=== PATIENT | male | born 1990 | race Caucasian/White ===

== ENCOUNTER 2017-07-11 12:38 | Emergency (ER) | payer OTHER, SELFPAY ==
--- NOTE | 2017-07-11 13:10 | ER ---
Nurse's Notes [facility] Name: Angel Best Age: 27 yrs Sex: Male : 1990 Arrival Date: 07/11/2017 Time: 12:42 Bed 12 Private MD: Gilberto Tan M Diagnosis: Cellulitis of left upper limb Presentation: 07/11 12:47 Presenting complaint: Patient states: " I had this bump on my elbow and I thought it ph was a pimple, then it started swelling and getting red and hot." Swelling noted to L elbow, pt denies fever, N/V/D, reports hx of staph infection. Transition of care: patient was not received from another setting of care. Onset of symptoms was July 11, 2017. Risk Assessment: Do you want to hurt yourself or someone else? Patient reports no desire to harm self or others. Initial Sepsis Screen: Does the patient meet any 2 criteria? No. Patient's initial sepsis screen is negative. Does the patient have a suspected source of infection? Yes:. Care prior to arrival: None. 12:47 Method Of Arrival: Ambulatory ph 12:47 Acuity: MIKE 4 ph Historical: - Allergies: 12:50 NKA; ph - Home Meds: 12:50 Prozac Oral [Active]; Trazodone Oral [Active]; ph - PMHx: 12:50 Depression; ph - PSHx: 12:50 None; ph - Immunization history:: Adult Immunizations unknown. - Social history:: Smoking status: Patient/guardian denies using tobacco. - Ebola Screening: : No symptoms or risks identified at this time. Screenin:00 Abuse screen: Denies threats or abuse. Denies injuries from another. Nutritional iw screening: No deficits noted. Tuberculosis screening: No symptoms or risk factors identified. Fall Risk None identified. Assessment: 13:01 General: Appears in no apparent distress. Behavior is calm, cooperative. Pain: iw Complains of pain in left elbow. Neuro: Level of Consciousness is awake, alert, obeys commands, Oriented to person, place, time, situation. Cardiovascular: Patient's skin is warm and dry. Musculoskeletal: Range of motion: intact in all extremities. Vital Signs: 12:49 BP 136 / 107; Pulse 76; Resp 18; Temp 98.4; Pulse Ox 96% on R/A; Weight 113.4 kg; ph Height 6 ft. 0 in. (182.88 cm); Pain 4/10; 12:49 Body Mass Index 33.91 (113.40 kg, 182.88 cm) ph ED Course: 12:42 Patient arrived in ED. mr 12:43 Gilberto Tan MD is Private Physician. mr 12:49 Triage completed. ph 12:50 Arm band placed on. ph 12:51 Jorge Montes PA is PHCP. cp 12:51 Jorge Gonzalez MD is Attending Physician. cp 13:01 Demetria Rose, RN is Primary Nurse. iw 13:05 Patient has correct armband on for positive identification. iw 13:09 Gilberto Tan MD is Referral Physician. cp 13:30 No provider procedures requiring assistance completed. Patient did not have IV access iw during this emergency room visit. Administered Medications: No medications were administered Outcome: 13:10 Discharge ordered by MD. cp 13:32 Discharged to home ambulatory. iw 13:32 Condition: good 13:32 Discharge instructions given to patient, Instructed on discharge instructions, follow up and referral plans. medication usage, Demonstrated understanding of instructions, follow-up care, medications, Prescriptions given X 3. 13:33 Patient left the ED. iw Signatures: Madison Rosa mr Demetria Rose, RN RN Nini Pittman RN RN Jorge Montes PA PA cp
--- NOTE | 2017-07-11 13:11 | EDPHYS ---
Physician Documentation [facility] Name: Angel Osborne Age: 27 yrs Sex: Male : 1990 Arrival Date: 07/11/2017 Time: 12:42 Bed 12 Private MD: Gilberto Tan M ED Physician Jorge Gonzalez HPI: 07/11 13:01 This 27 yrs old Male presents to ER via Ambulatory with complaints of Elbow cp pain. 13:01 Onset: The symptoms/episode began/occurred this morning. Associated signs and symptoms: cp Pertinent positives: swelling, erythema, Pertinent negatives: injury. Modifying factors: the patient symptoms are aggravated by palpation. Historical: - Allergies: 12:50 NKA; ph - Home Meds: 12:50 Prozac Oral [Active]; Trazodone Oral [Active]; ph - PMHx: 12:50 Depression; ph - PSHx: 12:50 None; ph - Immunization history:: Adult Immunizations unknown. - Social history:: Smoking status: Patient/guardian denies using tobacco. - Ebola Screening: : No symptoms or risks identified at this time. ROS: 13:03 Eyes: Negative for injury, pain, redness, and discharge. cp 13:03 Constitutional: Negative for body aches, chills, fever, poor PO intake. 13:03 ENT: Negative for drainage from ear(s), ear pain, sore throat, difficulty swallowing, difficulty handling secretions. 13:03 Cardiovascular: Negative for chest pain, edema, palpitations. 13:03 Respiratory: Negative for cough, shortness of breath, wheezing. 13:03 Abdomen/GI: Negative for abdominal pain, nausea, vomiting, and diarrhea. 13:03 MS/extremity: Negative for injury or acute deformity, decreased range of motion, paresthesias. 13:03 Skin: Positive for cellulitis, erythema, swelling, of the left elbow. 13:03 All other systems are negative. Exam: 13:07 Head/Face: Normocephalic, atraumatic. cp 13:07 Constitutional: The patient appears in no acute distress, alert, awake, non-toxic, well developed, well nourished. 13:07 Eyes: Periorbital structures: appear normal, Conjunctiva: normal, no exudate, no injection, Lids and lashes: appear normal, bilaterally. 13:07 ENT: External ear(s): are unremarkable, Nose: is normal, Mouth: is normal, Posterior pharynx: is normal, airway is patent, no erythema, no exudate. 13:07 Neck: ROM/movement: is normal, is supple, without pain, no range of motions limitations, no nuchal rigidity. 13:07 Chest/axilla: Inspection: normal, Palpation: is normal, no crepitus, no tenderness. 13:07 Cardiovascular: Rate: normal, Rhythm: regular, Pulses: Pulses are 2+ in left radial artery. 13:07 Respiratory: the patient does not display signs of respiratory distress, Respirations: normal, no use of accessory muscles, no retractions, no splinting, no tachypnea. 13:07 Abdomen/GI: Exam negative for discomfort, distension, guarding, Inspection: abdomen appears normal. 13:07 Back: pain, is absent, ROM is normal. 13:07 Skin: abscess, not appreciated, cellulitis, that is mild, patchy, on the posterior aspect left elbow, induration, is not appreciated. Vital Signs: 12:49 BP 136 / 107; Pulse 76; Resp 18; Temp 98.4; Pulse Ox 96% on R/A; Weight 113.4 kg; ph Height 6 ft. 0 in. (182.88 cm); Pain 4/10; 12:49 Body Mass Index 33.91 (113.40 kg, 182.88 cm) ph MDM: 12:51 Patient medically screened. cp 13:00 Differential diagnosis: cellulitis, bursitis, abscess, septic joint. 13:09 Data reviewed: vital signs, nurses notes, and as a result, I will discharge patient. 13:09 Counseling: I had a detailed discussion with the patient and/or guardian regarding: the historical points, exam findings, and any diagnostic results supporting the discharge/admit diagnosis, the need for outpatient follow up, a family practitioner, to return to the emergency department if symptoms worsen or persist or if there are any questions or concerns that arise at home. Administered Medications: No medications were administered Disposition: 07/11/17 13:10 Discharged to Home. Impression: Cellulitis of left upper limb. - Condition is Stable. - Discharge Instructions: Cellulitis. - Prescriptions for Doxycycline Hyclate 100 mg Oral Tablet - take 1 tablet by ORAL route every 12 hours; 20 tablet. Bactrim DS 800- 160 mg Oral Tablet - take 1 tablet by ORAL route every 12 hours for 10 days; 20 tablet. Ibuprofen 800 mg Oral Tablet - take 1 tablet by ORAL route every 8 hours As needed take with food; 30 tablet. - Medication Reconciliation Form, Thank You Letter, Antibiotic Education, Prescription Opioid Use form. - Follow up: Gilberto Tan MD; When: 48 Hours; Reason: Recheck today's complaints. - Problem is new. - Symptoms are unchanged. Addendum: 07/15/2017 08:46 Co-signature as Attending Physician, Jorge Gonzalez MD I agree with the assessment and c bolaños plan of care. Signatures: Jorge Gonzalez MD MD cha Williams, Irene, RN RN iw Nini Pittman RN RN Jorge Montes PA PA cp Corrections: (The following items were deleted from the chart) 07/11 13:33 13:10 07/11/2017 13:10 Discharged to Home. Impression: Cellulitis of left upper limb. iw Condition is Stable. Forms are Medication Reconciliation Form, Thank You Letter, Antibiotic Education, Prescription Opioid Use. Follow up: Gilberto Tna; When: 48 Hours; Reason: Recheck today's complaints. Problem is new. Symptoms are unchanged. cp
[2017-07-11 13:41] VITALS: BP 136/107; TEMP 98.4; O2SAT 96
== END 2017-07-11 13:33 | disposition home or self-care (01) ==
LOC: ER 12:38
DX: L03.114 Cellulitis of left upper limb (principal); F32.9 Major depressive disorder, single episode, unspecified
CPT/HCPCS: 99282

== ENCOUNTER 2017-07-13 01:32 | Emergency (ER) | payer SELFPAY ==
--- NOTE | 2017-07-13 03:08 | ER ---
Nurse's Notes [facility] Name: Angel Best Age: 27 yrs Sex: Male : 1990 Arrival Date: 07/13/2017 Time: 01:33 Bed 16 Private MD: Diagnosis: Cellulitis and acute lymphangitis of other parts of limb Presentation: 07/13 02:17 Presenting complaint: Patient states: swelling, redness, and pain to left elbow began 07/10/17. Came to ER that day and began on 2 unknown antibiotics. Symptoms continue to worsen since then. Transition of care: patient was not received from another setting of care. Onset of symptoms was July 10, 2017. Risk Assessment: Do you want to hurt yourself or someone else? Patient reports no desire to harm self or others. Initial Sepsis Screen: Does the patient meet any 2 criteria? No. Patient's initial sepsis screen is negative. Care prior to arrival: Medication(s) given: 2 unknown antibiotics prescribed. 02:17 Method Of Arrival: Ambulatory 02:17 Acuity: MIKE 3 Triage Assessment: 02:20 General: Appears in no apparent distress. Behavior is calm, cooperative. Pain: Complains of pain in left elbow Pain currently is 5 out of 10 on a pain scale. Historical: - Allergies: 02:20 NKA; fc - Home Meds: 02:20 Prozac Oral [Active]; Trazodone Oral [Active]; fc - PMHx: 02:20 Depression; fc - PSHx: 02:20 None; fc - Immunization history:: Adult Immunizations up to date. - Social history:: Smoking status: Patient/guardian denies using tobacco, never smoked. - Ebola Screening: : Patient negative for fever greater than or equal to 101.5 degrees Fahrenheit, and additional compatible Ebola Virus Disease symptoms. - Family history:: not pertinent. Screenin:35 Fall Risk None identified. ea 02:54 Abuse screen: Denies threats or abuse. Nutritional screening: No deficits noted. ea Tuberculosis screening: No symptoms or risk factors identified. Assessment: 02:53 General: Appears in no apparent distress. Behavior is calm, cooperative, appropriate ea for age. Pain: Complains of pain in left arm. Neuro: Level of Consciousness is awake, alert, obeys commands, Oriented to person, place, time, situation. Cardiovascular: Patient's skin is warm and dry. Respiratory: Airway is patent Respiratory effort is even, unlabored, Respiratory pattern is regular, symmetrical. GI: No signs and/or symptoms were reported involving the gastrointestinal system. : No signs and/or symptoms were reported regarding the genitourinary system. EENT: No signs and/or symptoms were reported regarding the EENT system. Derm: Skin is pink, warm \T\ dry. 03:32 Reassessment: Patient and/or family updated on plan of care and expected duration. Pain ea level reassessed. Patient is alert, oriented x 3, equal unlabored respirations, skin warm/dry/pink. Discharge instructions given to patient, verbalized the understanding of instructions. Patient denies pain at this time. Vital Signs: 02:20 BP 147 / 86; Pulse 89; Resp 16; Temp 98.4; Pulse Ox 96% ; Weight 113.4 kg; Height 6 ft. fc 0 in. (182.88 cm); Pain 5/10; 03:35 BP 138 / 70; Pulse 88; Resp 18; Temp 98(O); Pulse Ox 97% on R/A; Pain 0/10; ea 02:20 Body Mass Index 33.91 (113.40 kg, 182.88 cm) fc ED Course: 01:33 Patient arrived in ED. ds1 02:19 Triage completed. fc 02:20 Arm band placed on right wrist. Patient placed in waiting room. fc 02:53 Suzanne Sterling, RN is Primary Nurse. ea 02:53 Patient has correct armband on for positive identification. Bed in low position. Call ea light in reach. Side rails up X 1. 02:59 Jorge Gonzalez MD is Attending Physician. nicolette 03:07 Cheikh Johnson MD is Referral Physician. nicolette 03:23 No provider procedures requiring assistance completed. Patient did not have IV access ea during this emergency room visit. Administered Medications: 03:15 Drug: Doxycycline 100 mg Route: PO; ea 03:36 Follow up: Response: No adverse reaction ea 03:15 Drug: Bactrim (160 mg-800 mg (DS) 1 tablet Route: PO; ea 03:36 Follow up: Response: No adverse reaction ea Point of Care Testing: Blood Glucose: 03:34 Blood Glucose: 75 mg/dL; ea Ranges: Outcome: 03:07 Discharge ordered by . nicolette 03:33 Discharged to home ambulatory, with significant other. isabel 03:33 Condition: improved 03:33 Discharge instructions given to patient, Instructed on discharge instructions, follow up and referral plans. medication usage, Demonstrated understanding of instructions, follow-up care, medications, Prescriptions given X 3. 03:36 Patient left the ED. ea Signatures: Jorge Gonzalez MD MD cha Chretien, Felicia, RN RN Meeta Quintana [facility] Suzanne Sterling RN RN ea Corrections: (The following items were deleted from the chart) 03:34 03:23 Blood Glucose: Blood Glucose Reading=65 mg/dL. isabel hall
--- NOTE | 2017-07-13 03:08 | EDPHYS ---
Physician Documentation [facility] Name: Angel Best Age: 27 yrs Sex: Male : 1990 Arrival Date: 07/13/2017 Time: 01:33 Bed 16 Private MD: ED Physician Jorge Gonzalez HPI: 07/13 03:04 This 27 yrs old Male presents to ER via Ambulatory with complaints of nicolette Swelling of Arm/Elbow. 03:04 The patient or guardian complains of pain, swelling, tenderness. The complaints affect nicolette the left elbow. Context: The problem was sustained at home, resulted from unknown cause. Onset: The symptoms/episode began/occurred 3 day(s) ago. Treatment prior to arrival includes: bactrim, doxycycline. Modifying factors: The symptoms are alleviated by nothing. the symptoms are aggravated by nothing. Associated signs and symptoms: The patient has no apparent associated signs or symptoms. Historical: - Allergies: 02:20 NKA; fc - Home Meds: 02:20 Prozac Oral [Active]; Trazodone Oral [Active]; fc - PMHx: 02:20 Depression; fc - PSHx: 02:20 None; fc - Immunization history:: Adult Immunizations up to date. - Social history:: Smoking status: Patient/guardian denies using tobacco, never smoked. - Ebola Screening: : Patient negative for fever greater than or equal to 101.5 degrees Fahrenheit, and additional compatible Ebola Virus Disease symptoms. - Family history:: not pertinent. ROS: 03:04 Constitutional: Negative for fever, chills, and weight loss, Eyes: Negative for injury, nicolette pain, redness, and discharge, ENT: Negative for injury, pain, and discharge, Neck: Negative for injury, pain, and swelling, Cardiovascular: Negative for chest pain, palpitations, and edema, Respiratory: Negative for shortness of breath, cough, wheezing, and pleuritic chest pain, Abdomen/GI: Negative for abdominal pain, nausea, vomiting, diarrhea, and constipation, Back: Negative for injury and pain, : Negative for injury, bleeding, discharge, and swelling, Skin: Negative for injury, rash, and discoloration, Neuro: Negative for headache, weakness, numbness, tingling, and seizure, Psych: Negative for depression, anxiety, suicide ideation, homicidal ideation, and hallucinations, Allergy/Immunology: Negative for hives, rash, and allergies, Endocrine: Negative for neck swelling, polydipsia, polyuria, polyphagia, and marked weight changes, Hematologic/Lymphatic: Negative for swollen nodes, abnormal bleeding, and unusual bruising. 03:04 MS/extremity: Positive for decreased range of motion, erythema, pain, swelling, tenderness, of the left elbow. Exam: 03:04 Constitutional: This is a well developed, well nourished patient who is awake, alert, nicolette and in no acute distress. Head/Face: Normocephalic, atraumatic. Eyes: Pupils equal round and reactive to light, extra-ocular motions intact. Lids and lashes normal. Conjunctiva and sclera are non-icteric and not injected. Cornea within normal limits. Periorbital areas with no swelling, redness, or edema. ENT: Nares patent. No nasal discharge, no septal abnormalities noted. Tympanic membranes are normal and external auditory canals are clear. Oropharynx with no redness, swelling, or masses, exudates, or evidence of obstruction, uvula midline. Mucous membranes moist. Neck: Trachea midline, no thyromegaly or masses palpated, and no cervical lymphadenopathy. Supple, full range of motion without nuchal rigidity, or vertebral point tenderness. No Meningismus. Chest/axilla: Normal chest wall appearance and motion. Nontender with no deformity. No lesions are appreciated. Cardiovascular: Regular rate and rhythm with a normal S1 and S2. No gallops, murmurs, or rubs. Normal PMI, no JVD. No pulse deficits. Respiratory: Lungs have equal breath sounds bilaterally, clear to auscultation and percussion. No rales, rhonchi or wheezes noted. No increased work of breathing, no retractions or nasal flaring. Abdomen/GI: Soft, non-tender, with normal bowel sounds. No distension or tympany. No guarding or rebound. No evidence of tenderness throughout. Back: No spinal tenderness. No costovertebral tenderness. Full range of motion. Male : Normal genitalia with no discharge or lesions. MS/ Extremity: Pulses equal, no cyanosis. Neurovascular intact. Full, normal range of motion. Neuro: Awake and alert, GCS 15, oriented to person, place, time, and situation. Cranial nerves II-XII grossly intact. Motor strength 5/5 in all extremities. Sensory grossly intact. Cerebellar exam normal. Normal gait. Psych: Awake, alert, with orientation to person, place and time. Behavior, mood, and affect are within normal limits. 03:04 Skin: cellulitis, that is mild, confluent, well demarcated, on the left elbow. Vital Signs: 02:20 BP 147 / 86; Pulse 89; Resp 16; Temp 98.4; Pulse Ox 96% ; Weight 113.4 kg; Height 6 ft. fc 0 in. (182.88 cm); Pain 5/10; 03:35 BP 138 / 70; Pulse 88; Resp 18; Temp 98(O); Pulse Ox 97% on R/A; Pain 0/10; ea 02:20 Body Mass Index 33.91 (113.40 kg, 182.88 cm) fc MDM: 02:59 Patient medically screened. [facility] 03:08 Data reviewed: vital signs, nurses notes, lab test result(s), EKG, radiologic studies, [facility] plain films. 07/13 03:04 Order name: Blood Glucose Level; Complete Time: 03:26 [facility] Administered Medications: 03:15 Drug: Doxycycline 100 mg Route: PO; ea 03:36 Follow up: Response: No adverse reaction ea 03:15 Drug: Bactrim (160 mg-800 mg (DS) 1 tablet Route: PO; ea 03:36 Follow up: Response: No adverse reaction ea Point of Care Testing: Blood Glucose: 03:34 Blood Glucose: 75 mg/dL; ea Ranges: Critical Glucose Levels:Adult <50 mg/dl or >400 mg/dl <40 mg/dl or >180 mg/dl Disposition: 07/13/17 03:07 Discharged to Home. Impression: Cellulitis and acute lymphangitis of other parts of limb. - Condition is Stable. - Discharge Instructions: Cellulitis, [id number]. - Prescriptions for Doxycycline Hyclate 100 mg Oral Tablet - take 1 tablet by ORAL route every 12 hours; 20 tablet. Motrin IB 200 mg Oral Tablet - take 2 tablet by ORAL route every 6 hours As needed as needed with food; 30 tablet. Bactrim DS 800- 160 mg Oral Tablet - take 1 tablet by ORAL route every 12 hours for 10 days; 20 tablet. - Medication Reconciliation Form, Thank You Letter, Antibiotic Education, Prescription Opioid Use form. - Follow up: Private Physician; When: 2 - 3 days; Reason: Recheck today's complaints, Continuance of care, Re-evaluation by your physician. Follow up: Cheikh Johnson MD; When: 2 - 3 days; Reason: Recheck today's complaints, Re-evaluation by your physician. - Problem is new. - Symptoms have improved. Signatures: Jorge Gonzalez MD MD cha Chretien, Felicia RN Suzanne Connor RN RN ea Corrections: (The following items were deleted from the chart) 03:36 03:07 07/13/2017 03:07 Discharged to Home. Impression: Cellulitis and acute ea lymphangitis of other parts of limb. Condition is Stable. Forms are Medication Reconciliation Form, Thank You Letter, Antibiotic Education, Prescription Opioid Use. Follow up: Private Physician; When: 2 - 3 days; Reason: Recheck today's complaints, Continuance of care, Re-evaluation by your physician. Follow up: Cheikh Johnson; When: 2 - 3 days; Reason: Recheck today's complaints, Re-evaluation by your physician. Problem is new. Symptoms have improved. nicolette
[2017-07-13] MEDS ORDERED: SMZ./TMP. 800/160 MG TABLET ONE (03:10)
[2017-07-13] MEDS ORDERED: DOXYCYCLINE 100 MG CAP PO ONE (03:10)
[2017-07-13 03:53] VITALS: BP 138/70; TEMP 98; O2SAT 97
== END 2017-07-13 03:36 | disposition home or self-care (01) ==
LOC: ER 01:32
DX: L03.114 Cellulitis of left upper limb (principal); I89.1 Lymphangitis; F32.9 Major depressive disorder, single episode, unspecified
CPT/HCPCS: 82962; 99283

== ENCOUNTER 2017-10-27 00:58 | Emergency (ER) | payer SELFPAY ==
--- NOTE | 2017-10-27 01:58 | EDPHYS ---
Physician Documentation [facility] Name: Angel Osborne Age: 27 yrs Sex: Male : 1990 Arrival Date: 10/27/2017 Time: 01:04 Bed 6 Private MD: ED Physician Charlie Montano HPI: 10/27 01:33 This 27 yrs old Male presents to ER via Ambulatory with complaints of Rectal cp Bleeding. 01:33 The patient presents to the emergency department with bleeding from the rectum/anus. cp 01:33 Onset: The symptoms/episode began/occurred 3 week(s) ago, intermittent. cp 01:33 Context: the patient history of hemorrhoids . Associate signs and symptoms: Pertinent cp positives: constipation, lower GI bleeding, bright red, Pertinent negatives: abdominal pain, diarrhea, fever, rectal pain. Historical: - Allergies: 01:21 NKA; fc - Home Meds: 01:21 None [Active]; fc - PMHx: 01:21 Depression; hemorrhoids; fc - PSHx: 01:21 None; fc - Immunization history:: Last tetanus immunization: unknown. - Social history:: Smoking status: Patient uses tobacco products, Vaps, Patient uses alcohol, occasionally. Patient/guardian denies using street drugs. - Ebola Screening: : Patient negative for fever greater than or equal to 101.5 degrees Fahrenheit, and additional compatible Ebola Virus Disease symptoms Patient denies exposure to infectious person Patient denies travel to an Ebola-affected area in the 21 days before illness onset. ROS: 01:34 Eyes: Negative for injury, pain, redness, and discharge. cp 01:34 Constitutional: Negative for body aches, chills, fever, poor PO intake. 01:34 ENT: Negative for drainage from ear(s), ear pain, sore throat, difficulty swallowing, difficulty handling secretions. 01:34 Cardiovascular: Negative for chest pain, palpitations. 01:34 Respiratory: Negative for cough, shortness of breath, wheezing. 01:34 Abdomen/GI: Positive for rectal bleeding, Negative for abdominal pain, vomiting, diarrhea. 01:34 Back: Negative for pain at rest, pain with movement. 01:34 All other systems are negative. Exam: 01:52 Head/Face: Normocephalic, atraumatic. cp 01:52 Constitutional: The patient appears in no acute distress, alert, awake, comfortable, non-toxic, well developed, well nourished. 01:52 Eyes: Periorbital structures: appear normal, Conjunctiva: normal, no exudate, no injection, Sclera: no appreciated abnormality, Lids and lashes: appear normal, bilaterally. 01:52 ENT: External ear(s): are unremarkable, Nose: is normal, Mouth: Lips: moist, Oral mucosa: moist. 01:52 Chest/axilla: Inspection: normal. 01:52 Cardiovascular: Rate: normal. 01:52 Respiratory: the patient does not display signs of respiratory distress, Respirations: normal. 01:52 Abdomen/GI: Inspection: abdomen appears normal, Bowel sounds: active, all quadrants, Palpation: abdomen is soft and non-tender, in all quadrants, Rectal exam: hemorrhoid(s), are not appreciated, fissure noted. 01:52 Back: pain, is absent, ROM is normal. Vital Signs: 01:05 BP 139 / 95; Pulse 95; Resp 20; Temp 98.1(O); Pulse Ox 100% on R/A; Weight 111.13 kg fc (R); Height 6 ft. 0 in. (182.88 cm) (R); Pain 0/10; 01:05 Body Mass Index 33.23 (111.13 kg, 182.88 cm) fc MDM: 01:11 Patient medically screened. cp 01:55 Differential diagnosis: hemorrhoids, fissure, abscess, pilonidal cyst. Data reviewed: vital signs, nurses notes, and as a result, I will discharge patient. Counseling: I had a detailed discussion with the patient and/or guardian regarding: the historical points, exam findings, and any diagnostic results supporting the discharge/admit diagnosis, to return to the emergency department if symptoms worsen or persist or if there are any questions or concerns that arise at home. Administered Medications: No medications were administered Disposition: 02:04 Co-signature as Attending Physician, Charlie Montano MD. pkl Disposition: 10/27/17 01:57 Discharged to Home. Impression: Anal fissure, unspecified. - Condition is Stable. - Discharge Instructions: Anal Fissure, Adult, How to Take a Sitz Bath. - Medication Reconciliation Form, Thank You Letter, Antibiotic Education, Prescription Opioid Use form. - Follow up: Emergency Department; When: As needed; Reason: Worsening of condition. - Problem is new. - Symptoms are unchanged. Signatures: Charlie Montano MD MD pkl Chretien, Felicia, RN RN Jorge Winston PA PA cp Bryson, James, RN RN jb4 Corrections: (The following items were deleted from the chart) 01:58 01:57 10/27/2017 01:57 Discharged to Home. 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 Condition is Stable. Forms are Medication Reconciliation Form, Thank You Letter, Antibiotic Education, Prescription Opioid Use. Follow up: Emergency Department; When: As needed; Reason: Worsening of condition. Problem is new. Symptoms are unchanged. cp 02:03 01:58 10/27/2017 01:57 Discharged to Home. Impression: Anal fissure, unspecified. jb4 Condition is Stable. Discharge Instructions: Anal Fissure, Adult. Forms are Medication Reconciliation Form, Thank You Letter, Antibiotic Education, Prescription Opioid Use. Follow up: Emergency Department; When: As needed; Reason: Worsening of condition. Problem is new. Symptoms are unchanged. cp
--- NOTE | 2017-10-27 01:58 | ER ---
Nurse's Notes [facility] Name: Angel Best Age: 27 yrs Sex: Male : 1990 Arrival Date: 10/27/2017 Time: 01:04 Bed 6 Private MD: Diagnosis: Anal fissure, unspecified Presentation: 10/27 01:05 Presenting complaint: Patient states: that 3 weeks ago he started to have bright red fc blood when he has a bowel movement. Blood is on paper and in toilet. Denies constipation. States that this happened 1 yr ago and it just stopped. Does have hx of hemorrhoids. Transition of care: patient was not received from another setting of care. Onset of symptoms was September 2017. Risk Assessment: Do you want to hurt yourself or someone else? Patient reports no desire to harm self or others. Initial Sepsis Screen: Does the patient meet any 2 criteria? HR > 90 bpm. Yes Does the patient have a suspected source of infection? No. Patient's initial sepsis screen is negative. Care prior to arrival: None. 01:05 Method Of Arrival: Ambulatory 01:05 Acuity: MIKE 4 fc Historical: - Allergies: 01:21 NKA; fc - Home Meds: 01:21 None [Active]; fc - PMHx: 01:21 Depression; hemorrhoids; fc - PSHx: 01:21 None; fc - Immunization history:: Last tetanus immunization: unknown. - Social history:: Smoking status: Patient uses tobacco products, Vaps, Patient uses alcohol, occasionally. Patient/guardian denies using street drugs. - Ebola Screening: : Patient negative for fever greater than or equal to 101.5 degrees Fahrenheit, and additional compatible Ebola Virus Disease symptoms Patient denies exposure to infectious person Patient denies travel to an Ebola-affected area in the 21 days before illness onset. Screenin:05 Abuse screen: Denies threats or abuse. Nutritional screening: No deficits noted. fc Tuberculosis screening: No symptoms or risk factors identified. Fall Risk None identified. Assessment: 01:57 General: Appears in no apparent distress. comfortable, Behavior is calm, cooperative, jb4 appropriate for age. Pain: Denies pain. Neuro: Level of Consciousness is awake, alert, obeys commands, Oriented to person, place, time, situation. Cardiovascular: Patient's skin is warm and dry. Respiratory: Airway is patent Respiratory effort is even, unlabored, Respiratory pattern is regular, symmetrical. GI: Abdomen is obese, Bowel sounds present X 4 quads. Abd is soft and non tender X 4 quads. : No signs and/or symptoms were reported regarding the genitourinary system. EENT: No signs and/or symptoms were reported regarding the EENT system. Derm: Skin is intact, Skin is pink, warm \T\ dry. Musculoskeletal: Circulation, motion, and sensation intact. Vital Signs: 01:05 BP 139 / 95; Pulse 95; Resp 20; Temp 98.1(O); Pulse Ox 100% on R/A; Weight 111.13 kg (R); Height 6 ft. 0 in. (182.88 cm) (R); Pain 0/10; 01:05 Body Mass Index 33.23 (111.13 kg, 182.88 cm) ED Course: 01:04 Patient arrived in ED. al2 01:05 Arm band placed on Patient placed in an exam room, on a stretcher. fc 01:05 Patient has correct armband on for positive identification. Bed in low position. Call fc light in reach. 01:05 No provider procedures requiring assistance completed. fc 01:09 Jorge Montes PA is PHCP. cp 01:09 Charlie Montano MD is Attending Physician. cp 01:19 Triage completed. 01:57 Emerson Resendiz, RN is Primary Nurse. jb4 02:02 Patient did not have IV access during this emergency room visit. jb4 Administered Medications: No medications were administered Outcome: 01:57 Discharge ordered by . cp 02:02 Discharged to home ambulatory. jb4 02:02 Condition: stable 02:02 Discharge instructions given to patient, Instructed on discharge instructions, follow up and referral plans. Demonstrated understanding of instructions, follow-up care. 02:03 Patient left the ED. jb4 Signatures: Karie Hung RN RN Jorge Montes PA PA cp Bryson, James, RN RN Izabel Hatfield al2
[2017-10-27 02:07] VITALS: BP 139/95; TEMP 98.1; O2SAT 100
== END 2017-10-27 02:03 | disposition home or self-care (01) ==
LOC: ER 00:58
DX: K60.2 Anal fissure, unspecified (principal); Z72.0 Tobacco use
CPT/HCPCS: 99281

== ENCOUNTER 2020-06-14 21:52 | Emergency (ER) | payer BC, SELFPAY ==
[2020-06-14] MEDS ORDERED: ONDANSETRON 4 MG/2 ML VIAL ONE (23:17)
[2020-06-14] MEDS ORDERED: NA CHLORIDE 0.9% 1,000 ML ONE (23:17)
[2020-06-14 23:29] LABS: Absolute Lymphocytes (CBC) 2.5 K/uL (0.7-4.9); Basophils % 0.5 % (0-1.3); Lymphocytes % 24.4 % (15.3-44.8); MPV 10.6 fL (7.6-11.3); RBC Red Blood Cell Count 5.07 M/uL (4.33-5.43)
[2020-06-14 23:38] LABS: Albumin 4.1 g/dL (3.4-5.0); Bilirubin Direct 0.1 mg/dL (0-0.2); Bilirubin Total 0.4 mg/dL (0.2-1.0); Potassium 3.5 mmol/L (3.5-5.1); Protein, Total 7.6 g/dL (6.4-8.2)
--- NOTE | 2020-06-15 01:27 | ER ---
Nurse's Notes [facility] Name: Angel Best Age: 30 yrs Sex: Male : 1990 Arrival Date: 06/14/2020 Time: 21:54 Bed 14 Private MD: Diagnosis: Abdominal pain Presentation: 06/14 22:05 Chief complaint: Patient states: he has been vomiting with abdominal pain x 1 month has bb been seeing a physician who told him if he keeps vomiting to go to the ED. Coronavirus screen: At this time, the client does not indicate any symptoms associated with coronavirus-19. Ebola Screen: No symptoms or risks identified at this time. Initial Sepsis Screen: Does the patient meet any 2 criteria? No. Patient's initial sepsis screen is negative. Does the patient have a suspected source of infection? No. Patient's initial sepsis screen is negative. Risk Assessment: Do you want to hurt yourself or someone else? Patient reports no desire to harm self or others. Onset of symptoms was April 2020. 22:05 Method Of Arrival: Ambulatory bb 22:05 Acuity: MIKE 3 Triage Assessment: 22:13 General: Appears in no apparent distress. Behavior is calm, cooperative. Pain: bb Complains of pain in abdomen Pain currently is 5 out of 10 on a pain scale. Neuro: Level of Consciousness is awake, alert, obeys commands, Oriented to person, place, time, situation. Cardiovascular: No deficits noted. Respiratory: Airway is patent Respiratory effort is even, unlabored, Respiratory pattern is regular. GI: Reports lower abdominal pain, upper abdominal pain. Derm: Skin is pink, warm \T\ dry. Musculoskeletal: Circulation, motion, and sensation intact. Historical: - Allergies: 22:07 NKA; bb - Home Meds: 22:07 None [Active]; bb - PMHx: 22:07 Depression; hemorrhoids; bb - PSHx: 22:07 None; bb - Immunization history:: Adult Immunizations up to date. - Social history:: Smoking status: Reported history of juuling and/or vaping. Patient uses alcohol, occasionally. Patient/guardian denies using street drugs. Screenin:34 Abuse screen: Denies threats or abuse. Denies injuries from another. Nutritional jm8 screening: No deficits noted. Tuberculosis screening: No symptoms or risk factors identified. Fall Risk None identified. Assessment: 22:31 General: Appears in no apparent distress. Behavior is calm, cooperative, appropriate jm8 for age. Pain: Complains of pain in abdomen Pain currently is 5 out of 10 on a pain scale. Aggravated by coughing. Neuro: No deficits noted. Level of Consciousness is awake, alert, obeys commands, Oriented to person, place, time. Cardiovascular: No deficits noted. Respiratory: No deficits noted. Airway is patent Trachea midline Respiratory effort is even, unlabored. GI: Abdomen is round Reports lower abdominal pain, upper abdominal pain, nausea, vomiting, since one month ago. : No deficits noted. EENT: No deficits noted. Derm: No deficits noted. Musculoskeletal: No deficits noted. Vital Signs: 22:05 BP 145 / 95; Pulse 103; Resp 16 S; Temp 98(TE); Pulse Ox 99% on R/A; Weight 122.47 kg bb (R); Height 6 ft. 0 in. (182.88 cm) (R); Pain 5/10; 06/15 01:51 BP 133 / 87; Pulse 94; Resp 16; Pulse Ox 99% on R/A; jm8 06/14 22:05 Body Mass Index 36.62 (122.47 kg, 182.88 cm) bb ED Course: 06/14 21:54 Patient arrived in ED. es 22:06 Triage completed. bb 22:07 Arm band placed on Patient placed in waiting room, Patient notified of wait time. bb 22:34 Patient has correct armband on for positive identification. Bed in low position. Call 8 light in reach. Side rails up X 1. 22:34 No provider procedures requiring assistance completed. jm8 22:38 Charlie Montano MD is Attending Physician. pkl 23:03 Basic Metabolic Panel Sent. jm8 23:03 Hepatic Function Sent. jm8 23:03 CBC with Diff Sent. jm8 23:03 Liver (Hepatic) Function Sent. jm8 23:03 Lipase Sent. jm8 23:03 Basic Metabolic Panel Sent. jm8 23:04 Inserted saline lock: 18 gauge in right antecubital area, using aseptic technique. jm8 06/15 00:12 CT Abd/Pelvis - IV Contrast Only In Process Unspecified. EDMS 01:51 IV discontinued, intact, bleeding controlled, No redness/swelling at site. jm8 Administered Medications: Discontinued: NS 0.9% 1000 ml IV at 1000 ml once 06/14 23:00 Drug: NS 0.9% 1000 ml Route: IV; Rate: 1000 ml; Site: right antecubital; jm8 06/15 01:52 Follow up: Response: No adverse reaction jm8 06/14 23:00 Drug: Zofran (Ondansetron) 4 mg Route: IVP; Site: right antecubital; jm8 06/15 01:52 Follow up: Response: No adverse reaction [email or web address] Outcome: 01:27 Discharge ordered by . lyly 01:53 Patient left the ED. [email or web address] 01:53 Discharged to home ambulatory. jm8 01:53 Condition: good 01:53 Discharge instructions given to patient, Instructed on discharge instructions, follow up and referral plans. medication usage, Demonstrated understanding of instructions, follow-up care, medications. Signatures: Dispatcher [employer] Charlie Soares MD MD pkl Salyer, Edna es Ballard, Brenda, RN RN bb Malcaba, Joseph, RN RN jm8 Corrections: (The following items were deleted from the chart) 06/14 22:34 22:31 Pain: Complains of pain in abdomen Pain currently is 6 out of 10 on a pain scale. jm8 Aggravated by coughing jm8
--- NOTE | 2020-06-15 01:28 | EDPHYS ---
Physician Documentation [facility] Name: Angel Osborne Age: 30 yrs Sex: Male : 1990 Arrival Date: 06/14/2020 Time: 21:54 Bed 14 Private MD: ED Physician Charlie Montano HPI: 06/14 22:48 This 30 yrs old Male presents to ER via Ambulatory with complaints of pkl Vomiting, Abdominal Pain. 22:48 The patient presents with abdominal pain in the upper abdomen. Onset: The pkl symptoms/episode began/occurred 1 month(s) ago. The symptoms do not radiate. Associated signs and symptoms: Pertinent positives: nausea and vomiting. Historical: - Allergies: 22:07 NKA; bb - Home Meds: 22:07 None [Active]; bb - PMHx: 22:07 Depression; hemorrhoids; bb - PSHx: 22:07 None; bb - Immunization history:: Adult Immunizations up to date. - Social history:: Smoking status: Reported history of juuling and/or vaping. Patient uses alcohol, occasionally. Patient/guardian denies using street drugs. ROS: 22:48 Eyes: Negative for injury, pain, redness, and discharge, ENT: Negative for injury, pkl pain, and discharge, Neck: Negative for injury, pain, and swelling, Cardiovascular: Negative for chest pain, palpitations, and edema, Respiratory: Negative for shortness of breath, cough, wheezing, and pleuritic chest pain. 22:48 Abdomen/GI: Positive for abdominal pain, nausea and vomiting. 22:48 Back: Negative for acute changes. pkl 22:48 : Negative for urinary symptoms. 22:48 MS/extremity: Negative for acute changes. 22:48 Skin: Negative for rash. 22:48 Neuro: Negative for altered mental status, loss of consciousness. Exam: 22:48 Head/Face: Normocephalic, atraumatic. Eyes: Pupils equal round and reactive to light, pkl extra-ocular motions intact. Lids and lashes normal. Conjunctiva and sclera are non-icteric and not injected. Cornea within normal limits. Periorbital areas with no swelling, redness, or edema. ENT: Nares patent. No nasal discharge, no septal abnormalities noted. Tympanic membranes are normal and external auditory canals are clear. Oropharynx with no redness, swelling, or masses, exudates, or evidence of obstruction, uvula midline. Mucous membranes moist. Neck: Trachea midline, no thyromegaly or masses palpated, and no cervical lymphadenopathy. Supple, full range of motion without nuchal rigidity, or vertebral point tenderness. No Meningismus. Chest/axilla: Normal chest wall appearance and motion. Nontender with no deformity. No lesions are appreciated. Cardiovascular: Regular rate and rhythm with a normal S1 and S2. No gallops, murmurs, or rubs. Normal PMI, no JVD. No pulse deficits. Respiratory: Lungs have equal breath sounds bilaterally, clear to auscultation and percussion. No rales, rhonchi or wheezes noted. No increased work of breathing, no retractions or nasal flaring. 22:48 Abdomen/GI: Bowel sounds: normal, Palpation: soft, mild abdominal tenderness, in the right upper quadrant and left upper quadrant. 22:48 Back: Exam negative for acute changes. 22:48 : Exam negative for acute changes. 22:48 Musculoskeletal/extremity: Exam is negative for acute changes. 22:48 Skin: Exam negative for rash. 22:48 Neuro: Orientation: is normal, Mentation: is normal, Cranial nerves: grossly normal, Motor: is normal. Vital Signs: 22:05 BP 145 / 95; Pulse 103; Resp 16 S; Temp 98(TE); Pulse Ox 99% on R/A; Weight 122.47 kg bb (R); Height 6 ft. 0 in. (182.88 cm) (R); Pain 5/10; 06/15 01:51 BP 133 / 87; Pulse 94; Resp 16; Pulse Ox 99% on R/A; jm8 06/14 22:05 Body Mass Index 36.62 (122.47 kg, 182.88 cm) bb MDM: 06/14 22:39 Patient medically screened. pkl 06/15 01:22 Data reviewed: vital signs, nurses notes, lab test result(s), radiologic studies, CT pkl scan. 06/14 22:46 Order name: Basic Metabolic Panel pkl 06/14 22:46 Order name: CBC with Diff; Complete Time: 23:46 pkl 06/14 22:46 Order name: Hepatic Function pkl 06/14 22:46 Order name: Lipase pkl 06/14 22:47 Order name: Basic Metabolic Panel; Complete Time: 23:46 EDMS 06/14 22:47 Order name: Liver (Hepatic) Function; Complete Time: 23:46 EDMS 06/14 22:46 Order name: IV Saline Lock; Complete Time: 23:03 pkl 06/14 22:46 Order name: Labs collected and sent; Complete Time: 23:03 pkl 06/14 22:47 Order name: Lipase; Complete Time: 23:46 EDMS 06/14 22:47 Order name: CT Abd/Pelvis - IV Contrast Only [facility] Administered Medications: Discontinued: NS 0.9% 1000 ml IV at 1000 ml once 06/14 23:00 Drug: NS 0.9% 1000 ml Route: IV; Rate: 1000 ml; Site: right antecubital; [facility] 06/15 01:52 Follow up: Response: No adverse reaction [facility] 06/14 23:00 Drug: Zofran (Ondansetron) 4 mg Route: IVP; Site: right antecubital; [facility] 06/15 01:52 Follow up: Response: No adverse reaction [facility] Disposition: 06/15/20 01:27 Discharged to Home. Impression: Abdominal pain. - Condition is Stable. - Prescriptions for Protonix 40 mg Oral Tablet - take 1 tablet by ORAL route once daily; 30 tablet. Zofran 4 mg Oral Tablet - take 1 tablet by ORAL route every 12 hours As needed; 20 tablet. - Medication Reconciliation Form, Thank You Letter, Antibiotic Education, Prescription Opioid Use form. - Follow up: Private Physician; When: 1 - 2 days; Reason: Re-evaluation by your physician. - Problem is new. - Symptoms are unchanged. Signatures: Dispatcher [employer] [facility] Charlie Montano MD MD pkl Ballard, Brenda RN RN Derek Hdz RN RN jm8 Corrections: (The following items were deleted from the chart) 01:53 01:27 06/15/2020 01:27 Discharged to Home. Impression: Abdominal pain. Condition is [facility] Stable. Forms are Medication Reconciliation Form, Thank You Letter, Antibiotic Education, Prescription Opioid Use. Follow up: Private Physician; When: 1 - 2 days; Reason: Re-evaluation by your physician. Problem is new. Symptoms are unchanged. pkl
[2020-06-15 02:15] VITALS: BP 133/87; O2SAT 99
[2020-06-15 02:16] VITALS: TEMP 98
--- NOTE | 2020-06-15 12:59 | RAD REPORT ---
EXAM DESCRIPTION: CT Abdomen and Pelvis COMPARISON: None. CLINICAL HISTORY: [facility] MAIN ABD PAIN TECHNIQUE: CT of the abdomen and pelvis was acquired with IV contrast material. Coronal and sagitt al reconstructions were obtained. Automated exposure control was utilized on this examination as a dose lowering technique. FINDINGS: Lung bases: Clear. Liver: Mild hepatic steatosis. Gallbladder and biliary: Contracted gallbladder. Unremarkable biliary tree. Pancreas: Normal. Spleen: Normal. Adrenal glands: Normal adrenal glands. Kidneys: Normal kidneys Stomach and Small Bowel: The stomach and small bowel are normal. Urinary bladder: Normal. Prostate/Male Urogenital: Normal. Colon and Appendix: The colon is unremarkable. No evidence of appendicitis. Retroperitoneum and lymph nodes: Normal. Vascular: Normal. Peritoneal cavity: No ascites or free air. Musculoskeletal and soft tissues: Small fat-containing right inguinal hernia. No aggressive bone lesi ons. No compression fracture. 2 mm anterolisthesis L5 on S1 with chronic appearing bilateral L5 par s defects. IMPRESSION: 1. No acute intra-abdominal abnormality. 2. Mild hepatic steatosis. Electronically signed by: Maurice Regan MD 06/15/2020 12:19 AM CDT Due to temporary technical issues with the PACS/Fluency reporting system, reports are being signed by the in house radiologists without review as a courtesy to insure prompt reporting. The interpreting radiologist is fully responsible for the content of the report.
== END 2020-06-15 01:53 | disposition home or self-care (01) ==
LOC: ER 21:52
DX: R10.10 Upper abdominal pain, unspecified (principal); R11.2 Nausea with vomiting, unspecified
CPT/HCPCS: 36415; 74177; 80048; 80076; 83690; 85025; 96374; 99284; J2405; J7030; Q9967

== ENCOUNTER 2021-02-20 07:19 | Emergency (ER) | payer BC ==
[2021-02-20 07:52] LABS: Absolute Lymphocytes (CBC) 1.6 K/uL (0.7-4.9); Hematocrit 45.7 % (39.6-49.0); Lymphocytes % 21.4 % (15.3-44.8); RBC Red Blood Cell Count 5.31 M/uL (4.33-5.43)
[2021-02-20 08:07] LABS: ALT/SGPT 75 U/L (12-78); AST/SGOT 28 U/L (15-37); Albumin 3.9 g/dL (3.4-5.0); Alkaline Phosphatase 60 U/L (45-117); BUN Blood Urea Nitrogen 11 mg/dL (7-18); Bicarbonate 28 mmol/L (21-32); Bilirubin Direct 0.2 mg/dL (0-0.2); Bilirubin Total 0.8 mg/dL (0.2-1.0); Glucose Level 92 mg/dL (74-106); Potassium 3.5 mmol/L (3.5-5.1); Protein, Total 7.5 g/dL (6.4-8.2); Sodium Level 140 mmol/L (136-145)
[2021-02-20 08:08] LABS: Lipase 68 U/L (73-393)
--- NOTE | 2021-02-20 09:13 | RAD REPORT ---
EXAM DESCRIPTION: US - Abdomen Exam Limited - 02/20/2021 8:25 am CLINICAL HISTORY: Abdominal pain. COMPARISON: None. FINDINGS: The gallbladder wall is not thickened. A gallstone is not seen. The biliary tree is normal caliber. Fatty liver IMPRESSION: Unremarkable gallbladder ultrasound.
--- NOTE | 2021-02-20 09:53 | RAD REPORT ---
EXAM DESCRIPTION: CT - Abdomen Pelvis W Contrast - 02/20/2021 9:35 am CLINICAL HISTORY: Abdominal pain COMPARISON: May 2020 TECHNIQUE: Computed axial tomography of the abdomen pelvis was obtained. 100 cc Isovue-300 was admin istered intravenously. Oral contrast was not requested which limits evaluation of bowel. All CT scans are performed using dose optimization technique as appropriate and may include automated exposure control or mA/KV adjustment according to patient size. FINDINGS: The liver, spleen, pancreas, adrenal and kidneys appear unremarkable. There is no evidence of diverticulitis. Normal appendix Spondylolysis L5. Mild anterior subluxation L5 on S1. Tiny umbilical hernia IMPRESSION: No acute abnormality is displayed.
--- NOTE | 2021-02-20 09:57 | ER ---
Nurse's Notes [facility] [place] Name: Angel Best Age: 30 yrs Sex: Male : 1990 Arrival Date: 02/20/2021 Time: 07:19 Bed Waiting Private MD: Calos Rea Diagnosis: Upper abdominal pain, unspecified;Nausea with vomiting, unspecified Presentation: 02/20 07:25 Chief complaint: Patient states: Epigastric pain for 1 week, worse for 48 hours. Had ll1 some N/V/D. No fever. Coronavirus screen: Vaccine status: Patient reports being unvaccinated. Client denies travel out of the [place] in the last 14 days. At this time, the client does not indicate any symptoms associated with coronavirus-19. Ebola Screen: Patient denies travel to an Ebola-affected area in the 21 days before illness onset. Initial Sepsis Screen: Does the patient meet any 2 criteria? HR > 90 bpm. No. Patient's initial sepsis screen is negative. Does the patient have a suspected source of infection? Yes: Acute abdominal pain. Risk Assessment: Do you want to hurt yourself or someone else? Patient reports no desire to harm self or others. Onset of symptoms was February 09, 2021. 07:25 Method Of Arrival: Ambulatory ll1 07:25 Acuity: MIKE 3 ll1 Triage Assessment: 07:26 General: Appears in no apparent distress. Behavior is calm, cooperative. Pain: Quality ll1 of pain is described as aching. Neuro: No deficits noted. Cardiovascular: No deficits noted. Respiratory: No deficits noted. GI: Abdomen is flat, Bowel sounds present X 4 quads. Reports upper abdominal pain, diarrhea, nausea, vomiting. Historical: - Allergies: 07:25 NKA; ll1 - PMHx: 07:25 Depression; hemorrhoids; ll1 - PSHx: 07:25 None; ll1 - Immunization history:: Client reports having NOT received the Covid vaccine. - Social history:: Smoking status: Reported history of juuling and/or vaping. Screenin:26 Abuse screen: Denies threats or abuse. Nutritional screening: No deficits noted. ll1 Tuberculosis screening: No symptoms or risk factors identified. 09:00 Fall Risk IV access (20 points). Total Arboleda Fall Scale indicates No Risk (0-24 pts). ll1 Assessment: 07:45 Reassessment: No changes from previously documented assessment. Patient and/or family ll1 updated on plan of care and expected duration. Pain level reassessed. Patient is alert, oriented x 3, equal unlabored respirations, skin warm/dry/pink. 08:45 Reassessment: No changes from previously documented assessment. Patient and/or family ll1 updated on plan of care and expected duration. Pain level reassessed. Patient is alert, oriented x 3, equal unlabored respirations, skin warm/dry/pink. Vital Signs: 07:25 BP 135 / 96; Pulse 93; Resp 17; Temp 98.6; Pulse Ox 99% ; Weight 111.13 kg; Height 6 ll1 ft. 0 in. (182.88 cm); 07:25 Body Mass Index 33.23 (111.13 kg, 182.88 cm) ll1 ED Course: 07:19 Patient arrived in ED. as 07:20 Calos Rea is Private Physician. as 07:24 Arm band placed on. ll1 07:26 Triage completed. ll1 07:26 Patient has correct armband on for positive identification. Bed in low position. Call ll1 light in reach. Side rails up X 1. Cardiac monitoring not applicable on this patient. 07:34 Ana Hall [facility]C [facility]. kb 07:34 Shawn Anglin MD is Attending Physician. kb 07:39 Thiago Davila, MAIKOL is Primary Nurse. ll1 07:39 Inserted saline lock: 22 gauge in right antecubital area, using aseptic technique. ll1 Blood collected. 08:25 US Abdomen Limited In Process Unspecified. EDMS 09:33 CT Abd/Pelvis - IV Contrast Only In Process Unspecified. EDMS 10:01 IV discontinued, intact, bleeding controlled, No redness/swelling at site. Pressure ll1 dressing applied. 10:01 No provider procedures requiring assistance completed. ll1 Administered Medications: No medications were administered Outcome: 09:56 Discharge ordered by . kb 10:01 Patient left the ED. ll1 10:01 Discharged to home ambulatory. ll1 10:01 Condition: stable 10:01 Discharge instructions given to patient, Instructed on discharge instructions, follow up and referral plans. medication usage, Demonstrated understanding of instructions, follow-up care, medications, Prescriptions given X 1. Signatures: Dispatcher Metrigo Ana Dillon, LICENSED STAFF MFT-C LICENSED STAFF MFT-Marva Prabhakar Lynsay, RN RN ll1
--- NOTE | 2021-02-20 09:57 | EDPHYS ---
Physician Documentation [facility] Name: Angel Osborne Age: 30 yrs Sex: Male : 1990 Arrival Date: 02/20/2021 Time: :19 Bed Waiting Private MD: Calos Rea ED Physician Shawn Anglin HPI: 02/20 07:36 This 30 yrs old Male presents to ER via Ambulatory with complaints of Epigastric Pain - kb x1 wk. 07:36 The patient presents with abdominal pain in the epigastric area, in the right upper kb quadrant. Onset: The symptoms/episode began/occurred last week. The symptoms do not radiate. Associated signs and symptoms: Pertinent positives: nausea, vomiting, and diarrhea, Pertinent negatives: fever. The symptoms are described as constant. Modifying factors: The symptoms are alleviated by nothing, the symptoms are aggravated by nothing. Severity of pain: At its worst the pain was moderate in the emergency department the pain is unchanged. The patient has not experienced similar symptoms in the past. The patient has not recently seen a physician. 07:37 Pt states he has intermittent short bursts of pain to upper abd all of the time, but it kb has been worse and more frequent over the last few days. States he had nausea and vomiting for a couple of days, then diarrhea today. . Historical: - Allergies: 07:25 NKA; ll1 - PMHx: 07:25 Depression; hemorrhoids; ll1 - PSHx: 07:25 None; ll1 - Immunization history:: Client reports having NOT received the Covid vaccine. - Social history:: Smoking status: Reported history of juuling and/or vaping. ROS: 07:36 Constitutional: Negative for fever, chills, and weight loss. kb 07:36 Abdomen/GI: Positive for abdominal pain, nausea, vomiting, and diarrhea, Negative for constipation. 07:36 All other systems are negative. Exam: 07:36 Constitutional: This is a well developed, well nourished patient who is awake, alert, kb and in no acute distress. Head/Face: Normocephalic, atraumatic. ENT: Moist Mucous membranes Cardiovascular: Regular rate and rhythm with a normal S1 and S2. No gallops, murmurs, or rubs. No pulse deficits. Respiratory: Respirations even and unlabored. No increased work of breathing. Talking in full sentences Skin: Warm, dry with normal turgor. Normal color. MS/ Extremity: Pulses equal, no cyanosis. Neurovascular intact. Full, normal range of motion. Neuro: Awake and alert, GCS 15, oriented to person, place, time, and situation. Moves all extremities. Normal gait. Psych: Awake, alert, with orientation to person, place and time. Behavior, mood, and affect are within normal limits. 07:36 Abdomen/GI: Inspection: abdomen appears normal, Bowel sounds: normal, in all quadrants, Palpation: soft, in all quadrants, mild abdominal tenderness, in the epigastric area and right upper quadrant. Vital Signs: 07:25 BP 135 / 96; Pulse 93; Resp 17; Temp 98.6; Pulse Ox 99% ; Weight 111.13 kg; Height 6 ll1 ft. 0 in. (182.88 cm); 07:25 Body Mass Index 33.23 (111.13 kg, 182.88 cm) ll1 MDM: 07:34 Patient medically screened. kb 07:35 Data reviewed: vital signs, nurses notes. Data interpreted: Pulse oximetry: on room air kb is 99 %. Interpretation: normal. 09:56 Counseling: I had a detailed discussion with the patient and/or guardian regarding: the kb historical points, exam findings, and any diagnostic results supporting the discharge/admit diagnosis, lab results, radiology results, the need for outpatient follow up, a family practitioner, to return to the emergency department if symptoms worsen or persist or if there are any questions or concerns that arise at home. 02/20 07:29 Order name: Basic Metabolic Panel; Complete Time: 08:16 kb 02/20 07:29 Order name: CBC with Diff; Complete Time: 07:55 kb 02/20 07:29 Order name: Hepatic Function; Complete Time: 08:16 kb 02/20 07:29 Order name: Lipase; Complete Time: 08:16 kb 02/20 07:35 Order name: US Abdomen Limited; Complete Time: 09:14 kb 02/20 09:14 Order name: CT Abd/Pelvis - IV Contrast Only; Complete Time: 09:56 kb 02/20 07:29 Order name: IV Saline Lock; Complete Time: 07:33 kb 02/20 07:29 Order name: Labs collected and sent; Complete Time: 07:33 kb Administered Medications: No medications were administered Disposition: 12:07 Co-signature as Attending Physician, Shawn Anglin MD I agree with the assessment and rn plan of care. Attestation: The patient's history, exam findings, diagnostics, and a summary of any interventions or procedures was reviewed in detail with Ana MADRIGAL. Disposition Summary: 02/20/21 09:56 Discharge Ordered Location: Home kb Condition: Stable kb Diagnosis - Upper abdominal pain, unspecified kb - Nausea with vomiting, unspecified kb Followup: kb - With: Emergency Department - When: As needed - Reason: Worsening of condition Followup: kb - With: Private Physician - When: 2 - 3 days - Reason: Recheck today's complaints, Continuance of care, Re-evaluation by your physician Discharge Instructions: - Discharge Summary Sheet kb - Gastritis, Adult, [id number] kb - Nausea and Vomiting, Adult, [id number] kb - Abdominal Pain, Adult, [id number] kb Forms: - Medication Reconciliation Form kb - Thank You Letter kb - Antibiotic Education kb - Prescription Opioid Use kb Prescriptions: - dicyclomine 20 mg Oral Tablet - take 1 tablet by ORAL route 4 times per day As needed; 20 tablet; Refills: 0, kb Product Selection Permitted Signatures: Dispatcher [employer] EDMS Ana Hall FNP-C FNP-Shawn Foy MD MD rn Lewis, Lynsay, RN RN ll1
[2021-02-20 11:00] VITALS: BP 135/96; TEMP 98.6; O2SAT 99
== END 2021-02-20 10:01 | disposition home or self-care (01) ==
LOC: ER 07:19
DX: R10.13 Epigastric pain (principal); R11.2 Nausea with vomiting, unspecified
CPT/HCPCS: 85025; 80048; 36415; 80076; 83690; 74177; 76705; 99284; Q9967

== ENCOUNTER 2023-07-23 06:43 | Emergency (ER) | payer BC ==
--- OUTSIDE RECORDS SUMMARY | 2023-07-23 06:48 | XMS REPORT | Continuity of Care Document ---
Author Name Unknown Address [address] [facility] Jose Carlos. [address] [place] [address] [facility] thconnect Address [address] [facility] [place] [address] Care Team Providers Care Capacitor Repairer Name Role Phone Diogo BENDER, Gisella De Paz Primary Care Physician LEEANN MCCOY Attending Clinician Unavailable Nurse, [facility] Attending Clinician Un available Leeann Gomez Attending Clinician [phone] Unknown, Attending Attending Clinician Unavailab NO Guido Attending Clinician Unavailable No Nur MD Attending Clinician [phone] Kayla LIVINGSTON Attending Clinician Unavailable Darryl Owens MD Attending Clinician [phone] Kayla Scherer Attending Clinician [phone] PIPPA REYNOSO Attending Clinician Unavailable JENY HAIDER Attending Clinician Unavailable INDIA DICKEY Attending Clinician Unavailab India Small DO Attending Clinician +[phone] GISELLA LIND Attending Clinician UnaBANDAR Brooks Attending Clinician Unavailable Bandar Richardson DO Attending Clinician + LINDA SANFORD Attending Clinician Unavailab rica Sanford WALL WORKER, Linda Merritt Attending Clinician + SHAE GILLESPIE Attending Clinician Unavailable Shae Gillespie MD Attending Clinician + IVONNE SHULTZ Attending Clinician Unavailable Ivonne Shultz NP Attending Clinician + KACIE QUIROZ Attending Clinician Unavailable Doctor Unassigned, [place] Attending Clinician U HAYDEN Robertson Attending Clinician Unavailable Jose Guadalupe Meraz MD Attending Clinician [phone] Hayden Braswell MD Attending Clinician [phone] CECIL CHATMAN Attending Clinician Unavailable JOHN YIN Attending Clinician Unavailable LAB90 Attending Clinician Unavailable MARAL GAMBLE Attending Clinician Unavailab Maral Wilson DO Attending Clinician +10 KAIN RAJPUT Attending Clinician Unavailable Regulo WALL WORKERKain Jaramillo Attending Clinician + IGGY WELLER Attending Clinician UnavailIggy Hernández Attending Clinician + [phone] MIHAI HAHN Attending Clinician Unavailable HARDY ZAVALA Attending Clinician UnavailHrady Casillas MD Attending Clinician + 2011 PARVEEN Attending Clinician Unavailable Gisella Lind MD Attending Clinician + [phone] INDIA DICKEY Admitting Clinician Unavailab BANDAR Pace Admitting Clinician Unavailable IVONNE SHULTZ Admitting Clinician Unavailable HAYDEN BRASWELL Admitting Clinician Unavailable Hayden Braswell MD Admitting Clinician [phone] PARVEEN Admitting Clinician Unavailable Kayla LIVINGSTON Admitting Clinician Unavailable Payers Payer Name Policy Type Policy Number Effective Date Expirati on Date Source [facility] [id number] 1 00:00:00 [facility]-[employer] CAPIT[employer]) 9 [id number] 2023 00:00:00 Problems Condition Name Condition Details Condition Category Status Onset Date Resolution Date Last Treatment Date Treating Clinician Comments Source Chest pain Chest pain Disease Active 2022-02 00:00: 00 [facility] Obesity (BMI 30-39.9) Obesity (BMI 30-39.9) Disease Active 2022-02 00:00: 00 [facility] No known active problems No known active problems Disease [facility] Allergies, Adverse Reactions, Alerts Allergy Name Allergy Type Status Severity Reaction(s) Onset Date Inactive Date Treating Clinician Comments Source NO KNOWN ALLERGIE S Drug Class Active [facility] Social History Social Habit Start Date Stop Date Quantity Comments Source Gender identity [facility] of tobacco use Passive smoker [facility] Alcoholic beverage intake 2023-07-12 00:00:00 2023-07-12 00:00:00 Current drinker of alcohol (finding) [facility] Alcohol intake 2023-05-31 00:00:00 2023-05-31 00:00:00 Current drinker of alcohol (finding) [facility] History of Social function 2022-11-20 00:00:00 2022-11-20 00:00:00 [facility] Tobacco use and exposure 2022-11-19 00:00:00 2022-11-19 00:00:00 Smokeless tobacco non-user [facility] Tobacco Comment 2022-11-19 00:00:00 2022-11-19 00:00:00 Patient states that he uses vapes with nicotine in replace of cigarettes [facility] Alcohol Comment 2022-11-19 00:00:00 2022-11-19 00:00:00 socially (once every few months) [facility] Exposure to SARS-CoV-2 (event) 2022-02-18 00:00:00 2022-02-28 15:26:00 Not sure [facility] Sex assigned at 1990 00:00:00 1990 00:00:00 [facility] Smoking Status Start Date Stop Date Source Tobacco smoking consumption unknown [facility] Smokes tobacco daily 2022-11-19 00:00:00 [facility] Medications Ordered Medication Name Filled Medication Name Start Date Stop Date Current Medication? Ordering Clinician Indication Dosage Frequency Signature (SIG) Comments Components Source ibuprofen (IBU) tablet 800 mg 06-28 00:45: 00 06-28 00:34 :00 No 800mg 800 mg, Oral, ONCE, 1 dose, On 06/28/23 at 1945, POLA [facility] rabies immune globulin (PF) (HYPERRAB (PF)) injection 2,481 Units 06-27 23:45: 00 06-27 23:51 :00 No 20U/kg 2,481 Units (rounded from 2,480 Units = 20 Units/kg ?124 kg), Intramuscu lar, ONCE, 1 dose, On 06/28/23 at 1845, Routine [facility] mupirocin 2 % ointment 06-27 00:00: 00 Yes [id number] Apply to area(s) 3 (three) times daily. [facility] HYDROcodone -acetaminop hen (NORCO 5) 5-325 mg tablet 1 tablet 05-30 22:15: 00 05-30 22:36 :00 No 1{tbl} 1 tablet, Oral, ONCE, 1 dose, On 05/31/23 at 1715, [facility] methylPREDN ISolone 4 MG oral Tablet Therapy Pack 05-22 00:00: 00 Yes [id number] 1{lam} Take 1 pa k by mouth See Admin Instructio ns Use as directed. Joseline trejo Celecoxib (CeleBREX) 200 MG oral Capsule 05-22 00:00: 00 Yes [id number] 200mg Take 1 capsule (200 mg total) by mouth 2 times daily. Joseline trejo Trazodone HCl 150 MG oral Tablet 2-03 00:00: 00 Yes [id number] 150mg Take 1 tablet (150 mg total) by mouth nightly. Joseline trejo benzonatate 100 mg capsule 03-18 00:00: 00 Yes [id number] 100mg Take 1 capsule by mouth 3 (three) times daily as needed for Cough. [facility] azithromyci n 250 mg tablet 03-18 00:00: 00 Yes [id number] 250mg Take 1 tablet by mouth in the morning. [facility] methylPREDN ISolone (MEDROL, LAM,) 4 mg tablets 03-18 00:00: 00 Yes [id number] Take by mouth SEE-INSTRU CTIONS. follow package directions [facility] ibuprofen (IBU) tablet 600 mg 03-01 02:00: 00 03-01 01:58 :00 No 600mg 600 mg, Oral, ONCE, 1 dose, On Fri02/28/23 at 2000, POLA [facility] benzonatate 100 mg capsule 02-28 00:00: 00 Yes [id number] 100mg Take 1 capsule by mouth 3 (three) times daily as needed for Cough. [facility] Albuterol HFA 108 (90 Base) MCG/ACT IN AERS 02-28 00:00: 00 05-22 00:00 :00 No 2{puff} Q4H Inhale 2 puffs into the lungs every 4 hours as needed. Joseline trejo Nirmatrelvi r & Ritonavir STANDARD (30) (300/100) Therapy Pack 02-28 00:00: 00 05-22 00:00 :00 No 3{tbl} Take 3 tablets by mouth 2 times daily. Joseline trejo ondansetron 4 mg disintegrat ing tablet 02-28 00:00: 00 03-06 05:59 :00 No [id number] 4mg Take 1 tablet by mouth every 8 (eight) hours as needed for Nausea and Vomiting (N/V) for up to 5 days. [facility] cefTRIAXone (ROCEPHIN) injection 500 mg 2022-02 08:30: 00 Yes 500mg 500 mg, Intramuscu lar, Q24H, First dose on 01/11/23 at 0230, Until Discontinu ed, POLA
Re ason for Anti-Infec tive: Empiric Therapy for Suspected Infection< br>Empiric Therapy Site: Urine
D uration of therapy: Once (ED) [facility] acetaminoph en (TYLENOL) tablet 650 mg 2022-02 07:30: 00 01-11 07:32 :00 No 650mg 650 mg, Oral, ONCE, 1 dose, On 01/11/23 at 0130, POLA [facility] Doxycycline Hyclate 100 MG oral Capsule 2022-02 00:00: 00 05-22 00:00 :00 No 100mg Take 1 capsule (100 mg total) by mouth 2 times daily. Joseline trejo ondansetron 4 mg disintegrat ing tablet 2022-02 00:00: 00 02-28 00:00 :00 No [id number] 4mg Take 1 tablet by mouth every 8 (eight) hours as needed for Nausea and Vomiting (N/V). [facility] Pantoprazol e Sodium 40 MG oral Tablet Delayed Response 2022-02 00:00: 00 Yes [id number] 40mg TAKE 1 TABLET BY MOUTH EVERY DAY Joseline trejo sulfur hexafluorid e microsphr (LUMASON) injection 5 mL 2022-02 16:15: 00 11-20 16:15 :00 No [id number] 5mL 5 mL, Intravenou s, ONCE, 1 dose, On Fri11/20/22 at 1115, Routine
member of technical staff approving Restricted medication : HAYDEN BRASWELL [facility] pantoprazol e (PROTONIX) EC tablet 40 mg 2022-02 14:00: 00 Yes 40mg 40 mg, Oral, DAILY, First dose on Fri11/20/22 at 0900, Until Discontinu ed, Routine [facility] sennosides- docusate sodium (SENOKOT-S) 8.6-50 mg per tablet 1 tablet 2022-02 14:00: 00 Yes 1{tbl} 1 tablet, Oral, DAILY, First dose on Fri11/20/22 at 0900, Until Discontinu ed, Routine [facility] HYDROcodone -acetaminop hen (NORCO 5) 5-325 mg tablet 1 tablet 2022-02 0 03:15: 00 11-20 02:44 :00 No 1{tbl} 1 tablet, Oral, ONCE, 1 dose, On Fri11/19/22 at 2215, Routine [facility] ondansetron (ZOFRAN (PF)) injection 4 mg 2022-02 0 03:09: 48 Yes 4mg 4 mg, Slow IV Push, Q6HPRN, Nausea and Vomiting (N/V), Starting on Fri11/19/22 at 220
Do ses of ondansetro n 16 mg and above need to be administer ed via IV piggyback. For Dose >=24mg ECG monitoring is advisable.
[facility] heparin (porcine) injection 5,000 Units 2022-02 0 03:00: 00 Yes 5000U 5,000 Units, Subcutaneo us, Q8H, First dose on Fri11/19/22 at 2200, Until Discontinu ed, Routine [facility] Lidocaine (LIDOCARE) 4 % patch 1 Patch 2022-02 0 02:30: 00 11-20 14:44 :00 No 1{patch } 1 Patch, Topical, Administer over 12 Hours, ONCE, 1 dose, On Fri11/19/22 at 2130, Routine [facility] sucralfate (CARAFATE) tablet 1 g 2022-02 0 02:00: 00 Yes 1g 1 g, Oral, AC+HS, First dose on Fri11/19/22 at 2100, Until Discontinu ed, Routine [facility] acetaminoph en (TYLENOL) tablet 650 mg 2022-02 0 01:22: 59 Yes 650mg 650 mg, Oral, Q6HPRN, Starting on Fri11/19/22 at 2021, Until Discontinu ed, Routine, Pain (scale 1-3) [facility] sucralfate 1 gram tablet 2022-02 0-04 00:00: 00 12-05 04:59 :00 No [id number] 1g Take 1 tablet by mouth before meals and at bedtime for 14 days. [facility] Ondansetron (ZOFRAN) 4 MG oral TABLET DISPERSIBLE 2022-02 0-03 00:00: 00 Yes [id number] 4mg Q.[id number] 3D Take 1 tablet (4 mg total) by mouth every 8 hours as needed for nausea. Joseline trejo Pantoprazol e Sodium 40 MG oral Tablet Delayed Response 10-16 00:00: 00 Yes [id number] 40mg TAKE 1 TABLET BY MOUTH EVERY DAY Joseline trejo Metronidazo le 500 MG oral Tablet 10-15 00:00: 00 Yes [id number] 500mg Take 1 tablet (500 mg total) by mouth 2 times daily. Joseline trejo Valacyclovi r HCl (Valtrex) 500 MG oral Tablet 10-15 00:00: 00 Yes [id number] 500mg Take 1 tablet (500 mg total) by mouth 2 times daily. Joseline trejo sulfamethox azole-trime thoprim 800-160 mg per tablet 09-28 00:00: 00 10-06 04:59 :00 No [id number] 1{tbl} Take 1 tablet by mouth every 12 (twelve) hours for 7 days. [facility] ketorolac (TORADOL) injection 15 mg 09-25 14:45: 00 09-25 13:56 :00 No 15mg 15 mg, Slow IV Push, ONCE, 1 dose, On Fri09/25/22 at 0945, [facility] ondansetron (ZOFRAN (PF)) injection 4 mg 09-25 12:45: 00 09-25 12:43 :00 No 4mg 4 mg, Slow IV Push, ONCE, 1 dose, On Fri09/25/22 at 0745, [facility] maalox:diph enhydrAMINE :lidocaine 2 % viscous 1:1:1 (FIRST-MOUT HWASH BLM) oral suspension 15 mL 09-25 12:45: 00 09-25 12:42 :00 No 15mL 15 mL, Oral, ONCE, 1 dose, On Fri09/25/22 at 0745, Routine [facility] proMETHazin e 25 mg tablet 09-25 00:00: 00 11-20 00:00 :00 No [id number] 25mg Take 1 tablet by mouth every 6 (six) hours as needed for Nausea and Vomiting (N/V). [facility] pantoprazol e 40 mg EC tablet 09-06 00:00: 00 Yes 40mg Take 1 tablet by mouth. [facility] Hydrocortis one Acetate (Hemmorex-H C) 25 MG rectal Suppository 09-06 00:00: 00 05-21 00:00 :00 No [id number] 25mg Apply 1 suppositor y (25 mg total) rectally 2 times daily Joseline Bean - Externwillow trejo NIFEdipine 0.2 % in Lidocaine 5 % 60 g compounded rectal ointment 09-06 00:00: 00 05-21 00:00 :00 No [id number] Apply 1 applicatio n. rectally 2 times daily (Apply pea-sized amount to fingertip and then apply just inside anus) Joseline Landa Externa l Mupirocin (BACTROBAN) 2 % apply externally Ointment 08-04 00:00: 00 Yes Apply 1 applicatio n. topically 3 times daily Joseline Bean - Externa l mupirocin 2 % ointment 08-03 00:00: 00 Yes [id number] Apply to area(s) 3 (three) times daily. [facility] cephALEXin (KEFLEX) 500 mg capsule 08-03 00:00: 00 08-11 04:59 :00 No [id number] 500mg Take 1 capsule by mouth 4 (four) times daily for 7 days. [facility] doxycycline hyclate 100 mg capsule 6-17 00:00: 00 08-11 04:59 :00 No [id number] 100mg Take 1 capsule by mouth in the morning and 1 capsule in the evening. Do all this for 7 days. [facility] traZODone 150 mg tablet 5-12 00:00: 00 Yes 150mg Take 1 tablet by mouth. [facility] meclizine (TRAVEL-EAS E (MECLIZINE) ) tablet 25 mg - 21:15: 00 02-28 21:26 :00 No 25mg 25 mg, Oral, ONCE, 1 dose, On Fri02/28/22 at 1515, [facility] meclizine 25 mg tablet 02-28 00:00: 00 09-28 00:00 :00 No 25mg Take 1 tablet by mouth. [facility] predniSONE 20 MG oral tablet - 00:00: 00 Yes [id number] 20mg Take 1 tablet (20 mg total) by mouth daily Joseline Bean - Externa l Ondansetron HCl 4 MG oral Tablet 02-22 00:00: 00 11-19 00:00 :00 No [id number] 4mg Q.[id number] 3D Take 1 tablet (4 mg total) by mouth every 8 hours as needed for nausea Joseline Bean - Externa l Amoxicillin 500 MG oral Capsule - 00:00: 00 Yes [id number] TAKE 1 CAPSULE BY MOUTH TWICE A DAY IN THE MORNING AND EVENING FOR 10 DAYS Joseline Bean - Externa l meclizine (TRAVEL-EAS E (MECLIZINE) ) tablet 25 mg 2021-02 18:00: 00 02-13 18:02 :00 No 25mg 25 mg, Oral, ONCE, 1 dose, [facility] Fri02/13/22 at 1200[facility] 2021-02 00:00: 00 02-24 05:59 :00 No [id number] 500mg Take 1 capsule by mouth in the morning and 1 capsule in the evening. Do all this for 10 days. [facility] meclizine 25 mg tablet 2021-02 2-28 00:00: 00 02-19 05:59 :00 No [id number] 25mg Take 1 tablet by mouth 3 (three) times daily as needed for Dizziness for up to 5 days. [facility] Trazodone HCl 150 MG oral Tablet 6-16 00:00: 00 Yes 150mg Take 1 tablet (150 mg total) by mouth nightly Joseline Bean - Externa l magnesium sulfate in water 2 gram/50 mL (4 %) infusion 2 g 04-18 20:15: 00 04-18 20:18 :00 No 2g 2 g, IV Piggyback, ONCE, 1 dose, On Fri04/18/21 at 1415, Routine [facility] iopamidol (ISOVUE 370-500 mL) injection 120 mL 04-18 19:15: 00 04-18 17:55 :00 No [id number] 120mL 120 mL, Intravenou s, ONCE, 1 dose, On Fri04/18/21 at 1315, Routine [facility] Trazodone HCl 150 MG oral Tablet 03-15 14:59: 18 Yes 150mg Take 150 mg by mouth nightly Joseline Bean Immunizations Ordered Immunization Name Filled Immunization Name Date Status Comments Source Human Rabies Vaccine From Chicken Fibroblast Culture (RABAVERT) Unknown Completed [facility] TD Pres-Free Unknown Completed [facility] Human Rabies Vaccine From Chicken Fibroblast Culture (RABAVERT) Unknown Completed [facility] TD Pres-Free Unknown Completed [facility] Human Rabies Vaccine From Chicken Fibroblast Culture (RABAVERT) Unknown Completed [facility] TD Pres-Free Unknown Completed [facility] Human Rabies Vaccine From Chicken Fibroblast Culture (RABAVERT) Unknown Completed [facility] TD Pres-Free Unknown Completed [facility] Human Rabies Vaccine From Chicken Fibroblast Culture (RABAVERT) Unknown Completed [facility] TD Pres-Free Unknown Completed [facility] SARS-COV-2 COVID-19 VACCINE - (MODERNA) Unknown Completed [facility] SARS-COV-2 COVID-19 VACCINE - (MODERNA) Unknown Completed [facility] Human Rabies Vaccine From Chicken Fibroblast Culture (RABAVERT) Unknown Completed [facility] Human Rabies Vaccine From Chicken Fibroblast Culture (RABAVERT) Unknown Completed [facility] TD Pres-Free Unknown Completed [facility] SARS-COV-2 COVID-19 VACCINE - (MODERNA) Unknown Completed [facility] SARS-COV-2 COVID-19 VACCINE - (MODERNA) Unknown Completed [facility] Human Rabies Vaccine From Chicken Fibroblast Culture (RABAVERT) Unknown Completed [facility] Human Rabies Vaccine From Chicken Fibroblast Culture (RABAVERT) Unknown Completed [facility] TD Pres-Free Unknown Completed [facility] SARS-COV-2 COVID-19 VACCINE - (MODERNA) Unknown Completed [facility] SARS-COV-2 COVID-19 VACCINE - (MODERNA) Unknown Completed [facility] Human Rabies Vaccine From Chicken Fibroblast Culture (RABAVERT) Unknown Completed [facility] Human Rabies Vaccine From Chicken Fibroblast Culture (RABAVERT) Unknown Completed [facility] Vital Signs Vital Name Observation Time Observation Value Comments S ource Systolic blood pressure 2023-07-12 16:23:00 109 mm[Hg] [facility] Diastolic blood pressure 2023-07-12 16:23:00 74 mm[Hg] [facility] Heart rate 2023-07-12 16:23:00 61 /min [facility] Body temperature 2023-07-12 16:23:00 36.78 Shivani [facility] Respiratory rate 2023-07-12 16:23:00 12 /min [facility] Body weight 2023-07-12 16:23:[address] [facility] BMI 2023-07-12 16:23:00 36.75 kg/m2 [facility] Oxygen saturation in Arterial blood by Pulse oximetry 2023-07-12 16:23:00 97 /min [facility] Systolic blood pressure 2023-07-05 17:17:00 135 mm[Hg] [facility] Diastolic blood pressure 2023-07-05 17:17:00 82 mm[Hg] [facility] Heart rate 2023-07-05 17:17:00 80 /min [facility] Body temperature 2023-07-05 17:17:00 36.56 Shivani [facility] Respiratory rate 2023-07-05 17:17:00 18 /min [facility] Oxygen saturation in Arterial blood by Pulse oximetry 2023-07-05 17:17:00 100 /min [facility] Systolic blood pressure 2023-07-01 23:15:00 130 mm[Hg] [facility] Diastolic blood pressure 2023-07-01 23:15:00 87 mm[Hg] [facility] Heart rate 2023-07-01 23:15:00 83 /min [facility] Body temperature 2023-07-01 23:15:00 37.33 Shivani [facility] Respiratory rate 2023-07-01 23:15:00 14 /min [facility] Body height 2023-07-01 23:15:[address] [facility] Body weight 2023-07-01 23:15:[address] [facility] BMI 2023-07-01 23:15:00 37.03 kg/m2 [facility] Oxygen saturation in Arterial blood by Pulse oximetry 2023-07-01 23:15:00 97 /min [facility] Systolic blood pressure 2023-06-29 00:34:00 124 mm[Hg] [facility] Diastolic blood pressure 2023-06-29 00:34:00 85 mm[Hg] [facility] Heart rate 2023-06-29 00:34:00 74 /min [facility] Body temperature 2023-06-29 00:34:00 37.06 Shivani [facility] Oxygen saturation in Arterial blood by Pulse oximetry 2023-06-29 00:34:00 96 /min [facility] Respiratory rate 2023-06-28 23:48:00 14 /min [facility] Body weight 2023-06-28 22:32:[address] [facility] BMI 2023-06-28 22:32:00 37.07 kg/m2 [facility] Body height 2023-06-28 21:46:[address] [facility] Systolic blood pressure 2023-05-31 22:04:00 145 mm[Hg] [facility] Diastolic blood pressure 2023-05-31 22:04:00 85 mm[Hg] [facility] Heart rate 2023-05-31 22:04:00 84 /min [facility] Body temperature 2023-05-31 22:04:00 36.61 Shivani [facility] Respiratory rate 2023-05-31 22:04:00 16 /min [facility] Body height 2023-05-31 22:04:[address] [facility] Body weight 2023-05-31 22:04:[address] [facility] BMI 2023-05-31 22:04:00 37.03 kg/m2 [facility] Oxygen saturation in Arterial blood by Pulse oximetry 2023-05-31 22:04:00 99 /min [facility] Systolic blood pressure 2023-05-23 14:15:00 126 mm[Hg] Joseline Seybo ld - External Diastolic blood pressure 2023-05-23 14:15:00 80 mm[Hg] Joseline Seybo ld - External Heart rate 2023-05-23 14:15:00 91 /min Kelse y Seybold - External Body temperature 2023-05-23 14:15:00 36.61 Shivani Joseline Seybold - External Respiratory rate 2023-05-23 14:15:00 16 /min Joseline Seybold - External Body height 2023-05-23 14:15:00 182.9 cm Melly ey Seybold - External Body weight 2023-05-23 14:15:00 123.832 kg Melly ey Seybold - External BMI 2023-05-23 14:15:00 37.03 kg/m2 Melly ey Seybold - External Systolic blood pressure 2023-03-18 18:37:00 116 mm[Hg] [facility] Diastolic blood pressure 2023-03-18 18:37:00 80 mm[Hg] [facility] Heart rate 2023-03-18 18:37:00 87 /min [facility] Body temperature 2023-03-18 18:37:00 36.83 Shivani [facility] Respiratory rate 2023-03-18 18:37:00 18 /min [facility] Body weight 2023-03-18 18:37:00 120.203 kg [facility] BMI 2023-03-18 18:37:00 35.94 kg/m2 [facility] Oxygen saturation in Arterial blood by Pulse oximetry 2023-03-18 18:37:00 99 /min [facility] Systolic blood pressure 2023-03-01 01:45:00 141 mm[Hg] [facility] Diastolic blood pressure 2023-03-01 01:45:00 86 mm[Hg] [facility] Heart rate 2023-03-01 01:45:00 92 /min [facility] Body temperature 2023-03-01 01:45:00 37.28 Shivani [facility] Respiratory rate 2023-03-01 01:45:00 16 /min [facility] Body height 2023-03-01 01:45:[address] [facility] Body weight 2023-03-01 01:45:[address] [facility] BMI 2023-03-01 01:45:00 35.94 kg/m2 [facility] Oxygen saturation in Arterial blood by Pulse oximetry 2023-03-01 01:45:00 100 /min [facility] Systolic blood pressure 2023-01-25 10:30:00 127 mm[Hg] [facility] Diastolic blood pressure 2023-01-25 10:30:00 84 mm[Hg] [facility] Heart rate 2023-01-25 10:30:00 77 /min [facility] Body temperature 2023-01-25 10:30:00 36.67 Shivani [facility] Respiratory rate 2023-01-25 10:30:00 18 /min [facility] Body height 2023-01-25 10:30:[address] [facility] Body weight 2023-01-25 10:30:[address] [facility] BMI 2023-01-25 10:30:00 35.94 kg/m2 [facility] Oxygen saturation in Arterial blood by Pulse oximetry 2023-01-25 10:30:00 99 /min [facility] Systolic blood pressure 2023-01-11 06:54:00 120 mm[Hg] [facility] Diastolic blood pressure 2023-01-11 06:54:00 69 mm[Hg] [facility] Heart rate 2023-01-11 06:54:00 61 /min [facility] Body temperature 2023-01-11 06:54:00 36.33 Shivani [facility] Oxygen saturation in Arterial blood by Pulse oximetry 2023-01-11 06:54:00 98 /min [facility] Respiratory rate 2023-01-11 03:19:00 18 /min [facility] Body height 2023-01-11 03:19:[address] [facility] Body weight 2023-01-11 03:19:[address] [facility] BMI 2023-01-11 03:19:00 36.62 kg/m2 [facility] Systolic blood pressure 2022-12-02 13:34:00 126 mm[Hg] [facility] Diastolic blood pressure 2022-12-02 13:34:00 90 mm[Hg] [facility] [facility] 2022-12-02 13:34:00 77 /min [facility] Body temperature 2022-12-02 13:34:00 37 Shivani [facility] Respiratory rate 2022-12-02 13:34:00 18 /min [facility] Body height 2022-12-02 13:34:00 182.9 cm Univ [facility] Body weight 2022-12-02 13:34:00 120.203 kg [facility] BMI 2022-12-02 13:34:00 35.94 kg/m2 [facility] Oxygen saturation in Arterial blood by Pulse oximetry 2022-12-02 13:34:00 100 /min [facility] Body height 2022-11-20 20:00:00 182.9 cm [facility] Systolic blood pressure 2022-11-20 16:50:00 124 mm[Hg] [facility] Diastolic blood pressure 2022-11-20 16:50:00 83 mm[Hg] [facility] Heart rate 2022-11-20 16:50:00 61 /min [facility] Body temperature 2022-11-20 16:50:00 36.61 Shivani [facility] Respiratory rate 2022-11-20 16:50:00 20 /min [facility] Oxygen saturation in Arterial blood by Pulse oximetry 2022-11-20 16:50:00 98 /min [facility] Body weight 2022-11-20 01:00:[address] [facility] BMI 2022-11-20 01:00:00 36.48 kg/m2 [facility] Systolic blood pressure 2022-09-28 14:31:00 136 mm[Hg] [facility] Diastolic blood pressure 2022-09-28 14:31:00 97 mm[Hg] [facility] Heart rate 2022-09-28 14:31:00 76 [facility] Body temperature 2022-09-28 14:31:00 36.67 Shivani [facility] Respiratory rate 2022-09-28 14:31:00 18 /min [facility] Body height 2022-09-28 14:31:00 182.9 cm [facility] Body weight 2022-09-28 14:31:00 122.018 kg Univ [facility] BMI 2022-09-28 14:31:00 36.48 kg/m2 [facility] Oxygen saturation in Arterial blood by Pulse oximetry 2022-09-28 14:31:00 98 /min [facility] Systolic blood pressure 2022-09-25 14:52:21 125 mm[Hg] [facility] Diastolic blood pressure 2022-09-25 14:52:21 88 mm[Hg] [facility] Heart rate 2022-09-25 14:52:21 72 /[facility] 2022-09-25 14:52:21 36.83 Shivani [facility] Respiratory rate 2022-09-25 14:52:21 16 /min [facility] Oxygen saturation in Arterial blood by Pulse oximetry 2022-09-25 14:52:21 96 /min [facility] Body height 2022-09-25 12:10:[address] [facility] Body weight 2022-09-25 12:10:[address] [facility] BMI 2022-09-25 12:10:00 36.48 kg/m2 [facility] Systolic blood pressure 2022-09-06 18:47:00 124 mm[Hg] Joseline Seybo ld - External Diastolic blood pressure 2022-09-06 18:47:00 64 mm[Hg] Joseline Seybo ld - External Heart rate 2022-09-06 18:47:00 78 /min Kelse y Seybold - External Body temperature 2022-09-06 18:47:00 36.11 Shivani Joseline Seybold - External Respiratory rate 2022-09-06 18:47:00 16 /min Joseline Seybold - External Body height 2022-09-06 18:47:00 182.9 cm Melly ey Seybold - External Body weight 2022-09-06 18:47:00 122.653 kg Melly ey Seybold - External BMI 2022-09-06 18:47:00 36.67 kg/m2 Melly ey Seybold - External Oxygen saturation in Arterial blood by Pulse oximetry 2022-09-06 18:47:00 97 /min Joseline Seybo ld - External Heart rate 2022-08-04 01:30:00 89 /min [facility] Body temperature 2022-08-04 01:30:00 37.11 Shivani [facility] Respiratory rate 2022-08-04 01:30:00 18 /min [facility] Body height 2022-08-04 01:30:[address] [facility] Body weight 2022-08-04 01:30:[address] [facility] BMI 2022-08-04 01:30:00 34.70 kg/m2 [facility] Oxygen saturation in Arterial blood by Pulse oximetry 2022-08-04 01:30:00 100 /min [facility] Systolic blood pressure 2022-08-04 01:30:00 146 mm[Hg] [facility] Diastolic blood pressure 2022-08-04 01:30:00 105 mm[Hg] [facility] Systolic blood pressure 2022-07-12 18:18:00 118 mm[Hg] Joseline Seybo ld - External Diastolic blood pressure 2022-07-12 18:18:00 78 mm[Hg] Joseline Seybo ld - External Heart rate 2022-07-12 18:18:00 76 /min Kelse y Seybold - External Body temperature 2022-07-12 18:18:00 36.17 Shivani Joseline Seybold - External Respiratory rate 2022-07-12 18:18:00 20 /min Joseline Seybold - External Body height 2022-07-12 18:18:00 182.9 cm Melly ey Seybold - External Body weight 2022-07-12 18:18:00 118.389 kg Melly ey Seybold - External BMI 2022-07-12 18:18:00 35.40 kg/m2 Melly ey Seybold - External Oxygen saturation in Arterial blood by Pulse oximetry 2022-07-12 18:18:00 97 /min Joseline Seybo ld - External Systolic blood pressure 2022-03-04 21:25:00 110 mm[Hg] Joseline Seybo ld - External Diastolic blood pressure 2022-03-04 21:25:00 84 mm[Hg] Joseline Seybo ld - External Heart rate 2022-03-04 21:25:00 102 /min Kelse y Seybold - External Body temperature 2022-03-04 21:25:00 36.89 Shivani Joseline Seybold - External Respiratory rate 2022-03-04 21:25:00 16 /min Joseline Bean - External Body height 2022-03-04 21:25:00 182.9 cm Melly Bean - External Body weight 2022-03-04 21:25:00 106.595 kg Melly quinonez Seybold - External BMI 2022-03-04 21:25:00 31.87 kg/m2 Melly cristiano Bean - External Systolic blood pressure 2022-02-28 20:48:00 139 mm[Hg] [facility] Diastolic blood pressure 2022-02-28 20:48:00 92 mm[Hg] [facility] Heart rate 2022-02-28 20:48:00 78 /min [facility] Body temperature 2022-02-28 20:48:00 36.89 Shivani [facility] Respiratory rate 2022-02-28 20:48:00 22 /min [facility] Body height 2022-02-28 20:48:[address] [facility] Body weight 2022-02-28 20:48:[address] [facility] BMI 2022-02-28 20:48:00 31.87 kg/m2 [facility] Oxygen saturation in Arterial blood by Pulse oximetry 2022-02-28 20:48:00 99 /min [facility] Systolic blood pressure 2022-02-13 17:19:00 146 mm[Hg] [facility] Diastolic blood pressure 2022-02-13 17:19:00 85 mm[Hg] [facility] Heart rate 2022-02-13 17:19:00 90 /min [facility] Body temperature 2022-02-13 17:19:00 36.61 Shivani [facility] Respiratory rate 2022-02-13 17:19:00 16 /min [facility] Body height 2022-02-13 17:19:[address] [facility] Body weight 2022-02-13 17:19:[address] [facility] BMI 2022-02-13 17:19:00 31.87 kg/m2 [facility] Oxygen saturation in Arterial blood by Pulse oximetry 2022-02-13 17:19:00 100 /min [facility] Systolic blood pressure 2021-04-18 20:00:00 119 mm[Hg] [facility] Diastolic blood pressure 2021-04-18 20:00:00 72 mm[Hg] [facility] Heart rate 2021-04-18 20:00:00 72 /min [facility] Respiratory rate 2021-04-18 20:00:00 21 /min [facility] Oxygen saturation in Arterial blood by Pulse oximetry 2021-04-18 20:00:00 97 /min [facility] Body temperature 2021-04-18 16:29:00 36.44 Shivani [facility] Body height 2021-04-18 16:29:[address] [facility] Body weight 2021-04-18 16:29:[address] [facility] BMI 2021-04-18 16:29:00 32.28 kg/m2 [facility] Body height 2021-03-15 21:05:00 182.9 cm Melly ey ybcami Body weight 2021-03-15 21:05:00 104.327 kg Melly ey Seybold BMI 2021-03-15 21:05:00 31.19 kg/m2 Melly ey Seybold Systolic blood pressure 2021-03-15 20:55:00 118 mm[Hg] [facility] Diastolic blood pressure 2021-03-15 20:55:00 78 mm[Hg] [facility] Heart rate 2021-03-15 20:55:00 108 /min Kelse y Seybold Body temperature 2021-03-15 20:55:00 36.72 Shivani Joseline Kohlicami Oxygen saturation in Arterial blood by Pulse oximetry 2021-03-15 20:55:00 98 /min Joseline Kohlio mahendra Procedures Procedure Date / Time Performed Performing Clinician Source RABIES VACCINE, IM 2023-07-12 16:29:39 Doctor Un assigned, [place] [facility] RABIES VACCINE, 2023-07-01 23:31:31 No Nur [facility] XR KNEE 3 VW RIGHT 2023-05-31 22:39:24 Aimee Dickey [facility] ASSIGNMENT OF BENEFITS 2023-03-18 19:32:42 Docto r Unassigned, [place] [facility] CONSENT/REFUSAL FOR DIAGNOSIS AND TREATMENT 2023-03-18 18:28:03 Doctor Unassigned, [place] [facility] RAPID STREP SCREEN FOR GROUP A 2023-03-01 01:55:00 Linda Sanford [facility] RAPID INFLUENZA A/B 2023-03-01 01:55:00 Danica Linda Shaina [facility] COVID-19 (ID NOW RAPID TESTING) 2023-03-01 01:55:00 Linda Sanford Shaina [facility] CONSENT/REFUSAL FOR DIAGNOSIS AND TREATMENT 2023-03-01 01:37:40 Doctor Unassigned, [place] [facility] RAPID STREP SCREEN FOR GROUP A 2023-01-25 10:33:00 Shae Gillespie [facility] CONSENT/REFUSAL FOR DIAGNOSIS AND TREATMENT 2023-01-25 10:18:08 Doctor Unassigned, [place] [facility] US TESTICULAR TORSION 2023-01-11 06:06:00 Joey Shultz [facility] URINALYSIS 2023-01-11 04:00:[address] [facility] CONSENT/REFUSAL FOR DIAGNOSIS AND TREATMENT 2023-01-11 03:07:43 Doctor Unassigned, [place] [facility] INSURANCE CORRESPONDENCE 2022-12-10 05:01:00 Doc tor Unassigned, [place] [facility] REFERRAL- REQUEST/RESPONSE 2022-12-09 05:01:00 Doctor Unassigned, [place] [facility] CONSENT/REFUSAL FOR DIAGNOSIS AND TREATMENT 2022-12-02 13:22:20 Doctor Unassigned, [place] [facility] TRANSTHORACIC ECHO (TTE) COMPLETE W/ CONTRAST 2022-11-20 16:09:18 Lea Melendez [facility] TROPONIN I 2022-11-20 13:52:00 Chanel Melendez [facility] C-REACTIVE PROTEIN 2022-11-20 07:13:00 Lea Melendez [facility] TROPONIN I 2022-11-20 07:13:00 Chanel Melendez bondvilleyuval [facility] LIPID PANEL (52251)(TOTAL CHOLESTEROL, TRIGLYCERIDES, HDL) 2022-11-20 07:13:00 Jus Melendezmad [facility] FERRITIN SERUM 2022-11-20 02:14:00 [facility] TROPONIN I 2022-11-20 02:14:00 Chanel Melendez bondvilleyuval [facility] FREE T4 2022-11-20 02:14:00 [facility] THYRO[facility] STIMULATING HORMONE 2022-11-20 02:14:00 Tobias Melendezhammad [facility] HEPATIC FUNCTION PANEL (78026) (ALB,T.PRO,BILI T,BU/BC,ALT,AST,ALK PHOS) 2022-11-20 02:14:00 Al Tate [facility] BASIC METABOLIC PANEL (NA, K, CL, CO2, GLUCOSE, BUN, CREATININE, CA) 2022-11-20 02:14:00 Tobias Melendezhammad [facility] IRON PANEL 2022-11-20 02:14:00 [facility] SEDIMENTATION RATE 2022-11-20 02:14:00 Al Tate [facility] CBC WITH DIFF 2022-11-20 02:14:00 Al [facility] GLYCOSYLATED HEMOGLOBIN (A1C) 2022-11-20 02:14:00 Al [facility] N-TERMINAL PRO-BNP 2022-11-20 02:14:00 Al Tate [facility] XR CHEST 1 VW 2022-11-20 02:08:59 Chanel Mleendez [facility] EXTRA TUBE LT. GREEN 2022-11-20 02:05:00 Wilfredo Braswell [facility] INSURANCE CORRESPONDENCE 2022-11-02 05:01:00 Doc tor Unassigned, [place] [facility] US TESTICULAR TORSION 2022-09-28 15:35:02 Joey Shultz [facility] URINALYSIS 2022-09-28 14:52:[address] [facility] CONSENT/REFUSAL FOR DIAGNOSIS AND TREATMENT 2022-09-28 14:27:23 Doctor Unassigned, [place] [facility] LIPASE 2022-09-25 12:43:00 Maral Gamble [facility] COMP. METABOLIC PANEL (45667) 2022-09-25 12:43:00 Maral Gamble [facility] CBC WITH DIFF 2022-09-25 12:43:00 Maral Gamble [facility] CONSENT/REFUSAL FOR DIAGNOSIS AND TREATMENT 2022-09-25 12:03:13 Doctor Unassigned, [place] [facility] URINALYSIS 2022-08-04 01:52:00 Kain Raj[facility] NOTICE OF PRIVACY PRACTICES 2022-08-04 01:24:37 Doctor Unassigned, [place] [facility] CONSENT/REFUSAL FOR DIAGNOSIS AND TREATMENT 2022-08-04 01:24:12 Doctor Unassigned, [place] [facility] CONSENT/REFUSAL FOR DIAGNOSIS AND TREATMENT 2022-02-28 20:35:39 Doctor Unassigned, [place] [facility] RAPID STREP SCREEN FOR GROUP A 2022-02-13 18:03:00 Hardy Zavala [facility] RAPID INFLUENZA A/B 2022-02-13 18:03:00 Dinesh Zavala [facility] COVID-19 (ID NOW RAPID TESTING) 2022-02-13 18:03:00 Hardy Zavala [facility] CONSENT/REFUSAL FOR DIAGNOSIS AND TREATMENT 2022-02-13 17:16:02 Doctor Unassigned, [place] [facility] CT ABDOMEN PELVIS W CONTRAST 2021-04-18 18:02:33 Kayla Livingston [facility] LIPASE 2021-04-18 17:19:00 Kayla Livingston [facility] MAGNESIUM 2021-04-18 17:19:00 Kayla Livingston [facility] COMP. METABOLIC PANEL ([id number]) 2021-04-18 17:19:00 Kayla Livingston [facility] CBC WITH DIFF 2021-04-18 17:19:00 [facility] 2021-04-18 17:19:00 Kayla Livingston [facility] NOTICE OF PRIVACY PRACTICES 2021-04-18 16:02:42 Doctor Unassigned, [place] [facility] Encounters Start Date/Time End Date/Time Encounter Type Admission Type Attending [facility] Care Facility Care Department Encounter ID Source 2023-07-12 11:15:00 2023-07-12 11:40:51 Outpatient R MICHAELJOSE D [facility] [id number] [facility] 2023-07-12 11:15:00 2023-07-12 11:35:00 [facility] E[facility], [facility] 1.2.840.114 350.1.13.10 4.2.7.2.686 [id number] [facility] 2023-07-05 12:00:00 2023-07-05 12:57:22 Outpatient R NADINE [facility] [id number] [facility] 2023-07-05 12:00:00 2023-07-05 12:20:00 Nurse Visit [facility] Unknown, Attending [facility] 1.2.840.114 350.1.13.10 4.2.7.2.686 [id number] [facility] 2023-07-01 18:00:00 2023-07-01 18:54:27 Outpatient NO [facility] [id number] [facility] 2023-07-01 18:00:00 2023-07-01 18:20:00 Urgent Care No Nur Unknown, [facility] 1.2.840.114 350.1.13.10 4.2.7.2.686 [id number] [facility] 2023-06-28 16:49:00 2023-06-28 20:22:00 Emergency X Kayla LIVINGSTON [facility] ERT [id number] [facility] 2023-06-28 16:49:00 2023-06-28 20:22:00 Emergency Darryl Owens K Paige [facility] 1.2.840.114 350.1.13.10 4.2.7.2.686 [id number] [facility] 2023-06-23 00:00:00 2023-06-23 00:00:00 Outpatient JOSELINE GOLDBERG [id number] [facility] 2023-06-23 00:00:00 2023-06-23 00:00:00 Outpatient JOSELINE GOLDBERG [id number] [facility] 2023-06-16 00:00:00 2023-06-16 00:00:00 Outpatient PIPPA REYNOSO [id number] [facility] 2023-06-15 00:00:00 2023-06-15 00:00:00 Outpatient PIPPA REYNOSO [id number] [facility]eline [facility] 2023-06-13 13:45:00 2023-06-13 13:45:00 Outpatient JENY HAIDER [id number] [facility] 2023-06-05 00:00:00 2023-06-05 00:00:00 Outpatient JENY HAIDER [id number] [facility]eline [facility] 2023-06-02 00:00:00 2023-06-02 00:00:00 Outpatient DENI REYNOSOLucinda GOLDBERG [id number] [facility] Bean 2023-06-02 00:00:00 2023-06-02 00:00:00 Outpatient JOSELINE GOLDBERG [id number] Joseline Bean 2023-06-02 00:00:00 2023-06-02 00:00:00 Outpatient EDGARDO PIPPA GOLDBERG [id number] [facility] 2023-05-31 17:06:00 2023-05-31 18:29:00 Emergency X INDIA DICKEY [facility] ERT [id number] [facility] 2023-05-31 17:06:00 2023-05-31 18:29:00 Emergency Milton India Doss [facility] 1.2.840.114 350.1.13.10 4.2.7.2.686 [id number] [facility] 2023-05-28 00:00:00 2023-05-28 00:00:00 Outpatient DENI REYNOSOLucinda GOLDBERG [id number] [facility] 2023-05-28 00:00:00 2023-05-28 00:00:00 Outpatient DENI REYNOSOLucinda GOLDBERG [id number] [facility] 2023-05-28 00:00:00 2023-05-28 00:00:00 Outpatient EDGARDO PIPPA GOLDBERG [id number] [facility] 2023-05-23 09:30:00 2023-05-23 09:30:00 Outpatient EDGARDO PIPPA GOLDBERG [id number] [facility] 2023-05-23 00:00:00 2023-05-23 00:00:00 Outpatient SAVANAHDarling PIPPA GOLDBERG [id number] [facility] 2023-03-25 00:00:00 2023-03-25 00:00:00 Outpatient GISELLA LIND [id number] [facility] 2023-03-25 00:00:00 2023-03-25 00:00:00 Outpatient GISELLA LIND JOSELINE [id number] [facility] 2023-03-25 00:00:00 2023-03-25 00:00:00 Outpatient JOSELINE JOSELINE [id number] [facility] 2023-03-19 00:00:00 2023-03-19 00:00:00 Outpatient GISELLA LIND JOSELIEN JOSELINE [id number] [facility] 2023-03-18 12:37:00 2023-03-18 13:38:00 Emergency X BANDAR RICHARDSON [facility] ERT [id number] [facility] 2023-03-18 12:37:00 2023-03-18 13:38:00 Emergency Bandar Richardson [facility] 1.2.840.114 350.1.13.10 4.2.7.2.686 [id number] [facility] 2023-02-28 19:47:00 2023-02-28 21:02:00 Emergency X LINDA SANFORD [facility] ERT [id number] [facility] 2023-02-28 19:47:00 2023-02-28 21:02:00 Emergency Linda Sanford [facility] 1.2.840.114 350.1.13.10 4.2.7.2.686 [id number] [facility] 2023-02-13 00:00:00 2023-02-13 00:00:00 Outpatient JOSELINE JOSELINE [id number] [facility] 2023-01-25 04:35:00 2023-01-25 06:05:00 Emergency X SHAE GILLESPIE [facility] ERT [id number] [facility] 2023-01-25 04:35:00 2023-01-25 06:05:00 Emergency Shae Gillespie Ryan [facility] 1.2.840.114 350.1.13.10 4.2.7.2.686 [id number] [facility] 2023-01-10 21:21:00 2023-01-11 01:38:00 Emergency X IVONNE SHULTZ [facility] ERT [id number] [facility] 2023-01-10 21:21:00 2023-01-11 01:38:00 Emergency Ivonne Shultz [facility] 1..840.114 350.1.13.10 4.2.7.2.686 [id number] [facility] 2022-12-25 09:15:00 2022-12-25 09:15:00 Outpatient KACIE QUIROZ [id number] [facility] 2022-12-10 00:00:00 2022-12-10 00:00:00 Orders Only Doctor Unassigned, [place] [facility] 1.840.114 350.1.13.10 4.2.7.2.686 [id number] [facility] 2022-12-09 00:00:00 2022-12-09 00:00:00 Orders Only Doctor Unassigned, [place] [facility] 1.2840.114 350.1.13.10 4.2.7.2.686 [id number] [facility] 2022-12-04 00:00:00 2022-12-04 00:00:00 Outpatient JOSELINE GOLDBERG [id number] [facility] 2022-12-03 00:00:00 2022-12-03 00:00:00 Outpatient GISELLA LIND [id number] [facility] 2022-12-02 08:34:00 2022-12-02 10:08:00 Emergency X Kayla LIV[place]ST[place] [facility] ERT [id number] [facility] 2022-12-02 08:34:00 2022-12-02 10:08:00 Emergency Kayla Livingston [facility] 1.2.840.114 350.1.13.10 4.2.7.2.686 [id number] [facility] 2022-11-23 00:00:00 2022-11-23 00:00:00 Outpatient PIPPA REYNOSO JOSELINE GOLDBERG [id number] Joseline [facility] 2022-11-21 00:00:00 2022-11-21 00:00:00 Outpatient JOSELINE GOLDBERG [id number] [facility] 2022-11-19 19:34:00 2022-11-20 16:45:00 Outpatient HAYDEN [facility]KE [facility] [id number] [facility] 2022-11-19 19:34:00 2022-11-20 16:45:00 Hospital Encounter Jose Guadalupe Meraz [facility] 1.2.840.114 350.1.13.10 4.2.7.2.686 [id number] [facility] 2022-11-20 13:00:00 2022-11-20 13:00:00 Outpatient KACIE QUIROZ JOSELINE GOLDBERG [id number] [facility] 2022-11-19 11:30:00 2022-11-19 11:30:00 Outpatient CECIL CHATMAN JOSELINE GOLDBERG [id number] [facility] 2022-11-19 00:00:00 2022-11-19 00:00:00 Outpatient EDGARDO PIPPA JOSELINE GOLDBERG [id number] [facility] 2022-11-02 00:00:00 2022-11-02 00:00:00 Outpatient JOSELINE GOLDBERG [id number] Joseline [facility] 2022-11-02 00:00:00 2022-11-02 00:00:00 Orders Only Doctor Unassigned, [place] [facility] 1..840.114 350.1.13.10 4.2.7.2.686 [id number] [facility] 2022-11-01 00:00:00 2022-11-01 00:00:00 Outpatient JOSELINE GOLDBERG [id number] Joseline Seybcami 2022-10-22 00:00:00 2022-10-22 00:00:00 Outpatient PIPPA REYNOSO JOSELINE GOLDBERG [id number] Joseline Sey[facility] 2022-10-22 00:00:00 2022-10-22 00:00:00 Outpatient JOSELINE GOLDBERG [id number] Joseline ybcami 2022-10-18 00:00:00 2022-10-18 00:00:00 Outpatient JOSELINE GOLDBERG [id number] Joseline Seybcami 2022-10-16 00:00:00 2022-10-16 00:00:00 Outpatient PIPPA REYNOSO JOSELINE GOLDBERG [id number] Joseline ybcami 2022-10-15 00:00:00 2022-10-15 00:00:00 Outpatient JOHN YIN JOSELINE GOLDBERG [id number] [facility] 2022-10-15 00:00:00 2022-10-15 00:00:00 Outpatient JOHN YIN JOSELINE GOLDBERG [id number] [facility] 2022-10-11 08:00:00 2022-10-11 08:00:00 Outpatient LAB90 JOSELINE GOLDBERG [id number] [facility] 2022-10-11 00:00:00 2022-10-11 00:00:00 Outpatient PIPPA REYNOSO JOSELINE GOLDBERG [id number] [facility] 2022-10-08 00:00:00 2022-10-08 00:00:00 Outpatient PIPPA REYNOSO JOSELINE GOLDBERG [id number] [facility] 2022-10-07 00:00:00 2022-10-07 00:00:00 Outpatient JOSELINE GOLDBERG [id number] Joseline Seybold 2022-10-07 00:00:00 2022-10-07 00:00:00 Outpatient JOSELINE GOLDBERG [id number] [facility] 2022-10-02 00:00:00 2022-10-02 00:00:00 Outpatient EDGARDO PIPPA JOSELINE GOLDBERG [id number] Joseline [facility] 2022-09-28 09:34:00 2022-09-28 11:04:00 Emergency X IVONNE SHULTZ [facility] ERT [id number] [facility] 2022-09-28 09:34:00 2022-09-28 11:04:00 Emergency Ivonne Shultz [facility] [id number] [facility] 2022-09-28 00:00:00 2022-09-28 00:00:00 Outpatient PIPPA REYNOSO [id number] Joseline [facility] 2022-09-25 07:15:00 2022-09-25 09:59:00 Emergency X MARAL GAMBLE [facility] ERT [id number] [facility] 2022-09-25 07:15:00 2022-09-25 09:59:00 Emergency Tye [facility] [id number] [facility] 2022-09-11 00:00:00 2022-09-11 00:00:00 Outpatient PIPPA REYNOSO [id number] Joseline [facility] 2022-09-06 14:45:00 2022-09-06 14:45:00 Outpatient LAB90 JOSELINE GOLDBERG [id number] Joseline [facility] 2022-09-06 14:00:00 2022-09-06 14:00:00 Outpatient PIPPA REYNOSO [id number] Joseline [facility] 2022-09-06 00:00:00 2022-09-06 00:00:00 Outpatient JOSELINE GOLDBERG [id number] Joseline anoop 2022-08-12 00:00:00 2022-08-12 00:00:00 Outpatient JOHN YIN [id number] Joseline [facility] 2022-08-12 00:00:00 2022-08-12 00:00:00 Outpatient JOSELINE GOLDBERG [id number] [facility] 2022-08-03 20:31:00 2022-08-03 21:56:00 Emergency X KAIN RAJPUT [facility] ERT [id number] [facility] 2022-08-03 20:31:00 2022-08-03 21:56:00 Emergency Kain Rajput [facility] 1.2.840.114 350.1.13.10 4.2.7.2.686 [id number] [facility] 2022-07-19 11:30:00 2022-07-19 11:30:00 Outpatient JOHN YIN [id number] [facility] 2022-07-12 14:00:00 2022-07-12 14:00:00 Outpatient GISELLA LIND [id number] [facility] 2022-07-12 14:00:00 2022-07-12 14:00:00 Outpatient GISELLA LIND [id number] [facility] 2022-07-10 00:00:00 2022-07-10 00:00:00 Outpatient JOHN YIN [id number] [facility] 2022-06-28 00:00:00 2022-06-28 00:00:00 Outpatient GISELLA LIND [id number] [facility] 2022-06-28 00:00:00 2022-06-28 00:00:00 Outpatient GISELLA LIND [id number] [facility] 2022-03-04 15:30:00 2022-03-04 15:30:00 Outpatient GISELLA LIND [id number] [facility] 2022-02-28 14:49:00 2022-02-28 15:41:00 Emergency X IGGY WELLER [facility] ERT [id number] [facility] 2022-02-28 14:49:00 2022-02-28 15:41:00 Emergency [place] steward [facility] 1.2.840.114 350.1.13.10 4.2.7.2.686 [id number] [facility] 2022-02-28 00:00:00 2022-02-28 00:00:00 Outpatient JOHN YIN JOSELINE GOLDBERG [id number] [facility] 2022-02-28 00:00:00 2022-02-28 00:00:00 Outpatient JOSELINE GOLDBERG [id number] [facility] 2022-02-22 15:15:00 2022-02-22 15:15:00 Outpatient MIHAI HAHN JOSELINE GOLDBERG [id number] [facility] 2022-02-13 11:20:00 2022-02-13 12:52:00 Emergency X HARDY ZAVALA [facility] ERT [id number] [facility] 2022-02-13 11:20:00 2022-02-13 12:52:00 Emergency Hardy Zavala A [facility] 1.2.840.114 350.1.13.10 4.2.7.2.686 [id number] [facility] 2022-02-13 00:00:00 2022-02-13 00:00:00 Outpatient GISELLA LIND [id number] [facility] 2022-02-13 00:00:00 2022-02-13 00:00:00 Orders Only Doctor Unassigned, [place] [facility] 1.2.840.114 350.1.13.10 4.2.7.2.686 [id number] [facility] 2021-11-05 00:00:00 2021-11-05 00:00:00 Outpatient GISELLA LIND [id number] [facility] 2021-08-31 03:15:00 2021-08-31 03:15:00 Outpatient HANH HUERTAS [facility] [id number] Satish brambila [facility] 2021-06-25 00:00:00 2021-06-25 00:00:00 Outpatient GISELLA LIND JOSELINE GOLDBERG [id number] [facility] 2021-06-15 00:00:00 2021-06-15 00:00:00 Outpatient GISELLA LIND JOSELINE GOLDBERG [id number] [facility] 2021-04-18 10:30:00 2021-04-18 14:28:00 Emergency X YARA Kayla [facility] ERT [id number] [facility] 2021-04-18 10:30:00 2021-04-18 14:28:00 Emergency Yara Kayla Quirosge [facility] 1.2.840.114 350.1.13.10 4.2.7.2.686 [id number] [facility] 2021-04-18 00:00:00 2021-04-18 00:00:00 Outpatient GISELLA LIND JOSELINE GOLDBERG [id number] [facility] 2021-03-28 00:00:00 2021-03-28 00:00:00 Outpatient GISELLA LIND JOSELINE GOLDBERG [id number] [facility] 2021-03-28 00:00:00 2021-03-28 00:00:00 Outpatient JOSELINE GOLDBERG [id number] [facility] 2021-03-28 00:00:00 2021-03-28 00:00:00 Outpatient JOSELINE GOLDBERG [id number] [facility] 2021-03-16 10:20:00 2021-03-16 10:20:00 Outpatient LAB90 JOSELINE GOLDBERG [id number] [facility] 2021-03-16 09:35:00 2021-03-16 09:35:00 Outpatient LAB90 JOSELINE GOLDBERG [id number] [facility] 2021-03-15 15:15:00 2021-03-15 15:45:00 Office Visit AgencyGisella geronimo Zandra Thibodeaux [facility] 1.2.840.114 350.1.13.13 1.2.7.2.686 [id number] Joselinemalissa [facility] 2021-03-15 00:00:00 2021-03-15 00:00:00 Outpatient DIOGOGISELLA GERONIMO JOSELINE GOLDBERG [id number] Joseline anoop 2021-03-15 00:00:00 2021-03-15 00:00:00 Outpatient GISELLA LIND JOSELINE GOLDBERG [id number] [facility] Results Test Description Test Time Test Comments Results Resul t Comments Source XR KNEE 3 VW RIGHT 2023-05-19 3 22:42:42 XR KNEE 3 VW RIGHT HISTORY: ?right knee pain COMPARISON: ?none available. Findings:The osseous structures are intact. Tricompartmental mild osteoarthrosis.Small knee joint effusion.Mild soft tissue edema. ?No abnormal soft tissue calcification. [facility] (A1C)2022-11-20 10:43:53* Test Item Value Reference Range Interpretation Comme nts HGB A1C (test code = 4548-4) 5.7 % 4.0-5.7 JAY (test code = JAY) Reference RangesNormal: <5.7%Prediabetes: 5.7 - 6.4%Diabetes: > 6.5% Lab Interpretation (test code = 51013-2) [facility] [id number] 06:15:25* Test Item Value Reference Range Interpretation Comme nts FERRITIN (test code = 5110373624) 36.6 ng/mL 18.0-464.0 JAY (test code = JAY) Biotin has been reported to cause a negative bias, interpret results relative to patient's use of biotin. Lab Interpretation (test code = 42260-1) Normal [facility] HospitalIR[facility] [id number] 05:48:00* Test Item Value Reference Range Interpretation Comme nts IRON (test code = 9954614124) 109 ug/dL 50-160 TIBC (test code = 3244067165) 387 ug/dL 250-410 % FE SAT (test code = 9704980661) 28 % 20-50 Lab Interpretation (test cod e = 44372-7) [facility]FREE [id number] 05:10:55* Test Item Value Reference Range Interpretation Comme nts FREE T4 (test code = 5337309286) 1.12 See_Comment [Automated [employer]] The system which generated this result transmitted reference range: 0.78 - 2.20 ng/dL:. The reference range was not used to interpret this result as normal/abnormal. Lab Interpretation (test code = 06468-8) Normal [facility] HospitalSED[facility]ENTATION [id number] 04:03:25* Test Item Value Reference Range Interpretation Comme nts ESR (test code = 97887-9) 2 See_Comment [Automated message] The system which generated this result transmitted reference range: 2 - 30 mm/HR. The reference range was not used to interpret this result as normal/abnormal. Lab Interpretation (test code = 10069-9) Normal [facility] HospitalN-[facility]MINAL [id number] 03:50:48* Test Item Value Reference Range Interpretation Comme nts NT-proBNP (test code = 32298-3) <=125 Lab Interpretation (test cod e = 85780-2) Normal [facility] HospitalTHYROID STIMULATING [id number] 03:15:04 * Test Item Value Reference Range Interpretation Comme nts TSH (test code = 1221348409) 8.65 See_Comment H [[employer]] The system which generated this result transmitted reference range: 0.45 - 4.70 mIU/L. The reference range was not used to interpret this result as normal/abnormal. Lab Interpretation (test code = 28034-5) Abnormal [facility] HospitalTROP[facility]IN [id number] 02:56:39* Test Item Value Reference Range Interpretation Comme nts TROPONIN I (test code = 2161077520) 0.002 ng/mL <=0.034 JAY (test code = JAY) Reference (Normal) Range (defined by the 99th percentile reference limit): <= 0.034 ng/mL Note: Cardiac troponin begins to rise 3-4 hours after the onset of ischemia. Repeat in 4-6 hours if the sample was drawn within 3-4 hours of the onset of the symptom and found normal. Diagnosis of myocardial injury is made with acute changes in cTn concentrations with at least one serial sample above the 99th percentile upper reference limit (URL), taken together with the patient's clinical presentation. Biotin has been reported to cause a negative bias, interpret results relative to patient's use of biotin. Lab Interpretation (test code = 87797-0) Normal [facility] METABOLIC PANEL (NA, K, CL, CO2, GLUCOSE, BUN, CREATININE, CA)2022-11-20 02:40:39* Test Item Value Reference Range Interpretation Comme nts NA (test code = 6432383480) 135 mmol/L 135-145 K (test code = 0092387981) 4.1 mmol/L 3.5-5.0 CL (test code = 1785171530) 104 mmol/L 98-108 CO2 TOTAL (test code = 8835343091) 23 mmol/L 23-31 AGAP (test code = 2860253295) 8 2-16 BUN (test code = 5848781793) 14 mg/dL 7-23 GLUCOSE (test code = 7673086586) 100 mg/dL 70-110 CREATININE (test code = 7237952173) 0.67 mg/dL 0.60-1.25 CALCIUM (test code = 0257874952) 9.0 mg/dL 8.6-10.6 eGFR (test code = 6230067665) 139.3 mL/min/1.73m2 JAY (test code = JAY) Association of Glomerular Filtration Rate (GFR) and Staging of Kidney Disease* + + +- +| GFR (mL/min/1.73 m2) ?| With Kidney Damage ?| ?Without Kidney Damage+ ------+ ----+ ------+| ?>90 ?| ?Stage one ?| ? Normal ?+ -+ + -+| ?60-89 ?| ?Stage two ?| ? Decreased GFR ? + + +- +| ?30-59 ?| ?Stage three ?| ? Stage three ? + + +- +| ?15-29 ?| ?Stage four ? | ? Stage four ?+ -+ + -+| ?<15 (or dialysis) ? ?| ?Stage five ? | ? Stage five ?+ -+ + -+ *Each stage assumes the associated GFR level has been in effect for at least three months. ?Stages 1 to 5, with or without kidney disease, indicate chronic kidney disease. Notes: Determination of stages one and two (with eGFR >59mL/min/1.73 m2) requires estimation of kidney damage for at least three months as defined by structural or functional abnormalities of the kidney, manifested by either:Pathological abnormalities or Markers of kidney damage (including abnormalities in the composition of the blood or urine or abnormalities in imaging tests). [facility] HospitalHEPAT[facility]CTION PAN[facility] (67242) (ALB,T.PRO,BILI T,BU/BC,ALT,AST,ALK PHOS)2022-11-20 02:40:39* Test Item Value Reference Range Interpretation Comme nts TOTAL BILI (test code = 1336672111) 0.4 mg/dL 0.1-1.1 BILI UNCON (test code = 7467647774) 0.4 mg/dL 0.1-1.1 BILI CONJ (test code = 0143061793) 0.0 mg/dL 0.0-0.3 T PROTEIN (test code = 4831749350) 7.3 g/dL 6.3-8.2 ALBUMIN (test code = 0105870612) 4.6 g/dL 3.5-5.0 ALK PHOS (test code = 1237661948) 42 U/L 34-122 ALTv (test code = 1742-6) 86 U/L 5-50 H AST(SGOT) (test code = 2659395130) 41 U/L 13-40 H Lab Interpretation (test cod e = 67140-4) Abnormal [facility] WITH [id number] 02:33:58* Test Item Value Reference Range Interpretation Comme nts WBC (test code = 6690-2) 9.15 See_Comment [[employer] [facility]] The system which generated this result transmitted reference range: 4.20 - 10.70 10*3/?L. The reference range was not used to interpret this result as normal/abnormal. RBC (test code = 789-8) 5.12 See_Comment [[employer] [facility]] The system which generated this result transmitted reference range: 4.26 - 5.52 10*6/?L. The reference range was not used to interpret this result as normal/abnormal. HGB (test code = 718-7) 15.5 g/dL 12.2-16.4 HCT (test code = 4544-3) 44.2 % 38.4-49.3 MCV (test code = 787-2) 86.3 fL 81.7-95.6 MCH (test code = 785-6) 30.3 pg 26.1-32.7 MCHC (test code = 786-4) 35.1 g/dL 31.2-35.0 H RDW-SD (test code = 14005-1) 39.2 fL 38.5-51.6 RDW-CV (test code = 788-0) 12.5 % 12.1-15.4 PLT (test code = 777-3) 220 See_Comment [Automated [employer] ge] The system which generated this result transmitted reference range: 150 - 328 10*3/?L. The reference range was not used to interpret this result as normal/abnormal. MPV (test code = 76352-9) 11.8 fL 9.8-13.0 NRBC/100 WBC (test code = 3690297882) 0.0 See_Comment [Automated Chat& ([employer]And) ssage] The system which generated this result transmitted reference range: 0.0 - 10.0 /100 WBCs. The reference range was not used to interpret this result as normal/abnormal. NRBC x10^3 (test code = 0709086310) See_Comment [Automated [employer] ge] The system which generated this result transmitted reference range: 10*3/?L. The reference range was not used to interpret this result as normal/abnormal. GRAN MAT (NEUT) % (test code = 770-8) 68.5 % IMM GRAN % (test code = 8363971762) 0.30 % LYMPH % (test code = 736-9) 20.9 % MONO % (test code = 5905-5) 7.5 % EOS % (test code = 713-8) 2.3 % BASO % (test code = 706-2) 0.5 % GRAN MAT x10^3(ANC) (test code = 6938785115) 6.26 10*3/uL 1.99-6.95 IMM GRAN x10^3 (test code = 9887689957) 0.03 10*3/uL 0.00-0.06 LYMPH x10^3 (test code = 731-0) 1.91 10*3/uL 1.09-3.23 MONO x10^3 (test code = 742-7) 0.69 10*3/uL 0.36-1.02 EOS x10^3 (test code = 711-2) 0.21 10*3/uL 0.06-0.53 BASO x10^3 (test code = 704-7) 0.05 10*3/uL 0.01-0.09 Lab Interpretation (test code = 30614-3) Abnormal [facility]. METABOLIC PANEL (16400)2022-09-25 13:24:42* Test Item Value Reference Range Interpretation Comme nts NA (test code = 5968382546) 138 mmol/L 135-145 K (test code = 5453975499) 3.7 mmol/L 3.5-5.0 CL (test code = 5421578879) 102 mmol/L 98-108 CO2 TOTAL (test code = 3786533946) 25 mmol/L 23-31 AGAP (test code = 6105984532) 11 2-16 BUN (test code = 3032088389) 15 mg/dL 7-23 GLUCOSE (test code = 5512104477) 119 mg/dL 70-110 H CREATININE (test code = 6226663801) 0.80 mg/dL 0.60-1.25 TOTAL BILI (test code = 7024096382) 0.5 mg/dL 0.1-1.1 CALCIUM (test code = 3690729387) 8.7 mg/dL 8.6-10.6 T PROTEIN (test code = 2465095619) 7.8 g/dL 6.3-8.2 ALBUMIN (test code = 8761729366) 4.5 g/dL 3.5-5.0 ALK PHOS (test code = 8786522366) 45 U/L 34-122 ALTv (test code = 1742-6) 82 U/L 5-50 H AST(SGOT) (test code = 6082491289) 44 U/L 13-40 H eGFR (test code = 3047265695) 113.5 mL/min/1.73m2 JAY (test code = JAY) Association of Glomerular Filtration Rate (GFR) and Staging of Kidney Disease* + --+ --+ ------+| GFR (mL/min/1.73 m2) ?| With Kidney Damage ?| ?Without Kidney Damage+ --------+ --------+ +| ?>90 ?| ?Stage one ?| ? Normal ?+ ---+ ---+ -------+| ?60-89 ?| ?Stage two ?| ? Decreased GFR ? + --+ --+ ------+| ?30-59 ?| ?Stage three ?| ? Stage three ? + --+ --+ ------+| ?15-29 ?| ?Stage four ? | ? Stage four ?+ ---+ ---+ -------+| ?<15 (or dialysis) ? ?| ?Stage five ? | ? Stage five ?+ ---+ ---+ -------+ *Each stage assumes the associated GFR level has been in effect for at least three months. ?Stages 1 to 5, with or without kidney disease, indicate chronic kidney disease. Notes: Determination of stages one and two (with eGFR >59mL/min/1.73 m2) requires estimation of kidney damage for at least three months as defined by structural or functional abnormalities of the kidney, manifested by either:Pathological abnormalities or Markers of kidney damage (including abnormalities in the composition of the blood or urine or abnormalities in imaging tests). Lab Interpretation (test code = 58952-8) [facility] 13:24:02* Test Item Value Reference Range Interpretation Comme nts LIPASE (test code = 2229121948) 290 U/L 0-220 H Lab Interpretation (test cod e = 71843-0) [facility] WITH [id number] 13:10:59* Test Item Value Reference Range Interpretation Comme nts WBC (test code = 6690-2) 8.31 See_Comment [[employer]] The system which generated this result transmitted reference range: 4.20 - 10.70 10*3/?L. The reference range was not used to interpret this result as normal/abnormal. RBC (test code = 789-8) 5.34 See_Comment [[employer] [facility]] The system which generated this result transmitted reference range: 4.26 - 5.52 10*6/?L. The reference range was not used to interpret this result as normal/abnormal. HGB (test code = 718-7) 16.1 g/dL 12.2-16.4 HCT (test code = 4544-3) 45.7 % 38.4-49.3 MCV (test code = 787-2) 85.6 fL 81.7-95.6 MCH (test code = 785-6) 30.1 pg 26.1-32.7 MCHC (test code = 786-4) 35.2 g/dL 31.2-35.0 H RDW-SD (test code = 48616-6) 38.1 fL 38.5-51.6 L RDW-CV (test code = 788-0) 12.4 % 12.1-15.4 PLT (test code = 777-3) 202 See_Comment [Automated messa ge] The system which generated this result transmitted reference range: 150 - 328 10*3/?L. The reference range was not used to interpret this result as normal/abnormal. MPV (test code = 79026-2) 11.9 fL 9.8-13.0 NRBC/100 WBC (test code = 6304966058) 0.0 See_Comment [Automated Chat& ([employer]) ssage] The system which generated this result transmitted reference range: 0.0 - 10.0 /100 WBCs. The reference range was not used to interpret this result as normal/abnormal. NRBC x10^3 (test code = 5321179651) See_Comment [Automated [employer]] The system which generated this result transmitted reference range: 10*3/?L. The reference range was not used to interpret this result as normal/abnormal. GRAN MAT (NEUT) % (test code = 770-8) 70.7 % IMM GRAN % (test code = 7173886759) 0.80 % LYMPH % (test code = 736-9) 18.4 % MONO % (test code = 5905-5) 7.0 % EOS % (test code = 713-8) 2.6 % BASO % (test code = 706-2) 0.5 % GRAN MAT x10^3(ANC) (test code = 7753122551) 5.87 10*3/uL 1.99-6.95 IMM GRAN x10^3 (test code = 6268632010) 0.07 10*3/uL 0.00-0.06 H LYMPH x10^3 (test code = 731-0) 1.53 10*3/uL 1.09-3.23 MONO x10^3 (test code = 742-7) 0.58 10*3/uL 0.36-1.02 EOS x10^3 (test code = 711-2) 0.22 10*3/uL 0.06-0.53 BASO x10^3 (test code = 704-7) 0.04 10*3/uL 0.01-0.09 Lab Interpretation (test code = 21424-1) [facility] 18:18:55* Test Item Value Reference Range Interpretation Comme nts MAGNESIUM (test code = 8687172639) 1.6 mg/dL 1.7-2.4 L Lab Interpretation (test cod e = 53595-0) [facility] METABOLIC PANEL (68379)2021-04-18 18:18:35* Test Item Value Reference Range Interpretation Comme nts NA (test code = 8677073746) 136 mmol/L 135-145 K (test code = 4488602123) 4.6 mmol/L 3.5-5.0 CL (test code = 4199705299) 102 mmol/L 98-108 CO2 TOTAL (test code = 3422285055) 24 mmol/L 23-31 AGAP (test code = 9608629053) 2-16 BUN (test code = 9400024344) 12 mg/dL 7-23 GLUCOSE (test code = 6481541870) 95 mg/dL 70-110 CREATININE (test code = 0809268011) 0.78 mg/dL 0.60-1.25 TOTAL BILI (test code = 3254485247) 0.6 mg/dL 0.1-1.1 CALCIUM (test code = 3000595863) 9.3 mg/dL 8.6-10.6 T PROTEIN (test code = 8485189688) 7.1 g/dL 6.3-8.2 ALBUMIN (test code = 0580535879) 4.6 g/dL 3.5-5.0 ALK PHOS (test code = 3647960191) 54 U/L 34-122 ALTv (test code = 1742-6) 53 U/L 5-50 H AST(SGOT) (test code = 4000028034) 37 U/L 13-40 eGFR (test code = 0872402155) mL/min/1.73m2 JAY (test code = JAY) Association of Glomerular Filtration Rate (GFR) and Staging of Kidney Disease* + --+ --+ ------+| GFR (mL/min/1.73 m2) ?| With Kidney Damage ?| ?Without Kidney Damage+ --------+ --------+ +| ?>90 ?| ?Stage one ?| ? Normal ?+ ---+ ---+ -------+| ?60-89 ?| ?Stage two ?| ? Decreased GFR ? + --+ --+ ------+| ?30-59 ?| ?Stage three ?| ? Stage three ? + --+ --+ ------+| ?15-29 ?| ?Stage four ? | ? Stage four ?+ ---+ ---+ -------+| ?<15 (or dialysis) ? ?| ?Stage five ? | ? Stage five ?+ ---+ ---+ -------+ *Each stage assumes the associated GFR level has been in effect for at least three months. ?Stages 1 to 5, with or without kidney disease, indicate chronic kidney disease. Notes: Determination of stages one and two (with eGFR >59mL/min/1.73 m2) requires estimation of kidney damage for at least three months as defined by structural or functional abnormalities of the kidney, manifested by either:Pathological abnormalities or Markers of kidney damage (including abnormalities in the composition of the blood or urine or abnormalities in imaging tests). Lab Interpretation (test code = 03447-5) [facility] 18:18:35* Test Item Value Reference Range Interpretation Comme nts LIPASE (test code = 3280202676) 49 U/L 0-220 Lab Interpretation (test cod e = 98219-4) [facility] WITH [id number] 18:05:30* Test Item Value Reference Range Interpretation Comme nts WBC (test code = 6690-2) See_Comment H [[employer]] The system which generated this result transmitted reference range: 4.20 - 10.70 10*3/?L. The reference range was not used to interpret this result as normal/abnormal. RBC (test code = 789-8) See_Comment [Automated messa ge] The system which generated this result transmitted reference range: 4.26 - 5.52 10*6/?L. The reference range was not used to interpret this result as normal/abnormal. HGB (test code = 718-7) 15.8 g/dL 12.2-16.4 HCT (test code = 4544-3) 45.2 % 38.4-49.3 MCV (test code = 787-2) 84.6 fL 81.7-95.6 MCH (test code = 785-6) 29.6 pg 26.1-32.7 MCHC (test code = 786-4) 35.0 g/dL 31.2-35.0 RDW-SD (test code = 80863-5) 37.9 fL 38.5-51.6 L RDW-CV (test code = 788-0) 12.5 % 12.1-15.4 PLT (test code = 777-3) See_Comment [Automated [employer]] The system which generated this result transmitted reference range: 150 - 328 10*3/?L. The reference range was not used to interpret this result as normal/abnormal. MPV (test code = 47771-2) 12.1 fL 9.8-13.0 NRBC/100 WBC (test code = 8183653599) See_Comment [Automated Chat& ([employer]And) ssage] The system which generated this result transmitted reference range: 0.0 - 10.0 /100 WBCs. The reference range was not used to interpret this result as normal/abnormal. NRBC x10^3 (test code = 6069455754) <0.01 See_Comment [Automated messa ge] The system which generated this result transmitted reference range: 10*3/?L. The reference range was not used to interpret this result as normal/abnormal. GRAN MAT (NEUT) % (test code = 770-8) 72.0 % IMM GRAN % (test code = 6991256803) 0.60 % LYMPH % (test code = 736-9) 19.4 % MONO % (test code = 5905-5) 6.7 % EOS % (test code = 713-8) 1.0 % BASO % (test code = 706-2) 0.3 % GRAN MAT x10^3(ANC) (test code = 4468127206) 8.94 10*3/uL 1.99-6.95 H IMM GRAN x10^3 (test code = 8662972346) 0.08 10*3/uL 0.00-0.06 H LYMPH x10^3 (test code = 731-0) 2.41 10*3/uL 1.09-3.23 MONO x10^3 (test code = 742-7) 0.83 10*3/uL 0.36-1.02 EOS x10^3 (test code = 711-2) 0.13 10*3/uL 0.06-0.53 BASO x10^3 (test code = 704-7) 0.04 10*3/uL 0.01-0.09 Lab Interpretation (test code = 21327-7) Abnormal [facility] Notes Date/Time Note Provider Source 2023-06-28 20:21:17 1446-96-41L54:21:17 Pt discharged with diagnosis of raccoon bite. Printed and verbal instructions reviewed with and given to patient. Prescriptions given x 1. Pt verbalized understanding of teaching, medications, and recommended follow-up. Denies questions or concerns at this time. Pt ambulatory at discharge. Appears in no apparent distress. No ataxia noted. Accompanied by family member. Referral sent to for follow-up rabies vaccinations. 76370-0Qjrqywnww department IkmjTM7724-41-38Z57:22:01Emergen department NoteTXT1.2.840.136108.1.13.104.2.7.2.72 7879|[id number] for patient bvmm43995-2UcvkTDCDBZYPGXURqwomnwmt C-CDA narrative text[address] PuclUiqalrcbyIfsgpheitFESK4688060076KEH SGZZFSONZKQSDQQKUMJ6243-18-11W88:22:011 .2.840.599592.1.72.3.15|1.2.840.522302. 1.13.104.2.7.2.727879_[id number] [facility] 2023-06-28 19:48:06 1687-02-70T89:48:06 Applied nonstick drsg and secured w/ kerlix. Educated on s/sx infection. Patient and able to teach back. Medicated per EMAR. Awaiting DC orders. 13045-8Ywgannawp department QmirOC1407-92-73G14:49:39[facility] NoteTXT1.2.840.851986.1.13.104.2.7.2.72 7879|[id number] for patient bkio25898-2XhyjXRIBKLYZSYWBalrwukgd C-CDA narrative textUT[address] Dyvi[id number] SCWQLQHGQSARKUNCEIO9094-59-10Y46:49:391 .2.840.580088.1.72.3.15|1.2.840.711577. 1.13.104.2.7.2.727879_[id number] [facility] 2023-06-28 19:33:06 5748-69-67N22:33:06 Order rec'd for 800 mg ibuprofen per provider. 81188-1Sswtxpbcp department RutzZN2103-07-20S59:33:28[facility] NoteTXT1.2.840.271805.1.13.104.2.7.2.72 7879|[id number] for patient bgyp25070-2CxksWFYLIKIARRBBhcvkrdnw C-CDA narrative text[address] Smith [id number] AUBETLDEQRHVSIECBNN6239-53-84B61:33:281 .2.840.420726.1.72.3.15|1.2.840.988245. 1.13.104.2.7.2.727879_[id number] [facility] 2023-06-28 18:50:00 5827-59-06H07:50:00 Pt alert, color improved, A&OX4. remains in room. Medicated per EMAR. 08890-8Jctxnfbqt department PncnIB7647-48-93G75:01:15Emergency department NoteTXT1.2.840.793669.1.13.104.2.7.2.72 7879|[id number] for patient ewjj54853-4UalsVGFNBXPZWIIPslgylcra C-CDA narrative [id number] XQEQLZSMRYKHAHFWCRR0689-06-36O31:01:151 .2.840.177247.1.72.3.15|1.2.840.452758. 1.13.104.2.7.2.727879_[id number] [facility] 2023-06-28 18:42:00 3437-61-70Q83:42:00 During infiltration of medication to left thumb by provider pt noted to hyperventilate, vagal down, and syncope. in room. Reclined chair for safety, applied cool compresses to neck and forehead. VSS, HR new but rising. RR even, unlabored. Pallor and diaphoresis noted during episode. 95113-5Yeqbdoajn department MuxeIO8184-09-61L20:00:06[facility] NoteTXT1.2.840.920394.1.13.104.2.7.2.72 7879|[id number] for patient mjsx61941-4ZddwHGHSPUWEPPXUmemmztyp C-CDA narrative text[id number] SXTTKKQNOXEHERRITDE3377-07-47S37:00:061 .2.840.338795.1.72.3.15|1.2.840.806555. 1.13.104.2.7.2.727879_[id number] [facility] 2023-06-28 17:45:00 8288-24-07L53:45:00 Placed pt's left hand in sterile water and hibaclens soak. 65896-0Jjvpukuqp department ZpobHJ2248-20-86M13:20:16[facility] NoteTXT1.2.840.066730.1.13.104.2.7.2.72 7879|[id number] for patient vvzv68012-6SqwjWYZFHRUKXJKDzkkvehhb C-CDA narrative text[id number] DGUVCSXUULCOITLJOYY4161-44-48V64:20:161 .2.840.606259.1.72.3.15|1.2.840.366755. 1.13.104.2.7.2.727879_[id number] [facility] 2023-06-28 16:45:34 2359-24-73R78:45:34 Patient states: "About 4 hours ago I was attacked by a raccoon."Reports bite to left thumb. 36700-8Dpyzvmfuk department Triage dzikEW7195-35-88Q11:45:58[facility] Triage noteTXT1.2.840.480166.1.13.104.2.7.2.72 7879|[id number] for patient gqtg69782-1Ddndrkhrg department NoteLNNARRATIVEFormatted C-CDA narrative [id number] M Cruz RNUT[address] Ty[id number] AVBKXGGKIACRNFCQUIM0924-28-02S76:45:581 .2.840.083696.1.72.3.15|1.2.840.636075. 1.13.104.2.7.2.727879_[id number] Hazel Cote RN [facility] 2023-05-31 18:29:09 1067-37-24K16:29:09 Pt given printed and verbal discharge instructions regarding right knee pain, encouraged hydration,NO Prescriptions providedDiscussed ibuprofen and to take with food to avoid GI distress.Pt verbalized understanding of instructions, pt awake alert oriented, resp reg unlabored, skin w/d, color appropriate for race, moves all ext well,pt encouraged to follow up with pcpAdvised to seek medical attention for new/prolonged/worsening of symptoms,No adverse reaction to meds given in ER noted upon dischargeAwake, alert oriented, resp reg unlabored, skin w/d, pt leaving amb with steady gait, in no apparent distress, 45390-7Mlyxcbrly department HvhsGX3065-48-86S63:29:30[facility] NoteTXT1.2.840.069968.1.13.104.2.7.2.72 7879|[id number] for patient dkzf86032-7LuxpXBBOZATVWEZZpufthmvt C-CDA narrative [id number] M Rodriguez RNUT[id number] HFVQHMFWIZGULSFIFYH2476-59-74Q29:29:301 .2.840.565413.1.72.3.15|1.2.840.529667. 1.13.104.2.7.2.727879_[id number] Viktoriya Chaz Frias RN [facility] 2023-05-31 17:03:57 2930-50-11M12:03:57 Patient states: "About 3 weeks ago I fell on my right knee and it's been killing me ever since" 08875-8Gnyvrmbwp department Triage fllfOU7456-90-63I97:04:24[facility] Triage noteTXT1.2.840.645801.1.13.104.2.7.2.72 7879|[id number] for patient thur63604-8Vxbjvuvkr department NoteLNNARRATIVEFormatted C-CDA narrative [id number] M Cruz RNUT[id number] BZOWMMADVKMGNFWDPEA2140-48-56V88:04:241 .2.840.028149.1.72.3.15|1.2.840.417264. 1.13.104.2.7.2.727879_[id number] Hazel Cote RN [facility] 2023-05-31 17:00:00 1281-59-61W04:00:00 [facility] Emergency Department NotePatient Name: Angel BestDate of : 1990 33 year old maleTreatment Room: [facility]-PLMedical Record Number: [id number] Care Physician: Gisella LindPatient Escorted by: Family [5]Mode of Arrival: Personal means [1]EMS Treatment Prior to ED Arrival:ENROLLMENT REPRESENTATIVE treatment: Medication (comment)ENROLLMENT REPRESENTATIVE treatment comments: rx pain medsTravel and Exposure Screening:SymptomsDoes patient have any of these symptoms?: (not recorded)Exposure ScreeningHas patient had contact with someone with a communicable disease in the last month?: (not recorded)Diseases exposed to:: (not recorded)Is Patient ?: (not recorded)Exposure Date: (not recorded)Chief Complaint:Chief ComplaintPatient presents withKnee PainRightHistory of Present Illness:The patient presents from home for evaluation of right knee pain after a mechanical fall he suffered about 3 weeks ago. He reports he has been having pain ever since. He has been using medications at home which she cannot recall the name of. He did see his PCP for this but has not had any imaging. He reports the pain is worse with bending and movement and is better when he is still.Here for evaluation.Past Medical History/Immunizations:Past Medical History:Diagnosis DateGERD (gastroesophageal reflux disease)PUD (peptic ulcer disease)Tetanus received in last 5 years: UnknownAllergies:No Known AllergiesPast Social History:Tobacco UseEvery Day; Types: CigarettesPassive Exposure: CurrentSmokeless Tobacco: Never used smokeless tobacco.Comments: Patient states that he uses vapes with nicotine in replace of cigarettesVaping UseNever assessedAlcohol UseYes.Comments: socially (once every few months)Drug UseNever.Past Surgical History:Past Surgical History:Procedure Laterality DateESOPHAGOGASTRODUODENOSCOPYHB COLONSCOPY BALLOON DILATIONReview of Systems:Review of SystemsConstitutional: Negative for chills and fever.Respiratory: Negative for cough and shortness of breath.Cardiovascular: Negative for chest pain.Gastrointestinal: Negative for abdominal pain and vomiting.Genitourinary: Negative for dysuria.Musculoskeletal: Positive for arthralgias. Negative for neck pain and neck stiffness.Skin: Negative for wound.Neurological: Negative for dizziness.Psychiatric/Behavioral: Negative for agitation.Physical Exam:ED Triage Vitals [05/31/23 1704]Weight 123.8 kg (273 lb)Actual or estimated Estimated by patient/family reportHeight 1.829 m (6')BP (!) 145/85Pulse 84Resp 16Temp 36.6 ?C (97.9 ?F)Temp source OralSpO2 99 %Measured on Room airPhysical ExamVitals and nursing note reviewed.Constitutional:Appearance: Normal appearance.HENT:Head: Normocephalic and atraumatic.Mouth/Throat:Mouth: Mucous membranes are dry.Cardiovascular:Rate and Rhythm: Normal rate.Pulses: Normal pulses.Pulmonary:Effort: Pulmonary effort is normal. No respiratory distress.Abdominal:General: There is no distension.Musculoskeletal:General: Swelling present.Cervical back: Neck supple.Comments: Decreased range of motion of the right knee due to pain.Mild swelling about the right knee.Negative anterior and posterior drawer test on the right side.Skin:General: Skin is warm.Neurological:Mental Status: He is alert.Radiology:XR KNEE 3 VW RIGHTFinal ResultXR KNEE 3 VW RIGHTHISTORY: right knee painCOMPARISON: none available.Findings:The osseous structures are intact. Tricompartmental mild osteoarthrosis.Small knee joint effusion.Mild soft tissue edema. No abnormal soft tissue calcification.IMPRESSIONNo acute osseous abnormality.Lab Results:Lab Results - No data to displayEKG:If EKG completed, see Procedure Note.Orders and Treatments:Orders Placed This EncounterProceduresXR KNEE 3 VW RIGHTOrders Placed This EncounterMedicationsHYDROcodone-acetami nophen (NORCO 5) 5-325 mg tablet 1 tabletFirst Provider Eval:ED EventsDate/Time Event User Oveseubr42/13/24 1705 Medical Screening Begins INDIA DICKEY DO --05/31/23 170 First Provider Evaluation INDIA DICKEY DO --ED COURSEDiagnosis/Impression as of 05/31/23 1753Acute pain of right kneeProcedures:ProceduresMDM:Medical Decision MakingThe patient presents from home for evaluation for right knee pain that has had for about 3 weeks since a mechanical fall. He has seen his PCP for this but has not had any imaging. He is using pain medications with reports of not helping. He reports the pain is better when he is resting and is worse with bending and movement.Vital signs are stable in the ER.Mild swelling about the right knee with slight decreased range of motion due to pain.He has a negative anterior and posterior drawer test on the right side.Low concern for fracture however will obtain an x-ray.Will also give the patient pain medication here in the ER.Anticipate discharge home later.1751 - the patient is doing well here in the EC.Xray shows no acute osseous injuries.He was given crutches and an marisa wrap.Recommend f/u with pcp for possible outpatient MRI.He remains stable here in the EC and is ok for dc home with pcp f/u.Problems Addressed:Acute pain of right knee: acute illness or injuryAmount and/or Complexity of Data ReviewedRadiology: ordered and independent interpretation performed. Decision-making details documented in ED Course.RiskOTC drugs.Prescription drug management.Flowsheet Documentation:Scoring Tools:No data recordedDisposition/Condition:ED DispositionED DispositionDisch - HomeConditionStableComment--Discharge Medications:Patient's MedicationsSTART taking these medicationsNo medications on fileCONTINUE taking these medications which have NOT CHANGEDALBUTEROL 90 MCG/ACTUATION INHALER Inhale 2 Puffs every 4 (four) hours as needed for Wheezing or Shortness of Breath.AZITHROMYCIN 250 MG TABLET Take 1 tablet by mouth in the morning.BENZONATATE 100 MG CAPSULE Take 1 capsule by mouth 3 (three) times daily as needed for Cough.DOXYCYCLINE HYCLATE 100 MG CAPSULE Take 1 capsule by mouth in the morning and 1 capsule in the evening.METHYLPREDNISOLONE (MEDROL, LAM,) 4 MG TABLETS Take by mouth SEE-INSTRUCTIONS. follow package directionsNIRMATRELVIR-RITONAVIR 300 MG (150 MG X 2)-100 MG TABLET Take 3 tablets by mouth in the morning and 3 tablets in the evening.PANTOPRAZOLE 40 MG EC TABLET Take 1 tablet by mouth.TRAZODONE 150 MG TABLET Take 1 tablet by mouth.START taking Modified Medications as PrescribedNo medications on fileSTOP taking these medicationsNo medications on fileFollow-up:Electronically signed by:India Dickey DO05/31/231752 60005-4Cqyqvqjbh Emergency department NxwqFN5883-62-06P78:53:25Physician Emergency department NoteTXT1.2.840.403259.1.13.104.2.7.2.72 7879|[id number] for patient unla84432-5Ewfywzhyo department NoteLNNARRATIVEFormatted C-CDA narrative textUT[address] Tyler StreetVzv[id number] AHAYKWRZUJXOYFKJJED0976-48-79I23:53:251 .2.840.647824.1.72.3.15|1.2.840.636889. 1.13.104.2.7.2.727879_[id number] [facility] 2023-05-23 09:19:11 0389-74-27H41:19:11 Chief ComplaintPatient presents withKnee PainRIGHT KNEE PAIN FOR 12 YEARS. HE FELL LAST FRIDAY AND THE PAIN HAS FLARED UP. HE HAS NEVER HAD ANY TREATMENT FOR THE PAIN. [place] [address]-1Qvjdm JvquMA5400-20-60R96:19:30Nurse NoteTXT1.2.840.844769.1.13.131.2.7.2.72 7879|[id number] for patient xqel03638-4Hljls NoteLNNARRATIVEFormatted C-CDA narrative [id number] Hurst MA [facility]Os[facility] [place], [place] [id number] 10-06-0409:19:301.2.840.792950.1.72.3. 15|1.2.840.952969.1.13.131.2.7.2.727927 _[id number] Mitzi Paniagua MA, II [facility] 2023-[facility]-18 13:37:42 5205-25-03X65:37:42 Patient discharged with diagnosis of bronchitis. Follow up with pcp. Take rx as prescribed. Verbalized understanding. 17116-2Zhcfvkpsf department YxexVN6983-67-14V88:38:38[facility] department NoteTXT1.2.840.743206.1.13.104.2.7.2.72 7879|[id number] for patient oqrr47952-3QnqwZOSZBCMSKRRVyyyuktfv C-CDA narrative text[id number] ICCDZGAVYFKKZRVPCZK3405-87-39L85:38:381 .2.840.889982.1.72.3.15|1.2.840.048544. 1.13.104.2.7.2.727879_[id number] [facility] 2023-03-18 12:36:21 9349-50-54T75:36:21 Cough and sore throat x 1 week. 2 weeks ago he was diagnosed with covid. Coughing up dark green sputum. 53116-5Tagfcybah department Triage plrsAC3947-12-36J90:37:00[facility] department Triage noteTXT1.2.840.720279.1.13.104.2.7.2.72 7879|[id number] for patient dqsu23223-9Zqkdjsepu department NoteLNNARRATIVEFormatted C-CDA narrative [id number] D Wierzbicki RNUT[address] [id number] BXGWVYGFHVKLFLVJAAA2778-20-24V33:37:001 .2.840.038870.1.72.3.15|1.2.840.002967. 1.13.104.2.7.2.727879_[id number] Malone RN [facility] 2023-02-28 20:53:41 5751-04-48G74:53:41 Pt given printed and verbal discharge instructions regarding COVID-19 and sore throatPrescriptions providedPt verbalized understanding of instructions, pt awake alert oriented, resp reg unlabored, skin w/d, color appropriate for race, moves all ext well,pt encouraged to follow up with pcpAdvised to seek medical attention for new/prolonged/worsening of symptomsNo adverse reaction to meds given in ER noted upon dischargeAwake, alert oriented, resp reg unlabored, skin w/d, pt leaving amb with steady gait, in no apparent distress 16038-4Hotrtjqys department UqifGO0244-35-15R78:55:02[facility] NoteTXT1.2.840.386453.1.13.104.2.7.2.72 7879|[id number] for patient mvwp51647-8FikwJGBPRLPPAMNCmjfapvio C-CDA narrative [id number] A Diaz RN[address] Upm[id number] WWKHUCIGPWSCRHVBTYE8321-74-81O44:55:021 .2.840.270169.1.72.3.15|1.2.840.978195. 1.13.104.2.7.2.727879_[id number] Carmen Peña RN [facility] 2023-02-28 19:44:18 8430-08-01S23:44:18 Pt presents with cold symptoms since last night, bodyaches, cough, sore throat and loss of taste and smell. 29103-7Trqykoyyf department Triage vipxWO9425-77-08S21:46:37[facility] Triage noteTXT1.2.840.865383.1.13.104.2.7.2.72 7879|[id number] for patient ztbn47649-3Spoqfjdsa department NoteLNNARRATIVEFormatted C-CDA narrative [id number] E Linkes RN[address] [id number] GOAOPWHZEUIEFVEKQOL6889-87-31A85:46:371 .2.840.168270.1.72.3.15|1.2.840.449353. 1.13.104.2.7.2.727879_[id number] Bernadine Suazo Mukeshmirina [facility] 2022-09-28 11:03:07 6390-31-56M38:03:07 Pt given printed and verbal discharge instructions regarding UTI, encouraged hydration,Prescriptions providedDiscussed antibiotic therapy and to take until all completed unless adverse reaction occurs - if occurs, discontinue medication and follow up with pcp/seek medical attentionPt verbalized understanding of instructions, pt awake alert oriented, resp reg unlabored, skin w/d, color appropriate for race, moves all ext well,pt encouraged to follow up with pcpAdvised to seek medical attention for new/prolonged/worsening of symptoms,Symptoms improvedAwake, alert oriented, resp reg unlabored, skin w/d, pt leaving amb with steady gait, in no apparent distress, 32876-1Ieoapalya department VxxrQV2528-51-53S69:04:14[facility] NoteTXT1.2.840.513801.1.13.104.2.7.2.72 7879|[id number] for patient ckkv73716-5DbjeUL137866202Vsgcmqt Yuval Malone RN[id number] GDZWFXQNAYXBRFOVZPS8175-19-99A08:04:141 .2.840.795058.1.72.3.15|1.2.840.364490. 1.13.104.2.7.2.727879_[id number] James Malone RN [facility] 2022-09-28 09:29:34 9105-64-03M16:29:34 Patient reports that this morning he was sitting on the floor and suddenly began to have extreme pain in his left testicle. Reports that the pain was excruciating and spouse states that she examined the testicle and found it to be slightly lower than the right and red. Patient reports that the testicle was painful to the touch. Patient reports the pain lasted approx 1 hour and then began to dissipate. At the time of triage patient has no pain. 01755-6Bmiaebdjf department Triage pbfdJW3844-56-82Z47:31:27[facility] department Triage noteTXT1.2.840.940999.1.13.104.2.7.2.72 7879|[id number] for patient zssj08704-8Lfxsesyje department [id number] M Hayes RNUT[address] QwwqHhhnqftrcUqbizxeeeOXBR4794239137NKI HHNTCMQJPHPXBZSXCVD2019-78-18B12:31:271 .2.840.241955.1.72.3.15|1.2.840.914979. 1.13.104.2.7.2.727879_[id number] Viktoriya Frias RN [facility] 2022-09-25 09:52:48 3848-50-54V34:52:48 Patient discharged home with written and verbal instructions. Patient was educated on prescriptions and follow up appointment. Patient verbalized understanding. Patient is alert and oriented to name, time, place, and situation. GCS 15. Respiratory rate even and unlabored, skin warm and dry. Vital sings rechecked and documented. Patient denies pain at the moment. Questions about discharge instructions encouraged. Patient has a steady gait out of the ER.Esc[place] [address]-8Ryazkplij department QvnqFL8957-65-56C71:56:23[facility] department NoteTXT1.2.840.655146.1.13.104.2.7.2.72 7879|[id number] for patient ryal85463-4RznmPWQIEPGUFW[address] AzalMgwrnoynpGogayxvqqJDNF8134279615KTK TKCSXGOIOQKUFEEKVGV5340-50-41G34:56:231 .2.840.691489.1.72.3.15|1.2.840.183390. 1.13.104.2.7.2.727879_[id number] [facility] 2022-09-25 07:38:45 7849-34-55E39:38:45 Patient's name and verified with patient. Chief Complaint Patient presents with Abdominal Pain Nausea Vomiting Patient ambulatory with steady gait with EC arrival. Patient is conscious and alert, with normal/unlabored breathing, and normal color/tone for ethnicity -oriented to name, time, place, and situation. GCS 15.Patient reports he has been experiencing abdominal pain ~1 week (points to r/l lower quadrants when describing pain) - also mentions nausea and vomiting. Patient denies diarrhea, fever, chills, chest pain and shortness of breath. Abdomen soft and non tender with palpation. No past medical history on file. Stomach ulcers, per patient. No known allergies. Vitals obtained. Assessment performed. IV in place and patent.Placed on continuous spo2/cardiac monitoring, HR 87Bed low and locked, secured with two rails, call light within reach.Belongings at bedside. Patient aware [place] [address]-8Ycufmimoh department ZegzTW6871-25-84M22:40:08[facility] department NoteTXT1.2.840.424095.1.13.104.2.7.2.72 7879|[id number] for patient reof31993-0FdghRRTDOGICWY[id number] ODWITFYHBXFVQIUPROO1579-98-59E39:40:081 .2.840.240153.1.72.3.15|1.2.840.441039. 1.13.104.2.7.2.727879_[id number] [facility] 2022-09-25 07:08:48 6135-30-84Q14:08:48 Abd pain ~ 1 week with occasional nausea/vomiting - last emesis episode this morning prior to ER arrival.Points to R/L lower abdominal pain when describing pain. Denies shortness of breath , chest pain, fever, chills, and diarrhea. Hx - Ulcers 93327-3Chmcevqwo department Triage woebEY9495-07-52K90:11:46[facility] department Triage noteTXT1.2.840.702321.1.13.104.2.7.2.72 7879|[id number] for patient lnyv07054-0Ojtbqlvsb department [id number] Oxford RN[id number] GICNUIWWWZXEZQKAIAQ7663-93-47P43:11:461 .2.840.192309.1.72.3.15|1.2.840.067984. 1.13.104.2.7.2.727879_[id number] Dionne Artis RN [facility] 2022-09-06 13:52:37 2411-18-77F13:52:37 Patient is here for intermittent rectal bleeding x years. Has history of rectal bleeding and has seen a GI specialist, upper endoscopy was performed and showed esophageal ulcers. He was also diagnosed with hemorrhoids at the time. States the amount of blood ranges from scant amount to large amount in toilet, also reports occasional clots, states the color is between bright red and dark. Reports heartburn is only upper GI symptom he is having at this time. VSS, medications reconciled. 69945-9Nymbj JlpxTT2989-10-00S53:55:33Nurse NoteTXT1.2.840.280339.1.13.131.2.7.2.72 7879|[id number] for patient [facility] [place], [place] [id number] 08-09-20:55:331.2.840.677782.1.72.3. 15|1.2.840.516942.1.13.131.2.7.2.913633 _[id number] [facility]
[2023-07-23 07:28] LABS: Absolute Eosinophils 0.1 K/uL (0-0.5); Absolute Lymphocytes (CBC) 1.1 K/uL (0.7-4.9); Absolute Monocytes 0.6 K/uL (0.1-1.3); Absolute Neutrophil 5.7 K/uL (1.8-8.0); Basophils % 0.5 % (0-1.3); Eosinophils % 1.3 % (0-4.4); Hematocrit 41.5 % (39.6-49.0); Hemoglobin 13.8 g/dL (13.6-17.9); MCHC 33.3 g/dL (32.0-36.0); MCV 84.1 fL (80-100); MPV 10.1 fL (7.6-11.3); Monocytes % 7.7 % (3.3-12.3); Neutrophils % 75.5 % (41.7-73.7); Platelets 199 thou/uL (152-406); RBC Red Blood Cell Count 4.93 M/uL (4.33-5.43); Red Cell Distribution Width 13.9 % (12.1-15.2)
[2023-07-23] MEDS ORDERED: ASPIRIN 81 MG CHEWABLE TABLET ONE (07:32)
[2023-07-23 07:45] LABS: Anion Gap 8.7 mEq/L (5.0-15.0); BUN Blood Urea Nitrogen 20 mg/dL (7-18); Bicarbonate 24 mEq/L (21-32); Glomerular Filtration Rate 110 ml/min (=/>90); Glucose Level 111 mg/dL (74-106); Magnesium 2.1 mg/dL (1.6-2.4); Potassium 3.7 mEq/L (3.5-5.1); Sodium Level 138 mEq/L (136-145)
[2023-07-23 07:47] LABS: Troponin High Sensitivity < 3.0 pg/mL (<58.9)
--- NOTE | 2023-07-23 08:02 | RAD REPORT ---
EXAM DESCRIPTION: Rosa Single View07/23/2023 7:26 am CLINICAL HISTORY: CHEST PAIN COMPARISON: Chest Pa And Lat (2 Views) dated 06/27/2017 TECHNIQUE: Portable AP view of the chest. FINDINGS: The lungs are clear. No pneumothorax or effusion. The cardiomediastinal contours are unre markable. IMPRESSION: No acute cardiopulmonary process.
--- NOTE | 2023-07-23 08:33 | ER ---
Nurse's Notes [facility] Name: Angel Osborne Age: 33 yrs Sex: Male : 1990 Arrival Date: 07/23/2023 Time: 06:43 Bed 3 Private MD: Diagnosis: Chest pain, unspecified Presentation: 07/22 06:57 Chief complaint: Patient states: I started having chest pain around 9pm last night and jb4 left arm tingling at 0550 this morning. Coronavirus screen: At this time, the client does not indicate any symptoms associated with coronavirus-19. Ebola Screen: No symptoms or risks identified at this time. Initial Sepsis Screen: Does the patient meet any 2 criteria? No. Patient's initial sepsis screen is negative. Does the patient have a suspected source of infection? No. Patient's initial sepsis screen is negative. Risk Assessment: Do you want to hurt yourself or someone else? Patient reports no desire to harm self or others. Onset of symptoms was July 23, 2023. Transition of care: patient was not received from another setting of care. 06:57 Method Of Arrival: Ambulatory jb4 06:57 Acuity: MIKE 2 jb4 Historical: - Allergies: 06:59 NKA; jb4 - PMHx: 06:59 Depression; hemorrhoids; jb4 - Immunization history:: Adult Immunizations up to date. - Infectious Disease History:: Denies. - Social history:: Smoking status: Reported history of juuling and/or vaping. Screenin:27 [facility] ED Fall Risk Assessment (Adult) History of falling in the last 3 months, ap3 including since admission No falls in past 3 months (0 pts) Confusion or Disorientation No (0 pts) Intoxicated or Sedated No (0 pts) Impaired Gait No (0 pts) Mobility Assist Device Used No (0 pt) Altered Elimination No (0 pt) Score/Fall Risk Level 0 - 2 = Low Risk Oriented to surroundings, Maintained a safe environment, Educated pt \T\ family on fall prevention, incl call for assistance when getting out of bed, Assessed \T\ reinforced patient's understanding of fall precautions, Provided non-skid footwear, Hourly rounding (assess needs \T\ fall precautionary measures) done, Used ambulatory aids as needed (educated on \T\ assisted with), Used gait belt as appropriate. Abuse screen: Denies threats or abuse. Nutritional screening: No deficits noted. Tuberculosis screening: No symptoms or risk factors identified. Assessment: 07:27 General: Appears in no apparent distress. Behavior is calm, cooperative, appropriate ap3 for age. Pain: Complains of pain in chest Pain does not radiate. Pain: Pain began 1 day ago. Neuro: Level of Consciousness is awake, alert, obeys commands, Oriented to person, place, time, situation. Cardiovascular: Patient's skin is warm and dry. Respiratory: Airway is patent Respiratory effort is even, unlabored, Respiratory pattern is regular, symmetrical. 08:17 Reassessment: Patient and/or family updated on plan of care and expected duration. Pain ap3 level reassessed. Patient is alert, oriented x 3, equal unlabored respirations, skin warm/dry/pink. 08:52 Reassessment: No changes from previously documented assessment. Patient and/or family ld1 updated on plan of care and expected duration. Pain level reassessed. Patient is alert, oriented x 3, equal unlabored respirations, skin warm/dry/pink. Vital Signs: 06:57 BP 113 / 80; Pulse 93; Resp 16; Pulse Ox 97% on R/A; Weight 122.47 kg; Height 6 ft. 0 jb4 in. ; Pain 8/10; 08:17 BP 112 / 81; Pulse 76; Resp 17; Pulse Ox 98% on R/A; ap3 08:52 BP 113 / 78; Pulse 76; Resp 18; Pulse Ox 100% on R/A; ld1 06:57 Body Mass Index 36.62 (122.47 kg, 182.88 cm) jb4 06:57 Pain Scale: Adult jb4 ED Course: 06:48 Patient arrived in ED. jj6 06:59 Triage completed. jb4 06:59 Arm band placed on right wrist. jb4 07:02 Abhishek Munoz DO is Attending Physician. ms3 07:26 Initial lab(s) drawn, by ok, sent to lab. EKG done, by ED staff, reviewed by Abhishek Munoz DO. Inserted saline lock: 20 gauge in right antecubital area, using aseptic technique. Blood collected. 07:28 XRAY Chest (1 view) In Process Unspecified. EDMS 07:28 No Lynch, RN is Primary Nurse. ap3 07:28 Patient has correct armband on for positive identification. Placed in gown. Bed in low ap3 position. Call light in reach. Side rails up X2. Provided Education on: call light education . Client placed on continuous cardiac and pulse oximetry monitoring. NIBP monitoring applied. cyber systems administrator on. Pulse ox on. NIBP on. 07:28 O2 via room air. ap3 08:33 Oli Rosa MD is Referral Physician. ms3 08:52 No provider procedures requiring assistance completed. IV discontinued, intact, ld1 bleeding controlled, No redness/swelling at site. Administered Medications: 07:35 Drug: Aspirin PO Chewable Tablet 324 mg PO once; 81 mg tablets x 4 Route: PO; ap3 Medication: 07:28 VIS not applicable for this client. ap3 Outcome: 08:33 Discharge ordered by . ms3 08:52 Discharged to home ambulatory, ld1 08:52 Condition: stable 08:52 Discharge instructions given to patient, Instructed on discharge instructions, follow up and referral plans. Demonstrated understanding of instructions, follow-up care, 08:53 Patient left the ED. ld1 Signatures: Dispatcher [employer] EDMS Emerson Resendiz RN RN jb4 No Lynch RN RN ap3 Abhishek Munoz DO DO ms3 Puja Munoz RN RN ld1 Cora Herron jj6
--- NOTE | 2023-07-23 08:33 | EDPHYS ---
Physician Documentation [facility] Name: Angel Osborne Age: 33 yrs Sex: Male : 1990 Arrival Date: 07/23/2023 Time: 06:43 Bed 3 Private MD: ED Physician Abhishek Munoz HPI: 07/22 07:49 This 33 yrs old Male presents to ER via Ambulatory with complaints of Chest Pain. [facility] 07:49 33-year-old male with past medical history of depression, hemorrhoids [place] to the [facility] [place] for chest pain that began last night. Patient states his discomfort is an 8/10. Patient endorses nausea. Patient denies vomiting, shortness of breath. Patient denies any alleviating or inciting factors.. Historical: - Allergies: 06:59 NKA; jb4 - PMHx: 06:59 Depression; hemorrhoids; jb4 - Immunization history:: Adult Immunizations up to date. - Infectious Disease History:: Denies. - Social history:: Smoking status: Reported history of juuling and/or vaping. ROS: 07:49 Constitutional: Negative for fever, and chills. Neck: Negative for injury, pain, and ms3 swelling, 07:49 Respiratory: Negative for shortness of breath, cough, wheezing, and pleuritic chest pain, 07:49 MS/Extremity: Negative for injury and deformity, Skin: Negative for injury, rash, and discoloration, 07:49 Cardiovascular: Positive for chest pain, 07:49 Abdomen/GI: Positive for nausea, Exam: 07:49 Constitutional: This is a well developed, well nourished patient who is awake, alert, ms3 and in no acute distress. Head/Face: Normocephalic, atraumatic. Chest/axilla: Normal chest wall appearance and motion. Nontender with no deformity. Cardiovascular: Regular rate and rhythm with a normal S1 and S2. No gallops, murmurs, or rubs. Normal PMI, no JVD. No pulse deficits. Respiratory: Lungs have equal breath sounds bilaterally, clear to auscultation and percussion. No rales, rhonchi or wheezes noted. No increased work of breathing, no retractions or nasal flaring. Abdomen/GI: Soft, non-tender, with normal bowel sounds. No distension or tympany. No guarding or rebound. No evidence of tenderness throughout. Skin: Warm, dry with normal turgor. Normal color with no rashes, no lesions, and no evidence of cellulitis. MS/ Extremity: Pulses equal, no cyanosis. Neurovascular intact. Full, normal range of motion. 07:51 ECG was reviewed by the Attending Physician. ms3 Vital Signs: 06:57 BP 113 / 80; Pulse 93; Resp 16; Pulse Ox 97% on R/A; Weight 122.47 kg; Height 6 ft. 0 jb4 in. ; Pain 8/10; 08:17 BP 112 / 81; Pulse 76; Resp 17; Pulse Ox 98% on R/A; ap3 08:52 BP 113 / 78; Pulse 76; Resp 18; Pulse Ox 100% on R/A; ld1 06:57 Body Mass Index 36.62 (122.47 kg, 182.88 cm) jb4 06:57 Pain Scale: Adult jb4 MDM: 07:12 Patient medically screened. ms3 07:49 Differential diagnosis: abnormal EKG, acute myocardial infarction, anxiety. ms3 14:55 HEART Score: History: Slightly Suspicious (0), ECG: Normal (0), Age: < or = 45 years ms3 (0), Risk Factors: No Risk Factors Known (0), Troponin: < or = 1 x Normal Limit (0), Total Score = 0. Data reviewed: vital signs, nurses notes, lab test result(s), EKG, radiologic studies, and as a result, I will discharge patient. I considered the following discharge prescriptions or medication management in the emergency department Medications were administered in the Emergency Department. See MAR. Independent interpretation of the following test(s) in the Emergency Department EKG: See my EKG interpretation above. Counseling: I had a detailed discussion with the patient and/or guardian regarding the historical points, exam findings, and any diagnostic results supporting the discharge/admit diagnosis, lab results, radiology results, the need for outpatient follow up, to return to the emergency department if symptoms worsen or persist or if there are any questions or concerns that arise at home. Special discussion: I discussed with the patient/guardian in detail that at this point there is no indication for admission to the hospital. It is understood, however, that if the symptoms persist or worsen the patient needs to return immediately for re-evaluation. ED course: Discussed labs, chest x-ray, EKG with patient. Patient to follow-up with Dr. Rosa as discussed. All questions were answered. Return precautions discussed include worsening symptoms, or any other concerns. On reevaluation patient is alert and oriented x 4, no apparent distress, nontoxic-appearing, speaking full sentences, ambulatory in the emergency department.. 07/22 07:11 Order name: Basic Metabolic Panel; Complete Time: 08:06 ms3 07/22 07:11 Order name: CBC with Diff; Complete Time: 08:06 ms3 07/22 07:11 Order name: Magnesium; Complete Time: 08:06 ms3 07/22 07:11 Order name: Troponin HS; Complete Time: 08:06 ms3 07/22 07:11 Order name: XRAY Chest (1 view); Complete Time: 08:06 ms3 07/22 07:11 Order name: EKG; Complete Time: 07:11 ms3 07/22 07:11 Order name: Cardiac monitoring; Complete Time: 07:26 ms3 07/22 07:11 Order name: EKG - Nurse/Tech; Complete Time: 07:26 ms3 07/22 07:11 Order name: IV Saline Lock; Complete Time: 07:26 ms3 07/22 07:11 Order name: Labs collected and sent; Complete Time: 07:26 ms3 07/22 07:11 Order name: O2 Per Protocol; Complete Time: 07:26 ms3 07/22 07:11 Order name: O2 Sat Monitoring; Complete Time: 07:26 ms3 EC:51 Rate is 73 beats/min. Rhythm is regular. QRS [place] is Normal. LA interval is normal. QRS ms3 interval is normal. Clinical impression: Normal ECG. Interpreted by me. Reviewed by me. Administered Medications: 07:35 Drug: Aspirin PO Chewable Tablet 324 mg PO once; 81 mg tablets x 4 Route: PO; ap3 Disposition Summary: 07/23/23 08:33 Discharge Ordered Notes: Location: Home ms3 Condition: Stable ms3 Diagnosis - Chest pain, unspecified ms3 Followup: ms3 - With: Oli Rosa MD - When: 1 - 2 days - Reason: Recheck today's complaints Discharge Instructions: - Discharge Summary Sheet ms3 - Nonspecific Chest Pain, Adult ms3 Forms: - Work release form iw - Medication Reconciliation Form ms3 - Antibiotic Education ms3 - Prescription Opioid Use ms3 - Patient Portal Instructions ms3 - Leadership Thank You Letter ms3 Signatures: Dispatcher [employer] Emerson Perrin, RN RN jb4 No Lynch RN RN ap3 Abhishek Munoz, DO ms3 Corrections: (The following items were deleted from the chart) 07:11 07:11 BASIC METABOLIC PANEL+C.LAB.BRZ ordered. EDMS EDMS 07:11 07:11 CBC+H.LAB.BRZ ordered. EDMS EDMS 07:11 07:11 MAGNESIUM+C.LAB.BRZ ordered. EDMS EDMS 07:11 07:11 Troponin High Sensitivity+C.LAB.BRZ ordered. EDMS EDMS 14:57 14:55 ED course: Discussed labs, chest x-ray, EKG with patient. Patient to follow-up ms3 with. ms3
[2023-07-23 09:19] VITALS: BP 113/78; O2SAT 100
--- NOTE | 2023-07-23 16:31 | EKG ---
Test Date: 2023-07-23 Test Time: 07:23:35 Tan Room Supervisor: ALP MEASUREMENT RESULTS: Intervals: Rate: 73 MD: 162 QRSD: 102 QT: 396 QTc: 436 Jewell: P: 59 MD: 162 QRS: 43 T: 31 INTERPRETIVE STATEMENTS: Normal sinus rhythm Normal ECG Compared to ECG 06/27/2017 13:02:05 No significant changes Electronically Signed On 07-23-23 16:30:48 CDT by Moises Hand
== END 2023-07-23 08:53 | disposition home or self-care (01) ==
LOC: ER 06:43
DX: R07.9 Chest pain, unspecified (principal)
CPT/HCPCS: 36415; 71045; 80048; 83735; 84484; 85025; 93005; 99285

== ENCOUNTER 2023-10-06 10:16 | Day surgery (SDC) | payer BC ==
[2023-10-06] MEDS: Ringers Lactate 1,000 ML IV ONE (11:20)
[2023-10-06 11:27] LABS: Absolute Eosinophils 0.1 K/uL (0-0.5); Absolute Lymphocytes (CBC) 1.7 K/uL (0.7-4.9); Absolute Monocytes 0.6 K/uL (0.1-1.3); Basophils % 0.4 % (0-1.3); Eosinophils % 1.6 % (0-4.4); Hematocrit 45.4 % (39.6-49.0); Lymphocytes % 20.1 % (15.3-44.8); MCH 28.3 pg (27.0-35.0); MCV 85.6 fL (80-100); MPV 10.9 fL (7.6-11.3); Monocytes % 6.6 % (3.3-12.3); Neutrophils % 71.3 % (41.7-73.7); Platelets 196 thou/uL (152-406); Red Cell Distribution Width 13.5 % (12.1-15.2)
[2023-10-06] MEDS: FAMOTIDINE 20 MG/2 ML VIAL IV ONE (12:47)
[2023-10-06] MEDS ORDERED: LIDOCAINE 1% MPF 5 ML VIAL ONE (13:03)
[2023-10-06] MEDS ORDERED: KETOROLAC 30 MG/ML INJ ONE (13:03)
[2023-10-06] MEDS ORDERED: MIDAZOLAM HCL 2 MG/2 ML INJ ONE (13:04)
[2023-10-06] MEDS ORDERED: propofoL 200 MG/20 ML VIAL IV ONE (13:04)
[2023-10-06] MEDS ORDERED: KETAMINE HCL IN 0.9 % NACL 50 MG/5 ML SYRINGE IV ONE (13:04)
[2023-10-06] MEDS ORDERED: FENTANYL CITR 100 MCG/2 ML ONE (13:04)
[2023-10-06] MEDS: CEFAZOLIN SODIUM 1 GM/VIAL ONE (13:38)
--- NOTE | 2023-10-06 14:00 | P.BOP ---
Preoperative diagnosis: tender prolapsed thrombosed hemorrhoid Postoperative diagnosis: same, internal and external hemorrhoid Primary procedure: EUA, anoscopy, rigid proctoscopy, External left posterolateral hemorrhoid Estimated blood loss: <10cc Specimen: external hemorrhoid Findings: thrombosed external hemorrhoid, multiple int and ext hemorrhoids Anesthesia: General Complications: None Drain(s): Other (surgicell) Transferred to: Recovery Room Condition: Good
[2023-10-06 15:10] VITALS: BP 134/82; TEMP 97.7
[2023-10-06] MEDS: CODEINE 30MG/APAP 300MG TAB ONE (15:21)
[2023-10-06 15:44] VITALS: O2SAT 98
--- NOTE | 2023-10-07 22:57 | DS ---
Date of Discharge: 10/06/2023 Diagnosis: Tender prolapsed thrombosed hemorrhoids, internal and external hemorrhoids. Procedures: Exam under anesthesia, anoscopy, rigid proctoscopy, external left posterolateral hemorrh oidectomy. Disposition: Home. Activity: As tolerated. No heavy lifting. Followup: Follow up in my office in 1 week; call for appointment [phone]. Sitz bath 4 times a day and after every bowel movement. His medications, we will call to the pharmacy. TOOTIE Voice ID: [id number] Report ID: [id number]
--- NOTE | 2023-10-07 23:08 | OP ---
Surgeon: Cody Partida MD Preoperative Diagnosis: Tender prolapsed thrombosed hemorrhoid. Postoperative Diagnoses: Tender prolapsed thrombosed hemorrhoid, internal and external hemorrhoids. Procedures: Exam under anesthesia, anoscopy, rigid proctoscopy, external left posterolateral hemorrh oidectomy. Estimated Blood Loss: Less than 10 cc. Specimen: External hemorrhoids. Findings: The patient has multiple internal and external hemorrhoids. Some of them are medium to la rge in size. The one we removed today was the one causing pain and discomfort, it was a thrombosed h emorrhoid, although he may have to consider in the future once we have better control of his pain and also once his area is wet cleaner machine to just proceed with the other hemorrhoids removal in the future. Anesthesia: General plus local. Complications: None. Indications: This is a case of a 33-year-old patient who comes to us with thrombosed prolapsed hemor rhoid that does not improve. He has been trying creams, sitz baths, multiple modalities, but still n ot getting better, so he was booked for EUA, anoscopy, proctoscopy, possible hemorrhoidectomy with be nefits, alternatives, and risks including, but not limited to, infection, bleeding, damage to adjacen t structures, anesthesia complication, anal stricture, anal incontinence, WI, even . He also un derstands this may not relieve any symptoms. He might need more than one surgical intervention. He understood and signed a consent. He also understands the importance of hemorrhoidal care and how he should be losing some weight, avoiding heavy lifting, avoiding constipation and follow up with his ga stroenterologist. He signed a consent. Procedure In Detail: The patient was brought to the operating room, placed in supine position. Anes thesia was done without complication. The patient was placed in lithotomy position with proper prote ction. Time-out was called. The area was prepped and draped in sterile fashion. We proceeded to do a rectal exam and then rigid proctoscopy, but we can only go about to 5 cm since the rectum was so f ull of stools. At that moment, I removed and then placed the anoscope, and we confirmed m ultiple hemorrhoids, internal and external. We found this thrombosed, hard, not reducible hemorrhoid . This was the one giving him pain and discomfort, so that was the one we were going to b e removing today. The rest of the hemorrhoids may have to be evaluated and treated in the future. A t that moment, I proceeded then to place once again the anoscope with a window on the side that ident ified this infected hemorrhoid, opened the anoderm, the hemorrhoidal plexus from the sphinc ter, transected that hemorrhoidal plexus with Harmonic scalpel. I irrigated subcutaneous tissue and then after that closed the anoderm with a chromic after making sure we have hemostasis. Surgicel was placed over the area. The specimen was sent to the pathologist. We injected some local anesthetic. Once again checked for blood. At this time, there was no bleeding. At that moment, I proceeded th en to sponge count and instrument counts correct and then sent the patient to recovery in stable condition. ROOSEVELT/ABDULKADIR Voice ID: [id number] Report ID: [id number]
== END 2023-10-06 15:37 | disposition home or self-care (01) ==
LOC: OR 10:16
PROVIDERS: ATTEND Surgery
PROC: 0DJD8ZZ Inspection of Lower Intestinal Tract, Via Natural or Artificial Opening Endoscopic (ICD-10-PCS; 2023-10-06)
PROC: 06BY0ZC Excision of Hemorrhoidal Plexus, Open Approach (ICD-10-PCS; principal; 2023-10-06 14:15)
DX: K64.5 Perianal venous thrombosis (principal); K64.8 Other hemorrhoids; K62.89 Other specified diseases of anus and rectum; F90.9 Attention-deficit hyperactivity disorder, unspecified type
CPT/HCPCS: 85025; 80048; 36415; 46999; 45300; J2704; J2001; J2250; J3010; J7120; J0690; 88304

== ENCOUNTER 2023-10-18 04:58 | Emergency (ER) | payer BC ==
--- OUTSIDE RECORDS SUMMARY | 2023-10-18 05:03 | XMS REPORT | Continuity of Care Document ---
Author Name Unknown Address [address] [facility] Jose Carlos. [address] [place] [address] [facility] thconnect Address [address] [facility]. [address] [place] [address] Care Team Providers Care Retinal Surgeon Name Role Phone Diogo BENDER, Gisella De Paz Primary Care Physician MD JESUS Attending Clinician Unavailab JOHN Moser Attending Clinician Unavailable PIPPA REYNOSO Attending Clinician Unavailable JULIANA BAIRD Attending Clinician Unavailable JULIANA BAIRD Attending Clinician Unavailable Juliana Baird DO Attending Clinician [phone] Attending Clinician Unavailable RADHA HERNANDES Attending Clinician Unavailable WILLIAN PEREZ Attending Clinician Unavailable WILLIAN PEREZ Attending Clinician Unavailable LEEANN MCCOY Attending Clinician Unavailable [facility] Attending Clinician Un available EbraLeeann Emmanuel Attending Clinician [phone] Unknown, Attending Attending Clinician Unavailab NO Guido Attending Clinician Unavailable No Nur MD Attending Clinician [phone] Kayla LIVINGSTON Attending Clinician Unavailable Darryl Owens MD Attending Clinician [phone] Kayla Scherer Attending Clinician [phone] JENY HAIDER Attending Clinician Unavailable INDIA DICKEY Attending Clinician Unavailab rica Dickey DOIndia Attending Clinician +[phone] GISELLA LIND Attending Clinician Unava ilBANDAR Wills Attending Clinician Unavailable Bandar Richardson DO Attending Clinician +[phone] LINDA SANFORD Attending Clinician Unavailab rica Chaoman SUPPORT SERVICES TECH, Linda Merritt Attending Clinician +[phone] SHAE GILLESPIE Attending Clinician Unavailable Shae Gillespie MD Attending Clinician +[phone] IVONNE SHULTZ Attending Clinician Unavailable Ivonne Shultz NP Attending Clinician +[phone] KACIE QUIROZ Attending Clinician Unavailable Doctor Unassigned, Baylis Attending Clinician U navailHAYDEN Marshall Attending Clinician Unavailable Jose Guadalupe Meraz MD Attending Clinician [phone] Hayden Braswell MD Attending Clinician [phone] CECIL CHATMAN Attending Clinician Unavailable MARAL GAMBLE Attending Clinician Unavailab Maral Wilson DO Attending Clinician +[phone] KAIN RAJPUT Attending Clinician Unavailable Regulo SUPPORT SERVICES TECHKain Attending Clinician +[phone] IGGY WELLER Attending Clinician Unavaila edelmira Weller ACNIggy Jaramillo Attending Clinician + [phone] MIHAI HAHN Attending Clinician Unavailable HARDY ZAVALA Attending Clinician UnavailHardy Casillas MD Attending Clinician + [phone] PARVEEN Attending Clinician Unavailable Diogo BENDER, Gisella De Paz Attending Clinician [phone] INDIA DICKEY Admitting Clinician Unavailab BANDAR Pace Admitting Clinician Unavailable IVONNE SHULTZ Admitting Clinician Unavailable HAYDEN BRASWELL Admitting Clinician Unavailable Hayden Braswell MD Admitting Clinician PARVEEN Admitting Clinician Unavailable Kayla LIVINGSTON Admitting Clinician Unavailable Payers Payer Name Policy Type Policy Number Effective Date Expirati on Date Source [facility] 9 [id number] 2023 00:00:00 [facility] [id number] 00:00:00 Problems Condition Name Condition Details Condition Category Status Onset Date Resolution Date Last Treatment Date Treating Clinician Comments Source Chest pain Chest pain Disease Active 2022-02 00:00: 00 [facility] Obesity (BMI 30-39.9) Obesity (BMI 30-39.9) Disease Active 2022-02 00:00: 00 [facility] No known active problems No known active problems Disease [facility] Allergies, Adverse Reactions, Alerts Allergy Name Allergy Type Status Severity Reaction(s) Onset Date Inactive Date Treating Clinician Comments Source NO KNOWN ALLERGIE S Drug Class Active [facility] Social History Social Habit Start Date Stop Date Quantity Comments Source Gender identity [facility] Sexual orientation U [facility] History of tobacco use Passive smoker [facility] Alcoholic beverage intake 2023-07-12 00:00:00 2023-07-12 00:00:00 Current drinker of alcohol (finding) [facility] Alcohol intake 2023-05-31 00:00:00 2023-05-31 00:00:00 Current drinker of alcohol (finding) [facility] History of Social function 2022-11-20 00:00:00 2022-11-20 00:00:00 [facility] Tobacco use and exposure 2022-11-19 00:00:00 2022-11-19 00:00:00 Smokeless tobacco non-user [facility] Tobacco Comment 2022-11-19 00:00:00 2022-11-19 00:00:00 Patient states that he uses vapes with nicotine in replace of cigarettes [facility] Alcohol Comment 2022-11-19 00:00:00 2022-11-19 00:00:00 socially (once every few months) [facility] Exposure to SARS-CoV-2 (event) 2022-02-18 00:00:00 2022-02-28 15:26:00 Not sure [facility] Sex assigned at 1990 00:00:00 1990 00:00:00 [facility] Smoking Status Start Date Stop Date Source Tobacco smoking consumption unknown [facility] Smokes tobacco daily 2022-09-06 00:00:00 Joseline Chapman Medications Ordered Medication Name Filled Medication Name Start Date Stop Date Current Medication? Ordering Clinician Indication Dosage Frequency Signature (SIG) Comments Components Source linaCLOtide (Linzess) 145 MCG oral Capsule 09-30 00:00: 00 Yes [id number] 145ug QD Take 1 capsule (145 mcg total) by mouth daily. Joseline trejo hydrocortis one 25 mg suppository 09-30 00:00: 00 Yes [id number] 25mg Insert 1 Suppositor y into rectum in the morning and 1 Suppositor y in the evening. [facility] dibucaine 1 % ointment 09-30 00:00: 00 Yes [id number] Apply to area(s) 3 (three) times daily as needed for Pain (scale 4-6) or Pain (scale 7-10). [facility] Pantoprazol e Sodium 40 MG oral Tablet Delayed Response -16 00:00: 00 Yes [id number] 40mg QD take 1 tablet by mouth every day Joseline trejo dexamethaso ne sod phos PF injection 10 mg 08-11 17:30: 00 08-11 17:20 :00 No 10mg 10 mg, Intramuscu lar, ONCE, 1 dose, On Fri08/12/23 at 1230, 1 mL [facility] ketorolac (TORADOL) injection 30 mg 08-11 17:30: 00 08-11 17:22 :00 No 30mg 30 mg, Intramuscu lar, ONCE, 1 dose, On Fri08/12/23 at 1230, POLA [facility] ibuprofen (IBU) tablet 800 mg 06-28 00:45: 00 06-28 00:34 :00 No 800mg 800 mg, Oral, ONCE, 1 dose, On 06/28/23 at 1945, POLA [facility] rabies immune globulin (PF) (HYPERRAB (PF)) injection 2,481 Units 06-27 23:45: 00 06-27 23:51 :00 No 20U/kg 2,481 Units (rounded from 2,480 Units = 20 Units/kg ?124 kg), Intramuscu lar, ONCE, 1 dose, On 06/28/23 at 1845, Routine [facility] mupirocin 2 % ointment 06-27 00:00: 00 Yes [id number] Apply to area(s) 3 (three) times daily. [facility] HYDROcodone -acetaminop hen (NORCO 5) 5-325 mg tablet 1 tablet 05-30 22:15: 00 05-30 22:36 :00 No 1{tbl} 1 tablet, Oral, ONCE, 1 dose, On 05/31/23 at 1715, [facility] Valacyclovi r HCl (Valtrex) 500 MG oral Tablet 05-23 00:00: 00 09-30 00:00 :00 No [id number] 500mg Q.5D Take 1 tablet (500 mg total) by mouth 2 times daily. Joseline trejo methylPREDN ISolone 4 MG oral Tablet Therapy Pack 05-22 00:00: 00 09-30 00:00 :00 No [id number] 1{lam} Take 1 lam by mouth See Admin Instructio ns Use as directed. Joseline trejo Celecoxib (CeleBREX) 200 MG oral Capsule 05-22 00:00: 00 09-30 00:00 :00 No [id number] 200mg Q.5D Take 1 capsule (200 mg total) by mouth 2 times daily. Joseline trejo Trazodone HCl 150 MG oral Tablet 2024-0 2-03 00:00: 00 Yes [id number] 150mg QD Take 1 tablet (150 mg total) by mouth nightly. Joseline trejo benzonatate 100 mg capsule 03-18 00:00: 00 Yes [id number] 100mg Take 1 capsule by mouth 3 (three) times daily as needed for Cough. [facility] azithromyci n 250 mg tablet 03-18 00:00: 00 Yes [id number] 250mg Take 1 tablet by mouth in the morning. [facility] methylPREDN ISolone (MEDROL, LAM,) 4 mg tablets 03-18 00:00: 00 Yes [id number] Take by mouth SEE-INSTRU CTIONS. follow package directions [facility] ibuprofen (IBU) tablet 600 mg 03-01 02:00: 00 03-01 01:58 :00 No 600mg 600 mg, Oral, ONCE, 1 dose, On Fri02/28/23 at 2000, POLA [facility] benzonatate 100 mg capsule 02-28 00:00: 00 Yes [id number] 100mg Take 1 capsule by mouth 3 (three) times daily as needed for Cough. [facility] Albuterol HFA 108 (90 Base) MCG/ACT IN [...] 02-28 00:00: 00 03-06 05:59 :00 No [id number] 4mg Take 1 tablet by mouth every 8 (eight) hours as needed for Nausea and Vomiting (N/V) for up to 5 days. [facility] cefTRIAXone (ROCEPHIN) injection 500 mg 2022-02 08:30: 00 Yes 500mg 500 mg, Intramuscu lar, Q24H, First dose on 01/11/23 at 0230, Until Discontinu ed, POLA
Re ason for Anti-Infec tive: Empiric Therapy for Suspected Infection< br>Empiric Therapy Site: Urine
D uration of therapy: Once (ED) [facility] acetaminoph en (TYLENOL) tablet 650 mg 2022-02 07:30: 00 01-11 07:32 :00 No 650mg 650 mg, Oral, ONCE, 1 dose, On 01/11/23 at 0130, POLA [facility] Doxycycline Hyclate 100 MG oral Capsule 2022-02 00:00: 00 05-22 00:00 :00 No 100mg Take 1 capsule (100 mg total) by mouth 2 times daily. Joseline trejo ondansetron 4 mg disintegrat ing tablet 2022-02 00:00: 00 02-28 00:00 :00 No [id number] 4mg Take 1 tablet by mouth every 8 (eight) hours as needed for Nausea and Vomiting (N/V). [facility] Pantoprazol e Sodium 40 MG oral Tablet Delayed Response 2022-02 00:00: 00 Yes [id number] 40mg TAKE 1 TABLET BY MOUTH EVERY DAY Joseline trejo sulfur hexafluorid e microsphr (LUMASON) injection 5 mL 2022-02 16:15: 00 11-20 16:15 :00 No [id number] 5mL 5 mL, Intravenou s, ONCE, 1 dose, On Fri11/20/22 at 1115, Routine
managing member approving Restricted medication : HAYDEN BRASWELL [facility] pantoprazol e (PROTONIX) EC tablet 40 mg 2022-02 14:00: 00 Yes 40mg 40 mg, Oral, DAILY, First dose on Fri11/20/22 at 0900, Until Discontinu ed, Routine [facility] sennosides- docusate sodium (SENOKOT-S) 8.6-50 mg per tablet 1 tablet 2022-02 14:00: 00 Yes 1{tbl} 1 tablet, Oral, DAILY, First dose on Fri11/20/22 at 0900, Until Discontinu ed, Routine [facility] HYDROcodone -acetaminop hen (NORCO 5) 5-325 mg tablet 1 tablet 2022-02 03:15: 00 11-20 02:44 :00 No 1{tbl} 1 tablet, Oral, ONCE, 1 dose, On Fri11/19/22 at 2215, Routine [facility] ondansetron (ZOFRAN (PF)) injection 4 mg 2022-02 03:09: 48 Yes 4mg 4 mg, Slow IV Push, Q6HPRN, Nausea and Vomiting (N/V), Starting on Fri11/19/22 at 2209
Do ses of ondansetro n 16 mg and above need to be administer ed via IV piggyback. For Dose >=24mg ECG monitoring is advisable.
[facility] heparin (porcine) injection 5,000 Units 2022-02 03:00: 00 Yes 5000U 5,000 Units, Subcutaneo us, Q8H, First dose on Fri11/19/22 at 2200, Until Discontinu ed, Routine [facility] Lidocaine (LIDOCARE) 4 % patch 1 Patch 2022-02 02:30: 00 11-20 14:44 :00 No 1{patch } 1 Patch, Topical, Administer over 12 Hours, ONCE, 1 dose, On Fri11/19/22 at 2130, Routine [facility] sucralfate (CARAFATE) tablet 1 g 2022-02 02:00: 00 Yes 1g 1 g, Oral, AC+HS, First dose on Fri11/19/22 at 2100, Until Discontinu ed, Routine [facility] acetaminoph en (TYLENOL) tablet 650 mg 2022-02 01:22: 59 Yes 650mg 650 mg, Oral, Q6HPRN, Starting on Fri11/19/22 at 2021, Until Discontinu ed, Routine, Pain (scale 1-3) [facility] sucralfate 1 gram tablet 2022-02 0-04 00:00: 00 12-05 04:59 :00 No [id number] 1g Take 1 tablet by mouth before meals and at bedtime for 14 days. [facility] Ondansetron (ZOFRAN) 4 MG oral TABLET DISPERSIBLE 2022-02 0-03 00:00: 00 09-30 00:00 :00 No [id number] 4mg [id number] 3D Take 1 tablet (4 mg total) by mouth every 8 hours as needed for nausea. Joseline trejo Pantoprazol e Sodium 40 MG oral Tablet Delayed Response 10-16 00:00: 00 Yes [id number] 40mg TAKE 1 TABLET BY MOUTH EVERY DAY Joseline trejo Metronidazo le 500 MG oral Tablet 10-15 00:00: 00 Yes [id number] 500mg Take 1 tablet (500 mg total) by mouth 2 times daily. Joseline trejo Valacyclovi r HCl (Valtrex) 500 MG oral Tablet 10-15 00:00: 00 Yes [id number] 500mg Take 1 tablet (500 mg total) by mouth 2 times daily. Joseline trejo sulfamethox azole-trime thoprim 800-160 mg per tablet 09-28 00:00: 00 10-06 04:59 :00 No [id number] 1{tbl} Take 1 tablet by mouth every 12 (twelve) hours for 7 days. [facility] ketorolac (TORADOL) injection 15 mg 09-25 14:45: 00 09-25 13:56 :00 No 15mg 15 mg, Slow IV Push, ONCE, 1 dose, On Fri09/25/22 at 0945, POLA [facility] ondansetron (ZOFRAN (PF)) injection 4 mg 09-25 12:45: 09-25 12:43 :00 No 4mg 4 mg, Slow IV Push, ONCE, 1 dose, On Fri09/25/22 at 0745, POLA [facility] maalox:diph enhydrAMINE :lidocaine 2 % viscous 1:1:1 (FIRST-MOUT HWASH BLM) oral suspension 15 mL 09-25 12:45: 00 09-25 12:42 :00 No 15mL 15 mL, Oral, ONCE, 1 dose, On Fri09/25/22 at 0745, Routine [facility] proMETHazin e 25 mg tablet 09-25 00:00: 00 11-20 00:00 :00 No [id number] 25mg Take 1 tablet by mouth every 6 (six) hours as needed for Nausea and Vomiting (N/V). [facility] pantoprazol e 40 mg EC tablet 09-06 00:00: 00 Yes 40mg Take 1 tablet by mouth. [facility] Hydrocortis one Acetate (Hemmorex-H C) 25 MG rectal Suppository 09-06 00:00: 00 05-21 00:00 :00 No [id number] 25mg Apply 1 suppositor y (25 mg total) rectally 2 times daily Joseline trejo NIFEdipine 0.2 % in Lidocaine 5 % 60 g compounded rectal ointment 09-06 00:00: 00 05-21 00:00 :00 No [id number] Apply 1 applicatio n. rectally 2 times daily (Apply pea-sized amount to fingertip and then apply just inside anus) Joseline trejo Mupirocin (BACTROBAN) 2 % apply externally Ointment 08-04 00:00: 00 09-30 00:00 :00 No [id number] 3D Apply 1 applicatio n. topically 3 times daily Joseline trejo mupirocin 2 % ointment 08-03 00:00: 00 Yes [id number] Apply to area(s) 3 (three) times daily. [facility] cephALEXin (KEFLEX) 500 mg capsule 08-03 00:00: 00 08-11 04:59 :00 No [id number] 500mg Take 1 capsule by mouth 4 (four) times daily for 7 days. [facility] doxycycline hyclate 100 mg capsule 08-03 00:00: 00 08-11 04:59 :00 No [id number] 100mg Take 1 capsule by mouth in the morning and 1 capsule in the evening. Do all this for 7 days. [facility] traZODone 150 mg tablet 06-28 00:00: 00 Yes 150mg Take 1 tablet by mouth. [facility] meclizine (TRAVEL-EAS E (MECLIZINE) ) tablet 25 mg 02-28 21:15: 00 02-28 21:26 :00 No 25mg 25 mg, Oral, ONCE, 1 dose, On Fri02/28/22 at 1515, POLA [facility] meclizine 25 mg tablet 02-28 00:00: 00 09-28 00:00 :00 No 25mg Take 1 tablet by mouth. [facility] predniSONE 20 MG oral tablet 02-22 00:00: 00 Yes [id number] 20mg Take 1 tablet (20 mg total) by mouth daily Joseline trejo Ondansetron HCl 4 MG oral Tablet 02-22 00:00: 00 11-19 00:00 :00 No [id number] 4mg [id number] 3D Take 1 tablet (4 mg total) by mouth every 8 hours as needed for nausea Joseline trejo Amoxicillin 500 MG oral Capsule 02-19 00:00: 00 Yes [id number] TAKE 1 CAPSULE BY MOUTH TWICE A DAY IN THE MORNING AND EVENING FOR 10 DAYS Joseline trejo meclizine (TRAVEL-EAS E (MECLIZINE) ) tablet 25 mg 2021-02 18:00: 00 02-13 18:02 :00 No 25mg 25 mg, Oral, ONCE, 1 dose, On Fri02/13/22 at 1200, POLA [facility] amoxicillin 500 mg capsule 2021-02 00:00: 00 02-24 05:59 :00 No [id number] 500mg Take 1 capsule by mouth in the morning and 1 capsule in the evening. Do all this for 10 days. [facility] meclizine 25 mg tablet 2021-02 00:00: 00 02-19 05:59 :00 No [id number] 25mg Take 1 tablet by mouth 3 (three) times daily as needed for Dizziness for up to 5 days. [facility] Trazodone HCl 150 MG oral Tablet 08-02 00:00: 00 Yes 150mg Take 1 tablet (150 mg total) by mouth nightly Joseline Levina l magnesium sulfate in water 2 gram/50 mL (4 %) infusion 2 g 04-18 20:15: 00 04-18 20:18 :00 No 2g 2 g, IV Piggyback, ONCE, 1 dose, On Fri04/18/21 at 1415, Routine [facility] iopamidol (ISOVUE 370-500 mL) injection 120 mL 04-18 19:15: 00 04-18 17:55 :00 No [id number] 120mL 120 mL, Intravenou s, ONCE, 1 dose, On Fri04/18/21 at 1315, Routine [facility] Trazodone HCl 150 MG oral Tablet 03-15 14:59: 18 Yes 150mg Take 150 mg by mouth nightly Joseline Bean Immunizations Ordered Immunization Name Filled Immunization Name Date Status Comments Source Human Rabies Vaccine-PCEC Unknown Completed Joseline Bean - External Human Rabies Vaccine-PCEC Unknown Completed Joseline Bean - External Human Rabies Vaccine-PCEC Unknown Completed Joseline Landa External Td- Tetanus & Diphtheria Vaccine (age 7+ years) Unknown Completed Joseline sanches - External Human Rabies Vaccine From Chicken Fibroblast Culture (JOCELYN) Unknown Completed [facility] TD Pres-Free Unknown Completed [facility] Human Rabies Vaccine From Chicken Fibroblast Culture (RABAVERT) Unknown Completed [facility] TD Pres-Free Unknown Completed [facility] Human Rabies Vaccine From Chicken Fibroblast Culture (RABAVERT) Unknown Completed [facility] TD Pres-Free Unknown Completed [facility] Human Rabies Vaccine From Chicken Fibroblast Culture (RABAVERT) Unknown Completed [facility] TD Pres-Free Unknown Completed [facility] Human Rabies Vaccine From Chicken Fibroblast Culture (RABAVERT) Unknown Completed [facility] TD Pres-Free Unknown Completed [facility] SARS-COV-2 COVID-19 VACCINE - (MODERNA) Unknown Completed [facility] SARS-COV-2 COVID-19 VACCINE - (MODERNA) Unknown Completed [facility] Human Rabies Vaccine From Chicken Fibroblast Culture (RABAVERT) Unknown Completed [facility] Human Rabies Vaccine From Chicken Fibroblast Culture (RABAVERT) Unknown Completed [facility] TD Pres-Free Unknown Completed [facility] SARS-COV-2 COVID-19 VACCINE - (MODERNA) Unknown Completed [facility] SARS-COV-2 COVID-19 VACCINE - (MODERNA) Unknown Completed [facility] Human Rabies Vaccine From Chicken Fibroblast Culture (RABAVERT) Unknown Completed [facility] Human Rabies Vaccine From Chicken Fibroblast Culture (RABAVERT) Unknown Completed [facility] TD Pres-Free Unknown Completed [facility] SARS-COV-2 COVID-19 VACCINE - (MODERNA) Unknown Completed [facility] SARS-COV-2 COVID-19 VACCINE - (MODERNA) Unknown Completed [facility] Human Rabies Vaccine From Chicken Fibroblast Culture (RABAVERT) Unknown Completed [facility] Human Rabies Vaccine From Chicken Fibroblast Culture (RABAVERT) Unknown Completed [facility] Human Rabies Vaccine From Chicken Fibroblast Culture (RABAVERT) Unknown Completed [facility] TD Pres-Free Unknown Completed [facility] SARS-COV-2 COVID-19 VACCINE - (MODERNA) Unknown Completed [facility] SARS-COV-2 COVID-19 VACCINE - (MODERNA) Unknown Completed [facility] Human Rabies Vaccine From Chicken Fibroblast Culture (RABAVERT) Unknown Completed [facility] Human Rabies Vaccine From Chicken Fibroblast Culture (RABAVERT) Unknown Completed [facility] Human Rabies Vaccine From Chicken Fibroblast Culture (RABAVERT) Unknown Completed [facility] TD Pres-Free Unknown Completed [facility] SARS-COV-2 COVID-19 VACCINE - (MODERNA) Unknown Completed [facility] SARS-COV-2 COVID-19 VACCINE - (MODERNA) Unknown Completed [facility] Human Rabies Vaccine From Chicken Fibroblast Culture (RABAVERT) Unknown Completed [facility] Human Rabies Vaccine From Chicken Fibroblast Culture (RABAVERT) Unknown Completed [facility] Vital Signs Vital Name Observation Time Observation Value Comments S ource Systolic blood pressure 2023-10-01 20:58:00 144 mm[Hg] [facility] Diastolic blood pressure 2023-10-01 20:58:00 89 mm[Hg] [facility] Heart rate 2023-10-01 20:58:00 84 /min [facility] Body temperature 2023-10-01 20:58:00 36.72 Shivani [facility] Respiratory rate 2023-10-01 20:58:00 14 /min [facility] Body height 2023-10-01 20:58:00 182.9 cm [facility] Body weight 2023-10-01 20:58:00 122.471 kg [facility] BMI 2023-10-01 20:58:00 36.62 kg/m2 [facility] Oxygen saturation in Arterial blood by Pulse oximetry 2023-10-01 20:58:00 99 /min [facility] Systolic blood pressure 2023-10-01 18:36:00 120 mm[Hg] Joseline Knowles ld - External Diastolic blood pressure 2023-10-01 18:36:00 76 mm[Hg] Joseline Knowles ld - External Heart rate 2023-10-01 18:36:00 87 /min Chelsie Bean - External Body temperature 2023-10-01 18:36:00 36.22 Shivani Joseline Bean - External Respiratory rate 2023-10-01 18:36:00 15 /min Joseline Bean - External Body height 2023-10-01 18:36:00 182.9 cm Melly Bean - External Body weight 2023-10-01 18:36:00 123.378 kg Melly ey ybold - External BMI 2023-10-01 18:36:00 36.89 kg/m2 Melly cristiano Millsybold - External Systolic blood pressure 2023-08-12 16:37:00 125 mm[Hg] [facility] Diastolic blood pressure 2023-08-12 16:37:00 92 mm[Hg] [facility] Heart rate 2023-08-12 16:37:00 93 /min [facility] Body temperature 2023-08-12 16:37:00 37 Shivani [facility] Respiratory rate 2023-08-12 16:37:00 18 /min [facility] Body height 2023-08-12 16:37:[address] [facility] Body weight 2023-08-12 16:37:00 122.471 kg [facility] BMI 2023-08-12 16:37:00 36.62 kg/m2 [facility] Oxygen saturation in Arterial blood by Pulse oximetry 2023-08-12 16:37:00 96 /min [facility] Systolic blood pressure 2023-07-12 16:23:00 109 mm[Hg] [facility] Diastolic blood pressure 2023-07-12 16:23:00 74 mm[Hg] [facility] Heart rate 2023-07-12 16:23:00 61 /min [facility] Body temperature 2023-07-12 16:23:00 36.78 Shivani [facility] Respiratory rate 2023-07-12 16:23:00 12 /min [facility] Body weight 2023-07-12 16:23:00 122.925 kg [facility] BMI 2023-07-12 16:23:00 36.75 kg/m2 [facility] Oxygen saturation in Arterial blood by Pulse oximetry 2023-07-12 16:23:00 97 /min [facility] Systolic blood pressure 2023-07-05 17:17:00 135 mm[Hg] [facility] Diastolic blood pressure 2023-07-05 17:17:00 82 mm[Hg] [facility] Heart rate 2023-07-05 17:17:00 80 /min [facility] Body temperature 2023-07-05 17:17:00 36.56 Shivani [facility] Respiratory rate 2023-07-05 17:17:00 18 /min [facility] Oxygen saturation in Arterial blood by Pulse oximetry 2023-07-05 17:17:00 100 /min [facility] Systolic blood pressure 2023-07-01 23:15:00 130 mm[Hg] [facility] Diastolic blood pressure 2023-07-01 23:15:00 87 mm[Hg] [facility] Heart rate 2023-07-01 23:15:00 83 /min Unive [facility] Body temperature 2023-07-01 23:15:00 37.33 Shivani [facility] Respiratory rate 2023-07-01 23:15:00 14 /min [facility] Body height 2023-07-01 23:15:00 182.9 cm [facility] Body weight 2023-07-01 23:15:00 123.832 kg [facility] BMI 2023-07-01 23:15:00 37.03 kg/m2 [facility] Oxygen saturation in Arterial blood by Pulse oximetry 2023-07-01 23:15:00 97 /min [facility] Systolic blood pressure 2023-06-29 00:34:00 124 mm[Hg] [facility] Diastolic blood pressure 2023-06-29 00:34:00 85 mm[Hg] [facility] Heart rate 2023-06-29 00:34:00 74 /min Unive [facility] Body temperature 2023-06-29 00:34:00 37.06 Shivani [facility] Oxygen saturation in Arterial blood by Pulse oximetry 2023-06-29 00:34:00 96 /min [facility] Respiratory rate 2023-06-28 23:48:00 14 /min [facility] Body weight 2023-06-28 22:32:00 123.968 kg [facility] BMI 2023-06-28 22:32:00 37.07 kg/m2 [facility] Body height 2023-06-28 21:46:00 182.9 cm [facility] Systolic blood pressure 2023-05-31 22:04:00 145 mm[Hg] [facility] Diastolic blood pressure 2023-05-31 22:04:00 85 mm[Hg] [facility] Heart rate 2023-05-31 22:04:00 84 /min [facility] Body temperature 2023-05-31 22:04:00 36.61 Shivani [facility] Respiratory rate 2023-05-31 22:04:00 16 /min [facility] Body height 2023-05-31 22:04:00 182.9 cm [facility] Body weight 2023-05-31 22:04:00 123.832 kg [facility] BMI 2023-05-31 22:04:00 37.03 kg/m2 [facility] Oxygen saturation in Arterial blood by Pulse oximetry 2023-05-31 22:04:00 99 /min [facility] Systolic blood pressure 2023-05-23 14:15:00 126 mm[Hg] [...] Systolic blood pressure 2023-03-18 18:37:00 116 mm[Hg] [facility] Diastolic blood pressure 2023-03-18 18:37:00 80 mm[Hg] [facility] Heart rate 2023-03-18 18:37:00 87 /min Unive [facility] Body temperature 2023-03-18 18:37:00 36.83 Shivani [facility] Respiratory rate 2023-03-18 18:37:00 18 /min [facility] Body weight 2023-03-18 18:37:[address] [facility] BMI 2023-03-18 18:37:00 35.94 kg/m2 [facility] Oxygen saturation in Arterial blood by Pulse oximetry 2023-03-18 18:37:00 99 /min [facility] Systolic blood pressure 2023-03-01 01:45:00 141 mm[Hg] [facility] Diastolic blood pressure 2023-03-01 01:45:00 86 mm[Hg] [facility] Heart rate 2023-03-01 01:45:00 92 /min Unive [facility] Body temperature 2023-03-01 01:45:00 37.28 Shivani [facility] Respiratory rate 2023-03-01 01:45:00 16 /min [facility] Body height 2023-03-01 01:45:00 182.9 cm [facility] Body weight 2023-03-01 01:45:00 120.203 kg [facility] BMI 2023-03-01 01:45:00 35.94 kg/m2 [facility] Oxygen saturation in Arterial blood by Pulse oximetry 2023-03-01 01:45:00 100 /min [facility] Systolic blood pressure 2023-01-25 10:30:00 127 mm[Hg] [facility] Diastolic blood pressure 2023-01-25 10:30:00 84 mm[Hg] [facility] Heart rate 2023-01-25 10:30:00 77 /min Unive [facility] Body temperature 2023-01-25 10:30:00 36.67 Shivani [facility] Respiratory rate 2023-01-25 10:30:00 18 /min [facility] Body height 2023-01-25 10:30:00 182.9 cm [facility] Body weight 2023-01-25 10:30:00 120.203 kg [facility] BMI 2023-01-25 10:30:00 35.94 kg/m2 [facility] Oxygen saturation in Arterial blood by Pulse oximetry 2023-01-25 10:30:00 99 /min [facility] Systolic blood pressure 2023-01-11 06:54:00 120 mm[Hg] [facility] Diastolic blood pressure 2023-01-11 06:54:00 69 mm[Hg] [facility] Heart rate 2023-01-11 06:54:00 61 /min Unive [facility] Body temperature 2023-01-11 06:54:00 36.33 Shivani [facility] Oxygen saturation in Arterial blood by Pulse oximetry 2023-01-11 06:54:00 98 /min [facility] Respiratory rate 2023-01-11 03:19:00 18 /min [facility] Body height 2023-01-11 03:19:00 182.9 cm [facility] Body weight 2023-01-11 03:19:00 122.471 kg [facility] BMI 2023-01-11 03:19:00 36.62 kg/m2 [facility] Systolic blood pressure 2022-12-02 13:34:00 126 mm[Hg] [facility] Diastolic blood pressure 2022-12-02 13:34:00 90 mm[Hg] [facility] Heart rate 2022-12-02 13:34:00 77 /min Unive [facility] Body temperature 2022-12-02 13:34:00 37 Shivani [facility] Respiratory rate 2022-12-02 13:34:00 18 /min [facility] Body height 2022-12-02 13:34:00 182.9 cm [facility] Body weight 2022-12-02 13:34:[address] [facility] BMI 2022-12-02 13:34:00 35.94 kg/m2 [facility] Oxygen saturation in Arterial blood by Pulse oximetry 2022-12-02 13:34:00 100 /min [facility] Body height 2022-11-20 20:00:[address] [facility] Systolic blood pressure 2022-11-20 16:50:00 124 mm[Hg] [facility] Diastolic blood pressure 2022-11-20 16:50:00 83 mm[Hg] [facility] Heart rate 2022-11-20 16:50:00 61 /min Unive [facility] Body temperature 2022-11-20 16:50:00 36.61 Shivani [facility] Respiratory rate 2022-11-20 16:50:00 20 /min [facility] Oxygen saturation in Arterial blood by Pulse oximetry 2022-11-20 16:50:00 98 /min [facility] Body weight 2022-11-20 01:00:00 122 kg [facility] BMI 2022-11-20 01:00:00 36.48 kg/m2 [facility] Systolic blood pressure 2022-09-28 14:31:00 136 mm[Hg] [facility] Diastolic blood pressure 2022-09-28 14:31:00 97 mm[Hg] [facility] Heart rate 2022-09-28 14:31:00 76 /min [facility] Body temperature 2022-09-28 14:31:00 36.67 Shivani [facility] Respiratory rate 2022-09-28 14:31:00 18 /min [facility] Body height 2022-09-28 14:31:00 182.9 cm [facility] Body weight 2022-09-28 14:31:[address] [facility] BMI 2022-09-28 14:31:00 36.48 kg/m2 [facility] Oxygen saturation in Arterial blood by Pulse oximetry 2022-09-28 14:31:00 98 /min [facility] Systolic blood pressure 2022-09-25 14:52:21 125 mm[Hg] [facility] Diastolic blood pressure 2022-09-25 14:52:21 88 mm[Hg] [facility] Heart rate 2022-09-25 14:52:21 72 [facility] Body temperature 2022-09-25 14:52:21 36.83 Shivani [facility] Respiratory rate 2022-09-25 14:52:21 16 /min [facility] Oxygen saturation in Arterial blood by Pulse oximetry 2022-09-25 14:52:21 96 /min [facility] Body height 2022-09-25 12:10:00 182.9 cm [facility] Body weight 2022-09-25 12:10:00 122.018 kg [facility] BMI 2022-09-25 12:10:00 36.48 kg/m2 [facility] Systolic blood pressure 2022-09-06 18:47:00 124 [...] External Heart rate 2022-08-04 01:30:00 89 /min [facility] Body temperature 2022-08-04 01:30:00 37.11 Shivani [facility] Respiratory rate 2022-08-04 01:30:00 18 /min [facility] Body height 2022-08-04 01:30:00 175.3 cm [facility] Body weight 2022-08-04 01:30:00 106.595 kg [facility] BMI 2022-08-04 01:30:00 34.70 kg/m2 [facility] Oxygen saturation in Arterial blood by Pulse oximetry 2022-08-04 01:30:00 100 /min [facility] Systolic blood pressure 2022-08-04 01:30:00 146 mm[Hg] [facility] Diastolic blood pressure 2022-08-04 01:30:00 105 mm[Hg] [facility] Systolic blood pressure 2022-07-12 18:18:00 118 mm[Hg] [...] Body temperature 2022-03-04 21:25:00 36.89 Shivani [facility] - External Respiratory rate 2022-03-04 21:25:00 16 /min Joseline Bean - External Body height 2022-03-04 21:25:00 182.9 cm Melly Bean - External Body weight 2022-03-04 21:25:00 106.595 kg Melly Kohliold - External BMI 2022-03-04 21:25:00 31.87 kg/m2 Melly Bean - External Systolic blood pressure 2022-02-28 20:48:00 139 mm[Hg] [facility] Diastolic blood pressure 2022-02-28 20:48:00 92 mm[Hg] [facility] Heart rate 2022-02-28 20:48:00 78 /min Unive [facility] Body temperature 2022-02-28 20:48:00 36.89 Shivani [facility] Respiratory rate 2022-02-28 20:48:00 22 /min [facility] Body height 2022-02-28 20:48:00 182.9 cm [facility] Body weight 2022-02-28 20:48:00 106.595 kg [facility] BMI 2022-02-28 20:48:00 31.87 kg/m2 [facility] Oxygen saturation in Arterial blood by Pulse oximetry 2022-02-28 20:48:00 99 /min [facility] Systolic blood pressure 2022-02-13 17:19:00 146 mm[Hg] [facility] Diastolic blood pressure 2022-02-13 17:19:00 85 mm[Hg] [facility] Heart rate 2022-02-13 17:19:00 90 /min Unive [facility] Body temperature 2022-02-13 17:19:00 36.61 Shivani [facility] Respiratory rate 2022-02-13 17:19:00 16 /min [facility] Body height 2022-02-13 17:19:00 182.9 cm [facility] Body weight 2022-02-13 17:19:00 106.595 kg [facility] BMI 2022-02-13 17:19:00 31.87 kg/m2 [facility] Oxygen saturation in Arterial blood by Pulse oximetry 2022-02-13 17:19:00 100 /min [facility] Systolic blood pressure 2021-04-18 20:00:00 119 mm[Hg] [facility] Diastolic blood pressure 2021-04-18 20:00:00 72 mm[Hg] [facility] Heart rate 2021-04-18 20:00:00 72 /min [facility] Respiratory rate 2021-04-18 20:00:00 21 /min [facility] Oxygen saturation in Arterial blood by Pulse oximetry 2021-04-18 20:00:00 97 /min [facility] Body temperature 2021-04-18 16:29:00 36.44 Shivani [facility] Body height 2021-04-18 16:29:00 182.9 cm [facility] Body weight 2021-04-18 16:29:00 107.956 kg [facility] BMI 2021-04-18 16:29:00 32.28 kg/m2 [facility] Body height 2021-03-15 21:05:00 182.9 cm Melly ey Seybold Body weight 2021-03-15 21:05:00 104.327 kg Melly ey Seybold BMI 2021-03-15 21:05:00 31.19 kg/m2 Melly ey Seybold Systolic blood pressure 2021-03-15 20:55:00 118 mm[Hg] [facility] Diastolic blood pressure 2021-03-15 20:55:00 78 mm[Hg] [facility] Heart rate 2021-03-15 20:55:00 108 /min Kelse y Seybold Body temperature 2021-03-15 20:55:00 36.72 Shivani Joseline Seanoop Oxygen saturation in Arterial blood by Pulse oximetry 2021-03-15 20:55:00 98 /min Joseline Kohlio [facility]hendra Procedures Procedure Date / Time Performed Performing Clinician Source RABIES VACCINE, IM 2023-07-12 16:29:39 Doctor Un assigned, Baylis [facility] RABIES VACCINE, IM 2023-07-01 23:31:[address] [facility] RIGHT 2023-05-31 22:39:24 Aimee Dickey [facility] ASSIGNMENT OF BENEFITS 2023-03-18 19:32:42 Docto r Unassigned, [facility] CONSENT/REFUSAL FOR DIAGNOSIS AND TREATMENT 2023-03-18 18:28:03 Doctor Unassigned, [facility] RAPID STREP SCREEN FOR GROUP A 2023-03-01 01:55:00 Linda Sanford [facility] RAPID INFLUENZA A/B 2023-03-01 01:55:00 Linda Sanford [facility] COVID-19 (ID NOW RAPID TESTING) 2023-03-01 01:55:00 Linda Sanford Shaina [facility] CONSENT/REFUSAL FOR DIAGNOSIS AND TREATMENT 2023-03-01 01:37:40 Doctor Unassigned, [facility] RAPID STREP SCREEN FOR GROUP A 2023-01-25 10:33:00 Shae Gillespie [facility] CONSENT/REFUSAL FOR DIAGNOSIS AND TREATMENT 2023-01-25 10:18:08 Doctor Unassigned, [facility] US TESTICULAR TORSION 2023-01-11 06:06:00 Joey Shultz [facility] URINALYSIS 2023-01-11 04:00:00 Ivonne Shultz [facility] CONSENT/REFUSAL FOR DIAGNOSIS AND TREATMENT 2023-01-11 03:07:43 Doctor Unassigned, [facility] INSURANCE CORRESPONDENCE 2022-12-10 05:01:00 Doc tor Unassigned, [facility]lis [facility] REFERRAL- REQUEST/RESPONSE 2022-12-09 05:01:00 Doctor Unassigned, [facility] CONSENT/REFUSAL FOR DIAGNOSIS AND TREATMENT 2022-12-02 13:22:20 Doctor Unassigned, [facility]lis [facility] TRANSTHORACIC ECHO (TTE) COMPLETE W/ CONTRAST 2022-11-20 16:09:18 Lea Melendez [facility] TROPONIN I 2022-11-20 13:52:00 Chanel Melendez deansboroverónica [facility] C-REACTIVE PROTEIN 2022-11-20 07:13:00 Tobias Melendezhammad [facility] TROPONIN I 2022-11-20 07:13:00 Al [facility] LIPID PANEL (53317)(TOTAL CHOLESTEROL, TRIGLYCERIDES, HDL) 2022-11-20 07:13:00 Tobias Melendezhammad [facility] FERRITIN SERUM 2022-11-20 02:14:00 Al [facility] TROPONIN I 2022-11-20 02:14:00 [facility] FREE T4 2022-11-20 02:14:00 Al [facility] THYROID STIMULATING HORMONE 2022-11-20 02:14:00 Al Tate [facility] HEPATIC FUNCTION PANEL (92165) (ALB,T.PRO,BILI T,BU/BC,ALT,AST,ALK PHOS) 2022-11-20 02:14:00 Al [facility] BASIC METABOLIC PANEL (NA, K, CL, CO2, GLUCOSE, BUN, CREATININE, CA) 2022-11-20 02:14:00 Al Tate [facility] IRON PANEL 2022-11-20 02:14:00 Al [facility] SEDIMENTATION RATE 2022-11-20 02:14:00 Al [facility] CBC WITH DIFF 2022-11-20 02:14:00 Al, [facility] GLYCOSYLATED HEMOGLOBIN (A1C) 2022-11-20 02:14:00 Al [facility] N-TERMINAL PRO-BNP 2022-11-20 02:14:00 Al [facility] XR CHEST 1 VW 2022-11-20 02:08:59 Chanel Melendezsan [facility] EXTRA TUBE LT. GREEN 2022-11-20 02:05:00 Wilfredo Braswell [facility] INSURANCE CORRESPONDENCE 2022-11-02 05:01:00 Doc tor Unassigned, [facility] US TESTICULAR TORSION 2022-09-28 15:35:02 Joey Shultz [facility] URINALYSIS 2022-09-28 14:52:00 Ivonne Shultz [facility] CONSENT/REFUSAL FOR DIAGNOSIS AND TREATMENT 2022-09-28 14:27:23 Doctor Unassigned, [facility] LIPASE 2022-09-25 12:43:00 Maral Gamble [facility] COMP. METABOLIC PANEL (88658) 2022-09-25 12:43:00 Maral Gamble [facility] CBC WITH DIFF 2022-09-25 12:43:00 Maral [facility] CONSENT/REFUSAL FOR DIAGNOSIS AND TREATMENT 2022-09-25 12:03:13 Doctor Unassigned, [facility] URINALYSIS 2022-08-04 01:52:00 Kain Rajput [facility] NOTICE OF PRIVACY PRACTICES 2022-08-04 01:24:37 Doctor Unassigned, [facility] CONSENT/REFUSAL FOR DIAGNOSIS AND TREATMENT 2022-08-04 01:24:12 Doctor Unassigned, [facility]lis [facility] CONSENT/REFUSAL FOR DIAGNOSIS AND TREATMENT 2022-02-28 20:35:39 Doctor Unassigned, [facility]lis [facility] RAPID STREP SCREEN FOR GROUP A 2022-02-13 18:03:00 Hardy Zavala [facility] RAPID INFLUENZA A/B 2022-02-13 18:03:00 Dinesh Zavala [facility] COVID-19 (ID NOW RAPID TESTING) 2022-02-13 18:03:00 Hardy Zavala [facility] CONSENT/REFUSAL FOR DIAGNOSIS AND TREATMENT 2022-02-13 17:16:02 Doctor Unassigned, [facility] CT ABDOMEN PELVIS W CONTRAST 2021-04-18 18:02:33 Kayla Livingston [facility] LIPASE 2021-04-18 17:19:00 Kyala Livingston [facility] MAGNESIUM 2021-04-18 17:19:00 Kayla Livingston [facility] COMP. METABOLIC PANEL (09308) 2021-04-18 17:19:00 Kayla Livingston [facility] CBC WITH DIFF 2021-04-18 17:19:00 [facility] 2021-04-18 17:19:00 Kayla Livingston [facility] NOTICE OF PRIVACY PRACTICES 2021-04-18 16:02:42 Doctor Unassigned, [facility] Encounters Start Date/Time End Date/Time Encounter Type Admission Type Attending [facility] Care Department Encounter ID Source 2023-10-17 00:00:00 2023-10-17 00:00:00 Outpatient MD JOSELINE MATHIAS [id number] [facility] 2023-10-17 00:00:00 2023-10-17 00:00:00 Outpatient MD JOSELINE MATHIAS [id number] [facility] 2023-10-15 00:00:00 2023-10-15 00:00:00 Outpatient JOHN YIN [id number] [facility] 2023-10-06 00:00:00 2023-10-06 00:00:00 Outpatient JOSELINE [facility]OLDBERG [id number] [facility]23-10-03 00:00:00 2023-10-03 00:00:00 Outpatient JOSELINE GOLDBERG [id number] [facility] 2023-10-02 00:00:00 2023-10-02 00:00:00 Outpatient PIPPA REYNOSO [id number] [facility] 2023-10-01 15:59:00 2023-10-01 17:11:00 Emergency JULIANA BARRY TIMOTHY [facility] [id number] [facility] 2023-10-01 15:59:00 2023-10-01 17:11:00 Emergency Juliana Baird [facility] [id number] [id number] [id number] [id number] [facility] 2023-10-01 14:45:00 2023-10-01 14:45:00 Outpatient ESTEFANY JOSELINE GOLDBERG [id number] [facility] 2023-10-01 14:00:00 2023-10-01 14:00:00 Outpatient PIPPA REYNOSO [id number] [facility] 2023-10-01 00:00:00 2023-10-01 00:00:00 Outpatient RADHA HERNANDES [id number] [facility] 2023-10-01 00:00:00 2023-10-01 00:00:00 Outpatient JOSELINE GOLDBERG [id number] [facility] 2023-09-02 00:00:00 2023-09-02 00:00:00 Outpatient SAVANAHDarling PIPPA JOSELINE GOLDBERG [id number] [facility] 2023-08-12 11:39:00 2023-08-12 12:41:00 Emergency X WILLIAN PEREZ JULIO [facility] ERT [id number] [facility] 2023-08-12 11:39:00 2023-08-12 12:41:00 Emergency Willian Perez [facility] [id number] [id number] [id number] [facility] 2023-07-12 11:15:00 2023-07-12 11:40:51 Outpatient LEEANN MCCORMICK [facility] [id number] [facility] 2023-07-12 11:15:2023-07-12 11:35:00 Nurse Visit Nurse, Venkata [facility] Desiree [facility] 1..840.114 350.1.13.10 4.2.7.2.686 [id number] [facility] 2023-07-05 12:00:00 2023-07-05 12:57:22 Outpatient R LEEANN MCCOY [facility] [id number] [facility] 2023-07-05 12:00:00 2023-07-05 12:20:00 Nurse Visit Nurse, Venkata Garcia [facility] Unknown, Attending [facility] 1..840.114 350.1.13.10 4.2.7.2.686 [id number] [facility] 2023-07-01 18:00:00 2023-07-01 18:54:27 Outpatient R NO NUR [facility] [id number] [facility] 2023-07-01 18:00:00 2023-07-01 18:20:00 Urgent Care No Nur Unknown, Attending [facility] 1..840.114 350.1.13.10 [id number] [id number] [facility] 2023-06-28 16:49:00 2023-06-28 20:22:00 Emergency Kayla RAMOS [facility] ERT [id number] [facility] 2023-06-28 16:49:00 2023-06-28 20:22:00 Emergency Darryl Owens K Paige [facility] 1..840.114 350.1.13.10 [id number] [id number] [facility] 2023-06-23 00:00:00 2023-06-23 00:00:00 Outpatient JOSELINE GOLDBERG [id number] [facility] 2023-06-23 00:00:00 2023-06-23 00:00:00 Outpatient JOSELINE GOLDBERG [id number] [facility] 2023-06-16 00:00:00 2023-06-16 00:00:00 Outpatient PIPPA REYNOSO JOSELINE GOLDBERG [id number] [facility] 2023-06-15 00:00:00 2023-06-15 00:00:00 Outpatient PIPPA REYNOSO JOSELINE [id number] [facility] 2023-06-13 13:45:00 2023-06-13 13:45:00 Outpatient JENY HAIDER JOSELINE GOLDBERG [id number] [facility] 2023-06-05 00:00:00 2023-06-05 00:00:00 Outpatient JENY HAIDER JOSELINE GOLDBERG [id number] [facility] 2023-06-02 00:00:00 2023-06-02 00:00:00 Outpatient PIPPA REYNOSO JOSELINE GOLDBERG [id number] [facility] 2023-06-02 00:00:00 2023-06-02 00:00:00 Outpatient JOSELINE GOLDBERG [id number] [facility] 2023-06-02 00:00:00 2023-06-02 00:00:00 Outpatient PIPPA REYNOSO JOSELINE GOLDBERG [id number] [facility] 2023-05-31 17:06:00 2023-05-31 18:29:00 Emergency X INDIA DICKEY [facility] ERT [id number] [facility] 2023-05-31 17:06:00 2023-05-31 18:29:00 Emergency India Dickey [facility] [id number] 350.1.13.10 [id number] [id number] [facility] 2023-05-28 00:00:00 2023-05-28 00:00:00 Outpatient PIPPA REYNOSO JOSELINE [facility]DBERG [id number] [facility]:00:00 2023-05-28 00:00:00 Outpatient PIPPA REYNOSOFRANK GOLDBERG [id number] [facility] 2023-05-28 00:00:00 2023-05-28 00:00:00 Outpatient PIPPA REYNOSO JOSELINE JOSELINE [id number] [facility] 2023-05-23 09:30:00 2023-05-23 09:30:00 Outpatient PIPPA REYNOSO JOSELINE GOLDBERG [id number] [facility] 2023-05-23 00:00:00 2023-05-23 00:00:00 Outpatient PIPPA REYNOSO JOSELINE GOLDBERG [id number] [facility] 2023-03-25 00:00:00 2023-03-25 00:00:00 Outpatient DIOGOGISELLA JOSELINE GOLDBERG [id number] [facility] 2023-03-25 00:00:00 2023-03-25 00:00:00 Outpatient GISELLA LIND [id number] [facility] 2023-03-25 00:00:00 2023-03-25 00:00:00 Outpatient JOSELINE GOLDBERG [id number] [facility] 2023-03-19 00:00:00 2023-03-19 00:00:00 Outpatient DIOGO GISELLA GOLDBERG [id number] [facility] 2023-03-18 12:37:00 2023-03-18 13:38:00 Emergency X BANDAR RICHARDSON [facility] ERT [id number] [facility] 2023-03-18 12:37:00 2023-03-18 13:38:00 Emergency Bandar Richardson [facility] 1.2.840.114 350.1.13.10 4.2.7.2.686 [id number] [facility] 2023-02-28 19:47:00 2023-02-28 21:02:00 Emergency X LINDA SANFORD [facility] ERT [id number] [facility] 2023-02-28 19:47:00 2023-02-28 21:02:00 Emergency Chaoman, Linda Shaina [facility] 1.2.840.114 350.1.13.10 4.2.7.2.686 [id number] [facility] 2023-02-13 00:00:00 2023-02-13 00:00:00 Outpatient JOSELINE GOLDBERG [id number] [facility] 2023-01-25 04:35:00 2023-01-25 06:05:00 Emergency X SHAE GILLESPIE [facility] ERT [id number] [facility] 2023-01-25 04:35:00 2023-01-25 06:05:00 Emergency Shae Gillespie [facility] 1.2.840.114 350.1.13.10 4.2.7.2.686 [id number] [facility] 2023-01-10 21:21:00 2023-01-11 01:38:00 Emergency X IVONNE SHULTZ [facility] ERT [id number] [facility] 2023-01-10 21:21:00 2023-01-11 01:38:00 Emergency Ivonne Shultz [facility] 1.2.840.114 350.1.13.10 4.2.7.2.686 [id number] [facility] 2022-12-25 09:15:00 2022-12-25 09:15:00 Outpatient KACIE QUIROZ [id number] [facility] 2022-12-10 00:00:00 2022-12-10 00:00:00 Orders Only Doctor Unassigned, Baylis [facility] 1.2840.114 350.1.13.10 4.2.7.2.686 [id number] [facility] 2022-12-09 00:00:00 2022-12-09 00:00:00 Orders Only Doctor Unassigned, Baylis [facility] 1.2.840.114 350.1.13.10 4.2.7.2.686 [id number] [facility] 2022-12-04 00:00:00 2022-12-04 00:00:00 Outpatient JOSELINE GOLDBERG [id number] [facility] 2022-12-03 00:00:00 2022-12-03 00:00:00 Outpatient GISELLA LNID JOSELINE GOLDBERG [id number] [facility] 2022-12-02 08:34:00 2022-12-02 10:08:00 Emergency X YARA, Kayla [facility] ERT [id number] [facility] 2022-12-02 08:34:00 2022-12-02 10:08:00 Emergency Yara, Kayla [facility] 1..840.114 350.1.13.10 4.2.7.2.686 [id number] [facility] 2022-11-23 00:00:00 2022-11-23 00:00:00 Outpatient SAVANAHPIPPA Trejo JOSELINE GOLDBERG [id number] [facility] 2022-11-21 00:00:00 2022-11-21 00:00:00 Outpatient JOSELINE GOLDBERG [id number] [facility] 2022-11-19 19:34:00 2022-11-20 16:45:00 Outpatient X HAYDEN BRASWELL [facility] [id number] [facility] 2022-11-19 19:34:00 2022-11-20 16:45:00 Hospital Encounter Jose Guadalupe Meraz [facility] 1..840.114 350.1.13.10 4.2.7.2.686 [id number] [facility] 2022-11-20 13:00:00 2022-11-20 13:00:00 Outpatient GABRIELLA KACIESonia GOLDBERG [id number] [facility] 2022-11-19 11:30:00 2022-11-19 11:30:00 Outpatient CECIL CHATMAN JOSELINE GOLDBERG [id number] [facility] [place] 2022-11-19 00:00:00 2022-11-19 00:00:00 Outpatient PIPPA REYNOSO JOSELINE GOLDBERG [id number] [facility]eline [facility] 2022-11-02 00:00:00 2022-11-02 00:00:00 Outpatient JOSELINE GOLDBERG [id number] [facility] 2022-11-02 00:00:00 2022-11-02 00:00:00 Orders Only Doctor Unassigned, Baylis [facility] 1.2.840.114 350.1.13.10 4.2.7.2.686 [id number] [facility] 2022-11-01 00:00:00 2022-11-01 00:00:00 Outpatient JOSELINE GOLDBERG [id number] [facility] [place] 2022-10-22 00:00:00 2022-10-22 00:00:00 Outpatient PIPPA REYNOSO JOSELINE GOLDBERG [id number] [facility] 2022-10-22 00:00:00 2022-10-22 00:00:00 Outpatient JOSELINE GOLDBERG [id number] [facility] [place] 2022-10-18 00:00:00 2022-10-18 00:00:00 Outpatient JOSELINE GOLDBERG [id number] [facility] 2022-10-16 00:00:00 2022-10-16 00:00:00 Outpatient PIPPA REYNOSO JOSELINE GOLDBERG [id number] [facility] 2022-10-15 00:00:00 2022-10-15 00:00:00 Outpatient JOHN YIN JOSELINE GOLDBERG [id number] [facility]eline [facility] 2022-10-15 00:00:00 2022-10-15 00:00:00 Outpatient ANNAMARIAJOHN JOSELINE GOLDBERG [id number] [facility] 2022-10-11 08:00:00 2022-10-11 08:00:00 Outpatient LAB90 JOSELINE GOLDBERG [id number] [facility] 2022-10-11 00:00:00 2022-10-11 00:00:00 Outpatient PIPPA REYNOSO JOSELINE [id number] [facility] 2022-10-08 00:00:00 2022-10-08 00:00:00 Outpatient PIPPA REYNOSO JOSELINE [id number] [facility] 2022-10-07 00:00:00 2022-10-07 00:00:00 Outpatient JOSELINE JOSELINE [id number] [facility] 2022-10-07 00:00:00 2022-10-07 00:00:00 Outpatient JOSELINE JOSELINE [id number] [facility] 2022-10-02 00:00:00 2022-10-02 00:00:00 Outpatient PIPPA REYNOSO JOSELINE GOLDBERG [id number] [facility] 2022-09-28 09:34:00 2022-09-28 11:04:00 Emergency X IVONNE SHULTZ [facility] ERT [id number] [facility] 2022-09-28 09:34:00 2022-09-28 11:04:00 Emergency SukhdevIvonne gomez Magaly [facility] 1.2.840.114 350.1.13.10 4.2.7.2.686 [id number] [facility] 2022-09-28 00:00:00 2022-09-28 00:00:00 Outpatient PIPPA REYNOSO JOSELINE GOLDBERG [id number] [facility] 2022-09-25 07:15:00 2022-09-25 09:59:00 Emergency X VERITOALEMCARLTONMARAL [facility] ERT [id number] [facility] 2022-09-25 07:15:00 2022-09-25 09:59:00 Emergency Maral Gamble [facility] 1.2.840.114 350.1.13.10 4.2.7.2.686 [id number] [facility] 2022-09-11 00:00:00 2022-09-11 00:00:00 Outpatient PIPPA REYNOSO JOSELINE GOLDBERG [id number] [facility] 2022-09-06 14:45:00 2022-09-06 14:45:00 Outpatient LAB90 JOSELINE JOSELINE [id number] [facility] 2022-09-06 14:00:00 2022-09-06 14:00:00 Outpatient PIPPA REYNOSO JOSELINE GOLDBERG [id number] [facility] 2022-09-06 00:00:00 2022-09-06 00:00:00 Outpatient JOSELINE GOLDBERG [id number] [facility] 2022-08-12 00:00:00 2022-08-12 00:00:00 Outpatient ANNAMARIAJOHN JOSELINE GOLDBERG [id number] [facility] 2022-08-12 00:00:00 2022-08-12 00:00:00 Outpatient JOSELINE GOLDBERG [id number] [facility] 2022-08-03 20:31:00 2022-08-03 21:56:00 Emergency X KAIN RAJPUT [facility] ERT [id number] [facility] 2022-08-03 20:31:00 2022-08-03 21:56:00 Emergency Kain Rajput [facility] 1.2.840.114 350.1.13.10 4.2.7.2.686 [id number] [facility] 2022-07-19 11:30:00 2022-07-19 11:30:00 Outpatient JOHN YIN [id number] [facility] 2022-07-12 14:00:00 2022-07-12 14:00:00 Outpatient GISELLA LIND [id number] [facility] 2022-07-12 14:00:00 2022-07-12 14:00:00 Outpatient GISELLA LIND [id number] [facility] 2022-07-10 00:00:00 2022-07-10 00:00:00 [id number] [facility] 00:00:00 2022-06-28 00:00:00 Outpatient GISELLA LIND JOSELINE [id number] [facility] 2022-06-28 00:00:00 2022-06-28 00:00:00 Outpatient GISELLA LIND JOSELINE [id number] [facility] 2022-03-04 15:30:00 2022-03-04 15:30:00 Outpatient GISELLA LIND JOSELINE [id number] [facility] 2022-02-28 14:49:00 2022-02-28 15:41:00 Emergency X RIDÁLVARO [facility] ERT [id number] [facility] 2022-02-28 14:49:00 2022-02-28 15:41:00 Emergency Iggy Weller [facility] 1.2.840.114 350.1.13.10 4.2.7.2.686 [id number] [facility] 2022-02-28 00:00:00 2022-02-28 00:00:00 Outpatient JOHN YIN JOSELINE JOSELINE [id number] [facility] 2022-02-28 00:00:00 2022-02-28 00:00:00 Outpatient JOSELINE GOLDBERG [id number] [facility] 2022-02-22 15:15:00 2022-02-22 15:15:00 Outpatient MIHAI HAHN JOSELINE GOLDBERG [id number] [facility] 2022-02-13 11:20:00 2022-02-13 12:52:00 Emergency X BEHZADI, HARDY [facility] ERT [id number] [facility] 2022-02-13 11:20:00 2022-02-13 12:52:00 Emergency Behzadi, Hardy A [facility] 1.2.840.114 350.1.13.10 4.2.7.2.686 [id number] [facility] 2022-02-13 00:00:00 2022-02-13 00:00:00 Outpatient GISELLA LIND [id number] [facility] 2022-02-13 00:00:00 2022-02-13 00:00:00 Orders Only Doctor Unassigned, Baylis [facility] 1.2.840.114 350.1.13.10 4.2.7.2.686 [id number] [facility] 2021-11-05 00:00:00 2021-11-05 00:00:00 Outpatient GISELLA LIND [id number] [facility] 2021-08-31 03:15:00 2021-08-31 03:15:00 Outpatient HANH HUERTAS [facility] [id number] 2021-06-25 00:00:00 2021-06-25 00:00:00 Outpatient GISELLA LIND [id number] [facility] 2021-06-15 00:00:00 2021-06-15 00:00:00 Outpatient GISELLA LIND [id number] [facility] 2021-04-18 10:30:00 2021-04-18 14:28:00 Emergency X Kayla LIVINGSTON [facility] ERT [id number] [facility] 2021-04-18 10:30:00 2021-04-18 14:28:00 Emergency Kayla Livingston [facility] 1.2.840.114 350.1.13.10 4.2.7.2.686 [id number] [facility] 2021-04-18 00:00:00 2021-04-18 00:00:00 Outpatient GISELLA LIND [id number] [facility] 2021-03-28 00:00:00 2021-03-28 00:00:00 Outpatient GISELLA LIND [id number] [facility] 2021-03-28 00:00:00 2021-03-28 00:00:00 Outpatient JOSELINE GOLDBERG [id number] [facility] 2021-03-28 00:00:00 2021-03-28 00:00:00 Outpatient JOSELINE GOLDBERG [id number] [facility] 2021-03-16 10:20:00 2021-03-16 10:20:00 Outpatient LAB90 JOSELINE GOLDBERG [id number] [facility] 2021-03-16 09:35:00 2021-03-16 09:35:00 Outpatient LAB90 JOSELINE GOLDBERG [id number] [facility] 2021-03-15 15:15:00 2021-03-15 15:45:00 Office Visit Gisella Lind [place] 1.2.840.114 350.1.13.13 1.2.7.2.686 [id number] [facility] 2021-03-15 00:00:00 2021-03-15 00:00:00 Outpatient GISELLA LIND [id number] [facility] 2021-03-15 00:00:00 2021-03-15 00:00:00 Outpatient GISELLA LIND [id number] [facility] Results Test Description Test Time Test Comments Results Resul t Comments Source XR KNEE 3 VW RIGHT 2023-05-19 3 22:42:42 XR KNEE 3 VW RIGHT HISTORY: ?right knee pain COMPARISON: ?none available. Findings:The osseous structures are intact. Tricompartmental mild osteoarthrosis.Small knee joint effusion.Mild soft tissue edema. ?No abnormal soft tissue calcification. [facility]-20 10:43:53* Test Item Value Reference Range Interpretation Comme nts HGB A1C (test code = 4548-4) 5.7 % 4.0-5.7 JAY (test code = JAY) Reference RangesNormal: <5.7%Prediabetes: 5.7 - 6.4%Diabetes: > 6.5% Lab Interpretation (test code = 64447-5) [facility] [id number] 06:15:25* Test Item Value Reference Range Interpretation Comme nts FERRITIN (test code = 9326994555) 36.6 ng/mL 18.0-464.0 JAY (test code = JAY) Biotin has been reported to cause a negative bias, interpret results relative to patient's use of biotin. Lab Interpretation (test code = 58418-0) Normal [facility] [id number] 05:48:00* Test Item Value Reference Range Interpretation Comme nts IRON (test code = 8602189254) 109 ug/dL 50-160 TIBC (test code = 9740355801) 387 ug/dL 250-410 % FE SAT (test code = 0416602265) 28 % 20-50 Lab Interpretation (test cod e = 02325-3) Normal [facility] [id number] 05:10:55* Test Item Value Reference Range Interpretation Comme nts FREE T4 (test code = 1645062978) 1.12 See_Comment [Automated Truevision[employer] ge] The system which generated this result transmitted reference range: 0.78 - 2.20 ng/dL:. The reference range was not used to interpret this result as normal/abnormal. Lab Interpretation (test code = 20835-0) Normal [facility]ED[facility]ATION [id number] 04:03:25* Test Item Value Reference Range Interpretation Comme nts ESR (test code = 21164-2) 2 See_Comment [Automated message] The system which generated this result transmitted reference range: 2 - 30 mm/HR. The reference range was not used to interpret this result as normal/abnormal. Lab Interpretation (test code = 29290-6) Normal [facility]AL [id number] 03:50:48* Test Item Value Reference Range Interpretation Comme nts NT-proBNP (test code = 13810-6) <=125 Lab Interpretation (test cod e = 09870-9) Normal [facility] SystemTHYROID STIMULATING [id number] 03:15:04 * Test Item Value Reference Range Interpretation Comme nts TSH (test code = 6650334444) 8.65 See_Comment H [Automated [employer]vision[employer] ge] The system which generated this result transmitted reference range: 0.45 - 4.70 mIU/L. The reference range was not used to interpret this result as normal/abnormal. Lab Interpretation (test code = 90106-1) Abnormal [facility] SystemTR[facility] [id number] 02:56:39* Test Item Value Reference Range Interpretation Comme nts TROPONIN I (test code = 5932291754) 0.002 ng/mL <=0.034 JAY (test code = JYA) Reference (Normal) Range (defined by the 99th [...] of biotin. Lab Interpretation (test code = 88702-8) Normal [facility] METABOLIC PANEL (NA, K, CL, CO2, GLUCOSE, BUN, CREATININE, CA)2022-11-20 02:40:39* Test Item Value Reference Range Interpretation Comme nts NA (test code = 7957262012) 135 mmol/L 135-145 K (test code = 7917416260) 4.1 mmol/L 3.5-5.0 CL (test code = 6074094002) 104 mmol/L 98-108 CO2 TOTAL (test code = 1640644702) 23 mmol/L 23-31 AGAP (test code = 1912669855) 8 2-16 BUN (test code = 0697994430) 14 mg/dL 7-23 GLUCOSE (test code = 2716782141) 100 mg/dL 70-110 CREATININE (test code = 3669794724) 0.67 mg/dL 0.60-1.25 CALCIUM (test code = 9835987179) 9.0 mg/dL 8.6-10.6 eGFR (test code = 4827269483) 139.3 mL/min/1.73m2 JAY (test code = JAY) [...] or urine or abnormalities in imaging tests). [facility]CTION PAN[facility] (46230) (ALB,T.PRO,BILI T,BU/BC,ALT,AST,ALK PHOS)2022-11-20 02:40:39* Test Item Value Reference Range Interpretation Comme nts TOTAL BILI (test code = 3128614219) 0.4 mg/dL 0.1-1.1 BILI UNCON (test code = 8259638196) 0.4 mg/dL 0.1-1.1 BILI CONJ (test code = 3027358006) 0.0 mg/dL 0.0-0.3 T PROTEIN (test code = 7461452838) 7.3 g/dL 6.3-8.2 ALBUMIN (test code = 6287247197) 4.6 g/dL 3.5-5.0 ALK PHOS (test code = 6551376613) 42 U/L 34-122 ALTv (test code = 1742-6) 86 U/L 5-50 H AST(SGOT) (test code = 9183538583) 41 U/L 13-40 H Lab Interpretation (test cod e = 94053-5) Abnormal [facility] WITH [id number] 02:33:58* Test Item Value Reference Range Interpretation Comme nts WBC (test code = 6690-2) 9.15 See_Comment [Automated messa ge] The system which generated this result transmitted reference range: 4.20 - 10.70 10*3/?L. The reference range was not used to interpret this result as normal/abnormal. RBC (test code = 789-8) 5.12 See_Comment [Automated messa ge] The system which [...] g/dL 31.2-35.0 H RDW-SD (test code = 57065-3) 39.2 fL 38.5-51.6 RDW-CV (test code = 788-0) 12.5 % 12.1-15.4 PLT (test code = 777-3) 220 See_Comment [Automated messa ge] The system which generated this result transmitted reference range: 150 - 328 10*3/?L. The reference range was not used to interpret this result as normal/abnormal. MPV (test code = 01889-0) 11.8 fL 9.8-13.0 NRBC/100 WBC (test code = 4262119088) 0.0 See_Comment [Automated DiBcom ssage] The system which generated this result transmitted reference range: 0.0 - 10.0 /100 WBCs. The reference range was not used to interpret this result as normal/abnormal. NRBC x10^3 (test code = 8245230147) See_Comment [Automated messa ge] The system which generated this result transmitted reference range: 10*3/?L. The reference range was not used to interpret this result as normal/abnormal. GRAN MAT (NEUT) % (test code = 770-8) 68.5 % IMM GRAN % (test code = 3444100508) 0.30 % LYMPH % (test code = 736-9) 20.9 % MONO % (test code = 5905-5) 7.5 % EOS % (test code = 713-8) 2.3 % BASO % (test code = 706-2) 0.5 % GRAN MAT x10^3(ANC) (test code = 0280378048) 6.26 10*3/uL 1.99-6.95 IMM GRAN x10^3 (test code = 0609385966) 0.03 10*3/uL 0.00-0.06 LYMPH x10^3 (test code = 731-0) 1.91 10*3/uL 1.09-3.23 MONO x10^3 (test code = 742-7) 0.69 10*3/uL 0.36-1.02 EOS x10^3 (test code = 711-2) 0.21 10*3/uL 0.06-0.53 BASO x10^3 (test code = 704-7) 0.05 10*3/uL 0.01-0.09 Lab Interpretation (test code = 85031-8) Abnormal [facility]. METABOLIC PANEL (46021)2022-09-25 13:24:42* Test Item Value Reference Range Interpretation Comme nts NA (test code = 3645508534) 138 mmol/L 135-145 K (test code = 5057938494) 3.7 mmol/L 3.5-5.0 CL (test code = 7037745070) 102 mmol/L 98-108 CO2 TOTAL (test code = 3077405752) 25 mmol/L 23-31 AGAP (test code = 3755722072) 11 2-16 BUN (test code = 0416031168) 15 mg/dL 7-23 GLUCOSE (test code = 2899515633) 119 mg/dL 70-110 H CREATININE (test code = 5742959041) 0.80 mg/dL 0.60-1.25 TOTAL BILI (test code = 8585423391) 0.5 mg/dL 0.1-1.1 CALCIUM (test code = 5617973490) 8.7 mg/dL 8.6-10.6 T PROTEIN (test code = 1753548207) 7.8 g/dL 6.3-8.2 ALBUMIN (test code = 0692777629) 4.5 g/dL 3.5-5.0 ALK PHOS (test code = 9922968995) 45 U/L 34-122 ALTv (test code = 1742-6) 82 U/L 5-50 H AST(SGOT) (test code = 8380570267) 44 U/L 13-40 H eGFR (test code = 9296526859) 113.5 mL/min/1.73m2 JAY (test code = JAY) [...] imaging tests). Lab Interpretation (test code = 29613-1) Abnormal [facility] 13:24:02* Test Item Value Reference Range Interpretation Comme nts LIPASE (test code = 2261113858) 290 U/L 0-220 H Lab Interpretation (test cod e = 48347-8) Abnormal [facility] WITH [id number] 13:10:59* Test Item Value Reference Range Interpretation Comme nts WBC (test code = 6690-2) 8.31 See_Comment [Automated [employer] ge] The system which generated this result transmitted reference range: 4.20 - 10.70 10*3/?L. The reference range was not used to interpret this result as normal/abnormal. RBC (test code = 789-8) 5.34 See_Comment [Automated [employer]vision[employer] ge] The system which generated this result [...] g/dL 31.2-35.0 H RDW-SD (test code = 06094-3) 38.1 fL 38.5-51.6 L RDW-CV (test code = 788-0) 12.4 % 12.1-15.4 PLT (test code = 777-3) 202 See_Comment [Automated messa ge] The system which generated this result transmitted reference range: 150 - 328 10*3/?L. The reference range was not used to interpret this result as normal/abnormal. MPV (test code = 30148-9) 11.9 fL 9.8-13.0 NRBC/100 WBC (test code = 8942120047) 0.0 See_Comment [Automated DiBcom ssage] The system which generated this result transmitted reference range: 0.0 - 10.0 /100 WBCs. The reference range was not used to interpret this result as normal/abnormal. NRBC x10^3 (test code = 2003199206) See_Comment [Automated messa ge] The system which generated this result transmitted reference range: 10*3/?L. The reference range was not used to interpret this result as normal/abnormal. GRAN MAT (NEUT) % (test code = 770-8) 70.7 % IMM GRAN % (test code = 1989560974) 0.80 % LYMPH % (test code = 736-9) 18.4 % MONO % (test code = 5905-5) 7.0 % EOS % (test code = 713-8) 2.6 % BASO % (test code = 706-2) 0.5 % GRAN MAT x10^3(ANC) (test code = 9024021452) 5.87 10*3/uL 1.99-6.95 IMM GRAN x10^3 (test code = 2915668414) 0.07 10*3/uL 0.00-0.06 H LYMPH x10^3 (test code = 731-0) 1.53 10*3/uL 1.09-3.23 MONO x10^3 (test code = 742-7) 0.58 10*3/uL 0.36-1.02 EOS x10^3 (test code = 711-2) 0.22 10*3/uL 0.06-0.53 BASO x10^3 (test code = 704-7) 0.04 10*3/uL 0.01-0.09 Lab Interpretation (test code = 59691-4) [facility]normal [facility] 18:18:55* Test Item Value Reference Range Interpretation Comme nts MAGNESIUM (test code = 9023900137) 1.6 mg/dL 1.7-2.4 L Lab Interpretation (test cod e = 00728-5) Abnormal [facility] METABOLIC PANEL (01859)2021-04-18 18:18:35* Test Item Value Reference Range Interpretation Comme nts NA (test code = 3906791332) 136 mmol/L 135-145 K (test code = 3289734392) 4.6 mmol/L 3.5-5.0 CL (test code = 8861035552) 102 mmol/L 98-108 CO2 TOTAL (test code = 3812348709) 24 mmol/L 23-31 AGAP (test code = 6497880451) 2-16 BUN (test code = 5846870294) 12 mg/dL 7-23 GLUCOSE (test code = 4777493578) 95 mg/dL 70-110 CREATININE (test code = 1948112214) 0.78 mg/dL 0.60-1.25 TOTAL BILI (test code = 6733017669) 0.6 mg/dL 0.1-1.1 CALCIUM (test code = 9673980353) 9.3 mg/dL 8.6-10.6 T PROTEIN (test code = 5174272644) 7.1 g/dL 6.3-8.2 ALBUMIN (test code = 0010998487) 4.6 g/dL 3.5-5.0 ALK PHOS (test code = 4662672645) 54 U/L 34-122 ALTv (test code = 1742-6) 53 U/L 5-50 H AST(SGOT) (test code = 9876279286) 37 U/L 13-40 eGFR (test code = 9254262485) mL/min/1.73m2 JAY (test code = JAY) Association [...] imaging tests). Lab Interpretation (test code = 11236-4) [facility]normal [facility] 18:18:35* Test Item Value Reference Range Interpretation Comme nts LIPASE (test code = 4713550714) 49 U/L 0-220 Lab Interpretation (test cod e = 58578-6) Normal [facility] WITH [id number] 18:05:30* Test Item Value Reference Range Interpretation Comme nts WBC (test code = 6690-2) See_Comment H [Automated [employer]] The system which generated this result [...] 35.0 g/dL 31.2-35.0 RDW-SD (test code = 06536-0) 37.9 fL 38.5-51.6 L RDW-CV (test code = 788-0) 12.5 % 12.1-15.4 PLT (test code = 777-3) See_Comment [Automated [employer]] The system which generated this result transmitted reference range: 150 - 328 10*3/?L. The reference range was not used to interpret this result as normal/abnormal. MPV (test code = 41136-0) 12.1 fL 9.8-13.0 NRBC/100 WBC (test code = 9168692746) See_Comment [Automated me ssage] The system which generated this result transmitted reference range: 0.0 - 10.0 /100 WBCs. The reference range was not used to interpret this result as normal/abnormal. NRBC x10^3 (test code = 6244618105) <0.01 See_Comment [Automated messa ge] The system which generated this result transmitted reference range: 10*3/?L. The reference range was not used to interpret this result as normal/abnormal. GRAN MAT (NEUT) % (test code = 770-8) 72.0 % IMM GRAN % (test code = 5860943543) 0.60 % LYMPH % (test code = 736-9) 19.4 % MONO % (test code = 5905-5) 6.7 % EOS % (test code = 713-8) 1.0 % BASO % (test code = 706-2) 0.3 % GRAN MAT x10^3(ANC) (test code = 5356558020) 8.94 10*3/uL 1.99-6.95 H IMM GRAN x10^3 (test code = 3825608384) 0.08 10*3/uL 0.00-0.06 H LYMPH x10^3 (test code = 731-0) 2.41 10*3/uL 1.09-3.23 MONO x10^3 (test code = 742-7) 0.83 10*3/uL 0.36-1.02 EOS x10^3 (test code = 711-2) 0.13 10*3/uL 0.06-0.53 BASO x10^3 (test code = 704-7) 0.04 10*3/uL 0.01-0.09 Lab Interpretation (test code = 07849-1) Abnormal [facility] Notes Date/Time Note Provider Source 2023-10-01 16:55:00 Pt given printed and verbal discharge instructions regarding rectal pain, encouraged hydration. Prescriptions provided. Pt verbalized understanding of instructions, pt awake alert oriented, resp reg unlabored, skin w/d, color appropriate for race, moves all ext well,pt encouraged to follow up with pcp. Advised to seek medical attention for new/prolonged/worsening of symptoms. Awake, alert oriented, resp reg unlabored, skin w/d, pt leaving amb with steady gait, in no apparent distress, accompanied by significant other. Nicolette Olvera RN [facility] 2023-10-01 15:56:56 Pt states, "I just came from my PCP. They wanted me to come here to get more evaluated for my hemmorids. I spoke to a maintenance representative on the phone who said I could come here to go to the ER and have them possibly surgically removed. The pain is a 15 on the 10 scale." Pt appears in no acute distress and appears to be sitting comfortably. Domi Cazares RN [facility] 2023-10-01 15:51:00 [facility] Emergency Department Note Patient Name: Angel Chaney Date of : 1990 33 year old male Treatment Room: [facility] ED [facility] Primary Care Physician: Gisella Lind Patient Escorted by: Family [5] Mode of Arrival: Personal means [1] EMS Treatment Prior to ED Arrival: Travel and Exposure Screening: Symptoms Does patient have any of these symptoms?: (not recorded) Exposure Screening Has patient had contact with someone with a communicable disease in the last month?: (not recorded) Diseases exposed to:: (not recorded) Is Patient ?: (not recorded) Exposure Date: (not recorded) Chief Complaint: Chief Complaint Patient presents with Other "Further hemorrhoid evaluation" History of Present Illness: This patient has a complaint of nausea and rectal pain. The patient further relates that he has had hemorrhoids for over 6 years and has intermittent flares. A visit to the primary care doctor was done today and a diagnosis of hemorrhoids was given. The patient is concerned because he is having persistent pain to his rectum especially with bowel movements. There has been no related fever though there has been some rectal bleeding. Patient does not relate lightheadedness, dizziness or near syncope.. History provided by: Patient Past Medical History/Immunizations: Past Medical History: Diagnosis Date GERD (gastroesophageal reflux disease) PUD (peptic ulcer disease) Allergies: No Known Allergies Past Social History: Tobacco Use Every Day; Types: Cigarettes Passive Exposure: Current Smokeless Tobacco: Never used smokeless tobacco. Comments: Patient states that he uses vapes with nicotine in replace of cigarettes Vaping Use Never assessed Alcohol Use Yes. Comments: socially (once every few months) Drug Use Never. Past Surgical History: Past Surgical History: Procedure Laterality Date ESOPHAGOGASTRODUODENOSCOPY HB COLONSCOPY BALLOON DILATION Review of Systems: Review of Systems Respiratory: Negative for chest tightness. Cardiovascular: Negative for chest pain. Gastrointestinal: Positive for anal bleeding and rectal pain. Negative for abdominal pain, nausea and vomiting. Physical Exam: ED Triage Vitals [10/01/23 1558] Weight 122.5 kg (270 lb) Actual or estimated Estimated by patient/family report Height 1.829 m (6') BP (!) 144/89 Pulse 84 Resp 14 Temp 36.7 ?C (98.1 ?F) Temp source Oral SpO2 99 % Measured on Room air Physical Exam Cardiovascular: Rate and Rhythm: Normal rate and regular rhythm. Pulses: Normal pulses. Heart sounds: Normal heart sounds. Pulmonary: Effort: Pulmonary effort is normal. Breath sounds: Normal breath sounds. Abdominal: General: There is no distension. Palpations: Abdomen is soft. Tenderness: There is no abdominal tenderness. Genitourinary: Comments: Rectal semination reveals rectal pain or tenderness without external visible hemorrhoids. There are internal hemorrhoids present though. No current active rectal bleeding. Neurological: Mental Status: He is alert. Radiology: No orders to display Lab Results: Lab Results - No data to display EKG: If EKG completed, see Procedure Note. Orders and Treatments: Orders Placed This Encounter Procedures Consult/Referral Colorectal Surgery Orders Placed This Encounter Medications hydrocortisone 25 mg suppository dibucaine 1 % ointment First Provider Eval: ED Events Date/Time Event User Comments 10/01/23 1621 Medical Screening Begins JULIANA BAIRD DO -- 10/01/23 1621 First Provider Evaluation JULIANA BAIRD DO -- ED COURSE Diagnosis/Impression as of 10/01/23 1636 Rectal pain Procedures: Procedures MDM: Medical Decision Making Patient was evaluated for the complaint of Other ("Further hemorrhoid evaluation") Diagnoses considered but not limited to: GI Bleeding Hemorrhoids anal fissure. Colitis proctitis Labs:were not ordered. Imaging:Was not ordered Procedures:were not performed. History, physical exam findings, results of visit, diagnosis, medication regimens and plan of future care have been considered. Additional MDM may be found in the ED course. Vital signs were rechecked before final disposition and determined to be stable. Flowsheet Documentation: Scoring Tools: No data recorded Disposition/Condition: ED Disposition ED Disposition Disch - Home Condition Stable Comment -- Discharge Medications: Patient's Medications START taking these medications DIBUCAINE 1 % OINTMENT Apply to area(s) 3 (three) times daily as needed for Pain (scale 4-6) or Pain (scale 7-10). HYDROCORTISONE 25 MG SUPPOSITORY Insert 1 Suppository into rectum in the morning and 1 Suppository in the evening. CONTINUE taking these medications which have NOT CHANGED ALBUTEROL 90 MCG/ACTUATION INHALER Inhale 2 Puffs every 4 (four) hours as needed for Wheezing or Shortness of Breath. AZITHROMYCIN 250 MG TABLET Take 1 tablet by mouth in the morning. BENZONATATE 100 MG CAPSULE Take 1 capsule by mouth 3 (three) times daily as needed for Cough. DOXYCYCLINE HYCLATE 100 MG CAPSULE Take 1 capsule by mouth in the morning and 1 capsule in the evening. METHYLPREDNISOLONE (MEDROL, LAM,) 4 MG TABLETS Take by mouth SEE-INSTRUCTIONS. follow package directions MUPIROCIN 2 % OINTMENT Apply to area(s) 3 (three) times daily. NIRMATRELVIR-RITONAVIR 300 MG (150 MG X 2)-100 MG TABLET Take 3 tablets by mouth in the morning and 3 tablets in the evening. PANTOPRAZOLE 40 MG EC TABLET Take 1 tablet by mouth. TRAZODONE 150 MG TABLET Take 1 tablet by mouth. START taking Modified Medications as Prescribed No medications on file STOP taking these medications No medications on file Follow-up: Contact information for follow-up Gisella Lind MD Specialty: -FAMILY MEDICINE [place] [address] [facility] [id number] Instructions: As needed Electronically signed by: Juliana Baird DO 10/01/23 1636 T [facility] 2023-10-01 13:39:27 Chief Complaint Patient presents with Hemorrhoids Hemorrhoid issues. Bright red and dark blood in stool. Increased pain. Mitzi Paniagua MA II [facility] 2023-08-12 12:41:08 Pt given printed and verbal discharge instructions regarding acute right-sided low back pain without sciatica, encouraged hydration, 0 Prescriptions provided Pt verbalized understanding of instructions, pt awake alert oriented, resp reg unlabored, skin w/d, color appropriate for race, moves all ext well,pt encouraged to follow up with pcp. Advised to seek medical attention for new/prolonged/worsening of symptoms, Symptoms improved. No adverse reaction to meds given in ER noted upon discharge Awake, alert oriented, resp reg unlabored, skin w/d, pt leaving amb with steady gait, in no apparent distress, T [facility] 2023-08-12 11:36:45 Patient arrived ambulatory c/o of lower back pain that started Friday. Denies any injury. States pain is shooting down his right leg. Attempted heating pad and ibuprofen at home with no relief. 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 Denies any injury. States pain is shooting down his right leg. Attempted heating pad and ibuprofen at home with no relief. Chief Complaint Patient presents with LOW BACK PAIN History of present illness HPI 33-year-old man comes to the emergency department for evaluation of right lower back pain radiating down to his leg. Symptoms started on Friday of last week denies bladder or bowel problems, no sensory changes. Pain is exacerbated with lower back movements. H/o GERD. BP (!) 125/92 | Pulse 93 | Temp 37 ?C (98.6 ?F) (Oral) | Resp 18 | Ht 1.829 m (6') | Wt 122.5 kg (270 lb) | SpO2 96% | BMI 36.62 kg/m? Past Medical and Social History Past Medical History: Diagnosis Date GERD (gastroesophageal reflux disease) PUD (peptic ulcer disease) Tetanus received in last 5 years: Yes Childhood immunizations: Up-to-date Social History Tobacco Use Smoking status: Every Day Types: Cigarettes Passive exposure: Current Smokeless tobacco: Never Tobacco comments: Patient states that he uses vapes with nicotine in replace of cigarettes Substance Use Topics Alcohol use: Yes Comment: socially (once every few months) Drug use: Never Past Surgical History Past Surgical History: Procedure Laterality Date ESOPHAGOGASTRODUODENOSCOPY HB COLONSCOPY BALLOON DILATION Medications Medications ketorolac (TORADOL) injection 30 mg (30 mg Intramuscular Given 08/12/23 1222) dexamethasone sod phos PF injection 10 mg (10 mg Intramuscular Given 08/12/23 1220) Allergies No Known Allergies Review of Systems Review of Systems Constitutional: Negative. HENT: Negative. Eyes: Negative. Respiratory: Negative. Breasts: Negative. Cardiovascular: Negative. Gastrointestinal: Negative. Genitourinary: Negative. Musculoskeletal: Positive for back pain. Skin: Negative. Neurological: Negative. Psychiatric/Behavioral: Negative. Endocrine: Endocrine negative Physical Exam BP (!) 125/92 | Pulse 93 | Temp 37 ?C (98.6 ?F) (Oral) | Resp 18 | Ht 1.829 m (6') | Wt 122.5 kg (270 lb) | SpO2 96% | BMI 36.62 kg/m? Physical Exam Vitals and nursing note reviewed. Constitutional: General: He is not in acute distress. Appearance: He is well-developed. He is not ill-appearing. HENT: Head: Normocephalic and atraumatic. Right Ear: Ear canal and external ear normal. Left Ear: Ear canal and external ear normal. Nose: Nose normal. No congestion or rhinorrhea. Mouth/Throat: Mouth: Mucous membranes are moist. Pharynx: Oropharynx is clear. No oropharyngeal exudate or posterior oropharyngeal erythema. Eyes: General: Right eye: No discharge. Left eye: No discharge. Conjunctiva/sclera: Conjunctivae normal. Pupils: Pupils are equal, round, and reactive to light. Cardiovascular: Rate and Rhythm: Normal rate and regular rhythm. Pulses: Normal pulses. Heart sounds: Normal heart sounds. No murmur heard. No friction rub. Pulmonary: Effort: Pulmonary effort is normal. No respiratory distress. Breath sounds: Normal breath sounds. No stridor. No wheezing or rhonchi. Abdominal: General: Bowel sounds are normal. There is no distension. Palpations: Abdomen is soft. There is no mass. Tenderness: There is no abdominal tenderness. Hernia: No hernia is present. Musculoskeletal: General: No swelling, tenderness, deformity or signs of injury. Normal range of motion. Cervical back: Normal range of motion and neck supple. No rigidity or tenderness. Comments: Right lower paraspinal pain Skin: General: Skin is warm and dry. Capillary Refill: Capillary refill takes less than 2 seconds. Coloration: Skin is not jaundiced or pale. Findings: No bruising or erythema. Neurological: General: No focal deficit present. Mental Status: He is alert and oriented to person, place, and time. Cranial Nerves: No cranial nerve deficit. Sensory: No sensory deficit. Motor: No weakness. Coordination: Coordination normal. Psychiatric: Mood and Affect: Mood normal. Behavior: Behavior normal. Thought Content: Thought content normal. Judgment: Judgment normal. Labs and Studies Lab Results - No data to display No orders to display Orders and Treatments No orders of the defined types were placed in this encounter. Orders Placed This Encounter Medications ketorolac (TORADOL) injection 30 mg dexamethasone sod phos PF injection 10 mg Patient's Medications START taking these medications No medications on file CONTINUE taking these medications which have NOT CHANGED ALBUTEROL 90 MCG/ACTUATION INHALER Inhale 2 Puffs every 4 (four) hours as needed for Wheezing or Shortness of Breath. AZITHROMYCIN 250 MG TABLET Take 1 tablet by mouth in the morning. BENZONATATE 100 MG CAPSULE Take 1 capsule by mouth 3 (three) times daily as needed for Cough. DOXYCYCLINE HYCLATE 100 MG CAPSULE Take 1 capsule by mouth in the morning and 1 capsule in the evening. METHYLPREDNISOLONE (MEDROL, LAM,) 4 MG TABLETS Take by mouth SEE-INSTRUCTIONS. follow package directions MUPIROCIN 2 % OINTMENT Apply to area(s) 3 (three) times daily. NIRMATRELVIR-RITONAVIR 300 MG (150 MG X 2)-100 MG TABLET Take 3 tablets by mouth in the morning and 3 tablets in the evening. PANTOPRAZOLE 40 MG EC TABLET Take 1 tablet by mouth. TRAZODONE 150 MG TABLET Take 1 tablet by mouth. START taking Modified Medications as Prescribed No medications on file STOP taking these medications No medications on file Procedures Procedures Evidence Care MDM & Notes Patient was evaluated for an emergency medical condition related to LOW BACK PAIN Labs:were not ordered. Abnormal Labs Reviewed - No data to display Imaging:Was not ordered Diagnosis/Impression as of 08/12/23 1238 Acute right-sided low back pain without sciatica Medical Decision Making 33-year-old man comes to the emergency department for evaluation of right lower back pain radiating down to his leg. Symptoms started on Friday of last week denies bladder or bowel problems, no sensory changes. Pain is exacerbated with lower back movements. H/o GERD. BP (!) 125/92 | Pulse 93 | Temp 37 ?C (98.6 ?F) (Oral) | Resp 18 | Ht 1.829 m (6') | Wt 122.5 kg (270 lb) | SpO2 96% | BMI 36.62 kg/m? Differential diagnosis: Back pain, back strain, radiculopathy. Plan: Toradol IM, Decadron IM, Flexeril prescription. Problems Addressed: Acute right-sided low back pain without sciatica: complicated acute illness or injury Amount and/or Complexity of Data Reviewed Discussion of management or test interpretation with external provider(s): Course: 33-year-old male comes to the emergency department complaining of right lower paraspinal back pain of several days duration with pain radiating down the leg without bladder or bowel problems. Physical exam is positive for pain with leg elevation and palpation of the right lower paraspinal area. This is compatible with back strain/radiculopathy of the right lower back. Will start the patient on Flexeril orally advised to continue Tylenol and Motrin at home. In the emergency department a dose of Decadron and Toradol IM were given. Patient advised to follow with PCP and return to the emergency department if worsening of symptoms or if any other problems. Patient understands and agrees with the plan. Risk Prescription drug management. Pulse Oximetry: is not hypoxic. Interpreted. Reassessment:stable Limitations to patient care and compliance: none. Plan & Summary: Angel Chaney is a 33 year old male presenting for complaint(s) listed within the note. Patient has been deemed stable for discharge. Follow up with providers listed below for further evaluation and management. Return precautions given if symptoms worsen as documented in the discharge instructions. History, physical exam findings, results of visit, diagnosis, medication regimens and plan of future care have been considered. Additional MDM may be found in the ED course. Vital signs were rechecked before final disposition and determined to be stable. Disposition & Follow Up ED Disposition ED Disposition Disch - Home Condition Stable Comment -- Patient's Medications START taking these medications No medications on file CONTINUE taking these medications which have NOT CHANGED ALBUTEROL 90 MCG/ACTUATION INHALER Inhale 2 Puffs every 4 (four) hours as needed for Wheezing or Shortness of Breath. AZITHROMYCIN 250 MG TABLET Take 1 tablet by mouth in the morning. BENZONATATE 100 MG CAPSULE Take 1 capsule by mouth 3 (three) times daily as needed for Cough. DOXYCYCLINE HYCLATE 100 MG CAPSULE Take 1 capsule by mouth in the morning and 1 capsule in the evening. METHYLPREDNISOLONE (MEDROL, LAM,) 4 MG TABLETS Take by mouth SEE-INSTRUCTIONS. follow package directions MUPIROCIN 2 % OINTMENT Apply to area(s) 3 (three) times daily. NIRMATRELVIR-RITONAVIR 300 MG (150 MG X 2)-100 MG TABLET Take 3 tablets by mouth in the morning and 3 tablets in the evening. PANTOPRAZOLE 40 MG EC TABLET Take 1 tablet by mouth. TRAZODONE 150 MG TABLET Take 1 tablet by mouth. START taking Modified Medications as Prescribed No medications on file STOP taking these medications No medications on file Diagnoses ICD-10-CM 1. Acute right-sided low back pain without sciatica M54.50 Disposition and Condition ED Disposition ED Disposition Disch - Home Condition Stable Comment -- Patient's Medications START taking these medications No medications on file CONTINUE taking these medications which have NOT CHANGED ALBUTEROL 90 MCG/ACTUATION INHALER Inhale 2 Puffs every 4 (four) hours as needed for Wheezing or Shortness of Breath. AZITHROMYCIN 250 MG TABLET Take 1 tablet by mouth in the morning. BENZONATATE 100 MG CAPSULE Take 1 capsule by mouth 3 (three) times daily as needed for Cough. DOXYCYCLINE HYCLATE 100 MG CAPSULE Take 1 capsule by mouth in the morning and 1 capsule in the evening. METHYLPREDNISOLONE (MEDROL, LAM,) 4 MG TABLETS Take by mouth SEE-INSTRUCTIONS. follow package directions MUPIROCIN 2 % OINTMENT Apply to area(s) 3 (three) times daily. NIRMATRELVIR-RITONAVIR 300 MG (150 MG X 2)-100 MG TABLET Take 3 tablets by mouth in the morning and 3 tablets in the evening. PANTOPRAZOLE 40 MG EC TABLET Take 1 tablet by mouth. TRAZODONE 150 MG TABLET Take 1 tablet by mouth. START taking Modified Medications as Prescribed No medications on file STOP taking these medications No medications on file [employer] is used frequently and may produce errors. Promptly contact for obvious discrepancies. Willian Perez MD, FACEP, FAAEM Performance Test Architect of Emergency [facility] #[id number] Willian Perez MD 08/12/23 2055 T [facility] 2023-06-28 20:21:17 Pt discharged with diagnosis of raccoon bite. Printed and verbal instructions reviewed with and given to patient. Prescriptions given x 1. Pt verbalized understanding of teaching, medications, and recommended follow-up. Denies questions or concerns at this time. Pt ambulatory at discharge. Appears in no apparent distress. No ataxia noted. Accompanied by family member. Referral sent to for follow-up rabies vaccinations. [facility] 2023-06-28 19:48:06 Applied nonstick drsg and secured w/ kerlix. Educated on s/sx infection. Patient and able to teach back. Medicated per EMAR. Awaiting DC orders. T [facility] 2023-06-28 19:33:06 Order rec'd for 800 mg ibuprofen per provider. T [facility] 2023-06-28 18:50:00 Pt alert, color improved, A&OX4. remains in room. Medicated per EMAR. [facility] 2023-06-28 18:42:00 During infiltration of medication to left thumb by provider pt noted to hyperventilate, vagal down, and syncope. in room. Reclined chair for safety, applied cool compresses to neck and forehead. VSS, HR new but rising. RR even, unlabored. Pallor and diaphoresis noted during episode. [facility] 2023-06-28 17:45:00 Placed pt's left hand in sterile water and hibaclens soak. [facility] 2023-06-28 16:45:34 Patient states: "About 4 hours ago I was attacked by a raccoon." Reports bite to left thumb. Hazel Cote RN [facility] 2023-05-31 18:29:09 Pt given printed and verbal discharge instructions regarding right knee pain, encouraged hydration, NO Prescriptions provided Discussed ibuprofen and to take with food to avoid GI distress. Pt verbalized understanding of instructions, pt awake alert oriented, resp reg unlabored, skin w/d, color appropriate for race, moves all ext well,pt encouraged to follow up with pcp Advised to seek medical attention for new/prolonged/worsening of symptoms, No adverse reaction to meds given in ER noted upon discharge Awake, alert oriented, resp reg unlabored, skin w/d, pt leaving amb with steady gait, in no apparent distress, Viktoriya Frias RN [facility] 2023-05-31 17:03:57 Patient states: "About 3 weeks ago I fell on my right knee and it's been killing me ever since" Hazel Cote RN [facility] 2023-05-31 17:00:00 [facility] Emergency Department Note Patient Name: Angel Chaney Date of : 1990 33 year old male Treatment Room: [facility] ED [facility] Primary Care Physician: Gisella Lind Patient Escorted by: Family [5] Mode of Arrival: Personal means [1] EMS Treatment Prior to ED 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 Here for evaluation. Past Medical History/Immunizations: Past Medical History: Diagnosis Date GERD (gastroesophageal reflux disease) PUD (peptic ulcer disease) Tetanus received in last 5 years: Unknown Allergies: No Known Allergies Past Social History: Tobacco Use Every Day; Types: Cigarettes Passive Exposure: Current Smokeless Tobacco: Never used smokeless tobacco. Comments: Patient states that he uses vapes with nicotine in replace of cigarettes Vaping Use Never assessed Alcohol Use Yes. Comments: socially (once every few months) Drug Use Never. Past Surgical History: Past Surgical History: Procedure Laterality Date ESOPHAGOGASTRODUODENOSCOPY HB COLONSCOPY BALLOON DILATION Review of Systems: Review of Systems Constitutional: Negative for chills and fever. Respiratory: Negative for cough and shortness of breath. Cardiovascular: Negative for chest pain. Gastrointestinal: Negative for abdominal pain and vomiting. Genitourinary: Negative for dysuria. Musculoskeletal: Positive for arthralgias. Negative for neck pain and neck stiffness. Skin: Negative for wound. Neurological: Negative for dizziness. Psychiatric/Behavioral: Negative for agitation. Physical Exam: ED Triage Vitals [05/31/23 1704] Weight 123.8 kg (273 lb) Actual or estimated Estimated by patient/family report Height 1.829 m (6') BP (!) 145/85 Pulse 84 Resp 16 Temp 36.6 ?C (97.9 ?F) Temp source Oral SpO2 99 % Measured on Room air Physical Exam Vitals and nursing note reviewed. Constitutional: Appearance: Normal appearance. HENT: Head: Normocephalic and atraumatic. Mouth/Throat: Mouth: Mucous membranes are dry. Cardiovascular: Rate and Rhythm: Normal rate. Pulses: Normal pulses. Pulmonary: Effort: Pulmonary effort is normal. No respiratory distress. Abdominal: General: There is no distension. Musculoskeletal: General: Swelling present. Cervical back: Neck supple. Comments: Decreased range of motion of the right knee due to pain. Mild swelling about the right knee. Negative anterior and posterior drawer test on the right side. Skin: General: Skin is warm. Neurological: Mental Status: He is alert. Radiology: XR KNEE 3 VW RIGHT Final Result XR KNEE 3 VW RIGHT HISTORY: right knee pain COMPARISON: none available. Findings: The osseous structures are intact. Tricompartmental mild osteoarthrosis. Small knee joint effusion. Mild soft tissue edema. No abnormal soft tissue calcification. IMPRESSION No acute osseous abnormality. Lab Results: Lab Results - No data to display EKG: If EKG completed, see Procedure Note. Orders and Treatments: Orders Placed This Encounter Procedures XR KNEE 3 VW RIGHT Orders Placed This Encounter Medications HYDROcodone-acetaminophen (NORCO 5) 5-325 mg tablet 1 tablet First Provider Eval: ED Events Date/Time Event User Comments 05/31/231704 Medical Screening Begins INDIA DICKEY DO -- 05/31/231704 First Provider Evaluation INDIA DICKEY DO -- ED COURSE Diagnosis/Impression as of 05/31/231752 Acute pain of right knee Procedures: Procedures MDM: Medical Decision Making The patient presents from home for evaluation for right knee pain that has had for about 3 weeks since a mechanical fall. He has seen his PCP for this but has not had any imaging. He is using pain medications with reports of not helping. He reports the pain is better when he is resting and is worse with bending and movement. Vital signs are stable in the ER. Mild swelling about the right knee with slight decreased range of motion due to pain. He has a negative anterior and posterior drawer test on the right side. Low concern for fracture however will obtain an x-ray. Will also give the patient pain medication here in the ER. Anticipate discharge home later. 1751 - the patient is doing well here in the EC. Xray shows no acute osseous injuries. He was given crutches and an marisa wrap. Recommend f/u with pcp for possible outpatient MRI. He remains stable here in the EC and is ok for dc home with pcp f/u. Problems Addressed: Acute pain of right knee: acute illness or injury Amount and/or Complexity of Data Reviewed Radiology: ordered and independent interpretation performed. Decision-making details documented in ED Course. Risk OTC drugs. Prescription drug management. Flowsheet Documentation: Scoring Tools: No data recorded Disposition/Condition: ED Disposition ED Disposition Disch - Home Condition Stable Comment -- Discharge Medications: Patient's Medications START taking these medications No medications on file CONTINUE taking these medications which have NOT CHANGED ALBUTEROL 90 MCG/ACTUATION INHALER Inhale 2 Puffs every 4 (four) hours as needed for Wheezing or Shortness of Breath. AZITHROMYCIN 250 MG TABLET Take 1 tablet by mouth in the morning. BENZONATATE 100 MG CAPSULE Take 1 capsule by mouth 3 (three) times daily as needed for Cough. DOXYCYCLINE HYCLATE 100 MG CAPSULE Take 1 capsule by mouth in the morning and 1 capsule in the evening. METHYLPREDNISOLONE (MEDROL, LAM,) 4 MG TABLETS Take by mouth SEE-INSTRUCTIONS. follow package directions NIRMATRELVIR-RITONAVIR 300 MG (150 MG X 2)-100 MG TABLET Take 3 tablets by mouth in the morning and 3 tablets in the evening. PANTOPRAZOLE 40 MG EC TABLET Take 1 tablet by mouth. TRAZODONE 150 MG TABLET Take 1 tablet by mouth. START taking Modified Medications as Prescribed No medications on file STOP taking these medications No medications on file Follow-up: Electronically signed by: India Dickey DO 05/31/23 1753 [facility] 2023-05-23 09:19:11 Chief Complaint Patient presents with Knee Pain RIGHT KNEE PAIN FOR 12 YEARS. HE FELL LAST FRIDAY AND THE PAIN HAS FLARED UP. HE HAS NEVER HAD ANY TREATMENT FOR THE PAIN. NO XRAYS. Mitzi Paniagua MA II [facility] Mitzi Paniagua MA, II [facility] 2023-03-18 13:37:42 Patient discharged with diagnosis of bronchitis. Follow up with pcp. Take rx as prescribed. Verbalized understanding. [facility] 2023-03-18 12:36:21 Cough and sore throat x 1 week. 2 weeks ago he was diagnosed with covid. Coughing up dark green sputum. 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 James Malone RN [facility] 2023-02-28 20:53:41 Pt given printed and verbal discharge instructions regarding COVID-19 and sore throat Prescriptions provided Pt verbalized understanding of instructions, pt awake alert oriented, resp reg unlabored, skin w/d, color appropriate for race, moves all ext well,pt encouraged to follow up with pcp Advised to seek medical attention for new/prolonged/worsening of symptoms No adverse reaction to meds given in ER noted upon discharge Awake, alert oriented, resp reg unlabored, skin w/d, pt leaving amb with steady gait, in no apparent distress 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 Carmen Peña RN [facility] 2023-02-28 19:44:18 Pt presents with cold symptoms since last night, bodyaches, cough, sore throat and loss of taste and smell. E Ji RN [facility] 2022-09-28 11:03:07 Formatting of this n ote might be different from the original. Pt given printed and verbal discharge instructions regarding UTI, encouraged hydration, Prescriptions provided Discussed antibiotic therapy and to take until all completed unless adverse reaction occurs - if occurs, discontinue medication and follow up with pcp/seek medical attention Pt verbalized understanding of instructions, pt awake alert oriented, resp reg unlabored, skin w/d, color appropriate for race, moves all ext well,pt encouraged to follow up with pcp Advised to seek medical attention for new/prolonged/worsening of symptoms, Symptoms improved Awake, alert oriented, resp reg unlabored, skin w/d, pt leaving amb with steady gait, in no apparent distress, James Malone RN [facility] 2022-09-28 09:29:34 Formatting of this n ote might be different from the original. Patient reports that this morning he was [...] time of triage patient has no pain. T Viktoriya Frias RN [facility] 2022-09-25 09:52:48 Formatting of this n ote might be different from the original. Patient discharged home with written and verbal [...] steady gait out of the ER.Escorted by RN. Dionne Artis RN T [facility] 2022-09-25 07:38:45 Formatting of this n ote is different from the original. Patient's name and verified with patient. Chief Complaint Patient presents with Abdominal Pain Nausea Vomiting Patient ambulatory with steady gait with EC arrival. Patient is conscious and alert, with normal/unlabored breathing, and normal color/tone for ethnicity -oriented to name, time, place, and situation. GCS 15. Patient reports he has been experiencing abdominal pain ~1 week (points to r/l lower quadrants when describing pain) - also mentions nausea and vomiting. Patient denies diarrhea, fever, chills, chest pain and shortness of breath. Abdomen soft and non tender with palpation. No past medical history on file. Stomach ulcers, per patient. No known allergies. Vitals obtained. Assessment performed. IV in place and patent. Placed on continuous spo2/cardiac monitoring, HR 87 Bed low and locked, secured with two rails, call light within reach. Belongings at bedside. Patient aware of plan of care. Dionne Preble, RN [facility] 2022-09-25 07:08:48 Formatting of this n ote might be different from the original. Abd pain ~ 1 week with occasional nausea/vomiting - last emesis episode this morning prior to ER arrival. Points to R/L lower abdominal pain when describing pain. Denies shortness of breath , chest pain, fever, chills, and diarrhea. Hx - Ulcers Dionne Artis RN [facility] 2022-09-06 13:52:37 Formatting of this n ote might be different from the original. Patient is here for intermittent rectal bleeding [...] having at this time. VSS, medications reconciled. T [facility]
[2023-10-18] MEDS ORDERED: ONDANSETRON 4 MG/2 ML VIAL ONE (06:10)
[2023-10-18] MEDS ORDERED: MORPHINE 2 MG/ML SYR ONE (06:10)
[2023-10-18] MEDS ORDERED: MORPHINE 4 MG/ML SYR ONE (06:10)
[2023-10-18] MEDS ORDERED: KETOROLAC 30 MG/ML INJ ONE (06:10)
[2023-10-18] MEDS ORDERED: CEFTRIAXONE 1000 MG/VIAL ONE (06:10)
[2023-10-18] MEDS ORDERED: NA CHLORIDE 0.9% 2,000 ML ONE (06:11)
[2023-10-18 06:33] LABS: Absolute Eosinophils 0.1 K/uL (0-0.5); Absolute Lymphocytes (CBC) 1.6 K/uL (0.7-4.9); Absolute Monocytes 0.6 K/uL (0.1-1.3); Absolute Neutrophil 6.4 K/uL (1.8-8.0); Basophils % 0.2 % (0-1.3); Eosinophils % 1.6 % (0-4.4); Hemoglobin 13.5 g/dL (13.6-17.9); Lymphocytes % 18.4 % (15.3-44.8); MCV 84.7 fL (80-100); MPV 10.1 fL (7.6-11.3); Monocytes % 7.2 % (3.3-12.3); Neutrophils % 72.6 % (41.7-73.7); Platelets 197 thou/uL (152-406); RBC Red Blood Cell Count 4.84 M/uL (4.33-5.43); Red Cell Distribution Width 13.9 % (12.1-15.2)
[2023-10-18 06:35] LABS: Calcium Oxalate Crystals- Ur Few /HPF (None Seen); Specific Gravity > 1.030 (1.005-1.030); Sqamous Epithelial <5 /HPF (None Seen); Urine Bacteria None Seen /HPF (<20); Urine Bilirubin NEGATIVE (Negative); Urine Blood Negative (Negative); Urine Clarity Clear (Clear); Urine Color Yellow (Yellow); Urine Culture Reflex Order NOT NEEDED; Urine Glucose NEGATIVE (Negative); Urine Ketones NEGATIVE (Negative); Urine Microscopic Reflex YN ORDER UMIC; Urine Mucus 2+ /HPF (None Seen); Urine Nitrite NEGATIVE (Negative); Urine Protein TRACE (Negative); Urine RBC None Seen /HPF (None Seen); Urine Urobilinogen Normal (Normal); Urine WBC <5 /HPF (<5)
[2023-10-18 06:48] LABS: Albumin 3.7 g/dL (3.4-5.0); Albumin/Globulin Ratio 1.2 (1.1-1.8); Anion Gap 7.8 mEq/L (5.0-15.0); Bilirubin Total 0.3 mg/dL (0.2-1.0); Globulin 3.1 g/dL (2.3-3.5); Potassium 3.8 mEq/L (3.5-5.1); Protein, Total 6.8 g/dL (6.4-8.2)
--- NOTE | 2023-10-18 07:40 | RAD REPORT ---
EXAM DESCRIPTION: CT - Abdomen Pelvis W Contrast - 10/18/2023 7:29 am CLINICAL HISTORY: Abdominal pain/rectal pain COMPARISON: 2021 TECHNIQUE: Computed axial tomography of the abdomen pelvis was obtained. 100 cc Isovue-300 was admin istered intravenously. Oral contrast was not requested which limits evaluation of bowel and appendix All CT scans are performed using dose optimization technique as appropriate and may include automated exposure control or mA/KV adjustment according to patient size. FINDINGS: Fatty liver Spleen, pancreas, adrenal and kidneys appear unremarkable. There is no evidence of diverticulitis. Normal appendix Spondylolysis L5. Mild anterior subluxation L5 on S1. Tiny umbilical hernia Small right inguinal hernia contains fat Mild rectal wall thickening IMPRESSION: Mild rectal wall thickening could be secondary to incomplete distention or mild inflamma tion
--- NOTE | 2023-10-18 08:26 | ER ---
Nurse's Notes [facility] Name: Angel Osborne Age: 33 yrs Sex: Male : 1990 Arrival Date: 10/18/2023 Time: 04:58 Bed 6 Private MD: Inocencio Spencer Diagnosis: Rectal pain Presentation: 10/17 05:17 Chief complaint: Patient states: hemorrhoidectomy by Dr. Partida about 2 weeks ago, vc1 The pain is really bad and the incision is open. 05:17 Coronavirus screen: Client denies travel out of the [place] in the last 14 days. At this vc1 time, the client does not indicate any symptoms associated with coronavirus-19. Ebola Screen: Patient negative for fever greater than or equal to 101.5 degrees Fahrenheit, and additional compatible Ebola Virus Disease symptoms Patient denies exposure to infectious person. Patient denies travel to an Ebola-affected area in the 21 days before illness onset. No symptoms or risks identified at this time. Initial Sepsis Screen: Does the patient meet any 2 criteria? No. Patient's initial sepsis screen is negative. Does the patient have a suspected source of infection? No. Patient's initial sepsis screen is negative. Risk Assessment: Do you want to hurt yourself or someone else? Patient reports no desire to harm self or others. Onset of symptoms is unknown. 05:17 Method Of Arrival: Ambulatory vc1 05:17 Acuity: MIKE 3 vc1 Triage Assessment: 05:44 General: Appears in no apparent distress. uncomfortable, Behavior is calm, cooperative, vc1 appropriate for age. Pain: Complains of pain in anus Pain currently is 10 out of 10 on a pain scale. GI: Reports pain from hemorrhoidectomy. Derm: Skin is intact, is healthy with good turgor, Skin is dry, Skin is normal, Skin temperature is warm Wound noted. Historical: - Allergies: 05:42 NKA; vc1 - Home Meds: 05:42 None [Active]; vc1 - PMHx: 05:42 Depression; hemorrhoids; vc1 - PSHx: 05:42 Hemorrhoidectomy; vc1 - Immunization history:: Client reports receiving the 2nd dose of the Covid vaccine. - Infectious Disease History:: Denies. - Social history:: Smoking status: Reported history of juuling and/or vaping. - Family history:: not pertinent. Screenin:42 [facility] ED Fall Risk Assessment (Adult) History of falling in the last 3 months, vc1 including since admission No falls in past 3 months (0 pts) Confusion or Disorientation No (0 pts) Intoxicated or Sedated No (0 pts) Impaired Gait No (0 pts) Mobility Assist Device Used No (0 pt) Altered Elimination No (0 pt) Score/Fall Risk Level 0 - 2 = Low Risk Oriented to surroundings, Maintained a safe environment, Educated pt \T\ family on fall prevention, incl call for assistance when getting out of bed. Abuse screen: Denies threats or abuse. Nutritional screening: No deficits noted. Tuberculosis screening: No symptoms or risk factors identified. Assessment: 05:55 General: Provider at the bedside. Pt reports using one perineal pad per day and is not kd3 saturating the pad. Yellow discharge is noted at the surgical site. Pt report extreme pain in the cary anal area. . Neuro: Level of Consciousness is awake, alert, obeys commands, Oriented to person, place, time, situation. Cardiovascular: Patient's skin is warm and dry. Respiratory: Airway is patent Trachea midline Respiratory effort is even, unlabored, Respiratory pattern is regular, symmetrical. GI: No deficits noted. : No deficits noted. Vital Signs: 05:17 BP 123 / 91; Pulse 85; Resp 18; Temp 97; Pulse Ox 97% ; Weight 122.47 kg; Height 6 ft. vc1 0 in. ; Pain 10/10; 05:56 BP 129 / 79; Pulse 88; Resp 16; Pulse Ox 98% on R/A; kd3 06:30 BP 123 / 95; Pulse 67; Resp 18; Pulse Ox 96% on R/A; kd3 07:13 BP 119 / 76; Pulse 52; Resp 16; Pulse Ox 95% ; ko1 08:35 BP 121 / 74; Pulse 61; Resp 16; Pulse Ox 94% ; ko1 05:17 Body Mass Index 36.62 (122.47 kg, 182.88 cm) vc1 05:17 Pain Scale: Adult vc1 [place] Coma Score: 06:14 Eye Response: spontaneous(4). Motor Response: obeys commands(6). Verbal Response: sp4 oriented(5). Total: 15. ED Course: 05:07 Patient arrived in ED. gm2 05:08 Inocencio Spencer DO is Private Physician. gm2 05:12 Nimesh Gavin MD is Attending Physician. sp4 05:42 Triage completed. vc1 05:42 Arm band placed on right wrist. vc1 05:43 Patient has correct armband on for positive identification. Bed in low position. Call vc1 light in reach. 05:54 Mary Ellen Hernandez, RN is Primary Nurse. kd3 06:06 No provider procedures requiring assistance completed. Inserted saline lock: 20 gauge kd3 in right antecubital area, using aseptic technique. Blood collected. Flushed with 10 mL NS. 06:06 CBC with Diff Sent. kd3 06:06 CMP Sent. kd3 06:06 Lipase Sent. kd3 06:29 Urinalysis w/ reflexes Sent. kd3 06:30 Initial lab(s) drawn, by me, sent to lab. Urine collected: clean catch specimen, clear. kd3 06:59 Attending Physician role handed off by Nimesh Gavin MD rt 06:59 Matteo Brown MD is Attending Physician. rt 07:13 Provided Education on: call light. ko1 07:30 CT Abd/Pelvis - IV Contrast Only In Process Unspecified. EDMS 08:26 Cody Partida MD is Referral Physician. rt 08:35 IV discontinued, intact, bleeding controlled, No redness/swelling at site. Pressure ko1 dressing applied. Administered Medications: 06:29 Drug: Rocephin - Rocephin (cefTRIAXone) IVPB 1 grams IVPB once over 30 mins; (mix in 50 kd3 mL NS) Route: IVPB; Infused Over: 30 mins; Site: right antecubital; 07:00 Follow up: Response: No adverse reaction; IV Status: Completed infusion; IV Intake: [id number] 06:29 Drug: morphine IVP or IV 6 mg IVP once over 4 mins Route: IVP; Infused Over: 4 mins; kd3 Site: right antecubital; 07:00 Follow up: Response: No adverse reaction ko1 06:29 Drug: Ondansetron IVP 4 mg IVP once; over 2 minutes Route: IVP; Site: right antecubital;kd3 07:00 Follow up: Response: No adverse reaction ko1 06:29 Drug: Ketorolac IVP 30 mg IVP once Route: IVP; Site: right antecubital; kd3 07:00 Follow up: Response: No adverse reaction ko1 06:30 Drug: NS 0.9% IV 1000 ml IV at 1 bolus Per protocol; 1000 mL bolus Route: IV; Rate: 1 kd3 bolus; Site: right antecubital; 08:37 Follow up: Response: No adverse reaction; IV Status: Completed infusion; IV Intake: ko1 1000ml 06:30 Drug: NS 0.9% IV 1000 ml IV at 125 ml/hr continuous Route: IV; Rate: 125 ml/hr; Site: kd3 right antecubital; 08:36 Follow up: Response: No adverse reaction; IV Status: Order to discontinue infusion; IV ko1 Intake: 250ml Medication: 05:56 VIS not applicable for this client. kd3 Intake: 07:00 IV: 50ml; Total: 50ml. ko1 08:36 IV: 250ml; Total: 300ml. ko1 08:37 IV: 1000ml; Total: 1300ml. ko1 Outcome: 08:26 Discharge ordered by . rt 08:47 Discharged to home ambulatory, ko1 08:47 Condition: stable 08:47 Discharge instructions given to patient, Instructed on discharge instructions, follow up and referral plans. Demonstrated understanding of instructions, follow-up care, medications, Prescriptions given X 1, 08:47 Patient left the ED. ko1 Signatures: Dispatcher [employer] EDMS Mary Ellen Hernandez RN RN kd3 Chio Lopez RN RN vc1 Alexandrea Alaniz RN RN ko1 Matteo Brown MD MD rt Nimesh Gavin MD MD sp4 Jennifer Thompson 2
--- NOTE | 2023-10-18 08:27 | EDPHYS ---
Physician Documentation [facility] Name: Angel Osborne Age: 33 yrs Sex: Male : 1990 Arrival Date: 10/18/2023 Time: 04:58 Bed 6 Private MD: Inocencio Spencer ED Physician Matteo Brown HPI: 10/17 05:12 This 33 yrs old Male presents to ER via Unassigned with complaints of Rectal sp4 Pain. 06:14 Patient presents with worsening anal pain associated with yellowish discharge starting sp4 yesterday.. Patient reports hemorrhoidectomy on 10/06/[address] Cody Partida. Old record reveals - 10/06/2023 Surgeon: Cody Partida MD Preoperative Diagnosis: Tender prolapsed thrombosed hemorrhoid. Postoperative Diagnoses: Tender prolapsed thrombosed hemorrhoid, internal and external hemorrhoids. Procedures: Exam under anesthesia, anoscopy, rigid proctoscopy, external left posterolateral hemorrhoidectomy.. Historical: - Allergies: 05:42 NKA; vc1 - Home Meds: 05:42 None [Active]; vc1 - PMHx: 05:42 Depression; hemorrhoids; vc1 - PSHx: 05:42 Hemorrhoidectomy; vc1 - Immunization history:: Client reports receiving the 2nd dose of the Covid vaccine. - Infectious Disease History:: Denies. - Social history:: Smoking status: Reported history of juuling and/or vaping. - Family history:: not pertinent. ROS: 06:14 Constitutional: Negative for fever, chills, and weight loss, positive for rectal and sp4 anal pain, positive discharge from anus 06:14 All other systems are negative, Exam: 06:14 Constitutional: This is a well developed, well nourished patient who is awake, alert, sp4 and in no acute distress. Head/Face: Normocephalic, atraumatic. Eyes: Pupils equal round and reactive to light, extra-ocular motions intact. Lids and lashes normal. Conjunctiva and sclera are not injected. Cornea within normal limits. Periorbital areas with no swelling, redness, or edema. ENT: Nares patent. No nasal discharge, no septal abnormalities noted. Tympanic membranes are normal and external auditory canals are clear. Oropharynx with no redness, swelling, or masses, exudates, or evidence of obstruction, uvula midline. Mucous membranes moist. Neck: Trachea midline, no thyromegaly or masses palpated, and no cervical lymphadenopathy. Supple, full range of motion without nuchal rigidity, or vertebral point tenderness. Chest/axilla: Normal chest wall appearance and motion. Nontender with no deformity. No lesions are appreciated. Cardiovascular: Regular rate and rhythm with a normal S1 and S2. No gallops, murmurs, or rubs. Normal PMI, no JVD. No pulse deficits. Respiratory: Lungs have equal breath sounds bilaterally, clear to auscultation and percussion. No rales, rhonchi or wheezes noted. No increased work of breathing, no retractions or nasal flaring. Abdomen/GI: Soft, with normal bowel sounds. No distension or tympany. No guarding or rebound. No evidence of tenderness throughout. Rectal exam reveals site of hemorrhoidectomy that appears to be developing anal fissure associated with yellowish discharge. No obvious abscess however significant amount of purulent discharge present. No sign of a mass no sign of additional prolapsed hemorrhoid. Back: No spinal tenderness. No costovertebral tenderness. Skin: Warm, dry with normal turgor. Normal color with no rashes, no lesions, and no evidence of cellulitis. MS/ Extremity: Pulses equal, no cyanosis. Neurovascular intact. Full, normal range of motion. Neuro: Awake and alert, GCS 15, oriented to person, place, time, and situation. Cranial nerves II-XII grossly intact. Motor strength 5/5 in all extremities. Sensory grossly intact. Psych: Awake, alert, with orientation to person, place and time. Behavior, mood, and affect are within normal limits Vital Signs: 05:17 BP 123 / 91; Pulse 85; Resp 18; Temp 97; Pulse Ox 97% ; Weight 122.47 kg; Height 6 ft. vc1 0 in. ; Pain 10/10; 05:56 BP 129 / 79; Pulse 88; Resp 16; Pulse Ox 98% on R/A; kd3 06:30 BP 123 / 95; Pulse 67; Resp 18; Pulse Ox 96% on R/A; kd3 07:13 BP 119 / 76; Pulse 52; Resp 16; Pulse Ox 95% ; ko1 08:35 BP 121 / 74; Pulse 61; Resp 16; Pulse Ox 94% ; ko1 05:17 Body Mass Index 36.62 (122.47 kg, 182.88 cm) vc1 05:17 Pain Scale: Adult vc1 [place] Coma Score: 06:14 Eye Response: spontaneous(4). Motor Response: obeys commands(6). Verbal Response: sp4 oriented(5). Total: 15. MDM: 06:09 Patient medically screened. sp4 06:14 Differential diagnosis: hemorrhoids, fissure, abscess, pilonidal cyst, condyloma. Data sp4 reviewed: vital signs, nurses notes, old medical records, lab test result(s), radiologic studies, CT scan. Transition of care: After a detail discussion of the patient's case, care is transferred to Matteo Brown MD. 10:12 ED course: Assumed care at shift change. Only mild inflammation, no abscess on CT scan, rt labs are benign. I reevaluated the wound. There is an apparent anal fissure, small mount of whitish discharge, no clear purulence on my examination. I discussed the case with Dr. Partida, states no further interventions are indicated this time, will follow patient next week in the office.. 10/17 06:00 Order name: CBC with Diff; Complete Time: 06:59 sp4 10/17 06:00 Order name: CMP; Complete Time: 06:59 sp4 10/17 06:00 Order name: Lipase; Complete Time: 06:59 sp4 10/17 06:00 Order name: Urinalysis w/ reflexes; Complete Time: 06:59 sp4 10/17 06:00 Order name: CT Abd/Pelvis - IV Contrast Only; Complete Time: 07:41 sp4 10/17 06:00 Order name: IV Saline Lock; Complete Time: 06:06 sp4 10/17 06:00 Order name: Labs collected and sent; Complete Time: 06:06 sp4 Administered Medications: 06:29 Drug: Rocephin - Rocephin (cefTRIAXone) IVPB 1 grams IVPB once over 30 mins; (mix in 50 kd3 mL NS) Route: IVPB; Infused Over: 30 mins; Site: right antecubital; 07:00 Follow up: Response: No adverse reaction; IV Status: Completed infusion; IV Intake: [id number] 06:29 Drug: morphine IVP or IV 6 mg IVP once over 4 mins Route: IVP; Infused Over: 4 mins; kd3 Site: right antecubital; 07:00 Follow up: Response: No adverse reaction ko1 06:29 Drug: Ondansetron IVP 4 mg IVP once; over 2 minutes Route: IVP; Site: right antecubital;kd3 07:00 Follow up: Response: No adverse reaction ko1 06:29 Drug: Ketorolac IVP 30 mg IVP once Route: IVP; Site: right antecubital; kd3 07:00 Follow up: Response: No adverse reaction ko1 06:30 Drug: NS 0.9% IV 1000 ml IV at 1 bolus Per protocol; 1000 mL bolus Route: IV; Rate: 1 kd3 bolus; Site: right antecubital; 08:37 Follow up: Response: No adverse reaction; IV Status: Completed infusion; IV Intake: ko1 1000ml 06:30 Drug: NS 0.9% IV 1000 ml IV at 125 ml/hr continuous Route: IV; Rate: 125 ml/hr; Site: kd3 right antecubital; 08:36 Follow up: Response: No adverse reaction; IV Status: Order to discontinue infusion; IV ko1 Intake: 250ml Disposition Summary: 10/18/23 08:26 Discharge Ordered Notes: Location: Home rt Problem: an ongoing problem rt Symptoms: have improved rt Condition: Stable rt Diagnosis - Rectal pain rt Followup: rt - With: Cody Partida MD - When: 2 - 3 days - Reason: Discharge Instructions: - Discharge Summary Sheet rt - Hemorrhoids rt Forms: - Medication Reconciliation Form rt - Antibiotic Education rt - Prescription Opioid Use rt - Patient Portal Instructions rt - Leadership Thank You Letter rt Prescriptions: - Tramadol 50 mg Oral Tablet - take 1 tablet ORAL route every 8 hours as needed; 12 tablet; Refills: 0, rt Product Selection Permitted Signatures: Dispatcher [facility] Mary Ellen Cisneros RN RN kd3 Chio Lopez RN RN vc1 Matteo Brown MD MD rt Nimesh Gavin MD MD sp4 Alexandrea Alaniz RN ko1 Corrections: (The following items were deleted from the chart) 06:00 06:00 CBC+H.LAB.BRZ ordered. EDMS EDMS 06:00 06:00 COMPREHENSIVE METABOLIC PANEL+C.LAB.BRZ ordered. EDMS EDMS 06:00 06:00 LIPASE+C.LAB.BRZ ordered. EDMS EDMS 06:00 06:00 Urinalysis+U.LAB.BRZ ordered. EDMS EDMS 06:00 06:00 Abdomen Pelvis W Con+CT.RAD.BRZ ordered. EDMS EDMS
[2023-10-18 08:52] VITALS: TEMP 97
[2023-10-18 08:58] VITALS: BP 121/74; O2SAT 94
== END 2023-10-18 08:47 | disposition home or self-care (01) ==
LOC: ER 04:58
DX: K62.89 Other specified diseases of anus and rectum (principal); Z98.890 Other specified postprocedural states
CPT/HCPCS: 96365; 96361; 85025; 81001; 36415; 83690; 80053; 74177; 96375; 99284; Q9967; J2270; J2405; J7030; J0696

== ENCOUNTER 2024-01-19 13:01 | Emergency (ER) | payer BC ==
--- OUTSIDE RECORDS SUMMARY | 2024-01-19 13:06 | XMS REPORT | Continuity of Care Document ---
Author Name Unknown Address [address] [facility] Jose Carlos. [address] [place] [address] [facility] thconnect Address [address] [facility]. [address] [place] [address] Care Team Providers Care Architect In Training Name Role Phone Diogo BENDER, Gisella De Paz Primary Care Physician PIPPA REYNOSO Attending Clinician Unavailable MELIZA BENNETT Attending Clinician Unavailabl e LAB90 Attending Clinician Unavailable MD JESUS Attending Clinician Unavailab JOHN Moser Attending Clinician Unavailable JULIANA BAIRD Attending Clinician Unavailable JULIANA BAIRD Attending Clinician Unavailable Juliana Baird DO Attending Clinician [phone] RADHA HERNANDES Attending Clinician Unavailable WILLIAN PEREZ Attending Clinician Unavailable WILLIAN PEREZ Attending Clinician Unavailable LEEANN MCCOY Attending Clinician Unavailable [facility] Attending Clinician Un available EbLeeann Ruth Attending Clinician [phone] Unknown, Attending Attending Clinician Unavailab NO Guido Attending Clinician Unavailable No Nur MD Attending Clinician [phone] Kayla LIVINGSTON Attending Clinician Unavailable Darryl Owens MD Attending Clinician [phone] Kayla Scherer Attending Clinician [phone] JENY HAIDER Attending Clinician Unavailable INDIA DICKEY Attending Clinician Unavailab India Small DO Attending Clinician +[phone] GISELLA LIND Attending Clinician Unava ilBANDAR Wills Attending Clinician Unavailable Bandar Richardson DO Attending Clinician + LINDA SANFORD Attending Clinician Unavailab rica Sanford SCIENTIFIC ARTIST, Linda Merritt Attending Clinician +[phone] SHAE GILLESPIE Attending Clinician Unavailable Shae Gillespie MD Attending Clinician + IVONNE SHULTZ Attending Clinician Unavailable Ivonne Shultz NP Attending Clinician + KACIE QUIROZ Attending Clinician Unavailable Doctor Unassigned, [place] Attending Clinician U navailHAYDEN Marshall Attending Clinician Unavailable Jose Guadalupe Meraz MD Attending Clinician [phone] Hayden Braswell MD Attending Clinician [phone] CECIL CHATMAN Attending Clinician Unavailable MARAL GAMBLE Attending Clinician Unavailab Maral Wilson DO Attending Clinician +[phone] KAIN RAJPUT Attending Clinician Unavailable Regulo SCIENTIFIC ARTISTKain Jaramillo Attending Clinician +[phone] IGGY WELLER Attending Clinician Unavaila edelmira Weller ACNIggy Jaramillo Attending Clinician + [phone] MIHAI HAHN Attending Clinician Unavailable HARDY ZAVALA Attending Clinician UnavailHardy Casillas MD Attending Clinician + [phone] PARVEEN Attending Clinician Unavailable Gisella Lind MD Attending Clinician [phone] INDIA DICKEY Admitting Clinician Unavailab BANDAR Pace Admitting Clinician Unavailable IVONNE SHULTZ Admitting Clinician Unavailable HAYDEN BRASWELL Admitting Clinician Unavailable Hayden Braswell MD Admitting Clinician PARVEEN Admitting Clinician Unavailable Kayla LIVINGSTON Admitting Clinician Unavailable Payers Payer Name Policy Type Policy Number Effective Date Expirati on Date Source [facility] 9 [id number] 2023 00:00:00 [facility] [id number] 00:00:00 Problems Condition Name Condition Details Condition Category Status Onset Date Resolution Date Last Treatment Date Treating Clinician Comments Source Chest pain Chest pain Disease Active 2022-02 00:00: 00 [facility] Obesity (BMI 30-39.9) Obesity (BMI 30-39.9) Disease Active 2022-02 00:00: 00 [facility] No known active problems No known active problems Disease Univers [facility] Allergies, Adverse Reactions, Alerts Allergy Name Allergy Type Status Severity Reaction(s) Onset Date Inactive Date Treating Clinician Comments Source NO KNOWN ALLERGIE S Drug Class Active [facility] Social History Social Habit Start Date Stop Date Quantity Comments Source Gender identity [facility] Sexual orientation U [facility] History of tobacco use Passive smoker [facility] Alcoholic beverage intake 2023-07-12 00:00:00 2023-07-12 00:00:00 Current drinker of alcohol (finding) [facility] Alcohol intake 2023-05-31 00:00:00 2023-05-31 00:00:00 Current drinker of alcohol (finding) [facility] History of Social function 2022-11-20 00:00:00 2022-11-20 00:00:00 [facility] Tobacco use and exposure 2022-11-19 00:00:00 2022-11-19 00:00:00 Smokeless tobacco non-user [facility] Tobacco Comment 2022-11-19 00:00:00 2022-11-19 00:00:00 Patient states that he uses vapes with nicotine in replace of cigarettes [facility] Alcohol Comment 2022-11-19 00:00:00 2022-11-19 00:00:00 socially (once every few months) [facility] Exposure to SARS-CoV-2 (event) 2022-02-18 00:00:00 2022-02-28 15:26:00 Not sure [facility] Sex assigned at 1990 00:00:00 1990 00:00:00 [facility] Smoking Status Start Date Stop Date Source Tobacco smoking consumption unknown [facility] Smokes tobacco daily 2022-09-06 00:00:00 Joseline Bean - External Medications Ordered Medication Name Filled Medication Name Start Date Stop Date Current Medication? Ordering Clinician Indication Dosage Frequency Signature (SIG) Comments Components Source linaCLOtide (Linzess) 145 MCG oral Capsule 09-30 00:00: 00 Yes [id number] 145ug QD Take 1 capsule (145 mcg total) by mouth daily. Joseline trejo hydrocortis one 25 mg suppository 09-30 00:00: 00 Yes [id number] 25mg Insert 1 Suppositor y into rectum in the morning and 1 Suppositor y in the evening. [facility] dibucaine 1 % ointment 09-30 00:00: 00 Yes [id number] Apply to area(s) 3 (three) times daily as needed for Pain (scale 4-6) or Pain (scale 7-10). [facility] Pantoprazol e Sodium 40 MG oral Tablet Delayed Response 09-01 00:00: 00 Yes [id number] 40mg QD take 1 tablet by mouth every day Joseline trejo dexamethaso ne sod phos PF injection 10 mg 08-11 17:30: 00 08-11 17:20 :00 No 10mg 10 mg, Intramuscu lar, ONCE, 1 dose, On Fri08/12/23 at 1230, 1 mL [facility] ketorolac (TORADOL) injection 30 mg 08-11 17:30: 00 08-11 17:22 :00 No 30mg 30 mg, Intramuscu lar, ONCE, 1 dose, On Fri08/12/23 at 1230, POLA [facility] ibuprofen (IBU) tablet 800 mg 06-28 00:45: 00 06-28 00:34 :00 No 800mg 800 mg, Oral, ONCE, 1 dose, On 06/28/23 at 1945, POLA [facility] rabies immune globulin (PF) (HYPERRAB (PF)) injection 2,481 Units 06-27 23:45: 00 06-27 23:51 :00 No 20U/kg 2,481 Units (rounded from 2,480 Units = 20 Units/kg ?124 kg), Intramuscu lar, ONCE, 1 dose, On 06/28/23 at 1845, Routine [facility] mupirocin 2 % ointment 06-27 00:00: 00 Yes [id number] Apply to area(s) 3 (three) times daily. [facility] HYDROcodone -acetaminop hen (NORCO 5) 5-325 mg tablet 1 tablet 05-30 22:15: 00 05-30 22:36 :00 No 1{tbl} 1 tablet, Oral, ONCE, 1 dose, On 05/31/23 at 1715, [facility] Valacyclovi r HCl (Valtrex) 500 MG oral Tablet 05-23 00:00: 00 09-30 00:00 :00 No [id number] 500mg Q.5D Take 1 tablet (500 mg total) by mouth 2 times daily. Joseline trejo methylPREDN ISolone 4 MG oral Tablet Therapy Pack 05-22 00:00: 00 09-30 00:00 :00 No [id number] 1{lam} Take 1 lam by mouth See Admin Instructio ns Use as directed. Joseline trejo Celecoxib (CeleBREX) 200 MG oral Capsule 05-22 00:00: 00 09-30 00:00 :00 No [id number] 200mg Q.5D Take 1 capsule (200 mg total) by mouth 2 times daily. Joseline trejo Trazodone HCl 150 MG oral Tablet 03-22 00:00: 00 Yes [id number] 150mg QD Take 1 tablet (150 mg total) by mouth nightly. Joseline trejo benzonatate 100 mg capsule 03-18 00:00: 00 Yes [id number] 100mg Take 1 capsule by mouth 3 (three) times daily as needed for Cough. [facility] azithromyci n 250 mg tablet 03-18 00:00: 00 Yes [id number] 250mg Take 1 tablet by mouth in the morning. [facility] methylPREDN ISolone (MEDROL, LAM,) 4 mg tablets 03-18 00:00: 00 Yes [id number] Take by mouth SEE-INSTRU CTIONS. follow package directions [facility] ibuprofen (IBU) tablet 600 mg 03-01 02:00: 00 03-01 01:58 :00 No 600mg 600 mg, Oral, ONCE, 1 dose, On Fri02/28/23 at 2000, POLA [facility] benzonatate 100 mg capsule 02-28 00:00: 00 Yes [id number] 100mg Take 1 capsule by mouth 3 (three) times daily as needed for Cough. [facility] Albuterol HFA 108 (90 Base) MCG/ACT [...] 02-28 00:00: 00 03-06 05:59 :00 No [id number] 4mg Take 1 tablet by mouth every 8 (eight) hours as needed for Nausea and Vomiting (N/V) for up to 5 days. [facility] cefTRIAXone (ROCEPHIN) injection 500 mg 2022-02 08:30: 00 Yes 500mg 500 mg, Intramuscu lar, Q24H, First dose on 01/11/23 at 0230, Until Discontinu ed, POLA
Re ason for Anti-Infec tive: Empiric Therapy for Suspected Infection< br>Empiric Therapy Site: Urine
D uration of therapy: Once (ED) [facility] acetaminoph en (TYLENOL) tablet 650 mg 2022-02 07:30: 00 01-11 07:32 :00 No 650mg 650 mg, Oral, ONCE, 1 dose, On 01/11/23 at 0130, POLA [facility] Doxycycline Hyclate 100 MG oral Capsule 2022-02 00:00: 00 05-22 00:00 :00 No 100mg Take 1 capsule (100 mg total) by mouth 2 times daily. Joseline trejo ondansetron 4 mg disintegrat ing tablet 2022-02 00:00: 00 02-28 00:00 :00 No [id number] 4mg Take 1 tablet by mouth every 8 (eight) hours as needed for Nausea and Vomiting (N/V). [facility] Pantoprazol e Sodium 40 MG oral Tablet Delayed Response 2022-02 00:00: 00 Yes [id number] 40mg TAKE 1 TABLET BY MOUTH EVERY DAY Joseline trejo sulfur hexafluorid e microsphr (LUMASON) injection 5 mL 2022-02 16:15: 00 11-20 16:15 :00 No [id number] 5mL 5 mL, Intravenou s, ONCE, 1 dose, On Fri11/20/22 at 1115, Routine
construction crew member approving Restricted medication : HAYDEN BRASWELL [facility] pantoprazol e (PROTONIX) EC tablet 40 mg 2022-02 14:00: 00 Yes 40mg 40 mg, Oral, DAILY, First dose on Fri11/20/22 at 0900, Until Discontinu ed, Routine [facility] sennosides- docusate sodium (SENOKOT-S) 8.6-50 mg per tablet 1 tablet 2022-02 14:00: 00 Yes 1{tbl} 1 tablet, Oral, DAILY, First dose on Fri11/20/22 at 0900, Until Discontinu ed, Routine [facility] HYDROcodone -acetaminop hen (NORCO 5) 5-325 mg tablet 1 tablet 2022-02 03:15: 00 11-20 02:44 :00 No 1{tbl} 1 tablet, Oral, ONCE, 1 dose, On Fri11/19/22 at 2215, Routine [facility] ondansetron (ZOFRAN (PF)) injection 4 mg 2022-02 03:09: 48 Yes 4mg 4 mg, Slow IV Push, Q6HPRN, Nausea and Vomiting (N/V), Starting on Fri11/19/22 at 2209
Do ses of ondansetro n 16 mg and above need to be administer ed via IV piggyback. For Dose >=24mg ECG monitoring is advisable.
[facility] heparin (porcine) injection 5,000 Units 2022-02 03:00: 00 Yes 5000U 5,000 Units, Subcutaneo us, Q8H, First dose on Fri11/19/22 at 2200, Until Discontinu ed, Routine [facility] Lidocaine (LIDOCARE) 4 % patch 1 Patch 2022-02 02:30: 00 11-20 14:44 :00 No 1{patch } 1 Patch, Topical, Administer over 12 Hours, ONCE, 1 dose, On Fri11/19/22 at 2130, Routine [facility] sucralfate (CARAFATE) tablet 1 g 2022-02 02:00: 00 Yes 1g 1 g, Oral, AC+HS, First dose on Fri11/19/22 at 2100, Until Discontinu ed, Routine [facility] acetaminoph en (TYLENOL) tablet 650 mg 2022-02 01:22: 59 Yes 650mg 650 mg, Oral, Q6HPRN, Starting on Fri11/19/22 at 2021, Until Discontinu ed, Routine, Pain (scale 1-3) [facility] sucralfate 1 gram tablet 2022-02 0- 00:00: 00 12-05 04:59 :00 No [id number] 1g Take 1 tablet by mouth before meals and at bedtime for 14 days. [facility] Ondansetron (ZOFRAN) 4 MG oral TABLET DISPERSIBLE 2022-02 0-03 00:00: 00 09-30 00:00 :00 No [id number] 4mg [id number] 3D Take 1 tablet (4 mg total) by mouth every 8 hours as needed for nausea. Joseline trejo Pantoprazol e Sodium 40 MG oral Tablet Delayed Response 10-16 00:00: 00 Yes [id number] 40mg TAKE 1 TABLET BY MOUTH EVERY DAY Joseline trejo Metronidazo le 500 MG oral Tablet 10-15 00:00: 00 Yes [id number] 500mg Take 1 tablet (500 mg total) by mouth 2 times daily. Joseline trejo Valacyclovi r HCl (Valtrex) 500 MG oral Tablet 10-15 00:00: 00 Yes [id number] 500mg Take 1 tablet (500 mg total) by mouth 2 times daily. Joseline trejo sulfamethox azole-trime thoprim 800-160 mg per tablet 09-28 00:00: 00 10-06 04:59 :00 No [id number] 1{tbl} Take 1 tablet by mouth every 12 (twelve) hours for 7 days. [facility] ketorolac (TORADOL) injection 15 mg 09-25 14:45: 00 09-25 13:56 :00 No 15mg 15 mg, Slow IV Push, ONCE, 1 dose, On Fri09/25/22 at 0945, POLA [facility] ondansetron (ZOFRAN (PF)) injection 4 mg 09-25 12:45: 00 09-25 12:43 :00 No 4mg 4 mg, Slow IV Push, ONCE, 1 dose, On Fri09/25/22 at 0745, POLA [facility] maalox:diph enhydrAMINE :lidocaine 2 % viscous 1:1:1 (FIRST-MOUT HWASH BLM) oral suspension 15 mL 09-25 12:45: 00 09-25 12:42 :00 No 15mL 15 mL, Oral, ONCE, 1 dose, On Fri09/25/22 at 0745, Routine [facility] proMETHazin e 25 mg tablet 09-25 00:00: 00 11-20 00:00 :00 No [id number] 25mg Take 1 tablet by mouth every 6 (six) hours as needed for Nausea and Vomiting (N/V). [facility] pantoprazol e 40 mg EC tablet 09-06 00:00: 00 Yes 40mg Take 1 tablet by mouth. [facility] Hydrocortis one Acetate (Hemmorex-H C) 25 MG rectal Suppository 09-06 00:00: 00 05-21 00:00 :00 No [id number] 25mg Apply 1 suppositor y (25 mg total) rectally 2 times daily Joseline trejo NIFEdipine 0.2 % in Lidocaine 5 % 60 g compounded rectal ointment 09-06 00:00: 00 05-21 00:00 :00 No [id number] Apply 1 applicatio n. rectally 2 times daily (Apply pea-sized amount to fingertip and then apply just inside anus) Joseline trejo Mupirocin (BACTROBAN) 2 % apply externally Ointment 08-04 00:00: 00 09-30 00:00 :00 No [id number] 3D Apply 1 applicatio n. topically 3 times daily Joseline trejo mupirocin 2 % ointment 08-03 00:00: 00 Yes [id number] Apply to area(s) 3 (three) times daily. [facility] cephALEXin (KEFLEX) 500 mg capsule 08-03 00:00: 00 08-11 04:59 :00 No [id number] 500mg Take 1 capsule by mouth 4 (four) times daily for 7 days. [facility] doxycycline hyclate 100 mg capsule 08-03 00:00: 00 08-11 04:59 :00 No [id number] 100mg Take 1 capsule by mouth in the morning and 1 capsule in the evening. Do all this for 7 days. [facility] traZODone 150 mg tablet 06-28 00:00: 00 Yes 150mg Take 1 tablet by mouth. [facility] meclizine (TRAVEL-EAS E (MECLIZINE) ) tablet 25 mg 02-28 21:15: 00 02-28 21:26 :00 No 25mg 25 mg, Oral, ONCE, 1 dose, On Fri02/28/22 at 1515, POLA [facility] meclizine 25 mg tablet 02-28 00:00: 00 09-28 00:00 :00 No 25mg Take 1 tablet by mouth. [facility] predniSONE 20 MG oral tablet 02-22 00:00: 00 Yes [id number] 20mg Take 1 tablet (20 mg total) by mouth daily Joseline trejo Ondansetron HCl 4 MG oral Tablet 02-22 00:00: 00 11-19 00:00 :00 No [id number] 4mg [id number] 3D Take 1 tablet (4 mg total) by mouth every 8 hours as needed for nausea Joseline trejo Amoxicillin 500 MG oral Capsule 02-19 00:00: 00 Yes [id number] TAKE 1 CAPSULE BY MOUTH TWICE A DAY IN THE MORNING AND EVENING FOR 10 DAYS Joseline trejo meclizine (TRAVEL-EAS E (MECLIZINE) ) tablet 25 mg 2021-02 18:00: 00 02-13 18:02 :00 No 25mg 25 mg, Oral, ONCE, 1 dose, On Fri02/13/22 at 1200, POLA [facility] amoxicillin 500 mg capsule 2021-02 00:00: 00 02-24 05:59 :00 No [id number] 500mg Take 1 capsule by mouth in the morning and 1 capsule in the evening. Do all this for 10 days. [facility] meclizine 25 mg tablet 2021-02 00:00: 00 02-19 05:59 :00 No [id number] 25mg Take 1 tablet by mouth 3 (three) times daily as needed for Dizziness for up to 5 days. [facility] Trazodone HCl 150 MG oral Tablet 08-02 00:00: 00 Yes 150mg Take 1 tablet (150 mg total) by mouth nightly Joseline Bean - Externa l magnesium sulfate in water 2 gram/50 mL (4 %) infusion 2 g 04-18 20:15: 00 04-18 20:18 :00 No 2g 2 g, IV Piggyback, ONCE, 1 dose, On Fri04/18/21 at 1415, Routine [facility] iopamidol (ISOVUE 370-500 mL) injection 120 mL 04-18 19:15: 00 04-18 17:55 :00 No [id number] 120mL 120 mL, Intravenou s, ONCE, 1 dose, On Fri04/18/21 at 1315, Routine [facility] Trazodone HCl 150 MG oral Tablet 03-15 14:59: 18 Yes 150mg Take 150 mg by mouth nightly Joseline Bean Immunizations Ordered Immunization Name Filled Immunization Name Date Status Comments Source Human Rabies Vaccine-PCEC Unknown Completed Joseline Bean - External Human Rabies Vaccine-PCEC Unknown Completed Joseline Chapman Td- Tetanus & Diphtheria Vaccine (age 7+ years) Unknown Completed Joseline sanches - External Human Rabies Vaccine From Chicken Fibroblast Culture (RABAVERT) Unknown Completed [facility] TD Pres-Free Unknown Completed [facility] Human Rabies Vaccine From Chicken Fibroblast Culture (RABAVERT) Unknown Completed [facility] TD Pres-Free Unknown Completed [facility] SARS-COV-2 COVID-19 VACCINE - (MODERNA) Unknown Completed [facility] Human Rabies Vaccine From Chicken Fibroblast Culture (RABAVERT) Unknown Completed [facility] Human Rabies Vaccine From Chicken Fibroblast Culture (RABAVERT) Unknown Completed [facility] TD Pres-Free Unknown Completed [facility] SARS-COV-2 COVID-19 VACCINE - (MODERNA) Unknown Completed [facility] Human Rabies Vaccine From Chicken Fibroblast Culture (RABAVERT) Unknown Completed [facility] Human Rabies Vaccine From Chicken Fibroblast Culture (RABAVERT) Unknown Completed [facility] TD Pres-Free Unknown Completed [facility] SARS-COV-2 COVID-19 VACCINE - (MODERNA) Unknown Completed [facility] Human Rabies Vaccine From Chicken Fibroblast Culture (RABAVERT) Unknown Completed [facility] Human Rabies Vaccine From Chicken Fibroblast Culture (RABAVERT) Unknown Completed [facility] TD Pres-Free Unknown Completed [facility] SARS-COV-2 COVID-19 VACCINE - (MODERNA) Unknown Completed [facility] Human Rabies Vaccine From Chicken Fibroblast Culture (RABAVERT) Unknown Completed [facility] Human Rabies Vaccine From Chicken Fibroblast Culture (RABAVERT) Unknown Completed [facility] TD Pres-Free Unknown Completed [facility] SARS-COV-2 COVID-19 VACCINE - (MODERNA) Unknown Completed [facility] Human Rabies Vaccine From Chicken Fibroblast Culture (RABAVERT) Unknown Completed [facility] Vital Signs Vital Name Observation Time Observation Value Comments S ource Systolic blood pressure 2023-10-01 20:58:00 144 mm[Hg] [facility] Diastolic blood pressure 2023-10-01 20:58:00 89 mm[Hg] [facility] Heart rate 2023-10-01 20:58:00 84 /min [facility] Body temperature 2023-10-01 20:58:00 36.72 Shivani [facility] Respiratory rate 2023-10-01 20:58:00 14 /min [facility] Body height 2023-10-01 20:58:00 182.9 cm [facility] Body weight 2023-10-01 20:58:00 122.471 kg [facility] BMI 2023-10-01 20:58:00 36.62 kg/m2 [facility] Oxygen saturation in Arterial blood by Pulse oximetry 2023-10-01 20:58:00 99 /min [facility] Systolic blood pressure 2023-10-01 18:36:00 120 mm[Hg] Joseline Seybo ld - External Diastolic blood pressure 2023-10-01 18:36:00 76 mm[Hg] Joseline Seybo ld - External Heart rate 2023-10-01 18:36:00 87 /min Kelse y Seybold - External Body temperature 2023-10-01 18:36:00 36.22 Shivani Joseline Seybold - External Respiratory rate 2023-10-01 18:36:00 15 /min Joseline Seybold - External Body height 2023-10-01 18:36:00 182.9 cm Melly ey Seybold - External Body weight 2023-10-01 18:36:00 123.378 kg Melly ey Seybold - External BMI 2023-10-01 18:36:00 36.89 kg/m2 Melly ey Seybold - External Systolic blood pressure 2023-08-12 16:37:00 125 mm[Hg] [facility] Diastolic blood pressure 2023-08-12 16:37:00 92 mm[Hg] [facility] Heart rate 2023-08-12 16:37:00 93 /min [facility] Body temperature 2023-08-12 16:37:00 37 Shivani [facility] Respiratory rate 2023-08-12 16:37:00 18 /min [facility] Body height 2023-08-12 16:37:00 182.9 cm [facility] Body weight 2023-08-12 16:37:00 122.471 kg [facility] BMI 2023-08-12 16:37:00 36.62 kg/m2 [facility] Oxygen saturation in Arterial blood by Pulse oximetry 2023-08-12 16:37:00 96 /min [facility] Systolic blood pressure 2023-07-12 16:23:00 109 mm[Hg] [facility] Diastolic blood pressure 2023-07-12 16:23:00 74 mm[Hg] [facility] Heart rate 2023-07-12 16:23:00 61 /min [facility] Body temperature 2023-07-12 16:23:00 36.78 Shivani [facility] Respiratory rate 2023-07-12 16:23:00 12 /min [facility] Body weight 2023-07-12 16:23:00 122.925 kg [facility] BMI 2023-07-12 16:23:00 36.75 kg/m2 [facility] Oxygen saturation in Arterial blood by Pulse oximetry 2023-07-12 16:23:00 97 /min [facility] Systolic blood pressure 2023-07-05 17:17:00 135 mm[Hg] [facility] Diastolic blood pressure 2023-07-05 17:17:00 82 mm[Hg] [facility] Heart rate 2023-07-05 17:17:00 80 /min Unive [facility] Body temperature 2023-07-05 17:17:00 36.56 Shivani [facility] Respiratory rate 2023-07-05 17:17:00 18 /min [facility] Oxygen saturation in Arterial blood by Pulse oximetry 2023-07-05 17:17:00 100 /min [facility] Systolic blood pressure 2023-07-01 23:15:00 130 mm[Hg] [facility] Diastolic blood pressure 2023-07-01 23:15:00 87 mm[Hg] [facility] Heart rate 2023-07-01 23:15:00 83 /min Unive [facility] Body temperature 2023-07-01 23:15:00 37.33 Shivani [facility] Respiratory rate 2023-07-01 23:15:00 14 /min [facility] Body height 2023-07-01 23:15:00 182.9 cm [facility] Body weight 2023-07-01 23:15:00 123.832 kg [facility] BMI 2023-07-01 23:15:00 37.03 kg/m2 [facility] Oxygen saturation in Arterial blood by Pulse oximetry 2023-07-01 23:15:00 97 /min [facility] Systolic blood pressure 2023-06-29 00:34:00 124 mm[Hg] [facility] Diastolic blood pressure 2023-06-29 00:34:00 85 mm[Hg] [facility] Heart rate 2023-06-29 00:34:00 74 /min [facility] Body temperature 2023-06-29 00:34:00 37.06 Shivani [facility] Oxygen saturation in Arterial blood by Pulse oximetry 2023-06-29 00:34:00 96 /min [facility] Respiratory rate 2023-06-28 23:48:00 14 /min [facility] Body weight 2023-06-28 22:32:00 123.968 kg [facility] BMI 2023-06-28 22:32:00 37.07 kg/m2 [facility] Body height 2023-06-28 21:46:00 182.9 cm [facility] Systolic blood pressure 2023-05-31 22:04:00 145 mm[Hg] [facility] Diastolic blood pressure 2023-05-31 22:04:00 85 mm[Hg] [facility] Heart rate 2023-05-31 22:04:00 84 /min [facility] Body temperature 2023-05-31 22:04:00 36.61 Shivani [facility] Respiratory rate 2023-05-31 22:04:00 16 /min [facility] Body height 2023-05-31 22:04:00 182.9 cm [facility] Body weight 2023-05-31 22:04:00 123.832 kg [facility] BMI 2023-05-31 22:04:00 37.03 kg/m2 [facility] Oxygen saturation in Arterial blood by Pulse oximetry 2023-05-31 22:04:00 99 /min [facility] Systolic blood pressure 2023-05-23 14:15:00 126 mm[Hg] Joseline Kohlio ld - External Diastolic blood pressure 2023-05-23 14:15:00 80 mm[Hg] Joseline Kohlio ld - External Heart rate 2023-05-23 14:15:00 91 /min Chelsie y Seybold - External Body temperature 2023-05-23 14:15:00 36.61 Shivani Joseline Millsybold - External Respiratory rate 2023-05-23 14:15:00 16 /min Joseline Kohliold - External Body height 2023-05-23 14:15:00 182.9 cm Melly quinonez Seybold - External Body weight 2023-05-23 14:15:00 123.832 kg Melly quinonez Seybold - External BMI 2023-05-23 14:15:00 37.03 kg/m2 Melly quinonez Seybold - External Systolic blood pressure 2023-03-18 18:37:00 116 mm[Hg] [facility] Diastolic blood pressure 2023-03-18 18:37:00 80 mm[Hg] [facility] Heart rate 2023-03-18 18:37:00 87 /min [facility] Body temperature 2023-03-18 18:37:00 36.83 Shivani [facility] Respiratory rate 2023-03-18 18:37:00 18 /min [facility] Body weight 2023-03-18 18:37:00 120.203 kg [facility] BMI 2023-03-18 18:37:00 35.94 kg/m2 [facility] Oxygen saturation in Arterial blood by Pulse oximetry 2023-03-18 18:37:00 99 /min [facility] Systolic blood pressure 2023-03-01 01:45:00 141 mm[Hg] [facility] Diastolic blood pressure 2023-03-01 01:45:00 86 mm[Hg] [facility] Heart rate 2023-03-01 01:45:00 92 /min [facility] Body temperature 2023-03-01 01:45:00 37.28 Shivani [facility] Respiratory rate 2023-03-01 01:45:00 16 /min [facility] Body height 2023-03-01 01:45:00 182.9 cm [facility] Body weight 2023-03-01 01:45:00 120.203 kg [facility] BMI 2023-03-01 01:45:00 35.94 kg/m2 [facility] Oxygen saturation in Arterial blood by Pulse oximetry 2023-03-01 01:45:00 100 /min [facility] Systolic blood pressure 2023-01-25 10:30:00 127 mm[Hg] [facility] Diastolic blood pressure 2023-01-25 10:30:00 84 mm[Hg] [facility] Heart rate 2023-01-25 10:30:00 77 /min [facility] Body temperature 2023-01-25 10:30:00 36.67 Shivani [facility] Respiratory rate 2023-01-25 10:30:00 18 /min [facility] Body height 2023-01-25 10:30:00 182.9 cm [facility] Body weight 2023-01-25 10:30:00 120.203 kg [facility] BMI 2023-01-25 10:30:00 35.94 kg/m2 [facility] Oxygen saturation in Arterial blood by Pulse oximetry 2023-01-25 10:30:00 99 /min [facility] Systolic blood pressure 2023-01-11 06:54:00 120 mm[Hg] [facility] Diastolic blood pressure 2023-01-11 06:54:00 69 mm[Hg] [facility] Heart rate 2023-01-11 06:54:00 61 /min [facility] Body temperature 2023-01-11 06:54:00 36.33 Shivani [facility] Oxygen saturation in Arterial blood by Pulse oximetry 2023-01-11 06:54:00 98 /min [facility] Respiratory rate 2023-01-11 03:19:00 18 /min [facility] Body height 2023-01-11 03:19:00 182.9 cm [facility] Body weight 2023-01-11 03:19:00 122.471 kg [facility] BMI 2023-01-11 03:19:00 36.62 kg/m2 [facility] Systolic blood pressure 2022-12-02 13:34:00 126 mm[Hg] [facility] Diastolic blood pressure 2022-12-02 13:34:00 90 mm[Hg] [facility] Heart rate 2022-12-02 13:34:00 77 /min [facility] Body temperature 2022-12-02 13:34:00 37 Shivani [facility] Respiratory rate 2022-12-02 13:34:00 18 /min [facility] Body height 2022-12-02 13:34:00 182.9 cm [facility] Body weight 2022-12-02 13:34:00 120.203 kg [facility] BMI 2022-12-02 13:34:00 35.94 kg/m2 [facility] Oxygen saturation in Arterial blood by Pulse oximetry 2022-12-02 13:34:00 100 /min [facility] Body height 2022-11-20 20:00:00 182.9 cm [facility] Systolic blood pressure 2022-11-20 16:50:00 124 mm[Hg] [facility] Diastolic blood pressure 2022-11-20 16:50:00 83 mm[Hg] [facility] Heart rate 2022-11-20 16:50:00 61 /min [facility] Body temperature 2022-11-20 16:50:00 36.61 Shivani [facility] Respiratory rate 2022-11-20 16:50:00 20 /min [facility] Oxygen saturation in Arterial blood by Pulse oximetry 2022-11-20 16:50:00 98 /min [facility] Body weight 2022-11-20 01:00:00 122 kg [facility] BMI 2022-11-20 01:00:00 36.48 kg/m2 [facility] Systolic blood pressure 2022-09-28 14:31:00 136 mm[Hg] [facility] Diastolic blood pressure 2022-09-28 14:31:00 97 mm[Hg] [facility] Heart rate 2022-09-28 14:31:00 76 /min [facility] Body temperature 2022-09-28 14:31:00 36.67 Shivani [facility] Respiratory rate 2022-09-28 14:31:00 18 /min [facility] Body height 2022-09-28 14:31:00 182.9 cm [facility] Body weight 2022-09-28 14:31:00 122.018 kg [facility] BMI 2022-09-28 14:31:00 36.48 kg/m2 [facility] Oxygen saturation in Arterial blood by Pulse oximetry 2022-09-28 14:31:00 98 /min [facility] Systolic blood pressure 2022-09-25 14:52:21 125 mm[Hg] [facility] Diastolic blood pressure 2022-09-25 14:52:21 88 mm[Hg] [facility] Heart rate 2022-09-25 14:52:21 72 /min [facility] Body temperature 2022-09-25 14:52:21 36.83 Shivani [facility] Respiratory rate 2022-09-25 14:52:21 16 /min [facility] Oxygen saturation in Arterial blood by Pulse oximetry 2022-09-25 14:52:21 96 /min [facility] Body height 2022-09-25 12:10:00 182.9 cm [facility] Body weight 2022-09-25 12:10:00 122.018 kg [facility] BMI 2022-09-25 12:10:00 36.48 kg/m2 [facility] Systolic blood pressure 2022-09-06 18:47:00 124 mm[Hg] Joseline Knowles ld - External Diastolic blood pressure 2022-09-06 18:47:00 64 mm[Hg] Joseline Seybo ld - External Heart rate 2022-09-06 18:47:00 78 /min Sbse y Seybold - External Body temperature 2022-09-06 18:47:00 36.11 Shivani Joseline Seybold - External Respiratory rate 2022-09-06 18:47:00 16 /min Joseline Millsybold - External Body height 2022-09-06 18:47:00 182.9 cm Melly ey Seybold - External Body weight 2022-09-06 18:47:00 122.653 kg Melly ey Seybold - External BMI 2022-09-06 18:47:00 36.67 kg/m2 Melly ey Seybold - External Oxygen saturation in Arterial blood by Pulse oximetry 2022-09-06 18:47:00 97 /min Joseline Millsybo ld - External Heart rate 2022-08-04 01:30:00 89 /min [facility] Body temperature 2022-08-04 01:30:00 37.11 Shivani [facility] Respiratory rate 2022-08-04 01:30:00 18 /min [facility] Body height 2022-08-04 01:30:00 175.3 cm [facility] Body weight 2022-08-04 01:30:00 106.595 kg [facility] BMI 2022-08-04 01:30:00 34.70 kg/m2 [facility] Oxygen saturation in Arterial blood by Pulse oximetry 2022-08-04 01:30:00 100 /min [facility] Systolic blood pressure 2022-08-04 01:30:00 146 mm[Hg] [facility] Diastolic blood pressure 2022-08-04 01:30:00 105 mm[Hg] [facility] Systolic blood pressure 2022-07-12 18:18:00 118 mm[Hg] Joseline ybo ld - External Diastolic blood pressure 2022-07-12 18:18:00 78 mm[Hg] Joseline Millsybo ld - External Heart rate 2022-07-12 18:18:00 76 /min Sbse y Seybold - External Body temperature 2022-07-12 [...] Pulse oximetry 2022-07-12 18:18:00 97 /min Joseline Millsybo ld - External Systolic blood pressure 2022-03-04 21:25:00 110 mm[Hg] Joseline Seybo ld - External Diastolic blood pressure 2022-03-04 21:25:00 84 mm[Hg] Joseline Seybo ld - External Heart rate 2022-03-04 21:25:00 102 /min Kel y Seybold - External Body temperature 2022-03-04 21:25:00 36.89 Shivani Joseline Seybold - External Respiratory rate 2022-03-04 21:25:00 16 /min Joseline Seybold - External Body height 2022-03-04 21:25:00 182.9 cm Melly ey Seybold - External Body weight 2022-03-04 21:25:00 106.595 kg Melly ey Seybold - External BMI 2022-03-04 21:25:00 31.87 kg/m2 Melly ey Seybold - External Systolic blood pressure 2022-02-28 20:48:00 139 mm[Hg] [facility] Diastolic blood pressure 2022-02-28 20:48:00 92 mm[Hg] [facility] Heart rate 2022-02-28 20:48:00 78 /min [facility] Body temperature 2022-02-28 20:48:00 36.89 Shivani [facility] Respiratory rate 2022-02-28 20:48:00 22 /min [facility] Body height 2022-02-28 20:48:00 182.9 cm [facility] Body weight 2022-02-28 20:48:00 106.595 kg [facility] BMI 2022-02-28 20:48:00 31.87 kg/m2 [facility] Oxygen saturation in Arterial blood by Pulse oximetry 2022-02-28 20:48:00 99 /min [facility] Systolic blood pressure 2022-02-13 17:19:00 146 mm[Hg] [facility] Diastolic blood pressure 2022-02-13 17:19:00 85 mm[Hg] [facility] Heart rate 2022-02-13 17:19:00 90 /min [facility] Body temperature 2022-02-13 17:19:00 36.61 Shivani [facility] Respiratory rate 2022-02-13 17:19:00 16 /min [facility] Body height 2022-02-13 17:19:00 182.9 cm [facility] Body weight 2022-02-13 17:19:00 106.595 kg [facility] BMI 2022-02-13 17:19:00 31.87 kg/m2 [facility] Oxygen saturation in Arterial blood by Pulse oximetry 2022-02-13 17:19:00 100 /min [facility] Systolic blood pressure 2021-04-18 20:00:00 119 mm[Hg] [facility] Diastolic blood pressure 2021-04-18 20:00:00 72 mm[Hg] [facility] Heart rate 2021-04-18 20:00:00 72 /min [facility] Respiratory rate 2021-04-18 20:00:00 21 /min [facility] Oxygen saturation in Arterial blood by Pulse oximetry 2021-04-18 20:00:00 97 /min [facility] Body temperature 2021-04-18 16:29:00 36.44 Shivani [facility] Body height 2021-04-18 16:29:00 182.9 cm [facility] Body weight 2021-04-18 16:29:00 107.956 kg [facility] BMI 2021-04-18 16:29:00 32.28 kg/m2 [facility] Body height 2021-03-15 21:05:00 182.9 cm Melly Bean Body weight 2021-03-15 21:05:00 104.327 kg Melly cristiano Bean BMI 2021-03-15 21:05:00 31.19 kg/m2 Melly ey ybcami Systolic blood pressure 2021-03-15 20:55:00 118 mm[Hg] Joseline Seybo ld Diastolic blood pressure 2021-03-15 20:55:00 78 mm[Hg] Joseline Millsybo ld Heart rate 2021-03-15 20:55:00 108 /min Chelsie y [place] Body temperature 2021-03-15 20:55:00 36.72 Shivani Joseline Bean Oxygen saturation in Arterial blood by Pulse oximetry 2021-03-15 20:55:00 98 /min Joseline Kohlio mahendra Procedures Procedure Date / Time Performed Performing Clinician Source RABIES VACCINE, IM 2023-07-12 16:29:39 Doctor Un assigned, [place] [facility] RABIES VACCINE, IM 2023-07-01 23:31:31 [facility] KNEE 3 VW RIGHT 2023-05-31 22:39:24 Aimee Dickey [facility] ASSIGNMENT OF BENEFITS 2023-03-18 19:32:42 Docto r Unassigned, [place] [facility] CONSENT/REFUSAL FOR DIAGNOSIS AND TREATMENT 2023-03-18 18:28:03 Doctor Unassigned, [place] [facility] RAPID STREP SCREEN FOR GROUP A 2023-03-01 01:55:00 Linda Sanford [facility] RAPID INFLUENZA A/B 2023-03-01 01:55:00 Linda Sanford [facility] COVID-19 (ID NOW RAPID TESTING) 2023-03-01 01:55:00 Linda Sanford [facility] CONSENT/REFUSAL FOR DIAGNOSIS AND TREATMENT 2023-03-01 01:37:40 Doctor Unassigned, [place] [facility] RAPID STREP SCREEN FOR GROUP A 2023-01-25 10:33:00 Shae Gillespie [facility] CONSENT/REFUSAL FOR DIAGNOSIS AND TREATMENT 2023-01-25 10:18:08 Doctor Unassigned, [place] [facility] US TESTICULAR TORSION 2023-01-11 06:06:00 Joey Shultz [facility] URINALYSIS 2023-01-11 04:00:00 Ivonne Shultz [facility] CONSENT/REFUSAL FOR DIAGNOSIS AND TREATMENT 2023-01-11 03:07:43 Doctor Unassigned, [place] [facility] INSURANCE CORRESPONDENCE 2022-12-10 05:01:00 Doc tor Unassigned, [place] [facility] REFERRAL- REQUEST/RESPONSE 2022-12-09 05:01:00 Doctor Unassigned, [place] [facility] CONSENT/REFUSAL FOR DIAGNOSIS AND TREATMENT 2022-12-02 13:22:20 Doctor Unassigned, [place] [facility] TRANSTHORACIC ECHO (TTE) COMPLETE W/ CONTRAST 2022-11-20 16:09:18 Tobias Melendezhammad [facility] TROPONIN I 2022-11-20 13:52:00 Al [facility] C-REACTIVE PROTEIN 2022-11-20 07:13:00 Al [facility] TROPONIN I 2022-11-20 07:13:00 Al [facility] LIPID PANEL (83756)(TOTAL CHOLESTEROL, TRIGLYCERIDES, HDL) 2022-11-20 07:13:00 Al Tate [facility] FERRITIN SERUM 2022-11-20 02:14:00 [facility] TROPONIN I 2022-11-20 02:14:00 Al [facility] FREE T4 2022-11-20 02:14:00 Al [facility] THYROID STIMULATING HORMONE 2022-11-20 02:14:00 Al [facility] HEPATIC FUNCTION PANEL (06977) (ALB,T.PRO,BILI T,BU/BC,ALT,AST,ALK PHOS) 2022-11-20 02:14:00 Tobias Melendezhammad [facility] BASIC METABOLIC PANEL (NA, K, CL, CO2, GLUCOSE, BUN, CREATININE, CA) 2022-11-20 02:14:00 Tobias Melendezhammad Joseph [facility] IRON PANEL 2022-11-20 02:14:00 [facility] 2022-11-20 02:14:00 Al Tate [facility] CBC WITH DIFF 2022-11-20 02:14:00 Al [facility] GLYCOSYLATED HEMOGLOBIN (A1C) 2022-11-20 02:14:00 Al Tate [facility] N-TERMINAL PRO-BNP 2022-11-20 02:14:00 Al Tate [facility] XR CHEST 1 VW 2022-11-20 02:08:59 Al [facility] EXTRA TUBE LT. GREEN 2022-11-20 02:05:00 Wilfredo Braswell [facility] INSURANCE CORRESPONDENCE 2022-11-02 05:01:00 Doc tor Unassigned, [place] [facility] US TESTICULAR TORSION 2022-09-28 15:35:02 Joey Shultz [facility] URINALYSIS 2022-09-28 14:52:00 Ivonne Shultz [facility] CONSENT/REFUSAL FOR DIAGNOSIS AND TREATMENT 2022-09-28 14:27:23 Doctor Unassigned, [place] [facility] LIPASE 2022-09-25 12:43:00 Maral Gamble [facility] COMP. METABOLIC PANEL (68479) 2022-09-25 12:43:00 Maral Gamble [facility] CBC WITH DIFF 2022-09-25 12:43:00 Mar[facility] Gamble [facility] CONSENT/REFUSAL FOR DIAGNOSIS AND TREATMENT 2022-09-25 12:03:13 Doctor Unassigned, [place] [facility] URINALYSIS 2022-08-04 01:52:00 Kain Rajput [facility] NOTICE OF PRIVACY PRACTICES 2022-08-04 01:24:37 Doctor Unassigned, [place] [facility] CONSENT/REFUSAL FOR DIAGNOSIS AND TREATMENT 2022-08-04 01:24:12 Doctor Unassigned, [place] [facility] CONSENT/REFUSAL FOR DIAGNOSIS AND TREATMENT 2022-02-28 20:35:39 Doctor Unassigned, [place] [facility] RAPID STREP SCREEN FOR GROUP A 2022-02-13 18:03:00 Hardy Zavala [facility] RAPID INFLUENZA A/B 2022-02-13 18:03:00 Dinesh Zavala [facility] COVID-19 (ID NOW RAPID TESTING) 2022-02-13 18:03:00 Hardy Zavala [facility] CONSENT/REFUSAL FOR DIAGNOSIS AND TREATMENT 2022-02-13 17:16:02 Doctor Unassigned, [place] [facility] CT ABDOMEN PELVIS W CONTRAST 2021-04-18 18:02:33 Kayla Livingston [facility] LIPASE 2021-04-18 17:19:00 Kayla Livingston [facility] MAGNESIUM 2021-04-18 17:19:00 Kayla Livingston [facility] COMP. METABOLIC PANEL (50933) 2021-04-18 17:19:00 Kayla Livingston [facility] CBC WITH DIFF 2021-04-18 17:19:00 Kayla Livingston [facility] URINALYSIS 2021-04-18 17:19:00 Kayla Livingston [facility] NOTICE OF PRIVACY PRACTICES 2021-04-18 16:02:42 Doctor Unassigned, [place] [facility] Encounters Start Date/Time End Date/Time Encounter Type Admission Type Attending [facility] Care Facility Care Department Encounter ID Source 2024-01-19 00:00:00 2024-01-19 00:00:00 Outpatient PIPPA REYNOSO [id number] [facility] 00:00:00 2023-12-19 00:00:00 Outpatient OJSELINE GOLDBERG [id number] Joseline cami 2023-12-10 09:00:00 2023-12-10 09:00:00 Outpatient MELIZA BENNETT JOSELINE GOLDBERG [id number] Joseline [facility] 2023-11-30 00:00:00 2023-11-30 00:00:00 Outpatient PIPPA REYNOSO [id number] Joseline [facility] 2023-10-24 00:00:00 2023-10-24 00:00:00 Outpatient JOSELINE GOLDBERG [id number] Joseline [facility] 2023-10-23 13:50:00 2023-10-23 13:50:00 Outpatient ESTEFANY JOSELINE GOLDBERG [id number] Joseline [facility] 2023-10-23 00:00:00 2023-10-23 00:00:00 Outpatient PIPPA REYNOSO [id number] Joseline [facility] 2023-10-17 00:00:00 2023-10-17 00:00:00 Outpatient MD JOSELINE MATHIAS [id number] [facility] 2023-10-17 00:00:00 2023-10-17 00:00:00 Outpatient MD JOSELINE MATHIAS [id number] [facility] 2023-10-15 00:00:00 2023-10-15 00:00:00 Outpatient JOHN YIN [id number] [facility] 2023-10-06 00:00:00 2023-10-06 00:00:00 Outpatient JOSELINE GOLDBERG [id number] Joseline [facility] 2023-10-03 00:00:00 2023-10-03 00:00:00 Outpatient JOSELINE GOLDBERG [id number] [facility] 2023-10-02 00:00:00 2023-10-02 00:00:00 Outpatient PIPPA REYNOSO [id number] [facility] 2023-10-01 15:59:00 2023-10-01 17:11:00 Emergency JULIANA BARRY TIMOTHY [facility] E[facility] [id number] [facility] 2023-10-01 15:59:00 2023-10-01 17:11:00 Emergency Juliana Baird [facility] [id number] [id number] [id number] [facility] 2023-10-01 14:45:00 2023-10-01 14:45:00 Outpatient CLIFFChris JOSELINE GOLDBERG [id number] Joseline [facility] 2023-10-01 14:00:00 2023-10-01 14:00:00 Outpatient PIPPA REYNOSO [id number] [facility] 2023-10-01 00:00:00 2023-10-01 00:00:00 Outpatient RADHA HERNANDES [id number] [facility] 2023-10-01 00:00:00 2023-10-01 00:00:00 Outpatient JOSELINE GOLDBERG [id number] [facility] 2023-09-02 00:00:00 2023-09-02 00:00:00 Outpatient SAVANAHDarling PIPPA JOSELINE GOLDBERG [id number] [facility] 2023-08-12 11:39:00 2023-08-12 12:41:00 Emergency X WILLIAN PEREZ JULIO [facility] ERT [id number] [facility] 2023-08-12 11:39:00 2023-08-12 12:41:00 Emergency Willian Perez [facility] [id number] 350.1.13.10 [id number] [id number] [facility] 2023-07-12 11:15:00 2023-07-12 11:40:51 Outpatient LEEANN MCCORMICK [facility] [id number] [facility] 2023-07-12 11:15:00 2023-07-12 11:35:00 Nurse Visit Nurse, Venkata [facility] 1..840.114 350.1.13.10 4.2.7.2.686 [id number] [facility] 2023-07-05 12:00:00 2023-07-05 12:57:22 Outpatient R LEEANN MCCOY [facility] [id number] [facility] 2023-07-05 12:00:00 2023-07-05 12:20:00 Nurse Visit Nurse, Venkata [facility] Unknown, Attending [facility] 1..840.114 350.1.13.10 4.2.7.2.686 [id number] [facility] 2023-07-01 18:00:00 2023-07-01 18:54:27 Outpatient R NO NUR [facility] [id number] [facility] 2023-07-01 18:00:00 2023-07-01 18:20:00 Urgent Care No Nur Unknown, Attending [facility] 1..840.114 350.1.13.10 4.2.7.2.686 [id number] [facility] 2023-06-28 16:49:00 2023-06-28 20:22:00 Emergency Kayla RAMOS [facility] ERT [id number] [facility] 2023-06-28 16:49:00 2023-06-28 20:22:00 Emergency Darryl Owens K Paige [facility] 1..840.114 350.1.13.10 [id number] [id number] [facility] 2023-06-23 00:00:00 2023-06-23 00:00:00 Outpatient JOSELINE GOLDBERG [id number] [facility] 2023-06-23 00:00:00 2023-06-23 00:00:00 Outpatient JOSELINE GOLDBERG [id number] [facility]eline [facility] 2023-06-16 00:00:00 2023-06-16 00:00:00 Outpatient PIPPA REYNOSO JOSELINE GOLDBERG [id number] [facility] 2023-06-15 00:00:00 2023-06-15 00:00:00 Outpatient PIPPA REYNOSO JOSELINE GOLDBERG [id number] [facility]eline [facility] 2023-06-13 13:45:00 2023-06-13 13:45:00 Outpatient JENY HAIDER JOSELINE GOLDBERG [id number] [facility] 2023-06-05 00:00:00 2023-06-05 00:00:00 Outpatient JENY HAIDER JOSELINE GOLDBERG [id number] [facility]eline [facility] 2023-06-02 00:00:00 2023-06-02 00:00:00 Outpatient PIPPA REYNOSO JOSELINE GOLDBERG [id number] [facility] 2023-06-02 00:00:00 2023-06-02 00:00:00 Outpatient JOSELINE GOLDBERG [id number] [facility] 2023-06-02 00:00:00 2023-06-02 00:00:00 Outpatient PIPPA REYNOSO JOSELINE GOLDBERG [id number] [facility] 2023-05-31 17:06:00 2023-05-31 18:29:00 Emergency X INDIA DICKEY [facility] ERT [id number] [facility] 2023-05-31 17:06:00 2023-05-31 18:29:00 Emergency India Dickey [facility] [id number] 350.1.13.10 4.2.7.2.686 [id number] [facility] 2023-05-28 00:00:00 2023-05-28 00:00:00 Outpatient EDGARDO PIPPA JOSELINE GOLDBERG [id number] [facility] 2023-05-28 00:00:2023-05-28 00:00:00 Outpatient PIPPA REYNOSO JOSELINE GOLDBERG [id number] [facility] 2023-05-28 00:00:00 2023-05-28 00:00:00 Outpatient PIPPA REYNOSO JOSELINE GOLDBERG [id number] [facility] 2023-05-23 09:30:00 2023-05-23 09:30:00 Outpatient PIPPA REYNOSO JOSELINE GOLDBERG [id number] [facility] 2023-05-23 00:00:00 2023-05-23 00:00:00 Outpatient PIPPA REYNOSO JOSELINE GOLDBERG [id number] [facility] 2023-03-25 00:00:00 2023-03-25 00:00:00 Outpatient DIOGO GISELLA JOSELINE GOLDBERG [id number] [facility] 2023-03-25 00:00:00 2023-03-25 00:00:00 Outpatient GISELLA LIND [id number] [facility] 2023-03-25 00:00:00 2023-03-25 00:00:00 Outpatient JOSELINE GOLDBERG [id number] [facility] 2023-03-19 00:00:00 2023-03-19 00:00:00 Outpatient DIOGO GISELLA GOLDBERG [id number] [facility] 2023-03-18 12:37:00 2023-03-18 13:38:00 Emergency X RICHARDSONBANDAR [facility] ERT [id number] [facility] 2023-03-18 12:37:00 2023-03-18 13:38:00 Emergency Richardson Bandar [facility] [id number] 350.1.13.10 [id number] [id number] [facility] 2023-02-28 19:47:00 2023-02-28 21:02:00 Emergency X LINDA SANFORD [facility] ERT [id number] [facility] 2023-02-28 19:47:00 2023-02-28 21:02:00 Emergency Linda Sanford [facility] 1.2.840.114 350.1.13.10 4.2.7.2.686 [id number] [facility] 2023-02-13 00:00:00 2023-02-13 00:00:00 Outpatient [facility]SELINE [facility]DBER[facility] [id number] [facility]23-01-25 04:35:00 2023-01-25 06:05:00 Emergency X SHAE GILLESPIE [facility] ERT [id number] [facility] 2023-01-25 04:35:00 2023-01-25 06:05:00 Emergency Shae Gillespie [facility] 1.2.840.114 350.1.13.10 4.2.7.2.686 [id number] [facility] 2023-01-10 21:21:00 2023-01-11 01:38:00 Emergency X IVONNE SHULTZ [facility] ERT [id number] [facility] 2023-01-10 21:21:00 2023-01-11 01:38:00 Emergency Ivonne Shultz [facility] 1.2.840.114 350.1.13.10 4.2.7.2.686 [id number] [facility] 2022-12-25 09:15:00 2022-12-25 09:15:00 Outpatient KACIE QUIROZ [id number] [facility] 2022-12-10 00:00:00 2022-12-10 00:00:00 Orders Only Doctor Unassigned, [place] [facility] 1.2840.114 350.1.13.10 4.2.7.2.686 [id number] [id number] [facility] 2022-12-09 00:00:00 2022-12-09 00:00:00 Orders Only Doctor Unassigned, [place] [facility] 1.2.840.114 350.1.13.10 4.2.7.2.686 [id number] [facility] 2022-12-04 00:00:00 2022-12-04 00:00:00 Outpatient JOSELINE GOLDBERG [id number] [facility] 2022-12-03 00:00:00 2022-12-03 00:00:00 Outpatient GISELLA LIND JOSELINE GOLDBERG [id number] [facility] 2022-12-02 08:34:00 2022-12-02 10:08:00 Emergency X YARA Kayla [facility] ERT [id number] [facility] 2022-12-02 08:34:00 2022-12-02 10:08:00 Emergency Yara, K [facility] 1..840.114 350.1.13.10 4.2.7.2.686 [id number] [facility] 2022-11-23 00:00:00 2022-11-23 00:00:00 Outpatient PIPPA REYNOSO JOSELINE GOLDBERG [id number] [facility] 2022-11-21 00:00:00 2022-11-21 00:00:00 Outpatient JOSELINE GOLDBERG [id number] [facility] 2022-11-19 19:34:00 2022-11-20 16:45:00 Outpatient X HAYDEN BRASWELL [facility] [id number] [facility] 2022-11-19 19:34:00 2022-11-20 16:45:00 Hospital Encounter Jose Guadalupe [facility]az [facility] ..840.114 350.1.13.10 4.2.7.2.686 [id number] [facility] 2022-11-20 13:00:00 2022-11-20 13:00:00 Outpatient KACIE QUIROZ [id number] [facility] 2022-11-19 11:30:00 2022-11-19 11:30:00 Outpatient CECIL CHATMAN JOSELINE GOLDBERG [id number] [facility] [place] 2022-11-19 00:00:00 2022-11-19 00:00:00 Outpatient PIPPA REYNOSO JOSELINE GOLDBERG [id number] [facility] 2022-11-02 00:00:00 2022-11-02 00:00:00 Outpatient JOSELINE GOLDBERG [id number] [facility] 2022-11-02 00:00:00 2022-11-02 00:00:00 Orders Only Doctor Unassigned, [place] [facility] 1.2.840.114 350.1.13.10 4.2.7.2.686 [id number] [facility] 2022-11-01 00:00:00 2022-11-01 00:00:00 Outpatient JOSELINE GOLDBERG [id number] [facility] [place] 2022-10-22 00:00:00 2022-10-22 00:00:00 Outpatient PIPPA REYNOSO JOSELINE GOLDBERG [id number] [facility] 2022-10-22 00:00:00 2022-10-22 00:00:00 Outpatient JOSELINE GOLDBERG [id number] [facility] [place] 2022-10-18 00:00:00 2022-10-18 00:00:00 Outpatient JOSELINE GOLDBERG [id number] [facility] 2022-10-16 00:00:00 2022-10-16 00:00:00 Outpatient PIPPA REYNOSO JOSELINE OGLDBERG [id number] [facility] 2022-10-15 00:00:00 2022-10-15 00:00:00 Outpatient JOHN YIN JOSELINE GOLDBERG [id number] [facility] 2022-10-15 00:00:00 2022-10-15 00:00:00 Outpatient ANNAMARIAJOHN JOSELINE GOLDBERG [id number] [facility] 2022-10-11 08:00:00 2022-10-11 08:00:00 Outpatient LAB90 JOSELINE GOLDBERG [id number] [facility] 2022-10-11 00:00:00 2022-10-11 00:00:00 Outpatient PIPPA REYNOSO JOSELINE [id number] [facility] 2022-10-08 00:00:00 2022-10-08 00:00:00 Outpatient PIPPA REYNOSO JOSELINE [id number] [facility] 2022-10-07 00:00:00 2022-10-07 00:00:00 Outpatient JOSELINE JOSELINE [id number] [facility] 2022-10-07 00:00:00 2022-10-07 00:00:00 Outpatient JOSELINE JOSELINE [id number] [facility] 2022-10-02 00:00:00 2022-10-02 00:00:00 Outpatient PIPPA REYNOSO JOSELINE GOLDBERG [id number] [facility] 2022-09-28 09:34:00 2022-09-28 11:04:00 Emergency X IVONNE SHULTZ [facility] ERT [id number] [facility] 2022-09-28 09:34:00 2022-09-28 11:04:00 Emergency SukhdevIvonne gomez Magaly [facility] 1.2.840.114 350.1.13.10 4.2.7.2.686 [id number] [facility] 2022-09-28 00:00:00 2022-09-28 00:00:00 Outpatient PIPPA REYNOSO JOSELINE GOLDBERG [id number] [facility] 2022-09-25 07:15:00 2022-09-25 09:59:00 Emergency X VERITOALEMCARLTONMARAL [facility] ERT [id number] [facility] 2022-09-25 07:15:00 2022-09-25 09:59:00 Emergency Maral Gamble [facility] 1.2.840.114 350.1.13.10 4.2.7.2.686 [id number] [facility] 2022-09-11 00:00:00 2022-09-11 00:00:00 Outpatient PIPPA REYNOSO JOSELINE GOLDBERG [id number] [facility] 2022-09-06 14:45:00 2022-09-06 14:45:00 Outpatient LAB90 JOSELINE JOSELINE [id number] [facility] 2022-09-06 14:00:00 2022-09-06 14:00:00 Outpatient PIPPA REYNOSO JOSELINE JOSELINE [id number] [facility] 2022-09-06 00:00:00 2022-09-06 00:00:00 Outpatient JOSELINE JOSELINE [id number] [facility] 2022-08-12 00:00:00 2022-08-12 00:00:00 Outpatient ANNAMARIAJOHN JOSELINE GOLDBERG [id number] [facility] 2022-08-12 00:00:00 2022-08-12 00:00:00 Outpatient JOSELINE GOLDBERG [id number] [facility] 2022-08-03 20:31:00 2022-08-03 21:56:00 Emergency X KAIN RAJPUT [facility] ERT [id number] [facility] 2022-08-03 20:31:00 2022-08-03 21:56:00 Emergency Kain Rajput [facility] 1.2.840.114 350.1.13.10 4.2.7.2.686 [id number] [facility] 2022-07-19 11:30:00 2022-07-19 11:30:00 Outpatient PAYAM YINAND JOSELINE GOLDBERG [id number] [facility] 2022-07-12 14:00:00 2022-07-12 14:00:00 Outpatient GISELLA LIND [id number] [facility] 2022-07-12 14:00:00 2022-07-12 14:00:00 Outpatient GISELLA LIND [id number] [facility] 2022-07-10 00:00:00 2022-07-10 00:00:00 Outpatient [facility]IN [id number] [facility] 2022-06-28 00:00:00 2022-06-28 00:00:00 Outpatient GISELLA LIND JOSELINE [id number] [facility] 2022-06-28 00:00:00 2022-06-28 00:00:00 Outpatient GISELLA LIND JOSELINE [id number] [facility] 2022-03-04 15:30:00 2022-03-04 15:30:00 Outpatient GISELLA LIND JOSELINE [id number] [facility] 2022-02-28 14:49:00 2022-02-28 15:41:00 Emergency X NITHIN [facility] ERT [id number] [facility] 2022-02-28 14:49:00 2022-02-28 15:41:00 Emergency Iggy Weller [facility] 1.2.840.114 350.1.13.10 4.2.7.2.686 [id number] [facility] 2022-02-28 00:00:00 2022-02-28 00:00:00 Outpatient JOHN YIN JOSELINE GOLDBERG [id number] [facility] 2022-02-28 00:00:00 2022-02-28 00:00:00 Outpatient JOSELINE GOLDBERG [id number] [facility] 2022-02-22 15:15:00 2022-02-22 15:15:00 Outpatient JOVANIMIHAI ROTHMAN JOSELINE GOLDBERG [id number] [facility] 2022-02-13 11:20:00 2022-02-13 12:52:00 Emergency X BEHZADI, HARDY [facility] ERT [id number] [facility] 2022-02-13 11:20:00 2022-02-13 12:52:00 Emergency Behzadi, Hardy A [facility] 1.2.840.114 350.1.13.10 4.2.7.2.686 [id number] [facility] 2022-02-13 00:00:00 2022-02-13 00:00:00 Outpatient GISELLA LIND [id number] [facility] 2022-02-13 00:00:00 2022-02-13 00:00:00 Orders Only Doctor Unassigned, [place] [facility] 1.2.840.114 350.1.13.10 4.2.7.2.686 [id number] [facility] 2021-11-05 00:00:00 2021-11-05 00:00:00 Outpatient GISELLA LIND [id number] [facility] 2021-08-31 03:15:00 2021-08-31 03:15:00 Outpatient HANH HUERTAS UTPRASAD [id number] [facility] 2021-06-25 00:00:00 2021-06-25 00:00:00 Outpatient GISELLA LIND [id number] [facility] 2021-06-15 00:00:00 2021-06-15 00:00:00 Outpatient GISELLA LIND [id number] [facility] 2021-04-18 10:30:00 2021-04-18 14:28:00 Emergency X Kayla LIVINGSTON [facility] ERT [id number] [facility] 2021-04-18 10:30:00 2021-04-18 14:28:00 Emergency Kayla Livingston [facility] 1.2.840.114 350.1.13.10 4.2.7.2.686 [id number] [facility] 2021-04-18 00:00:00 2021-04-18 00:00:00 Outpatient GISELLA LIND [id number] [facility] 2021-03-28 00:00:00 2021-03-28 00:00:00 Outpatient GISELLA LIND [id number] [facility] 2021-03-28 00:00:00 2021-03-28 00:00:00 Outpatient JOSELINE GOLDBERG [id number] [facility] 2021-03-28 00:00:00 2021-03-28 00:00:00 Outpatient JOSELINE GOLDBERG [id number] [facility] 2021-03-16 10:20:00 2021-03-16 10:20:00 Outpatient LAB90 JOSELINE GOLDBERG [id number] [facility] 2021-03-16 09:35:00 2021-03-16 09:35:00 Outpatient LAB90 JOSELINE GOLDBERG [id number] [facility] 2021-03-15 15:15:00 2021-03-15 15:45:00 Office Visit Gisella Lind [place] 1.2.840.114 350.1.13.13 1.2.7.2.686 [id number] [facility] 2021-03-15 00:00:00 2021-03-15 00:00:00 Outpatient GISELLA LIND [id number] [facility] 2021-03-15 00:00:00 2021-03-15 00:00:00 Outpatient GISELLA LIND [id number] [facility] Results Test Description Test Time Test Comments Results Resul t Comments Source XR KNEE 3 VW RIGHT 2023-05-19 3 22:42:42 XR KNEE 3 VW RIGHT HISTORY: ?right knee pain COMPARISON: ?none available. Findings:The osseous structures are intact. Tricompartmental mild osteoarthrosis.Small knee joint effusion.Mild soft tissue edema. ?No abnormal soft tissue calcification. [facility]2022-11-20 10:43:53* Test Item Value Reference Range Interpretation Comme nts HGB A1C (test code = 4548-4) 5.7 % 4.0-5.7 JAY (test code = JAY) Reference RangesNormal: <5.7%Prediabetes: 5.7 - 6.4%Diabetes: > 6.5% Lab Interpretation (test code = 02463-8) [facility] [id number] 06:15:25* Test Item Value Reference Range Interpretation Comme nts FERRITIN (test code = 2167426742) 36.6 ng/mL 18.0-464.0 JAY (test code = JAY) Biotin has been reported to cause a negative bias, interpret results relative to patient's use of biotin. Lab Interpretation (test code = 29776-1) Normal [facility] [id number] 05:48:00* Test Item Value Reference Range Interpretation Comme nts IRON (test code = 7260556754) 109 ug/dL 50-160 TIBC (test code = 9480812820) 387 ug/dL 250-410 % FE SAT (test code = 0376098560) 28 % 20-50 Lab Interpretation (test cod e = 38493-6) Normal [facility] [id number] 05:10:55* Test Item Value Reference Range Interpretation Comme nts FREE T4 (test code = 8160823208) 1.12 See_Comment [Automated [employer]] The system which generated this result transmitted reference range: 0.78 - 2.20 ng/dL:. The reference range was not used to interpret this result as normal/abnormal. Lab Interpretation (test code = 09343-3) Normal [facility] CenterSEDIMENTATION [id number] 04:03:25* Test Item Value Reference Range Interpretation Comme nts ESR (test code = 74074-6) 2 See_Comment [Automated message] The system which generated this result transmitted reference range: 2 - 30 mm/HR. The reference range was not used to interpret this result as normal/abnormal. Lab Interpretation (test code = 45059-9) Normal [facility] CenterN-TERMINAL [id number] 03:50:48* Test Item Value Reference Range Interpretation Comme nts NT-proBNP (test code = 58483-1) <=125 Lab Interpretation (test cod e = 99573-2) Normal [facility] CenterTHYROID STIMULATING [id number] 03:15:04 * Test Item Value Reference Range Interpretation Comme nts TSH (test code = 3695103353) 8.65 See_Comment H [Automated [employer] ge] The system which generated this result transmitted reference range: 0.45 - 4.70 mIU/L. The reference range was not used to interpret this result as normal/abnormal. Lab Interpretation (test code = 96186-9) Abnormal [facility] CenterTROP[facility]IN [id number] 02:56:39* Test Item Value Reference Range Interpretation Comme nts TROPONIN I (test code = 5185764929) 0.002 ng/mL <=0.034 JAY (test code = [...] of biotin. Lab Interpretation (test code = 08961-7) Normal [facility] METABOLIC PANEL (NA, K, CL, CO2, GLUCOSE, BUN, CREATININE, CA)2022-11-20 02:40:39* Test Item Value Reference Range Interpretation Comme nts NA (test code = 2068365422) 135 mmol/L 135-145 K (test code = 8702333089) 4.1 mmol/L 3.5-5.0 CL (test code = 1929003767) 104 mmol/L 98-108 CO2 TOTAL (test code = 0571986596) 23 mmol/L 23-31 AGAP (test code = 5312624839) 8 2-16 BUN (test code = 7884858583) 14 mg/dL 7-23 GLUCOSE (test code = 4642934507) 100 mg/dL 70-110 CREATININE (test code = 3355141984) 0.67 mg/dL 0.60-1.25 CALCIUM (test code = 9982944044) 9.0 mg/dL 8.6-10.6 eGFR (test code = 2572093276) 139.3 mL/min/1.73m2 JAY (test code = JAY) [...] or urine or abnormalities in imaging tests). [facility] CenterHEP[facility] FUNCTION PANEL (45407) (ALB,T.PRO,BILI T,BU/BC,ALT,AST,ALK PHOS)2022-11-20 02:40:39* Test Item Value Reference Range Interpretation Comme nts TOTAL BILI (test code = 0261843516) 0.4 mg/dL 0.1-1.1 BILI UNCON (test code = 6677835467) 0.4 mg/dL 0.1-1.1 BILI CONJ (test code = 2332009303) 0.0 mg/dL 0.0-0.3 T PROTEIN (test code = 2879212316) 7.3 g/dL 6.3-8.2 ALBUMIN (test code = 1467861451) 4.6 g/dL 3.5-5.0 ALK PHOS (test code = 6162499779) 42 U/L 34-122 ALTv (test code = 1742-6) 86 U/L 5-50 H AST(SGOT) (test code = 7705055351) 41 U/L 13-40 H Lab Interpretation (test cod e = 32713-5) Abnormal [facility] WITH [id number] 02:33:58* Test Item Value Reference Range Interpretation [...] g/dL 31.2-35.0 H RDW-SD (test code = 01484-5) 39.2 fL 38.5-51.6 RDW-CV (test code = 788-0) 12.5 % 12.1-15.4 PLT (test code = 777-3) 220 See_Comment [Automated messa ge] The system which generated this result transmitted reference range: 150 - 328 10*3/?L. The reference range was not used to interpret this result as normal/abnormal. MPV (test code = 86496-3) 11.8 fL 9.8-13.0 NRBC/100 WBC (test code = 3355747433) 0.0 See_Comment [Automated [employer] ssage] The system which generated this result transmitted reference range: 0.0 - 10.0 /100 WBCs. The reference range was not used to interpret this result as normal/abnormal. NRBC x10^3 (test code = 8178277291) See_Comment [Automated messa ge] The system which generated this result transmitted reference range: 10*3/?L. The reference range was not used to interpret this result as normal/abnormal. GRAN MAT (NEUT) % (test code = 770-8) 68.5 % IMM GRAN % (test code = 2181255042) 0.30 % LYMPH % (test code = 736-9) 20.9 % MONO % (test code = 5905-5) 7.5 % EOS % (test code = 713-8) 2.3 % BASO % (test code = 706-2) 0.5 % GRAN MAT x10^3(ANC) (test code = 1516303988) 6.26 10*3/uL 1.99-6.95 IMM GRAN x10^3 (test code = 2384110111) 0.03 10*3/uL 0.00-0.06 LYMPH x10^3 (test code = 731-0) 1.91 10*3/uL 1.09-3.23 MONO x10^3 (test code = 742-7) 0.69 10*3/uL 0.36-1.02 EOS x10^3 (test code = 711-2) 0.21 10*3/uL 0.06-0.53 BASO x10^3 (test code = 704-7) 0.05 10*3/uL 0.01-0.09 Lab Interpretation (test code = 48503-4) Abnormal [facility] CenterCOMP. METABOLIC PANEL (47138)2022-09-25 13:24:42* Test Item Value Reference Range Interpretation Comme nts NA (test code = 3622939307) 138 mmol/L 135-145 K (test code = 6997016036) 3.7 mmol/L 3.5-5.0 CL (test code = 9412998078) 102 mmol/L 98-108 CO2 TOTAL (test code = 9056861089) 25 mmol/L 23-31 AGAP (test code = 1281954535) 11 2-16 BUN (test code = 3939333692) 15 mg/dL 7-23 GLUCOSE (test code = 8195101988) 119 mg/dL 70-110 H CREATININE (test code = 4040170049) 0.80 mg/dL 0.60-1.25 TOTAL BILI (test code = 4003070312) 0.5 mg/dL 0.1-1.1 CALCIUM (test code = 6035267342) 8.7 mg/dL 8.6-10.6 T PROTEIN (test code = 8880307433) 7.8 g/dL 6.3-8.2 ALBUMIN (test code = 8304393091) 4.5 g/dL 3.5-5.0 ALK PHOS (test code = 2536022627) 45 U/L 34-122 ALTv (test code = 1742-6) 82 U/L 5-50 H AST(SGOT) (test code = 4900845814) 44 U/L 13-40 H eGFR (test code = 4518103642) 113.5 mL/min/1.73m2 JAY (test code = JAY) [...] imaging tests). Lab Interpretation (test code = 84517-7) Abnormal [facility] CenterLIPASE2023-[facility]-09 13:24:02* Test Item Value Reference Range Interpretation Comme nts LIPASE (test code = 3391908018) 290 U/L 0-220 H Lab Interpretation (test cod e = 03951-4) Abnormal [facility] WITH [id number] 13:10:59* Test Item Value Reference Range Interpretation Comme nts WBC (test code = 6690-2) 8.31 See_Comment [Automated [employer] ge] The system which generated this result transmitted reference range: 4.20 - 10.70 10*3/?L. The reference range was not used to interpret this result as normal/abnormal. RBC (test code = 789-8) 5.34 See_Comment [Automated [employer] ge] The system which generated this result [...] g/dL 31.2-35.0 H RDW-SD (test code = 84018-8) 38.1 fL 38.5-51.6 L RDW-CV (test code = 788-0) 12.4 % 12.1-15.4 PLT (test code = 777-3) 202 See_Comment [Automated messa ge] The system which generated this result transmitted reference range: 150 - 328 10*3/?L. The reference range was not used to interpret this result as normal/abnormal. MPV (test code = 06637-1) 11.9 fL 9.8-13.0 NRBC/100 WBC (test code = 8473805850) 0.0 See_Comment [Automated [employer] ssage] The system which generated this result transmitted reference range: 0.0 - 10.0 /100 WBCs. The reference range was not used to interpret this result as normal/abnormal. NRBC x10^3 (test code = 5324716965) See_Comment [Automated messa ge] The system which generated this result transmitted reference range: 10*3/?L. The reference range was not used to interpret this result as normal/abnormal. GRAN MAT (NEUT) % (test code = 770-8) 70.7 % IMM GRAN % (test code = 4526400004) 0.80 % LYMPH % (test code = 736-9) 18.4 % MONO % (test code = 5905-5) 7.0 % EOS % (test code = 713-8) 2.6 % BASO % (test code = 706-2) 0.5 % GRAN MAT x10^3(ANC) (test code = 1342076963) 5.87 10*3/uL 1.99-6.95 IMM GRAN x10^3 (test code = 2615182565) 0.07 10*3/uL 0.00-0.06 H LYMPH x10^3 (test code = 731-0) 1.53 10*3/uL 1.09-3.23 MONO x10^3 (test code = 742-7) 0.58 10*3/uL 0.36-1.02 EOS x10^3 (test code = 711-2) 0.22 10*3/uL 0.06-0.53 BASO x10^3 (test code = 704-7) 0.04 10*3/uL 0.01-0.09 Lab Interpretation (test code = 83920-7) Abnormal [facility]2022-[facility]-02 18:18:55* Test Item Value Reference Range Interpretation Comme nts MAGNESIUM (test code = 5827711429) 1.6 mg/dL 1.7-2.4 L Lab Interpretation (test cod e = 15828-3) Abnormal [facility] Center[facility]OLIC PANEL (28990)2021-04-18 18:18:35* Test Item Value Reference Range Interpretation Comme nts NA (test code = 7610831821) 136 mmol/L 135-145 K (test code = 8864246670) 4.6 mmol/L 3.5-5.0 CL (test code = 5782364279) 102 mmol/L 98-108 CO2 TOTAL (test code = 9027154954) 24 mmol/L 23-31 AGAP (test code = 5442147146) 2-16 BUN (test code = 0670931798) 12 mg/dL 7-23 GLUCOSE (test code = 9213279714) 95 mg/dL 70-110 CREATININE (test code = 0039292882) 0.78 mg/dL 0.60-1.25 TOTAL BILI (test code = 4130973616) 0.6 mg/dL 0.1-1.1 CALCIUM (test code = 2627988434) 9.3 mg/dL 8.6-10.6 T PROTEIN (test code = 8636719825) 7.1 g/dL 6.3-8.2 ALBUMIN (test code = 3643499386) 4.6 g/dL 3.5-5.0 ALK PHOS (test code = 0192679326) 54 U/L 34-122 ALTv (test code = 1742-6) 53 U/L 5-50 H AST(SGOT) (test code = 0333751968) 37 U/L 13-40 eGFR (test code = 2895954044) mL/min/1.73m2 JAY (test code = JAY) Association [...] imaging tests). Lab Interpretation (test code = 44574-2) [facility]normal [facility] 18:18:35* Test Item Value Reference Range Interpretation Comme nts LIPASE (test code = 6595539156) 49 U/L 0-220 Lab Interpretation (test cod e = 38085-5) Normal [facility] CenterCBC WITH [id number] 18:05:30* Test Item Value Reference Range Interpretation Comme nts WBC (test code = 6690-2) See_Comment H [Automated [employer]] The system which generated this result transmitted reference range: 4.20 - 10.70 10*3/?L. The reference range was not used to interpret this result as normal/abnormal. RBC (test code = 789-8) See_Comment [Automated [employer] ge] The system which generated this result [...] 35.0 g/dL 31.2-35.0 RDW-SD (test code = 98038-3) 37.9 fL 38.5-51.6 L RDW-CV (test code = 788-0) 12.5 % 12.1-15.4 PLT (test code = 777-3) See_Comment [Automated [employer]] The system which generated this result transmitted reference range: 150 - 328 10*3/?L. The reference range was not used to interpret this result as normal/abnormal. MPV (test code = 69813-8) 12.1 fL 9.8-13.0 NRBC/100 WBC (test code = 3710020194) See_Comment [Automated me ssage] The system which generated this result transmitted reference range: 0.0 - 10.0 /100 WBCs. The reference range was not used to interpret this result as normal/abnormal. NRBC x10^3 (test code = 3916234796) <0.01 See_Comment [Automated messa ge] The system which generated this result transmitted reference range: 10*3/?L. The reference range was not used to interpret this result as normal/abnormal. GRAN MAT (NEUT) % (test code = 770-8) 72.0 % IMM GRAN % (test code = 0224907375) 0.60 % LYMPH % (test code = 736-9) 19.4 % MONO % (test code = 5905-5) 6.7 % EOS % (test code = 713-8) 1.0 % BASO % (test code = 706-2) 0.3 % GRAN MAT x10^3(ANC) (test code = 8895712469) 8.94 10*3/uL 1.99-6.95 H IMM GRAN x10^3 (test code = 9308414857) 0.08 10*3/uL 0.00-0.06 H LYMPH x10^3 (test code = 731-0) 2.41 10*3/uL 1.09-3.23 MONO x10^3 (test code = 742-7) 0.83 10*3/uL 0.36-1.02 EOS x10^3 (test code = 711-2) 0.13 10*3/uL 0.06-0.53 BASO x10^3 (test code = 704-7) 0.04 10*3/uL 0.01-0.09 Lab Interpretation (test code = 91462-3) Abnormal [facility] Notes Date/Time Note Provider Source 2023-10-01 16:55:00 [...] accompanied by significant other. Nicolette Olvera RN [facility] 2023-10-01 15:56:56 Pt states, "I just came from my PCP. They wanted me to come here to get more evaluated for my hemmorids. I spoke to a access representative on the phone who said I could come here to go to the ER and have them possibly surgically removed. The pain is a 15 on the 10 scale." Pt appears in no acute distress and appears to be sitting comfortably. Domi Cazares RN [facility] 2023-10-01 15:51:00 [facility] Emergency Department Note Patient Name: Angel Chaney Date of : 1990 33 year old male Treatment Room: [facility] [facility] TEZ/LIBIA Primary Care Physician: Gisella Lind Patient Escorted [...] for follow-up Gisella Lind MD Specialty: -FAMILY [facility] [place] [address] [facility] [id number] Instructions: As needed Electronically signed by: Juliana Baird DO 10/01/23 1636 T [facility] 2023-10-01 13:39:27 Chief Complaint Patient presents with Hemorrhoids Hemorrhoid issues. Bright red and dark blood in stool. Increased pain. Mitzi Paniagua MA II [facility] 2023-08-12 12:41:08 Pt given printed and [...] steady gait, in no apparent distress, T [facility] 2023-08-12 11:36:45 Patient arrived ambulatory c/o of lower back pain that started Friday. Denies any injury. States pain is shooting down his right leg. Attempted heating pad and ibuprofen at home with no relief. T Genoveva Stapleton RN [facility] 2023-08-12 11:30:00 [facility] Emergency Department Note Demographics Patient Name: Angel Chaney Date of : 1990 33 year old Treatment Room: [facility] TEZ/LIBIA Primary Care Physician: Gisella Lind Pre [facility] Care Patient Escorted by: Family [5] Mode of Arrival: Personal means [1] EMS Treatment Prior to ED Arrival: [employer] treatment: Analgesic [employer] treatment comments: ibuprofen around 7 am ED [...] taking these medications No medications on file [employer] is used frequently and may produce errors. Promptly contact for obvious discrepancies. Willian Perez MD, FACEP, FAAEM Market Analyst of Emergency and Internal Medicine [facility] #[id number] Willian Perez MD 08/12/23 8534 [facility] 2023-06-28 20:21:17 Pt discharged with diagnosis of raccoon bite. Printed and verbal instructions reviewed with and given to patient. Prescriptions given x 1. Pt verbalized understanding of teaching, medications, and recommended follow-up. Denies questions or concerns at this time. Pt ambulatory at discharge. Appears in no apparent distress. No ataxia noted. Accompanied by family member. Referral sent to for follow-up rabies vaccinations. [facility] 2023-06-28 19:48:06 Applied nonstick drsg and secured w/ kerlix. Educated on s/sx infection. Patient and able to teach back. Medicated per EMAR. Awaiting DC orders. T [facility] 2023-06-28 19:33:06 Order rec'd for 800 mg ibuprofen per provider. T [facility] 2023-06-28 18:50:00 Pt alert, color improved, A&OX4. remains in room. Medicated per EMAR. [facility] 2023-06-28 18:42:00 During infiltration of medication to left thumb by provider pt noted to hyperventilate, vagal down, and syncope. in room. Reclined chair for safety, applied cool compresses to neck and forehead. VSS, HR new but rising. RR even, unlabored. Pallor and diaphoresis noted during episode. [facility] 2023-06-28 17:45:00 Placed pt's left hand in sterile water and hibaclens soak. [facility] 2023-06-28 16:45:34 Patient states: "About 4 hours ago I was attacked by a raccoon." Reports bite to left thumb. Hazel Cote RN [facility] 2023-05-31 18:29:09 Pt given printed and [...] in no apparent distress, Viktoriya Frias RN [facility] 2023-05-31 17:03:57 Patient states: "About 3 weeks ago I fell on my right knee and it's been killing me ever since" Hazel Cote RN [facility] 2023-05-31 17:00:00 [facility] Emergency Department Note Patient Name: Angel Chaney Date of : 1990 33 year old male Treatment [facility] [place] Primary Care Physician: Gisella Lind Patient Escorted by: Family [5] Mode of Arrival: Personal means [1] EMS Treatment Prior to ED Arrival: [employer] treatment: Medication (comment) [employer] treatment comments: rx pain meds Travel and [...] signed by: India Dickey DO 05/31/23 1753 [facility] 2023-05-23 09:19:11 Chief Complaint Patient presents with Knee Pain RIGHT KNEE PAIN FOR 12 YEARS. HE FELL LAST FRIDAY AND THE PAIN HAS FLARED UP. HE HAS NEVER HAD ANY TREATMENT FOR THE PAIN. NO XRAYS. Mitzi Paniagua MA II [facility] Mitzi Paniagua MA, II [facility] 2023-03-18 13:37:42 Patient discharged with diagnosis of bronchitis. Follow up with pcp. Take rx as prescribed. Verbalized understanding. [facility] 2023-03-18 12:36:21 Cough and sore throat x 1 week. 2 weeks ago he was diagnosed with covid. Coughing up dark green sputum. IERIER James Malone RN [facility] 2023-02-28 20:53:41 Pt given printed and [...] with steady gait, in no apparent distress IERIER Carmen Peña RN [facility] 2023-02-28 19:44:18 Pt presents with cold symptoms since last night, bodyaches, cough, sore throat and loss of taste and smell. IERIER Bernadine Ji RN [facility] 2022-09-28 11:03:07 Formatting of this n [...] in no apparent distress, James Malone RN [facility] 2022-09-28 09:29:34 Formatting of this n [...] has no pain. T Viktoriya Frias RN [facility] 2022-09-25 09:52:48 Formatting of this n [...] ER.Escorted by RN. Dionne Artis RN T [facility] 2022-09-25 07:38:45 Formatting of this n [...] Patient aware of plan of care. Dionne Iron, RN [facility] 2022-09-25 07:08:48 Formatting of this n ote might be different from the original. Abd pain ~ 1 week with occasional nausea/vomiting - last emesis episode this morning prior to ER arrival. Points to R/L lower abdominal pain when describing pain. Denies shortness of breath , chest pain, fever, chills, and diarrhea. Hx - Ulcers Dionne Artis RN [facility] 2022-09-06 13:52:37 Formatting of this n [...] time. VSS, medications reconciled. T [facility]
[2024-01-19 14:30] LABS: Absolute Eosinophils 0.1 K/uL (0-0.5); Absolute Lymphocytes (CBC) 1.8 K/uL (0.7-4.9); Absolute Monocytes 0.7 K/uL (0.1-1.3); Absolute Neutrophil 8.8 K/uL (1.8-8.0); Basophils % 0.2 % (0-1.3); Hematocrit 48.2 % (39.6-49.0); Hemoglobin 15.9 g/dL (13.6-17.9); Lymphocytes % 16.1 % (15.3-44.8); MCH 28.4 pg (27.0-35.0); MPV 10.1 fL (7.6-11.3); Monocytes % 6.3 % (3.3-12.3); Neutrophils % 76.4 % (41.7-73.7); Nucleated Red Blood Cells % 0.2 % (0-0); Platelets 212 thou/uL (152-406); RBC Red Blood Cell Count 5.61 M/uL (4.33-5.43)
[2024-01-19 14:48] LABS: Anion Gap 6.8 mEq/L (5.0-15.0); BUN Blood Urea Nitrogen 14 mg/dL (7-18); Bicarbonate 27 mEq/L (21-32); Glomerular Filtration Rate 106 ml/min (=/>90); Glucose Level 96 mg/dL (74-106); Potassium 3.8 mEq/L (3.5-5.1); Sodium Level 136 mEq/L (136-145)
[2024-01-19 14:49] LABS: Troponin High Sensitivity < 3.0 pg/mL (<58.9)
--- NOTE | 2024-01-19 14:54 | RAD REPORT ---
EXAM: CT Head Brain Wo Cont HISTORY: DIZZINESS COMPARISON: None TECHNIQUE: Multiple contiguous axial images were obtained for a CT of the brain without contrast. Sag ittal and coronal reformats were performed. One or more of the following dose reduction techniques were used: Automated exposure control, adjus tment of the mA and kV according to patient size, and iterative reconstruction. Unless otherwise specified, incidental findings do not require dedicated imaging follow-up. FINDINGS: No evidence of hydrocephalus, intracranial hemorrhage, or extra-axial fluid collection. The brain is normal in morphology. The calvarium is intact. The visualized paranasal sinuses and mastoid air cells are essentially clear . IMPRESSION: No evidence of acute intracranial abnormality.
--- NOTE | 2024-01-19 15:35 | RAD REPORT ---
EXAM: C Spine Wo Con HISTORY: PAIN, FALL COMPARISON: None TECHNIQUE: Multiple contiguous axial images were obtained in a CT of the cervical spine without IV co ntrast. Sagittal and coronal reformats were performed. One or more of the following dose reduction techniques were used: Automated exposure control, adjustment of the mA and kV according to patient si ze, and iterative reconstruction. Unless otherwise specified, incidental findings do not require dedicated imaging follow-up. FINDINGS: The vertebral bodies and intervertebral discs demonstrate normal height and alignment without fractur e or subluxation. No degenerative changes are present. No prevertebral soft tissue swelling is seen. The posterior facets are well aligned. Normal alignment of the skull base with the cervical spine is seen. The lung apices are unremarkable. The cervical soft tissues are unremarkable. IMPRESSION: No evidence of acute osseous abnormality of the cervical spine.
--- NOTE | 2024-01-19 15:55 | EDPHYS ---
Physician Documentation [facility] Name: Angel Osborne Age: 33 yrs Sex: Male : 1990 Arrival Date: 01/19/2024 Time: 13:01 Bed 12 Private MD: ED Physician Sher Gee HPI: 01/18 13:52 This 33 yrs old Male presents to ER via Ambulatory with complaints of ec2 Dizziness. 13:52 Patient arrives today for evaluation of dizziness. Patient reports that he has been ec2 experiencing bouts of what he describes as dizziness and lightheadedness ongoing for several months with intermittent infrequent bouts. Reports that he feels like he is get a pass out as well as some bouts of vertigo with the room spinning sensation. Reports that he had a fall earlier today. No chest pain or difficulty breathing, no significant medical problems, no daily medications aside from pantoprazole. Historical: - Allergies: 13:42 NKA; aa5 - Home Meds: 13:42 trazodone Oral [Active]; pantoprazole oral [Active]; aa5 - PMHx: 13:42 Depression; hemorrhoids; Acid Reflux; aa5 - PSHx: 13:42 Hemorrhoidectomy; aa5 - Immunization history:: Adult Immunizations. - Infectious Disease History:: Denies. - Social history:: Smoking status: Reported history of juuling and/or vaping. ROS: 13:52 Constitutional: as per hpi ec2 Exam: 13:52 Constitutional: GEN: NAD Head: atraumatic Eyes: EOMI Ears: External ears are ec2 normal. CV: regular rate LUNGS: no respiratory distress ABD: non-distended SKIN: no evidence of rashes MSK: no evidence of trauma. Neuro: Cranial nerves II through XII intact, strength intact, sensation intact, normal [id number], no pronator drift appreciated. Vital Signs: 13:40 BP 128 / 96; Pulse 98; Resp 18 S; Temp 98.6(O); Pulse Ox 97% on R/A; Weight 122.47 kg aa5 (R); Height 6 ft. 0 in. (R); 13:40 Body Mass Index 36.62 (122.47 kg, 182.88 cm) aa5 MDM: 13:17 Medical Screening Exam initiated ec2 13:52 Data reviewed: vital signs, nurses notes. ED course: Patient arrives today for ec2 evaluation of dizziness and lightheadedness. Examination shows neuro intact individuals otherwise in no acute distress with a reassuring examination. Will obtain lab work, EKG, CT scan of the head. Differential diagnose include process such as intracranial mass, electrolyte disturbances, arrhythmia, anemia.. 14:34 ED course: EKG independently reviewed and interpreted by me, shows normal sinus rhythm, ec2 rate of 75, no acute ST segment elevations, intervals are nonactionable.. 15:54 ED course: CBC is unrevealing, metabolic profile reassuring, troponin within normal ec2 ranges, CT scan of the head shows no acute screening process, C-spine without fracture. Will discharge home. Return precautions given. Suspect possible vertigo. Doubt stroke given lack of focal neurologic symptoms. Return precautions given.. 01/18 13:52 Order name: Basic Metabolic Panel; Complete Time: 15:54 ec2 01/18 13:52 Order name: CBC with Diff; Complete Time: 15:54 ec2 01/18 13:52 Order name: Troponin HS; Complete Time: 15:54 ec2 01/18 13:52 Order name: CT Head Brain wo Cont; Complete Time: 15:54 ec2 01/18 14:07 Order name: C Spine Wo Con; Complete Time: 15:54 EDMS 01/18 13:52 Order name: Cardiac monitoring; Complete Time: 19:24 ec2 01/18 13:52 Order name: EKG - Nurse/Tech; Complete Time: 19:24 ec2 01/18 13:52 Order name: IV Saline Lock; Complete Time: 14:26 ec2 01/18 13:52 Order name: Labs collected and sent; Complete Time: 14:26 ec2 01/18 13:52 Order name: O2 Per Protocol; Complete Time: 19:24 ec2 01/18 13:52 Order name: O2 Sat Monitoring; Complete Time: 19:24 ec2 Administered Medications: No medications were administered Disposition Summary: 01/19/24 15:54 Discharge Ordered Notes: Location: Home ec2 Condition: Stable ec2 Diagnosis - Dizziness ec2 - Other peripheral vertigo ec2 Followup: ec2 - With: Private Physician - When: - Reason: Recheck today's complaints, Re-evaluation by your physician Discharge Instructions: - Discharge Summary Sheet ec2 - Dizziness, [id number] ec2 Forms: - Medication Reconciliation Form ec2 - Antibiotic Education ec2 - Prescription Opioid Use ec2 - Patient Portal Instructions ec2 - Leadership Thank You Letter ec2 Prescriptions: - Meclizine 25 mg Oral Tablet - take 1 tablet ORAL route every 8 hours As needed; 30 tablet; Refills: 0, ec2 Product Selection Permitted Signatures: Dispatcher [employer] Chio Ordonez RN RN aa5 Sher Gee MD MD ec2 Corrections: (The following items were deleted from the chart) 13:52 13:52 Head Brain Wo Cont+CT.RAD.BRZ ordered. EDMS EDMS
--- NOTE | 2024-01-19 15:55 | ER ---
Nurse's Notes [facility] Name: Angel Osborne Age: 33 yrs Sex: Male : 1990 Arrival Date: 01/19/2024 Time: 13:01 Bed 12 Private MD: Diagnosis: Dizziness;Other peripheral vertigo Presentation: 01/18 13:40 Chief complaint: Patient states: "I've been having dizzy spells and today I went to aa5 work and I don't remember getting dressed and driving to work". Pt reports similar episodes "months ago". Pt also reports fall this morning at work and hitting head on wall. Denies LOC. Coronavirus screen: At this time, the client does not indicate any symptoms associated with coronavirus-19. Ebola Screen: Patient denies travel to an Ebola-affected area in the 21 days before illness onset. Initial Sepsis Screen: Does the patient meet any 2 criteria? HR > 90 bpm. Does the patient have a suspected source of infection? No. Patient's initial sepsis screen is negative. Risk Assessment: Do you want to hurt yourself or someone else? Patient reports no desire to harm self or others. Onset of symptoms was January 19, 2024. 13:40 Acuity: MIKE 3 aa5 13:40 Method Of Arrival: Ambulatory aa5 Triage Assessment: 16:22 General: Appears in no apparent distress. Behavior is calm. iw Historical: - Allergies: 13:42 NKA; aa5 - Home Meds: 13:42 trazodone Oral [Active]; pantoprazole oral [Active]; aa5 - PMHx: 13:42 Depression; hemorrhoids; Acid Reflux; aa5 - PSHx: 13:42 Hemorrhoidectomy; aa5 - Immunization history:: Adult Immunizations. - Infectious Disease History:: Denies. - Social history:: Smoking status: Reported history of juuling and/or vaping. Screenin:23 [facility] ED Fall Risk Assessment (Adult) History of falling in the last 3 months, iw including since admission No falls in past 3 months (0 pts) Confusion or Disorientation No (0 pts) Intoxicated or Sedated No (0 pts) Impaired Gait No (0 pts) Mobility Assist Device Used No (0 pt) Altered Elimination No (0 pt) Score/Fall Risk Level 0 - 2 = Low Risk Oriented to surroundings. Abuse screen: Denies threats or abuse. Denies injuries from another. Nutritional screening: No deficits noted. Nutritional screening: No deficits noted. On. Assessment: 15:00 General: Appears in no apparent distress. Behavior is calm, cooperative. Pain: iw Complains of pain in head. Neuro: Level of Consciousness is awake, alert, obeys commands, Oriented to person, time, situation, Moves all extremities. Full function. Cardiovascular: Patient's skin is warm and dry. Respiratory: Respiratory effort is even, unlabored, Respiratory pattern is regular, symmetrical. Derm: Skin is intact, is healthy with good turgor. Vital Signs: 13:40 BP 128 / 96; Pulse 98; Resp 18 S; Temp 98.6(O); Pulse Ox 97% on R/A; Weight 122.47 kg aa5 (R); Height 6 ft. 0 in. (R); 13:40 Body Mass Index 36.62 (122.47 kg, 182.88 cm) aa5 ED Course: 13:05 Patient arrived in ED. mg5 13:06 Sher Gee MD is Attending Physician. ec2 13:40 Arm band placed on. aa5 13:42 Triage completed. aa5 14:05 CT Head Brain wo Cont In Process Unspecified. EDMS 14:22 C Spine Wo Con In Process Unspecified. EDMS 14:26 Basic Metabolic Panel Sent. bc6 14:26 CBC with Diff Sent. bc6 14:26 Troponin HS Sent. bc6 14:27 Initial lab(s) drawn, by me, sent to lab. EKG done, by ED staff, reviewed by Sher Gee MD. Inserted saline lock: 20 gauge in left antecubital area, using aseptic technique. Blood collected. Flushed with 10 mL NS. 15:58 Demetria Rose, RN is Primary Nurse. iw 16:22 No provider procedures requiring assistance completed. IV discontinued, intact, iw bleeding controlled, No redness/swelling at site. Pressure dressing applied. Administered Medications: No medications were administered Medication: 15:00 VIS not applicable for this client. iw Outcome: 15:54 Discharge ordered by MD. ec2 16:23 Discharged to home ambulatory, iw 16:23 Condition: good 16:23 Discharge instructions given to patient, Instructed on discharge instructions, follow up and referral plans. medication usage, Demonstrated understanding of instructions, follow-up care, medications, Prescriptions given X 1, 16:24 Patient left the ED. iw Signatures: Dispatcher [employer] Demetria Rodriguez RN RN iw Calderon, Audri, RN RN aa5 Alanna Eric 6 Virgie Knox mg5 Sher eGe MD MD ec2
[2024-01-19 17:12] VITALS: BP 128/96; TEMP 98.6; O2SAT 97
== END 2024-01-19 16:24 | disposition home or self-care (01) ==
LOC: ER 13:01
DX: H81.399 Other peripheral vertigo, unspecified ear (principal)
CPT/HCPCS: 36415; 70450; 72125; 80048; 84484; 85025; 99284

== ENCOUNTER 2024-03-06 18:56 | Emergency (ER) | payer BC ==
--- OUTSIDE RECORDS SUMMARY | 2024-03-06 19:00 | XMS REPORT | Continuity of Care Document ---
Author Name Unknown Address [address] [facility] Jose Carlos. [address] [place] [address] [facility] thconnect Address [address] [facility]. [address] [place] [address] Care Team Providers Care Crew Director Name Role Phone Diogo BENDER, Gisella De Paz Primary Care Physician PIPPA REYNOSO Attending Clinician Unavailable ROSY Attending Clinician Unavailable MELIZA BENNETT Attending Clinician Unavailabl e LAB90 Attending Clinician Unavailable MD JESUS Attending Clinician Unavailab JOHN Moser Attending Clinician Unavailable JULIANA BAIRD Attending Clinician Unavailable JULIANA BAIRD Attending Clinician Unavailable Juliana Baird DO Attending Clinician RADHA HERNANDES Attending Clinician Unavailable WILLIAN PEREZ Attending Clinician Unavailable WILLIAN PEREZ Attending Clinician Unavailable LEEANN MCCOY Attending Clinician Unavailable [facility] Attending Clinician Un available Leeann Gomez Attending Clinician [phone] Unknown, Attending Attending Clinician Unavailab NO Guido Attending Clinician Unavailable No Nur MD Attending Clinician [phone] Kayla LIVINGSTON Attending Clinician Unavailable Darryl Owens MD Attending Clinician [phone] Kayla Scherer Attending Clinician +[phone] JENY HAIDER Attending Clinician Unavailable INDIA DICKEY Attending Clinician Unavailab India Small DO Attending Clinician +[phone] GISELLA LIND Attending Clinician Unava ilBANDAR Wills Attending Clinician Unavailable Bandar Richardson DO Attending Clinician + LINDA SANFORD Attending Clinician Unavailab Linda Howard Attending Clinician +[phone] SHAE GILLESPIE Attending Clinician Unavailable Shae Gillespie MD Attending Clinician + IVONNE SHULTZ Attending Clinician Unavailable Ivonne Shultz NP Attending Clinician + KACIE QUIROZ Attending Clinician Unavailable Doctor Unassigned, [place] Attending Clinician U justaailHAYDEN Marshall Attending Clinician Unavailable Jose Guadalupe Meraz MD Attending Clinician [phone] Hayden Braswell MD Attending Clinician [phone] CECIL CHATMAN Attending Clinician Unavailable MARAL GAMBLE Attending Clinician Unavailab Maral Wilson DO Attending Clinician +[phone] KAIN RAJPUT Attending Clinician Unavailable Kain Acosta Attending Clinician + IGGY WELLER Attending Clinician UnavailIggy Hernández Attending Clinician + [phone] MIHAI HAHN Attending Clinician Unavailable HARDY ZAVALA Attending Clinician UnavailHardy Casillas MD Attending Clinician + [phone] PARVEEN Attending Clinician Unavailable Gisella Lind MD Attending Clinician +[phone] INDIA DICKEY Admitting Clinician Unavailab BANDAR Pace Admitting Clinician Unavailable IVONNE SHULTZ Admitting Clinician Unavailable HAYDEN BRASWELL Admitting Clinician Unavailable Hayden Braswell MD Admitting Clinician [phone] PARVEEN Admitting Clinician Unavailable Kayla LIVINGSTON Admitting Clinician Unavailable Payers Payer Name Policy Type Policy Number Effective Date Expirati on Date Source [facility] 9 [id number] 2023 00:00:00 [facility] [id number] 00:00:00 Problems Condition Name Condition Details Condition Category Status Onset Date Resolution Date Last Treatment Date Treating Clinician Comments Source Chest pain Chest pain Disease Active 2022-02 00:00: 00 [facility] Obesity (BMI 30-39.9) Obesity (BMI 30-39.9) Disease Active 2022-02 00:00: 00 [facility] No known active problems No known active problems Disease [facility] Allergies, Adverse Reactions, Alerts Allergy Name Allergy Type Status Severity Reaction(s) Onset Date Inactive Date Treating Clinician Comments Source NO KNOWN ALLERGIE S Drug Class Active [facility] Social History Social Habit Start Date Stop Date Quantity Comments Source Gender identity [facility] Sexual orientation U [facility] History of tobacco use Passive smoker [facility] Alcoholic beverage intake 2023-07-12 00:00:00 2023-07-12 00:00:00 Current drinker of alcohol (finding) [facility] Alcohol intake 2023-05-31 00:00:00 2023-05-31 00:00:00 Current drinker of alcohol (finding) [facility] History of Social function 2022-11-20 00:00:00 2022-11-20 00:00:00 [facility] Tobacco use and exposure 2022-11-19 00:00:00 2022-11-19 00:00:00 Smokeless tobacco non-user [facility] Tobacco Comment 2022-11-19 00:00:00 2022-11-19 00:00:00 Patient states that he uses vapes with nicotine in replace of cigarettes [facility] Alcohol Comment 2022-11-19 00:00:00 2022-11-19 00:00:00 socially (once every few months) [facility] Exposure to SARS-CoV-2 (event) 2022-02-18 00:00:00 2022-02-28 15:26:00 Not sure [facility] Sex assigned at 1990 00:00:00 1990 00:00:00 [facility] Smoking Status Start Date Stop Date Source Tobacco smoking consumption unknown [facility] Smokes tobacco daily 2022-09-06 00:00:00 Joseline Bean - External Medications Ordered Medication Name Filled Medication Name Start Date Stop Date Current Medication? Ordering Clinician Indication Dosage Frequency Signature (SIG) Comments Components Source linaCLOtide (Linzess) 145 MCG oral Capsule 09-30 00:00: 00 Yes [id number] 145ug QD Take 1 capsule (145 mcg total) by mouth daily. Joseline trejo hydrocortis one 25 mg suppository 09-30 00:00: 00 Yes [id number] 25mg Insert 1 Suppositor y into rectum in the morning and 1 Suppositor y in the evening. [facility] dibucaine 1 % ointment 09-30 00:00: 00 Yes [id number] Apply to area(s) 3 (three) times daily as needed for Pain (scale 4-6) or Pain (scale 7-10). [facility] Pantoprazol e Sodium 40 MG oral Tablet Delayed Response 09-01 00:00: 00 Yes [id number] 40mg QD take 1 tablet by mouth every day Joseline trejo dexamethaso ne sod phos PF injection 10 mg 08-11 17:30: 00 08-11 17:20 :00 No 10mg 10 mg, Intramuscu lar, ONCE, 1 dose, On Fri08/12/23 at 1230, 1 mL [facility] ketorolac (TORADOL) injection 30 mg 08-11 17:30: 00 08-11 17:22 :00 No 30mg 30 mg, Intramuscu lar, ONCE, 1 dose, On Fri08/12/23 at 1230, POLA [facility] ibuprofen (IBU) tablet 800 mg 06-28 00:45: 00 06-28 00:34 :00 No 800mg 800 mg, Oral, ONCE, 1 dose, On 06/28/23 at 1945, [facility] rabies immune globulin (PF) (HYPERRAB (PF)) injection 2,481 Units 06-27 23:45: 00 06-27 23:51 :00 No 20U/kg 2,481 Units (rounded from 2,480 Units = 20 Units/kg ?124 kg), Intramuscu lar, ONCE, 1 dose, On 06/28/23 at 1845, Routine [facility] mupirocin 2 % ointment 06-27 00:00: 00 Yes [id number] Apply to area(s) 3 (three) times daily. [facility] HYDROcodone -acetaminop hen (NORCO 5) 5-325 mg tablet 1 tablet 05-30 22:15: 00 05-30 22:36 :00 No 1{tbl} 1 tablet, Oral, ONCE, 1 dose, On 05/31/23 at 1715, [facility] Valacyclovi r HCl (Valtrex) 500 MG oral Tablet 05-23 00:00: 00 09-30 00:00 :00 No [id number] 500mg Q.5D Take 1 tablet (500 mg total) by mouth 2 times daily. Joseline trejo methylPREDN ISolone 4 MG oral Tablet Therapy Pack 05-22 00:00: 00 09-30 00:00 :00 No [id number] 1{lam} Take 1 lam by mouth See Admin Instructio ns Use as directed. Joseline trejo Celecoxib (CeleBREX) 200 MG oral Capsule 05-22 00:00: 00 09-30 00:00 :00 No [id number] 200mg Q.5D Take 1 capsule (200 mg total) by mouth 2 times daily. Joseline trejo Trazodone HCl 150 MG oral Tablet 03-22 00:00: 00 Yes [id number] 150mg QD Take 1 tablet (150 mg total) by mouth nightly. Joseline trejo benzonatate 100 mg capsule 03-18 00:00: 00 Yes [id number] 100mg Take 1 capsule by mouth 3 (three) times daily as needed for Cough. [facility] azithromyci n 250 mg tablet 03-18 00:00: 00 Yes [id number] 250mg Take 1 tablet by mouth in the morning. [facility] methylPREDN ISolone (MEDROL, LAM,) 4 mg tablets 03-18 00:00: 00 Yes [id number] Take by mouth SEE-INSTRU CTIONS. follow package directions [facility] ibuprofen (IBU) tablet 600 mg 03-01 02:00: 00 03-01 01:58 :00 No 600mg 600 mg, Oral, ONCE, 1 dose, On Fri02/28/23 at 2000, POLA [facility] benzonatate 100 mg capsule 02-28 00:00: 00 Yes [id number] 100mg Take 1 capsule by mouth 3 (three) times daily as needed for Cough. [facility] Albuterol HFA 108 (90 Base) MCG/ACT [...] 02-28 00:00: 00 03-06 05:59 :00 No [id number] 4mg Take 1 tablet by mouth every 8 (eight) hours as needed for Nausea and Vomiting (N/V) for up to 5 days. [facility] cefTRIAXone (ROCEPHIN) injection 500 mg 2022-02 08:30: 00 Yes 500mg 500 mg, Intramuscu lar, Q24H, First dose on 01/11/23 at 0230, Until Discontinu ed, POLA
Re ason for Anti-Infec tive: Empiric Therapy for Suspected Infection< br>Empiric Therapy Site: Urine
D uration of therapy: Once (ED) [facility] acetaminoph en (TYLENOL) tablet 650 mg 2022-02 07:30: 00 01-11 07:32 :00 No 650mg 650 mg, Oral, ONCE, 1 dose, On 01/11/23 at 0130, POLA [facility] Doxycycline Hyclate 100 MG oral Capsule 2022-02 00:00: 00 05-22 00:00 :00 No 100mg Take 1 capsule (100 mg total) by mouth 2 times daily. Joseline trejo ondansetron 4 mg disintegrat ing tablet 2022-02 00:00: 00 02-28 00:00 :00 No [id number] 4mg Take 1 tablet by mouth every 8 (eight) hours as needed for Nausea and Vomiting (N/V). [facility] Pantoprazol e Sodium 40 MG oral Tablet Delayed Response 2022-02 00:00: 00 Yes [id number] 40mg TAKE 1 TABLET BY MOUTH EVERY DAY Joseline trejo sulfur hexafluorid e microsphr (LUMASON) injection 5 mL 2022-02 16:15: 00 11-20 16:15 :00 No [id number] 5mL 5 mL, Intravenou s, ONCE, 1 dose, On Fri11/20/22 at 1115, Routine
environmental field team member approving Restricted medication : HAYDEN BRASWELL [facility] pantoprazol e (PROTONIX) EC tablet 40 mg 2022-02 0 14:00: 00 Yes 40mg 40 mg, Oral, DAILY, First dose on Fri11/20/22 at 0900, Until Discontinu ed, Routine [facility] sennosides- docusate sodium (SENOKOT-S) 8.6-50 mg per tablet 1 tablet 2022-02 14:00: 00 Yes 1{tbl} 1 tablet, Oral, DAILY, First dose on Fri11/20/22 at 0900, Until Discontinu ed, Routine [facility] HYDROcodone -acetaminop hen (NORCO 5) 5-325 mg tablet 1 tablet 2022-02 03:15: 00 11-20 02:44 :00 No 1{tbl} 1 tablet, Oral, ONCE, 1 dose, On Fri11/19/22 at 2215, Routine [facility] ondansetron (ZOFRAN (PF)) injection 4 mg 2022-02 03:09: 48 Yes 4mg 4 mg, Slow IV Push, Q6HPRN, Nausea and Vomiting (N/V), Starting on Fri11/19/22 at 2209
Do ses of ondansetro n 16 mg and above need to be administer ed via IV piggyback. For Dose >=24mg ECG monitoring is advisable.
[facility] heparin (porcine) injection 5,000 Units 2022-02 03:00: 00 Yes 5000U 5,000 Units, Subcutaneo us, Q8H, First dose on Fri11/19/22 at 2200, Until Discontinu ed, Routine [facility] Lidocaine (LIDOCARE) 4 % patch 1 Patch 2022-02 02:30: 00 11-20 14:44 :00 No 1{patch } 1 Patch, Topical, Administer over 12 Hours, ONCE, 1 dose, On Fri11/19/22 at 2130, Routine [facility] sucralfate (CARAFATE) tablet 1 g 2022-02 0 02:00: 00 Yes 1g 1 g, Oral, AC+HS, First dose on Fri11/19/22 at 2100, Until Discontinu ed, Routine [facility] acetaminoph en (TYLENOL) tablet 650 mg 2022-02 0-04 01:22: 59 Yes 650mg 650 mg, Oral, Q6HPRN, Starting on Fri11/19/22 at 2021, Until Discontinu ed, Routine, Pain (scale 1-3) [facility] sucralfate 1 gram tablet 2022-02 0-04 00:00: 00 12-05 04:59 :00 No [id number] 1g Take 1 tablet by mouth before meals and at bedtime for 14 days. [facility] Ondansetron (ZOFRAN) 4 MG oral TABLET DISPERSIBLE 2022-02 0-03 00:00: 00 09-30 00:00 :00 No [id number] 4mg [id number] 3D Take 1 tablet (4 mg total) by mouth every 8 hours as needed for nausea. Joseline trejo Pantoprazol e Sodium 40 MG oral Tablet Delayed Response 10-16 00:00: 00 Yes [id number] 40mg TAKE 1 TABLET BY MOUTH EVERY DAY Joseline trejo Metronidazo le 500 MG oral Tablet 10-15 00:00: 00 Yes [id number] 500mg Take 1 tablet (500 mg total) by mouth 2 times daily. Joseline trejo Valacyclovi r HCl (Valtrex) 500 MG oral Tablet 10-15 00:00: 00 Yes [id number] 500mg Take 1 tablet (500 mg total) by mouth 2 times daily. Joseline trejo sulfamethox azole-trime thoprim 800-160 mg per tablet 09-28 00:00: 00 10-06 04:59 :00 No [id number] 1{tbl} Take 1 tablet by mouth every 12 (twelve) hours for 7 days. [facility] ketorolac (TORADOL) injection 15 mg 09-25 14:45: 00 09-25 13:56 :00 No 15mg 15 mg, Slow IV Push, ONCE, 1 dose, On Fri09/25/22 at 0945, POLA [facility] ondansetron (ZOFRAN (PF)) injection 4 mg 09-25 12:45: 00 09-25 12:43 :00 No 4mg 4 mg, Slow IV Push, ONCE, 1 dose, On Fri09/25/22 at 0745, POLA [facility] maalox:diph enhydrAMINE :lidocaine 2 % viscous 1:1:1 (FIRST-MOUT HWASH BLM) oral suspension 15 mL 09-25 12:45: 00 09-25 12:42 :00 No 15mL 15 mL, Oral, ONCE, 1 dose, On Fri09/25/22 at 0745, Routine [facility] proMETHazin e 25 mg tablet 09-25 00:00: 00 11-20 00:00 :00 No [id number] 25mg Take 1 tablet by mouth every 6 (six) hours as needed for Nausea and Vomiting (N/V). [facility] pantoprazol e 40 mg EC tablet 09-06 00:00: 00 Yes 40mg Take 1 tablet by mouth. [facility] Hydrocortis one Acetate (Hemmorex-H C) 25 MG rectal Suppository 09-06 00:00: 00 05-21 00:00 :00 No [id number] 25mg Apply 1 suppositor y (25 mg total) rectally 2 times daily Joseline trejo NIFEdipine 0.2 % in Lidocaine 5 % 60 g compounded rectal ointment 09-06 00:00: 00 05-21 00:00 :00 No [id number] Apply 1 applicatio n. rectally 2 times daily (Apply pea-sized amount to fingertip and then apply just inside anus) Joseline trejo Mupirocin (BACTROBAN) 2 % apply externally Ointment 08-04 00:00: 00 09-30 00:00 :00 No [id number] 3D Apply 1 applicatio n. topically 3 times daily Joseline trejo mupirocin 2 % ointment 08-03 00:00: 00 Yes [id number] Apply to area(s) 3 (three) times daily. [facility] cephALEXin (KEFLEX) 500 mg capsule 08-03 00:00: 00 08-11 04:59 :00 No [id number] 500mg Take 1 capsule by mouth 4 (four) times daily for 7 days. [facility] doxycycline hyclate 100 mg capsule 08-03 00:00: 08-11 04:59 :00 No [id number] 100mg Take 1 capsule by mouth in the morning and 1 capsule in the evening. Do all this for 7 days. [facility] traZODone 150 mg tablet 06-28 00:00: 00 Yes 150mg Take 1 tablet by mouth. [facility] meclizine (TRAVEL-EAS E (MECLIZINE) ) tablet 25 mg 02-28 21:15: 00 02-28 21:26 :00 No 25mg 25 mg, Oral, ONCE, 1 dose, On Kimmy 02/28/22 at 1515, POLA [facility] meclizine 25 mg tablet 02-28 00:00: 00 09-28 00:00 :00 No 25mg Take 1 tablet by mouth. [facility] predniSONE 20 MG oral tablet 02-22 00:00: 00 Yes [id number] 20mg Take 1 tablet (20 mg total) by mouth daily Joseline trejo Ondansetron HCl 4 MG oral Tablet 02-22 00:00: 00 11-19 00:00 :00 No [id number] 4mg [id number] 3D Take 1 tablet (4 mg total) by mouth every 8 hours as needed for nausea Joseline trejo Amoxicillin 500 MG oral Capsule 02-19 00:00: 00 Yes [id number] TAKE 1 CAPSULE BY MOUTH TWICE A DAY IN THE MORNING AND EVENING FOR 10 DAYS Joseline trejo meclizine (TRAVEL-EAS E (MECLIZINE) ) tablet 25 mg 2021-02- 18:00: 00 02-13 18:02 :00 No 25mg 25 mg, Oral, ONCE, 1 dose, On Fri02/13/22 at 1200, POLA [facility] amoxicillin 500 mg capsule 2021-02 00:00: 00 02-24 05:59 :00 No [id number] 500mg Take 1 capsule by mouth in the morning and 1 capsule in the evening. Do all this for 10 days. [facility] meclizine 25 mg tablet 2021-02 00:00: 00 02-19 05:59 :00 No [id number] 25mg Take 1 tablet by mouth 3 (three) times daily as needed for Dizziness for up to 5 days. [facility] Trazodone HCl 150 MG oral Tablet 08-02 00:00: 00 Yes 150mg Take 1 tablet (150 mg total) by mouth nightly Joseline Bean - Externa l magnesium sulfate in water 2 gram/50 mL (4 %) infusion 2 g 04-18 20:15: 00 04-18 20:18 :00 No 2g 2 g, IV Piggyback, ONCE, 1 dose, On Fri04/18/21 at 1415, Routine [facility] iopamidol (ISOVUE 370-500 mL) injection 120 mL 04-18 19:15: 00 04-18 17:55 :00 No [id number] 120mL 120 mL, Intravenou s, ONCE, 1 dose, On Fri04/18/21 at 1315, Routine [facility] Trazodone HCl 150 MG oral Tablet [...] Human Rabies Vaccine From Chicken Fibroblast Culture (JACINDAT) Unknown Completed [facility] TD Pres-Free Unknown Completed [facility] Human Rabies Vaccine From Chicken Fibroblast Culture (RABAVERT) Unknown Completed [facility] TD Pres-Free Unknown Completed [facility] SARS-COV-2 COVID-19 VACCINE - (MODERNA) Unknown Completed [facility] Human Rabies Vaccine From Chicken Fibroblast Culture (RABAVERT) Unknown Completed [facility] Human Rabies Vaccine From Chicken Fibroblast Culture (RABAVERT) Unknown Completed [facility] TD Pres-Free Unknown Completed [facility] SARS-COV-2 COVID-19 VACCINE - (MODERNA) Unknown Completed [facility] Human Rabies Vaccine From Chicken Fibroblast Culture (RABAVERT) Unknown Completed [facility] Human Rabies Vaccine From Chicken Fibroblast Culture (RABAVERT) Unknown Completed [facility] TD Pres-Free Unknown Completed [facility] SARS-COV-2 COVID-19 VACCINE - (MODERNA) Unknown Completed [facility] Human Rabies Vaccine From Chicken Fibroblast Culture (RABAVERT) Unknown Completed [facility] Human Rabies Vaccine From Chicken Fibroblast Culture (RABAVERT) Unknown Completed [facility] TD Pres-Free Unknown Completed [facility] SARS-COV-2 COVID-19 VACCINE - (MODERNA) Unknown Completed [facility] Human Rabies Vaccine From Chicken Fibroblast Culture (RABAVERT) Unknown Completed [facility] Human Rabies Vaccine From Chicken Fibroblast Culture (RABAVERT) Unknown Completed [facility] TD Pres-Free Unknown Completed [facility] SARS-COV-2 COVID-19 VACCINE - (MODERNA) Unknown Completed [facility] Human Rabies Vaccine From Chicken Fibroblast Culture (RABAVERT) Unknown Completed [facility] Vital Signs Vital Name Observation Time Observation Value Comments S ource Systolic blood pressure 2023-10-01 20:58:00 144 mm[Hg] [facility] Diastolic blood pressure 2023-10-01 20:58:00 89 mm[Hg] [facility] Heart rate 2023-10-01 20:58:00 84 /min Shahzade [facility] Body temperature 2023-10-01 20:58:00 36.72 Shivani [facility] Respiratory rate 2023-10-01 20:58:00 14 /min [facility] Body height 2023-10-01 20:58:00 182.9 cm [facility] 2023-10-01 20:58:[address] [facility] BMI 2023-10-01 20:58:00 36.62 kg/m2 [facility] Oxygen saturation in Arterial blood by Pulse oximetry 2023-10-01 20:58:00 99 /min [facility] Systolic blood pressure 2023-10-01 18:36:00 120 mm[Hg] Joseline Seybo ld - External Diastolic blood pressure 2023-10-01 18:36:00 76 mm[Hg] Joseline Seybo ld - External Heart rate 2023-10-01 18:36:00 87 /min Kel y Seybold - External Body temperature 2023-10-01 18:36:00 36.22 Shivani Joseline Seybold - External Respiratory rate 2023-10-01 18:36:00 15 /min Joseline Seybold - External Body height 2023-10-01 18:36:00 182.9 cm Melly ey Seybold - External Body weight 2023-10-01 18:36:00 123.378 kg Melly ey Seybold - External BMI 2023-10-01 18:36:00 36.89 kg/m2 Melly ey Seybold - External Systolic blood pressure 2023-08-12 16:37:00 125 mm[Hg] [facility] Diastolic blood pressure 2023-08-12 16:37:00 92 mm[Hg] [facility] Heart rate 2023-08-12 16:37:00 93 /min [facility] 2023-08-12 16:37:00 37 Shivani [facility] Respiratory rate 2023-08-12 16:37:00 18 /min [facility] Body height 2023-08-12 16:37:[address] [facility] Body weight 2023-08-12 16:37:[address] [facility] BMI 2023-08-12 16:37:00 36.62 kg/m2 [facility] Oxygen saturation in Arterial blood by Pulse oximetry 2023-08-12 16:37:00 96 /min [facility] Systolic blood pressure 2023-07-12 16:23:00 109 mm[Hg] [facility] Diastolic blood pressure 2023-07-12 16:23:00 74 mm[Hg] [facility] Heart rate 2023-07-12 16:23:00 61 /min Unive [facility] Body temperature 2023-07-12 16:23:00 36.78 Shivani [facility] Respiratory rate 2023-07-12 16:23:00 12 /min [facility] Body weight 2023-07-12 16:23:[address] [facility] BMI 2023-07-12 16:23:00 36.75 kg/m2 [facility] Oxygen saturation in Arterial blood by Pulse oximetry 2023-07-12 16:23:00 97 /min [facility] Systolic blood pressure 2023-07-05 17:17:00 135 mm[Hg] [facility] Diastolic blood pressure 2023-07-05 17:17:00 82 mm[Hg] [facility] Heart rate 2023-07-05 17:17:00 80 /min [facility] Body temperature 2023-07-05 17:17:00 36.56 Shivani [facility] Respiratory rate 2023-07-05 17:17:00 18 /min [facility] Oxygen saturation in Arterial blood by Pulse oximetry 2023-07-05 17:17:00 100 /min [facility] Systolic blood pressure 2023-07-01 23:15:00 130 mm[Hg] [facility] Diastolic blood pressure 2023-07-01 23:15:00 87 mm[Hg] [facility] Heart rate 2023-07-01 23:15:00 83 /min [facility] Body temperature 2023-07-01 23:15:00 37.33 Shivani [facility] Respiratory rate 2023-07-01 23:15:00 14 /min [facility] Body height 2023-07-01 23:15:00 182.9 cm [facility] Body weight 2023-07-01 23:15:00 123.832 kg [facility] BMI 2023-07-01 23:15:00 37.03 kg/m2 [facility] Oxygen saturation in Arterial blood by Pulse oximetry 2023-07-01 23:15:00 97 /min [facility] Systolic blood pressure 2023-06-29 00:34:00 124 mm[Hg] [facility] Diastolic blood pressure 2023-06-29 00:34:00 85 mm[Hg] [facility] Heart rate 2023-06-29 00:34:00 74 /min [facility] Body temperature 2023-06-29 00:34:00 37.06 Shivani [facility] Oxygen saturation in Arterial blood by Pulse oximetry 2023-06-29 00:34:00 96 /min [facility] Respiratory rate 2023-06-28 23:48:00 14 /min [facility] Body weight 2023-06-28 22:32:[address] [facility] BMI 2023-06-28 22:32:00 37.07 kg/m2 [facility] Body height 2023-06-28 21:46:[address] [facility] Systolic blood pressure 2023-05-31 22:04:00 145 mm[Hg] [facility] Diastolic blood pressure 2023-05-31 22:04:00 85 mm[Hg] [facility] Heart rate 2023-05-31 22:04:00 84 /min [facility] 2023-05-31 22:04:00 36.61 Shivani [facility] Respiratory rate 2023-05-31 22:04:00 16 /min [facility] Body height 2023-05-31 22:04:00 182.9 cm [facility] Body weight 2023-05-31 22:04:00 123.832 kg [facility] BMI 2023-05-31 22:04:00 37.03 kg/m2 [facility] Oxygen saturation in Arterial blood by Pulse oximetry 2023-05-31 22:04:00 99 /min [facility] Systolic blood pressure 2023-05-23 14:15:00 126 mm[Hg] Joseline Kohlio ld - External Diastolic blood pressure 2023-05-23 14:15:00 80 mm[Hg] Joseline Kohlio ld - External Heart rate 2023-05-23 14:15:00 91 /min Chelsie y ybold - External Body temperature 2023-05-23 14:15:00 36.61 Shivani Joseline Millsybold - External Respiratory rate 2023-05-23 14:15:00 16 /min Joseline Kohliold - External Body height 2023-05-23 14:15:00 182.9 cm Melly quinonez Seybold - External Body weight 2023-05-23 14:15:00 123.832 kg Melly quinonez Seybold - External BMI 2023-05-23 14:15:00 37.03 kg/m2 Melly quinonez Seybold - External Systolic blood pressure 2023-03-18 18:37:00 116 mm[Hg] [facility] Diastolic blood pressure 2023-03-18 18:37:00 80 mm[Hg] [facility] Heart rate 2023-03-18 18:37:00 87 /min [facility] Body temperature 2023-03-18 18:37:00 36.83 Shivani [facility] Respiratory rate 2023-03-18 18:37:00 18 /min [facility] Body weight 2023-03-18 18:37:[address] [facility] BMI 2023-03-18 18:37:00 35.94 kg/m2 [facility] Oxygen saturation in Arterial blood by Pulse oximetry 2023-03-18 18:37:00 99 /min [facility] Systolic blood pressure 2023-03-01 01:45:00 141 mm[Hg] [facility] Diastolic blood pressure 2023-03-01 01:45:00 86 mm[Hg] [facility] Heart rate 2023-03-01 01:45:00 92 /min [facility] Body temperature 2023-03-01 01:45:00 37.28 Shivani [facility] Respiratory rate 2023-03-01 01:45:00 16 /min [facility] Body height 2023-03-01 01:45:[address] [facility] Body weight 2023-03-01 01:45:[address] [facility] BMI 2023-03-01 01:45:00 35.94 kg/m2 [facility] Oxygen saturation in Arterial blood by Pulse oximetry 2023-03-01 01:45:00 100 /min [facility] Systolic blood pressure 2023-01-25 10:30:00 127 mm[Hg] [facility] Diastolic blood pressure 2023-01-25 10:30:00 84 mm[Hg] [facility] Heart rate 2023-01-25 10:30:00 77 /min Unive [facility] Body temperature 2023-01-25 10:30:00 36.67 Shivani [facility] Respiratory rate 2023-01-25 10:30:00 18 /min [facility] Body height 2023-01-25 10:30:[address] [facility] Body weight 2023-01-25 10:30:[address] [facility] BMI 2023-01-25 10:30:00 35.94 kg/m2 [facility] Oxygen saturation in Arterial blood by Pulse oximetry 2023-01-25 10:30:00 99 /min [facility] Systolic blood pressure 2023-01-11 06:54:00 120 mm[Hg] [facility] Diastolic blood pressure 2023-01-11 06:54:00 69 mm[Hg] [facility] Heart rate 2023-01-11 06:54:00 61 /min Unive [facility] Body temperature 2023-01-11 06:54:00 36.33 Shivani [facility] Oxygen saturation in Arterial blood by Pulse oximetry 2023-01-11 06:54:00 98 /min [facility] Respiratory rate 2023-01-11 03:19:00 18 /min [facility] Body height 2023-01-11 03:19:00 182.9 cm [facility] Body weight 2023-01-11 03:19:[address] [facility] BMI 2023-01-11 03:19:00 36.62 kg/m2 [facility] Systolic blood pressure 2022-12-02 13:34:00 126 mm[Hg] [facility] Diastolic blood pressure 2022-12-02 13:34:00 90 mm[Hg] [facility] Heart rate 2022-12-02 13:34:00 77 /min [facility] temperature 2022-12-02 13:34:00 37 Shivani [facility] Respiratory rate 2022-12-02 13:34:00 18 /min [facility] Body height 2022-12-02 13:34:00 182.9 cm [facility] Body weight 2022-12-02 13:34:[address] [facility] BMI 2022-12-02 13:34:00 35.94 kg/m2 [facility] Oxygen saturation in Arterial blood by Pulse oximetry 2022-12-02 13:34:00 100 /min [facility] Body height 2022-11-20 20:00:[address] [facility] Systolic blood pressure 2022-11-20 16:50:00 124 mm[Hg] [facility] Diastolic blood pressure 2022-11-20 16:50:00 83 mm[Hg] [facility] Heart rate 2022-11-20 16:50:00 61 /min Unive [facility] Body temperature 2022-11-20 16:50:00 36.61 Shivani [facility] Respiratory rate 2022-11-20 16:50:00 20 /min [facility] Oxygen saturation in Arterial blood by Pulse oximetry 2022-11-20 16:50:00 98 /min [facility] Body weight 2022-11-20 01:00:[address] [facility] BMI 2022-11-20 01:00:00 36.48 kg/m2 [facility] Systolic blood pressure 2022-09-28 14:31:00 136 mm[Hg] [facility] Diastolic blood pressure 2022-09-28 14:31:00 97 mm[Hg] [facility] Heart rate 2022-09-28 14:31:00 76 /min Unive [facility] Body temperature 2022-09-28 14:31:00 36.67 Shivani [facility] Respiratory rate 2022-09-28 14:31:00 18 /min [facility] Body height 2022-09-28 14:31:[address] [facility] Body weight 2022-09-28 14:31:[address] [facility] BMI 2022-09-28 14:31:00 36.48 kg/m2 [facility] Oxygen saturation in Arterial blood by Pulse oximetry 2022-09-28 14:31:00 98 /min [facility] Systolic blood pressure 2022-09-25 14:52:21 125 mm[Hg] [facility] Diastolic blood pressure 2022-09-25 14:52:21 88 mm[Hg] [facility] Heart rate 2022-09-25 14:52:21 72 /min [facility] Body temperature 2022-09-25 14:52:21 36.83 Shivani [facility] Respiratory rate 2022-09-25 14:52:21 16 /min [facility] Oxygen saturation in Arterial blood by Pulse oximetry 2022-09-25 14:52:21 96 /min [facility] Body height 2022-09-25 12:10:[address] [facility] Body weight 2022-09-25 12:10:[address] [facility] BMI 2022-09-25 12:10:00 36.48 kg/m2 [facility] Systolic blood pressure 2022-09-06 18:47:00 124 mm[Hg] Joseline Knowles ld - External Diastolic blood pressure 2022-09-06 18:47:00 64 mm[Hg] Joseline Millsybo ld - External Heart rate 2022-09-06 18:47:00 78 /min Sbse y Seybold - External Body temperature 2022-09-06 18:47:00 36.11 Shivani Joseline Millsybold - External Respiratory rate 2022-09-06 18:47:00 16 /min Joseline Millsybold - External Body height 2022-09-06 18:47:00 182.9 cm Melly ey Seybold - External Body weight 2022-09-06 18:47:00 122.653 kg Melly ey Seybold - External BMI 2022-09-06 18:47:00 36.67 kg/m2 Melly quinonez Seybold - External Oxygen saturation in Arterial blood by Pulse oximetry 2022-09-06 18:47:00 97 /min Joseline Millsybo ld - External Heart rate 2022-08-04 01:30:00 89 /min [facility] Body temperature 2022-08-04 01:30:00 37.11 Shivani [facility] Respiratory rate 2022-08-04 01:30:00 18 /min [facility] Body height 2022-08-04 01:30:[address] [facility] Body weight 2022-08-04 01:30:[address] [facility] BMI 2022-08-04 01:30:00 34.70 kg/m2 [facility] Oxygen saturation in Arterial blood by Pulse oximetry 2022-08-04 01:30:00 100 /min [facility] Systolic blood pressure 2022-08-04 01:30:00 146 mm[Hg] [facility] Diastolic blood pressure 2022-08-04 01:30:00 105 mm[Hg] [facility] Systolic blood pressure 2022-07-12 18:18:00 118 mm[Hg] Joseline Millsybo ld - External Diastolic blood pressure 2022-07-12 [...] blood pressure 2022-03-04 21:25:00 84 mm[Hg] Joseline Millsybo ld - External Heart rate 2022-03-04 21:25:00 102 /min Kel y Seybold - External Body temperature 2022-03-04 21:25:00 36.89 Shivani Joseline Seybold - External Respiratory rate 2022-03-04 21:25:00 16 /min Joseline Millsybold - External Body height 2022-03-04 21:25:00 182.9 cm Melly ey Seybold - External Body weight 2022-03-04 21:25:00 106.595 kg Melly ey Seybold - External BMI 2022-03-04 21:25:00 31.87 kg/m2 Melly ey Seybold - External Systolic blood pressure 2022-02-28 20:48:00 139 mm[Hg] [facility] Diastolic blood pressure 2022-02-28 20:48:00 92 mm[Hg] [facility] Heart rate 2022-02-28 20:48:00 78 /min [facility] Body temperature 2022-02-28 20:48:00 36.89 Shivani [facility] Respiratory rate 2022-02-28 20:48:00 22 /min [facility] Body height 2022-02-28 20:48:[address] [facility] Body weight 2022-02-28 20:48:[address] [facility] BMI 2022-02-28 20:48:00 31.87 kg/m2 [facility] Oxygen saturation in Arterial blood by Pulse oximetry 2022-02-28 20:48:00 99 /min [facility] Systolic blood pressure 2022-02-13 17:19:00 146 mm[Hg] [facility] Diastolic blood pressure 2022-02-13 17:19:00 85 mm[Hg] [facility] Heart rate 2022-02-13 17:19:00 90 /min Unive [facility] Body temperature 2022-02-13 17:19:00 36.61 Shivani [facility] Respiratory rate 2022-02-13 17:19:00 16 /min [facility] Body height 2022-02-13 17:19:[address] [facility] Body weight 2022-02-13 17:19:[address] [facility] BMI 2022-02-13 17:19:00 31.87 kg/m2 [facility] Oxygen saturation in Arterial blood by Pulse oximetry 2022-02-13 17:19:00 100 /min [facility] Systolic blood pressure 2021-04-18 20:00:00 119 mm[Hg] [facility] Diastolic blood pressure 2021-04-18 20:00:00 72 mm[Hg] [facility] Heart rate 2021-04-18 20:00:00 72 /min [facility] Respiratory rate 2021-04-18 20:00:00 21 /min [facility] Oxygen saturation in Arterial blood by Pulse oximetry 2021-04-18 20:00:00 97 /min [facility] Body temperature 2021-04-18 16:29:00 36.44 Shivani [facility] Body height 2021-04-18 16:29:[address] [facility] Body weight 2021-04-18 16:29:[address] [facility] BMI 2021-04-18 16:29:00 32.28 kg/m2 [facility] Body height 2021-03-15 21:05:00 182.9 cm Melly Bean Body weight 2021-03-15 21:05:00 104.327 kg Melly Bean BMI 2021-03-15 21:05:00 31.19 kg/m2 Melly Bean Systolic blood pressure 2021-03-15 20:55:00 118 mm[Hg] Joseline Seybo ld Diastolic blood pressure 2021-03-15 20:55:00 78 mm[Hg] Joseline ybo ld Heart rate 2021-03-15 20:55:00 108 /min Kelse y [place] Body temperature 2021-03-15 20:55:00 36.72 Shivani Joseline Bean Oxygen saturation in Arterial blood by Pulse oximetry 2021-03-15 20:55:00 98 /min Joseline Kohlio mahendra Procedures Procedure Date / Time Performed Performing Clinician Source RABIES VACCINE, IM 2023-07-12 16:29:39 Doctor Un assigned, [place] [facility] RABIES VACCINE, IM 2023-07-01 23:31:31 [facility] RIGHT 2023-05-31 22:39:24 Aimee Dickey [facility] ASSIGNMENT OF BENEFITS 2023-03-18 19:32:42 Docto r Unassigned, [place] [facility] CONSENT/REFUSAL FOR DIAGNOSIS AND TREATMENT 2023-03-18 18:28:03 Doctor Unassigned, [place] [facility] RAPID STREP SCREEN FOR GROUP A 2023-03-01 01:55:00 Linda Sanford [facility] RAPID INFLUENZA A/B 2023-03-01 01:55:00 Linda Sanford [facility] COVID-19 (ID NOW RAPID TESTING) 2023-03-01 01:55:00 Linda Sanford [facility] CONSENT/REFUSAL FOR DIAGNOSIS AND TREATMENT 2023-03-01 01:37:40 Doctor Unassigned, [place] [facility] RAPID STREP SCREEN FOR GROUP A 2023-01-25 10:33:00 Shae Gillespie [facility] CONSENT/REFUSAL FOR DIAGNOSIS AND TREATMENT 2023-01-25 10:18:08 Doctor Unassigned, [place] [facility] US TESTICULAR TORSION 2023-01-11 06:06:00 Joey Shultz [facility] URINALYSIS 2023-01-11 04:00:[address] [facility] CONSENT/REFUSAL FOR DIAGNOSIS AND TREATMENT 2023-01-11 03:07:43 Doctor Unassigned, [place] [facility] INSURANCE CORRESPONDENCE 2022-12-10 05:01:00 Doc tor Unassigned, [place] [facility] REFERRAL- REQUEST/RESPONSE 2022-12-09 05:01:00 Doctor Unassigned, [place] [facility] CONSENT/REFUSAL FOR DIAGNOSIS AND TREATMENT 2022-12-02 13:22:20 Doctor Unassigned, [place] [facility] TRANSTHORACIC ECHO (TTE) COMPLETE W/ CONTRAST 2022-11-20 16:09:18 Jus Melendezmad [facility] TROPONIN I 2022-11-20 13:52:00 Chanel Melendez brutusverónica [facility] C-REACTIVE PROTEIN 2022-11-20 07:13:00 Al Tate [facility] TROPONIN I 2022-11-20 07:13:00 Al [facility] LIPID PANEL (75779)(TOTAL CHOLESTEROL, TRIGLYCERIDES, HDL) 2022-11-20 07:13:00 Lea Melendez [facility] FERRITIN SERUM 2022-11-20 02:14:00 [facility] TROPONIN I 2022-11-20 02:14:00 Al [facility] keyasd[facility] FREE T4 2022-11-20 02:14:00 [facility] THYROID STIMULATING HORMONE 2022-11-20 02:14:00 Al Tate [facility] HEPATIC FUNCTION PANEL ([id number]) (ALB,T.PRO,BILI T,BU/BC,ALT,AST,ALK PHOS) 2022-11-20 02:14:00 Lea Melendez [facility] BASIC METABOLIC PANEL (NA, K, CL, CO2, GLUCOSE, BUN, CREATININE, CA) 2022-11-20 02:14:00 Lea Melendez Joseph [facility] IRON PANEL 2022-11-20 02:14:00 Chanel Melendez brutusverónica [facility] SEDIMENTATION RATE 2022-11-20 02:14:00 Tobias Melendezhammad [facility] CBC WITH DIFF 2022-11-20 02:14:00 Chanel Melendez brutusverónica [facility] GLYCOSYLATED HEMOGLOBIN (A1C) 2022-11-20 02:14:00 Al [facility] N-TERMINAL PRO-BNP 2022-11-20 02:14:00 Al Tate [facility] XR CHEST 1 VW 2022-11-20 02:08:59 Al [facility] EXTRA TUBE LT. GREEN 2022-11-20 02:05:00 Wilfredo Braswell [facility] INSURANCE CORRESPONDENCE 2022-11-02 05:01:00 Doc tor Unassigned, [place] [facility] US TESTICULAR TORSION 2022-09-28 15:35:02 Joey Shultz [facility] URINALYSIS 2022-09-28 14:52:[address] [facility] CONSENT/REFUSAL FOR DIAGNOSIS AND TREATMENT 2022-09-28 14:27:23 Doctor Unassigned, [place] [facility] LIPASE 2022-09-25 12:43:00 Maral Gamble [facility] COMP. METABOLIC PANEL (01116) 2022-09-25 12:43:00 Maral Gamble [facility] CBC WITH DIFF 2022-09-25 12:43:[address] [facility] CONSENT/REFUSAL FOR DIAGNOSIS AND TREATMENT 2022-09-25 12:03:13 Doctor Unassigned, [place] [facility] URINALYSIS 2022-08-04 01:52:00 Kain Rajput [facility] NOTICE OF PRIVACY PRACTICES 2022-08-04 01:24:37 Doctor Unassigned, [place] [facility] CONSENT/REFUSAL FOR DIAGNOSIS AND TREATMENT 2022-08-04 01:24:12 Doctor Unassigned, [place] [facility] CONSENT/REFUSAL FOR DIAGNOSIS AND TREATMENT 2022-02-28 20:35:39 Doctor Unassigned, [place] [facility] RAPID STREP SCREEN FOR GROUP A 2022-02-13 18:03:00 Hardy Zavala [facility] RAPID INFLUENZA A/B 2022-02-13 18:03:00 Dinesh Zavala [facility] COVID-19 (ID NOW RAPID TESTING) 2022-02-13 18:03:00 Hardy Zavala [facility] CONSENT/REFUSAL FOR DIAGNOSIS AND TREATMENT 2022-02-13 17:16:02 Doctor Unassigned, [place] [facility] CT ABDOMEN PELVIS W CONTRAST 2021-04-18 18:02:33 Kayla Livingston [facility] LIPASE 2021-04-18 17:19:00 Kayla Livingston [facility] MAGNESIUM 2021-04-18 17:19:00 Kayla Livingston [facility] COMP. METABOLIC PANEL ([id number]) 2021-04-18 17:19:00 Kayla Livingston [facility] CBC WITH DIFF 2021-04-18 17:19:00 [facility] 2021-04-18 17:19:00 Kayla Livingston [facility] NOTICE OF PRIVACY PRACTICES 2021-04-18 16:02:42 Doctor Unassigned, [place] [facility] Encounters Start Date/Time End Date/Time Encounter Type Admission Type Attending [facility] Care Facility Care Department Encounter ID Source 2024-02-29 00:00:00 2024-02-29 00:00:00 Outpatient PIPPA REYNOSO [id number] Joseline Seybcami 2024-02-20 00:00:00 2024-02-20 00:00:00 Outpatient ROSY JOSELINE GOLDBERG [id number] Joseline Seybcami 2024-02-19 00:00:00 2024-02-19 00:00:00 Outpatient ROSY JOSELINE GOLDBERG [id number] [facility] 2024-01-28 00:00:00 2024-01-28 00:00:00 Outpatient SAVANAHDarling PIPPA JOSELINE GOLDBERG [id number] [facility] 2024-01-19 00:00:00 2024-01-19 00:00:00 Outpatient EDGARDO PIPPA GOLDBERG [id number] [facility] 2023-12-19 00:00:00 2023-12-19 00:00:00 Outpatient JOSELINE GOLDBERG [id number] [facility] 2023-12-10 09:00:00 2023-12-10 09:00:00 Outpatient MELIZA BENNETT [id number] [facility] 2023-11-30 00:00:00 2023-11-30 00:00:00 Outpatient EDGARDO PIPPA JOSELINE GOLDBERG [id number] [facility] 2023-10-24 00:00:00 2023-10-24 00:00:00 Outpatient JOSELINE GOLDBERG [id number] [facility] 2023-10-23 13:50:00 2023-10-23 13:50:00 Outpatient LAB90 JOSELINE GOLDBERG [id number] [facility] 2023-10-23 00:00:00 2023-10-23 00:00:00 Outpatient PIPPA REYNOSO [id number] Joseline Seybold 2023-10-17 00:00:00 2023-10-17 00:00:00 Outpatient MD JOSELINE MATHIAS [id number] Joseline Seybcami 2023-10-17 00:00:00 2023-10-17 00:00:00 Outpatient MD JOSELINE MATHIAS [id number] Joseline Seybcami 2023-10-15 00:00:00 2023-10-15 00:00:00 Outpatient JOHN YIN JOSELINE GOLDBERG [id number] Joseline [facility] 2023-10-06 00:00:00 2023-10-06 00:00:00 Outpatient JOSELINE GOLDBERG [id number] Joseline [facility] 2023-10-03 00:00:00 2023-10-03 00:00:00 Outpatient JOSELINE GOLDBERG [id number] Joseline [facility] 2023-10-02 00:00:00 2023-10-02 00:00:00 Outpatient EDGARDO PIPPA GOLDBERG [id number] [facility] 2023-10-01 15:59:00 2023-10-01 17:11:00 Emergency JULIANA BARRY TIMOTHY [facility] [id number] [facility] 2023-10-01 15:59:00 2023-10-01 17:11:00 Emergency Juliana Baird AT [facility] [id number] [facility] 2023-10-01 14:45:00 2023-10-01 14:45:00 Outpatient LAB90 JOSELINE GOLDBERG [id number] Joseline [facility] 2023-10-01 14:00:00 2023-10-01 14:00:00 Outpatient EDGARDO PIPPA GOLDBERG [id number] Joseline [facility] 2023-10-01 00:00:00 2023-10-01 00:00:00 Outpatient CECILIORADHA SALVADOR JOSELINE GOLDBERG [id number] [facility] 2023-10-01 00:00:00 2023-10-01 00:00:00 Outpatient JOSELINE GOLDBERG [id number] [facility] 2023-09-02 00:00:00 2023-09-02 00:00:00 Outpatient EDGARDO PIPPA GOLDBERG [id number] Joseline [facility] 2023-08-12 11:39:00 2023-08-12 12:41:00 Emergency X JAYESWILLIAN JULIO [facility] ERT [id number] [facility] 2023-08-12 11:39:00 2023-08-12 12:41:00 Emergency Magdaleno Perezio C [facility] [id number] [facility] 2023-07-12 11:15:00 2023-07-12 11:40:51 Outpatient R LEEANN MCCOY [facility] [id number] [facility] 2023-07-12 11:15:00 2023-07-12 11:35:00 [facility] Michaelvin [facility] [id number] [facility] 2023-07-05 12:00:00 2023-07-05 12:57:22 Outpatient R MICHAELLEEANN JEFFERY [facility] [id number] [facility] 2023-07-05 12:00:00 2023-07-05 12:20:00 Nurse Visit [facility] Unknown, Attending [facility] [id number] [facility] 2023-07-01 18:00:00 2023-07-01 18:54:27 Outpatient R NO NUR [facility] [id number] [facility] 2023-07-01 18:00:00 2023-07-01 18:20:00 Urgent Care No Nur Unknown, Attending [facility] [id number] [facility] 2023-06-28 16:49:00 2023-06-28 20:22:00 Emergency X YARA Kayla [facility] ERT [id number] [facility] 2023-06-28 16:49:00 2023-06-28 20:22:00 Emergency Darryl Owens YaraKayla Asiya [facility] 1.2.840.114 350.1.13.10 4.2.7.2.686 [id number] [facility] 2023-06-23 00:00:00 2023-06-23 00:00:00 Outpatient JOSELINE GOLDBERG [id number] [facility] 2023-06-23 00:00:00 2023-06-23 00:00:00 Outpatient JOSELINE GOLDBERG [id number] [facility] 2023-06-16 00:00:00 2023-06-16 00:00:00 Outpatient PIPPA REYNOSO [id number] [facility] 2023-06-15 00:00:00 2023-06-15 00:00:00 Outpatient PIPPA REYNOSO [id number] [facility] 2023-06-13 13:45:00 2023-06-13 13:45:00 Outpatient JENY HAIDER [id number] [facility] 2023-06-05 00:00:00 2023-06-05 00:00:00 Outpatient JENY HAIDER [id number] [facility] 2023-06-02 00:00:00 2023-06-02 00:00:00 Outpatient PIPPA REYNOSO [id number] [facility] 2023-06-02 00:00:00 2023-06-02 00:00:00 Outpatient JOSELINE GOLDBERG [id number] [facility] 2023-06-02 00:00:00 2023-06-02 00:00:00 Outpatient PIPPA REYNOSO [id number] [facility] 2023-05-31 17:06:00 2023-05-31 18:29:00 Emergency X INDIA DICKEY [facility] ERT [id number] [facility] 2023-05-31 17:06:00 2023-05-31 18:29:00 Emergency India Dickey [facility] 1.2.840.114 350.1.13.10 4.2.7.2.686 [id number] [facility] 2023-05-28 00:00:00 2023-05-28 00:00:00 Outpatient EDGARDO PIPPA GOLDBERG [id number] [facility] 2023-05-28 00:00:00 2023-05-28 00:00:00 Outpatient EDGARDO PIPPA GOLDBERG [id number] [facility] 2023-05-28 00:00:00 2023-05-28 00:00:00 Outpatient PIPPA REYNOSO [id number] [facility] 2023-05-23 09:30:00 2023-05-23 09:30:00 Outpatient EDGARDO PIPPA GOLDBERG [id number] [facility] 2023-05-23 00:00:00 2023-05-23 00:00:00 Outpatient EDGARDO PIPPA GOLDBERG [id number] [facility] 2023-03-25 00:00:00 2023-03-25 00:00:00 Outpatient GISELLA LIND [id number] [facility] 2023-03-25 00:00:00 2023-03-25 00:00:00 Outpatient GISELLA LIND [id number] [facility] 2023-03-25 00:00:00 2023-03-25 00:00:00 Outpatient JOSELINE GOLDBERG [id number] [facility] 2023-03-19 00:00:00 2023-03-19 00:00:00 Outpatient GISELLA LIND [id number] [facility] 2023-03-18 12:37:00 2023-03-18 13:38:00 Emergency X BANDAR RICHARDSON [facility] ERT [id number] [facility] 2023-03-18 12:37:00 2023-03-18 13:38:00 Emergency Bandar Richardson [facility] 1.2.840.114 350.1.13.10 4.2.7.2.686 [id number] [facility] 2023-02-28 19:47:00 2023-02-28 21:02:00 Emergency X LINDA SANFORD [facility] ERT [id number] [facility] 2023-02-28 19:47:00 2023-02-28 21:02:00 Emergency Linda Sanford [facility] 1.2.840.114 350.1.13.10 4.2.7.2.686 [id number] [facility] 2023-02-13 00:00:00 2023-02-13 00:00:00 Outpatient JOSELINE GOLDBERG [id number] [facility]eline Bean 2023-01-25 04:35:00 2023-01-25 06:05:00 Emergency X SHAE GILLESPIE [facility] ERT [id number] [facility] 2023-01-25 04:35:00 2023-01-25 06:05:00 Emergency Shae Gillespie [facility] 1.2.840.114 350.1.13.10 4.2.7.2.686 [id number] [id number] [facility] 2023-01-10 21:21:00 2023-01-11 01:38:00 Emergency X IVONNE SHULTZ [facility] ERT [id number] [facility] 2023-01-10 21:21:00 2023-01-11 01:38:00 Emergency Ivonne Shultz [facility] 1.2.840.114 350.1.13.10 4.2.7.2.686 [id number] [facility] 2022-12-25 09:15:00 2022-12-25 09:15:00 Outpatient KACIE QUIROZ JOSELINE GOLDBERG [id number] [facility] 2022-12-10 00:00:00 2022-12-10 00:00:00 Orders Only Doctor Unassigned, [place] [facility] 1.2.840.114 350.1.13.10 4.2.7.2.686 [id number] [facility] 2022-12-09 00:00:00 2022-12-09 00:00:00 Orders Only Doctor Unassigned, [place] [facility] 1.2.840.114 350.1.13.10 4.2.7.2.686 [id number] [facility] 2022-12-04 00:00:00 2022-12-04 00:00:00 Outpatient JOSELINE GOLDBERG [id number] [facility] 2022-12-03 00:00:00 2022-12-03 00:00:00 Outpatient GISELLA LIND [id number] [facility] 2022-12-02 08:34:00 2022-12-02 10:08:00 Emergency X Kayla LIVINGSTON [facility] ERT [id number] [facility] 2022-12-02 08:34:00 2022-12-02 10:08:00 Emergency Kayla Livingston [facility] 1.2.840.114 350.1.13.10 4.2.7.2.686 [id number] [facility] 2022-11-23 00:00:00 2022-11-23 00:00:00 Outpatient PIPPA REYNOSO [id number] [facility] 2022-11-21 00:00:00 2022-11-21 00:00:00 Outpatient JOSELINE GOLDBERG [id number] [facility]eline Bean 2022-11-19 19:34:00 2022-11-20 16:45:00 Outpatient X H[facility]DEN [facility] [id number] [facility] 2022-11-19 19:34:00 2022-11-20 16:45:00 Hospital Encounter Jose Guadalupe Meraz [facility] 1.2.840.114 350.1.13.10 4.2.7.2.686 [id number] [facility] 2022-11-20 13:00:00 2022-11-20 13:00:00 Outpatient GABRIELLA, KACIESonia GOLDBERG [id number] [facility] 2022-11-19 11:30:00 2022-11-19 11:30:00 Outpatient CECIL CHATMAN [id number] [facility] 2022-11-19 00:00:00 2022-11-19 00:00:00 Outpatient PIPPA REYNOSO [id number] [facility] 2022-11-02 00:00:00 2022-11-02 00:00:00 Outpatient JOSELINE GOLDBERG [id number] [facility] 2022-11-02 00:00:00 2022-11-02 00:00:00 Orders Only Doctor Unassigned, [place] [facility] 1.2.840.114 350.1.13.10 4.2.7.2.686 [id number] [facility] 2022-11-01 00:00:00 2022-11-01 00:00:00 Outpatient JOSELINE GOLDBERG [id number] [facility] 2022-10-22 00:00:00 2022-10-22 00:00:00 Outpatient PIPPA REYNOSO [id number] [facility]22-10-[facility] 00:00:00 2022-10-22 00:00:00 Outpatient JOSELINE GOLDBERG [id number] [facility] 2022-10-18 00:00:00 2022-10-18 00:00:00 Outpatient JOSELINE GOLDBERG [id number] [facility] 2022-10-16 00:00:00 2022-10-16 00:00:00 Outpatient PIPPA REYNOSO JOSELINE [id number] [facility]eline [facility] 2022-10-15 00:00:00 2022-10-15 00:00:00 Outpatient JOHN YIN JOSELINE [id number] [facility] 2022-10-15 00:00:00 2022-10-15 00:00:00 Outpatient JOHN YIN JOSELINE [id number] [facility] 2022-10-11 08:00:00 2022-10-11 08:00:00 Outpatient LAB90 JOSELINE JOSELINE [id number] Joseline Bean 2022-10-11 00:00:00 2022-10-11 00:00:00 Outpatient PIPPA REYNOSO JOSELINE GOLDBERG [id number] [facility]eline Bean 2022-10-08 00:00:00 2022-10-08 00:00:00 Outpatient PIPPA REYNOSO JOSELINE GOLDBERG [id number] [facility] 2022-10-07 00:00:00 2022-10-07 00:00:00 Outpatient JOSELINE JOSELINE [id number] Joseline [facility] 2022-10-07 00:00:00 2022-10-07 00:00:00 Outpatient JOSELINE JOSELINE [id number] [facility] 2022-10-02 00:00:00 2022-10-02 00:00:00 Outpatient PIPPA REYNOSO JOSELINE GOLDBERG [id number] [facility]eline [facility] 2022-09-28 09:34:00 2022-09-28 11:04:00 Emergency X IVONNE SHULTZ [facility] ERT [id number] [facility] 2022-09-28 09:34:00 2022-09-28 11:04:00 Emergency Ivonne Shultz G [facility] 1.2.840.114 350.1.13.10 4.2.7.2.686 [id number] [facility] 2022-09-28 00:00:00 2022-09-28 00:00:00 Outpatient HUNDPIPPA Trejo JOSELINE GOLDBERG [id number] [facility] 2022-09-25 07:15:00 2022-09-25 09:59:00 Emergency X MARAL GAMBLE [facility] ERT [id number] [facility] 2022-09-25 07:15:00 2022-09-25 09:59:00 Emergency Maral Gamble [facility] 1.2.840.114 350.1.13.10 4.2.7.2.686 [id number] [facility] 2022-09-11 00:00:00 2022-09-11 00:00:00 Outpatient SAVANAHDarling PIPPA GOLDBERG [id number] [facility] 2022-09-06 14:45:00 2022-09-06 14:45:00 Outpatient LAB90 JOSELINE GOLDBERG [id number] [facility] 2022-09-06 14:00:00 2022-09-06 14:00:00 Outpatient EDGARDO PIPPA JOSELINE GOLDBERG [id number] [facility] 2022-09-06 00:00:00 2022-09-06 00:00:00 Outpatient JOSELINE GOLDBERG [id number] [facility] 2022-08-12 00:00:00 2022-08-12 00:00:00 Outpatient JOSHUAJOHN Davis JOSELINE GOLDBERG [id number] [facility] 2022-08-12 00:00:00 2022-08-12 00:00:00 Outpatient JOSELINE GOLDBERG [id number] [facility] 2022-08-03 20:31:00 2022-08-03 21:56:00 Emergency X KAIN RAJPUT [facility] ERT [id number] [facility] 2022-08-03 20:31:00 2022-08-03 21:56:00 Emergency Kain Rajput [facility] 1.2.840.114 350.1.13.10 4.2.7.2.686 [id number] [facility] 2022-07-19 11:30:00 2022-07-19 11:30:00 Outpatient JOHN YIN JOSELINE GOLDBERG [id number] [facility] 2022-07-12 14:00:00 2022-07-12 14:00:00 Outpatient GISELLA LIND JOSELINE GOLDBERG [id number] [facility] 2022-07-12 14:00:00 2022-07-12 14:00:00 Outpatient DIOGOGISELLA JOSELINE GOLDBERG [id number] [facility] 2022-07-10 00:00:00 2022-07-10 00:00:00 Outpatient JOHN YIN JOSELINE GOLDBERG [id number] [facility] 2022-06-28 00:00:00 2022-06-28 00:00:00 Outpatient DIOGO GISELLA [facility]DBERG [id number] [facility] 2022-06-28 00:00:00 2022-06-28 00:00:00 Outpatient DIOGOHARDEEPGERRY GOLDBERG [id number] [facility] 2022-03-04 15:30:00 2022-03-04 15:30:00 Outpatient DIOGOGISELLA JOSELINE GOLDBERG [id number] [facility] 2022-02-28 14:49:00 2022-02-28 15:41:00 Emergency X IGGY WELLER [facility] ERT [id number] [facility] 2022-02-28 14:49:00 2022-02-28 15:41:00 Emergency Iggy Weller [facility] 1.2.840.114 350.1.13.10 4.2.7.2.686 [id number] [facility] 2022-02-28 00:00:00 2022-02-28 00:00:00 Outpatient JOHN YIN JOSELINE GOLDBERG [id number] [facility] 2022-02-28 00:00:00 2022-02-28 00:00:00 Outpatient JOSELINE GOLDBERG [id number] [facility] 2022-02-22 15:15:00 2022-02-22 15:15:00 Outpatient MIHAI HAHN JOSELINE GOLDBERG [id number] [facility] 2022-02-13 11:20:00 2022-02-13 12:52:00 Emergency X SOTEROCASTROHARDY [facility] ERT [id number] [facility] 2022-02-13 11:20:00 2022-02-13 12:52:00 Emergency LynnTimurHardy A [facility] 1.2.840.114 350.1.13.10 4.2.7.2.686 [id number] [facility] 2022-02-13 00:00:00 2022-02-13 00:00:00 Outpatient GISELLA LIND [id number] [facility] 2022-02-13 00:00:00 2022-02-13 00:00:00 Orders Only Doctor Unassigned, [place] [facility] 1.2.840.114 350.1.13.10 4.2.7.2.686 [id number] [facility] 2021-11-05 00:00:00 2021-11-05 00:00:00 Outpatient GISELLA LIND [id number] [facility] 2021-08-31 03:15:00 2021-08-31 03:15:00 [facility] [id number] [facility] 2021-06-25 00:00:00 2021-06-25 00:00:00 Outpatient GISELLA LIND [id number] [facility] 2021-06-15 00:00:00 2021-06-15 00:00:00 Outpatient GISELLA LIND [id number] [facility] 2021-04-18 10:30:00 2021-04-18 14:28:00 Emergency X Kayla LIVINGSTON [facility] ERT [id number] [facility] 2021-04-18 10:30:00 2021-04-18 14:28:00 Emergency Kayla Livingston [facility] 1.2.840.114 350.1.13.10 4.2.7.2.686 [id number] [facility] 2021-04-18 00:00:00 2021-04-18 00:00:00 Outpatient GISELLA LIND [id number] [facility] 2021-03-28 00:00:00 2021-03-28 00:00:00 Outpatient GISELLA LIND [id number] [facility] 2021-03-28 00:00:00 2021-03-28 00:00:00 Outpatient JOSELINE GOLDBERG [id number] [facility] 2021-03-28 00:00:00 2021-03-28 00:00:00 Outpatient JOSELINE GOLDBERG [id number] [facility] 2021-03-16 10:20:00 2021-03-16 10:20:00 Outpatient LAB90 JOSELINE GOLDBERG [id number] [facility] 2021-03-16 09:35:00 2021-03-16 09:35:00 Outpatient LAB90 JOSELINE GOLDBERG [id number] [facility] 2021-03-15 15:15:00 2021-03-15 15:45:00 [facility] [place] 1.2.840.114 350.1.13.13 1.2.7.2.686 [id number] [facility] 2021-03-15 00:00:00 2021-03-15 00:00:00 Outpatient GISELLA LIND [id number] [facility] 2021-03-15 00:00:00 2021-03-15 00:00:00 Outpatient GISELLA LIND [id number] [facility] Results Test Description Test Time Test Comments Results Resul t Comments Source XR KNEE 3 VW RIGHT 2023-05-19 3 22:42:42 XR KNEE 3 VW RIGHT HISTORY: ?right knee pain COMPARISON: ?none available. Findings:The osseous structures are intact. Tricompartmental mild osteoarthrosis.Small knee joint effusion.Mild soft tissue edema. ?No abnormal soft tissue calcification. [facility], TXGLYCOSYLATED HEMOGLOBIN (A1C)2022-11-20 10:43:53* Test Item Value Reference Range Interpretation Comme nts HGB A1C (test code = 4548-4) 5.7 % 4.0-5.7 JAY (test code = JAY) Reference RangesNormal: <5.7%Prediabetes: 5.7 - 6.4%Diabetes: > 6.5% Lab Interpretation (test code = 25218-2) [facility] [id number] 06:15:25* Test Item Value Reference Range Interpretation Comme nts FERRITIN (test code = 5036100025) 36.6 ng/mL 18.0-464.0 JAY (test code = JAY) Biotin has been reported to cause a negative bias, interpret results relative to patient's use of biotin. Lab Interpretation (test code = 75736-2) Normal [facility]wood[facility] [id number] 05:48:00* Test Item Value Reference Range Interpretation Comme nts IRON (test code = 4428039703) 109 ug/dL 50-160 TIBC (test code = 4061791965) 387 ug/dL 250-410 % FE SAT (test code = 6526000890) 28 % 20-50 Lab Interpretation (test cod e = 30540-4) Normal [facility]woodFREE [id number] 05:10:55* Test Item Value Reference Range Interpretation Comme nts FREE T4 (test code = 6114379782) 1.12 See_Comment [Automated messa ge] The system which generated this result transmitted reference range: 0.78 - 2.20 ng/dL:. The reference range was not used to interpret this result as normal/abnormal. Lab Interpretation (test code = 49816-7) Normal [facility]woodSEDIMENTATION [id number] 04:03:25* Test Item Value Reference Range Interpretation Comme nts ESR (test code = 94920-4) 2 See_Comment [Automated message] The system which generated this result transmitted reference range: 2 - 30 mm/HR. The reference range was not used to interpret this result as normal/abnormal. Lab Interpretation (test code = 95467-3) Normal [facility]wood[facility]-TERMINAL [id number] 03:50:48* Test Item Value Reference Range Interpretation Comme nts NT-proBNP (test code = 69926-3) <=125 Lab Interpretation (test cod e = 69522-4) Normal [facility]woodTHYROID STIMULATING [id number] 03:15:04 * Test Item Value Reference Range Interpretation Comme nts TSH (test code = 7827532445) 8.65 See_Comment H [Automated messa ge] The system which generated this result transmitted reference range: 0.45 - 4.70 mIU/L. The reference range was not used to interpret this result as normal/abnormal. Lab Interpretation (test code = 47184-0) Abnormal [facility]woodTROPONIN [id number] 02:56:39* Test Item Value Reference Range Interpretation Comme nts TROPONIN I (test code = 3350940264) 0.002 ng/mL <=0.034 JAY (test code = [...] of biotin. Lab Interpretation (test code = 17030-8) Normal [facility]wood[facility] METABOLIC PANEL (NA, K, CL, CO2, GLUCOSE, BUN, CREATININE, CA)2022-11-20 02:40:39* Test Item Value Reference Range Interpretation Comme nts NA (test code = 7070203977) 135 mmol/L 135-145 K (test code = 3262600133) 4.1 mmol/L 3.5-5.0 CL (test code = 5042357789) 104 mmol/L 98-108 CO2 TOTAL (test code = 3015754644) 23 mmol/L 23-31 AGAP (test code = 3890753033) 8 2-16 BUN (test code = 2109879673) 14 mg/dL 7-23 GLUCOSE (test code = 6491481791) 100 mg/dL 70-110 CREATININE (test code = 7978795988) 0.67 mg/dL 0.60-1.25 CALCIUM (test code = 3246916428) 9.0 mg/dL 8.6-10.6 eGFR (test code = 3491676961) 139.3 mL/min/1.73m2 JAY (test code = JAY) [...] or urine or abnormalities in imaging tests). [facility]woodHEPATIC FUNCTION PANEL (03702) (ALB,T.PRO,BILI T,BU/BC,ALT,AST,ALK PHOS)2022-11-20 02:40:39* Test Item Value Reference Range Interpretation Comme nts TOTAL BILI (test code = 0890995565) 0.4 mg/dL 0.1-1.1 BILI UNCON (test code = 4265350072) 0.4 mg/dL 0.1-1.1 BILI CONJ (test code = 3996025044) 0.0 mg/dL 0.0-0.3 T PROTEIN (test code = 6461637797) 7.3 g/dL 6.3-8.2 ALBUMIN (test code = 7933055926) 4.6 g/dL 3.5-5.0 ALK PHOS (test code = 0829120902) 42 U/L 34-122 ALTv (test code = 1742-6) 86 U/L 5-50 H AST(SGOT) (test code = 3763698764) 41 U/L 13-40 H Lab Interpretation (test cod e = 40907-0) Abnormal [facility] WITH [id number] 02:33:58* Test Item Value Reference Range Interpretation Comme nts WBC (test code = 6690-2) 9.15 See_Comment [Automated [employer]] The system which generated this result transmitted reference range: 4.20 - 10.70 10*3/?L. The reference range was not used to interpret this result as normal/abnormal. RBC (test code = 789-8) 5.12 See_Comment [Automated [employer]] The system which generated this result transmitted [...] g/dL 31.2-35.0 H RDW-SD (test code = 36562-9) 39.2 fL 38.5-51.6 RDW-CV (test code = 788-0) 12.5 % 12.1-15.4 PLT (test code = 777-3) 220 See_Comment [Automated messa ge] The system which generated this result transmitted reference range: 150 - 328 10*3/?L. The reference range was not used to interpret this result as normal/abnormal. MPV (test code = 99136-9) 11.8 fL 9.8-13.0 NRBC/100 WBC (test code = 3918246809) 0.0 See_Comment [Automated me ssage] The system which generated this result transmitted reference range: 0.0 - 10.0 /100 WBCs. The reference range was not used to interpret this result as normal/abnormal. NRBC x10^3 (test code = 4799086871) See_Comment [Automated messa ge] The system which generated this result transmitted reference range: 10*3/?L. The reference range was not used to interpret this result as normal/abnormal. GRAN MAT (NEUT) % (test code = 770-8) 68.5 % IMM GRAN % (test code = 8530475449) 0.30 % LYMPH % (test code = 736-9) 20.9 % MONO % (test code = 5905-5) 7.5 % EOS % (test code = 713-8) 2.3 % BASO % (test code = 706-2) 0.5 % GRAN MAT x10^3(ANC) (test code = 4338697534) 6.26 10*3/uL 1.99-6.95 IMM GRAN x10^3 (test code = 2539599213) 0.03 10*3/uL 0.00-0.06 LYMPH x10^3 (test code = 731-0) 1.91 10*3/uL 1.09-3.23 MONO x10^3 (test code = 742-7) 0.69 10*3/uL 0.36-1.02 EOS x10^3 (test code = 711-2) 0.21 10*3/uL 0.06-0.53 BASO x10^3 (test code = 704-7) 0.05 10*3/uL 0.01-0.09 Lab Interpretation (test code = 35578-9) [facility] 13:24:42* Test Item Value Reference Range Interpretation Comme nts NA (test code = 3257698225) 138 mmol/L 135-145 K (test code = 2395587846) 3.7 mmol/L 3.5-5.0 CL (test code = 8990715761) 102 mmol/L 98-108 CO2 TOTAL (test code = 5162846298) 25 mmol/L 23-31 AGAP (test code = 4430756856) 11 2-16 BUN (test code = 1560446941) 15 mg/dL 7-23 GLUCOSE (test code = 1888445683) 119 mg/dL 70-110 H CREATININE (test code = 0672420181) 0.80 mg/dL 0.60-1.25 TOTAL BILI (test code = 7191764654) 0.5 mg/dL 0.1-1.1 CALCIUM (test code = 8846411049) 8.7 mg/dL 8.6-10.6 T PROTEIN (test code = 0000167393) 7.8 g/dL 6.3-8.2 ALBUMIN (test code = 1438569134) 4.5 g/dL 3.5-5.0 ALK PHOS (test code = 0843838940) 45 U/L 34-122 ALTv (test code = 1742-6) 82 U/L 5-50 H AST(SGOT) (test code = 8811201669) 44 U/L 13-40 H eGFR (test code = 1440530149) 113.5 mL/min/1.73m2 JAY (test code = JAY) [...] imaging tests). Lab Interpretation (test code = 79603-6) Abnormal [facility] 13:24:02* Test Item Value Reference Range Interpretation Comme nts LIPASE (test code = 3363360184) 290 U/L 0-220 H Lab Interpretation (test cod e = 46156-0) Abnormal [facility] WITH [id number] 13:10:59* Test Item Value Reference Range Interpretation Comme nts WBC (test code = 6690-2) 8.31 See_Comment [Automated [employer]] The system which generated this result transmitted reference range: 4.20 - 10.70 10*3/?L. The reference range was not used to interpret this result as normal/abnormal. RBC (test code = 789-8) 5.34 See_Comment [Automated [employer]] The system which generated this result transmitted [...] g/dL 31.2-35.0 H RDW-SD (test code = 06073-6) 38.1 fL 38.5-51.6 L RDW-CV (test code = 788-0) 12.4 % 12.1-15.4 PLT (test code = 777-3) 202 See_Comment [Automated [employer]] The system which generated this result transmitted reference range: 150 - 328 10*3/?L. The reference range was not used to interpret this result as normal/abnormal. MPV (test code = 99434-4) 11.9 fL 9.8-13.0 NRBC/100 WBC (test code = 9378251995) 0.0 See_Comment [[employer]] The system which generated this result transmitted reference range: 0.0 - 10.0 /100 WBCs. The reference range was not used to interpret this result as normal/abnormal. NRBC x10^3 (test code = 5144897038) See_Comment [[employer]] The system which generated this result transmitted reference range: 10*3/?L. The reference range was not used to interpret this result as normal/abnormal. GRAN MAT (NEUT) % (test code = 770-8) 70.7 % IMM GRAN % (test code = 0409306712) 0.80 % LYMPH % (test code = 736-9) 18.4 % MONO % (test code = 5905-5) 7.0 % EOS % (test code = 713-8) 2.6 % BASO % (test code = 706-2) 0.5 % GRAN MAT x10^3(ANC) (test code = 1584251374) 5.87 10*3/uL 1.99-6.95 IMM GRAN x10^3 (test code = 5979058486) 0.07 10*3/uL 0.00-0.06 H LYMPH x10^3 (test code = 731-0) 1.53 10*3/uL 1.09-3.23 MONO x10^3 (test code = 742-7) 0.58 10*3/uL 0.36-1.02 EOS x10^3 (test code = 711-2) 0.22 10*3/uL 0.06-0.53 BASO x10^3 (test code = 704-7) 0.04 10*3/uL 0.01-0.09 Lab Interpretation (test code = 21900-6) [facility] Test Item Value Reference Range Interpretation Comme nts MAGNESIUM (test code = 8388021855) 1.6 mg/dL 1.7-2.4 L Lab Interpretation (test cod e = 79058-1) [facility] (77346)2021-04-18 18:18:35* Test Item Value Reference Range Interpretation Comme nts NA (test code = 4521462972) 136 mmol/L 135-145 K (test code = 9323821114) 4.6 mmol/L 3.5-5.0 CL (test code = 5326647978) 102 mmol/L 98-108 CO2 TOTAL (test code = 9433113585) 24 mmol/L 23-31 AGAP (test code = 4366326901) 2-16 BUN (test code = 7614850664) 12 mg/dL 7-23 GLUCOSE (test code = 5089460135) 95 mg/dL 70-110 CREATININE (test code = 0447470560) 0.78 mg/dL 0.60-1.25 TOTAL BILI (test code = 1737797007) 0.6 mg/dL 0.1-1.1 CALCIUM (test code = 8480316172) 9.3 mg/dL 8.6-10.6 T PROTEIN (test code = 1548114022) 7.1 g/dL 6.3-8.2 ALBUMIN (test code = 4497437940) 4.6 g/dL 3.5-5.0 ALK PHOS (test code = 6107345774) 54 U/L 34-122 ALTv (test code = 1742-6) 53 U/L 5-50 H AST(SGOT) (test code = 8318740345) 37 U/L 13-40 eGFR (test code = 2950767333) mL/min/1.73m2 JAY (test code = JAY) Association [...] imaging tests). Lab Interpretation (test code = 22805-6) [facility]* Test Item Value Reference Range Interpretation Comme nts LIPASE (test code = 5271101835) 49 U/L 0-220 Lab Interpretation (test cod e = 18259-1) Normal [facility] WITH [id number] 18:05:30* Test Item Value Reference Range Interpretation Comme nts WBC (test code = 6690-2) See_Comment H [Automated [employer]] The system which generated this result transmitted reference range: 4.20 - 10.70 10*3/?L. The reference range was not used to interpret this result as normal/abnormal. RBC (test code = 789-8) See_Comment [Automated [employer]] The system which generated this result transmitted [...] 35.0 g/dL 31.2-35.0 RDW-SD (test code = 07450-2) 37.9 fL 38.5-51.6 L RDW-CV (test code = 788-0) 12.5 % 12.1-15.4 PLT (test code = 777-3) See_Comment [Automated messa ge] The system which generated this result transmitted reference range: 150 - 328 10*3/?L. The reference range was not used to interpret this result as normal/abnormal. MPV (test code = 01363-1) 12.1 fL 9.8-13.0 NRBC/100 WBC (test code = 7111853312) See_Comment [Automated [employer] ssage] The system which generated this result transmitted reference range: 0.0 - 10.0 /100 WBCs. The reference range was not used to interpret this result as normal/abnormal. NRBC x10^3 (test code = 6254762574) <0.01 See_Comment [Automated Logentriesa ge] The system which generated this result transmitted reference range: 10*3/?L. The reference range was not used to interpret this result as normal/abnormal. GRAN MAT (NEUT) % (test code = 770-8) 72.0 % IMM GRAN % (test code = 8537165476) 0.60 % LYMPH % (test code = 736-9) 19.4 % MONO % (test code = 5905-5) 6.7 % EOS % (test code = 713-8) 1.0 % BASO % (test code = 706-2) 0.3 % GRAN MAT x10^3(ANC) (test code = 1490921753) 8.94 10*3/uL 1.99-6.95 H IMM GRAN x10^3 (test code = 9934778564) 0.08 10*3/uL 0.00-0.06 H LYMPH x10^3 (test code = 731-0) 2.41 10*3/uL 1.09-3.23 MONO x10^3 (test code = 742-7) 0.83 10*3/uL 0.36-1.02 EOS x10^3 (test code = 711-2) 0.13 10*3/uL 0.06-0.53 BASO x10^3 (test code = 704-7) 0.04 10*3/uL 0.01-0.09 Lab Interpretation (test code = 44564-6) Abnormal [facility]"
[2024-03-06] MEDS ORDERED: ACETAMINOPHEN 500 MG TAB ONE (19:26)
--- NOTE | 2024-03-06 20:49 | RAD REPORT ---
EXAM: Foot Right 3 View HISTORY: PAIN COMPARISON: None FINDINGS: Bones: No acute fracture identified. Alignment:No significant malalignment. Degenerative changes:Dorsal aspect calcaneal spur. Other: n/a IMPRESSION: No evidence of acute osseous abnormality involving the imaged foot.
--- NOTE | 2024-03-06 21:37 | ER ---
Nurse's Notes [facility] Name: Angel Osborne Age: 33 yrs Sex: Male : 1990 Arrival Date: 03/06/2024 Time: 18:56 Bed DX3 Private MD: Diagnosis: Contusion of right foot Presentation: 03/06 19:12 Chief complaint: Patient states: right foot pain after dropping some pipe on his foot. cp4 Also dropped a cologne bottle on it tonight. Coronavirus screen: Client denies travel out of the [place] in the last 14 days. At this time, the client does not indicate any symptoms associated with coronavirus-19. Ebola Screen: Patient negative for fever greater than or equal to 101.5 degrees Fahrenheit, and additional compatible Ebola Virus Disease symptoms Patient denies exposure to infectious person. Patient denies travel to an Ebola-affected area in the 21 days before illness onset. No symptoms or risks identified at this time. Initial Sepsis Screen: Does the patient meet any 2 criteria? HR > 90 bpm. No. Patient's initial sepsis screen is negative. Does the patient have a suspected source of infection? No. Patient's initial sepsis screen is negative. Risk Assessment: Do you want to hurt yourself or someone else? Patient reports no desire to harm self or others. Onset of symptoms was March 06, 2024. 19:12 Method Of Arrival: Ambulatory cp4 19:12 Acuity: MIKE 4 cp4 Triage Assessment: 19:14 General: Appears in no apparent distress. uncomfortable, Behavior is calm, cooperative, cp4 appropriate for age. Pain: Complains of pain in right foot. Historical: - Allergies: 19:14 NKA; cp4 - Home Meds: 19:14 pantoprazole oral [Active]; Trazodone Oral [Active]; cp4 - PMHx: 19:14 acid reflux; Depression; hemorrhoids; cp4 - PSHx: 19:14 Hemorrhoidectomy; cp4 - Immunization history:: Adult Immunizations up to date. - Infectious Disease History:: Denies. - Social history:: Smoking status: Reported history of juuling and/or vaping. - Family history:: not pertinent. Screenin:49 [facility] ED Fall Risk Assessment (Adult) History of falling in the last 3 months, vc1 including since admission No falls in past 3 months (0 pts) Confusion or Disorientation No (0 pts) Intoxicated or Sedated No (0 pts) Impaired Gait No (0 pts) Mobility Assist Device Used No (0 pt) Altered Elimination No (0 pt) Score/Fall Risk Level 0 - 2 = Low Risk Oriented to surroundings, Maintained a safe environment, Educated pt \T\ family on fall prevention, incl call for assistance when getting out of bed. Abuse screen: Denies threats or abuse. Nutritional screening: No deficits noted. Tuberculosis screening: No symptoms or risk factors identified. Vital Signs: 19:12 BP 137 / 92; Pulse 92; Resp 18; Temp 99.5; Pulse Ox 99% ; Weight 127.01 kg; Height 6 cp4 ft. 0 in. ; Pain 8/10; 19:12 Body Mass Index 37.97 (127.01 kg, 182.88 cm) cp4 19:12 Pain Scale: Adult cp4 ED Course: 18:58 Patient arrived in ED. ra3 18:58 Matteo Brown MD is Attending Physician. rt 19:14 Triage completed. cp4 20:29 Foot Right 3 View XRAY In Process Unspecified. EDMS 21:50 Arm band placed on right wrist. vc1 21:50 No provider procedures requiring assistance completed. Patient did not have IV access vc1 during this emergency room visit. Administered Medications: 19:28 Drug: Acetaminophen PO 1000 mg PO once Route: PO; cp4 Medication: 21:51 VIS not applicable for this client. vc1 Outcome: 21:37 Discharge ordered by . rt 21:51 Discharged to home ambulatory, vc1 21:51 Condition: good 21:51 Discharge instructions given to patient, Instructed on discharge instructions, follow up and referral plans. Demonstrated understanding of instructions, follow-up care, 21:51 Patient left the ED. vc1 Signatures: Dispatcher [employer] EDMS Chio Lopez RN RN vc1 Matteo Brown MD MD rt Lia Mancia cp4 Grace Ochoa ra3
--- NOTE | 2024-03-06 21:37 | EDPHYS ---
Physician Documentation [facility] Name: Angel Osborne Age: 33 yrs Sex: Male : 1990 Arrival Date: 03/06/2024 Time: 18:56 Bed DX3 Private MD: ED Physician Matteo Brown HPI: 03/06 23:41 This 33 yrs old Male presents to ER via Ambulatory with complaints of Right foot rt re-injury. 23:41 Over the past week, the patient has had 2 episodes of where he dropped half-inch PVC rt pipe onto his foot causing an injury. Today, the patient dropped a colon bottle onto the foot causing worsening of the pain. Reports contusion, pain with walking. States that ibuprofen and Tylenol are not improving the symptoms. Denies other acute complaints, symptoms are mild in severity, no other aggravating or alleviating factors.. Historical: - Allergies: 19:14 NKA; cp4 - Home Meds: 19:14 pantoprazole oral [Active]; Trazodone Oral [Active]; cp4 - PMHx: 19:14 acid reflux; Depression; hemorrhoids; cp4 - PSHx: 19:14 Hemorrhoidectomy; cp4 - Immunization history:: Adult Immunizations up to date. - Infectious Disease History:: Denies. - Social history:: Smoking status: Reported history of juuling and/or vaping. - Family history:: not pertinent. ROS: 23:41 Constitutional: Negative for fever, chills, and weight loss, Cardiovascular: Negative rt for chest pain, palpitations, and edema, Respiratory: Negative for shortness of breath, cough, wheezing, and pleuritic chest pain, Abdomen/GI: Negative for abdominal pain, nausea, vomiting, diarrhea, and constipation, Neuro: Negative for headache, weakness, numbness, tingling, and seizure, 23:41 MS/extremity: Positive for pain, Negative for deformity, Exam: 23:41 Constitutional: This is a well developed, well nourished patient who is awake, alert, rt and in no acute distress. Head/Face: Normocephalic, atraumatic. Skin: Warm, dry with normal turgor. Normal color with no rashes, no lesions, and no evidence of cellulitis. Neuro: Awake and alert, GCS 15, oriented to person, place, time, and situation. Cranial nerves II-XII grossly intact. Motor strength 5/5 in all extremities. Sensory grossly intact. Cerebellar exam normal. Normal gait. 23:41 Musculoskeletal/extremity: Contusion without laceration noted to the right foot, pulses, motor, sensation are intact, no deformities noted. Vital Signs: 19:12 BP 137 / 92; Pulse 92; Resp 18; Temp 99.5; Pulse Ox 99% ; Weight 127.01 kg; Height 6 cp4 ft. 0 in. ; Pain 8/10; 19:12 Body Mass Index 37.97 (127.01 kg, 182.88 cm) cp4 19:12 Pain Scale: Adult cp4 MDM: 19:10 Medical Screening Exam initiated rt 23:41 Differential Diagnosis Fracture, contusion. Data reviewed: vital signs, nurses notes, rt radiologic studies. Independent interpretation of the following test(s) in the Emergency Department X-Ray: My interpretation is No fracture seen on interpretation of x-ray images. Counseling: I had a detailed discussion with the patient and/or guardian regarding the historical points, exam findings, and any diagnostic results supporting the discharge/admit diagnosis, radiology results, the need for outpatient follow up. 03/06 19:16 Order name: Foot Right 3 View XRAY; Complete Time: 20:54 rt Administered Medications: 19:28 Drug: Acetaminophen PO 1000 mg PO once Route: PO; cp4 Disposition Summary: 03/06/24 21:37 Discharge Ordered Notes: Location: Home rt Problem: new rt Symptoms: have improved rt Condition: Stable rt Diagnosis - Contusion of right foot rt Followup: rt - With: Private Physician - When: 2 - 3 days - Reason: Discharge Instructions: - Discharge Summary Sheet rt - Foot Contusion rt Forms: - Medication Reconciliation Form rt - Antibiotic Education rt - Prescription Opioid Use rt - Patient Portal Instructions rt - Leadership Thank You Letter rt Signatures: Dispatcher [employer] Matteo Bond MD MD rt Lia Mancia cp4
[2024-03-06 21:58] VITALS: BP 137/92; TEMP 99.5; O2SAT 99
== END 2024-03-06 21:51 | disposition home or self-care (01) ==
LOC: ER 18:56
DX: S90.31XA Contusion of right foot, initial encounter (principal); F17.290 Nicotine dependence, other tobacco product, uncomplicated
CPT/HCPCS: 99283

== ENCOUNTER 2024-03-14 23:22 | Emergency (ER) | payer BC ==
--- OUTSIDE RECORDS SUMMARY | 2024-03-14 23:27 | XMS REPORT | Continuity of Care Document ---
Author Name Unknown Address [address] [facility] [address] [place] [address] [facility] thconnect Address [address] [facility] [place] [address] Care Team Providers Care Herbarium Worker Name Role Phone Diogo BENDER, Gisella De Paz Primary Care Physician PIPPA REYNOSO Attending Clinician Unavailable ROSY Attending Clinician Unavailable MELIZA BENNETT Attending Clinician Unavailabl e LAB90 Attending Clinician Unavailable MD JESUS Attending Clinician Unavailab JOHN Moser Attending Clinician Unavailable UJLIANA BAIRD Attending Clinician Unavailable JULIANA BAIRD Attending Clinician Unavailable Juliana Baird DO Attending Clinician [phone] RADHA HERNANDES Attending Clinician Unavailable WILLIAN PEREZ Attending Clinician Unavailable WILLIAN PEREZ Attending Clinician Unavailable LEEANN MCCOY Attending Clinician Unavailable [facility] Attending Clinician Un available Leeann Gomez Attending Clinician [phone] Unknown, Attending Attending Clinician Unavailab NO Guido Attending Clinician Unavailable No Nur MD Attending Clinician [phone] Kayla LIVINGSTON Attending Clinician Unavailable Darryl Owens MD Attending Clinician [phone] Kayla Scherer Attending Clinician [phone] JENY HAIDER Attending Clinician Unavailable INDIA DICKEY Attending Clinician Unavailab India Small DO Attending Clinician +[phone] GISELLA LIND Attending Clinician Unava ilBANDAR Wills Attending Clinician Unavailable Bandar Richardson DO Attending Clinician + LINDA SANFORD Attending Clinician Unavailab Linda Howard Attending Clinician +[phone] SHAE GILLESPIE Attending Clinician Unavailable Shae Gillespie MD Attending Clinician + IVONNE SHULTZ Attending Clinician Unavailable Ivonne Shultz NP Attending Clinician + KACIE QUIROZ Attending Clinician Unavailable Doctor Unassigned, [place] Attending Clinician U justaailHAYDEN Marshall Attending Clinician Unavailable Jose Guadalupe Meraz MD Attending Clinician [phone] Hayden Braswell MD Attending Clinician [phone] CECIL CHATMAN Attending Clinician Unavailable MARAL GAMBLE Attending Clinician Unavailab Maral Wilson DO Attending Clinician +[phone] KAIN RAJPUT Attending Clinician Unavailable Kain Acosta Attending Clinician + IGGY WELLER Attending Clinician UnavailIggy Hernández Attending Clinician + [phone] MIHAI HAHN Attending Clinician Unavailable HARDY ZAVALA Attending Clinician UnavailHardy Casillas MD Attending Clinician + [phone] PARVEEN Attending Clinician Unavailable Gisella Lind MD Attending Clinician +[phone] INDIA DICKEY Admitting Clinician Unavailab BANDAR Pace Admitting Clinician Unavailable IVONNE SHULTZ Admitting Clinician Unavailable HAYDEN BRASWELL Admitting Clinician Unavailable Hayden Braswell MD Admitting Clinician PARVEEN Admitting Clinician Unavailable Kayla LIVINGSTON Admitting Clinician Unavailable Payers Payer Name Policy Type Policy Number Effective Date Expirati on Date Source [facility]IT[facility]) 9 [id number] 2023 00:00:00 [facility] [id number] 00:00:00 Problems Condition Name Condition Details Condition Category Status Onset Date Resolution Date Last Treatment Date Treating Clinician Comments Source Chest pain Chest pain Disease Active 2022-02 00:00: [address] [facility] Obesity (BMI 30-39.9) Obesity (BMI 30-39.9) Disease Active 2022-02 00:00: [address] [facility] No known active problems No known active problems Disease [facility] Allergies, Adverse Reactions, Alerts Allergy Name Allergy Type Status Severity Reaction(s) Onset Date Inactive Date Treating Clinician Comments Source NO KNOWN ALLERGIE S Drug Class Active [facility] Social History Social Habit Start Date Stop Date Quantity Comments Source Gender identity [facility] Sexual orientation [facility] History of tobacco use Passive smoker [facility] Alcoholic beverage intake 2023-07-12 00:00:00 2023-07-12 00:00:00 Current drinker of alcohol (finding) [facility] Alcohol intake 2023-05-31 00:00:00 2023-05-31 00:00:00 Current drinker of alcohol (finding) [facility] History of Social function 2022-11-20 00:00:00 2022-11-20 00:00:00 [facility] Tobacco use and exposure 2022-11-19 00:00:00 2022-11-19 00:00:00 Smokeless tobacco non-user [facility] Tobacco Comment 2022-11-19 00:00:00 2022-11-19 00:00:00 Patient states that he uses vapes with nicotine in replace of cigarettes [facility] Alcohol Comment 2022-11-19 00:00:00 2022-11-19 00:00:00 socially (once every few months) [facility] Exposure to SARS-CoV-2 (event) 2022-02-18 00:00:00 2022-02-28 15:26:00 Not sure [facility] Sex assigned at 1990 00:00:00 1990 00:00:00 [facility] Smoking Status Start Date Stop Date Source Tobacco smoking consumption unknown [facility] Smokes tobacco daily 2022-09-06 00:00:00 Joseline Bean - External Medications Ordered Medication Name Filled Medication Name Start Date Stop Date Current Medication? Ordering Clinician Indication Dosage Frequency Signature (SIG) Comments Components Source linaCLOtide (Linzess) 145 MCG oral Capsule 09-30 00:00: 00 Yes [id number] 145ug QD Take 1 capsule (145 mcg total) by mouth daily. Joseline trejo hydrocortis one 25 mg suppository 09-30 00:00: 00 Yes [id number] 25mg Insert 1 Suppositor y into rectum in the morning and 1 Suppositor y in the evening. [facility] dibucaine 1 % ointment 09-30 00:00: 00 Yes [id number] Apply to area(s) 3 (three) times daily as needed for Pain (scale 4-6) or Pain (scale 7-10). [facility] Pantoprazol e Sodium 40 MG oral Tablet Delayed Response 09-01 00:00: 00 Yes [id number] 40mg QD take 1 tablet by mouth every day Joseline trejo dexamethaso ne sod phos PF injection 10 mg 08-11 17:30: 00 08-11 17:20 :00 No 10mg 10 mg, Intramuscu lar, ONCE, 1 dose, On Fri08/12/23 at 1230, [address] [facility] ketorolac (TORADOL) injection 30 mg 08-11 17:30: 00 08-11 17:22 :00 No 30mg 30 mg, Intramuscu lar, ONCE, 1 dose, On Fri08/12/23 at 1230, POLA [facility] ibuprofen (IBU) tablet 800 mg 06-28 00:45: 00 06-28 00:34 :00 No 800mg 800 mg, Oral, ONCE, 1 dose, On 06/28/23 at 1945, [facility] rabies immune globulin (PF) (HYPERRAB (PF)) injection 2,481 Units 06-27 23:45: 00 06-27 23:51 :00 No 20U/kg 2,481 Units (rounded from 2,480 Units = 20 Units/kg ?124 kg), Intramuscu lar, ONCE, 1 dose, On 06/28/23 at 1845, Routine [facility] mupirocin 2 % ointment 06-27 00:00: 00 Yes [id number] Apply to area(s) 3 (three) times daily. [facility] HYDROcodone -acetaminop hen (NORCO 5) 5-325 mg tablet 1 tablet 05-30 22:15: 00 05-30 22:36 :00 No 1{tbl} 1 tablet, Oral, ONCE, 1 dose, On 05/31/23 at 1715, [facility] Valacyclovi r HCl (Valtrex) 500 MG oral Tablet 05-23 00:00: 00 09-30 00:00 :00 No [id number] 500mg Q.5D Take 1 tablet (500 mg total) by mouth 2 times daily. Joseline trejo methylPREDN ISolone 4 MG oral Tablet Therapy Pack 05-22 00:00: 00 09-30 00:00 :00 No [id number] 1{lam} Take 1 lam by mouth See Admin Instructio ns Use as directed. Joseline trejo Celecoxib (CeleBREX) 200 MG oral Capsule 05-22 00:00: 00 09-30 00:00 :00 No [id number] 200mg Q.5D Take 1 capsule (200 mg total) by mouth 2 times daily. Joseline trejo Trazodone HCl 150 MG oral Tablet 03-22 00:00: 00 Yes [id number] 150mg QD Take 1 tablet (150 mg total) by mouth nightly. Joseline trejo benzonatate 100 mg capsule 03-18 00:00: 00 Yes [id number] 100mg Take 1 capsule by mouth 3 (three) times daily as needed for Cough. [facility] azithromyci n 250 mg tablet 03-18 00:00: 00 Yes [id number] 250mg Take 1 tablet by mouth in the morning. [facility] methylPREDN ISolone (MEDROL, LAM,) 4 mg tablets 03-18 00:00: 00 Yes [id number] Take by mouth SEE-INSTRU CTIONS. follow package directions [facility] ibuprofen (IBU) tablet 600 mg 03-01 02:00: 00 03-01 01:58 :00 No 600mg 600 mg, Oral, ONCE, 1 dose, On Fri02/28/23 at 2000, POLA [facility] benzonatate 100 mg capsule 02-28 00:00: 00 Yes [id number] 100mg Take 1 capsule by mouth 3 (three) times daily as needed for Cough. [facility] Albuterol HFA 108 (90 [...] 02-28 00:00: 00 03-06 05:59 :00 No [id number] 4mg Take 1 tablet by mouth every 8 (eight) hours as needed for Nausea and Vomiting (N/V) for up to [address] [facility] cefTRIAXone (ROCEPHIN) injection 500 mg 2022-02 08:30: 00 Yes 500mg 500 mg, Intramuscu lar, Q24H, First dose on 01/11/23 at 0230, Until Discontinu ed, POLA
Re ason for Anti-Infec tive: Empiric Therapy for Suspected Infection< br>Empiric Therapy Site: Urine
D uration of therapy: Once (ED) [facility] acetaminoph en (TYLENOL) tablet 650 mg 2022-02 07:30: 00 01-11 07:32 :00 No 650mg 650 mg, Oral, ONCE, 1 dose, On 01/11/23 at 0130, POLA [facility] Doxycycline Hyclate 100 MG oral Capsule 2022-02 00:00: 00 05-22 00:00 :00 No 100mg Take 1 capsule (100 mg total) by mouth 2 times daily. Joseline trejo ondansetron 4 mg disintegrat ing tablet 2022-02 00:00: 00 02-28 00:00 :00 No [id number] 4mg Take 1 tablet by mouth every 8 (eight) hours as needed for Nausea and Vomiting (N/V). [facility] Pantoprazol e Sodium 40 MG oral Tablet Delayed Response 2022-02 00:00: 00 Yes [id number] 40mg TAKE 1 TABLET BY MOUTH EVERY DAY Joseline trejo sulfur hexafluorid e microsphr (LUMASON) injection 5 mL 2022-02 16:15: 00 11-20 16:15 :00 No [id number] 5mL 5 mL, Intravenou s, ONCE, 1 dose, On Fri11/20/22 at 1115, Routine
punch out crew member approving Restricted medication : HAYDEN BRASWELL [facility] pantoprazol e (PROTONIX) EC tablet 40 mg 2022-02 0 14:00: 00 Yes 40mg 40 mg, Oral, DAILY, First dose on Fri11/20/22 at 0900, Until Discontinu ed, Routine [facility] sennosides- docusate sodium (SENOKOT-S) 8.6-50 mg per tablet 1 tablet 2022-02 14:00: 00 Yes 1{tbl} 1 tablet, Oral, DAILY, First dose on Fri11/20/22 at 0900, Until Discontinu ed, Routine [facility] HYDROcodone -acetaminop hen (NORCO 5) 5-325 mg tablet 1 tablet 2022-02 03:15: 00 11-20 02:44 :00 No 1{tbl} 1 tablet, Oral, ONCE, 1 dose, On Fri11/19/22 at 2215, Routine [facility] ondansetron (ZOFRAN (PF)) injection 4 mg 2022-02 03:09: 48 Yes 4mg 4 mg, Slow IV Push, Q6HPRN, Nausea and Vomiting (N/V), Starting on Fri11/19/22 at 2209
Do ses of ondansetro n 16 mg and above need to be administer ed via IV piggyback. For Dose >=24mg ECG monitoring is advisable.
[facility] heparin (porcine) injection 5,000 Units 2022-02 03:00: 00 Yes 5000U 5,000 Units, Subcutaneo us, Q8H, First dose on Fri11/19/22 at 2200, Until Discontinu ed, Routine [facility] Lidocaine (LIDOCARE) 4 % patch 1 Patch 2022-02 02:30: 00 11-20 14:44 :00 No 1{patch } 1 Patch, Topical, Administer over 12 Hours, ONCE, 1 dose, On Fri11/19/22 at 2130, Routine [facility] sucralfate (CARAFATE) tablet 1 g 2022-02 0 02:00: 00 Yes 1g 1 g, Oral, AC+HS, First dose on Fri11/19/22 at 2100, Until Discontinu ed, Routine [facility] acetaminoph en (TYLENOL) tablet 650 mg 2022-02 0-04 01:22: 59 Yes 650mg 650 mg, Oral, Q6HPRN, Starting on Fri11/19/22 at 2021, Until Discontinu ed, Routine, Pain (scale 1-3) [facility] sucralfate 1 gram tablet 2022-02 0-04 00:00: 00 12-05 04:59 :00 No [id number] 1g Take 1 tablet by mouth before meals and at bedtime for [address] [facility] Ondansetron (ZOFRAN) 4 MG oral TABLET DISPERSIBLE 2022-02 0-03 00:00: 00 09-30 00:00 :00 No [id number] 4mg [id number] 3D Take 1 tablet (4 mg total) by mouth every 8 hours as needed for nausea. Joseline trejo Pantoprazol e Sodium 40 MG oral Tablet Delayed Response 10-16 00:00: 00 Yes [id number] 40mg TAKE 1 TABLET BY MOUTH EVERY DAY Joseline trejo Metronidazo le 500 MG oral Tablet 10-15 00:00: 00 Yes [id number] 500mg Take 1 tablet (500 mg total) by mouth 2 times daily. Joseline trejo Valacyclovi r HCl (Valtrex) 500 MG oral Tablet 10-15 00:00: 00 Yes [id number] 500mg Take 1 tablet (500 mg total) by mouth 2 times daily. Joseline trejo sulfamethox azole-trime thoprim 800-160 mg per tablet 09-28 00:00: 00 10-06 04:59 :00 No [id number] 1{tbl} Take 1 tablet by mouth every 12 (twelve) hours for [address] [facility] ketorolac (TORADOL) injection 15 mg 09-25 14:45: 00 09-25 13:56 :00 No 15mg 15 mg, Slow IV Push, ONCE, 1 dose, On Fri09/25/22 at 0945, POLA [facility] ondansetron (ZOFRAN (PF)) injection 4 mg 09-25 12:45: 00 09-25 12:43 :00 No 4mg 4 mg, Slow IV Push, ONCE, 1 dose, On Fri09/25/22 at 0745, POLA [facility] maalox:diph enhydrAMINE :lidocaine 2 % viscous 1:1:1 (FIRST-MOUT HWASH BLM) oral suspension 15 mL 09-25 12:45: 00 09-25 12:42 :00 No 15mL 15 mL, Oral, ONCE, 1 dose, On Fri09/25/22 at 0745, Routine [facility] proMETHazin e 25 mg tablet 09-25 00:00: 00 11-20 00:00 :00 No [id number] 25mg Take 1 tablet by mouth every 6 (six) hours as needed for Nausea and Vomiting (N/V). [facility] pantoprazol e 40 mg EC tablet 09-06 00:00: 00 Yes 40mg Take [address] [facility] Hydrocortis one Acetate (Hemmorex-H C) 25 MG rectal Suppository 09-06 00:00: 00 05-21 00:00 :00 No [id number] 25mg Apply 1 suppositor y (25 mg total) rectally 2 times daily Joseline trejo NIFEdipine 0.2 % in Lidocaine 5 % 60 g compounded rectal ointment 09-06 00:00: 00 05-21 00:00 :00 No [id number] Apply 1 applicatio n. rectally 2 times daily (Apply pea-sized amount to fingertip and then apply just inside anus) Joseline trejo Mupirocin (BACTROBAN) 2 % apply externally Ointment 08-04 00:00: 00 09-30 00:00 :00 No [id number] 3D Apply 1 applicatio n. topically 3 times daily Joseline trejo mupirocin 2 % ointment 08-03 00:00: 00 Yes [id number] Apply to area(s) 3 (three) times daily. [facility] cephALEXin (KEFLEX) 500 mg capsule 08-03 00:00: 00 08-11 04:59 :00 No [id number] 500mg Take 1 capsule by mouth 4 (four) times daily for [address] [facility] doxycycline hyclate 100 mg capsule 08-03 00:00: 08-11 04:59 :00 No [id number] 100mg Take 1 capsule by mouth in the morning and 1 capsule in the evening. Do all this for [address] [facility] traZODone 150 mg tablet 06-28 00:00: 00 Yes 150mg Take [address] [facility] meclizine (TRAVEL-EAS E (MECLIZINE) ) tablet 25 mg 02-28 21:15: 00 02-28 21:26 :00 No 25mg 25 mg, Oral, ONCE, 1 dose, On Kimmy 02/28/22 at 1515, POLA [facility] meclizine 25 mg tablet 02-28 00:00: 00 09-28 00:00 :00 No 25mg Take [address] [facility] predniSONE 20 MG oral tablet 02-22 00:00: 00 Yes [id number] 20mg Take 1 tablet (20 mg total) by mouth daily Joseline trejo Ondansetron HCl 4 MG oral Tablet 02-22 00:00: 00 11-19 00:00 :00 No [id number] 4mg [id number] 3D Take 1 tablet (4 mg total) by mouth every 8 hours as needed for nausea Joseline trejo Amoxicillin 500 MG oral Capsule 02-19 00:00: 00 Yes [id number] TAKE 1 CAPSULE BY MOUTH TWICE A DAY IN THE MORNING AND EVENING FOR 10 DAYS Joseline trejo meclizine (TRAVEL-EAS E (MECLIZINE) ) tablet 25 mg 2021-02- 18:00: 00 02-13 18:02 :00 No 25mg 25 mg, Oral, ONCE, 1 dose, On Fri02/13/22 at 1200, POLA [facility] amoxicillin 500 mg capsule 2021-02 00:00: 00 02-24 05:59 :00 No [id number] 500mg Take 1 capsule by mouth in the morning and 1 capsule in the evening. Do all this for [address] [facility] meclizine 25 mg tablet 2021-02 00:00: 00 02-19 05:59 :00 No [id number] 25mg Take 1 tablet by mouth 3 (three) times daily as needed for Dizziness for up to [address] [facility] Trazodone HCl 150 MG oral Tablet 08-02 00:00: 00 Yes 150mg Take 1 tablet (150 mg total) by mouth nightly Joseline Bean - Externa l magnesium sulfate in water 2 gram/50 mL (4 %) infusion 2 g 04-18 20:15: 00 04-18 20:18 :00 No 2g 2 g, IV Piggyback, ONCE, 1 dose, On Fri04/18/21 at 1415, Routine [facility] iopamidol (ISOVUE 370-500 mL) injection 120 mL 04-18 19:15: 00 04-18 17:55 :00 No [id number] 120mL 120 mL, Intravenou s, ONCE, 1 dose, On Fri04/18/21 at 1315, Routine [facility] Trazodone HCl 150 MG oral Tablet 03-15 14:59: 18 Yes 150mg Take 150 mg by mouth nightly Joseline eBan Immunizations Ordered Immunization Name Filled Immunization Name Date Status Comments Source Human Rabies Vaccine-PCEC Unknown Completed Joseline Bean - External Human Rabies Vaccine-PCEC Unknown Completed Joseline Chapman Td- Tetanus & Diphtheria Vaccine (age 7+ years) Unknown Completed Joseline sanches - External Human Rabies Vaccine From Chicken Fibroblast Culture (JACINDAT) Unknown Completed [facility] TD Pres-Free Unknown Completed [facility] Human Rabies Vaccine From Chicken Fibroblast Culture (RABAVERT) Unknown Completed [facility] TD Pres-Free Unknown Completed [facility] SARS-COV-2 COVID-19 VACCINE - (MODERNA) Unknown Completed [facility] Human Rabies Vaccine From Chicken Fibroblast Culture (RABAVERT) Unknown Completed [facility] Human Rabies Vaccine From Chicken Fibroblast Culture (RABAVERT) Unknown Completed [facility] TD Pres-Free Unknown Completed [facility] SARS-COV-2 COVID-19 VACCINE - (MODERNA) Unknown Completed [facility] Human Rabies Vaccine From Chicken Fibroblast Culture (RABAVERT) Unknown Completed [facility] Human Rabies Vaccine From Chicken Fibroblast Culture (RABAVERT) Unknown Completed [facility] TD Pres-Free Unknown Completed [facility] SARS-COV-2 COVID-19 VACCINE - (MODERNA) Unknown Completed [facility] Human Rabies Vaccine From Chicken Fibroblast Culture (RABAVERT) Unknown Completed [facility] Human Rabies Vaccine From Chicken Fibroblast Culture (RABAVERT) Unknown Completed [facility] TD Pres-Free Unknown Completed [facility] SARS-COV-2 COVID-19 VACCINE - (MODERNA) Unknown Completed [facility] Human Rabies Vaccine From Chicken Fibroblast Culture (RABAVERT) Unknown Completed [facility] Human Rabies Vaccine From Chicken Fibroblast Culture (RABAVERT) Unknown Completed [facility] TD Pres-Free Unknown Completed [facility] SARS-COV-2 COVID-19 VACCINE - (MODERNA) Unknown Completed [facility] Human Rabies Vaccine From Chicken Fibroblast Culture (RABAVERT) Unknown Completed [facility] Vital Signs Vital Name Observation Time Observation Value Comments S ource Systolic blood pressure 2023-10-01 20:58:00 144 mm[Hg] [facility] Diastolic blood pressure 2023-10-01 20:58:00 89 mm[Hg] [facility] Heart rate 2023-10-01 20:58:00 84 /min Shahzade [facility] Body temperature 2023-10-01 20:58:00 36.72 Shivani [facility] Respiratory rate 2023-10-01 20:58:00 14 /min [facility] Body height 2023-10-01 20:58:00 182.9 cm [facility] Body weight 2023-10-01 20:58:[address] [facility] BMI 2023-10-01 20:58:00 36.62 kg/m2 [facility] Oxygen saturation in Arterial blood by Pulse oximetry 2023-10-01 20:58:00 99 /min [facility] Systolic blood pressure 2023-10-01 18:36:00 120 [...] Systolic blood pressure 2023-08-12 16:37:00 125 mm[Hg] [facility] Diastolic blood pressure 2023-08-12 16:37:00 92 mm[Hg] [facility] Heart rate 2023-08-12 16:37:00 93 /min [facility] Body temperature 2023-08-12 16:37:00 37 Shivani [facility] Respiratory rate 2023-08-12 16:37:00 18 /min [facility] Body height 2023-08-12 16:37:[address] [facility] Body weight 2023-08-12 16:37:[address] [facility] BMI 2023-08-12 16:37:00 36.62 kg/m2 [facility] Oxygen saturation in Arterial blood by Pulse oximetry 2023-08-12 16:37:00 96 /min [facility] Systolic blood pressure 2023-07-12 16:23:00 109 mm[Hg] [facility] Diastolic blood pressure 2023-07-12 16:23:00 74 mm[Hg] [facility] Heart rate 2023-07-12 16:23:00 61 /min [facility] Body temperature 2023-07-12 16:23:00 36.78 Shivani [facility] Respiratory rate 2023-07-12 16:23:00 12 /min [facility] Body weight 2023-07-12 16:23:[address] [facility] BMI 2023-07-12 16:23:00 36.75 kg/m2 [facility] Oxygen saturation in Arterial blood by Pulse oximetry 2023-07-12 16:23:00 97 /min [facility] Systolic blood pressure 2023-07-05 17:17:00 135 mm[Hg] [facility] Diastolic blood pressure 2023-07-05 17:17:00 82 mm[Hg] [facility] Heart rate 2023-07-05 17:17:00 80 /min [facility] Body temperature 2023-07-05 17:17:00 36.56 Shivani [facility] Respiratory rate 2023-07-05 17:17:00 18 /min [facility] Oxygen saturation in Arterial blood by Pulse oximetry 2023-07-05 17:17:00 100 /min [facility] Systolic blood pressure 2023-07-01 23:15:00 130 mm[Hg] [facility] Diastolic blood pressure 2023-07-01 23:15:00 87 mm[Hg] [facility] Heart rate 2023-07-01 23:15:00 83 /min [facility] Body temperature 2023-07-01 23:15:00 37.33 Shivani [facility] Respiratory rate 2023-07-01 23:15:00 14 /min [facility] Body height 2023-07-01 23:15:00 182.9 cm [facility] Body weight 2023-07-01 23:15:00 123.832 kg [facility] BMI 2023-07-01 23:15:00 37.03 kg/m2 [facility] Oxygen saturation in Arterial blood by Pulse oximetry 2023-07-01 23:15:00 97 /min [facility] Systolic blood pressure 2023-06-29 00:34:00 124 mm[Hg] [facility] Diastolic blood pressure 2023-06-29 00:34:00 85 mm[Hg] [facility] Heart rate 2023-06-29 00:34:00 74 /min [facility] Body temperature 2023-06-29 00:34:00 37.06 Shivani [facility] Oxygen saturation in Arterial blood by Pulse oximetry 2023-06-29 00:34:00 96 /min [facility] Respiratory rate 2023-06-28 23:48:00 14 /min [facility] Body weight 2023-06-28 22:32:[address] [facility] BMI 2023-06-28 22:32:00 37.07 kg/m2 [facility] Body height 2023-06-28 21:46:[address] [facility] Systolic blood pressure 2023-05-31 22:04:00 145 mm[Hg] [facility] Diastolic blood pressure 2023-05-31 22:04:00 85 mm[Hg] [facility] Heart rate 2023-05-31 22:04:00 84 /[facility] 2023-05-31 22:04:00 36.61 Shivani [facility] Respiratory rate 2023-05-31 22:04:00 16 /min [facility] Body height 2023-05-31 22:04:00 182.9 cm [facility] Body weight 2023-05-31 22:04:00 123.832 kg [facility] BMI 2023-05-31 22:04:00 37.03 kg/m2 [facility] Oxygen saturation in Arterial blood by Pulse oximetry 2023-05-31 22:04:00 99 /min [facility] Systolic blood pressure 2023-05-23 14:15:00 126 [...] Systolic blood pressure 2023-03-18 18:37:00 116 mm[Hg] [facility] Diastolic blood pressure 2023-03-18 18:37:00 80 mm[Hg] [facility] Heart rate 2023-03-18 18:37:00 87 /min [facility] Body temperature 2023-03-18 18:37:00 36.83 Shivani [facility] Respiratory rate 2023-03-18 18:37:00 18 /min [facility] Body weight 2023-03-18 18:37:[address] [facility] BMI 2023-03-18 18:37:00 35.94 kg/m2 [facility] Oxygen saturation in Arterial blood by Pulse oximetry 2023-03-18 18:37:00 99 /min [facility] Systolic blood pressure 2023-03-01 01:45:00 141 mm[Hg] [facility] Diastolic blood pressure 2023-03-01 01:45:00 86 mm[Hg] [facility] Heart rate 2023-03-01 01:45:00 92 /min [facility] Body temperature 2023-03-01 01:45:00 37.28 Shivani [facility] Respiratory rate 2023-03-01 01:45:00 16 /min [facility] Body height 2023-03-01 01:45:[address] [facility] Body weight 2023-03-01 01:45:[address] [facility] BMI 2023-03-01 01:45:00 35.94 kg/m2 [facility] Oxygen saturation in Arterial blood by Pulse oximetry 2023-03-01 01:45:00 100 /min [facility] Systolic blood pressure 2023-01-25 10:30:00 127 mm[Hg] [facility] Diastolic blood pressure 2023-01-25 10:30:00 84 mm[Hg] [facility] Heart rate 2023-01-25 10:30:00 77 /min Un[facility] Body temperature 2023-01-25 10:30:00 36.67 Shivani [facility] Respiratory rate 2023-01-25 10:30:00 18 /min [facility] Body height 2023-01-25 10:30:[address] [facility] Body weight 2023-01-25 10:30:[address] [facility] BMI 2023-01-25 10:30:00 35.94 kg/m2 [facility] Oxygen saturation in Arterial blood by Pulse oximetry 2023-01-25 10:30:00 99 /min [facility] Systolic blood pressure 2023-01-11 06:54:00 120 mm[Hg] [facility] Diastolic blood pressure 2023-01-11 06:54:00 69 mm[Hg] [facility] Heart rate 2023-01-11 06:54:00 61 /min Un[facility] Body temperature 2023-01-11 06:54:00 36.33 Shivani [facility] Oxygen saturation in Arterial blood by Pulse oximetry 2023-01-11 06:54:00 98 /min [facility] Respiratory rate 2023-01-11 03:19:00 18 /min [facility] Body height 2023-01-11 03:19:00 182.9 cm [facility] Body weight 2023-01-11 03:19:[address] [facility] BMI 2023-01-11 03:19:00 36.62 kg/m2 [facility] Systolic blood pressure 2022-12-02 13:34:00 126 mm[Hg] [facility] Diastolic blood pressure 2022-12-02 13:34:00 90 mm[Hg] [facility] Heart rate 2022-12-02 13:34:00 77 /min [facility] Body temperature 2022-12-02 13:34:00 37 Shivani [facility] Respiratory rate 2022-12-02 13:34:00 18 /min [facility] Body height 2022-12-02 13:34:00 182.9 cm [facility] Body weight 2022-12-02 13:34:[address] [facility] BMI 2022-12-02 13:34:00 35.94 kg/m2 [facility] Oxygen saturation in Arterial blood by Pulse oximetry 2022-12-02 13:34:00 100 /min [facility] Body height 2022-11-20 20:00:[address] [facility] Systolic blood pressure 2022-11-20 16:50:00 124 mm[Hg] [facility] Diastolic blood pressure 2022-11-20 16:50:00 83 mm[Hg] [facility] Heart rate 2022-11-20 16:50:00 61 /min Un[facility] Body temperature 2022-11-20 16:50:00 36.61 Shivani [facility] Respiratory rate 2022-11-20 16:50:00 20 /min [facility] Oxygen saturation in Arterial blood by Pulse oximetry 2022-11-20 16:50:00 98 /min [facility] Body weight 2022-11-20 01:00:[address] [facility] BMI 2022-11-20 01:00:00 36.48 kg/m2 [facility] Systolic blood pressure 2022-09-28 14:31:00 136 mm[Hg] [facility] Diastolic blood pressure 2022-09-28 14:31:00 97 mm[Hg] [facility] Heart rate 2022-09-28 14:31:00 76 /min [facility] Body temperature 2022-09-28 14:31:00 36.67 Shivani [facility] Respiratory rate 2022-09-28 14:31:00 18 /min [facility] Body height 2022-09-28 14:31:[address] [facility] Body weight 2022-09-28 14:31:[address] [facility] BMI 2022-09-28 14:31:00 36.48 kg/m2 [facility] Oxygen saturation in Arterial blood by Pulse oximetry 2022-09-28 14:31:00 98 /min [facility] Systolic blood pressure 2022-09-25 14:52:21 125 mm[Hg] [facility] Diastolic blood pressure 2022-09-25 14:52:21 88 mm[Hg] [facility] Heart rate 2022-09-25 14:52:21 72 /min [facility] Body temperature 2022-09-25 14:52:21 36.83 Shivani [facility] Respiratory rate 2022-09-25 14:52:21 16 /min [facility] Oxygen saturation in Arterial blood by Pulse oximetry 2022-09-25 14:52:21 96 /min [facility] Body height 2022-09-25 12:10:[address] [facility] Body weight 2022-09-25 12:10:[address] [facility] BMI 2022-09-25 12:10:00 36.48 kg/m2 [facility] Systolic blood pressure 2022-09-06 18:47:00 124 [...] External Heart rate 2022-08-04 01:30:00 89 /min [facility] Body temperature 2022-08-04 01:30:00 37.11 Shivani [facility] Respiratory rate 2022-08-04 01:30:00 18 /min [facility] Body height 2022-08-04 01:30:[address] [facility] Body weight 2022-08-04 01:30:[address] [facility] BMI 2022-08-04 01:30:00 34.70 kg/m2 [facility] Oxygen saturation in Arterial blood by Pulse oximetry 2022-08-04 01:30:00 100 /min [facility] Systolic blood pressure 2022-08-04 01:30:00 146 mm[Hg] [facility] Diastolic blood pressure 2022-08-04 01:30:00 105 mm[Hg] [facility] Systolic blood pressure 2022-07-12 18:18:00 118 [...] Systolic blood pressure 2022-02-28 20:48:00 139 mm[Hg] [facility] Diastolic blood pressure 2022-02-28 20:48:00 92 mm[Hg] [facility] Heart rate 2022-02-28 20:48:00 78 /min [facility] Body temperature 2022-02-28 20:48:00 36.89 Shivani [facility] Respiratory rate 2022-02-28 20:48:00 22 /min [facility] Body height 2022-02-28 20:48:[address] [facility] Body weight 2022-02-28 20:48:[address] [facility] BMI 2022-02-28 20:48:00 31.87 kg/m2 [facility] Oxygen saturation in Arterial blood by Pulse oximetry 2022-02-28 20:48:00 99 /min [facility] Systolic blood pressure 2022-02-13 17:19:00 146 mm[Hg] [facility] Diastolic blood pressure 2022-02-13 17:19:00 85 mm[Hg] [facility] Heart rate 2022-02-13 17:19:00 90 /min [facility] Body temperature 2022-02-13 17:19:00 36.61 Shivani [facility] Respiratory rate 2022-02-13 17:19:00 16 /min [facility] Body height 2022-02-13 17:19:[address] [facility] Body weight 2022-02-13 17:19:[address] [facility] BMI 2022-02-13 17:19:00 31.87 kg/m2 [facility] Oxygen saturation in Arterial blood by Pulse oximetry 2022-02-13 17:19:00 100 /min [facility] Systolic blood pressure 2021-04-18 20:00:00 119 mm[Hg] [facility] Diastolic blood pressure 2021-04-18 20:00:00 72 mm[Hg] [facility] Heart rate 2021-04-18 20:00:00 72 /min [facility] Respiratory rate 2021-04-18 20:00:00 21 /min [facility] Oxygen saturation in Arterial blood by Pulse oximetry 2021-04-18 20:00:00 97 /min [facility] Body temperature 2021-04-18 16:29:00 36.44 Shivani [facility] Body height 2021-04-18 16:29:[address] [facility] Body weight 2021-04-18 16:29:[address] [facility] BMI 2021-04-18 16:29:00 32.28 kg/m2 [facility] Body height 2021-03-15 21:05:00 182.9 cm [...] VACCINE, IM 2023-07-12 16:29:39 Doctor Un assigned, [place] [facility] RABIES VACCINE, IM 2023-07-01 23:31:31 [facility] 3 VW RIGHT 2023-05-31 22:39:24 Aimee Dickey [facility] ASSIGNMENT OF BENEFITS 2023-03-18 19:32:42 Docto r Unassigned, [place] [facility] CONSENT/REFUSAL FOR DIAGNOSIS AND TREATMENT 2023-03-18 18:28:03 Doctor Unassigned, [place] [facility] RAPID STREP SCREEN FOR GROUP A 2023-03-01 01:55:00 Linda Sanford [facility] RAPID INFLUENZA A/B 2023-03-01 01:55:00 Linda Sanford [facility] COVID-19 (ID NOW RAPID TESTING) 2023-03-01 01:55:00 Linda Sanford [facility] CONSENT/REFUSAL FOR DIAGNOSIS AND TREATMENT 2023-03-01 01:37:40 Doctor Unassigned, [place] [facility] RAPID STREP SCREEN FOR GROUP A 2023-01-25 10:33:00 Shae Gillespie [facility] CONSENT/REFUSAL FOR DIAGNOSIS AND TREATMENT 2023-01-25 10:18:08 Doctor Unassigned, [place] [facility] US TESTICULAR TORSION 2023-01-11 06:06:00 Joey Shultz [facility] URINALYSIS 2023-01-11 04:00:[address] [facility] CONSENT/REFUSAL FOR DIAGNOSIS AND TREATMENT 2023-01-11 03:07:43 Doctor Unassigned, [place] [facility] INSURANCE CORRESPONDENCE 2022-12-10 05:01:00 Doc tor Unassigned, [place] [facility] REFERRAL- REQUEST/RESPONSE 2022-12-09 05:01:00 Doctor Unassigned, [place] [facility] CONSENT/REFUSAL FOR DIAGNOSIS AND TREATMENT 2022-12-02 13:22:20 Doctor Unassigned, [place] [facility] TRANSTHORACIC ECHO (TTE) COMPLETE W/ CONTRAST 2022-11-20 16:09:18 [facility] TROPONIN I 2022-11-20 13:52:00 Chanel [facility] C-REACTIVE PROTEIN 2022-11-20 07:13:00 Al Tate [facility] TROPONIN I 2022-11-20 07:13:00 Al [facility] LIPID PANEL (50933)(TOTAL CHOLESTEROL, TRIGLYCERIDES, HDL) 2022-11-20 07:13:00 Lea Melendez [facility] FERRITIN SERUM 2022-11-20 02:14:00 [facility] TROPONIN I 2022-11-20 02:14:00 Al [facility] FREE T4 2022-11-20 02:14:00 [facility] THYROID STIMULATING HORMONE 2022-11-20 02:14:00 Al [facility] HEPATIC FUNCTION PANEL (71984) (ALB,T.PRO,BILI T,BU/BC,ALT,AST,ALK PHOS) 2022-11-20 02:14:00 Lea Melendez [facility] BASIC METABOLIC PANEL (NA, K, CL, CO2, GLUCOSE, BUN, CREATININE, CA) 2022-11-20 02:14:00 Lea Melendez Joseph [facility] IRON PANEL 2022-11-20 02:14:00 Chanel [facility] SEDIMENTATION RATE 2022-11-20 02:14:00 Tobias [facility]endezhammad [facility] CBC WITH DIFF 2022-11-20 02:14:00 Chanel Melendez [facility] GLYCOSYLATED HEMOGLOBIN (A1C) 2022-11-20 02:14:00 Al [facility] N-TERMINAL PRO-BNP 2022-11-20 02:14:00 Al [facility] XR CHEST 1 VW 2022-11-20 02:08:59 Al [facility] EXTRA TUBE LT. GREEN 2022-11-20 02:05:00 Wilfredo Braswell [facility] INSURANCE CORRESPONDENCE 2022-11-02 05:01:00 Doc tor Unassigned, [place] [facility] US TESTICULAR TORSION 2022-09-28 15:35:02 Joey Shultz [facility] URINALYSIS 2022-09-28 14:52:[address] [facility] CONSENT/REFUSAL FOR DIAGNOSIS AND TREATMENT 2022-09-28 14:27:23 Doctor Unassigned, [place] [facility] LIPASE 2022-09-25 12:43:00 Maral Gamble [facility] COMP. METABOLIC PANEL ([id number]) 2022-09-25 12:43:00 Maral Gamble [facility] CBC WITH DIFF 2022-09-25 12:43:00 Maral Gamble [facility] CONSENT/REFUSAL FOR DIAGNOSIS AND TREATMENT 2022-09-25 12:03:13 Doctor Unassigned, [place] [facility] URINALYSIS 2022-08-04 01:52:00 Kain Rajput [facility] NOTICE OF PRIVACY PRACTICES 2022-08-04 01:24:37 Doctor Unassigned, [place] [facility] CONSENT/REFUSAL FOR DIAGNOSIS AND TREATMENT 2022-08-04 01:24:12 Doctor Unassigned, [place] [facility] CONSENT/REFUSAL FOR DIAGNOSIS AND TREATMENT 2022-02-28 20:35:39 Doctor Unassigned, [place] [facility] RAPID STREP SCREEN FOR GROUP A 2022-02-13 18:03:00 Hardy Zavala [facility] RAPID INFLUENZA A/B 2022-02-13 18:03:00 Dinesh Zavala [facility] COVID-19 (ID NOW RAPID TESTING) 2022-02-13 18:03:00 Hardy Zavala [facility] CONSENT/REFUSAL FOR DIAGNOSIS AND TREATMENT 2022-02-13 17:16:02 Doctor Unassigned, [place] [facility] CT ABDOMEN PELVIS W CONTRAST 2021-04-18 18:02:33 Kayla Livingston [facility] LIPASE 2021-04-18 17:19:00 Kayla Livingston [facility] MAGNESIUM 2021-04-18 17:19:00 Kayla Livingston [facility] COMP. METABOLIC PANEL ([id number]) 2021-04-18 17:19:00 Kayla Livingston [facility] CBC WITH DIFF 2021-04-18 17:19:00 [facility] 2021-04-18 17:19:00 Kayla Livingston [facility] NOTICE OF PRIVACY PRACTICES 2021-04-18 16:02:42 Doctor Unassigned, [place] [facility] Encounters Start Date/Time End Date/Time Encounter Type Admission Type Attending [facility] Care Facility Care Department Encounter ID Source 2024-02-29 00:00:00 2024-02-29 00:00:00 Outpatient PIPPA REYNOSO [id number] Joseline Seybcami 2024-02-20 00:00:00 2024-02-20 00:00:00 Outpatient ROSY JOSELINE GOLDBERG [id number] [facility] Sey[facility] 2024-02-19 00:00:00 2024-02-19 00:00:00 Outpatient ROSY JOSELINE GOLDBERG [id number] [facility] 2024-01-28 00:00:00 2024-01-28 00:00:00 Outpatient SAVANAHDarling PIPPA JOSELINE GOLDBERG [id number] [facility] 2024-01-19 00:00:00 2024-01-19 00:00:00 Outpatient EDGARDO PIPPA GOLDBERG [id number] [facility] 2023-12-19 00:00:00 2023-12-19 00:00:00 Outpatient JOSELINE GOLDBERG [id number] [facility] 2023-12-10 09:00:00 2023-12-10 09:00:00 Outpatient MELIZA BENNETT [id number] [facility] 2023-11-30 00:00:00 2023-11-30 00:00:00 Outpatient EDGARDO PIPPA JOSELINE GOLDBERG [id number] [facility] 2023-10-24 00:00:00 2023-10-24 00:00:00 Outpatient JOSELINE GOLDBERG [id number] [facility] 2023-10-23 13:50:00 2023-10-23 13:50:00 Outpatient LAB90 JOSELINE GOLDBERG [id number] [facility] 2023-10-23 00:00:00 2023-10-23 00:00:00 Outpatient PIPPA REYNOSO [id number] Joseline Seybold 2023-10-17 00:00:00 2023-10-17 00:00:00 Outpatient MD JOSELINE MATHIAS [id number] [facility]eline [facility] 2023-10-17 00:00:00 2023-10-17 00:00:00 Outpatient MD JOSELINE MATHIAS [id number] [facility]eline Sey[facility] 2023-10-15 00:00:00 2023-10-15 00:00:00 Outpatient JOHN YIN JOSELINE GOLDBERG [id number] [facility] 2023-10-06 00:00:00 2023-10-06 00:00:00 Outpatient JOSELINE GOLDBERG [id number] [facility] 2023-10-03 00:00:00 2023-10-03 00:00:00 Outpatient JOSELINE GOLDBERG [id number] [facility] 2023-10-02 00:00:00 2023-10-02 00:00:00 Outpatient EDGARDO PIPPA GOLDBERG [id number] [facility] 2023-10-01 15:59:00 2023-10-01 17:11:00 Emergency JULIANA BARRY TIMOTHY [facility] [id number] [facility] 2023-10-01 15:59:00 2023-10-01 17:11:00 Emergency Juliana Baird AT [facility] [id number] [facility] 2023-10-01 14:45:00 2023-10-01 14:45:00 Outpatient LAB90 JOSELINE GOLDBERG [id number] [facility] 2023-10-01 14:00:00 2023-10-01 14:00:00 Outpatient EDGARDO PIPPA GOLDBERG [id number] [facility] 2023-10-01 00:00:00 2023-10-01 00:00:00 Outpatient CECILIORADHA SALVADOR JOSELINE GOLDBERG [id number] [facility] 2023-10-01 00:00:00 2023-10-01 00:00:00 Outpatient JOSELINE GOLDBERG [id number] [facility] 2023-09-02 00:00:00 2023-09-02 00:00:00 Outpatient EDGARDO PIPPA GOLDBERG [id number] [facility] 2023-08-12 11:39:00 2023-08-12 12:41:00 Emergency X JAYESWLILIAN JULIO [facility] ERT [id number] [facility] 2023-08-12 11:39:00 2023-08-12 12:41:00 Emergency Magdaleno Perezio C [facility] [id number] [id number] [facility] 2023-07-12 11:15:00 2023-07-12 11:40:51 Outpatient R LEEANN MCCOY [facility] [id number] [facility] 2023-07-12 11:15:00 2023-07-12 11:35:00 [facility] [id number] [id number] [id number] [facility] 2023-07-05 12:00:00 2023-07-05 12:57:22 Outpatient R MICHAELLEEANN JEFFERY [facility] [id number] [facility] 2023-07-05 12:00:00 2023-07-05 12:20:00 Nurse [facility] Unknown, [facility]ending [facility] [id number] 350.1.13.10 [id number] [facility] 2023-07-01 18:00:00 2023-07-01 18:54:27 Outpatient R NO NUR [facility] [id number] [facility] 2023-07-01 18:00:00 2023-07-01 18:20:00 Urgent Care No Nur Unknown, Attending [facility] [id number] 350.1.13.10 [id number] [facility] 2023-06-28 16:49:00 2023-06-28 20:22:00 Emergency X YARA Kayla [facility] ERT [id number] [facility] 2023-06-28 16:49:00 2023-06-28 20:22:00 Emergency Darryl Owens YaraKayla Asiya [facility] [id number] 350.1.13.10 [id number] [facility] 2023-06-23 00:00:00 2023-06-23 00:00:00 Outpatient JOSELINE GOLDBERG [id number] [facility] 2023-06-23 00:00:00 2023-06-23 00:00:00 Outpatient JOSELINE GOLDBERG [id number] [facility] 2023-06-16 00:00:00 2023-06-16 00:00:00 Outpatient PIPPA REYNOSO [id number] [facility] 2023-06-15 00:00:00 2023-06-15 00:00:00 Outpatient PIPPA REYNOSO [id number] [facility] 2023-06-13 13:45:00 2023-06-13 13:45:00 Outpatient JENY HAIDER [id number] [facility] 2023-06-05 00:00:00 2023-06-05 00:00:00 Outpatient JENY HAIDER [id number] [facility] 2023-06-02 00:00:00 2023-06-02 00:00:00 Outpatient PIPPA REYNOSO [id number] [facility] 2023-06-02 00:00:00 2023-06-02 00:00:00 Outpatient JOSELINE GOLDBERG [id number] [facility] 2023-06-02 00:00:00 2023-06-02 00:00:00 Outpatient PIPPA REYNOSO [id number] [facility] 2023-05-31 17:06:00 2023-05-31 18:29:00 Emergency X INDIA DICKEY [facility] ERT [id number] [facility] 2023-05-31 17:06:00 2023-05-31 18:29:00 Emergency India Dickey [facility] 1.2.840.114 350.1.13.10 4.2.7.2.[id number] [facility] 2023-05-28 00:00:00 2023-05-28 00:00:00 Outpatient EDGARDO PIPPA GOLDBERG [id number] Joseline [facility] 2023-05-28 00:00:00 2023-05-28 00:00:00 Outpatient EDGARDO PIPPA GOLDBERG [id number] Joseline [facility] 2023-05-28 00:00:00 2023-05-28 00:00:00 Outpatient PIPPA REYNOSO [id number] [facility]eline [facility] 2023-05-23 09:30:00 2023-05-23 09:30:00 Outpatient EDGARDO PIPPA GOLDBERG [id number] [facility] 2023-05-23 00:00:00 2023-05-23 00:00:00 Outpatient EDGARDO PIPPA GOLDBERG [id number] [facility] 2023-03-25 00:00:00 2023-03-25 00:00:00 Outpatient GISELLA LIND [id number] [facility] 2023-03-25 00:00:00 2023-03-25 00:00:00 Outpatient GISELLA LIND [id number] [facility] 2023-03-25 00:00:00 2023-03-25 00:00:00 Outpatient JOSELINE GOLDBERG [id number] [facility] 2023-03-19 00:00:00 2023-03-19 00:00:00 Outpatient GISELLA LIND [id number] [facility] 2023-03-18 12:37:00 2023-03-18 13:38:00 Emergency X BANDAR RICHARDSON [facility] ERT [id number] [facility] 2023-03-18 12:37:00 2023-03-18 13:38:00 Emergency Bandar Richardson [facility] 1.2.840.114 350.1.13.10 4.2.7.2.[id number] [facility] 2023-02-28 19:47:00 2023-02-28 21:02:00 Emergency X LINDA SANFORD [facility] ERT [id number] [facility] 2023-02-28 19:47:00 2023-02-28 21:02:00 Emergency Linda Sanford [facility] 1.2.840.114 350.1.13.10 4.2.7.2.[id number] [facility] 2023-02-13 00:00:00 2023-02-13 00:00:00 Outpatient JOSELINE GOLDBERG [id number] Joseline Bean 2023-01-25 04:35:00 2023-01-25 06:05:00 Emergency X SHAE GILLESPIE [facility] ERT [id number] [facility] 2023-01-25 04:35:00 2023-01-25 06:05:00 Emergency Shae Gillespie [facility] 1.2.840.114 350.1.13.10 4.2.7.2.[id number] [facility] 2023-01-10 21:21:00 2023-01-11 01:38:00 Emergency X IVONNE SHULTZ [facility] ERT [id number] [facility] 2023-01-10 21:21:00 2023-01-11 01:38:00 Emergency Ivonne Shultz [facility] 1.2.840.114 350.1.13.10 4.2.7.2.[id number] [facility] 2022-12-25 09:15:00 2022-12-25 09:15:00 Outpatient KACIE QUIROZ JOSELINE GOLDBERG [id number] [facility] 2022-12-10 00:00:00 2022-12-10 00:00:00 Orders Only Doctor Unassigned, [place] [facility] 1.2.840.114 350.1.13.10 4.2.7.2.[id number] [facility] 2022-12-09 00:00:00 2022-12-09 00:00:00 Orders Only Doctor Unassigned, [place] [facility] 1.2.840.114 350.1.13.10 4.2.7.2.[id number] [facility] 2022-12-04 00:00:00 2022-12-04 00:00:00 Outpatient JOSELINE GOLDBERG [id number] [facility] 2022-12-03 00:00:00 2022-12-03 00:00:00 Outpatient GISELLA LIND [id number] [facility] 2022-12-02 08:34:00 2022-12-02 10:08:00 Emergency X Kayla LIVINGSTON [facility] ERT [id number] [facility] 2022-12-02 08:34:00 2022-12-02 10:08:00 Emergency Kayla Livingston [facility] 1.2.840.114 350.1.13.10 4.2.7.2.[id number] [facility] 2022-11-23 00:00:00 2022-11-23 00:00:00 Outpatient PIPPA REYNOSO [id number] [facility] 2022-11-21 00:00:00 2022-11-21 00:00:00 Outpatient JOSELINE GOLDBERG [id number] Joseline Bean 2022-11-19 19:34:00 2022-11-20 16:45:00 Outpatient X HAYDEN BRASWELL [facility] [id number] [facility] 2022-11-19 19:34:00 2022-11-20 16:45:00 Hospital Encounter Jose Guadalupe Meraz Benjigiovanna mikey [facility] 1.2.840.114 350.1.13.10 4.2.7.2.[id number] [facility] 2022-11-20 13:00:00 2022-11-20 13:00:00 Outpatient GABRIELLA, KACIESonia GOLDBERG [id number] [facility] 2022-11-19 11:30:00 2022-11-19 11:30:00 Outpatient CECIL CHATMAN [id number] [facility] 2022-11-19 00:00:00 2022-11-19 00:00:00 Outpatient PIPPA REYNOSO [id number] [facility] 2022-11-02 00:00:00 2022-11-02 00:00:00 Outpatient JOSELINE GOLDBERG [id number] [facility] 2022-11-02 00:00:00 2022-11-02 00:00:00 Orders Only Doctor Unassigned, [place] [facility] 1.2.840.114 350.1.13.10 4.2.7.2.[id number] [facility] 2022-11-01 00:00:00 2022-11-01 00:00:00 Outpatient JOSELINE GOLDBERG [id number] [facility] 2022-10-22 00:00:00 2022-10-22 00:00:00 Outpatient [facility]NOS[facility] [id number] [facility]22-10-[facility] 00:00:00 2022-10-22 00:00:00 Outpatient JOSELINE GOLDBERG [id number] [facility] 2022-10-18 00:00:00 2022-10-18 00:00:00 Outpatient JOSELINE GOLDBERG [id number] [facility] 2022-10-16 00:00:00 2022-10-16 00:00:00 Outpatient PIPPA REYNOSO JOSELINE [id number] Joseline Bean 2022-10-15 00:00:00 2022-10-15 00:00:00 Outpatient JOHN YIN JOSELINE [id number] Joseline Bean 2022-10-15 00:00:00 2022-10-15 00:00:00 Outpatient JOHN YIN JOSELINE [id number] Joseline Bean 2022-10-11 08:00:00 2022-10-11 08:00:00 Outpatient LAB90 JOSELINE JOSELINE [id number] Joseline Bean 2022-10-11 00:00:00 2022-10-11 00:00:00 Outpatient PIPPA REYNOSO JOSELINE GOLDBERG [id number] Joseline Bean 2022-10-08 00:00:00 2022-10-08 00:00:00 Outpatient PIPPA REYNOSO JOSELINE GOLDBERG [id number] [facility] 2022-10-07 00:00:00 2022-10-07 00:00:00 Outpatient JOSELINE JOSELINE [id number] [facility] 2022-10-07 00:00:00 2022-10-07 00:00:00 Outpatient JOSELINE JOSELINE [id number] [facility] 2022-10-02 00:00:00 2022-10-02 00:00:00 Outpatient PIPPA REYNOSO JOSELINE GOLDBERG [id number] [facility] 2022-09-28 09:34:00 2022-09-28 11:04:00 Emergency X IVONNE SHULTZ [facility] ERT [id number] [facility] 2022-09-28 09:34:00 2022-09-28 11:04:00 Emergency Ivonne Shultz G [facility] 1.2.840.114 350.1.13.10 4.2.7.2.[id number] [facility] 2022-09-28 00:00:00 2022-09-28 00:00:00 Outpatient HUNDPIPPA Trejo JOSELINE GOLDBERG [id number] [facility] 2022-09-25 07:15:00 2022-09-25 09:59:00 Emergency X MARAL GAMBLE [facility] ERT [id number] [facility] 2022-09-25 07:15:00 2022-09-25 09:59:00 Emergency Maral Gamble [facility] 1.2.840.114 350.1.13.10 4.2.7.2.[id number] [facility] 2022-09-11 00:00:00 2022-09-11 00:00:00 Outpatient SAVANAHDarling PIPPA GOLDBERG [id number] [facility] 2022-09-06 14:45:00 2022-09-06 14:45:00 Outpatient LAB90 JOSELINE GOLDBERG [id number] [facility] 2022-09-06 14:00:00 2022-09-06 14:00:00 Outpatient EDGARDO PIPPA JOSELINE GOLDBERG [id number] [facility] 2022-09-06 00:00:00 2022-09-06 00:00:00 Outpatient JOSELINE GOLDBERG [id number] [facility] 2022-08-12 00:00:00 2022-08-12 00:00:00 Outpatient JOSHUAJOHN Davis JOSELINE GOLDBERG [id number] [facility] 2022-08-12 00:00:00 2022-08-12 00:00:00 Outpatient JOSELINE GOLDBERG [id number] [facility] 2022-08-03 20:31:00 2022-08-03 21:56:00 Emergency X KAIN RAJPUT [facility] ERT [id number] [facility] 2022-08-03 20:31:00 2022-08-03 21:56:00 Emergency Kain Rajput [facility] 1.2.840.114 350.1.13.10 4.2.7.2.[id number] [facility] 2022-07-19 11:30:00 2022-07-19 11:30:00 Outpatient JOHN YIN JOSELINE GOLDBERG [id number] [facility] 2022-07-12 14:00:00 2022-07-12 14:00:00 Outpatient GISELLA LIND JOSELINE GOLDBERG [id number] [facility] 2022-07-12 14:00:00 2022-07-12 14:00:00 Outpatient DIOGOGISELLA JOSELINE GOLDBERG [id number] [facility] 2022-07-10 00:00:00 2022-07-10 00:00:00 Outpatient JOHN YIN JOSELINE GOLDBERG [id number] [facility] 2022-06-28 00:00:00 2022-06-28 00:00:00 Outpatient DIOGO GISELLA [facility] [id number] [facility] 2022-06-28 00:00:00 2022-06-28 00:00:00 Outpatient DIOGOHARDEEPGERRY GOLDBERG [id number] [facility] 2022-03-04 15:30:00 2022-03-04 15:30:00 Outpatient DIOGOGISELLA JOSELINE GOLDBERG [id number] [facility] 2022-02-28 14:49:00 2022-02-28 15:41:00 Emergency X IGGY WELLER [facility] ERT [id number] [facility] 2022-02-28 14:49:00 2022-02-28 15:41:00 Emergency Iggy Weller [facility] 1.2.840.114 350.1.13.10 4.2.7.2.[id number] [facility] 2022-02-28 00:00:00 2022-02-28 00:00:00 Outpatient JOHN YIN JOSELINE GOLDBERG [id number] [facility] 2022-02-28 00:00:00 2022-02-28 00:00:00 Outpatient JOSELINE GOLDBERG [id number] [facility] 2022-02-22 15:15:00 2022-02-22 15:15:00 Outpatient MIHAI HAHN JOSELINE GOLDBERG [id number] [facility] 2022-02-13 11:20:00 2022-02-13 12:52:00 Emergency X SOTEROCASTROHARDY [facility] ERT [id number] [facility] 2022-02-13 11:20:00 2022-02-13 12:52:00 Emergency LynnTimurHardy A [facility] 1.2.840.114 350.1.13.10 4.2.7.2.[id number] [facility] 2022-02-13 00:00:00 2022-02-13 00:00:00 Outpatient GISELLA LIND [id number] [facility] 2022-02-13 00:00:00 2022-02-13 00:00:00 Orders Only Doctor Unassigned, [place] [facility] 1.2.840.114 350.1.13.10 4.2.7.2.[id number] [facility] 2021-11-05 00:00:00 2021-11-05 00:00:00 Outpatient GISELLA LIND [id number] [facility] 2021-08-31 03:15:00 2021-08-31 03:15:00 Outpatient HANH GAMA SCPRASAD [facility] [id number] [id number] 2021-06-25 00:00:00 2021-06-25 00:00:00 Outpatient GISELLA LIND [id number] [facility] 2021-06-15 00:00:00 2021-06-15 00:00:00 Outpatient GISELLA LIND [id number] [facility] 2021-04-18 10:30:00 2021-04-18 14:28:00 Emergency X Kayla LIVINGSTON [facility] ERT [id number] [facility] 2021-04-18 10:30:00 2021-04-18 14:28:00 Emergency Kayla Livingston [facility] 1.2.840.114 350.1.13.10 4.2.7.2.[id number] [facility] 2021-04-18 00:00:00 2021-04-18 00:00:00 Outpatient GISELLA LIND [id number] [facility] 2021-03-28 00:00:00 2021-03-28 00:00:00 Outpatient GISELLA LIND [id number] [facility] 2021-03-28 00:00:00 2021-03-28 00:00:00 Outpatient JOSELINE GOLDBERG [id number] [facility] 2021-03-28 00:00:00 2021-03-28 00:00:00 Outpatient JOSELINE GOLDBERG [id number] [facility] 2021-03-16 10:20:00 2021-03-16 10:20:00 Outpatient LAB90 JOSELINE GOLDBERG [id number] [facility] 2021-03-16 09:35:00 2021-03-16 09:35:00 Outpatient LAB90 JOSELINE GOLDBERG [id number] [facility] 2021-03-15 15:15:00 2021-03-15 15:45:00 [facility] [place] 1.2.840.114 350.1.13.13 1.2.7.2.686 [id number] [facility] 2021-03-15 00:00:00 2021-03-15 00:00:00 Outpatient GISELLA LIND [id number] [facility] 2021-03-15 00:00:00 2021-03-15 00:00:00 Outpatient GISELLA LIND [id number] [facility] Results Test Description Test Time Test Comments Results Resul t Comments Source XR KNEE 3 VW RIGHT 2023-05-19 3 22:42:42 XR KNEE 3 VW RIGHT HISTORY: ?right knee pain COMPARISON: ?none available. Findings:The osseous structures are intact. Tricompartmental mild osteoarthrosis.Small knee joint effusion.Mild soft tissue edema. ?No abnormal soft tissue calcification. [facility] (A1C)2022-11-20 10:43:53* Test Item Value Reference Range Interpretation Comme nts HGB A1C (test code = 4548-4) 5.7 % 4.0-5.7 JAY (test code = JAY) Reference RangesNormal: <5.7%Prediabetes: 5.7 - 6.4%Diabetes: > 6.5% Lab Interpretation (test code = 48478-9) Normal [facility] [id number] 06:15:25* Test Item Value Reference Range Interpretation Comme nts FERRITIN (test code = 7054356353) 36.6 ng/mL 18.0-464.0 JAY (test code = JAY) Biotin has been reported to cause a negative bias, interpret results relative to patient's use of biotin. Lab Interpretation (test code = 55469-0) Normal [facility] ResourcesIRON [id number] 05:48:00* Test Item Value Reference Range Interpretation Comme nts IRON (test code = 9600317009) 109 ug/dL 50-160 TIBC (test code = 8974694480) 387 ug/dL 250-410 % FE SAT (test code = 8583856295) 28 % 20-50 Lab Interpretation (test cod e = 13424-1) Normal [facility] ResourcesFREE [id number] 05:10:55* Test Item Value Reference Range Interpretation Comme nts FREE T4 (test code = 6600434817) 1.12 See_Comment [Automated messa ge] The system which generated this result transmitted reference range: 0.78 - 2.20 ng/dL:. The reference range was not used to interpret this result as normal/abnormal. Lab Interpretation (test code = 74049-9) Normal [facility] [place] [facility] ResourcesSEDIMENTATION [id number] 04:03:25* Test Item Value Reference Range Interpretation Comme nts ESR (test code = 01014-8) 2 See_Comment [Automated message] The system which generated this result transmitted reference range: 2 - 30 mm/HR. The reference range was not used to interpret this result as normal/abnormal. Lab Interpretation (test code = 35346-8) Normal [facility] ResourcesN-TERMINAL [id number] 03:50:48* Test Item Value Reference Range Interpretation Comme nts NT-proBNP (test code = 63883-8) <=125 Lab Interpretation (test cod e = 22012-1) Normal [facility] ResourcesTHYROID STIMULATING [id number] 03:15:04 * Test Item Value Reference Range Interpretation Comme nts TSH (test code = 9603585285) 8.65 See_Comment H [Automated messa ge] The system which generated this result transmitted reference range: 0.45 - 4.70 mIU/L. The reference range was not used to interpret this result as normal/abnormal. Lab Interpretation (test code = 09484-5) Abnormal [facility] ResourcesTROPONIN [id number] 02:56:39* Test Item Value Reference Range Interpretation Comme nts TROPONIN I (test code = 3207421595) 0.002 ng/mL <=0.034 JAY (test code = [...] of biotin. Lab Interpretation (test code = 83191-6) Normal [facility] ResourcesBASI METABOLIC PANEL (NA, K, CL, CO2, GLUCOSE, BUN, CREATININE, CA)2022-11-20 02:40:39* Test Item Value Reference Range Interpretation Comme nts NA (test code = 6422675400) 135 mmol/L 135-145 K (test code = 7608498740) 4.1 mmol/L 3.5-5.0 CL (test code = 9066132858) 104 mmol/L 98-108 CO2 TOTAL (test code = 8399620625) 23 mmol/L 23-31 AGAP (test code = 0371557577) 8 2-16 BUN (test code = 6407366351) 14 mg/dL 7-23 GLUCOSE (test code = 8593504046) 100 mg/dL 70-110 CREATININE (test code = 4737262509) 0.67 mg/dL 0.60-1.25 CALCIUM (test code = 3436176701) 9.0 mg/dL 8.6-10.6 eGFR (test code = 9606795523) 139.3 mL/min/1.73m2 JAY (test code = JAY) [...] or urine or abnormalities in imaging tests). [facility] ResourcesHEPATIC FUNCTION PANEL (99951) (ALB,T.PRO,BILI T,BU/BC,ALT,AST,ALK PHOS)2022-11-20 02:40:39* Test Item Value Reference Range Interpretation Comme nts TOTAL BILI (test code = 3609937379) 0.4 mg/dL 0.1-1.1 BILI UNCON (test code = 0367768831) 0.4 mg/dL 0.1-1.1 BILI CONJ (test code = 9440052771) 0.0 mg/dL 0.0-0.3 T PROTEIN (test code = 2043434013) 7.3 g/dL 6.3-8.2 ALBUMIN (test code = 0182090589) 4.6 g/dL 3.5-5.0 ALK PHOS (test code = 0936428011) 42 U/L 34-122 ALTv (test code = 1742-6) 86 U/L 5-50 H AST(SGOT) (test code = 8626185161) 41 U/L 13-40 H Lab Interpretation (test cod e = 64833-2) Abnormal [facility] WITH [id number] 02:33:58* Test Item Value Reference Range Interpretation Comme nts WBC (test code = 6690-2) 9.15 See_Comment [Automated [employer]] The system which generated this result transmitted reference range: 4.20 - 10.70 10*3/?L. The reference range was not used to interpret this result as normal/abnormal. RBC (test code = 789-8) 5.12 See_Comment [Automated [employer]] The system which generated this result transmitted [...] g/dL 31.2-35.0 H RDW-SD (test code = 42526-4) 39.2 fL 38.5-51.6 RDW-CV (test code = 788-0) 12.5 % 12.1-15.4 PLT (test code = 777-3) 220 See_Comment [Automated messa ge] The system which generated this result transmitted reference range: 150 - 328 10*3/?L. The reference range was not used to interpret this result as normal/abnormal. MPV (test code = 21958-7) 11.8 fL 9.8-13.0 NRBC/100 WBC (test code = 6024651400) 0.0 See_Comment [Automated me ssage] The system which generated this result transmitted reference range: 0.0 - 10.0 /100 WBCs. The reference range was not used to interpret this result as normal/abnormal. NRBC x10^3 (test code = 6118939082) See_Comment [Automated messa ge] The system which generated this result transmitted reference range: 10*3/?L. The reference range was not used to interpret this result as normal/abnormal. GRAN MAT (NEUT) % (test code = 770-8) 68.5 % IMM GRAN % (test code = 5200711756) 0.30 % LYMPH % (test code = 736-9) 20.9 % MONO % (test code = 5905-5) 7.5 % EOS % (test code = 713-8) 2.3 % BASO % (test code = 706-2) 0.5 % GRAN MAT x10^3(ANC) (test code = 4247981000) 6.26 10*3/uL 1.99-6.95 IMM GRAN x10^3 (test code = 8128111998) 0.03 10*3/uL 0.00-0.06 LYMPH x10^3 (test code = 731-0) 1.91 10*3/uL 1.09-3.23 MONO x10^3 (test code = 742-7) 0.69 10*3/uL 0.36-1.02 EOS x10^3 (test code = 711-2) 0.21 10*3/uL 0.06-0.53 BASO x10^3 (test code = 704-7) 0.05 10*3/uL 0.01-0.09 Lab Interpretation (test code = 77085-3) [facility]14[facility]2022-[facility]-25 13:24:42* Test Item Value Reference Range Interpretation Comme nts NA (test code = 2642045464) 138 mmol/L 135-145 K (test code = 4515603178) 3.7 mmol/L 3.5-5.0 CL (test code = 8477686610) 102 mmol/L 98-108 CO2 TOTAL (test code = 8632006788) 25 mmol/L 23-31 AGAP (test code = 7987975265) 11 2-16 BUN (test code = 7046491105) 15 mg/dL 7-23 GLUCOSE (test code = 0130883403) 119 mg/dL 70-110 H CREATININE (test code = 2541186739) 0.80 mg/dL 0.60-1.25 TOTAL BILI (test code = 2798749570) 0.5 mg/dL 0.1-1.1 CALCIUM (test code = 5433933725) 8.7 mg/dL 8.6-10.6 T PROTEIN (test code = 2679100768) 7.8 g/dL 6.3-8.2 ALBUMIN (test code = 2317186338) 4.5 g/dL 3.5-5.0 ALK PHOS (test code = 5943826175) 45 U/L 34-122 ALTv (test code = 1742-6) 82 U/L 5-50 H AST(SGOT) (test code = 8847530793) 44 U/L 13-40 H eGFR (test code = 6123594174) 113.5 mL/min/1.73m2 JAY (test code = JAY) [...] imaging tests). Lab Interpretation (test code = 95186-9) Abnormal [facility]2023-[facility]-09 13:24:02* Test Item Value Reference Range Interpretation Comme nts LIPASE (test code = 0092905903) 290 U/L 0-220 H Lab Interpretation (test cod e = 13751-2) Abnormal [facility] WITH [id number] 13:10:59* Test Item Value Reference Range Interpretation Comme nts WBC (test code = 6690-2) 8.31 See_Comment [Automated [employer]] The system which generated this result transmitted reference range: 4.20 - 10.70 10*3/?L. The reference range was not used to interpret this result as normal/abnormal. RBC (test code = 789-8) 5.34 See_Comment [Automated [employer]] The system which generated this result transmitted [...] g/dL 31.2-35.0 H RDW-SD (test code = 17747-2) 38.1 fL 38.5-51.6 L RDW-CV (test code = 788-0) 12.4 % 12.1-15.4 PLT (test code = 777-3) 202 See_Comment [Automated messa ge] The system which generated this result transmitted reference range: 150 - 328 10*3/?L. The reference range was not used to interpret this result as normal/abnormal. MPV (test code = 01701-3) 11.9 fL 9.8-13.0 NRBC/100 WBC (test code = 1838878451) 0.0 See_Comment [Automated [employer] ssage] The system which generated this result transmitted reference range: 0.0 - 10.0 /100 WBCs. The reference range was not used to interpret this result as normal/abnormal. NRBC x10^3 (test code = 9155894564) See_Comment [Automated ICU [employer] ge] The system which generated this result transmitted reference range: 10*3/?L. The reference range was not used to interpret this result as normal/abnormal. GRAN MAT (NEUT) % (test code = 770-8) 70.7 % IMM GRAN % (test code = 8970582299) 0.80 % LYMPH % (test code = 736-9) 18.4 % MONO % (test code = 5905-5) 7.0 % EOS % (test code = 713-8) 2.6 % BASO % (test code = 706-2) 0.5 % GRAN MAT x10^3(ANC) (test code = 1702672122) 5.87 10*3/uL 1.99-6.95 IMM GRAN x10^3 (test code = 3646410856) 0.07 10*3/uL 0.00-0.06 H LYMPH x10^3 (test code = 731-0) 1.53 10*3/uL 1.09-3.23 MONO x10^3 (test code = 742-7) 0.58 10*3/uL 0.36-1.02 EOS x10^3 (test code = 711-2) 0.22 10*3/uL 0.06-0.53 BASO x10^3 (test code = 704-7) 0.04 10*3/uL 0.01-0.09 Lab Interpretation (test code = 77054-0) [facility]normal [facility]:18:55* Test Item Value Reference Range Interpretation Comme nts MAGNESIUM (test code = 8146692291) 1.6 mg/dL 1.7-2.4 L Lab Interpretation (test cod e = 53227-7) Abnormal [facility]OL[facility] PAN[facility] (91617)2021-04-18 18:18:35* Test Item Value Reference Range Interpretation Comme nts NA (test code = 6600617533) 136 mmol/L 135-145 K (test code = 0642607955) 4.6 mmol/L 3.5-5.0 CL (test code = 3176083210) 102 mmol/L 98-108 CO2 TOTAL (test code = 5931222931) 24 mmol/L 23-31 AGAP (test code = 7016844776) 2-16 BUN (test code = 1734915011) 12 mg/dL 7-23 GLUCOSE (test code = 4073458825) 95 mg/dL 70-110 CREATININE (test code = 8542840405) 0.78 mg/dL 0.60-1.25 TOTAL BILI (test code = 9897931836) 0.6 mg/dL 0.1-1.1 CALCIUM (test code = 9274315228) 9.3 mg/dL 8.6-10.6 T PROTEIN (test code = 1934625313) 7.1 g/dL 6.3-8.2 ALBUMIN (test code = 0347766560) 4.6 g/dL 3.5-5.0 ALK PHOS (test code = 8760335643) 54 U/L 34-122 ALTv (test code = 1742-6) 53 U/L 5-50 H AST(SGOT) (test code = 6195764622) 37 U/L 13-40 eGFR (test code = 0378891606) mL/min/1.73m2 JAY (test code = JAY) Association [...] imaging tests). Lab Interpretation (test code = 22752-8) Abnormal [facility] 18:18:35* Test Item Value Reference Range Interpretation Comme nts LIPASE (test code = 8162214366) 49 U/L 0-220 Lab Interpretation (test cod e = 98766-8) Normal [facility] WITH [id number] 18:05:30* Test Item Value Reference Range Interpretation Comme nts WBC (test code = 6690-2) See_Comment H [Automated [employer]] The system which generated this result transmitted reference range: 4.20 - 10.70 10*3/?L. The reference range was not used to interpret this result as normal/abnormal. RBC (test code = 789-8) See_Comment [Automated ICU [employer] Roller] The system which generated this result transmitted [...] 35.0 g/dL 31.2-35.0 RDW-SD (test code = 26745-4) 37.9 fL 38.5-51.6 L RDW-CV (test code = 788-0) 12.5 % 12.1-15.4 PLT (test code = 777-3) See_Comment [Automated messa ge] The system which generated this result transmitted reference range: 150 - 328 10*3/?L. The reference range was not used to interpret this result as normal/abnormal. MPV (test code = 18949-0) 12.1 fL 9.8-13.0 NRBC/100 WBC (test code = 7749740996) See_Comment [Automated [employer] ssage] The system which generated this result transmitted reference range: 0.0 - 10.0 /100 WBCs. The reference range was not used to interpret this result as normal/abnormal. NRBC x10^3 (test code = 7359293118) <0.01 See_Comment [Automated ICU Metrixa ge] The system which generated this result transmitted reference range: 10*3/?L. The reference range was not used to interpret this result as normal/abnormal. GRAN MAT (NEUT) % (test code = 770-8) 72.0 % IMM GRAN % (test code = 9111833866) 0.60 % LYMPH % (test code = 736-9) 19.4 % MONO % (test code = 5905-5) 6.7 % EOS % (test code = 713-8) 1.0 % BASO % (test code = 706-2) 0.3 % GRAN MAT x10^3(ANC) (test code = 1028950850) 8.94 10*3/uL 1.99-6.95 H IMM GRAN x10^3 (test code = 3934157706) 0.08 10*3/uL 0.00-0.06 H LYMPH x10^3 (test code = 731-0) 2.41 10*3/uL 1.09-3.23 MONO x10^3 (test code = 742-7) 0.83 10*3/uL 0.36-1.02 EOS x10^3 (test code = 711-2) 0.13 10*3/uL 0.06-0.53 BASO x10^3 (test code = 704-7) 0.04 10*3/uL 0.01-0.09 Lab Interpretation (test code = 39486-0) Abnormal [facility]"
[2024-03-14] MEDS ORDERED: IBUPROFEN 200 MG TAB PO ONE (23:29)
[2024-03-15 00:48] LABS: SARS-CoV-2 Antigen CONTROL BLUE LINE VIS/BG OK; SARS-CoV-2 Antigen Rapid Res Negative (Negative)
--- NOTE | 2024-03-15 01:05 | EDPHYS ---
Physician Documentation [facility] Name: Angel Osborne Age: 34 yrs Sex: Male : 1990 Arrival Date: 03/14/2024 Time: 23:22 Bed 17 Private MD: ED Physician Abhishek Munoz HPI: 03/14 23:46 This 34 yrs old Male presents to ER via Ambulatory with complaints of Flu Symptoms. ms3 23:46 Angel Osborne is a 34-year-old male presenting to the Emergency Department with flu-like ms3 symptoms that began approximately five days ago, on Friday night. He reports experiencing body aches, chills, fever, headache, sore throat, sneezing, and coughing. He has been feeling miserable and has not been able to work due to these symptoms. There is a mention of being exposed to cold temperatures last week. . Historical: - Allergies: 23:30 No Known Allergies; me1 - PMHx: 23:30 acid reflux; Depression; hemorrhoids; me1 - PSHx: 23:30 Hemorrhoidectomy; me1 - Immunization history:: Adult Immunizations up to date. - Infectious Disease History:: Denies. - Social history:: Smoking status: Reported history of juuling and/or vaping. ROS: 23:46 Neck: Negative for injury, pain, and swelling, Cardiovascular: Negative for chest pain, ms3 and palpitations. 23:46 Abdomen/GI: Negative for abdominal pain, nausea, vomiting, diarrhea, and constipation, MS/Extremity: Negative for injury and deformity, Skin: Negative for injury, rash, and discoloration, 23:46 Constitutional: Positive for body aches, chills, fever, 23:46 Respiratory: Positive for cough, Exam: 23:46 Constitutional: This is a well developed, well nourished patient who is awake, alert, ms3 and in no acute distress. Chest/axilla: Normal chest wall appearance and motion. Nontender with no deformity. 23:46 Abdomen/GI: Soft, non-tender, with normal bowel sounds. No distension or tympany. No guarding or rebound. No evidence of tenderness throughout. Skin: Warm, dry with normal turgor. Normal color with no rashes, no lesions, and no evidence of cellulitis. 23:46 Cardiovascular: Rate: tachycardic, Rhythm: regular, Pulses: no pulse deficits are appreciated, Heart sounds: normal, normal S1and S2, Vital Signs: 00:46 BP 115 / 82; Pulse 81; Resp 19; Pulse Ox 98% ; ay 23:29 BP 133 / 95; Pulse 100; Resp 17; Temp 99.1; Pulse Ox 98% ; Weight 127.01 kg; Height 6 me1 ft. 0 in. ; Pain 8/10; 23:45 BP 131 / 83; Pulse 95; Resp 20; Pulse Ox 98% on R/A; ay 23:29 Body Mass Index 37.97 (127.01 kg, 182.88 cm) me1 23:29 Pain Scale: Adult me1 [place] Coma Score: 23:40 Eye Response: spontaneous(4). Motor Response: obeys commands(6). Verbal Response: ay oriented(5). Total: 15. MDM: 23:35 Medical Screening Exam initiated ms3 23:46 Differential Diagnosis: Influenza Upper Respiratory Infection Viral Syndrome Other ms3 COVID. 03/15 01:06 Data reviewed: vital signs, nurses notes, lab test result(s), and as a result, I will ms3 discharge patient. I considered the following discharge prescriptions or medication management in the emergency department Medications were administered in the Emergency Department. See MAR. Counseling: I had a detailed discussion with the patient and/or guardian regarding the historical points, exam findings, and any diagnostic results supporting the discharge/admit diagnosis, lab results, the need for outpatient follow up, to return to the emergency department if symptoms worsen or persist or if there are any questions or concerns that arise at home. Special discussion: I discussed with the patient/guardian in detail that at this point there is no indication for admission to the hospital. It is understood, however, that if the symptoms persist or worsen the patient needs to return immediately for re-evaluation. ED course: Discussed negative flu and COVID results with patient. Patient states symptoms improved since arrival to the emergency department. Patient is alert and orient x 4, no apparent distress, nontoxic-appearing, ambulatory in emergency department. Patient to follow-up with Dr. Jamil in 2 to 3 days. All questions were answered. Return precautions discussed include worsening symptoms, or any other concerns.. 03/14 23:32 Order name: Flu; Complete Time: 01:00 ms3 03/14 23:32 Order name: LIU RAPID; Complete Time: 01:00 ms3 Administered Medications: 03/14 23:37 Drug: Ibuprofen PO 600 mg PO once Route: PO; me1 03/15 02:10 Follow up: Response: No adverse reaction ay Disposition Summary: 03/15/24 01:05 Discharge Ordered Notes: Location: Home ms3 Condition: Stable ms3 Diagnosis - Acute upper respiratory infection, unspecified ms3 - Elevated blood-pressure reading, without diagnosis of hypertension ms3 Followup: ms3 - With: Rogerio Jamil DO - When: 2 - 3 days - Reason: Recheck today's complaints Discharge Instructions: - Discharge Summary Sheet ms3 - Upper Respiratory Infection, Adult ms3 Forms: - Medication Reconciliation Form ms3 - Antibiotic Education ms3 - Prescription Opioid Use ms3 - Patient Portal Instructions ms3 - Leadership Thank You Letter ms3 Prescriptions: - Tessalon Perles 100 mg Oral Capsule - take 1 capsule ORAL route every 8 hours As needed; 15 capsule; Refills: 0, ms3 Product Selection Permitted Signatures: Dispatcher [employer] Abhishek Manning DO DO ms3 Vanesa Ivy, MAIKOL RN me1 Anatoly Multani RN
--- NOTE | 2024-03-15 01:05 | ER ---
Nurse's Notes [facility] Name: Angel Osborne Age: 34 yrs Sex: Male : 1990 Arrival Date: 03/14/2024 Time: 23:22 Bed 17 Private MD: Diagnosis: Acute upper respiratory infection, unspecified;Elevated blood-pressure reading, without diagnosis of hypertension Presentation: 03/14 23:29 Chief complaint: Patient states: c/o fever, body aches, cough, congestion, ARCOS, sore me1 throat, nausea. Coronavirus screen: Vaccine status: Patient reports receiving the 2nd dose of the covid vaccine. Ebola Screen: No symptoms or risks identified at this time. Initial Sepsis Screen: Does the patient meet any 2 criteria? HR > 90 bpm. Risk Assessment: Do you want to hurt yourself or someone else? Patient reports no desire to harm self or others. Onset of symptoms was March 09, 2024. 23:29 Method Of Arrival: [facility] 23:29 Acuity: MIKE 4 mi1 03/15 02:09 Initial Sepsis Screen: Does the patient have a suspected source of infection? No. ay Patient's initial sepsis screen is negative. Historical: - Allergies: 03/14 23:30 No Known Allergies; me1 - PMHx: 23:30 acid reflux; Depression; hemorrhoids; me1 - PSHx: 23:30 Hemorrhoidectomy; me1 - Immunization history:: Adult Immunizations up to date. - Infectious Disease History:: Denies. - Social history:: Smoking status: Reported history of juuling and/or vaping. Screenin:40 [facility] ED Fall Risk Assessment (Adult) History of falling in the last 3 months, ay including since admission No falls in past 3 months (0 pts) Confusion or Disorientation No (0 pts) Intoxicated or Sedated No (0 pts) Impaired Gait No (0 pts) Mobility Assist Device Used No (0 pt) Altered Elimination No (0 pt) Score/Fall Risk Level 0 - 2 = Low Risk Oriented to surroundings, Maintained a safe environment, Educated pt \T\ family on fall prevention, incl call for assistance when getting out of bed. Abuse screen: Denies threats or abuse. Nutritional screening: No deficits noted. Tuberculosis screening: No symptoms or risk factors identified. Assessment: 23:45 General: Appears in no apparent distress. comfortable, Behavior is calm, cooperative. ay Pain: Denies pain. Neuro: Level of Consciousness is awake, alert, obeys commands, Oriented to person, place, time, situation, Speech is normal. Cardiovascular: Capillary refill < 3 seconds. Respiratory: Airway is patent Respiratory effort is even, unlabored. GI: No signs and/or symptoms were reported involving the gastrointestinal system. : No signs and/or symptoms were reported regarding the genitourinary system. EENT: Reports cough. Derm: No signs and/or symptoms reported regarding the dermatologic system. Vital Signs: 00:46 BP 115 / 82; Pulse 81; Resp 19; Pulse Ox 98% ; ay 23:29 BP 133 / 95; Pulse 100; Resp 17; Temp 99.1; Pulse Ox 98% ; Weight 127.01 kg; Height 6 me1 ft. 0 in. ; Pain 8/10; 23:45 BP 131 / 83; Pulse 95; Resp 20; Pulse Ox 98% on R/A; ay 23:29 Body Mass Index 37.97 (127.01 kg, 182.88 cm) me1 23:29 Pain Scale: Adult me1 [place] Coma Score: 23:40 Eye Response: spontaneous(4). Motor Response: obeys commands(6). Verbal Response: ay oriented(5). Total: 15. ED Course: 23:24 Patient arrived in ED. jj6 23:27 Abhishek Munoz DO is Attending Physician. ms3 23:30 Triage completed. me1 23:30 Arm band placed on Patient placed in waiting room. me1 23:37 COVID swab sent to lab. Flu and/or RSV swab sent to lab. me1 23:40 Allergy band placed. Bed in low position. Call light in reach. Side rails up X2. ay 23:40 No provider procedures requiring assistance completed. Patient did not have IV access ay during this emergency room visit. 03/15 00:28 Anatoly Multani, MAIKOL is Primary Nurse. ay 01:04 Rogerio Jamil DO is Referral Physician. ms3 Administered Medications: 03/14 23:37 Drug: Ibuprofen PO 600 mg PO once Route: PO; me1 03/15 02:10 Follow up: Response: No adverse reaction ay Medication: 03/14 23:40 VIS not applicable for this client. ay Outcome: 03/15 01:05 Discharge ordered by ms3 02:06 Discharged to home ambulatory, ay 02:06 Condition: stable 02:06 Discharge instructions given to Pt left before D/C documents were ready to be signed. 02:09 Patient left the ED. ay Signatures: Abhishek Munoz DO DO ms3 Cora Herron jj6 Vanesa Ivy RN RN mi1 Anatoly Multani RN RN ay
[2024-03-15 07:32] VITALS: TEMP 99.1; O2SAT 98
[2024-03-15 07:34] VITALS: BP 131/83
== END 2024-03-15 02:09 | disposition home or self-care (01) ==
LOC: ER 23:22
DX: J06.9 Acute upper respiratory infection, unspecified (principal); R03.0 Elevated blood-pressure reading, without diagnosis of hypertension; Z11.52 Encounter for screening for COVID-19
CPT/HCPCS: 36415; 87804; 87811; 99283

== ENCOUNTER 2024-03-16 17:40 | Emergency (ER) | payer BC ==
[2024-03-16] MEDS ORDERED: KETOROLAC 30 MG/ML INJ ONE (18:12)
--- NOTE | 2024-03-16 18:23 | RAD REPORT ---
EXAM: Testicular/scrotal ultrasound HISTORY: testicular pain COMPARISON: None TECHNIQUE: Multiplanar grayscale and color Doppler images were obtained in a testicular/scrotal ultra sound. Spectral analysis of the Doppler waveforms of the testicles were performed. FINDINGS: Right testicle: Normal in echogenicity. No focal mass. Normal internal flow. Left testicle: Normal in echogenicity. No focal mass. Normal internal flow. Right epididymis. No epididymal cyst. Normal internal flow. Left epididymis. No epididymal cyst. Normal internal flow. No hydrocele is present. Left varicocele is present. IMPRESSION: 1. Left-sided varicocele. 2. Bilateral testicular blood flow.
[2024-03-16 19:28] LABS: Specific Gravity > 1.030 (1.005-1.030); Sqamous Epithelial <5 /HPF (None Seen); Urine Bacteria None Seen /HPF (<20); Urine Bilirubin NEGATIVE (Negative); Urine Blood Negative (Negative); Urine Clarity Clear (Clear); Urine Color Yellow (Yellow); Urine Crystals Unidentified Few /HPF (None Seen); Urine Culture Reflex Order NOT NEEDED; Urine Glucose NEGATIVE (Negative); Urine Ketones NEGATIVE (Negative); Urine Micro Reflex YN NO BILL MICROSCOPIC; Urine Mucus 3+ /HPF (None Seen); Urine Nitrite NEGATIVE (Negative); Urine Protein 1+ (Negative); Urine RBC <5 /HPF (None Seen); Urine Urobilinogen Normal (Normal); Urine WBC <5 /HPF (<5); Urine pH 5.5 (5.0-7.0)
--- NOTE | 2024-03-16 19:38 | EDPHYS ---
Physician Documentation [facility] Name: Angel Os[facility] Age: 34 yrs Sex: Male : 1990 Arrival Date: 03/16/2024 Time: 17:40 Bed 17 Private MD: ED Physician Matteo Brown HPI: 03/16 18:08 This 34 yrs old Male presents to ER via Ambulatory with complaints of Testicular Pain. rt 18:08 Patient presents to the ED with an acute onset of left-sided testicular pain starting rt about 4 hours prior to arrival. Pain is severe in severity, radiates upwards, denies other acute complaints, no other aggravating or elevating factors.. Historical: - Allergies: 17:51 NKA; ap3 - PMHx: 17:51 acid reflux; Depression; hemorrhoids; ap3 - PSHx: 17:51 Hemorrhoidectomy; ap3 - Immunization history:: Adult Immunizations unknown. - Infectious Disease History:: Denies. - Social history:: Smoking status: Reported history of juuling and/or vaping. - Family history:: not pertinent. ROS: 18:08 Constitutional: Negative for fever, chills, and weight loss, Cardiovascular: Negative rt for chest pain, palpitations, and edema, Respiratory: Negative for shortness of breath, cough, wheezing, and pleuritic chest pain, Abdomen/GI: Negative for abdominal pain, nausea, vomiting, diarrhea, and constipation, Skin: Negative for injury, rash, and discoloration, Neuro: Negative for headache, weakness, numbness, tingling, and seizure, 18:08 : Positive for testicular pain Negative for urinary symptoms, Exam: 18:08 Constitutional: This is a well developed, well nourished patient who is awake, alert, rt and in no acute distress. Head/Face: Normocephalic, atraumatic. Chest/axilla: Normal chest wall appearance and motion. Nontender with no deformity. No lesions are appreciated. Cardiovascular: Regular rate and rhythm with a normal S1 and S2. No gallops, murmurs, or rubs. Normal PMI, no JVD. No pulse deficits. Respiratory: Lungs have equal breath sounds bilaterally, clear to auscultation and percussion. No rales, rhonchi or wheezes noted. No increased work of breathing, no retractions or nasal flaring. Abdomen/GI: Soft, non-tender, with normal bowel sounds. No distension or tympany. No guarding or rebound. No evidence of tenderness throughout. MS/ Extremity: Pulses equal, no cyanosis. Neurovascular intact. Full, normal range of motion. Neuro: Awake and alert, GCS 15, oriented to person, place, time, and situation. Cranial nerves II-XII grossly intact. Motor strength 5/5 in all extremities. Sensory grossly intact. Cerebellar exam normal. Normal gait. 18:08 : Tenderness to the left testicle, right testicle within normal limits, no appreciable scrotal swelling, Vital Signs: 17:49 BP 136 / 102; Pulse 94; Resp 17; Temp 98.2; Pulse Ox 100% ; Weight 127.01 kg; Height 6 ap3 ft. 0 in. ; Pain 10/10; 18:35 BP 139 / 86; Pulse 87; Resp 17 S; Pulse Ox 100% on R/A; ha1 17:49 Body Mass Index 37.97 (127.01 kg, 182.88 cm) ap3 17:49 Pain Scale: Adult ap3 MDM: 17:54 Medical Screening Exam initiated rt 19:52 Differential diagnosis: Torsion, intermittent torsion, epididymitis, UTI. Data rt reviewed: vital signs, nurses notes, lab test result(s), radiologic studies. I considered the following discharge prescriptions or medication management in the emergency department Medications were administered in the Emergency Department. See MAR. Counseling: I had a detailed discussion with the patient and/or guardian regarding the historical points, exam findings, and any diagnostic results supporting the discharge/admit diagnosis, lab results, radiology results, the need for outpatient follow up, Inform patient that he may still have intermittent torsion, instructed to follow-up with urologist as an outpatient he is to return for any worsening symptoms. Patient states that his symptoms have resolved in the emergency department.. Response to treatment: the patient's symptoms have resolved after treatment, the patient's pain is gone. 03/16 17:58 Order name: FIFI; Complete Time: 19:29 rt 03/16 17:58 Order name: Scrotum Testicles; Complete Time: 18:25 rt Administered Medications: 18:25 Drug: Ketorolac IM 30 mg IM once Route: IM; Site: right deltoid; ha1 19:51 Follow up: Response: No adverse reaction; Marked relief of symptoms; Pain is decreased jb4 Disposition Summary: 03/16/24 19:38 Discharge Ordered Notes: Location: Home rt Problem: new rt Symptoms: are resolved rt Condition: Stable rt Diagnosis - Left testicular pain rt Followup: rt - With: Hilario Rowe MD - When: 2 - 3 days - Reason: Discharge Instructions: - Discharge Summary Sheet rt - Testicular Torsion, Adult rt Forms: - Medication Reconciliation Form rt - Antibiotic Education rt - Prescription Opioid Use rt - Patient Portal Instructions rt - Leadership Thank You Letter rt Signatures: Dispatcher [employer] No Pack RN RN ap3 Capri Koehler RN RN ha1 Matteo Brwon MD MD rt Emerson Resendiz RN jb4
--- NOTE | 2024-03-16 19:38 | ER ---
Nurse's Notes [facility] Name: Angel Osborne Age: 34 yrs Sex: Male : 1990 Arrival Date: 03/16/2024 Time: 17:40 Bed 17 Private MD: Diagnosis: Left testicular pain Presentation: 03/16 17:49 Chief complaint: Patient states: he is having left testicular pain that started approx ap3 4 hours ago. it is unkown if it is swollen, but writing tutor reports it is more firm. patient currently reports that his pain is a 10/10 on the pain scale. Coronavirus screen: At this time, the client does not indicate any symptoms associated with coronavirus-19. Ebola Screen: No symptoms or risks identified at this time. Initial Sepsis Screen: Does the patient meet any 2 criteria? HR > 90 bpm. Does the patient have a suspected source of infection? No. Patient's initial sepsis screen is negative. Risk Assessment: Do you want to hurt yourself or someone else? Patient reports no desire to harm self or others. Onset of symptoms was March 16, 2024 at 13:00. 17:49 Method Of Arrival: Ambulatory ap3 17:49 Acuity: MIKE 2 ap3 Triage Assessment: 17:51 General: Appears uncomfortable, Behavior is calm, cooperative, appropriate for age. ap3 Pain: Complains of pain in left testicle Pain radiates to left lower quadrant Pain currently is 10 out of 10 on a pain scale. Neuro: Level of Consciousness is awake, alert, obeys commands, Oriented to person, place, time, situation, Appropriate for age. Cardiovascular: Patient's skin is warm and dry. Respiratory: Reports cough that is Airway is patent Respiratory effort is even, unlabored, Respiratory pattern is regular, symmetrical. Historical: - Allergies: 17:51 NKA; ap3 - PMHx: 17:51 acid reflux; Depression; hemorrhoids; ap3 - PSHx: 17:51 Hemorrhoidectomy; ap3 - Immunization history:: Adult Immunizations unknown. - Infectious Disease History:: Denies. - Social history:: Smoking status: Reported history of juuling and/or vaping. - Family history:: not pertinent. Screenin:52 [facility] ED Fall Risk Assessment (Adult) History of falling in the last 3 months, ap3 including since admission No falls in past 3 months (0 pts) Confusion or Disorientation No (0 pts) Intoxicated or Sedated No (0 pts) Impaired Gait No (0 pts) Mobility Assist Device Used No (0 pt) Altered Elimination No (0 pt) Score/Fall Risk Level 0 - 2 = Low Risk Oriented to surroundings, Maintained a safe environment, Educated pt \T\ family on fall prevention, incl call for assistance when getting out of bed, Assessed \T\ reinforced patient's understanding of fall precautions, Hourly rounding (assess needs \T\ fall precautionary measures) done, Used ambulatory aids as needed (educated on \T\ assisted with), Used gait belt as appropriate. Abuse screen: Denies threats or abuse. Nutritional screening: No deficits noted. Tuberculosis screening: No symptoms or risk factors identified. Assessment: 18:00 General: Appears uncomfortable, Behavior is calm, cooperative. Pain: Complains of pain ha1 in left testicle Pain does not radiate. Pain currently is 5 out of 10 on a pain scale. Quality of pain is described as aching, Pain began suddenly. Neuro: Level of Consciousness is awake, alert, obeys commands, Oriented to person, place, time, situation. Cardiovascular: Capillary refill < 3 seconds Patient's skin is warm and dry. Respiratory: Airway is patent Respiratory effort is even, unlabored, Respiratory pattern is regular, symmetrical. GI: Abdomen is round non-distended, obese. : Reports pain in left testicle, since four hours ago. 18:52 Reassessment: Patient and/or family updated on plan of care and expected duration. Pain ha1 level reassessed. Patient is alert, oriented x 3, equal unlabored respirations, skin warm/dry/pink. 19:49 Reassessment: Patient appears in no apparent distress at this time. Patient and/or jb4 family updated on plan of care and expected duration. Pain level reassessed. Patient is alert, oriented x 3, equal unlabored respirations, skin warm/dry/pink. Vital Signs: 17:49 BP 136 / 102; Pulse 94; Resp 17; Temp 98.2; Pulse Ox 100% ; Weight 127.01 kg; Height 6 ap3 ft. 0 in. ; Pain 10/10; 18:35 BP 139 / 86; Pulse 87; Resp 17 S; Pulse Ox 100% on R/A; ha1 17:49 Body Mass Index 37.97 (127.01 kg, 182.88 cm) ap3 17:49 Pain Scale: Adult ap3 ED Course: 17:42 Patient arrived in ED. mr 17:42 Matteo Brown MD is Attending Physician. rt 17:51 Triage completed. ap3 17:52 Arm band placed on right wrist. ap3 17:52 Patient has correct armband on for positive identification. Bed in low position. Call ha1 light in reach. Side rails up X 1. Adult w/ patient. 17:52 Provided Education on: plan of care . Client placed on continuous cardiac and pulse ha1 oximetry monitoring. NIBP monitoring applied. 18:15 Capri Koehler, RN is Primary Nurse. ha1 18:18 US Scrotum Testicles In Process Unspecified. EDMS 19:38 Hilario Rowe MD is Referral Physician. rt 19:49 No provider procedures requiring assistance completed. Patient did not have IV access jb4 during this emergency room visit. Administered Medications: 18:25 Drug: Ketorolac IM 30 mg IM once Route: IM; Site: right deltoid; ha1 19:51 Follow up: Response: No adverse reaction; Marked relief of symptoms; Pain is decreased jb4 Medication: 18:29 VIS not applicable for this client. ha1 Outcome: 19:38 Discharge ordered by . rt 19:49 Discharged to home ambulatory, jb4 19:49 Condition: stable 19:49 Discharge instructions given to patient, Instructed on discharge instructions, follow up and referral plans. Demonstrated understanding of instructions, follow-up care, 19:52 Patient left the ED. jb4 Signatures: Dispatcher [employer] EDWI [place] Ann Rosa, Reg Reg Emerson Resendiz, RN RN jb4 No Lynch RN RN ap3 Capri Koehler, MAIKOL RN ha1 Matteo Brown MD MD rt
--- OUTSIDE RECORDS SUMMARY | 2024-03-17 02:35 | XMS REPORT | Continuity of Care Document ---
Author Name Unknown Address [address] [facility] Jose Carlos. [address] [place] [address] [facility] thconnect Address [address] [facility]. [address] [place] [address] Care Team Providers Care Area Secretary Name Role Phone Diogo BENDER, Gisella De Paz Primary Care Physician PIPPA REYNOSO Attending Clinician Unavailable ROSY Attending Clinician Unavailable MELIZA BENNETT Attending Clinician Unavailabl e LAB90 Attending Clinician Unavailable MD JESUS Attending Clinician Unavailab JOHN Moser Attending Clinician Unavailable JULIANA BAIRD Attending Clinician Unavailable JULIANA BAIRD Attending Clinician Unavailable Juliana Baird DO Attending Clinician [phone] RADHA HERNANDES Attending Clinician Unavailable WILLIAN PEREZ Attending Clinician Unavailable WILLIAN PEREZ Attending Clinician Unavailable LEEANN MCCOY Attending Clinician Unavailable [facility] Attending Clinician Un available Leeann Gomez Attending Clinician [phone] Unknown, Attending Attending Clinician Unavailab NO Guido Attending Clinician Unavailable No Nur MD Attending Clinician [phone] Kayla LIVINGSTON Attending Clinician Unavailable Darryl Owens MD Attending Clinician [phone] Kayla Scherer Attending Clinician [phone] JENY HAIDER Attending Clinician Unavailable INDIA DICKEY Attending Clinician Unavailab India Small DO Attending Clinician +[phone] GISELLA LIND Attending Clinician Unava ilBANDAR Wills Attending Clinician Unavailable Bandar Richardson DO Attending Clinician + LINDA SANFORD Attending Clinician Unavailab Linda Howard Attending Clinician +[phone] SHAE GILLESPIE Attending Clinician Unavailable Shae Gillespie MD Attending Clinician + IVONNE SHULTZ Attending Clinician Unavailable Ivonne Shultz NP Attending Clinician + KACIE QUIROZ Attending Clinician Unavailable Doctor Unassigned, [place] Attending Clinician U justaailHAYDEN Marshall Attending Clinician Unavailable Jose Guadalupe Meraz MD Attending Clinician [phone] Hayden Braswell MD Attending Clinician [phone] CECIL CHATMAN Attending Clinician Unavailable MARAL GAMLBE Attending Clinician Unavailab Maral Wilson DO Attending Clinician +[phone] KAIN RAJPUT Attending Clinician Unavailable Kain Acosta Attending Clinician + IGGY WELLER Attending Clinician UnavailIggy Hernández Attending Clinician + [phone] MIHAI HAHN Attending Clinician Unavailable HARDY ZAVALA Attending Clinician UnavailHardy Casillas MD Attending Clinician + [phone] PARVEEN Attending Clinician Unavailable Gisella Lind MD Attending Clinician +[phone] INDIA DICKEY Admitting Clinician Unavailab BANDAR Pace Admitting Clinician Unavailable IVONNE SHULTZ Admitting Clinician Unavailable HAYDEN BRASWELL Admitting Clinician Unavailable Hayden Braswell MD Admitting Clinician [phone] PARVEEN Admitting Clinician Unavailable Kayla LIVINGSTON Admitting Clinician Unavailable Payers Payer Name Policy Type Policy Number Effective Date Expirati on Date Source [facility] 9 [id number] 2023 00:00:00 [facility] [id number] 00:00:00 Problems Condition Name Condition Details Condition Category Status Onset Date Resolution Date Last Treatment Date Treating Clinician Comments Source Chest pain Chest pain Disease Active 2022-02 00:00: 00 [facility] Obesity (BMI 30-39.9) Obesity (BMI 30-39.9) Disease Active 2022-02 00:00: 00 [facility] No known active problems No known active problems Disease [facility] Allergies, Adverse Reactions, Alerts Allergy Name Allergy Type Status Severity Reaction(s) Onset Date Inactive Date Treating Clinician Comments Source NO KNOWN ALLERGIE S Drug Class Active [facility] Social History Social Habit Start Date Stop Date Quantity Comments Source Gender identity [facility] Sexual orientation [facility] History of tobacco use Passive smoker [facility] Alcoholic beverage intake 2023-07-12 00:00:00 2023-07-12 00:00:00 Current drinker of alcohol (finding) [facility] Alcohol intake 2023-05-31 00:00:00 2023-05-31 00:00:00 Current drinker of alcohol (finding) [facility] History of Social function 2022-11-20 00:00:00 2022-11-20 00:00:00 [facility] Tobacco use and exposure 2022-11-19 00:00:00 2022-11-19 00:00:00 Smokeless tobacco non-user [facility] Tobacco Comment 2022-11-19 00:00:00 2022-11-19 00:00:00 Patient states that he uses vapes with nicotine in replace of cigarettes [facility] Alcohol Comment 2022-11-19 00:00:00 2022-11-19 00:00:00 socially (once every few months) [facility] Exposure to SARS-CoV-2 (event) 2022-02-18 00:00:00 2022-02-28 15:26:00 Not sure [facility] Sex assigned at 1990 00:00:00 1990 00:00:00 [facility] Smoking Status Start Date Stop Date Source Tobacco smoking consumption unknown [facility] Smokes tobacco daily 2022-09-06 00:00:00 Joseline Bean - External Medications Ordered Medication Name Filled Medication Name Start Date Stop Date Current Medication? Ordering Clinician Indication Dosage Frequency Signature (SIG) Comments Components Source linaCLOtide (Linzess) 145 MCG oral Capsule 09-30 00:00: 00 Yes [id number] 145ug QD Take 1 capsule (145 mcg total) by mouth daily. Joseline trejo hydrocortis one 25 mg suppository 09-30 00:00: 00 Yes [id number] 25mg Insert 1 Suppositor y into rectum in the morning and 1 Suppositor y in the evening. [facility] dibucaine 1 % ointment 09-30 00:00: 00 Yes [id number] Apply to area(s) 3 (three) times daily as needed for Pain (scale 4-6) or Pain (scale 7-10). [facility] Pantoprazol e Sodium 40 MG oral Tablet Delayed Response 09-01 00:00: 00 Yes [id number] 40mg QD take 1 tablet by mouth every day Joseline trejo dexamethaso ne sod phos PF injection 10 mg 08-11 17:30: 00 08-11 17:20 :00 No 10mg 10 mg, Intramuscu lar, ONCE, 1 dose, On Fri08/12/23 at 1230, [address] [facility] ketorolac (TORADOL) injection 30 mg 08-11 17:30: 00 08-11 17:22 :00 No 30mg 30 mg, Intramuscu lar, ONCE, 1 dose, On Fri08/12/23 at 1230, POLA [facility] ibuprofen (IBU) tablet 800 mg 06-28 00:45: 00 06-28 00:34 :00 No 800mg 800 mg, Oral, ONCE, 1 dose, On 06/28/23 at 1945, [facility] rabies immune globulin (PF) (HYPERRAB (PF)) injection 2,481 Units 06-27 23:45: 00 06-27 23:51 :00 No 20U/kg 2,481 Units (rounded from 2,480 Units = 20 Units/kg ?124 kg), Intramuscu lar, ONCE, 1 dose, On 06/28/23 at 1845, Routine [facility] mupirocin 2 % ointment 06-27 00:00: 00 Yes [id number] Apply to area(s) 3 (three) times daily. [facility] HYDROcodone -acetaminop hen (NORCO 5) 5-325 mg tablet 1 tablet 05-30 22:15: 00 05-30 22:36 :00 No 1{tbl} 1 tablet, Oral, ONCE, 1 dose, On 05/31/23 at 1715, [facility] Valacyclovi r HCl (Valtrex) 500 MG oral Tablet 05-23 00:00: 00 09-30 00:00 :00 No [id number] 500mg Q.5D Take 1 tablet (500 mg total) by mouth 2 times daily. Joseline trejo methylPREDN ISolone 4 MG oral Tablet Therapy Pack 05-22 00:00: 00 09-30 00:00 :00 No [id number] 1{lam} Take 1 lam by mouth See Admin Instructio ns Use as directed. Joseline trejo Celecoxib (CeleBREX) 200 MG oral Capsule 05-22 00:00: 00 09-30 00:00 :00 No [id number] 200mg Q.5D Take 1 capsule (200 mg total) by mouth 2 times daily. Joseline trejo Trazodone HCl 150 MG oral Tablet 03-22 00:00: 00 Yes [id number] 150mg QD Take 1 tablet (150 mg total) by mouth nightly. Joseline trejo benzonatate 100 mg capsule 03-18 00:00: 00 Yes [id number] 100mg Take 1 capsule by mouth 3 (three) times daily as needed for Cough. [facility] azithromyci n 250 mg tablet 03-18 00:00: 00 Yes [id number] 250mg Take 1 tablet by mouth in the morning. [facility] methylPREDN ISolone (MEDROL, LAM,) 4 mg tablets 03-18 00:00: 00 Yes [id number] Take by mouth SEE-INSTRU CTIONS. follow package directions [facility] ibuprofen (IBU) tablet 600 mg 03-01 02:00: 00 03-01 01:58 :00 No 600mg 600 mg, Oral, ONCE, 1 dose, On Fri02/28/23 at 2000, POLA [facility] benzonatate 100 mg capsule 02-28 00:00: 00 Yes [id number] 100mg Take 1 capsule by mouth 3 (three) times daily as needed for Cough. [facility] Albuterol HFA 108 (90 Base) MCG/ACT [...] 02-28 00:00: 00 03-06 05:59 :00 No [id number] 4mg Take 1 tablet by mouth every 8 (eight) hours as needed for Nausea and Vomiting (N/V) for up to [address] [facility] cefTRIAXone (ROCEPHIN) injection 500 mg 2022-02 08:30: 00 Yes 500mg 500 mg, Intramuscu lar, Q24H, First dose on 01/11/23 at 0230, Until Discontinu ed, POLA
Re ason for Anti-Infec tive: Empiric Therapy for Suspected Infection< br>Empiric Therapy Site: Urine
D uration of therapy: Once (ED) [facility] acetaminoph en (TYLENOL) tablet 650 mg 2022-02 07:30: 00 01-11 07:32 :00 No 650mg 650 mg, Oral, ONCE, 1 dose, On 01/11/23 at 0130, POLA [facility] Doxycycline Hyclate 100 MG oral Capsule 2022-02 00:00: 00 05-22 00:00 :00 No 100mg Take 1 capsule (100 mg total) by mouth 2 times daily. Joseline trejo ondansetron 4 mg disintegrat ing tablet 2022-02 00:00: 00 02-28 00:00 :00 No [id number] 4mg Take 1 tablet by mouth every 8 (eight) hours as needed for Nausea and Vomiting (N/V). [facility] Pantoprazol e Sodium 40 MG oral Tablet Delayed Response 2022-02 00:00: 00 Yes [id number] 40mg TAKE 1 TABLET BY MOUTH EVERY DAY Joseline trejo sulfur hexafluorid e microsphr (LUMASON) injection 5 mL 2022-02 16:15: 00 11-20 16:15 :00 No [id number] 5mL 5 mL, Intravenou s, ONCE, 1 dose, On Fri11/20/22 at 1115, Routine
parole board member approving Restricted medication : HAYDEN BRASWELL [facility] pantoprazol e (PROTONIX) EC tablet 40 mg 2022-02 0 14:00: 00 Yes 40mg 40 mg, Oral, DAILY, First dose on Fri11/20/22 at 0900, Until Discontinu ed, Routine [facility] sennosides- docusate sodium (SENOKOT-S) 8.6-50 mg per tablet 1 tablet 2022-02 14:00: 00 Yes 1{tbl} 1 tablet, Oral, DAILY, First dose on Fri11/20/22 at 0900, Until Discontinu ed, Routine [facility] HYDROcodone -acetaminop hen (NORCO 5) 5-325 mg tablet 1 tablet 2022-02 03:15: 00 11-20 02:44 :00 No 1{tbl} 1 tablet, Oral, ONCE, 1 dose, On Fri11/19/22 at 2215, Routine [facility] ondansetron (ZOFRAN (PF)) injection 4 mg 2022-02 03:09: 48 Yes 4mg 4 mg, Slow IV Push, Q6HPRN, Nausea and Vomiting (N/V), Starting on Fri11/19/22 at 2209
Do ses of ondansetro n 16 mg and above need to be administer ed via IV piggyback. For Dose >=24mg ECG monitoring is advisable.
[facility] heparin (porcine) injection 5,000 Units 2022-02 03:00: 00 Yes 5000U 5,000 Units, Subcutaneo us, Q8H, First dose on Fri11/19/22 at 2200, Until Discontinu ed, Routine [facility] Lidocaine (LIDOCARE) 4 % patch 1 Patch 2022-02 02:30: 00 11-20 14:44 :00 No 1{patch } 1 Patch, Topical, Administer over 12 Hours, ONCE, 1 dose, On Fri11/19/22 at 2130, Routine [facility] sucralfate (CARAFATE) tablet 1 g 2022-02 0 02:00: 00 Yes 1g 1 g, Oral, AC+HS, First dose on Fri11/19/22 at 2100, Until Discontinu ed, Routine [facility] acetaminoph en (TYLENOL) tablet 650 mg 2022-02 0-04 01:22: 59 Yes 650mg 650 mg, Oral, Q6HPRN, Starting on Fri11/19/22 at 2021, Until Discontinu ed, Routine, Pain (scale 1-3) [facility] sucralfate 1 gram tablet 2022-02 0-04 00:00: 00 12-05 04:59 :00 No [id number] 1g Take 1 tablet by mouth before meals and at bedtime for [address] [facility] Ondansetron (ZOFRAN) 4 MG oral TABLET DISPERSIBLE 2022-02 0-03 00:00: 00 09-30 00:00 :00 No [id number] 4mg [id number] 3D Take 1 tablet (4 mg total) by mouth every 8 hours as needed for nausea. Joseline trejo Pantoprazol e Sodium 40 MG oral Tablet Delayed Response 10-16 00:00: 00 Yes [id number] 40mg TAKE 1 TABLET BY MOUTH EVERY DAY Joseline trejo Metronidazo le 500 MG oral Tablet 10-15 00:00: 00 Yes [id number] 500mg Take 1 tablet (500 mg total) by mouth 2 times daily. Joseline trejo Valacyclovi r HCl (Valtrex) 500 MG oral Tablet 10-15 00:00: 00 Yes [id number] 500mg Take 1 tablet (500 mg total) by mouth 2 times daily. Joseline trejo sulfamethox azole-trime thoprim 800-160 mg per tablet 09-28 00:00: 00 10-06 04:59 :00 No [id number] 1{tbl} Take 1 tablet by mouth every 12 (twelve) hours for [address] [facility] ketorolac (TORADOL) injection 15 mg 09-25 14:45: 00 09-25 13:56 :00 No 15mg 15 mg, Slow IV Push, ONCE, 1 dose, On Fri09/25/22 at 0945, POLA [facility] ondansetron (ZOFRAN (PF)) injection 4 mg 09-25 12:45: 00 09-25 12:43 :00 No 4mg 4 mg, Slow IV Push, ONCE, 1 dose, On Fri09/25/22 at 0745, POLA [facility] maalox:diph enhydrAMINE :lidocaine 2 % viscous 1:1:1 (FIRST-MOUT HWASH BLM) oral suspension 15 mL 09-25 12:45: 00 09-25 12:42 :00 No 15mL 15 mL, Oral, ONCE, 1 dose, On Fri09/25/22 at 0745, Routine [facility] proMETHazin e 25 mg tablet 09-25 00:00: 00 11-20 00:00 :00 No [id number] 25mg Take 1 tablet by mouth every 6 (six) hours as needed for Nausea and Vomiting (N/V). [facility] pantoprazol e 40 mg EC tablet 09-06 00:00: 00 Yes 40mg Take [address] [facility] Hydrocortis one Acetate (Hemmorex-H C) 25 MG rectal Suppository 09-06 00:00: 00 05-21 00:00 :00 No [id number] 25mg Apply 1 suppositor y (25 mg total) rectally 2 times daily Joseline trejo NIFEdipine 0.2 % in Lidocaine 5 % 60 g compounded rectal ointment 09-06 00:00: 00 05-21 00:00 :00 No [id number] Apply 1 applicatio n. rectally 2 times daily (Apply pea-sized amount to fingertip and then apply just inside anus) Joseline trejo Mupirocin (BACTROBAN) 2 % apply externally Ointment 08-04 00:00: 00 09-30 00:00 :00 No [id number] 3D Apply 1 applicatio n. topically 3 times daily Joseline trejo mupirocin 2 % ointment 08-03 00:00: 00 Yes [id number] Apply to area(s) 3 (three) times daily. [facility] cephALEXin (KEFLEX) 500 mg capsule 08-03 00:00: 00 08-11 04:59 :00 No [id number] 500mg Take 1 capsule by mouth 4 (four) times daily for [address] [facility] doxycycline hyclate 100 mg capsule 08-03 00:00: 08-11 04:59 :00 No [id number] 100mg Take 1 capsule by mouth in the morning and 1 capsule in the evening. Do all this for [address] [facility] traZODone 150 mg tablet 06-28 00:00: 00 Yes 150mg Take [address] [facility] meclizine (TRAVEL-EAS E (MECLIZINE) ) tablet 25 mg 02-28 21:15: 00 02-28 21:26 :00 No 25mg 25 mg, Oral, ONCE, 1 dose, On Kimmy 02/28/22 at 1515, POLA [facility] meclizine 25 mg tablet 02-28 00:00: 00 09-28 00:00 :00 No 25mg Take [address] [facility] predniSONE 20 MG oral tablet 02-22 00:00: 00 Yes [id number] 20mg Take 1 tablet (20 mg total) by mouth daily Joseline trejo Ondansetron HCl 4 MG oral Tablet 02-22 00:00: 00 11-19 00:00 :00 No [id number] 4mg [id number] 3D Take 1 tablet (4 mg total) by mouth every 8 hours as needed for nausea Joseline trejo Amoxicillin 500 MG oral Capsule 02-19 00:00: 00 Yes [id number] TAKE 1 CAPSULE BY MOUTH TWICE A DAY IN THE MORNING AND EVENING FOR 10 DAYS Joseline trejo meclizine (TRAVEL-EAS E (MECLIZINE) ) tablet 25 mg 2021-02- 18:00: 00 02-13 18:02 :00 No 25mg 25 mg, Oral, ONCE, 1 dose, On Fri02/13/22 at 1200, POLA [facility] amoxicillin 500 mg capsule 2021-02 00:00: 00 02-24 05:59 :00 No [id number] 500mg Take 1 capsule by mouth in the morning and 1 capsule in the evening. Do all this for [address] [facility] meclizine 25 mg tablet 2021-02 00:00: 00 02-19 05:59 :00 No [id number] 25mg Take 1 tablet by mouth 3 (three) times daily as needed for Dizziness for up to [address] [facility] Trazodone HCl 150 MG oral Tablet 08-02 00:00: 00 Yes 150mg Take 1 tablet (150 mg total) by mouth nightly Joseline Bean - Externa l magnesium sulfate in water 2 gram/50 mL (4 %) infusion 2 g 04-18 20:15: 00 04-18 20:18 :00 No 2g 2 g, IV Piggyback, ONCE, 1 dose, On Fri04/18/21 at 1415, Routine [facility] iopamidol (ISOVUE 370-500 mL) injection 120 mL 04-18 19:15: 00 04-18 17:55 :00 No [id number] 120mL 120 mL, Intravenou s, ONCE, 1 dose, On Fri04/18/21 at 1315, Routine [facility] Trazodone HCl 150 MG oral Tablet [...] Fibroblast Culture (JACINDAT) Unknown Completed [facility] TD Pres-Free Unknown Completed [facility] Human Rabies Vaccine From Chicken Fibroblast Culture (RABAVERT) Unknown Completed [facility] TD Pres-Free Unknown Completed [facility] SARS-COV-2 COVID-19 VACCINE - (MODERNA) Unknown Completed [facility] Human Rabies Vaccine From Chicken Fibroblast Culture (RABAVERT) Unknown Completed [facility] Human Rabies Vaccine From Chicken Fibroblast Culture (RABAVERT) Unknown Completed [facility] TD Pres-Free Unknown Completed [facility] SARS-COV-2 COVID-19 VACCINE - (MODERNA) Unknown Completed [facility] Human Rabies Vaccine From Chicken Fibroblast Culture (RABAVERT) Unknown Completed [facility] Human Rabies Vaccine From Chicken Fibroblast Culture (RABAVERT) Unknown Completed [facility] TD Pres-Free Unknown Completed [facility] SARS-COV-2 COVID-19 VACCINE - (MODERNA) Unknown Completed [facility] Human Rabies Vaccine From Chicken Fibroblast Culture (RABAVERT) Unknown Completed [facility] Human Rabies Vaccine From Chicken Fibroblast Culture (RABAVERT) Unknown Completed [facility] TD Pres-Free Unknown Completed [facility] SARS-COV-2 COVID-19 VACCINE - (MODERNA) Unknown Completed [facility] Human Rabies Vaccine From Chicken Fibroblast Culture (RABAVERT) Unknown Completed [facility] Human Rabies Vaccine From Chicken Fibroblast Culture (RABAVERT) Unknown Completed [facility] TD Pres-Free Unknown Completed [facility] SARS-COV-2 COVID-19 VACCINE - (MODERNA) Unknown Completed [facility] Human Rabies Vaccine From Chicken Fibroblast Culture (RABAVERT) Unknown Completed [facility] Vital Signs Vital Name Observation Time Observation Value Comments S ource Systolic blood pressure 2023-10-01 20:58:00 144 mm[Hg] [facility] Diastolic blood pressure 2023-10-01 20:58:00 89 mm[Hg] [facility] Heart rate 2023-10-01 20:58:00 84 /min [facility] Body temperature 2023-10-01 20:58:00 36.72 Shivani [facility] Respiratory rate 2023-10-01 20:58:00 14 /min [facility] Body height 2023-10-01 20:58:00 182.9 cm [facility] weight 2023-10-01 20:58:00 122.471 kg [facility] BMI 2023-10-01 20:58:00 36.62 kg/m2 [facility] Oxygen saturation in Arterial blood by Pulse oximetry 2023-10-01 20:58:00 99 /min [facility] Systolic blood pressure 2023-10-01 18:36:00 120 [...] Systolic blood pressure 2023-08-12 16:37:00 125 mm[Hg] [facility] Diastolic blood pressure 2023-08-12 16:37:00 92 mm[Hg] [facility] Heart rate 2023-08-12 16:37:00 93 /min [facility] Body temperature 2023-08-12 16:37:00 37 Shivani [facility] Respiratory rate 2023-08-12 16:37:00 18 /min [facility] Body height 2023-08-12 16:37:00 182.9 cm [facility] Body weight 2023-08-12 16:37:00 122.471 kg [facility] BMI 2023-08-12 16:37:00 36.62 kg/m2 [facility] Oxygen saturation in Arterial blood by Pulse oximetry 2023-08-12 16:37:00 96 /min [facility] Systolic blood pressure 2023-07-12 16:23:00 109 mm[Hg] [facility] Diastolic blood pressure 2023-07-12 16:23:00 74 mm[Hg] [facility] Heart rate 2023-07-12 16:23:00 61 /min [facility] Body temperature 2023-07-12 16:23:00 36.78 Shivani [facility] Respiratory rate 2023-07-12 16:23:00 12 /min [facility] Body weight 2023-07-12 16:23:00 122.925 kg [facility] BMI 2023-07-12 16:23:00 36.75 kg/m2 [facility] Oxygen saturation in Arterial blood by Pulse oximetry 2023-07-12 16:23:00 97 /min [facility] Systolic blood pressure 2023-07-05 17:17:00 135 mm[Hg] [facility] Diastolic blood pressure 2023-07-05 17:17:00 82 mm[Hg] [facility] Heart rate 2023-07-05 17:17:00 80 /min [facility] Body temperature 2023-07-05 17:17:00 36.56 Shivani [facility] Respiratory rate 2023-07-05 17:17:00 18 /min [facility] Oxygen saturation in Arterial blood by Pulse oximetry 2023-07-05 17:17:00 100 /min [facility] Systolic blood pressure 2023-07-01 23:15:00 130 mm[Hg] [facility] Diastolic blood pressure 2023-07-01 23:15:00 87 mm[Hg] [facility] Heart rate 2023-07-01 23:15:00 83 /min [facility] Body temperature 2023-07-01 23:15:00 37.33 Shivani [facility] Respiratory rate 2023-07-01 23:15:00 14 /min [facility] Body height 2023-07-01 23:15:00 182.9 cm [facility] Body weight 2023-07-01 23:15:00 123.832 kg [facility] BMI 2023-07-01 23:15:00 37.03 kg/m2 [facility] Oxygen saturation in Arterial blood by Pulse oximetry 2023-07-01 23:15:00 97 /min [facility] Systolic blood pressure 2023-06-29 00:34:00 124 mm[Hg] [facility] Diastolic blood pressure 2023-06-29 00:34:00 85 mm[Hg] [facility] Heart rate 2023-06-29 00:34:00 74 /min [facility] Body temperature 2023-06-29 00:34:00 37.06 Shivani [facility] Oxygen saturation in Arterial blood by Pulse oximetry 2023-06-29 00:34:00 96 /min [facility] Respiratory rate 2023-06-28 23:48:00 14 /min [facility] Body weight 2023-06-28 22:32:00 123.968 kg [facility] BMI 2023-06-28 22:32:00 37.07 kg/m2 [facility] Body height 2023-06-28 21:46:00 182.9 cm [facility] Systolic blood pressure 2023-05-31 22:04:00 145 mm[Hg] [facility] Diastolic blood pressure 2023-05-31 22:04:00 85 mm[Hg] [facility] Heart rate 2023-05-31 22:04:00 84 /min [facility] Body temperature 2023-05-31 22:04:00 36.61 Shivani [facility] Respiratory rate 2023-05-31 22:04:00 16 /min [facility] Body height 2023-05-31 22:04:00 182.9 cm [facility] Body weight 2023-05-31 22:04:00 123.832 kg [facility] BMI 2023-05-31 22:04:00 37.03 kg/m2 [facility] Oxygen saturation in Arterial blood by Pulse oximetry 2023-05-31 22:04:00 99 /min [facility] Systolic blood pressure 2023-05-23 14:15:00 126 [...] Systolic blood pressure 2023-03-18 18:37:00 116 mm[Hg] [facility] Diastolic blood pressure 2023-03-18 18:37:00 80 mm[Hg] [facility] Heart rate 2023-03-18 18:37:00 87 /min [facility] Body temperature 2023-03-18 18:37:00 36.83 Shivani [facility] Respiratory rate 2023-03-18 18:37:00 18 /min [facility] Body weight 2023-03-18 18:37:00 120.203 kg [facility] BMI 2023-03-18 18:37:00 35.94 kg/m2 [facility] Oxygen saturation in Arterial blood by Pulse oximetry 2023-03-18 18:37:00 99 /min [facility] Systolic blood pressure 2023-03-01 01:45:00 141 mm[Hg] [facility] Diastolic blood pressure 2023-03-01 01:45:00 86 mm[Hg] [facility] Heart rate 2023-03-01 01:45:00 92 /min [facility] Body temperature 2023-03-01 01:45:00 37.28 Shivani [facility] Respiratory rate 2023-03-01 01:45:00 16 /min [facility] Body height 2023-03-01 01:45:00 182.9 cm [facility] Body weight 2023-03-01 01:45:00 120.203 kg [facility] BMI 2023-03-01 01:45:00 35.94 kg/m2 [facility] Oxygen saturation in Arterial blood by Pulse oximetry 2023-03-01 01:45:00 100 /min [facility] Systolic blood pressure 2023-01-25 10:30:00 127 mm[Hg] [facility] Diastolic blood pressure 2023-01-25 10:30:00 84 mm[Hg] [facility] Heart rate 2023-01-25 10:30:00 77 /min [facility] Body temperature 2023-01-25 10:30:00 36.67 Shivani [facility] Respiratory rate 2023-01-25 10:30:00 18 /min [facility] Body height 2023-01-25 10:30:00 182.9 cm [facility] Body weight 2023-01-25 10:30:00 120.203 kg [facility] BMI 2023-01-25 10:30:00 35.94 kg/m2 [facility] Oxygen saturation in Arterial blood by Pulse oximetry 2023-01-25 10:30:00 99 /min [facility] Systolic blood pressure 2023-01-11 06:54:00 120 mm[Hg] [facility] Diastolic blood pressure 2023-01-11 06:54:00 69 mm[Hg] [facility] Heart rate 2023-01-11 06:54:00 61 /min [facility] Body temperature 2023-01-11 06:54:00 36.33 Shivani [facility] Oxygen saturation in Arterial blood by Pulse oximetry 2023-01-11 06:54:00 98 /min [facility] Respiratory rate 2023-01-11 03:19:00 18 /min [facility] Body height 2023-01-11 03:19:00 182.9 cm [facility] Body weight 2023-01-11 03:19:00 122.471 kg [facility] BMI 2023-01-11 03:19:00 36.62 kg/m2 [facility] Systolic blood pressure 2022-12-02 13:34:00 126 mm[Hg] [facility] Diastolic blood pressure 2022-12-02 13:34:00 90 mm[Hg] [facility] Heart rate 2022-12-02 13:34:00 77 /min [facility] 2022-12-02 13:34:00 37 Shivani [facility] Respiratory rate 2022-12-02 13:34:00 18 /min [facility] Body height 2022-12-02 13:34:00 182.9 cm [facility] Body weight 2022-12-02 13:34:00 120.203 kg [facility] BMI 2022-12-02 13:34:00 35.94 kg/m2 [facility] Oxygen saturation in Arterial blood by Pulse oximetry 2022-12-02 13:34:00 100 /min [facility] Body height 2022-11-20 20:00:00 182.9 cm [facility] Systolic blood pressure 2022-11-20 16:50:00 124 mm[Hg] [facility] Diastolic blood pressure 2022-11-20 16:50:00 83 mm[Hg] [facility] Heart rate 2022-11-20 16:50:00 61 /min [facility] Body temperature 2022-11-20 16:50:00 36.61 Shivani [facility] Respiratory rate 2022-11-20 16:50:00 20 /min [facility] Oxygen saturation in Arterial blood by Pulse oximetry 2022-11-20 16:50:00 98 /min [facility] Body weight 2022-11-20 01:00:00 122 kg [facility] BMI 2022-11-20 01:00:00 36.48 kg/m2 [facility] Systolic blood pressure 2022-09-28 14:31:00 136 mm[Hg] [facility] Diastolic blood pressure 2022-09-28 14:31:00 97 mm[Hg] [facility] Heart rate 2022-09-28 14:31:00 76 /min [facility] Body temperature 2022-09-28 14:31:00 36.67 Shivani [facility] Respiratory rate 2022-09-28 14:31:00 18 /min [facility] Body height 2022-09-28 14:31:00 182.9 cm [facility] Body weight 2022-09-28 14:31:00 122.018 kg [facility] BMI 2022-09-28 14:31:00 36.48 kg/m2 [facility] Oxygen saturation in Arterial blood by Pulse oximetry 2022-09-28 14:31:00 98 /min [facility] Systolic blood pressure 2022-09-25 14:52:21 125 mm[Hg] [facility] Diastolic blood pressure 2022-09-25 14:52:21 88 mm[Hg] [facility] Heart rate 2022-09-25 14:52:21 72 /min [facility] Body temperature 2022-09-25 14:52:21 36.83 Shivani [facility] Respiratory rate 2022-09-25 14:52:21 16 /min [facility] Oxygen saturation in Arterial blood by Pulse oximetry 2022-09-25 14:52:21 96 /min [facility] Body height 2022-09-25 12:10:00 182.9 cm [facility] [...] External Heart rate 2022-08-04 01:30:00 89 /min [facility] Body temperature 2022-08-04 01:30:00 37.11 Shivani [facility] Respiratory rate 2022-08-04 01:30:00 18 /min [facility] Body height 2022-08-04 01:30:00 175.3 cm [facility] Body weight 2022-08-04 01:30:00 106.595 kg [facility] BMI 2022-08-04 01:30:00 34.70 kg/m2 [facility] Oxygen saturation in Arterial blood by Pulse oximetry 2022-08-04 01:30:00 100 /min [facility] Systolic blood pressure 2022-08-04 01:30:00 146 mm[Hg] [facility] Diastolic blood pressure 2022-08-04 01:30:00 105 mm[Hg] [facility] Systolic blood pressure 2022-07-12 18:18:00 118 [...] - External BMI 2022-03-04 21:25:00 31.87 kg/m2 eMlly ey Seybold - External Systolic blood pressure 2022-02-28 20:48:00 139 mm[Hg] [facility] Diastolic blood pressure 2022-02-28 20:48:00 92 mm[Hg] [facility] Heart rate 2022-02-28 20:48:00 78 /min [facility] Body temperature 2022-02-28 20:48:00 36.89 Shivani [facility] Respiratory rate 2022-02-28 20:48:00 22 /min [facility] Body height 2022-02-28 20:48:00 182.9 cm [facility] Body weight 2022-02-28 20:48:00 106.595 kg [facility] BMI 2022-02-28 20:48:00 31.87 kg/m2 [facility] Oxygen saturation in Arterial blood by Pulse oximetry 2022-02-28 20:48:00 99 /min [facility] Systolic blood pressure 2022-02-13 17:19:00 146 mm[Hg] [facility] Diastolic blood pressure 2022-02-13 17:19:00 85 mm[Hg] [facility] Heart rate 2022-02-13 17:19:00 90 /min [facility] Body temperature 2022-02-13 17:19:00 36.61 Shivani [facility] Respiratory rate 2022-02-13 17:19:00 16 /min [facility] Body height 2022-02-13 17:19:00 182.9 cm [facility] Body weight 2022-02-13 17:19:00 106.595 kg [facility] BMI 2022-02-13 17:19:00 31.87 kg/m2 [facility] Oxygen saturation in Arterial blood by Pulse oximetry 2022-02-13 17:19:00 100 /min [facility] Systolic blood pressure 2021-04-18 20:00:00 119 mm[Hg] [facility] Diastolic blood pressure 2021-04-18 20:00:00 72 mm[Hg] [facility] Heart rate 2021-04-18 20:00:00 72 /min [facility] Respiratory rate 2021-04-18 20:00:00 21 /min [facility] Oxygen saturation in Arterial blood by Pulse oximetry 2021-04-18 20:00:00 97 /min [facility] Body temperature 2021-04-18 16:29:00 36.44 Shivani [facility] Body height 2021-04-18 16:29:00 182.9 cm [facility] Body weight 2021-04-18 16:29:00 107.956 kg [facility] BMI 2021-04-18 16:29:00 32.28 kg/m2 [facility] [...] [place] Body temperature 2021-03-15 20:55:00 36.72 Shivani oJseline Bean Oxygen saturation in Arterial blood by Pulse oximetry 2021-03-15 20:55:00 98 /min Joseline Kohlio mahendra Procedures Procedure Date / Time Performed Performing Clinician Source RABIES VACCINE, IM 2023-07-12 16:29:39 Doctor Un assigned, [place] [facility] RABIES VACCINE, IM 2023-07-01 23:31:31 [facility] RIGHT 2023-05-31 22:39:24 Aimee Dickey [facility] ASSIGNMENT OF BENEFITS 2023-03-18 19:32:42 Docto r Unassigned, [place] [facility] CONSENT/REFUSAL FOR DIAGNOSIS AND TREATMENT 2023-03-18 18:28:03 Doctor Unassigned, [place] [facility] RAPID STREP SCREEN FOR GROUP A 2023-03-01 01:55:00 Linda Sanford [facility] RAPID INFLUENZA A/B 2023-03-01 01:55:00 Linda Sanford [facility] COVID-19 (ID NOW RAPID TESTING) 2023-03-01 01:55:00 Linda Sanford [facility] CONSENT/REFUSAL FOR DIAGNOSIS AND TREATMENT 2023-03-01 01:37:40 Doctor Unassigned, [place] [facility] RAPID STREP SCREEN FOR GROUP A 2023-01-25 10:33:00 Shae Gillespie [facility] CONSENT/REFUSAL FOR DIAGNOSIS AND TREATMENT 2023-01-25 10:18:08 Doctor Unassigned, [place] [facility] US TESTICULAR TORSION 2023-01-11 06:06:00 Joey Shultz [facility] URINALYSIS 2023-01-11 04:00:00 Ivonne Shultz [facility] CONSENT/REFUSAL FOR DIAGNOSIS AND TREATMENT 2023-01-11 03:07:43 Doctor Unassigned, [place] [facility] INSURANCE CORRESPONDENCE 2022-12-10 05:01:00 Doc tor Unassigned, [place] [facility] REFERRAL- REQUEST/RESPONSE 2022-12-09 05:01:00 Doctor Unassigned, [place] [facility] CONSENT/REFUSAL FOR DIAGNOSIS AND TREATMENT 2022-12-02 13:22:20 Doctor Unassigned, [place] [facility] TRANSTHORACIC ECHO (TTE) COMPLETE W/ CONTRAST 2022-11-20 16:09:18 Jus [facility] TROPONIN I 2022-11-20 13:52:00 Chanel Melendez petacaverónica [facility] C-REACTIVE PROTEIN 2022-11-20 07:13:00 Al Tate [facility] TROPONIN I 2022-11-20 07:13:[address] [facility] LIPID PANEL (40250)(TOTAL CHOLESTEROL, TRIGLYCERIDES, HDL) 2022-11-20 07:13:00 Lea Melendez [facility] FERRITIN SERUM 2022-11-20 02:14:00 [facility] TROPONIN I 2022-11-20 02:14:00 Al [facility] keyawiverónica [facility] FREE T4 2022-11-20 02:14:00 [facility] THYROID STIMULATING HORMONE 2022-11-20 02:14:00 Al Tate [facility] HEPATIC FUNCTION PANEL (76434) (ALB,T.PRO,BILI T,BU/BC,ALT,AST,ALK PHOS) 2022-11-20 02:14:00 Lea Melendez [facility] BASIC METABOLIC PANEL (NA, K, CL, CO2, GLUCOSE, BUN, CREATININE, CA) 2022-11-20 02:14:00 Lea Melendez Joseph [facility] IRON PANEL 2022-11-20 02:14:00 Chanel Melendez petacaverónica [facility] SEDIMENTATION RATE 2022-11-20 02:14:00 Tobias Melendezhammad [facility] CBC WITH DIFF 2022-11-20 02:14:00 Chanel Melendez petacaverónica [facility] GLYCOSYLATED HEMOGLOBIN (A1C) 2022-11-20 02:14:00 Al [facility] N-TERMINAL PRO-BNP 2022-11-20 02:14:00 Al Tate [facility] XR CHEST 1 VW 2022-11-20 02:08:[address] [facility] EXTRA TUBE LT. GREEN 2022-11-20 02:05:00 Wilfredo Braswell [facility] INSURANCE CORRESPONDENCE 2022-11-02 05:01:00 Doc tor Unassigned, [place] [facility] US TESTICULAR TORSION 2022-09-28 15:35:02 Joey Shultz [facility] URINALYSIS 2022-09-28 14:52:00 Ivonne Shultz [facility] CONSENT/REFUSAL FOR DIAGNOSIS AND TREATMENT 2022-09-28 14:27:23 Doctor Unassigned, [place] [facility] LIPASE 2022-09-25 12:43:00 Maral Gamble [facility] COMP. METABOLIC PANEL (40631) 2022-09-25 12:43:00 Maral Gamble [facility] CBC WITH DIFF 2022-09-25 12:43:00 Maral Gamble [facility] CONSENT/REFUSAL FOR DIAGNOSIS AND TREATMENT 2022-09-25 12:03:13 Doctor Unassigned, [place] [facility] URINALYSIS 2022-08-04 01:52:00 Kain Rajput [facility] NOTICE OF PRIVACY PRACTICES 2022-08-04 01:24:37 Doctor Unassigned, [place] [facility] CONSENT/REFUSAL FOR DIAGNOSIS AND TREATMENT 2022-08-04 01:24:12 Doctor Unassigned, [place] [facility] CONSENT/REFUSAL FOR DIAGNOSIS AND TREATMENT 2022-02-28 20:35:39 Doctor Unassigned, [place] [facility] RAPID STREP SCREEN FOR GROUP A 2022-02-13 18:03:00 Hardy Zavala [facility] RAPID INFLUENZA A/B 2022-02-13 18:03:00 Dinesh Zavala [facility] COVID-19 (ID NOW RAPID TESTING) 2022-02-13 18:03:00 Hardy Zavala [facility] CONSENT/REFUSAL FOR DIAGNOSIS AND TREATMENT 2022-02-13 17:16:02 Doctor Unassigned, [place] [facility] CT ABDOMEN PELVIS W CONTRAST 2021-04-18 18:02:33 Kayla Livingston [facility] LIPASE 2021-04-18 17:19:00 Kayla Livingston [facility] MAGNESIUM 2021-04-18 17:19:00 Kayla Livingston [facility] COMP. METABOLIC PANEL (20771) 2021-04-18 17:19:00 Kayla Livingston [facility] CBC WITH DIFF 2021-04-18 17:19:00 [facility] 2021-04-18 17:19:00 Kayla Livingston [facility] NOTICE OF PRIVACY PRACTICES 2021-04-18 16:02:42 Doctor Unassigned, [place] [facility] Encounters Start Date/Time End Date/Time Encounter Type Admission Type Attending [facility] Care Facility Care Department Encounter ID Source 2024-02-29 00:00:00 2024-02-29 00:00:00 Outpatient PIPPA REYNOSO [id number] Joseline Seybcami 2024-02-20 00:00:00 2024-02-20 00:00:00 Outpatient ROSY JOSELINE GOLDBERG [id number] Joseline Seybcami 2024-02-19 00:00:00 2024-02-19 00:00:00 Outpatient ROSY JOSELINE [facility]DBER[facility] [id number] [facility] 2024-01-28 00:00:00 2024-01-28 00:00:00 Outpatient SAVANAHDarling PIPPA JOSELINE GOLDBERG [id number] [facility] 2024-01-19 00:00:00 2024-01-19 00:00:00 Outpatient EDGARDO PIPPA GOLDBERG [id number] [facility] 2023-12-19 00:00:00 2023-12-19 00:00:00 Outpatient JOSELINE GOLDBERG [id number] [facility] 2023-12-10 09:00:00 2023-12-10 09:00:00 Outpatient MELIZA BENNETT [id number] [facility] 2023-11-30 00:00:00 2023-11-30 00:00:00 Outpatient EDGARDO PIPPA JOSELINE GOLDBERG [id number] [facility] 2023-10-24 00:00:00 2023-10-24 00:00:00 Outpatient JOSELINE GOLDBERG [id number] [facility] 2023-10-23 13:50:00 2023-10-23 13:50:00 Outpatient LAB90 JOSELINE GOLDBERG [id number] [facility] 2023-10-23 00:00:00 2023-10-23 00:00:00 Outpatient PIPPA REYNOSO [id number] Joseline Seybold 2023-10-17 00:00:00 2023-10-17 00:00:00 Outpatient MD JOSELINE MATHIAS [id number] Joseline Seybcami 2023-10-17 00:00:00 2023-10-17 00:00:00 Outpatient MD JOSELINE MATHIAS [id number] Joseline Seybcami 2023-10-15 00:00:00 2023-10-15 00:00:00 Outpatient JOHN YIN JOSELINE GOLDBERG [id number] Joseline [facility] 2023-10-06 00:00:00 2023-10-06 00:00:00 Outpatient JOSELINE GOLDBERG [id number] Joseline [facility] 2023-10-03 00:00:00 2023-10-03 00:00:00 Outpatient JOSELINE GOLDBERG [id number] Joseline [facility] 2023-10-02 00:00:00 2023-10-02 00:00:00 Outpatient EDGARDO PIPPA GOLDBERG [id number] Joseline [facility] 2023-10-01 15:59:00 2023-10-01 17:11:00 Emergency JULIANA BARRY TIMOTHY [facility] [id number] [facility] 2023-10-01 15:59:00 2023-10-01 17:11:00 Emergency Juliana Baird AT [facility] 1.2.840.114 350.1.13.10 4.2.7.2.[id number] [facility] 2023-10-01 14:45:00 2023-10-01 14:45:00 Outpatient LAB90 JOSELINE GOLDBERG [id number] Joseline [facility] 2023-10-01 14:00:00 2023-10-01 14:00:00 Outpatient EDGARDO PIPPA GOLDBERG [id number] Joseline [facility] 2023-10-01 00:00:00 2023-10-01 00:00:00 Outpatient CECILIORADHA SALVADOR JOSELINE GOLDBERG [id number] Joseline [facility] 2023-10-01 00:00:00 2023-10-01 00:00:00 Outpatient JOSELINE GOLDBERG [id number] Joseline [facility] 2023-09-02 00:00:00 2023-09-02 00:00:00 Outpatient EDGARDO PIPPA GOLDBERG [id number] Joseline [facility] 2023-08-12 11:39:00 2023-08-12 12:41:00 Emergency X JAYESWILLIAN JULIO [facility] [id number] [facility] 2023-08-12 11:39:00 2023-08-12 12:41:00 Emergency Magdaleno Perezio C [facility] 1.84.114 350.1.13.10 4.2.7.2.[id number] [facility] 2023-07-12 11:15:00 2023-07-12 11:40:51 Outpatient R LEEANN MCCOY [facility] [id number] [facility] 2023-07-12 11:15:00 2023-07-12 11:35:00 Nurse [facility] Michaelvin [facility] 1.840.114 350.1.13.10 4.2.7.2.[id number] [facility] 2023-07-05 12:00:00 2023-07-05 12:57:22 Outpatient R MICHAELLEEANN JEFFERY [facility] [id number] [facility] 2023-07-05 12:00:00 2023-07-05 12:20:00 Nurse Visit [facility] Unknown, Attending [facility] 1.840.114 350.1.13.10 4.2.7.2.[id number] [facility] 2023-07-01 18:00:00 2023-07-01 18:54:27 Outpatient R NO NUR [facility] [id number] [facility] 2023-07-01 18:00:00 2023-07-01 18:20:00 Urgent Care No Nur Unknown, Attending [facility] 1.840.114 350.1.13.10 4.2.7.2.[id number] [facility] 2023-06-28 16:49:00 2023-06-28 20:22:00 Emergency X YARA Kayla [facility] [id number] [facility] 2023-06-28 16:49:00 2023-06-28 20:22:00 Emergency Darryl Owens YaraKayla Asiya [facility] 1.2.840.114 350.1.13.10 4.2.7.2.[id number] [facility] 2023-06-23 00:00:00 2023-06-23 00:00:00 Outpatient JOSELINE GOLDBERG [id number] Jos[facility] 2023-06-23 00:00:00 2023-06-23 00:00:00 Outpatient JOSELINE GOLDBERG [id number] [facility] 2023-06-16 00:00:00 2023-06-16 00:00:00 Outpatient PIPPA REYNOSO [id number] [facility] 2023-06-15 00:00:00 2023-06-15 00:00:00 Outpatient PIPPA REYNOSO [id number] Joseline [facility] 2023-06-13 13:45:00 2023-06-13 13:45:00 Outpatient JENY HAIDER [id number] [facility] 2023-06-05 00:00:00 2023-06-05 00:00:00 Outpatient JENY HAIDER [id number] [facility] 2023-06-02 00:00:00 2023-06-02 00:00:00 Outpatient PIPPA REYNOSO [id number] [facility] 2023-06-02 00:00:00 2023-06-02 00:00:00 Outpatient JOSELINE GOLDBERG [id number] [facility] 2023-06-02 00:00:00 2023-06-02 00:00:00 Outpatient PIPPA REYNOSO [id number] [facility] 2023-05-31 17:06:00 2023-05-31 18:29:00 Emergency X INDIA DICKEY [facility] [id number] [facility] 2023-05-31 17:06:00 2023-05-31 18:29:00 Emergency India Dickey [facility] 1.2.840.114 350.1.13.10 4.2.7.2.[id number] [facility] 2023-05-28 00:00:00 2023-05-28 00:00:00 Outpatient EDGARDO PIPPA GOLDBERG [id number] Joseline [facility] 2023-05-28 00:00:00 2023-05-28 00:00:00 Outpatient EDGARDO PIPPA GOLDBERG [id number] [facility] 2023-05-28 00:00:00 2023-05-28 00:00:00 Outpatient PIPPA REYNOSO [id number] [facility] 2023-05-23 09:30:00 2023-05-23 09:30:00 Outpatient EDGARDO PIPPA GOLDBERG [id number] [facility] 2023-05-23 00:00:00 2023-05-23 00:00:00 Outpatient EDGARDO PIPPA GOLDBERG [id number] [facility] 2023-03-25 00:00:00 2023-03-25 00:00:00 Outpatient GISELLA LIND [id number] [facility] 2023-03-25 00:00:00 2023-03-25 00:00:00 Outpatient GISELLA LIND [id number] [facility] 2023-03-25 00:00:00 2023-03-25 00:00:00 Outpatient JOSELINE GOLDBERG [id number] [facility] 2023-03-19 00:00:00 2023-03-19 00:00:00 Outpatient GISELLA LIND [id number] [facility] 2023-03-18 12:37:00 2023-03-18 13:38:00 Emergency X BANDAR RICHARDSON [facility] [id number] [facility] 2023-03-18 12:37:00 2023-03-18 13:38:00 Emergency Bandar Richardson [facility] 1.2.840.114 350.1.13.10 4.2.7.2.[id number] [facility] 2023-02-28 19:47:00 2023-02-28 21:02:00 Emergency X LINDA SANFORD [facility] [id number] [facility] 2023-02-28 19:47:00 2023-02-28 21:02:00 Emergency Linda Sanford [facility] 1.2.840.114 350.1.13.10 4.2.7.2.[id number] [facility] 2023-02-13 00:00:00 2023-02-13 00:00:00 Outpatient JOSELINE GOLDBERG [id number] Joseline Bean 2023-01-25 04:35:00 2023-01-25 06:05:00 Emergency X SHAE GILLESPIE [facility]RT [id number] [facility] 2023-01-25 04:35:00 2023-01-25 06:05:00 Emergency Shae Gillespie [facility] 1.2.840.114 350.1.13.10 4.2.7.2.[id number] [facility] 2023-01-10 21:21:00 2023-01-11 01:38:00 Emergency X IVONNE SHULTZ [facility] [id number] [facility] 2023-01-10 21:21:00 2023-01-11 01:38:00 Emergency Ivonne Shultz [facility] 1.2.840.114 350.1.13.10 4.2.7.2.[id number] [facility] 2022-12-25 09:15:00 2022-12-25 09:15:00 Outpatient KACIE QUIROZ JOSELINE GOLDBERG [id number] [facility] 2022-12-10 00:00:00 2022-12-10 00:00:00 Orders Only Doctor Unassigned, [place] [facility] 1.2.840.114 350.1.13.10 4.2.7.2.[id number] [facility] 2022-12-09 00:00:00 2022-12-09 00:00:00 Orders Only Doctor Unassigned, [place] [facility] 1.2.840.114 350.1.13.10 4.2.7.2.[id number] [facility] 2022-12-04 00:00:00 2022-12-04 00:00:00 Outpatient JOSELINE GOLDBERG [id number] [facility] 2022-12-03 00:00:00 2022-12-03 00:00:00 Outpatient GISELLA LIND [id number] [facility] 2022-12-02 08:34:00 2022-12-02 10:08:00 Emergency X Kayla LIVINGSTON [facility]RT [id number] [facility] 2022-12-02 08:34:00 2022-12-02 10:08:00 Emergency Kayla Livingston [facility] 1.2.840.114 350.1.13.10 4.2.7.2.[id number] [facility] 2022-11-23 00:00:00 2022-11-23 00:00:00 Outpatient PIPPA REYNOSO [id number] [facility] 2022-11-21 00:00:00 2022-11-21 00:00:00 Outpatient JOSELINE GOLDBERG [id number] Joseline Bean 2022-11-19 19:34:00 2022-11-20 16:45:00 Outpatient X [facility] [id number] [facility] 2022-11-19 19:34:00 2022-11-20 16:45:00 Hospital Encounter Jose Guadalupe Meraz Benjigiovanna mikey [facility] 1.2.840.114 350.1.13.10 4.2.7.2.[id number] [facility] 2022-11-20 13:00:00 2022-11-20 13:00:00 Outpatient GABRIELLA, KACIESonia GOLDBERG [id number] Joseline [facility] 2022-11-19 11:30:00 2022-11-19 11:30:00 Outpatient CECIL CHATMAN [id number] [facility] 2022-11-19 00:00:00 2022-11-19 00:00:00 Outpatient PIPPA REYNOSO [id number] [facility] 2022-11-02 00:00:00 2022-11-02 00:00:00 Outpatient JOSELINE GOLDBERG [id number] [facility] 2022-11-02 00:00:00 2022-11-02 00:00:00 Orders Only Doctor Unassigned, [place] [facility] 1.2.840.114 350.1.13.10 4.2.7.2.[id number] [facility] 2022-11-01 00:00:00 2022-11-01 00:00:00 Outpatient JOSELINE GOLDBERG [id number] Joseline [facility] 2022-10-22 00:00:00 2022-10-22 00:00:00 Outpatient PIPPA [facility]YNOSO [id number] [facility]22-10-22 00:00:00 2022-10-22 00:00:00 Outpatient JOSELINE GOLDBERG [id number] Joseline [facility] 2022-10-18 00:00:00 2022-10-18 00:00:00 Outpatient JOSELINE GOLDBERG [id number] [facility] 2022-10-16 00:00:00 2022-10-16 00:00:00 Outpatient PIPPA REYNOSO JOSELINE [id number] Joseline Bean 2022-10-15 00:00:00 2022-10-15 00:00:00 Outpatient JOHN YIN JOSELINE [id number] Joseline Bean 2022-10-15 00:00:00 2022-10-15 00:00:00 Outpatient JOHN YIN JOSELINE [id number] Joseline Bean 2022-10-11 08:00:00 2022-10-11 08:00:00 Outpatient LAB90 JOSELINE JOSELINE [id number] Joseline Bean 2022-10-11 00:00:00 2022-10-11 00:00:00 Outpatient PIPPA REYNOSO JOSELINE GOLDBERG [id number] Joseline Bean 2022-10-08 00:00:00 2022-10-08 00:00:00 Outpatient PIPPA REYNOSO JOSELINE GOLDBERG [id number] Joseline [facility] 2022-10-07 00:00:00 2022-10-07 00:00:00 Outpatient JOSELINE JOSELINE [id number] Joseline [facility] 2022-10-07 00:00:00 2022-10-07 00:00:00 Outpatient JOSELINE JOSELINE [id number] [facility] 2022-10-02 00:00:00 2022-10-02 00:00:00 Outpatient PIPPA REYNOSO JOSELINE GOLDBERG [id number] Joseline [facility] 2022-09-28 09:34:00 2022-09-28 11:04:00 Emergency X IVONNE SHULTZ [facility] [id number] [facility] 2022-09-28 09:34:00 2022-09-28 11:04:00 Emergency Ivonne Shultz G [facility] 1.2.840.114 350.1.13.10 4.2.7.2.[id number] [facility] 2022-09-28 00:00:00 2022-09-28 00:00:00 Outpatient HUNDPIPPA Trejo JOSELINE GOLDBERG [id number] Joseline [facility] 2022-09-25 07:15:00 2022-09-25 09:59:00 Emergency X MARAL GAMBLE [facility] [id number] [facility] 2022-09-25 07:15:00 2022-09-25 09:59:00 Emergency Maarl Gamble [facility] 1.2.840.114 350.1.13.10 4.2.7.2.[id number] [facility] 2022-09-11 00:00:00 2022-09-11 00:00:00 Outpatient SAVANAHDarling PIPPA GOLDBERG [id number] Joseline [facility] 2022-09-06 14:45:00 2022-09-06 14:45:00 Outpatient LAB90 JOSELINE GOLDBERG [id number] [facility] 2022-09-06 14:00:00 2022-09-06 14:00:00 Outpatient EDGARDO PIPPA JOSELINE GOLDBERG [id number] [facility] 2022-09-06 00:00:00 2022-09-06 00:00:00 Outpatient JOSELINE GOLDBERG [id number] [facility] 2022-08-12 00:00:00 2022-08-12 00:00:00 Outpatient JOSHUAJOHN Davis JOSELINE GOLDBERG [id number] [facility] 2022-08-12 00:00:00 2022-08-12 00:00:00 Outpatient JOSELINE GOLDBERG [id number] [facility] 2022-08-03 20:31:00 2022-08-03 21:56:00 Emergency X KAIN RAJPUT [facility] [id number] [facility] 2022-08-03 20:31:00 2022-08-03 21:56:00 Emergency Kain Rajput [facility] 1.2.840.114 350.1.13.10 4.2.7.2.[id number] [facility] 2022-07-19 11:30:00 2022-07-19 11:30:00 Outpatient JOHN YIN JOSELINE GOLDBERG [id number] Joseline [facility] 2022-07-12 14:00:00 2022-07-12 14:00:00 Outpatient GISELLA LIND JOSELINE GOLDBERG [id number] [facility] 2022-07-12 14:00:00 2022-07-12 14:00:00 Outpatient DIOGOGISELLA JOSELINE GOLDBERG [id number] [facility] 2022-07-10 00:00:00 2022-07-10 00:00:00 Outpatient JOHN YIN JOSELINE GOLDBERG [id number] [facility] 2022-06-28 00:00:00 2022-06-28 00:00:00 Outpatient DIOGO GISELLA [facility]DBERG [id number] [facility] 2022-06-28 00:00:00 2022-06-28 00:00:00 Outpatient DIOGOHARDEEPGERRY GOLDBERG [id number] [facility] 2022-03-04 15:30:00 2022-03-04 15:30:00 Outpatient DIOGOGISELLA JOSELINE GOLDBERG [id number] [facility] 2022-02-28 14:49:00 2022-02-28 15:41:00 Emergency X IGGY WELLER [facility] [id number] [facility] 2022-02-28 14:49:00 2022-02-28 15:41:00 Emergency Iggy Weller [facility] 1.2.840.114 350.1.13.10 4.2.7.2.[id number] [facility] 2022-02-28 00:00:00 2022-02-28 00:00:00 Outpatient JOHN YIN JOSELINE GOLDBERG [id number] [facility] 2022-02-28 00:00:00 2022-02-28 00:00:00 Outpatient JOSELINE GOLDBERG [id number] [facility] 2022-02-22 15:15:00 2022-02-22 15:15:00 Outpatient MIHAI HAHN JOSELINE GOLDBERG [id number] [facility] 2022-02-13 11:20:00 2022-02-13 12:52:00 Emergency X SOTEROCASTROHARDY [facility] [id number] [facility] 2022-02-13 11:20:00 2022-02-13 12:52:00 Emergency LynnTimurHardy A [facility] 1.2.840.114 350.1.13.10 4.2.7.2.[id number] [facility] 2022-02-13 00:00:00 2022-02-13 00:00:00 Outpatient GISELLA LIND [id number] [facility] 2022-02-13 00:00:00 2022-02-13 00:00:00 Orders Only Doctor Unassigned, [place] [facility] 1.2.840.114 350.1.13.10 4.2.7.2.[id number] [facility] 2021-11-05 00:00:00 2021-11-05 00:00:00 Outpatient GISELLA LIND [id number] [facility] 2021-08-31 03:15:00 2021-08-31 03:15:00 Outpatient HANH GAMA MAPRASAD [facility] [id number] [facility] 2021-06-25 00:00:00 2021-06-25 00:00:00 Outpatient GISELLA LIND [id number] [facility] 2021-06-15 00:00:00 2021-06-15 00:00:00 Outpatient GISELLA LIND [id number] [facility] 2021-04-18 10:30:00 2021-04-18 14:28:00 Emergency X Kayla LIVINGSTON [facility] [id number] [facility] 2021-04-18 10:30:00 2021-04-18 14:28:00 Emergency Kayla Livingston [facility] 1.2.840.114 350.1.13.10 4.2.7.2.[id number] [facility] 2021-04-18 00:00:00 2021-04-18 00:00:00 Outpatient GISELLA LIND [id number] [facility] 2021-03-28 00:00:00 2021-03-28 00:00:00 Outpatient GISELLA LIND [id number] [facility] 2021-03-28 00:00:00 2021-03-28 00:00:00 Outpatient JOSELINE GOLDBERG [id number] [facility] 2021-03-28 00:00:00 2021-03-28 00:00:00 Outpatient JOSELINE GOLDBERG [id number] [facility] 2021-03-16 10:20:00 2021-03-16 10:20:00 Outpatient LAB90 JOSELINE GOLDBERG [id number] [facility] 2021-03-16 09:35:00 2021-03-16 09:35:00 Outpatient LAB90 JOSELINE GOLDBERG [id number] [facility] 2021-03-15 15:15:00 2021-03-15 15:45:00 Office Visit [place]ella [facility] [place] 1.2.840.114 350.1.13.13 1.2.7.2.686 [id number] [facility] 2021-03-15 00:00:00 2021-03-15 00:00:00 Outpatient GISELLA LIND [id number] [facility] 2021-03-15 00:00:00 2021-03-15 00:00:00 Outpatient GISELLA LIND [id number] [facility] Results Test Description Test Time Test Comments Results Resul t Comments Source XR KNEE 3 VW RIGHT 2023-05-19 3 22:42:42 XR KNEE 3 VW RIGHT HISTORY: ?right knee pain COMPARISON: ?none available. Findings:The osseous structures are intact. Tricompartmental mild osteoarthrosis.Small knee joint effusion.Mild soft tissue edema. ?No abnormal soft tissue calcification. [facility] 10:43:53* Test Item Value Reference Range Interpretation Comme nts HGB A1C (test code = 4548-4) 5.7 % 4.0-5.7 JAY (test code = JAY) Reference RangesNormal: <5.7%Prediabetes: 5.7 - 6.4%Diabetes: > 6.5% Lab Interpretation (test code = 00417-2) [facility] [id number] 06:15:25* Test Item Value Reference Range Interpretation Comme nts FERRITIN (test code = 9862708422) 36.6 ng/mL 18.0-464.0 JAY (test code = JAY) Biotin has been reported to cause a negative bias, interpret results relative to patient's use of biotin. Lab Interpretation (test code = 13458-8) Normal [facility] [id number] 05:48:00* Test Item Value Reference Range Interpretation Comme nts IRON (test code = 6376850872) 109 ug/dL 50-160 TIBC (test code = 3044433104) 387 ug/dL 250-410 % FE SAT (test code = 9878182959) 28 % 20-50 Lab Interpretation (test cod e = 76971-1) Normal [facility] [id number] 05:10:55* Test Item Value Reference Range Interpretation Comme nts FREE T4 (test code = 3307540929) 1.12 See_Comment [Automated messa ge] The system which generated this result transmitted reference range: 0.78 - 2.20 ng/dL:. The reference range was not used to interpret this result as normal/abnormal. Lab Interpretation (test code = 72727-0) Normal [facility] HospitalSEDIMENTATION [id number] 04:03:25* Test Item Value Reference Range Interpretation Comme nts ESR (test code = 34406-5) 2 See_Comment [Automated message] The system which generated this result transmitted reference range: 2 - 30 mm/HR. The reference range was not used to interpret this result as normal/abnormal. Lab Interpretation (test code = 06574-5) Normal [facility]MINAL [id number] 03:50:48* Test Item Value Reference Range Interpretation Comme nts NT-proBNP (test code = 07065-8) <=125 Lab Interpretation (test cod e = 54871-3) Normal [facility] HospitalTHYROID STIMULATING [id number] 03:15:04 * Test Item Value Reference Range Interpretation Comme nts TSH (test code = 9205796662) 8.65 See_Comment H [Automated messa ge] The system which generated this result transmitted reference range: 0.45 - 4.70 mIU/L. The reference range was not used to interpret this result as normal/abnormal. Lab Interpretation (test code = 21163-1) Abnormal [facility] HospitalTROPONIN [id number] 02:56:39* Test Item Value Reference Range Interpretation Comme nts TROPONIN I (test code = 1647536015) 0.002 ng/mL <=0.034 JAY (test code = [...] of biotin. Lab Interpretation (test code = 28090-1) Normal [facility]OLIC PANEL (NA, K, CL, CO2, GLUCOSE, BUN, CREATININE, CA)2022-11-20 02:40:39* Test Item Value Reference Range Interpretation Comme nts NA (test code = 6166724122) 135 mmol/L 135-145 K (test code = 4700413914) 4.1 mmol/L 3.5-5.0 CL (test code = 7758462652) 104 mmol/L 98-108 CO2 TOTAL (test code = 9743659161) 23 mmol/L 23-31 AGAP (test code = 1135288055) 8 2-16 BUN (test code = 7888572572) 14 mg/dL 7-23 GLUCOSE (test code = 6698907901) 100 mg/dL 70-110 CREATININE (test code = 2821519955) 0.67 mg/dL 0.60-1.25 CALCIUM (test code = 8924343121) 9.0 mg/dL 8.6-10.6 eGFR (test code = 0256901651) 139.3 mL/min/1.73m2 JAY (test code = JAY) [...] or abnormalities in imaging tests). [facility]CTION PAN[facility] (98639) (ALB,T.PRO,BILI T,BU/BC,ALT,AST,ALK PHOS)2022-11-20 02:40:39* Test Item Value Reference Range Interpretation Comme nts TOTAL BILI (test code = 8306980925) 0.4 mg/dL 0.1-1.1 BILI UNCON (test code = 4153096370) 0.4 mg/dL 0.1-1.1 BILI CONJ (test code = 3295119892) 0.0 mg/dL 0.0-0.3 T PROTEIN (test code = 0893157940) 7.3 g/dL 6.3-8.2 ALBUMIN (test code = 9359786413) 4.6 g/dL 3.5-5.0 ALK PHOS (test code = 1202405683) 42 U/L 34-122 ALTv (test code = 1742-6) 86 U/L 5-50 H AST(SGOT) (test code = 0617788721) 41 U/L 13-40 H Lab Interpretation (test cod e = 31997-9) Abnormal [facility] WITH [id number] 02:33:58* Test Item Value Reference Range Interpretation Comme nts WBC (test code = 6690-2) 9.15 See_Comment [Automated [employer]] The system which generated this result transmitted reference range: 4.20 - 10.70 10*3/?L. The reference range was not used to interpret this result as normal/abnormal. RBC (test code = 789-8) 5.12 See_Comment [Automated [employer]] The system which generated this result transmitted [...] g/dL 31.2-35.0 H RDW-SD (test code = 95366-9) 39.2 fL 38.5-51.6 RDW-CV (test code = 788-0) 12.5 % 12.1-15.4 PLT (test code = 777-3) 220 See_Comment [Automated messa ge] The system which generated this result transmitted reference range: 150 - 328 10*3/?L. The reference range was not used to interpret this result as normal/abnormal. MPV (test code = 96525-5) 11.8 fL 9.8-13.0 NRBC/100 WBC (test code = 4399986378) 0.0 See_Comment [Automated me ssage] The system which generated this result transmitted reference range: 0.0 - 10.0 /100 WBCs. The reference range was not used to interpret this result as normal/abnormal. NRBC x10^3 (test code = 8867419458) See_Comment [Automated messa ge] The system which generated this result transmitted reference range: 10*3/?L. The reference range was not used to interpret this result as normal/abnormal. GRAN MAT (NEUT) % (test code = 770-8) 68.5 % IMM GRAN % (test code = 0902763835) 0.30 % LYMPH % (test code = 736-9) 20.9 % MONO % (test code = 5905-5) 7.5 % EOS % (test code = 713-8) 2.3 % BASO % (test code = 706-2) 0.5 % GRAN MAT x10^3(ANC) (test code = 1824453531) 6.26 10*3/uL 1.99-6.95 IMM GRAN x10^3 (test code = 9268494870) 0.03 10*3/uL 0.00-0.06 LYMPH x10^3 (test code = 731-0) 1.91 10*3/uL 1.09-3.23 MONO x10^3 (test code = 742-7) 0.69 10*3/uL 0.36-1.02 EOS x10^3 (test code = 711-2) 0.21 10*3/uL 0.06-0.53 BASO x10^3 (test code = 704-7) 0.05 10*3/uL 0.01-0.09 Lab Interpretation (test code = 10050-3) [facility] (30522)2022-09-25 13:24:42* Test Item Value Reference Range Interpretation Comme nts NA (test code = 9683873487) 138 mmol/L 135-145 K (test code = 6783164140) 3.7 mmol/L 3.5-5.0 CL (test code = 6385432714) 102 mmol/L 98-108 CO2 TOTAL (test code = 4983572430) 25 mmol/L 23-31 AGAP (test code = 3540038102) 11 2-16 BUN (test code = 5932235021) 15 mg/dL 7-23 GLUCOSE (test code = 7461945915) 119 mg/dL 70-110 H CREATININE (test code = 7263649273) 0.80 mg/dL 0.60-1.25 TOTAL BILI (test code = 4645526408) 0.5 mg/dL 0.1-1.1 CALCIUM (test code = 1567526439) 8.7 mg/dL 8.6-10.6 T PROTEIN (test code = 6772201573) 7.8 g/dL 6.3-8.2 ALBUMIN (test code = 2926115172) 4.5 g/dL 3.5-5.0 ALK PHOS (test code = 2823345933) 45 U/L 34-122 ALTv (test code = 1742-6) 82 U/L 5-50 H AST(SGOT) (test code = 1213463810) 44 U/L 13-40 H eGFR (test code = 1365967436) 113.5 mL/min/1.73m2 JAY (test code = JAY) [...] imaging tests). Lab Interpretation (test code = 69349-8) [facility]normal [facility] 13:24:02* Test Item Value Reference Range Interpretation Comme nts LIPASE (test code = 3142268165) 290 U/L 0-220 H Lab Interpretation (test cod e = 24822-2) Abnormal [facility] WITH [id number] 13:10:59* Test Item Value Reference Range Interpretation Comme nts WBC (test code = 6690-2) 8.31 See_Comment [Automated [employer]] The system which generated this result transmitted reference range: 4.20 - 10.70 10*3/?L. The reference range was not used to interpret this result as normal/abnormal. RBC (test code = 789-8) 5.34 See_Comment [Automated [employer]] The system which generated this result transmitted [...] g/dL 31.2-35.0 H RDW-SD (test code = 54267-7) 38.1 fL 38.5-51.6 L RDW-CV (test code = 788-0) 12.4 % 12.1-15.4 PLT (test code = 777-3) 202 See_Comment [Automated messa ge] The system which generated this result transmitted reference range: 150 - 328 10*3/?L. The reference range was not used to interpret this result as normal/abnormal. MPV (test code = 74971-3) 11.9 fL 9.8-13.0 NRBC/100 WBC (test code = 5703605804) 0.0 See_Comment [Automated [employer] ssage] The system which generated this result transmitted reference range: 0.0 - 10.0 /100 WBCs. The reference range was not used to interpret this result as normal/abnormal. NRBC x10^3 (test code = 4364856909) See_Comment [Automated [employer] ge] The system which generated this result transmitted reference range: 10*3/?L. The reference range was not used to interpret this result as normal/abnormal. GRAN MAT (NEUT) % (test code = 770-8) 70.7 % IMM GRAN % (test code = 5462400921) 0.80 % LYMPH % (test code = 736-9) 18.4 % MONO % (test code = 5905-5) 7.0 % EOS % (test code = 713-8) 2.6 % BASO % (test code = 706-2) 0.5 % GRAN MAT x10^3(ANC) (test code = 8980340380) 5.87 10*3/uL 1.99-6.95 IMM GRAN x10^3 (test code = 7691999128) 0.07 10*3/uL 0.00-0.06 H LYMPH x10^3 (test code = 731-0) 1.53 10*3/uL 1.09-3.23 MONO x10^3 (test code = 742-7) 0.58 10*3/uL 0.36-1.02 EOS x10^3 (test code = 711-2) 0.22 10*3/uL 0.06-0.53 BASO x10^3 (test code = 704-7) 0.04 10*3/uL 0.01-0.09 Lab Interpretation (test code = 00734-7) [facility]normal [facility] 18:18:55* Test Item Value Reference Range Interpretation Comme nts MAGNESIUM (test code = 6114026584) 1.6 mg/dL 1.7-2.4 L Lab Interpretation (test cod e = 08899-2) Abnormal [facility] (99032)2021-04-18 18:18:35* Test Item Value Reference Range Interpretation Comme nts NA (test code = 5884027250) 136 mmol/L 135-145 K (test code = 6242076979) 4.6 mmol/L 3.5-5.0 CL (test code = 5515615302) 102 mmol/L 98-108 CO2 TOTAL (test code = 8815459482) 24 mmol/L 23-31 AGAP (test code = 1817896762) 2-16 BUN (test code = 4685263586) 12 mg/dL 7-23 GLUCOSE (test code = 1408403874) 95 mg/dL 70-110 CREATININE (test code = 5365110037) 0.78 mg/dL 0.60-1.25 TOTAL BILI (test code = 7141874970) 0.6 mg/dL 0.1-1.1 CALCIUM (test code = 3633723631) 9.3 mg/dL 8.6-10.6 T PROTEIN (test code = 7345792662) 7.1 g/dL 6.3-8.2 ALBUMIN (test code = 7075364060) 4.6 g/dL 3.5-5.0 ALK PHOS (test code = 8611078799) 54 U/L 34-122 ALTv (test code = 1742-6) 53 U/L 5-50 H AST(SGOT) (test code = 1908443296) 37 U/L 13-40 eGFR (test code = 5323190313) mL/min/1.73m2 JAY (test code = JAY) Association [...] imaging tests). Lab Interpretation (test code = 33745-5) [facility]normal [facility] 18:18:35* Test Item Value Reference Range Interpretation Comme nts LIPASE (test code = 4271376984) 49 U/L 0-220 Lab Interpretation (test cod e = 77561-9) Normal [facility] WITH [id number] 18:05:30* Test Item Value Reference Range Interpretation Comme nts WBC (test code = 6690-2) See_Comment H [Automated [employer]] The system which generated this result transmitted reference range: 4.20 - 10.70 10*3/?L. The reference range was not used to interpret this result as normal/abnormal. RBC (test code = 789-8) See_Comment [Automated [employer]] The system which generated this result transmitted [...] 35.0 g/dL 31.2-35.0 RDW-SD (test code = 67140-8) 37.9 fL 38.5-51.6 L RDW-CV (test code = 788-0) 12.5 % 12.1-15.4 PLT (test code = 777-3) See_Comment [Automated messa ge] The system which generated this result transmitted reference range: 150 - 328 10*3/?L. The reference range was not used to interpret this result as normal/abnormal. MPV (test code = 88496-3) 12.1 fL 9.8-13.0 NRBC/100 WBC (test code = 0209253275) See_Comment [Automated [employer] ssage] The system which generated this result transmitted reference range: 0.0 - 10.0 /100 WBCs. The reference range was not used to interpret this result as normal/abnormal. NRBC x10^3 (test code = 5694340156) <0.01 See_Comment [Automated [employer] ge] The system which generated this result transmitted reference range: 10*3/?L. The reference range was not used to interpret this result as normal/abnormal. GRAN MAT (NEUT) % (test code = 770-8) 72.0 % IMM GRAN % (test code = 5908071233) 0.60 % LYMPH % (test code = 736-9) 19.4 % MONO % (test code = 5905-5) 6.7 % EOS % (test code = 713-8) 1.0 % BASO % (test code = 706-2) 0.3 % GRAN MAT x10^3(ANC) (test code = 4510504790) 8.94 10*3/uL 1.99-6.95 H IMM GRAN x10^3 (test code = 3554976227) 0.08 10*3/uL 0.00-0.06 H LYMPH x10^3 (test code = 731-0) 2.41 10*3/uL 1.09-3.23 MONO x10^3 (test code = 742-7) 0.83 10*3/uL 0.36-1.02 EOS x10^3 (test code = 711-2) 0.13 10*3/uL 0.06-0.53 BASO x10^3 (test code = 704-7) 0.04 10*3/uL 0.01-0.09 Lab Interpretation (test code = 69882-6) Abnormal [facility]"
[2024-03-17 05:29] VITALS: TEMP 98.2; O2SAT 100
[2024-03-17 05:31] VITALS: BP 139/86
== END 2024-03-16 19:52 | disposition home or self-care (01) ==
LOC: ER 17:40
DX: N50.812 Left testicular pain (principal)
CPT/HCPCS: 76870; 81001; 96372; 99284

== ENCOUNTER 2024-04-18 21:07 | Emergency (ER) | payer BC ==
--- OUTSIDE RECORDS SUMMARY | 2024-04-18 21:13 | XMS REPORT | Continuity of Care Document ---
Author Name Unknown Address [address] [facility] [address] Carlos. [address] [place] [address] [facility] thconnect Address [address] [facility]. [address] [place] [address] Care Team Providers Care Tool Planner Name Role Phone Diogo BENDER, Gisella De Paz Primary Care Physician PIPPA REYNOSO Attending Clinician Unavailable ROSY Attending Clinician Unavailable MELIZA BENNETT Attending Clinician Unavailabl e LAB90 Attending Clinician Unavailable MD JESUS Attending Clinician Unavailab JOHN Moser Attending Clinician Unavailable JULIANA BAIRD Attending Clinician Unavailable JULIANA BAIRD Attending Clinician Unavailable Juliana Baird DO Attending Clinician [phone] RADHA HERNANDES Attending Clinician Unavailable WILLIAN PEREZ Attending Clinician Unavailable WILLIAN PEREZ Attending Clinician Unavailable LEEANN MCCOY Attending Clinician Unavailable [facility] Attending Clinician Un available Leeann Gomez Attending Clinician [phone] Unknown, Attending Attending Clinician Unavailab NO Guido Attending Clinician Unavailable No Nru MD Attending Clinician [phone] Kayla LIVINGSTON Attending Clinician Unavailable Darryl Owens MD Attending Clinician [phone] Kayla Scherer Attending Clinician [phone] JENY HAIDER Attending Clinician Unavailable INDIA DICKEY Attending Clinician Unavailab India Small DO Attending Clinician +[phone] GISELLA LIND Attending Clinician Unava ilBANDAR Wills Attending Clinician Unavailable Bandar Richardson DO Attending Clinician + LINDA SANFORD Attending Clinician Unavailab Linda Howard Attending Clinician +[phone] SHAE GILLESPIE Attending Clinician Unavailable Shae Gillespie MD Attending Clinician + IVONNE SHULTZ Attending Clinician Unavailable Ivonne Shultz NP Attending Clinician + KACIE QUIROZ Attending Clinician Unavailable Doctor Unassigned, Gasquet Attending Clinician U justaailHAYDEN Marshall Attending Clinician Unavailable Jose Guadalupe Meraz MD Attending Clinician [phone] Hayden Braswell MD Attending Clinician [phone] CECIL CHATMAN Attending Clinician Unavailable MARAL GAMBLE Attending Clinician Unavailab Maral Wilson DO Attending Clinician +[phone] KAIN RAJPUT Attending Clinician Unavailable Kain Acosta Attending Clinician + IGGY WELLER Attending Clinician UnavailIggy Hernández Attending Clinician + [phone] MIHAI HAHN Attending Clinician Unavailable HARDY ZAVALA Attending Clinician UnavailHardy Casillas MD Attending Clinician + [phone] PARVEEN Attending Clinician Unavailable Gisella Lind MD Attending Clinician +[phone] INDIA DICKEY Admitting Clinician Unavailab BANDAR Pace Admitting Clinician Unavailable IVONNE SHULTZ Admitting Clinician Unavailable HAYDEN BRASWELL Admitting Clinician Unavailable Hayden Braswell MD Admitting Clinician PARVEEN Admitting Clinician Unavailable Kayla LIVINGSTON Admitting Clinician Unavailable Payers Payer Name Policy Type Policy Number Effective Date Expirati on Date Source [facility] 9 [id number] 2023 00:00:00 [facility] [id number] 00:00:00 Problems Condition Name Condition Details Condition Category Status Onset Date Resolution Date Last Treatment Date Treating Clinician Comments Source Chest pain Chest pain Disease Active 2022-02 00:00: 00 [facility] Obesity (BMI 30-39.9) Obesity (BMI 30-39.9) Disease Active 2022-02 00:00: 00 [facility] No known active problems No known active problems Disease [facility] Allergies, Adverse Reactions, Alerts Allergy Name Allergy Type Status Severity Reaction(s) Onset Date Inactive Date Treating Clinician Comments Source NO KNOWN ALLERGIE S Drug Class Active [facility] Social History Social Habit Start Date Stop Date Quantity Comments Source Gender identity [facility] Sexual orientation [facility] History of tobacco use Passive smoker [facility] Alcoholic beverage intake 2023-07-12 00:00:00 2023-07-12 00:00:00 Current drinker of alcohol (finding) [facility] Alcohol intake 2023-05-31 00:00:00 2023-05-31 00:00:00 Current drinker of alcohol (finding) [facility] History of Social function 2022-11-20 00:00:00 2022-11-20 00:00:00 [facility] Tobacco use and exposure 2022-11-19 00:00:00 2022-11-19 00:00:00 Smokeless tobacco non-user [facility] Tobacco Comment 2022-11-19 00:00:00 2022-11-19 00:00:00 Patient states that he uses vapes with nicotine in replace of cigarettes [facility] Alcohol Comment 2022-11-19 00:00:00 2022-11-19 00:00:00 socially (once every few months) [facility] Exposure to SARS-CoV-2 (event) 2022-02-18 00:00:00 2022-02-28 15:26:00 Not sure [facility] Sex assigned at 1990 00:00:00 1990 00:00:00 [facility] Smoking Status Start Date Stop Date Source Tobacco smoking consumption unknown [facility] Smokes tobacco daily 2022-09-06 00:00:00 Joseline Bean - External Medications Ordered Medication Name Filled Medication Name Start Date Stop Date Current Medication? Ordering Clinician Indication Dosage Frequency Signature (SIG) Comments Components Source linaCLOtide (Linzess) 145 MCG oral Capsule 09-30 00:00: 00 Yes [id number] 145ug QD Take 1 capsule (145 mcg total) by mouth daily. Joseline trejo hydrocortis one 25 mg suppository 09-30 00:00: 00 Yes [id number] 25mg Insert 1 Suppositor y into rectum in the morning and 1 Suppositor y in the evening. [facility] dibucaine 1 % ointment 09-30 00:00: 00 Yes [id number] Apply to area(s) 3 (three) times daily as needed for Pain (scale 4-6) or Pain (scale 7-10). [facility] Pantoprazol e Sodium 40 MG oral Tablet Delayed Response 09-01 00:00: 00 Yes [id number] 40mg QD take 1 tablet by mouth every day Joseline trejo dexamethaso ne sod phos PF injection 10 mg 08-11 17:30: 00 08-11 17:20 :00 No 10mg 10 mg, Intramuscu lar, ONCE, 1 dose, On Fri08/12/23 at 1230, 1 mL [facility] ketorolac (TORADOL) injection 30 mg 08-11 17:30: 00 08-11 17:22 :00 No 30mg 30 mg, Intramuscu lar, ONCE, 1 dose, On Fri08/12/23 at 1230, POLA [facility] ibuprofen (IBU) tablet 800 mg 06-28 00:45: 00 06-28 00:34 :00 No 800mg 800 mg, Oral, ONCE, 1 dose, On 06/28/23 at 1945, [facility] rabies immune globulin (PF) (HYPERRAB (PF)) injection 2,481 Units 06-27 23:45: 00 06-27 23:51 :00 No 20U/kg 2,481 Units (rounded from 2,480 Units = 20 Units/kg ?124 kg), Intramuscu lar, ONCE, 1 dose, On 06/28/23 at 1845, Routine [facility] mupirocin 2 % ointment 06-27 00:00: 00 Yes [id number] Apply to area(s) 3 (three) times daily. [facility] HYDROcodone -acetaminop hen (NORCO 5) 5-325 mg tablet 1 tablet 05-30 22:15: 00 05-30 22:36 :00 No 1{tbl} 1 tablet, Oral, ONCE, 1 dose, On 05/31/23 at 1715, [facility] Valacyclovi r HCl (Valtrex) 500 MG oral Tablet 05-23 00:00: 00 09-30 00:00 :00 No [id number] 500mg Q.5D Take 1 tablet (500 mg total) by mouth 2 times daily. Joseline trejo methylPREDN ISolone 4 MG oral Tablet Therapy Pack 05-22 00:00: 00 09-30 00:00 :00 No [id number] 1{lam} Take 1 lam by mouth See Admin Instructio ns Use as directed. Joseline trejo Celecoxib (CeleBREX) 200 MG oral Capsule 05-22 00:00: 00 09-30 00:00 :00 No [id number] 200mg Q.5D Take 1 capsule (200 mg total) by mouth 2 times daily. Joseline trejo Trazodone HCl 150 MG oral Tablet 03-22 00:00: 00 Yes [id number] 150mg QD Take 1 tablet (150 mg total) by mouth nightly. Joseline trejo benzonatate 100 mg capsule 03-18 00:00: 00 Yes [id number] 100mg Take 1 capsule by mouth 3 (three) times daily as needed for Cough. [facility] azithromyci n 250 mg tablet 03-18 00:00: 00 Yes [id number] 250mg Take 1 tablet by mouth in the morning. [facility] methylPREDN ISolone (MEDROL, LAM,) 4 mg tablets 03-18 00:00: 00 Yes [id number] Take by mouth SEE-INSTRU CTIONS. follow package directions [facility] ibuprofen (IBU) tablet 600 mg 03-01 02:00: 00 03-01 01:58 :00 No 600mg 600 mg, Oral, ONCE, 1 dose, On Fri02/28/23 at 2000, POLA [facility] benzonatate 100 mg capsule 02-28 00:00: 00 Yes [id number] 100mg Take 1 capsule by mouth 3 (three) times daily as needed for Cough. [facility] Albuterol HFA 108 (90 Base) MCG/ACT IN [...] 02-28 00:00: 00 03-06 05:59 :00 No [id number] 4mg Take 1 tablet by mouth every 8 (eight) hours as needed for Nausea and Vomiting (N/V) for up to 5 days. [facility] cefTRIAXone (ROCEPHIN) injection 500 mg 2022-02 08:30: 00 Yes 500mg 500 mg, Intramuscu lar, Q24H, First dose on 01/11/23 at 0230, Until Discontinu ed, POLA
Re ason for Anti-Infec tive: Empiric Therapy for Suspected Infection< br>Empiric Therapy Site: Urine
D uration of therapy: Once (ED) [facility] acetaminoph en (TYLENOL) tablet 650 mg 2022-02 07:30: 00 01-11 07:32 :00 No 650mg 650 mg, Oral, ONCE, 1 dose, On 01/11/23 at 0130, POLA [facility] Doxycycline Hyclate 100 MG oral Capsule 2022-02 00:00: 00 05-22 00:00 :00 No 100mg Take 1 capsule (100 mg total) by mouth 2 times daily. Joseline trejo ondansetron 4 mg disintegrat ing tablet 2022-02 00:00: 00 02-28 00:00 :00 No [id number] 4mg Take 1 tablet by mouth every 8 (eight) hours as needed for Nausea and Vomiting (N/V). [facility] Pantoprazol e Sodium 40 MG oral Tablet Delayed Response 2022-02 00:00: 00 Yes [id number] 40mg TAKE 1 TABLET BY MOUTH EVERY DAY Joseline trejo sulfur hexafluorid e microsphr (LUMASON) injection 5 mL 2022-02 16:15: 00 11-20 16:15 :00 No [id number] 5mL 5 mL, Intravenou s, ONCE, 1 dose, On Fri11/20/22 at 1115, Routine
membership sales representative approving Restricted medication : HAYDEN BRASWELL [facility] pantoprazol e (PROTONIX) EC tablet 40 mg 2022-02 0 14:00: 00 Yes 40mg 40 mg, Oral, DAILY, First dose on Fri11/20/22 at 0900, Until Discontinu ed, Routine [facility] sennosides- docusate sodium (SENOKOT-S) 8.6-50 mg per tablet 1 tablet 2022-02 14:00: 00 Yes 1{tbl} 1 tablet, Oral, DAILY, First dose on Fri11/20/22 at 0900, Until Discontinu ed, Routine [facility] HYDROcodone -acetaminop hen (NORCO 5) 5-325 mg tablet 1 tablet 2022-02 03:15: 00 11-20 02:44 :00 No 1{tbl} 1 tablet, Oral, ONCE, 1 dose, On Fri11/19/22 at 2215, Routine [facility] ondansetron (ZOFRAN (PF)) injection 4 mg 2022-02 03:09: 48 Yes 4mg 4 mg, Slow IV Push, Q6HPRN, Nausea and Vomiting (N/V), Starting on Fri11/19/22 at 2209
Do ses of ondansetro n 16 mg and above need to be administer ed via IV piggyback. For Dose >=24mg ECG monitoring is advisable.
[facility] heparin (porcine) injection 5,000 Units 2022-02 03:00: 00 Yes 5000U 5,000 Units, Subcutaneo us, Q8H, First dose on Fri11/19/22 at 2200, Until Discontinu ed, Routine [facility] Lidocaine (LIDOCARE) 4 % patch 1 Patch 2022-02 02:30: 00 11-20 14:44 :00 No 1{patch } 1 Patch, Topical, Administer over 12 Hours, ONCE, 1 dose, On Fri11/19/22 at 2130, Routine [facility] sucralfate (CARAFATE) tablet 1 g 2022-02 0 02:00: 00 Yes 1g 1 g, Oral, AC+HS, First dose on Fri11/19/22 at 2100, Until Discontinu ed, Routine [facility] acetaminoph en (TYLENOL) tablet 650 mg 2022-02 0-04 01:22: 59 Yes 650mg 650 mg, Oral, Q6HPRN, Starting on Fri11/19/22 at 2021, Until Discontinu ed, Routine, Pain (scale 1-3) [facility] sucralfate 1 gram tablet 2022-02 0-04 00:00: 00 12-05 04:59 :00 No [id number] 1g Take 1 tablet by mouth before meals and at bedtime for 14 days. [facility] Ondansetron (ZOFRAN) 4 MG oral TABLET DISPERSIBLE 2022-02 0-03 00:00: 00 09-30 00:00 :00 No [id number] 4mg [id number] 3D Take 1 tablet (4 mg total) by mouth every 8 hours as needed for nausea. Joseline trejo Pantoprazol e Sodium 40 MG oral Tablet Delayed Response 10-16 00:00: 00 Yes [id number] 40mg TAKE 1 TABLET BY MOUTH EVERY DAY Joseline trejo Metronidazo le 500 MG oral Tablet 10-15 00:00: 00 Yes [id number] 500mg Take 1 tablet (500 mg total) by mouth 2 times daily. Joseline trejo Valacyclovi r HCl (Valtrex) 500 MG oral Tablet 10-15 00:00: 00 Yes [id number] 500mg Take 1 tablet (500 mg total) by mouth 2 times daily. Joseline trejo sulfamethox azole-trime thoprim 800-160 mg per tablet 09-28 00:00: 00 10-06 04:59 :00 No [id number] 1{tbl} Take 1 tablet by mouth every 12 (twelve) hours for 7 days. [facility] ketorolac (TORADOL) injection 15 mg 09-25 14:45: 00 09-25 13:56 :00 No 15mg 15 mg, Slow IV Push, ONCE, 1 dose, On Fri09/25/22 at 0945, POLA [facility] ondansetron (ZOFRAN (PF)) injection 4 mg 09-25 12:45: 00 09-25 12:43 :00 No 4mg 4 mg, Slow IV Push, ONCE, 1 dose, On Fri09/25/22 at 0745, POLA [facility] maalox:diph enhydrAMINE :lidocaine 2 % viscous 1:1:1 (FIRST-MOUT HWASH BLM) oral suspension 15 mL 09-25 12:45: 00 09-25 12:42 :00 No 15mL 15 mL, Oral, ONCE, 1 dose, On Fri09/25/22 at 0745, Routine [facility] proMETHazin e 25 mg tablet 09-25 00:00: 00 11-20 00:00 :00 No [id number] 25mg Take 1 tablet by mouth every 6 (six) hours as needed for Nausea and Vomiting (N/V). [facility] pantoprazol e 40 mg EC tablet 09-06 00:00: 00 Yes 40mg Take 1 tablet by mouth. [facility] Hydrocortis one Acetate (Hemmorex-H C) 25 MG rectal Suppository 09-06 00:00: 00 05-21 00:00 :00 No [id number] 25mg Apply 1 suppositor y (25 mg total) rectally 2 times daily Joseline trejo NIFEdipine 0.2 % in Lidocaine 5 % 60 g compounded rectal ointment 09-06 00:00: 00 05-21 00:00 :00 No [id number] Apply 1 applicatio n. rectally 2 times daily (Apply pea-sized amount to fingertip and then apply just inside anus) Joseline trejo Mupirocin (BACTROBAN) 2 % apply externally Ointment 08-04 00:00: 00 09-30 00:00 :00 No [id number] 3D Apply 1 applicatio n. topically 3 times daily Joseline trejo mupirocin 2 % ointment 08-03 00:00: 00 Yes [id number] Apply to area(s) 3 (three) times daily. [facility] cephALEXin (KEFLEX) 500 mg capsule 08-03 00:00: 00 08-11 04:59 :00 No [id number] 500mg Take 1 capsule by mouth 4 (four) times daily for 7 days. [facility] doxycycline hyclate 100 mg capsule 08-03 00:00: 08-11 04:59 :00 No [id number] 100mg Take 1 capsule by mouth in the morning and 1 capsule in the evening. Do all this for 7 days. [facility] traZODone 150 mg tablet 06-28 00:00: 00 Yes 150mg Take 1 tablet by mouth. [facility] meclizine (TRAVEL-EAS E (MECLIZINE) ) tablet 25 mg 02-28 21:15: 00 02-28 21:26 :00 No 25mg 25 mg, Oral, ONCE, 1 dose, On Kimmy 02/28/22 at 1515, POLA [facility] meclizine 25 mg tablet 02-28 00:00: 00 09-28 00:00 :00 No 25mg Take 1 tablet by mouth. [facility] predniSONE 20 MG oral tablet 02-22 00:00: 00 Yes [id number] 20mg Take 1 tablet (20 mg total) by mouth daily Joseline trejo Ondansetron HCl 4 MG oral Tablet 02-22 00:00: 00 11-19 00:00 :00 No [id number] 4mg Q.[id number] 3D Take 1 tablet (4 mg total) by mouth every 8 hours as needed for nausea Joseline trejo Amoxicillin 500 MG oral Capsule 02-19 00:00: 00 Yes [id number] TAKE 1 CAPSULE BY MOUTH TWICE A DAY IN THE MORNING AND EVENING FOR 10 DAYS Joseline trejo meclizine (TRAVEL-EAS E (MECLIZINE) ) tablet 25 mg 2021-02- 18:00: 00 02-13 18:02 :00 No 25mg 25 mg, Oral, ONCE, 1 dose, On Fri02/13/22 at 1200, POLA [facility] amoxicillin 500 mg capsule 2021-02 00:00: 00 02-24 05:59 :00 No [id number] 500mg Take 1 capsule by mouth in the morning and 1 capsule in the evening. Do all this for 10 days. [facility] meclizine 25 mg tablet 2021-02 00:00: 00 02-19 05:59 :00 No [id number] 25mg Take 1 tablet by mouth 3 (three) times daily as needed for Dizziness for up to 5 days. [facility] Trazodone HCl 150 MG oral Tablet 08-02 00:00: 00 Yes 150mg Take 1 tablet (150 mg total) by mouth nightly Joseline Bean - Externa l magnesium sulfate in water 2 gram/50 mL (4 %) infusion 2 g 04-18 20:15: 00 04-18 20:18 :00 No 2g 2 g, IV Piggyback, ONCE, 1 dose, On Fri04/18/21 at 1415, Routine [facility] iopamidol (ISOVUE 370-500 mL) injection 120 mL 04-18 19:15: 00 04-18 17:55 :00 No [id number] 120mL 120 mL, Intravenou s, ONCE, 1 dose, On Fri04/18/21 at 1315, Routine [facility] Trazodone HCl 150 MG oral Tablet 03-15 [...] From Chicken Fibroblast Culture (JACINDAT) Unknown Completed [facility] TD Pres-Free Unknown Completed [facility] Human Rabies Vaccine From Chicken Fibroblast Culture (RABAVERT) Unknown Completed [facility] TD Pres-Free Unknown Completed [facility] SARS-COV-2 COVID-19 VACCINE - (MODERNA) Unknown Completed [facility] Human Rabies Vaccine From Chicken Fibroblast Culture (RABAVERT) Unknown Completed [facility] Human Rabies Vaccine From Chicken Fibroblast Culture (RABAVERT) Unknown Completed [facility] TD Pres-Free Unknown Completed [facility] SARS-COV-2 COVID-19 VACCINE - (MODERNA) Unknown Completed [facility] Human Rabies Vaccine From Chicken Fibroblast Culture (RABAVERT) Unknown Completed [facility] Human Rabies Vaccine From Chicken Fibroblast Culture (RABAVERT) Unknown Completed [facility] TD Pres-Free Unknown Completed [facility] SARS-COV-2 COVID-19 VACCINE - (MODERNA) Unknown Completed [facility] Human Rabies Vaccine From Chicken Fibroblast Culture (RABAVERT) Unknown Completed [facility] Human Rabies Vaccine From Chicken Fibroblast Culture (RABAVERT) Unknown Completed [facility] TD Pres-Free Unknown Completed [facility] SARS-COV-2 COVID-19 VACCINE - (MODERNA) Unknown Completed [facility] Human Rabies Vaccine From Chicken Fibroblast Culture (RABAVERT) Unknown Completed [facility] Human Rabies Vaccine From Chicken Fibroblast Culture (RABAVERT) Unknown Completed [facility] TD Pres-Free Unknown Completed [facility] SARS-COV-2 COVID-19 VACCINE - (MODERNA) Unknown Completed [facility] Human Rabies Vaccine From Chicken Fibroblast Culture (RABAVERT) Unknown Completed [facility] Vital Signs Vital Name Observation Time Observation Value Comments S ource Systolic blood pressure 2023-10-01 20:58:00 144 mm[Hg] [facility] Diastolic blood pressure 2023-10-01 20:58:00 89 mm[Hg] [facility] Heart rate 2023-10-01 20:58:00 84 /min [facility] Body temperature 2023-10-01 20:58:00 36.72 Shivani [facility] Respiratory rate 2023-10-01 20:58:00 14 /min [facility] Body height 2023-10-01 20:58:00 182.9 cm [facility] weight 2023-10-01 20:58:00 122.471 kg [facility] BMI 2023-10-01 20:58:00 36.62 kg/m2 [facility] Oxygen saturation in Arterial blood by Pulse oximetry 2023-10-01 20:58:00 99 /min [facility] Systolic blood pressure 2023-10-01 18:36:00 120 mm[Hg] [...] Systolic blood pressure 2023-08-12 16:37:00 125 mm[Hg] [facility] Diastolic blood pressure 2023-08-12 16:37:00 92 mm[Hg] [facility] Heart rate 2023-08-12 16:37:00 93 /min [facility] temperature 2023-08-12 16:37:00 37 Shivani [facility] Respiratory rate 2023-08-12 16:37:00 18 /min [facility] Body height 2023-08-12 16:37:00 182.9 cm [facility] Body weight 2023-08-12 16:37:00 122.471 kg [facility] BMI 2023-08-12 16:37:00 36.62 kg/m2 [facility] Oxygen saturation in Arterial blood by Pulse oximetry 2023-08-12 16:37:00 96 /min [facility] Systolic blood pressure 2023-07-12 16:23:00 109 mm[Hg] [facility] Diastolic blood pressure 2023-07-12 16:23:00 74 mm[Hg] [facility] Heart rate 2023-07-12 16:23:00 61 /min [facility] Body temperature 2023-07-12 16:23:00 36.78 Shivani [facility] Respiratory rate 2023-07-12 16:23:00 12 /min [facility] Body weight 2023-07-12 16:23:00 122.925 kg [facility] BMI 2023-07-12 16:23:00 36.75 kg/m2 [facility] Oxygen saturation in Arterial blood by Pulse oximetry 2023-07-12 16:23:00 97 /min [facility] Systolic blood pressure 2023-07-05 17:17:00 135 mm[Hg] [facility] Diastolic blood pressure 2023-07-05 17:17:00 82 mm[Hg] [facility] Heart rate 2023-07-05 17:17:00 80 /min [facility] Body temperature 2023-07-05 17:17:00 36.56 Shivani [facility] Respiratory rate 2023-07-05 17:17:00 18 /min [facility] Oxygen saturation in Arterial blood by Pulse oximetry 2023-07-05 17:17:00 100 /min [facility] Systolic blood pressure 2023-07-01 23:15:00 130 mm[Hg] [facility] Diastolic blood pressure 2023-07-01 23:15:00 87 mm[Hg] [facility] Heart rate 2023-07-01 23:15:00 83 /min [facility] Body temperature 2023-07-01 23:15:00 37.33 Shivani [facility] Respiratory rate 2023-07-01 23:15:00 14 /min [facility] Body height 2023-07-01 23:15:00 182.9 cm [facility] Body weight 2023-07-01 23:15:00 123.832 kg [facility] BMI 2023-07-01 23:15:00 37.03 kg/m2 [facility] Oxygen saturation in Arterial blood by Pulse oximetry 2023-07-01 23:15:00 97 /min [facility] Systolic blood pressure 2023-06-29 00:34:00 124 mm[Hg] [facility] Diastolic blood pressure 2023-06-29 00:34:00 85 mm[Hg] [facility] Heart rate 2023-06-29 00:34:00 74 /min [facility] Body temperature 2023-06-29 00:34:00 37.06 Shivani [facility] Oxygen saturation in Arterial blood by Pulse oximetry 2023-06-29 00:34:00 96 /min [facility] Respiratory rate 2023-06-28 23:48:00 14 /min [facility] Body weight 2023-06-28 22:32:00 123.968 kg [facility] BMI 2023-06-28 22:32:00 37.07 kg/m2 [facility] Body height 2023-06-28 21:46:00 182.9 cm [facility] Systolic blood pressure 2023-05-31 22:04:00 145 mm[Hg] [facility] Diastolic blood pressure 2023-05-31 22:04:00 85 mm[Hg] [facility] Heart rate 2023-05-31 22:04:00 84 /min [facility] temperature 2023-05-31 22:04:00 36.61 Shivani [facility] Respiratory rate 2023-05-31 22:04:00 16 /min [facility] Body height 2023-05-31 22:04:00 182.9 cm [facility] [place] Body weight 2023-05-31 22:04:00 123.832 kg [facility] [place] BMI 2023-05-31 22:04:00 37.03 kg/m2 [facility] [place] Oxygen saturation in Arterial blood by Pulse oximetry 2023-05-31 22:04:00 99 /min [facility] Systolic blood pressure 2023-05-23 14:15:00 126 mm[Hg] [...] Systolic blood pressure 2023-03-18 18:37:00 116 mm[Hg] [facility] Diastolic blood pressure 2023-03-18 18:37:00 80 mm[Hg] [facility] Heart rate 2023-03-18 18:37:00 87 /min [facility] Body temperature 2023-03-18 18:37:00 36.83 [facility] Respiratory rate 2023-03-18 18:37:00 18 /min [facility] Body weight 2023-03-18 18:37:00 120.203 kg [facility] BMI 2023-03-18 18:37:00 35.94 kg/m2 [facility] Oxygen saturation in Arterial blood by Pulse oximetry 2023-03-18 18:37:00 99 /min [facility] Systolic blood pressure 2023-03-01 01:45:00 141 mm[Hg] [facility] Diastolic blood pressure 2023-03-01 01:45:00 86 mm[Hg] [facility] Heart rate 2023-03-01 01:45:00 92 /min [facility] Body temperature 2023-03-01 01:45:00 37.28 [facility] Respiratory rate 2023-03-01 01:45:00 16 /min [facility] Body height 2023-03-01 01:45:00 182.9 cm [facility] Body weight 2023-03-01 01:45:00 120.203 kg [facility] BMI 2023-03-01 01:45:00 35.94 kg/m2 [facility] Oxygen saturation in Arterial blood by Pulse oximetry 2023-03-01 01:45:00 100 /min [facility] Systolic blood pressure 2023-01-25 10:30:00 127 mm[Hg] [facility] Diastolic blood pressure 2023-01-25 10:30:00 84 mm[Hg] [facility] Heart rate 2023-01-25 10:30:00 77 /min [facility] Body temperature 2023-01-25 10:30:00 36.67 [facility]iv[facility] Respiratory rate 2023-01-25 10:30:00 18 /min [facility] Body height 2023-01-25 10:30:00 182.9 cm [facility] Body weight 2023-01-25 10:30:00 120.203 kg [facility] BMI 2023-01-25 10:30:00 35.94 kg/m2 [facility] Oxygen saturation in Arterial blood by Pulse oximetry 2023-01-25 10:30:00 99 /min [facility] Systolic blood pressure 2023-01-11 06:54:00 120 mm[Hg] [facility] Diastolic blood pressure 2023-01-11 06:54:00 69 mm[Hg] [facility] Heart rate 2023-01-11 06:54:00 61 /min [facility] Body temperature 2023-01-11 06:54:00 36.33 [facility]ivani [facility] Oxygen saturation in Arterial blood by Pulse oximetry 2023-01-11 06:54:00 98 /min [facility] Respiratory rate 2023-01-11 03:19:00 18 /min [facility] Body height 2023-01-11 03:19:00 182.9 cm [facility] [place] Body weight 2023-01-11 03:19:00 122.471 kg [facility] BMI 2023-01-11 03:19:00 36.62 kg/m2 [facility] [place] Systolic blood pressure 2022-12-02 13:34:00 126 mm[Hg] [facility] Diastolic blood pressure 2022-12-02 13:34:00 90 mm[Hg] [facility] Heart rate 2022-12-02 13:34:00 77 /[facility] 2022-12-02 13:34:00 37 [facility] Respiratory rate 2022-12-02 13:34:00 18 /min [facility] Body height 2022-12-02 13:34:00 182.9 cm [facility] [place] Body weight 2022-12-02 13:34:00 120.203 kg [facility] BMI 2022-12-02 13:34:00 35.94 kg/m2 [facility] Oxygen saturation in Arterial blood by Pulse oximetry 2022-12-02 13:34:00 100 /min [facility] Body height 2022-11-20 20:00:00 182.9 cm [facility] Systolic blood pressure 2022-11-20 16:50:00 124 mm[Hg] [facility] Diastolic blood pressure 2022-11-20 16:50:00 83 mm[Hg] [facility] Heart rate 2022-11-20 16:50:00 61 /min [facility] Body temperature 2022-11-20 16:50:00 36.61 [facility] Respiratory rate 2022-11-20 16:50:00 20 /min [facility] Oxygen saturation in Arterial blood by Pulse oximetry 2022-11-20 16:50:00 98 /min [facility] Body weight 2022-11-20 01:00:00 122 kg [facility] BMI 2022-11-20 01:00:00 36.48 kg/m2 [facility] Systolic blood pressure 2022-09-28 14:31:00 136 mm[Hg] [facility] Diastolic blood pressure 2022-09-28 14:31:00 97 mm[Hg] [facility] Heart rate 2022-09-28 14:31:00 76 /min [facility] Body temperature 2022-09-28 14:31:00 36.67 Shivani [facility] Respiratory rate 2022-09-28 14:31:00 18 /min [facility] Body height 2022-09-28 14:31:00 182.9 cm [facility] Body weight 2022-09-28 14:31:00 122.018 kg [facility] BMI 2022-09-28 14:31:00 36.48 kg/m2 [facility] Oxygen saturation in Arterial blood by Pulse oximetry 2022-09-28 14:31:00 98 /min [facility] Systolic blood pressure 2022-09-25 14:52:21 125 mm[Hg] [facility] Diastolic blood pressure 2022-09-25 14:52:21 88 mm[Hg] [facility] Heart rate 2022-09-25 14:52:21 72 /min [facility] Body temperature 2022-09-25 14:52:21 36.83 Shivani [facility] Respiratory rate 2022-09-25 14:52:21 16 /min [facility] Oxygen saturation in Arterial blood by Pulse oximetry 2022-09-25 14:52:21 96 /min [facility] Body height 2022-09-25 12:10:00 182.9 cm [facility] Body temperature 2022-08-04 01:30:00 37.11 Shivani [facility] Respiratory rate 2022-08-04 01:30:00 18 /min [facility] Body height 2022-08-04 01:30:00 175.3 cm [facility] Body weight 2022-08-04 01:30:00 106.595 kg [facility] BMI 2022-08-04 01:30:00 34.70 kg/m2 [facility] Oxygen saturation in Arterial blood by Pulse oximetry 2022-08-04 01:30:00 100 /min [facility] Systolic blood pressure 2022-08-04 01:30:00 146 mm[Hg] [facility] Diastolic blood pressure 2022-08-04 01:30:00 105 mm[Hg] [facility] Systolic blood pressure 2022-07-12 18:18:00 118 mm[Hg] [...] Systolic blood pressure 2022-02-28 20:48:00 139 mm[Hg] [facility] Diastolic blood pressure 2022-02-28 20:48:00 92 mm[Hg] [facility] Heart rate 2022-02-28 20:48:00 78 /min [facility] Body temperature 2022-02-28 20:48:00 36.89 Shivani [facility] Respiratory rate 2022-02-28 20:48:00 22 /min [facility] Body height 2022-02-28 20:48:00 182.9 cm [facility] Body weight 2022-02-28 20:48:00 106.595 kg [facility] BMI 2022-02-28 20:48:00 31.87 kg/m2 [facility] Oxygen saturation in Arterial blood by Pulse oximetry 2022-02-28 20:48:00 99 /min [facility] Systolic blood pressure 2022-02-13 17:19:00 146 mm[Hg] [facility] Diastolic blood pressure 2022-02-13 17:19:00 85 mm[Hg] [facility] Heart rate 2022-02-13 17:19:00 90 /min [facility] Body temperature 2022-02-13 17:19:00 36.61 Shivani [facility] Respiratory rate 2022-02-13 17:19:00 16 /min [facility] Body height 2022-02-13 17:19:00 182.9 cm [facility] Body weight 2022-02-13 17:19:00 106.595 kg [facility] BMI 2022-02-13 17:19:00 31.87 kg/m2 [facility] Oxygen saturation in Arterial blood by Pulse oximetry 2022-02-13 17:19:00 100 /min [facility] Systolic blood pressure 2021-04-18 20:00:00 119 mm[Hg] [facility] Diastolic blood pressure 2021-04-18 20:00:00 72 mm[Hg] [facility] Heart rate 2021-04-18 20:00:00 72 /min [facility] Respiratory rate 2021-04-18 20:00:00 21 /min [facility] Oxygen saturation in Arterial blood by Pulse oximetry 2021-04-18 20:00:00 97 /min [facility] Body temperature 2021-04-18 16:29:00 36.44 Shivani [facility] Body height 2021-04-18 16:29:00 182.9 cm Gordon [...] VACCINE, IM 2023-07-12 16:29:39 Doctor Un assigned, [place] [facility] RABIES VACCINE, IM 2023-07-01 23:31:31 [facility] [place] [facility] VW RIGHT 2023-05-31 22:39:24 Aimee Dickey [facility] ASSIGNMENT OF BENEFITS 2023-03-18 19:32:42 Docto r Unassigned, [place] [facility] CONSENT/REFUSAL FOR DIAGNOSIS AND TREATMENT 2023-03-18 18:28:03 Doctor Unassigned, [place] [facility] RAPID STREP SCREEN FOR GROUP A 2023-03-01 01:55:00 Linda Sanford [facility] RAPID INFLUENZA A/B 2023-03-01 01:55:00 Linda Sanford [facility] COVID-19 (ID NOW RAPID TESTING) 2023-03-01 01:55:00 Linda Sanford [facility] CONSENT/REFUSAL FOR DIAGNOSIS AND TREATMENT 2023-03-01 01:37:40 Doctor Unassigned, [place] [facility] RAPID STREP SCREEN FOR GROUP A 2023-01-25 10:33:00 Shae Gillespie [facility] CONSENT/REFUSAL FOR DIAGNOSIS AND TREATMENT 2023-01-25 10:18:08 Doctor Unassigned, [place] [facility] US TESTICULAR TORSION 2023-01-11 06:06:00 Joey Shultz [facility] URINALYSIS 2023-01-11 04:00:00 Ivonne Shultz [facility] CONSENT/REFUSAL FOR DIAGNOSIS AND TREATMENT 2023-01-11 03:07:43 Doctor Unassigned, [place] [facility] INSURANCE CORRESPONDENCE 2022-12-10 05:01:00 Doc tor Unassigned, [place] [facility] REFERRAL- REQUEST/RESPONSE 2022-12-09 05:01:00 Doctor Unassigned, [place] [facility] CONSENT/REFUSAL FOR DIAGNOSIS AND TREATMENT 2022-12-02 13:22:20 Doctor Unassigned, [place] [facility] TRANSTHORACIC ECHO (TTE) COMPLETE W/ CONTRAST 2022-11-20 16:09:18 Jus Melendezmad [facility] TROPONIN I 2022-11-20 13:52:00 Chanel Melendez greeleyverónica [facility] C-REACTIVE PROTEIN 2022-11-20 07:13:00 Al Tate [facility] TROPONIN I 2022-11-20 07:13:00 Al [facility] LIPID PANEL (62435)(TOTAL CHOLESTEROL, TRIGLYCERIDES, HDL) 2022-11-20 07:13:00 Lea Melendez [facility] FERRITIN SERUM 2022-11-20 02:14:00 [facility] TROPONIN I 2022-11-20 02:14:00 Al [facility] keyautverónica [facility] FREE T4 2022-11-20 02:14:00 [facility] THYROID STIMULATING HORMONE 2022-11-20 02:14:00 Al Tate [facility] HEPATIC FUNCTION PANEL (14034) (ALB,T.PRO,BILI T,BU/BC,ALT,AST,ALK PHOS) 2022-11-20 02:14:00 Lea Melendez [facility] BASIC METABOLIC PANEL (NA, K, CL, CO2, GLUCOSE, BUN, CREATININE, CA) 2022-11-20 02:14:00 Lea Melendez Joseph [facility] IRON PANEL 2022-11-20 02:14:00 Chanel Melendez greeleyverónica [facility] SEDIMENTATION RATE 2022-11-20 02:14:00 Tobias Melendezhammad [facility] CBC WITH DIFF 2022-11-20 02:14:00 Chanel Melendez greeleyverónica [facility] GLYCOSYLATED HEMOGLOBIN (A1C) 2022-11-20 02:14:[address] [facility] N-TERMINAL PRO-BNP 2022-11-20 02:14:00 Al Tate [facility] XR CHEST 1 VW 2022-11-20 02:08:59 Al [facility] EXTRA TUBE LT. GREEN 2022-11-20 02:05:00 Wilfredo Braswell [facility] INSURANCE CORRESPONDENCE 2022-11-02 05:01:00 Doc tor Unassigned, [place] [facility] US TESTICULAR TORSION 2022-09-28 15:35:02 Joey Shultz [facility] URINALYSIS 2022-09-28 14:52:00 Ivonne Shultz [facility] CONSENT/REFUSAL FOR DIAGNOSIS AND TREATMENT 2022-09-28 14:27:23 Doctor Unassigned, [place] [facility] LIPASE 2022-09-25 12:43:00 Maral Gamble [facility] COMP. METABOLIC PANEL (72886) 2022-09-25 12:43:00 Maral Gamble [facility] CBC WITH DIFF 2022-09-25 12:43:00 Maral Gamble [facility] CONSENT/REFUSAL FOR DIAGNOSIS AND TREATMENT 2022-09-25 12:03:13 Doctor Unassigned, [place] [facility] URINALYSIS 2022-08-04 01:52:00 Kain [facility] NOTICE OF PRIVACY PRACTICES 2022-08-04 01:24:37 Doctor Unassigned, [place] [facility] CONSENT/REFUSAL FOR DIAGNOSIS AND TREATMENT 2022-08-04 01:24:12 Doctor Unassigned, [place] [facility] CONSENT/REFUSAL FOR DIAGNOSIS AND TREATMENT 2022-02-28 20:35:39 Doctor Unassigned, [place] [facility] RAPID STREP SCREEN FOR GROUP A 2022-02-13 18:03:00 Hardy Zavala [facility] RAPID INFLUENZA A/B 2022-02-13 18:03:00 Dinesh Zavala [facility] COVID-19 (ID NOW RAPID TESTING) 2022-02-13 18:03:00 Hardy Zavala [facility] CONSENT/REFUSAL FOR DIAGNOSIS AND TREATMENT 2022-02-13 17:16:02 Doctor Unassigned, [place] [facility] CT ABDOMEN PELVIS W CONTRAST 2021-04-18 18:02:33 Kayla Livingston [facility] LIPASE 2021-04-18 17:19:00 Kayla [facility] MAGNESIUM 2021-04-18 17:19:00 Kayla [facility] COMP. METABOLIC PANEL (57878) 2021-04-18 17:19:00 Kayla Livingston [facility] CBC WITH DIFF 2021-04-18 17:19:00 [facility] 2021-04-18 17:19:00 Kayla [facility] NOTICE OF PRIVACY PRACTICES 2021-04-18 16:02:42 Doctor Unassigned, [place] [facility] Encounters Start Date/Time End Date/Time Encounter Type Admission Type Attending [facility] Care Facility Care Department Encounter ID Source 2024-02-29 00:00:00 2024-02-29 00:00:00 Outpatient PIPPA REYNOSO [id number] Joseline Seybc[facility] 2024-02-20 00:00:00 2024-02-20 00:00:00 Outpatient ROSY JOSELINE GOLDBERG [id number] [facility] 2024-02-19 00:00:00 2024-02-19 00:00:00 Outpatient ROSY JOSELINE GOLDBERG [id number] [facility] 2024-01-28 00:00:00 2024-01-28 00:00:00 Outpatient SAVANAHDarling PIPPA JOSELINE GOLDBERG [id number] [facility] 2024-01-19 00:00:00 2024-01-19 00:00:00 Outpatient EDGARDO PIPPA GOLDBERG [id number] [facility] 2023-12-19 00:00:00 2023-12-19 00:00:00 Outpatient JOSELINE GOLDBERG [id number] [facility] 2023-12-10 09:00:00 2023-12-10 09:00:00 Outpatient MELIZA BENNETT [id number] [facility] 2023-11-30 00:00:00 2023-11-30 00:00:00 Outpatient EDGARDO PIPPA JOSELINE GOLDBERG [id number] [facility] 2023-10-24 00:00:00 2023-10-24 00:00:00 Outpatient JOSELINE GOLDBERG [id number] [facility] 2023-10-23 13:50:00 2023-10-23 13:50:00 Outpatient LAB90 JOSELINE GOLDBERG [id number] [facility] 2023-10-23 00:00:00 2023-10-23 00:00:00 Outpatient PIPPA REYNOSO [id number] Joseline Seybold 2023-10-17 00:00:00 2023-10-17 00:00:00 Outpatient MD JOSELINE MATHIAS [id number] [facility] 2023-10-17 00:00:00 2023-10-17 00:00:00 Outpatient MD JOSELINE MATHIAS [id number] [facility] 2023-10-15 00:00:00 2023-10-15 00:00:00 Outpatient JOHN YIN JOSELINE GOLDBERG [id number] [facility] 2023-10-06 00:00:00 2023-10-06 00:00:00 Outpatient JOSELINE GOLDBERG [id number] [facility] 2023-10-03 00:00:00 2023-10-03 00:00:00 Outpatient JOSELINE GOLDBERG [id number] [facility] 2023-10-02 00:00:00 2023-10-02 00:00:00 Outpatient EDGARDO PIPPA GOLDBERG [id number] [facility] 2023-10-01 15:59:00 2023-10-01 17:11:00 Emergency JULIANA BARRY TIMOTHY [facility] [id number] [facility] 2023-10-01 15:59:00 2023-10-01 17:11:00 Emergency Juliana Baird [facility] 1.2.840.114 350.1.13.10 4.2.7.2.686 [id number] [facility] 2023-10-01 14:45:00 2023-10-01 14:45:00 Outpatient LAB90 JOSELINE GOLDBERG [id number] [facility] 2023-10-01 14:00:00 2023-10-01 14:00:00 Outpatient EDGARDO PIPPA GOLDBERG [id number] [facility] 2023-10-01 00:00:00 2023-10-01 00:00:00 Outpatient CECILIORADHA SALVADOR JOSELINE GOLDBERG [id number] [facility] 2023-10-01 00:00:00 2023-10-01 00:00:00 Outpatient JOSELINE GOLDBERG [id number] [facility] 2023-09-02 00:00:00 2023-09-02 00:00:00 Outpatient EDGARDO PIPPA GOLDBERG [id number] [facility] 2023-08-12 11:39:00 2023-08-12 12:41:00 Emergency X JAYESWILLIAN JULIO [facility] E[facility] [id number] [facility] 2023-08-12 11:39:00 2023-08-12 12:41:00 Emergency Magdaleno Perezio C [facility] 1.84.114 350.1.13.10 4.2.7.2.686 [id number] [facility] 2023-07-12 11:15:00 2023-07-12 11:40:51 Outpatient R LEEANN MCCOY [facility] [id number] [facility] 2023-07-12 11:15:00 2023-07-12 11:35:00 [facility] 1.840.114 350.1.13.10 4.2.7.2.686 [id number] [facility] 2023-07-05 12:00:00 2023-07-05 12:57:22 Outpatient R MICHAELLEEANN JEFFERY [facility] [id number] [facility] 2023-07-05 12:00:00 2023-07-05 12:20:00 Nurse [facility] Unknown, Attending [facility] 1.840.114 350.1.13.10 4.2.7.2.686 [id number] [facility] 2023-07-01 18:00:00 2023-07-01 18:54:27 Outpatient R NO NUR [facility] [id number] [facility] 2023-07-01 18:00:00 2023-07-01 18:20:00 Urgent Care No Nur Unknown, Attending [facility] 1.840.114 350.1.13.10 4.2.7.2.686 [id number] [facility] 2023-06-28 16:49:00 2023-06-28 20:22:00 Emergency X YARA Kayla [facility] E[facility] [id number] [facility] 2023-06-28 16:49:00 2023-06-28 20:22:00 Emergency Darryl Owens YaraKayla Asiya [facility] 1.2.840.114 350.1.13.10 4.2.7.2.686 [id number] [facility] 2023-06-23 00:00:00 2023-06-23 00:00:00 Outpatient JOSELINE GOLDBERG [id number] [facility] 2023-06-23 00:00:00 2023-06-23 00:00:00 Outpatient JOSELINE GOLDBERG [id number] [facility] 2023-06-16 00:00:00 2023-06-16 00:00:00 Outpatient PIPPA REYNOSO [id number] [facility] 2023-06-15 00:00:00 2023-06-15 00:00:00 Outpatient PIPPA REYNSOO [id number] [facility] 2023-06-13 13:45:00 2023-06-13 13:45:00 Outpatient JENY HAIDER [id number] [facility] 2023-06-05 00:00:00 2023-06-05 00:00:00 Outpatient JENY HAIDER [id number] [facility] 2023-06-02 00:00:00 2023-06-02 00:00:00 Outpatient PIPPA REYNOSO [id number] [facility] 2023-06-02 00:00:00 2023-06-02 00:00:00 Outpatient JOSELINE GOLDBERG [id number] [facility] 2023-06-02 00:00:00 2023-06-02 00:00:00 Outpatient PIPPA REYNOSO [id number] [facility] 2023-05-31 17:06:00 2023-05-31 18:29:00 Emergency X [facility] E[facility] [id number] [facility] 2023-05-31 17:06:00 2023-05-31 18:29:00 Emergency India Dickey [facility] 1.2.840.114 350.1.13.10 4.2.7.2.686 [id number] [facility] 2023-05-28 00:00:00 2023-05-28 00:00:00 Outpatient EDGARDO PIPPA GOLDBERG [id number] [facility] 2023-05-28 00:00:00 2023-05-28 00:00:00 Outpatient EDGARDO PIPPA GOLDBERG [id number] [facility] 2023-05-28 00:00:00 2023-05-28 00:00:00 Outpatient PIPPA REYNOSO [id number] [facility] 2023-05-23 09:30:00 2023-05-23 09:30:00 Outpatient EDGARDO PIPPA GOLDBERG [id number] [facility] 2023-05-23 00:00:00 2023-05-23 00:00:00 Outpatient EDGARDO PIPPA GOLDBERG [id number] [facility] 2023-03-25 00:00:00 2023-03-25 00:00:00 Outpatient GISELLA LIND [id number] [facility] 2023-03-25 00:00:00 2023-03-25 00:00:00 Outpatient GISELLA LIND [id number] [facility] 2023-03-25 00:00:00 2023-03-25 00:00:00 Outpatient JOSELINE GOLDBERG [id number] [facility] 2023-03-19 00:00:00 2023-03-19 00:00:00 Outpatient GISELLA LIND [id number] [facility] 2023-03-18 12:37:00 2023-03-18 13:38:00 Emergency X [facility] ERT [id number] [facility] 2023-03-18 12:37:00 2023-03-18 13:38:00 Emergency Bandar Richardson [facility] 1.2.840.114 350.1.13.10 4.2.7.2.686 [id number] [facility] 2023-02-28 19:47:00 2023-02-28 21:02:00 Emergency X [facility] ERT [id number] [facility] 2023-02-28 19:47:00 2023-02-28 21:02:00 Emergency Linda Sanford [facility] 1.2.840.114 350.1.13.10 4.2.7.2.686 [id number] [facility] 2023-02-13 00:00:00 2023-02-13 00:00:00 Outpatient JOSELINE GOLDBERG [id number] Joseline Bean 2023-01-25 04:35:00 2023-01-25 06:05:00 Emergency [facility] [id number] [facility] 2023-01-25 04:35:00 2023-01-25 06:05:00 Emergency Shae Gillespie [facility] 1.2.840.114 350.1.13.10 4.2.7.2.686 [id number] [facility] 2023-01-10 21:21:00 2023-01-11 01:38:00 Emergency X [facility]NE [facility] ERT [id number] [facility] 2023-01-10 21:21:00 2023-01-11 01:38:00 Emergency Ivonne Shultz [facility] 1.2.840.114 350.1.13.10 4.2.7.2.686 [id number] [facility] 2022-12-25 09:15:00 2022-12-25 09:15:00 Outpatient KACIE QUIROZ JOSELINE GOLDBERG [id number] [facility] 2022-12-10 00:00:00 2022-12-10 00:00:00 Orders Only Doctor Unassigned, [place] [facility] 1.2.840.114 350.1.13.10 4.2.7.2.686 [id number] [facility] [facility] 2022-12-09 00:00:00 2022-12-09 00:00:00 Orders Only Doctor Unassigned, [place] [facility] 1.2.840.114 350.1.13.10 4.2.7.2.686 [id number] [facility] 2022-12-04 00:00:00 2022-12-04 00:00:00 Outpatient JOSELINE GOLDBERG [id number] [facility] 2022-12-03 00:00:00 2022-12-03 00:00:00 Outpatient GISELLA LIND [id number] [facility] 2022-12-02 08:34:00 2022-12-02 10:08:00 Emergency X Kayla [facility] ERT [id number] [facility] 2022-12-02 08:34:00 2022-12-02 10:08:00 Emergency Kayla Livingston [facility] 1.2.840.114 350.1.13.10 4.2.7.2.686 [id number] [facility] 2022-11-23 00:00:00 2022-11-23 00:00:00 Outpatient PIPPA REYNOSO [id number] [facility] 2022-11-21 00:00:00 2022-11-21 00:00:00 Outpatient JOSELINE GOLDBERG [id number] [facility] 2022-11-19 19:34:00 2022-11-20 16:45:00 Outpatient X HAYDEN BRASWELL [facility] [id number] [facility] 2022-11-19 19:34:00 2022-11-20 16:45:00 Hospital Encounter Jose Guadalupe Meraz Benjigiovanna mikey [facility] 1.2.840.114 350.1.13.10 4.2.7.2.686 [id number] [facility] 2022-11-20 13:00:00 2022-11-20 13:00:00 Outpatient GABRIELLA, KACIESonia GOLDBERG [id number] [facility] 2022-11-19 11:30:00 2022-11-19 11:30:00 Outpatient CECIL CHATMAN [id number] [facility] 2022-11-19 00:00:00 2022-11-19 00:00:00 Outpatient PIPPA REYNOSO [id number] [facility] 2022-11-02 00:00:00 2022-11-02 00:00:00 Outpatient JOSELINE GOLDBERG [id number] [facility] 2022-11-02 00:00:00 2022-11-02 00:00:00 Orders Only Doctor Unassigned, [place] [facility] 1.2.840.114 350.1.13.10 4.2.7.2.686 [id number] [facility] 2022-11-01 00:00:00 2022-11-01 00:00:00 Outpatient JOSELINE GOLDBERG [id number] [facility] 2022-10-22 00:00:00 2022-10-22 00:00:00 Outpatient PIPPA REYNOSO [id number] [facility]-22 00:00:00 2022-10-22 00:00:00 Outpatient JOSELINE GOLDBERG [id number] [facility] 2022-10-18 00:00:00 2022-10-18 00:00:00 Outpatient JOSELINE GOLDBERG [id number] [facility] 2022-10-16 00:00:00 2022-10-16 00:00:00 Outpatient PIPPA REYNOOS JOSELINE [id number] [facility] 2022-10-15 00:00:00 2022-10-15 00:00:00 Outpatient JOHN YIN JOSELINE [id number] [facility] 2022-10-15 00:00:00 2022-10-15 00:00:00 Outpatient JOHN YIN JOSELINE [id number] [facility] 2022-10-11 08:00:00 2022-10-11 08:00:00 Outpatient LAB90 JOSELINE JOSELINE [id number] [facility] 2022-10-11 00:00:00 2022-10-11 00:00:00 Outpatient PIPPA REYNOSO JOSELINE GOLDBERG [id number] [facility] 2022-10-08 00:00:00 2022-10-08 00:00:00 Outpatient PIPPA REYNOSO JOSELINE GOLDBERG [id number] [facility] 2022-10-07 00:00:00 2022-10-07 00:00:00 Outpatient JOSELINE JOSELINE [id number] [facility] 2022-10-07 00:00:00 2022-10-07 00:00:00 Outpatient JOSELINE JOSELINE [id number] [facility] 2022-10-02 00:00:00 2022-10-02 00:00:00 Outpatient PIPPA REYNOSO JOSELINE GOLDBERG [id number] [facility] 2022-09-28 09:34:00 2022-09-28 11:04:00 Emergency X [facility] ERT [id number] [facility] 2022-09-28 09:34:00 2022-09-28 11:04:00 Emergency Ivonne Shultz G [facility] 1.2.840.114 350.1.13.10 4.2.7.2.686 [id number] [facility] 2022-09-28 00:00:00 2022-09-28 00:00:00 Outpatient HUNDPIPPA Trejo JOSELINE GOLDBERG [id number] [facility] 2022-09-25 07:15:00 2022-09-25 09:59:00 Emergency X [facility] ERT [id number] [facility] 2022-09-25 07:15:00 2022-09-25 09:59:00 Emergency Maral Gamble [facility] 1.2.840.114 350.1.13.10 4.2.7.2.686 [id number] [facility] 2022-09-11 00:00:00 2022-09-11 00:00:00 Outpatient SAVANAHDarling PIPPA GOLDBERG [id number] [facility] 2022-09-06 14:45:00 2022-09-06 14:45:00 Outpatient LAB90 JOSELINE GOLDBERG [id number] [facility] 2022-09-06 14:00:00 2022-09-06 14:00:00 Outpatient EDGARDO PIPPA JOSELINE GOLDBERG [id number] [facility] 2022-09-06 00:00:00 2022-09-06 00:00:00 Outpatient JOSELINE GOLDBERG [id number] [facility] 2022-08-12 00:00:00 2022-08-12 00:00:00 Outpatient JOSHUAJOHN Davis JOSELINE GOLDBERG [id number] [facility] 2022-08-12 00:00:00 2022-08-12 00:00:00 Outpatient JOSELINE GOLDBERG [id number] [facility] 2022-08-03 20:31:00 2022-08-03 21:56:00 Emergency [facility] [id number] [facility] 2022-08-03 20:31:00 2022-08-03 21:56:00 Emergency Kain Rajput [facility] 1.2.840.114 350.1.13.10 4.2.7.2.686 [id number] [facility] 2022-07-19 11:30:00 2022-07-19 11:30:00 Outpatient JOHN YIN JOSELINE GOLDBERG [id number] [facility] 2022-07-12 14:00:00 2022-07-12 14:00:00 Outpatient GISELLA LIND JOSELINE GOLDBERG [id number] [facility] 2022-07-12 14:00:00 2022-07-12 14:00:00 Outpatient DIOGOGISELLA JOSELINE GOLDBERG [id number] [facility] 2022-07-10 00:00:00 2022-07-10 00:00:00 Outpatient JOHN YIN JOSELINE GOLDBERG [id number] [facility] 2022-06-28 00:00:00 2022-06-28 00:00:00 Outpatient DIOGO GISELLA GOLDBERG [id number] [facility] 2022-06-28 00:00:00 2022-06-28 00:00:00 Outpatient DIOGOHARDEEPGERRY GOLDBERG [id number] [facility] 2022-03-04 15:30:00 2022-03-04 15:30:00 Outpatient DIOGOGISELLA JOSELINE GOLDBERG [id number] [facility] 2022-02-28 14:49:00 2022-02-28 15:41:00 Emergency X [facility]GGY [facility] ERT [id number] [facility] 2022-02-28 14:49:00 2022-02-28 15:41:00 Emergency Iggy Weller [facility] 1.2.840.114 350.1.13.10 4.2.7.2.686 [id number] [facility] 2022-02-28 00:00:00 2022-02-28 00:00:00 Outpatient JOHN YIN JOSELINE GOLDBERG [id number] [facility] 2022-02-28 00:00:00 2022-02-28 00:00:00 Outpatient JOSELINE GOLDBERG [id number] [facility] 2022-02-22 15:15:00 2022-02-22 15:15:00 Outpatient MIHAI HAHN JOSELINE GOLDBERG [id number] [facility] 2022-02-13 11:20:00 2022-02-13 12:52:00 [facility] [id number] [facility] 2022-02-13 11:20:00 2022-02-13 12:52:00 Emergency LynnTimurHardy A [facility] 1.2.840.114 350.1.13.10 4.2.7.2.686 [id number] [facility] 2022-02-13 00:00:00 2022-02-13 00:00:00 Outpatient GISELLA LIND [id number] [facility] 2022-02-13 00:00:00 2022-02-13 00:00:00 Orders Only Doctor Unassigned, [place] [facility] 1.2.840.114 350.1.13.10 4.2.7.2.686 [id number] [facility] 2021-11-05 00:00:00 2021-11-05 00:00:00 Outpatient GISELLA LIND [id number] [facility] 2021-08-31 03:15:00 2021-08-31 03:15:00 Outpatient [facility]H [facility] [id number] [facility] 2021-06-25 00:00:00 2021-06-25 00:00:00 Outpatient GISELLA LIND [id number] [facility] 2021-06-15 00:00:00 2021-06-15 00:00:00 Outpatient GISELLA LIND [id number] [facility] 2021-04-18 10:30:00 2021-04-18 14:28:00 Emergency X Kayla [facility] ERT [id number] [facility] 2021-04-18 10:30:00 2021-04-18 14:28:00 Emergency Kayla Livingston [facility] 1.2.840.114 350.1.13.10 4.2.7.2.686 [id number] [facility] 2021-04-18 00:00:00 2021-04-18 00:00:00 Outpatient GISELLA LIND [id number] [facility] 2021-03-28 00:00:00 2021-03-28 00:00:00 Outpatient GISELLA LIND [id number] [facility] 2021-03-28 00:00:00 2021-03-28 00:00:00 Outpatient JOSELINE GOLDBERG [id number] [facility] 2021-03-28 00:00:00 2021-03-28 00:00:00 Outpatient JOSELINE GOLDBERG [id number] [facility] 2021-03-16 10:20:00 2021-03-16 10:20:00 Outpatient LAB90 JOSELINE GOLDBERG [id number] [facility] 2021-03-16 09:35:00 2021-03-16 09:35:00 Outpatient LAB90 JOSELINE GOLDBERG [id number] [facility] 2021-03-15 15:15:00 2021-03-15 15:45:00 [facility] 1.2.840.114 350.1.13.13 1.2.7.2.686 [id number] [facility] 2021-03-15 00:00:00 2021-03-15 00:00:00 Outpatient GISELLA LIND [id number] [facility] 2021-03-15 00:00:00 2021-03-15 00:00:00 Outpatient GISELLA LIND [id number] [facility] Results Test Description Test Time Test Comments Results Resul t Comments Source XR KNEE 3 VW RIGHT 2023-05-19 3 22:42:42 XR KNEE 3 VW RIGHT HISTORY: ?right knee pain COMPARISON: ?none available. Findings:The osseous structures are intact. Tricompartmental mild osteoarthrosis.Small knee joint effusion.Mild soft tissue edema. ?No abnormal soft tissue calcification. [facility]2022-11-20 10:43:53* Test Item Value Reference Range Interpretation Comme nts HGB A1C (test code = 4548-4) 5.7 % 4.0-5.7 JAY (test code = JAY) Reference RangesNormal: <5.7%Prediabetes: 5.7 - 6.4%Diabetes: > 6.5% Lab Interpretation (test code = 21229-4) [facility] [id number] 06:15:25* Test Item Value Reference Range Interpretation Comme nts FERRITIN (test code = 3686225331) 36.6 ng/mL 18.0-464.0 JAY (test code = JAY) Biotin has been reported to cause a negative bias, interpret results relative to patient's use of biotin. Lab Interpretation (test code = 85559-3) Normal [facility] HospitalIRON [id number] 05:48:00* Test Item Value Reference Range Interpretation Comme nts IRON (test code = 8998722183) 109 ug/dL 50-160 TIBC (test code = 1612976955) 387 ug/dL 250-410 % FE SAT (test code = 3139121000) 28 % 20-50 Lab Interpretation (test cod e = 99220-2) Normal [facility] [id number] 05:10:55* Test Item Value Reference Range Interpretation Comme nts FREE T4 (test code = 5598938759) 1.12 See_Comment [Automated messa ge] The system which generated this result transmitted reference range: 0.78 - 2.20 ng/dL:. The reference range was not used to interpret this result as normal/abnormal. Lab Interpretation (test code = 07606-2) Normal [facility] HospitalSEDIMENTATION [id number] 04:03:25* Test Item Value Reference Range Interpretation Comme nts ESR (test code = 62792-5) 2 See_Comment [Automated message] The system which generated this result transmitted reference range: 2 - 30 mm/HR. The reference range was not used to interpret this result as normal/abnormal. Lab Interpretation (test code = 09287-8) Normal [facility] HospitalN-TERMINAL [id number] 03:50:48* Test Item Value Reference Range Interpretation Comme nts NT-proBNP (test code = 35222-4) <=125 Lab Interpretation (test cod e = 54701-0) Normal [facility] HospitalTHYROID STIMULATING [id number] 03:15:04 * Test Item Value Reference Range Interpretation Comme nts TSH (test code = 4332681982) 8.65 See_Comment H [Automated messa ge] The system which generated this result transmitted reference range: 0.45 - 4.70 mIU/L. The reference range was not used to interpret this result as normal/abnormal. Lab Interpretation (test code = 99340-3) Abnormal [facility] HospitalTROPONIN [id number] 02:56:39* Test Item Value Reference Range Interpretation Comme nts TROPONIN I (test code = 5965409841) 0.002 ng/mL <=0.034 JAY (test code = [...] of biotin. Lab Interpretation (test code = 92103-6) Normal [facility] Hospital[facility]I METABOLIC PANEL (NA, K, CL, CO2, GLUCOSE, BUN, CREATININE, CA)2022-11-20 02:40:39* Test Item Value Reference Range Interpretation Comme nts NA (test code = 4021345885) 135 mmol/L 135-145 K (test code = 5571294446) 4.1 mmol/L 3.5-5.0 CL (test code = 7688506556) 104 mmol/L 98-108 CO2 TOTAL (test code = 1034440514) 23 mmol/L 23-31 AGAP (test code = 7547150076) 8 2-16 BUN (test code = 5287342228) 14 mg/dL 7-23 GLUCOSE (test code = 0865146136) 100 mg/dL 70-110 CREATININE (test code = 9027425700) 0.67 mg/dL 0.60-1.25 CALCIUM (test code = 2009370167) 9.0 mg/dL 8.6-10.6 eGFR (test code = 9535541099) 139.3 mL/min/1.73m2 JAY (test code = JAY) [...] or urine or abnormalities in imaging tests). [facility] Hospital[facility] FUNCTION PANEL (92901) (ALB,T.PRO,BILI T,BU/BC,ALT,AST,ALK PHOS)2022-11-20 02:40:39* Test Item Value Reference Range Interpretation Comme nts TOTAL BILI (test code = 1528230208) 0.4 mg/dL 0.1-1.1 BILI UNCON (test code = 0869566347) 0.4 mg/dL 0.1-1.1 BILI CONJ (test code = 3297186546) 0.0 mg/dL 0.0-0.3 T PROTEIN (test code = 1148947713) 7.3 g/dL 6.3-8.2 ALBUMIN (test code = 8692424714) 4.6 g/dL 3.5-5.0 ALK PHOS (test code = 5871268438) 42 U/L 34-122 ALTv (test code = 1742-6) 86 U/L 5-50 H AST(SGOT) (test code = 1520779189) 41 U/L 13-40 H Lab Interpretation (test cod e = 34627-4) Abnormal [facility] WITH [id number] 02:33:58* Test Item Value Reference Range Interpretation Comme nts WBC (test code = 6690-2) 9.15 See_Comment [Automated [employer]] The system which generated this result transmitted reference range: 4.20 - 10.70 10*3/?L. The reference range was not used to interpret this result as normal/abnormal. RBC (test code = 789-8) 5.12 See_Comment [Automated [employer]] The system which generated this result transmitted [...] g/dL 31.2-35.0 H RDW-SD (test code = 83436-9) 39.2 fL 38.5-51.6 RDW-CV (test code = 788-0) 12.5 % 12.1-15.4 PLT (test code = 777-3) 220 See_Comment [Automated messa ge] The system which generated this result transmitted reference range: 150 - 328 10*3/?L. The reference range was not used to interpret this result as normal/abnormal. MPV (test code = 33736-5) 11.8 fL 9.8-13.0 NRBC/100 WBC (test code = 0235506776) 0.0 See_Comment [Automated me ssage] The system which generated this result transmitted reference range: 0.0 - 10.0 /100 WBCs. The reference range was not used to interpret this result as normal/abnormal. NRBC x10^3 (test code = 2539535247) See_Comment [Automated messa ge] The system which generated this result transmitted reference range: 10*3/?L. The reference range was not used to interpret this result as normal/abnormal. GRAN MAT (NEUT) % (test code = 770-8) 68.5 % IMM GRAN % (test code = 9942773702) 0.30 % LYMPH % (test code = 736-9) 20.9 % MONO % (test code = 5905-5) 7.5 % EOS % (test code = 713-8) 2.3 % BASO % (test code = 706-2) 0.5 % GRAN MAT x10^3(ANC) (test code = 5738349491) 6.26 10*3/uL 1.99-6.95 IMM GRAN x10^3 (test code = 9398021176) 0.03 10*3/uL 0.00-0.06 LYMPH x10^3 (test code = 731-0) 1.91 10*3/uL 1.09-3.23 MONO x10^3 (test code = 742-7) 0.69 10*3/uL 0.36-1.02 EOS x10^3 (test code = 711-2) 0.21 10*3/uL 0.06-0.53 BASO x10^3 (test code = 704-7) 0.05 10*3/uL 0.01-0.09 Lab Interpretation (test code = 82720-3) [facility] (59692)2022-09-25 13:24:42* Test Item Value Reference Range Interpretation Comme nts NA (test code = 5378693509) 138 mmol/L 135-145 K (test code = 0500499945) 3.7 mmol/L 3.5-5.0 CL (test code = 4550866101) 102 mmol/L 98-108 CO2 TOTAL (test code = 1382981862) 25 mmol/L 23-31 AGAP (test code = 0812204900) 11 2-16 BUN (test code = 7634052609) 15 mg/dL 7-23 GLUCOSE (test code = 6276114047) 119 mg/dL 70-110 H CREATININE (test code = 6775573749) 0.80 mg/dL 0.60-1.25 TOTAL BILI (test code = 7744011155) 0.5 mg/dL 0.1-1.1 CALCIUM (test code = 6526680247) 8.7 mg/dL 8.6-10.6 T PROTEIN (test code = 9466181576) 7.8 g/dL 6.3-8.2 ALBUMIN (test code = 7279978610) 4.5 g/dL 3.5-5.0 ALK PHOS (test code = 3487091480) 45 U/L 34-122 ALTv (test code = 1742-6) 82 U/L 5-50 H AST(SGOT) (test code = 7807790145) 44 U/L 13-40 H eGFR (test code = 6877795413) 113.5 mL/min/1.73m2 JAY (test code = JAY) [...] imaging tests). Lab Interpretation (test code = 24788-7) Abnormal [facility] 13:24:02* Test Item Value Reference Range Interpretation Comme nts LIPASE (test code = 0259918102) 290 U/L 0-220 H Lab Interpretation (test cod e = 33555-2) Abnormal [facility] WITH [id number] 13:10:59* Test Item Value Reference Range Interpretation Comme nts WBC (test code = 6690-2) 8.31 See_Comment [Automated [employer]] The system which generated this result transmitted reference range: 4.20 - 10.70 10*3/?L. The reference range was not used to interpret this result as normal/abnormal. RBC (test code = 789-8) 5.34 See_Comment [Automated [employer]] The system which generated this result transmitted [...] g/dL 31.2-35.0 H RDW-SD (test code = 39619-2) 38.1 fL 38.5-51.6 L RDW-CV (test code = 788-0) 12.4 % 12.1-15.4 PLT (test code = 777-3) 202 See_Comment [Automated messa ge] The system which generated this result transmitted reference range: 150 - 328 10*3/?L. The reference range was not used to interpret this result as normal/abnormal. MPV (test code = 26659-5) 11.9 fL 9.8-13.0 NRBC/100 WBC (test code = 1427009238) 0.0 See_Comment [Automated [employer] ssage] The system which generated this result transmitted reference range: 0.0 - 10.0 /100 WBCs. The reference range was not used to interpret this result as normal/abnormal. NRBC x10^3 (test code = 6592993610) See_Comment [Automated [employer]] The system which generated this result transmitted reference range: 10*3/?L. The reference range was not used to interpret this result as normal/abnormal. GRAN MAT (NEUT) % (test code = 770-8) 70.7 % IMM GRAN % (test code = 6008219823) 0.80 % LYMPH % (test code = 736-9) 18.4 % MONO % (test code = 5905-5) 7.0 % EOS % (test code = 713-8) 2.6 % BASO % (test code = 706-2) 0.5 % GRAN MAT x10^3(ANC) (test code = 9255336826) 5.87 10*3/uL 1.99-6.95 IMM GRAN x10^3 (test code = 4935560154) 0.07 10*3/uL 0.00-0.06 H LYMPH x10^3 (test code = 731-0) 1.53 10*3/uL 1.09-3.23 MONO x10^3 (test code = 742-7) 0.58 10*3/uL 0.36-1.02 EOS x10^3 (test code = 711-2) 0.22 10*3/uL 0.06-0.53 BASO x10^3 (test code = 704-7) 0.04 10*3/uL 0.01-0.09 Lab Interpretation (test code = 79618-8) Abnormal [facility]2022-[facility]-02 18:18:55* Test Item Value Reference Range Interpretation Comme nts MAGNESIUM (test code = 1689376995) 1.6 mg/dL 1.7-2.4 L Lab Interpretation (test cod e = 46152-4) Abnormal [facility]OLIC PAN[facility] (69949)2021-04-18 18:18:35* Test Item Value Reference Range Interpretation Comme nts NA (test code = 1560551790) 136 mmol/L 135-145 K (test code = 4878993214) 4.6 mmol/L 3.5-5.0 CL (test code = 1090764644) 102 mmol/L 98-108 CO2 TOTAL (test code = 0809552262) 24 mmol/L 23-31 AGAP (test code = 9789013148) 2-16 BUN (test code = 4004622585) 12 mg/dL 7-23 GLUCOSE (test code = 5988450650) 95 mg/dL 70-110 CREATININE (test code = 2065757936) 0.78 mg/dL 0.60-1.25 TOTAL BILI (test code = 4001744051) 0.6 mg/dL 0.1-1.1 CALCIUM (test code = 4632708027) 9.3 mg/dL 8.6-10.6 T PROTEIN (test code = 3072972987) 7.1 g/dL 6.3-8.2 ALBUMIN (test code = 8419223030) 4.6 g/dL 3.5-5.0 ALK PHOS (test code = 1542174455) 54 U/L 34-122 ALTv (test code = 1742-6) 53 U/L 5-50 H AST(SGOT) (test code = 4195105208) 37 U/L 13-40 eGFR (test code = 6229274368) mL/min/1.73m2 JAY (test code = JAY) Association [...] imaging tests). Lab Interpretation (test code = 00269-1) [facility]normal [facility] 18:18:35* Test Item Value Reference Range Interpretation Comme nts LIPASE (test code = 4590765820) 49 U/L 0-220 Lab Interpretation (test cod e = 06446-3) Normal [facility] WITH [id number] 18:05:30* Test Item Value Reference Range Interpretation Comme nts WBC (test code = 6690-2) See_Comment H [Automated [employer]] The system which generated this result transmitted reference range: 4.20 - 10.70 10*3/?L. The reference range was not used to interpret this result as normal/abnormal. RBC (test code = 789-8) See_Comment [Automated [employer]] The system which generated this result transmitted [...] 35.0 g/dL 31.2-35.0 RDW-SD (test code = 76847-4) 37.9 fL 38.5-51.6 L RDW-CV (test code = 788-0) 12.5 % 12.1-15.4 PLT (test code = 777-3) See_Comment [Automated messa ge] The system which generated this result transmitted reference range: 150 - 328 10*3/?L. The reference range was not used to interpret this result as normal/abnormal. MPV (test code = 32603-1) 12.1 fL 9.8-13.0 NRBC/100 WBC (test code = 3990435844) See_Comment [Automated [employer] ssage] The system which generated this result transmitted reference range: 0.0 - 10.0 /100 WBCs. The reference range was not used to interpret this result as normal/abnormal. NRBC x10^3 (test code = 1350897072) <0.01 See_Comment [Automated [employer]] The system which generated this result transmitted reference range: 10*3/?L. The reference range was not used to interpret this result as normal/abnormal. GRAN MAT (NEUT) % (test code = 770-8) 72.0 % IMM GRAN % (test code = 3339155715) 0.60 % LYMPH % (test code = 736-9) 19.4 % MONO % (test code = 5905-5) 6.7 % EOS % (test code = 713-8) 1.0 % BASO % (test code = 706-2) 0.3 % GRAN MAT x10^3(ANC) (test code = 5581354392) 8.94 10*3/uL 1.99-6.95 H IMM GRAN x10^3 (test code = 9769423800) 0.08 10*3/uL 0.00-0.06 H LYMPH x10^3 (test code = 731-0) 2.41 10*3/uL 1.09-3.23 MONO x10^3 (test code = 742-7) 0.83 10*3/uL 0.36-1.02 EOS x10^3 (test code = 711-2) 0.13 10*3/uL 0.06-0.53 BASO x10^3 (test code = 704-7) 0.04 10*3/uL 0.01-0.09 Lab Interpretation (test code = 31419-7) Abnormal [facility] Notes Date/Time Note Provider Source 2023-10-01 16:55:00 [...] accompanied by significant other. Nicolette Olvera RN [facility] 2023-10-01 15:56:56 Pt states, "I just came from my PCP. They wanted me to come here to get more evaluated for my hemmorids. I spoke to a entry level marketing representative on the phone who said I could come here to go to the ER and have them possibly surgically removed. The pain is a 15 on the 10 scale." Pt appears in no acute distress and appears to be sitting comfortably. Domi Cazares RN [facility] 2023-10-01 15:51:00 [facility] Emergency Department Note Patient Name: Angel Chaney Date of : 1990 33 year old male Treatment Room: [facility] ED [facility] TEZ/KIZZY Primary Care Physician: Gisella Lind Patient Escorted [...] ED Events Date/Time Event User Comments 10/01/23 162 Medical Screening Begins JULIANA BAIRD DO -- 10/01/23 162 First Provider Evaluation JULIANA BAIRD DO -- [...] follow-up Gisella Lind MD Specialty: -FAMILY MEDICINE [place] [address] [facility] [place] [id number] Instructions: As needed Electronically signed by: Juliana Baird DO 10/01/23 1636 T [facility] 2023-10-01 13:39:27 Chief Complaint Patient presents with Hemorrhoids Hemorrhoid issues. Bright red and dark blood in stool. Increased pain. Mitzi Paniagua MA II T [facility] 2023-08-12 12:41:08 Pt given printed and [...] with steady gait, in no apparent distress, [facility] 2023-08-12 11:36:45 Patient arrived ambulatory c/o of lower back pain that started Friday. Denies any injury. States pain is shooting down his right leg. Attempted heating pad and ibuprofen at home with no relief. Genoveva Stapleton RN [facility] - Health 2023-08-12 11:30:00 [facility] Emergency Department Note Demographics Patient Name: Angel Chaney Date of : 1990 33 year old Treatment Room: [facility] ED RTA POOL/ADERTA-PL Primary Care Physician: Gisella Lind Pre Hospital Care Patient Escorted by: Family [5] Mode of Arrival: Personal means [1] EMS Treatment Prior to ED Arrival: [employer] [facility] treatment: Analgesic [employer] treatment comments: ibuprofen around 7 am ED [...] taking these medications No medications on file [employer] is used frequently and may produce errors. Promptly contact for obvious discrepancies. Willian Perez MD, FACEP, FAAEM Ms Access Database Developer of Emergency and Internal Medicine [facility], [facility] #[id number] Willian Perez MD 08/12/23 [id number] T [facility] 2023-06-28 20:21:17 Pt discharged with diagnosis of raccoon bite. Printed and verbal instructions reviewed with and given to patient. Prescriptions given x 1. Pt verbalized understanding of teaching, medications, and recommended follow-up. Denies questions or concerns at this time. Pt ambulatory at discharge. Appears in no apparent distress. No ataxia noted. Accompanied by family member. Referral sent to for follow-up rabies vaccinations. T [facility] 2023-06-28 19:48:06 Applied nonstick drsg and secured w/ kerlix. Educated on s/sx infection. Patient and able to teach back. Medicated per EMAR. Awaiting DC orders. T [facility] 2023-06-28 19:33:06 Order rec'd for 800 mg ibuprofen per provider. T [facility] 2023-06-28 18:50:00 Pt alert, color improved, A&OX4. remains in room. Medicated per EMAR. T [facility] 2023-06-28 18:42:00 During infiltration of medication to left thumb by provider pt noted to hyperventilate, vagal down, and syncope. in room. Reclined chair for safety, applied cool compresses to neck and forehead. VSS, HR new but rising. RR even, unlabored. Pallor and diaphoresis noted during episode. [facility] 2023-06-28 17:45:00 Placed pt's left hand in sterile water and hibaclens soak. T [facility] 2023-06-28 16:45:34 Patient states: "About 4 hours ago I was attacked by a raccoon." Reports bite to left thumb. Hazel Cote RN [facility] 2023-05-31 18:29:09 Pt given printed and verbal [...] in no apparent distress, Viktoriya Frias RN [facility] 2023-05-31 17:03:57 Patient states: "About 3 weeks ago I fell on my right knee and it's been killing me ever since" Hazel Cote RN [facility] 2023-05-31 17:00:00 [facility] Emergency Department Note Patient Name: Angel Chaney Date of : 1990 33 year old male Treatment Room: [facility] ED [facility] Primary Care Physician: Gisella Lind Patient Escorted by: Family [5] Mode of Arrival: Personal means [1] EMS Treatment Prior to ED Arrival: [employer] treatment: Medication (comment) [employer] treatment comments: rx pain meds Travel and [...] DO -- ED COURSE Diagnosis/Impression as of 05/31/23 1753 Acute pain of right knee Procedures: Procedures [...] Follow-up: Electronically signed by: India Dickey DO 05/31/231752 [facility] 2023-05-23 09:19:11 Chief Complaint Patient presents with Knee Pain RIGHT KNEE PAIN FOR 12 YEARS. HE FELL LAST FRIDAY AND THE PAIN HAS FLARED UP. HE HAS NEVER HAD ANY TREATMENT FOR THE PAIN. NO XRAYS. Mitzi Paniagua MA II Mitzi Paniagua MA, II [facility] 2023-03-18 13:37:42 Patient discharged with diagnosis of bronchitis. Follow up with pcp. Take rx as prescribed. Verbalized understanding. [facility] 2023-03-18 12:36:21 Cough and sore throat x 1 week. 2 weeks ago he was diagnosed with covid. Coughing up dark green sputum. E Malone RN [facility] 2023-02-28 20:53:41 Pt given printed and verbal [...] with steady gait, in no apparent distress E Peña RN [facility] 2023-02-28 19:44:18 Pt presents with cold symptoms since last night, bodyaches, cough, sore throat and loss of taste and smell. E Ji RN [facility] 2022-09-28 11:03:07 Formatting of this n ote [...] in no apparent distress, James Malone RN [facility] 2022-09-28 09:29:34 Formatting of this n ote [...] time of triage patient has no pain. Viktoriya Frias RN [facility] 2022-09-25 09:52:48 Formatting of this n ote [...] steady gait out of the ER.Escorted by MAIKOL. Dionne Artis RN T [facility] 2022-09-25 07:38:45 Formatting of this n ote [...] of plan of care. Dionne Artis RN [facility] 2022-09-25 07:08:48 Formatting of this n ote might be different from the original. Abd pain ~ 1 week with occasional nausea/vomiting - last emesis episode this morning prior to ER arrival. Points to R/L lower abdominal pain when describing pain. Denies shortness of breath , chest pain, fever, chills, and diarrhea. Hx - Ulcers Dionne Artis RN [facility] 2022-09-06 13:52:37 Formatting of this n ote [...] having at this time. VSS, medications reconciled. [facility]
--- NOTE | 2024-04-18 21:44 | ER ---
Nurse's Notes [facility] Name: Angel Osborne Age: 34 yrs Sex: Male : 1990 Arrival Date: 04/18/2024 Time: 21:07 Bed IW1 Private MD: Diagnosis: Influenza due to identified novel influenza A virus Presentation: 04/18 21:37 Chief complaint: Patient states: feeling bad and running fever for three days. bm8 Coronavirus screen: At this time, the client does not indicate any symptoms associated with coronavirus-19. Ebola Screen: Patient negative for fever greater than or equal to 101.5 degrees Fahrenheit, and additional compatible Ebola Virus Disease symptoms Patient denies exposure to infectious person. Patient denies travel to an Ebola-affected area in the 21 days before illness onset. No symptoms or risks identified at this time. Initial Sepsis Screen: Does the patient meet any 2 criteria? No. Patient's initial sepsis screen is negative. Does the patient have a suspected source of infection? No. Patient's initial sepsis screen is negative. Risk Assessment: Do you want to hurt yourself or someone else? Patient reports no desire to harm self or others. Onset of symptoms was April 16, 2024. 21:37 Method Of Arrival: Ambulatory bm8 21:37 Acuity: MIKE 3 bm8 Triage Assessment: 21:39 General: Appears in no apparent distress. comfortable, Behavior is calm, cooperative, bm8 appropriate for age. Pain: Complains of pain in generalized body Pain currently is 5 out of 10 on a pain scale. Quality of pain is described as aching. EENT: Nares with drainage noted bilaterally Reports nasal congestion nasal discharge. Neuro: No deficits noted. Level of Consciousness is awake, alert, obeys commands, Oriented to person, place, time, situation, Appropriate for age. Cardiovascular: Denies chest pain, Heart tones S1 S2 present Capillary refill < 3 seconds in bilateral fingers Patient's skin is warm and dry. Respiratory: Airway is patent Respiratory effort is even, unlabored, Respiratory pattern is regular, symmetrical, Breath sounds are clear bilaterally. GI: No signs and/or symptoms were reported involving the gastrointestinal system. : No signs and/or symptoms were reported regarding the genitourinary system. Derm: No signs and/or symptoms reported regarding the dermatologic system. Musculoskeletal: No signs and/or symptoms reported regarding the musculoskeletal system. Historical: - Allergies: 21:39 NKA; bm8 - Home Meds: 21:39 pantoprazole oral [Active]; Trazodone Oral [Active]; bm8 - PMHx: 21:39 acid reflux; Depression; hemorrhoids; bm8 - PSHx: 21:39 Hemorrhoidectomy; bm8 - Immunization history:: Adult Immunizations up to date. - Infectious Disease History:: Denies. - Social history:: Smoking status: Patient denies any tobacco usage or history of. Screenin:41 [facility] ED Fall Risk Assessment (Adult) History of falling in the last 3 months, bm8 including since admission No falls in past 3 months (0 pts) Confusion or Disorientation No (0 pts) Intoxicated or Sedated No (0 pts) Impaired Gait No (0 pts) Mobility Assist Device Used No (0 pt) Altered Elimination No (0 pt) Score/Fall Risk Level 0 - 2 = Low Risk Oriented to surroundings, Maintained a safe environment, Educated pt \T\ family on fall prevention, incl call for assistance when getting out of bed, Assessed \T\ reinforced patient's understanding of fall precautions, Hourly rounding (assess needs \T\ fall precautionary measures) done, Used ambulatory aids as needed (educated on \T\ assisted with), Used gait belt as appropriate. Abuse screen: Denies threats or abuse. Nutritional screening: No deficits noted. Tuberculosis screening: No symptoms or risk factors identified. Assessment: 21:41 Reassessment: seee triage assessment. bm8 Vital Signs: 21:37 BP 126 / 79; Pulse 96; Resp 18; Temp 99.7; Pulse Ox 95% ; Weight 127.01 kg; Height 6 bm8 ft. 0 in. ; Pain 8/10; 21:37 Body Mass Index 37.97 (127.01 kg, 182.88 cm) bm8 21:37 Pain Scale: Adult bm8 Gabriel Coma Score: 21:41 Eye Response: spontaneous(4). Motor Response: obeys commands(6). Verbal Response: bm8 oriented(5). Total: 15. ED Course: 21:09 Patient arrived in ED. [email or web address] 21:35 Ana Hall FNP-C is [facility]. kb 21:35 Carlos Jamil MD is Attending Physician. kb 21:39 Triage completed. bm8 21:39 Arm band placed on right wrist. bm8 21:41 Patient has correct armband on for positive identification. Provided Education on: post bm8 er care. Client placed on continuous cardiac and pulse oximetry monitoring. NIBP monitoring applied. Pulse ox on. NIBP on. Warm blanket given. Verbal reassurance given. 21:41 No provider procedures requiring assistance completed. Patient did not have IV access bm8 during this emergency room visit. Administered Medications: No medications were administered Medication: 21:41 VIS not applicable for this client. bm8 Outcome: 21:41 Discharged to home ambulatory, bm8 21:41 Condition: stable 21:41 Discharge instructions given to patient, family, Instructed on discharge instructions, follow up and referral plans. no drinking with medication, no driving heavy equipment, medication usage, safety practices, Demonstrated understanding of instructions, follow-up care, medications, 21:43 Discharge ordered by . kb 21:52 Patient left the ED. [email or web address] Signatures: Ana Hall, JASMYNE-C JASMYNE-Cora Randlej6 Chio Lopez, RN RN vc1 Bj Valente, RN RN bm8
--- NOTE | 2024-04-18 21:44 | EDPHYS ---
Physician Documentation [facility] Name: Angel Osborne Age: 34 yrs Sex: Male : 1990 Arrival Date: 04/18/2024 Time: 21:07 Bed IW1 Private MD: ED Physician Carlos Jamil HPI: 04/18 21:51 This 34 yrs old Male presents to ER via Ambulatory with complaints of Flu Symptoms. kb 21:51 Pt is a 34 year old male who presents for cough, congestion, bodyaches, fever and kb chills that started 3 days ago. tested positive for flu. Denies shortness of breath. Historical: - Allergies: 21:39 NKA; bm8 - Home Meds: 21:39 pantoprazole oral [Active]; Trazodone Oral [Active]; bm8 - PMHx: 21:39 acid reflux; Depression; hemorrhoids; bm8 - PSHx: 21:39 Hemorrhoidectomy; bm8 - Immunization history:: Adult Immunizations up to date. - Infectious Disease History:: Denies. - Social history:: Smoking status: Patient denies any tobacco usage or history of. ROS: 21:51 Constitutional: As per HPI kb Exam: 21:51 Constitutional: This is a well developed, well nourished patient who is awake, alert, kb and in no acute distress. Head/Face: Normocephalic, atraumatic. ENT: Moist Mucous membranes Cardiovascular: Regular rate Respiratory: Respirations even and unlabored. No increased work of breathing. Talking in full sentences Abdomen/GI: Soft, non-tender. No distention Skin: Warm, dry with normal turgor. Normal color. MS/ Extremity: Pulses equal, no cyanosis. Neurovascular intact. Full, normal range of motion. Neuro: Awake and alert, GCS 15, oriented to person, place, time, and situation. Vital Signs: 21:37 BP 126 / 79; Pulse 96; Resp 18; Temp 99.7; Pulse Ox 95% ; Weight 127.01 kg; Height 6 bm8 ft. 0 in. ; Pain 8/10; 21:37 Body Mass Index 37.97 (127.01 kg, 182.88 cm) bm8 21:37 Pain Scale: Adult bm8 Mansfield Coma Score: 21:41 Eye Response: spontaneous(4). Motor Response: obeys commands(6). Verbal Response: bm8 oriented(5). Total: 15. MDM: 21:35 Medical Screening Exam initiated kb 21:52 Differential diagnosis: flu, covid, uri. Data reviewed: vital signs, nurses notes. Test kb considered but Not performed: Labs: flu test considered but result would not change plan of care. Counseling: I had a detailed discussion with the patient and/or guardian regarding the historical points, exam findings, and any diagnostic results supporting the discharge/admit diagnosis, the need for outpatient follow up, a family practitioner, to return to the emergency department if symptoms worsen or persist or if there are any questions or concerns that arise at home. Administered Medications: No medications were administered Disposition Summary: 04/18/24 21:43 Discharge Ordered Notes: Location: Home kb Condition: Stable kb Diagnosis - Influenza due to identified novel influenza A virus kb Followup: kb - With: Emergency Department - When: As needed - Reason: Worsening of condition Followup: kb - With: Private Physician - When: 2 - 3 days - Reason: Recheck today's complaints, Continuance of care, Re-evaluation by your physician Discharge Instructions: - Influenza, Adult, [id number] kb - Discharge Summary Sheet bm8 Forms: - Medication Reconciliation Form kb - Antibiotic Education kb - Prescription Opioid Use kb - Patient Portal Instructions kb - Leadership Thank You Letter kb - Work release form bm8 Signatures: Ana Hall FNP-C FNP-Bj Paul, RN RN bm8
[2024-04-18 22:31] VITALS: BP 126/79; TEMP 99.7; O2SAT 95
== END 2024-04-18 21:52 | disposition home or self-care (01) ==
LOC: ER 21:07
DX: J10.1 Influenza due to other identified influenza virus with other respiratory manifestations (principal)
CPT/HCPCS: 99283

== ENCOUNTER 2024-09-22 09:44 | Emergency (ER) | payer BC ==
--- OUTSIDE RECORDS SUMMARY | 2024-09-22 09:52 | XMS REPORT | Continuity of Care Document ---
Author Name Unknown Address [address] [facility] [place] [address] [facility] [place] Address [address] [facility] [place] [address] Care Team Providers Care Cable Way Operator Name Role Phone Marvin BENDER, Gisella De Paz Primary Care Physician THU DOBBS Attending Clinician Unavailable GISELLA LIND Attending Clinician Unava ilable MD JESUS Attending Clinician Unavailab le [id number] Attending Clinician Unavailable CORBY KAHN Attending Clinician Unavailab Corby Castillo NP Attending Clinician PIPPA REYNOSO Attending Clinician Unavailable ROSY Attending Clinician Unavailable MELIZA BENNETT Attending Clinician Unavailabl e LAB90 Attending Clinician Unavailable JOHN YIN Attending Clinician Unavailable JULIANA BAIRD Attending Clinician Unavailable JULIANA BAIRD Attending Clinician Unavailable Juliana Baird DO Attending Clinician RADHA HERNANDES Attending Clinician Unavailable WILLIAN PEREZ Attending Clinician Unavailable JAYES, TYE Attending Clinician Unavailable LEEANN RAMÍREZ Attending Clinician Unavailable Nurse, [facility] Attending Clinician Un available Ebrahim PUBLIC HE[facility] MICROBIOLOGISTLeeann Attending Clinician [phone] Unknown, Attending Attending Clinician Unavailab NO Guido Attending Clinician Unavailable No Nur MD Attending Clinician [phone] Kayla LIVINGSTON Attending Clinician Unavailable Darryl Owens MD Attending Clinician [phone] Kayla Scherer Attending Clinician [phone] JENY HAIDER Attending Clinician Unavailable INDIA DICKEY Attending Clinician Unavailab India Zamora DO Attending Clinician [phone] BANDAR RICHARDSON Attending Clinician Unavailable Bandar Richardson DO Attending Clinician [phone] LINDA SANFORD Attending Clinician Unavailab rica [facility] HE[facility] MICROBIOLOGISTLinda Attending Clinician +[phone] SHAE IGLLESPIE Attending Clinician Unavailable Shae Gillespie MD Attending Clinician +[phone] IVONNE SHULTZ Attending Clinician Unavailable Ivonne Shultz NP Attending Clinician + [phone] KACIE QUIROZ Attending Clinician Unavailable Doctor Unassigned, [place] Attending Clinician U navailable HAYDEN BRASWELL Attending Clinician Unavailable Jose Guadalupe Meraz MD Attending Clinician [phone] Hayden Braswell MD Attending Clinician [phone] CECIL CHATMAN Attending Clinician Unavailable MARAL GAMBLE Attending Clinician Unavailab Maral Wilson DO Attending Clinician [phone] KAIN RAJPUT Attending Clinician Unavailable Regulo PUBLIC HEALTH MICROBIOLOGISTKain Jaramillo Attending Clinician + [phone] IGGY WELLER Attending Clinician Unavaila Iggy Nichols Attending Clinician + [phone] MIHAI HAHN Attending Clinician Unavailable HARDY ZAVALA Attending Clinician UnavailHardy Casillas MD Attending Clinician + [phone] PARVEEN Attending Clinician Unavailable Gisella Lind MD Attending Clinician [phone] CORBY KAHN Admitting Clinician Unavailab [place] Zamora Admitting Clinician Unavailab BANDAR Pace Admitting Clinician Unavailable IVONNE SHULTZ Admitting Clinician Unavailable HAYDEN BRASWELL Admitting Clinician Unavailable Hayden Braswell MD Admitting Clinician [phone] DELLRICO Admitting Clinician Unavailable Kayla LIVINGSTON Admitting Clinician Unavailable Payers Payer Name Policy Type Policy Number Effective Date Expirati on Date Source [facility] 9 [id number] 2023 00:00:00 [facility] [id number] 2023 00:00:00 Problems Condition Name Condition Details Condition Category Status Onset Date Resolution Date Last Treatment Date Treating Clinician Comments Source Acute bronchitis due to other specified organisms Acute bronchitis due to other specified organisms Disease Active 4- 00:00: 00 [facility] Cough headache Cough headache Disease Active 4- 00:00: 00 [facility] Viral syndrome Viral syndrome Disease Active 4- 00:00: 00 [facility] Second degree hemorrhoid s Second degree hemorrhoid s Disease Active 10-22 00:00: 00 Joseline Seybold - Externa l Thrombosed hemorrhoid s Thrombosed hemorrhoid s Disease Active - 00:00: 00 Joseline Seybold - Externa l Post-op pain Post-op pain Disease Active - 00:00: 00 Joseline Seybold - Externa l Chest pain Chest pain Disease Active 2022-02 0- 00:00: 00 [facility] Obesity (BMI 30-39.9) Obesity (BMI 30-39.9) Disease Active 2022-02 0-03 00:00: 00 [facility] No known active problems No known active problems Disease [facility] Allergies, Adverse Reactions, Alerts Allergy Name Allergy Type Status Severity Reaction(s) Onset Date Inactive Date Treating Clinician Comments Source NO KNOWN ALLERGIE S Drug Class Active [facility] Social History Social Habit Start Date Stop Date Quantity Comments Source Gender identity [facility] History of tobacco use Passive smoker [facility] Alcoholic beverage intake 2024-05-19 00:00:00 2024-05-19 00:00:00 Current drinker of alcohol (finding) [facility] Alcohol intake 2023-05-31 00:00:00 2023-05-31 00:00:00 Current drinker of alcohol (finding) [facility] History of Social function 2022-11-20 00:00:00 2022-11-20 00:00:00 [facility] Tobacco use and exposure 2022-11-19 00:00:00 2022-11-19 00:00:00 Smokeless tobacco non-user [facility] Tobacco Comment 2022-11-19 00:00:00 2022-11-19 00:00:00 Patient states that he uses vapes with nicotine in replace of cigarettes [facility] Alcohol Comment 2022-11-19 00:00:00 2022-11-19 00:00:00 socially (once every few months) [facility] Exposure to SARS-CoV-2 (event) 2022-02-18 00:00:00 2022-02-28 15:26:[address] [facility] Sex 2021-03-15 13:13:16 2021-03-15 13:13:16 Male (finding) Joseline Bean - External Sex assigned at 1990 00:00:00 1990 00:00:00 [facility] Smoking Status Start Date Stop Date Source Tobacco smoking consumption unknown [facility] Smokes tobacco daily 2022-09-06 00:00:00 Joseline Bean - External Medications Ordered Medication Name Filled Medication Name Start Date Stop Date Current Medication? Ordering Clinician Indication Dosage Frequency Signature (SIG) Comments Components Source Mupirocin (BACTROBAN) 2 % apply externally Ointment 7-16 15:10: 29 09-01 00:00 :00 No 1{appli cation} Q.5D Apply 1 Applicatio n topically 2 times daily. Joseline trejo Valacyclovi r HCl (Valtrex) 500 MG oral Tablet 09-01 00:00: 00 Yes [id number] 500mg QD Take 1 tablet (500 mg total) by mouth daily. Joseline trejo Mupirocin (BACTROBAN) 2 % apply externally Ointment 09-01 00:00: 00 Yes [id number] 1{appli cation} Q.5D Apply 1 Applicatio n topically 2 times daily. Joseline trejo Tramadol HCl (ULTRAM) 50 MG oral Tablet 08-15 00:00: 00 Yes 50mg [id number] 3D Take 1 tablet (50 mg total) by mouth every 8 hours as needed. Joseline trejo Pantoprazol e Sodium 40 MG oral Tablet Delayed Response 07-19 00:00: 00 Yes [id number] 40mg QD Take 1 tablet (40 mg total) by mouth daily. Joseline trejo Trazodone HCl 150 MG oral Tablet 07-19 00:00: 00 Yes [id number] 150mg QD Take 1 tablet (150 mg total) by mouth nightly. Joseline trejo ibuprofen (IBU) tablet 600 mg 05-19 15:30: 00 05-19 16:01 :00 No 600mg 600 mg, Oral, ONCE, 1 dose, On Fri05/19/24 at 1030, POLA [facility] bromphenira mine-pseudo ephedrine-D M (BROMFED DM) 2-30-10 mg/5 mL syrup 05-19 00:00: 00 Yes [id number] 10mL Take 10 mL by mouth 4 (four) times daily as needed for Cough. [facility] methylPREDN ISolone (MEDROL, LAM,) 4 mg tablets 05-19 00:00: 00 Yes [id number] Take by mouth SEE-INSTRU CTIONS. follow package directions [facility] Pantoprazol e Sodium 40 MG oral Tablet Delayed Response 1-13 00:00: 07-19 00:00 :00 No [id number] 40mg QD TAKE 1 TABLET BY MOUTH EVERY DAY Joseline trejo Trazodone HCl 150 MG oral Tablet 2023-02 2-12 00:00: 00 07-19 00:00 :00 No [id number] 150mg QD Take 1 tablet (150 mg total) by mouth nightly. Joseline trejo Lidocaine HCl (Lidocaine Viscous HCl) 2 % mouth/throa t Solution - 00:00: 00 07-19 00:00 :00 No Joseline trejo HYDROcodone -Acetaminop hen (NORCO) 5-325 MG oral Tablet - 00:00: 00 07-19 00:00 :00 No 1{tbl} Q4H Take 1 tablet by mouth every 4 to 6 hours as needed. Joseline trejo linaCLOtide (Linzess) 145 MCG oral Capsule 09-30 00:00: 00 07-19 00:00 :00 No [id number] 145ug QD Take 1 capsule (145 mcg total) by mouth daily. Joseline trejo Dibucaine, Perianal, 1 % apply externally Ointment 09-30 00:00: 00 07-19 00:00 :00 No [id number] 3D Apply topically 3 times daily as needed. Joseline trejo Hydrocortis one Acetate 25 MG rectal Suppository 14 00:00: 00 07-19 00:00 :00 No 25mg Q.5D Apply 1 suppositor y (25 mg total) rectally 2 times daily. Joseline trejo Pantoprazol e Sodium 40 MG oral Tablet Delayed Response 7-16 00:00: 00 Yes [id number] 40mg QD take 1 tablet by mouth every day Joseline trejo dexamethaso ne sod phos PF injection 10 mg -25 17:30: 00 08-11 17:20 :00 No 10mg 10 mg, Intramuscu lar, ONCE, 1 dose, On Fri08/12/23 at 1230, 1 mL [facility] ketorolac (TORADOL) injection 30 mg 08-11 17:30: 00 08-11 17:22 :00 No 30mg 30 mg, Intramuscu lar, ONCE, 1 dose, On Fri08/12/23 at 1230, [facility] ibuprofen (IBU) tablet 800 mg 06-28 [...] 1 dose, On 06/28/23 at 1845, Routine [facility] mupirocin 2 % ointment 06-27 00:00: 00 Yes [id number] Apply to area(s) 3 (three) times daily. [facility] HYDROcodone -acetaminop hen (NORCO 5) 5-325 mg tablet 1 tablet 05-30 22:15: 00 05-30 22:36 :00 No 1{tbl} 1 tablet, Oral, ONCE, 1 dose, On 05/31/23 at 1715, [facility] Valacyclovi r HCl (Valtrex) 500 MG oral Tablet 05-23 00:00: 00 09-30 00:00 :00 No [id number] 500mg Q.5D Take 1 tablet (500 mg total) by mouth 2 times daily. Joseline trejo methylPREDN ISolone 4 MG oral Tablet Therapy Pack 05-22 00:00: 00 09-30 00:00 :00 No [id number] 1{lam} Take 1 lam by mouth See Admin Instructio ns Use as directed. Joseline trejo Celecoxib (CeleBREX) 200 MG oral Capsule -05 00:00: 00 09-30 00:00 :00 No [id number] 200mg Q.5D Take 1 capsule (200 mg total) by mouth 2 times daily. Joseline trejo Trazodone HCl 150 MG oral Tablet 2-03 00:00: 00 Yes [id number] 150mg QD Take 1 tablet (150 mg total) by mouth nightly. Joseline trejo benzonatate 100 mg capsule 03-18 00:00: 00 Yes [id number] 100mg Take 1 capsule by mouth 3 (three) times daily as needed for Cough. [facility] azithromyci n 250 mg tablet 03-18 00:00: 00 Yes [id number] 250mg Take 1 tablet by mouth in the morning. [facility] methylPREDN ISolone (MEDROL, LAM,) 4 mg tablets 03-18 00:00: 00 05-19 00:00 :00 No [id number] Take by mouth SEE-INSTRU CTIONS. follow package directions [facility] ibuprofen (IBU) tablet 600 mg 03-01 02:00: 00 03-01 01:58 :00 No 600mg 600 mg, Oral, ONCE, 1 dose, On Fri02/28/23 at 2000, POLA [facility] benzonatate 100 mg capsule 02-28 00:00: 00 Yes [id number] 100mg Take 1 capsule by mouth 3 (three) times daily as needed for Cough. [facility] Albuterol HFA 108 (90 Base) [...] 02-28 00:00: 00 03-06 05:59 :00 No [id number] 4mg Take 1 tablet by mouth every 8 (eight) hours as needed for Nausea and Vomiting (N/V) for up to 5 days. [facility] cefTRIAXone (ROCEPHIN) injection 500 mg 2022-02 08:30: 00 Yes 500mg 500 mg, Intramuscu lar, Q24H, First dose on 01/11/23 at 0230, Until Discontinu ed, POLA
Re ason for Anti-Infec tive: Empiric Therapy for Suspected Infection< br>Empiric Therapy Site: Urine
D uration of therapy: Once (ED) [facility] acetaminoph en (TYLENOL) tablet 650 mg 2022-02 07:30: 00 01-11 07:32 :00 No 650mg 650 mg, Oral, ONCE, 1 dose, On 01/11/23 at 0130, POLA [facility] Doxycycline Hyclate 100 MG oral Capsule 2022-02 00:00: 00 05-22 00:00 :00 No 100mg Take 1 capsule (100 mg total) by mouth 2 times daily. Joseline trejo ondansetron 4 mg disintegrat ing tablet 2022-02 00:00: 02-28 00:00 :00 No [id number] 4mg Take 1 tablet by mouth every 8 (eight) hours as needed for Nausea and Vomiting (N/V). [facility] Pantoprazol e Sodium 40 MG oral Tablet Delayed Response 2022-02 00:00: 00 Yes [id number] 40mg TAKE 1 TABLET BY MOUTH EVERY DAY Joseline trejo sulfur hexafluorid e microsphr (LUMASON) injection 5 mL 2022-02 16:15: 00 11-20 16:15 :00 No [id number] 5mL 5 mL, Intravenou s, ONCE, 1 dose, On Fri11/20/22 at 1115, Routine
receiving team member approving Restricted medication : HAYDEN BRASWELL [facility] pantoprazol e (PROTONIX) EC tablet 40 mg 2022-02 0 14:00: 00 Yes 40mg 40 mg, Oral, DAILY, First dose on Fri11/20/22 at 0900, Until Discontinu ed, Routine [facility] sennosides- docusate sodium (SENOKOT-S) 8.6-50 mg per tablet 1 tablet 2022-02 0 14:00: 00 Yes 1{tbl} 1 tablet, Oral, DAILY, First dose on Fri11/20/22 at 0900, Until Discontinu ed, Routine [facility] HYDROcodone -acetaminop hen (NORCO 5) 5-325 mg tablet 1 tablet 2022-02 0 03:15: 00 11-20 02:44 :00 No 1{tbl} 1 tablet, Oral, ONCE, 1 dose, On Fri11/19/22 at 2215, Routine [facility] ondansetron (ZOFRAN (PF)) injection 4 mg 2022-02 03:09: 48 Yes 4mg 4 mg, Slow IV Push, Q6HPRN, Nausea and Vomiting (N/V), Starting on Fri11/19/22 at 2209
Do ses of ondansetro n 16 mg and above need to be administer ed via IV piggyback. For Dose >=24mg ECG monitoring is advisable.
[facility] heparin (porcine) injection 5,000 Units 2022-02 0 03:00: 00 Yes 5000U 5,000 Units, Subcutaneo us, Q8H, First dose on Fri11/19/22 at 2200, Until Discontinu ed, Routine [facility] Lidocaine (LIDOCARE) 4 % patch 1 Patch 2022-02 0 02:30: 00 11-20 14:44 :00 No 1{patch } 1 Patch, Topical, Administer over 12 Hours, ONCE, 1 dose, On Fri11/19/22 at 2130, Routine [facility] sucralfate (CARAFATE) tablet 1 g 2022-02 0-04 02:00: 00 Yes 1g 1 g, Oral, AC+HS, First dose on Fri11/19/22 at 2100, Until Discontinu ed, Routine [facility] acetaminoph en (TYLENOL) tablet 650 mg 2022-02 0-04 01:22: 59 Yes 650mg 650 mg, Oral, Q6HPRN, Starting on Fri11/19/22 at 2022, Until Discontinu ed, Routine, Pain (scale 1-3) [facility] sucralfate 1 gram tablet 2022-02 0- 00:00: 00 12-05 04:59 :00 No [id number] 1g Take 1 tablet by mouth before meals and at bedtime for 14 days. [facility] Ondansetron (ZOFRAN) 4 MG oral TABLET DISPERSIBLE 2022-02 0-03 00:00: 00 09-30 00:00 :00 No [id number] 4mg [id number] 3D Take 1 tablet (4 mg total) by mouth every 8 hours as needed for nausea. Joseline trejo Pantoprazol e Sodium 40 MG oral Tablet Delayed Response 10-16 00:00: 00 Yes [id number] 40mg TAKE 1 TABLET BY MOUTH EVERY DAY Joseline trejo Metronidazo le 500 MG oral Tablet 10-15 00:00: 00 Yes [id number] 500mg Take 1 tablet (500 mg total) by mouth 2 times daily. Joseline trejo Valacyclovi r HCl (Valtrex) 500 MG oral Tablet 10-15 00:00: 00 Yes [id number] 500mg Take 1 tablet (500 mg total) by mouth 2 times daily. Joseline trejo sulfamethox azole-trime thoprim 800-160 mg per tablet 09-28 00:00: 00 10-06 04:59 :00 No [id number] 1{tbl} Take 1 tablet by mouth every 12 (twelve) hours for 7 days. [facility] ketorolac (TORADOL) injection 15 mg 09-25 14:45: 00 09-25 13:56 :00 No 15mg 15 mg, Slow IV Push, ONCE, 1 dose, [facility] 09[facility] (PF[facility] 4 mg 09-25 12:45: 00 09-25 12:43 :00 No 4mg 4 mg, Slow IV Push, ONCE, 1 dose, [facility]09/25/22 [facility] 0745[facility] maalox:diph enhydrAMINE :lidocaine 2 % viscous 1:1:1 (FIRST-MOUT HWASH BLM) oral suspension 15 mL 09-25 12:45: 00 09-25 12:42 :00 No 15mL 15 mL, Oral, ONCE, 1 dose, On Fri09/25/22 at 0745, Routine [facility] proMETHazin e 25 mg tablet 09-25 00:00: 00 11-20 00:00 :00 No [id number] 25mg Take 1 tablet by mouth every 6 (six) hours as needed for Nausea and Vomiting (N/V). [facility] pantoprazol e 40 mg EC tablet 09-06 00:00: 00 Yes 40mg Take 1 tablet by mouth. [facility] Hydrocortis one Acetate (Hemmorex-H C) 25 MG rectal Suppository 09-06 00:00: 00 05-21 00:00 :00 No [id number] 25mg Apply 1 suppositor y (25 mg total) rectally 2 times daily Joseline trejo NIFEdipine 0.2 % in Lidocaine 5 % 60 g compounded rectal ointment 09-06 00:00: 00 05-21 00:00 :00 No [id number] Apply 1 applicatio n. rectally 2 times daily (Apply pea-sized amount to fingertip and then apply just inside anus) Joseline trejo Mupirocin (BACTROBAN) 2 % apply externally Ointment 08-04 00:00: 00 09-30 00:00 :00 No [id number] 3D Apply 1 applicatio n. topically 3 times daily Joseline trejo mupirocin 2 % ointment 08-03 00:00: 00 Yes [id number] Apply to area(s) 3 (three) times daily. [facility] cephALEXin (KEFLEX) 500 mg capsule 08-03 00:00: 00 08-11 04:59 :00 No [id number] 500mg Take 1 capsule by mouth 4 (four) times daily for 7 days. [facility] doxycycline hyclate 100 mg capsule 08-03 00:00: 00 08-11 04:59 :00 No [id number] 100mg Take 1 capsule by mouth in the morning and 1 capsule in the evening. Do all this for 7 days. [facility] traZODone 150 mg tablet 06-28 00:00: 00 Yes 150mg Take 1 tablet by mouth. [facility] meclizine (TRAVEL-EAS E (MECLIZINE) ) tablet 25 mg 02-28 21:15: 00 02-28 21:26 :00 No 25mg 25 mg, Oral, ONCE, 1 dose, On Kimmy 02/28/22 at 1515, POLA [facility] meclizine 25 mg tablet 02-28 00:00: 00 09-28 00:00 :00 No 25mg Take 1 tablet by mouth. [facility] predniSONE 20 MG oral tablet 02-22 00:00: 00 Yes [id number] 20mg Take 1 tablet (20 mg total) by mouth daily Joseline trejo Ondansetron HCl 4 MG oral Tablet 02-22 00:00: 00 11-19 00:00 :00 No [id number] 4mg Q.[id number] 3D Take 1 tablet (4 mg total) by mouth every 8 hours as needed for nausea Joseline trejo Amoxicillin 500 MG oral Capsule 02-19 00:00: 00 Yes [id number] TAKE 1 CAPSULE BY MOUTH TWICE A DAY IN THE MORNING AND EVENING FOR 10 DAYS Joseline trejo meclizine (TRAVEL-EAS E (MECLIZINE) ) tablet 25 mg 2021-02 18:00: 00 02-13 18:02 :00 No 25mg 25 mg, Oral, ONCE, 1 dose, On Fri02/13/22 at 1200, POLA [facility] amoxicillin 500 mg capsule 2021-02 00:00: 00 02-24 05:59 :00 No [id number] 500mg Take 1 capsule by mouth in the morning and 1 capsule in the evening. Do all this for 10 days. [facility] meclizine 25 mg tablet 2021-02 00:00: 00 02-19 05:59 :00 No [id number] 25mg Take 1 tablet by mouth 3 (three) times daily as needed for Dizziness for up to 5 days. [facility] Trazodone HCl 150 MG oral Tablet - 00:00: 00 Yes 150mg Take 1 tablet (150 mg total) by mouth nightly Joseline trejo magnesium sulfate in water 2 gram/50 mL (4 %) infusion 2 g 04-18 20:15: 00 04-18 20:18 :00 No 2g 2 g, IV Piggyback, ONCE, 1 dose, On Fri04/18/21 at 1415, Routine [facility] iopamidol (ISOVUE 370-500 mL) injection 120 mL 04-18 19:15: 00 04-18 17:55 :00 No [id number] 120mL 120 mL, Intravenou s, ONCE, 1 dose, On Fri04/18/21 at 1315, Routine [facility] Trazodone HCl 150 MG oral Tablet 03-15 14:59: 18 Yes 150mg Take 150 mg by mouth nightly Joseline Bean Immunizations Ordered Immunization Name Filled Immunization Name Date Status Comments Source Human Rabies Vaccine From Chicken Fibroblast Culture (RABAVERT) 2023-07-12 00:00:[address] [facility] Human Rabies Vaccine From Chicken Fibroblast Culture (RABAVERT) 2023-07-01 00:00:00 Completed Human Rabies Vaccine From Chicken Fibroblast Culture (RABAVERT) 2023-06-28 00:00:[address] [facility] TD Pres-Free 2023-06-28 00:00:00 Completed SARS-COV-2 COVID-19 VACCINE - (MODERNA) 2021-07-17 00:00:00 Completed SARS-COV-2 COVID-19 VACCINE - (MODERNA) 2021-06-18 00:00:[address] [facility] Human Rabies Vaccine-PCEC Unknown Completed Joseline Seybold - External Human Rabies Vaccine-PCEC Unknown Completed Joseline Seybold - External Td- Tetanus & Diphtheria Vaccine (age 7+ years) Unknown Completed Joseline Seybol d - External Human Rabies Vaccine-PCEC Unknown Completed Joseline Seybold - External Human Rabies Vaccine-PCEC Unknown Completed Joseline Seybold - External Td- Tetanus & Diphtheria Vaccine (age 7+ years) Unknown Completed Joseline Seybol d - External Human Rabies Vaccine-PCEC Unknown Completed Joseline Seybold - External Human Rabies Vaccine-PCEC Unknown Completed Joseline Seybold - External Td- Tetanus & Diphtheria Vaccine (age 7+ years) Unknown Completed Joseline Seybol d - External Human Rabies Vaccine From Chicken Fibroblast Culture (RABAVERT) Unknown Completed [facility] TD Pres-Free Unknown Completed [facility] Human Rabies Vaccine From Chicken Fibroblast Culture (RABAVERT) Unknown Completed [facility] TD Pres-Free Unknown Completed [facility] SARS-COV-2 COVID-19 VACCINE - (MODERNA) Unknown Completed [facility] Human Rabies Vaccine From Chicken Fibroblast Culture (RABAVERT) Unknown Completed [facility] Human Rabies Vaccine From Chicken Fibroblast Culture (RABAVERT) Unknown Completed [facility] TD Pres-Free Unknown Completed [facility] SARS-COV-2 COVID-19 VACCINE - (MODERNA) Unknown Completed [facility] Human Rabies Vaccine From Chicken Fibroblast Culture (RABAVERT) Unknown Completed [facility] Human Rabies Vaccine From Chicken Fibroblast Culture (RABAVERT) Unknown Completed [facility] TD Pres-Free Unknown Completed [facility] SARS-COV-2 COVID-19 VACCINE - (MODERNA) Unknown Completed [facility] Human Rabies Vaccine From Chicken Fibroblast Culture (RABAVERT) Unknown Completed [facility] Human Rabies Vaccine From Chicken Fibroblast Culture (RABAVERT) Unknown Completed [facility] TD Pres-Free Unknown Completed [facility] SARS-COV-2 COVID-19 VACCINE - (MODERNA) Unknown Completed [facility] Human Rabies Vaccine From Chicken Fibroblast Culture (RABAVERT) Unknown Completed [facility] Human Rabies Vaccine From Chicken Fibroblast Culture (RABAVERT) Unknown Completed [facility] TD Pres-Free Unknown Completed [facility] SARS-COV-2 COVID-19 VACCINE - (MODERNA) Unknown Completed [facility] Human Rabies Vaccine From Chicken Fibroblast Culture (RABAVERT) Unknown Completed [facility] Vital Signs Vital Name Observation Time Observation Value Comments S ource Systolic blood pressure 2024-09-01 19:55:00 122 mm[Hg] Joseline Knowles ld - External Diastolic blood pressure 2024-09-01 19:55:00 76 mm[Hg] Joseline mccray - External Heart rate 2024-09-01 19:55:00 88 /min Chelsie Bean - External Body temperature 2024-09-01 19:55:00 36.44 Shivani Joseline Bean - External Respiratory rate 2024-09-01 19:55:00 18 /min Josleine Bean - External Body height 2024-09-01 19:55:00 182.9 cm Melly Bean - External Body weight 2024-09-01 19:55:00 121.11 kg Melly Bean - External BMI 2024-09-01 19:55:00 36.21 kg/m2 Melly Bean - External Oxygen saturation in Arterial blood by Pulse oximetry 2024-09-01 19:55:00 98 /min Joseline Seybo ld - External Systolic blood pressure 2024-07-19 18:31:00 124 mm[Hg] Joseline Kohlio ld - External Diastolic blood pressure 2024-07-19 18:31:00 78 mm[Hg] Joseline Knowles ld - External Heart rate 2024-07-19 18:31:00 87 /min Chelsie maldonado Seybold - External Body temperature 2024-07-19 18:31:00 36.83 Shivani Joseline Millsybold - External Respiratory rate 2024-07-19 18:31:00 18 /min Joseline Millsybold - External Body height 2024-07-19 18:31:00 182.9 cm Melly quinonez Seybold - External Body weight 2024-07-19 18:31:00 123.741 kg Melly quinonez Seybold - External BMI 2024-07-19 18:31:00 37.00 kg/m2 Melly quinonez Seybold - External Oxygen saturation in Arterial blood by Pulse oximetry 2024-07-19 18:31:00 100 /min Joseline Knowles ld - External Systolic blood pressure 2024-05-19 16:42:00 137 mm[Hg] [facility] Diastolic blood pressure 2024-05-19 16:42:00 91 mm[Hg] [facility] Heart rate 2024-05-19 16:42:00 78 /min [facility] Body temperature 2024-05-19 16:42:[address] [facility] Respiratory rate 2024-05-19 16:42:00 16 /min [facility] Oxygen saturation in Arterial blood by Pulse oximetry 2024-05-19 16:42:00 99 /min [facility] Body height 2024-05-19 15:09:00 182.9 cm [facility] Body weight 2024-05-19 15:09:00 122.471 kg [facility] BMI 2024-05-19 15:09:00 36.62 kg/m2 [facility] Systolic blood pressure 2023-10-01 20:58:00 144 mm[Hg] [facility] Diastolic blood pressure 2023-10-01 20:58:00 89 mm[Hg] [facility] Heart rate 2023-10-01 20:58:00 84 /[facility] 2023-10-01 20:58:[address] [facility] Respiratory rate 2023-10-01 20:58:00 14 /min [facility] Body height 2023-10-01 20:58:00 182.9 [facility] 2023-10-01 20:58:00 122.471 kg Univ [facility] BMI 2023-10-01 20:58:00 36.62 kg/m2 Univ [facility] Oxygen saturation in Arterial blood by Pulse oximetry 2023-10-01 20:58:00 99 /min [facility] Systolic blood pressure 2023-10-01 18:36:00 120 mm[Hg] Joseline Seybo ld - External Diastolic blood pressure 2023-10-01 18:36:00 76 mm[Hg] Joseline ybo ld - External Heart rate 2023-10-01 18:36:00 87 /min Kelse y Seybold - External Body temperature 2023-10-01 18:36:00 36.22 Shivani Joseline Seybold - External Respiratory rate 2023-10-01 18:36:00 15 /min Joseline Millsybold - External Body height 2023-10-01 18:36:00 182.9 cm Melly ey Seybold - External Body weight 2023-10-01 18:36:00 123.378 kg Melly ey Seybold - External BMI 2023-10-01 18:36:00 36.89 kg/m2 Melly ey Seybold - External Systolic blood pressure 2023-08-12 16:37:00 125 mm[Hg] [facility] Diastolic blood pressure 2023-08-12 16:37:00 92 mm[Hg] [facility] Heart rate 2023-08-12 16:37:00 93 /min Unive [facility] Body temperature 2023-08-12 16:37:[address] [facility] Respiratory rate 2023-08-12 16:37:00 18 /min [facility] Body height 2023-08-12 16:37:00 182.9 cm [facility] Body weight 2023-08-12 16:37:00 122.471 kg [facility] BMI 2023-08-12 16:37:00 36.62 kg/m2 [facility] Oxygen saturation in Arterial blood by Pulse oximetry 2023-08-12 16:37:00 96 /min [facility] Systolic blood pressure 2023-07-12 16:23:00 109 mm[Hg] [facility] Diastolic blood pressure 2023-07-12 16:23:00 74 mm[Hg] [facility] Heart rate 2023-07-12 16:23:00 61 /min Unive [facility] Body temperature 2023-07-12 16:23:[address] [facility] Respiratory rate 2023-07-12 16:23:00 12 /min [facility] Body weight 2023-07-12 16:23:00 122.925 kg [facility] BMI 2023-07-12 16:23:00 36.75 kg/m2 [facility] Oxygen saturation in Arterial blood by Pulse oximetry 2023-07-12 16:23:00 97 /min [facility] Systolic blood pressure 2023-07-05 17:17:00 135 mm[Hg] [facility] Diastolic blood pressure 2023-07-05 17:17:00 82 mm[Hg] [facility] Heart rate 2023-07-05 17:17:00 80 [facility] Body temperature 2023-07-05 17:17:[address] [facility] Respiratory rate 2023-07-05 17:17:00 18 /min [facility] Oxygen saturation in Arterial blood by Pulse oximetry 2023-07-05 17:17:00 100 /min [facility] Systolic blood pressure 2023-07-01 23:15:00 130 mm[Hg] [facility] Diastolic blood pressure 2023-07-01 23:15:00 87 mm[Hg] [facility] Heart rate 2023-07-01 23:15:00 83 /min Unive [facility] Body temperature 2023-07-01 23:15:[address] [facility] Respiratory rate 2023-07-01 23:15:00 14 /min [facility] Body height 2023-07-01 23:15:00 182.9 cm [facility] Body weight 2023-07-01 23:15:00 123.832 kg [facility] BMI 2023-07-01 23:15:00 37.03 kg/m2 [facility] Oxygen saturation in Arterial blood by Pulse oximetry 2023-07-01 23:15:00 97 /min [facility] Systolic blood pressure 2023-06-29 00:34:00 124 mm[Hg] [facility] Diastolic blood pressure 2023-06-29 00:34:00 85 mm[Hg] [facility] Heart rate 2023-06-29 00:34:00 74 /min Unive [facility] Body temperature 2023-06-29 00:34:[address] [facility] Oxygen saturation in Arterial blood by Pulse oximetry 2023-06-29 00:34:00 96 /min [facility] Respiratory rate 2023-06-28 23:48:00 14 /min [facility] Body weight 2023-06-28 22:32:00 123.968 kg [facility] BMI 2023-06-28 22:32:00 37.07 kg/m2 [facility] Body height 2023-06-28 21:46:00 182.9 cm [facility] Systolic blood pressure 2023-05-31 22:04:00 145 mm[Hg] [facility] Diastolic blood pressure 2023-05-31 22:04:00 85 mm[Hg] [facility] Heart rate 2023-05-31 22:04:00 84 /min Unive [facility] Body temperature 2023-05-31 22:04:[address] [facility] Respiratory rate 2023-05-31 22:04:00 16 /min [facility] Body height 2023-05-31 22:04:00 182.9 cm [facility] Body weight 2023-05-31 22:04:00 123.832 kg [facility] BMI 2023-05-31 22:04:00 37.03 kg/m2 Univ [facility] Oxygen saturation in Arterial blood by Pulse oximetry 2023-05-31 22:04:00 99 /min [facility] Systolic blood pressure 2023-05-23 14:15:00 [...] Systolic blood pressure 2023-03-18 18:37:00 116 mm[Hg] [facility] Diastolic blood pressure 2023-03-18 18:37:00 80 mm[Hg] [facility] Heart rate 2023-03-18 18:37:00 87 /min [facility] Body temperature 2023-03-18 18:37:[address] [facility] Respiratory rate 2023-03-18 18:37:00 18 /min [facility] Body weight 2023-03-18 18:37:00 120.203 kg [facility] 2023-03-18 18:37:00 35.94 kg/m2 [facility] Oxygen saturation in Arterial blood by Pulse oximetry 2023-03-18 18:37:00 99 /min [facility] Systolic blood pressure 2023-03-01 01:45:00 141 mm[Hg] [facility] Diastolic blood pressure 2023-03-01 01:45:00 86 mm[Hg] [facility] Heart rate 2023-03-01 01:45:00 92 /min Unive [facility] Body temperature 2023-03-01 01:45:[address] [facility] Respiratory rate 2023-03-01 01:45:00 16 /min [facility] Body height 2023-03-01 01:45:00 182.9 cm [facility] Body weight 2023-03-01 01:45:00 120.203 kg [facility] BMI 2023-03-01 01:45:00 35.94 kg/m2 [facility] Oxygen saturation in Arterial blood by Pulse oximetry 2023-03-01 01:45:00 100 /min [facility] Systolic blood pressure 2023-01-25 10:30:00 127 mm[Hg] [facility] Diastolic blood pressure 2023-01-25 10:30:00 84 mm[Hg] [facility] Heart rate 2023-01-25 10:30:00 77 /min Unive [facility] Body temperature 2023-01-25 10:30:[address] [facility] Respiratory rate 2023-01-25 10:30:00 18 /min [facility] Body height 2023-01-25 10:30:00 182.9 cm [facility] Body weight 2023-01-25 10:30:00 120.203 kg [facility] BMI 2023-01-25 10:30:00 35.94 kg/m2 [facility] Oxygen saturation in Arterial blood by Pulse oximetry 2023-01-25 10:30:00 99 /min [facility] Systolic blood pressure 2023-01-11 06:54:00 120 mm[Hg] [facility] Diastolic blood pressure 2023-01-11 06:54:00 69 mm[Hg] [facility] Heart rate 2023-01-11 06:54:00 61 /min Unive [facility] Body temperature 2023-01-11 06:54:[address] [facility] Oxygen saturation in Arterial blood by Pulse oximetry 2023-01-11 06:54:00 98 /min [facility] Respiratory rate 2023-01-11 03:19:00 18 /min [facility] Body height 2023-01-11 03:19:00 182.9 cm Univ [facility] Body weight 2023-01-11 03:19:00 122.471 kg Univ [facility] BMI 2023-01-11 03:19:00 36.62 kg/m2 Univ [facility] Systolic blood pressure 2022-12-02 13:34:00 126 mm[Hg] [facility] Diastolic blood pressure 2022-12-02 13:34:00 90 mm[Hg] [facility] Heart rate 2022-12-02 13:34:00 77 /min Unive [facility] Body temperature 2022-12-02 13:34:[address] [facility] Respiratory rate 2022-12-02 13:34:00 18 /min [facility] Body height 2022-12-02 13:34:00 182.9 cm Univ [facility] Body weight 2022-12-02 13:34:00 120.203 kg Univ [facility] BMI 2022-12-02 13:34:00 35.94 kg/m2 [facility] Oxygen saturation in Arterial blood by Pulse oximetry 2022-12-02 13:34:00 100 /min [facility] Body height 2022-11-20 20:00:00 182.9 cm Univ [facility] Systolic blood pressure 2022-11-20 16:50:00 124 mm[Hg] [facility] Diastolic blood pressure 2022-11-20 16:50:00 83 mm[Hg] [facility] Heart rate 2022-11-20 16:50:00 61 /min Unive [facility] Body temperature 2022-11-20 16:50:[address] [facility] Respiratory rate 2022-11-20 16:50:00 20 /min [facility] Oxygen saturation in Arterial blood by Pulse oximetry 2022-11-20 16:50:00 98 /min [facility] Body weight 2022-11-20 01:00:00 122 kg [facility] BMI 2022-11-20 01:00:00 36.48 kg/m2 [facility] Systolic blood pressure 2022-09-28 14:31:00 136 mm[Hg] [facility] Diastolic blood pressure 2022-09-28 14:31:00 97 mm[Hg] [facility] Heart rate 2022-09-28 14:31:00 76 /min Unive [facility] Body temperature 2022-09-28 14:31:[address] [facility] Respiratory rate 2022-09-28 14:31:00 18 /min [facility] Body height 2022-09-28 14:31:00 182.9 cm [facility] Body weight 2022-09-28 14:31:00 122.018 kg [facility] BMI 2022-09-28 14:31:00 36.48 kg/m2 [facility] Oxygen saturation in Arterial blood by Pulse oximetry 2022-09-28 14:31:00 98 /min [facility] Systolic blood pressure 2022-09-25 14:52:21 125 mm[Hg] [facility] Diastolic blood pressure 2022-09-25 14:52:21 88 mm[Hg] [facility] Heart rate 2022-09-25 14:52:21 72 /min Unive [facility] Body temperature 2022-09-25 14:52:[address] [facility] Respiratory rate 2022-09-25 14:52:21 16 /min [facility] Oxygen saturation in Arterial blood by Pulse oximetry 2022-09-25 14:52:21 96 /min [facility] Body height 2022-09-25 12:10:00 182.9 cm Univ [facility] Body weight 2022-09-25 12:10:00 122.018 kg [facility] BMI 2022-09-25 12:10:00 36.48 kg/m2 [facility] Systolic blood pressure 2022-09-06 18:47:00 124 mm[Hg] Joseline Seybo ld - External Diastolic blood pressure 2022-09-06 18:47:00 64 mm[Hg] Joseline Seybo ld - External Heart rate 2022-09-06 18:47:00 78 /min Kel y Seybold - External Body temperature 2022-09-06 [...] External Heart rate 2022-08-04 01:30:00 89 /min [facility] Body temperature 2022-08-04 01:30:[address] [facility] Respiratory rate 2022-08-04 01:30:00 18 /min [facility] Body height 2022-08-04 01:30:00 175.3 cm [facility] Body weight 2022-08-04 01:30:00 106.595 kg [facility] BMI 2022-08-04 01:30:00 34.70 kg/m2 [facility] Oxygen saturation in Arterial blood by Pulse oximetry 2022-08-04 01:30:00 100 /min [facility] Systolic blood pressure 2022-08-04 01:30:00 146 mm[Hg] [facility] Diastolic blood pressure 2022-08-04 01:30:00 105 mm[Hg] [facility] Systolic blood pressure 2022-07-12 18:18:00 118 mm[Hg] Joseline Seybo ld - External Diastolic blood pressure 2022-07-12 18:18:00 78 mm[Hg] Ojseline Seybo ld - External Heart rate 2022-07-12 18:18:00 76 /min Sbse y Seybold - External Body temperature 2022-07-12 18:18:00 36.17 Shivnai Joseline Seybold - External Respiratory rate 2022-07-12 [...] Diastolic blood pressure 2022-03-04 21:25:00 84 mm[Hg] Joesline Seybo ld - External Heart rate 2022-03-04 21:25:00 102 /min Sbse y Seybold - External Body temperature 2022-03-04 21:25:00 36.89 Shivani Joseline Seybold - External Respiratory rate 2022-03-04 21:25:00 16 /min Joseline Seybold - External Body height 2022-03-04 21:25:00 182.9 cm Melly ey Seybold - External Body weight 2022-03-04 21:25:00 106.595 kg Melly ey Seybold - External BMI 2022-03-04 21:25:00 31.87 kg/m2 Melly ey Seybold - External Systolic blood pressure 2022-02-28 20:48:00 139 mm[Hg] [facility] Diastolic blood pressure 2022-02-28 20:48:00 92 mm[Hg] [facility] Heart rate 2022-02-28 20:48:00 78 /min [facility] Body temperature 2022-02-28 20:48:[address] [facility] Respiratory rate 2022-02-28 20:48:00 22 /min [facility] Body height 2022-02-28 20:48:00 182.9 cm Univ [facility] Body weight 2022-02-28 20:48:00 106.595 kg [facility] BMI 2022-02-28 20:48:00 31.87 kg/m2 [facility] Oxygen saturation in Arterial blood by Pulse oximetry 2022-02-28 20:48:00 99 /min [facility] Systolic blood pressure 2022-02-13 17:19:00 146 mm[Hg] [facility] Diastolic blood pressure 2022-02-13 17:19:00 85 mm[Hg] [facility] Heart rate 2022-02-13 17:19:00 90 /min Unive [facility] Body temperature 2022-02-13 17:19:[address] [facility] Respiratory rate 2022-02-13 17:19:00 16 /min [facility] Body height 2022-02-13 17:19:00 182.9 cm [facility] Body weight 2022-02-13 17:19:00 106.595 kg [facility] BMI 2022-02-13 17:19:00 31.87 kg/m2 [facility] Oxygen saturation in Arterial blood by Pulse oximetry 2022-02-13 17:19:00 100 /min [facility] Systolic blood pressure 2021-04-18 20:00:00 119 mm[Hg] [facility] Diastolic blood pressure 2021-04-18 20:00:00 72 mm[Hg] [facility] Heart rate 2021-04-18 20:00:00 72 /min [facility] Respiratory rate 2021-04-18 20:00:00 21 /min [facility] Oxygen saturation in Arterial blood by Pulse oximetry 2021-04-18 20:00:00 97 /min [facility] Body temperature 2021-04-18 16:29:[address] [facility] Body height 2021-04-18 16:29:00 182.9 cm [facility] Body weight 2021-04-18 16:29:00 107.956 kg [facility] BMI 2021-04-18 16:29:00 32.28 kg/m2 [facility] Body height 2021-03-15 21:05:00 182.9 cm Melly ey ybcami Body weight 2021-03-15 21:05:00 104.327 kg Melly ey Seybold BMI 2021-03-15 21:05:00 31.19 kg/m2 Melly ey ybold Systolic blood pressure 2021-03-15 20:55:00 118 mm[Hg] Joseline Seybo ld Diastolic blood pressure 2021-03-15 20:55:00 78 mm[Hg] Joseline Seybo ld Heart rate 2021-03-15 20:55:00 108 /min Kel y ybcami Body temperature 2021-03-15 20:55:00 36.72 Shivani Joseline Bean Oxygen saturation in Arterial blood by Pulse oximetry 2021-03-15 20:55:00 98 /min Joselinemalissa Kohlio mahendra Procedures Procedure Date / Time Performed Performing Clinician Source XR CHEST 2 VW 2024-05-19 15:50[facility] FOR GROUP A 2024-05-19 [facility] COVID NAAT 2024-05-19 15:16:[address] [facility] RABIES VACCINE, IM 2023-07-12 16:29:39 Doctor Un assigned, [place] [facility] RABIES VACCINE, IM 2023-07-01 23:31:31 [facility]W RIGHT 2023-05-31 22:39:[address] [facility] ASSIGNMENT OF BENEFITS 2023-03-18 19:32:42 Docto r Unassigned, [place] [facility] CONSENT/REFUSAL FOR DIAGNOSIS AND TREATMENT 2023-03-18 18:28:03 Doctor Unassigned, [place] [facility] RAPID STREP SCREEN FOR GROUP A 2023-03-01 01:55:[address] [facility] RAPID INFLUENZA A/B 2023-03-01 01:55:[address] [facility] COVID-19 (ID NOW RAPID TESTING) 2023-03-01 01:55:[address] [facility] CONSENT/REFUSAL FOR DIAGNOSIS AND TREATMENT 2023-03-01 01:37:40 Doctor Unassigned, [place] [facility] RAPID STREP SCREEN FOR GROUP A 2023-01-25 10:33:[address] [facility] CONSENT/REFUSAL FOR DIAGNOSIS AND TREATMENT 2023-01-25 10:18:08 Doctor Unassigned, [place] [facility] US TESTICULAR TORSION 2023-01-11 06:06:[address] [facility] URINALYSIS 2023-01-11 04:00:00 Iovnne Shultz [facility] CONSENT/REFUSAL FOR DIAGNOSIS AND TREATMENT 2023-01-11 03:07:43 Doctor Unassigned, [place] [facility] INSURANCE CORRESPONDENCE 2022-12-10 05:01:00 Doc tor Unassigned, [place] [facility] REFERRAL- REQUEST/RESPONSE 2022-12-09 05:01:00 Doctor Unassigned, [place] [facility] CONSENT/REFUSAL FOR DIAGNOSIS AND TREATMENT 2022-12-02 13:22:20 Doctor Unassigned, [place] [facility] TRANSTHORACIC ECHO (TTE) COMPLETE W/ CONTRAST 2022-11-20 16:09:[address] [facility] TROPONIN I 2022-11-20 13:52:[address] [facility] C-REACTIVE PROTEIN 2022-11-20 07:13:[address] [facility] TROPONIN I 2022-11-20 07:13:[address] [facility] LIPID PANEL ([id number])(TOTAL CHOLESTEROL, TRIGLYCERIDES, HDL) 2022-11-20 07:13:00 Lea Melendez [facility] FERRITIN SERUM 2022-11-20 02:14:00 [facility] TROPONIN I 2022-11-20 02:14:00 Chanel Melendez gunterverónica [facility] FREE T4 2022-11-20 02:14:00 [facility] THYROID STIMULATING HORMONE 2022-11-20 02:14:00 Tobias Melendezhammad [facility] HEPATIC FUNCTION PANEL ([id number]) (ALB,T.PRO,BILI T,BU/BC,ALT,AST,ALK PHOS) 2022-11-20 02:14:00 Al Tate [facility] BASIC METABOLIC PANEL (NA, K, CL, CO2, GLUCOSE, BUN, CREATININE, CA) 2022-11-20 02:14:00 Al Tate [facility] IRON PANEL 2022-11-20 02:14:00 Al [facility] SEDIMENTATION RATE 2022-11-20 02:14:00 Al Tate [facility] CBC WITH DIFF 2022-11-20 02:14:00 [facility] GLYCOSYLATED HEMOGLOBIN (A1C) 2022-11-20 02:14:00 Al Tate [facility] N-TERMINAL PRO-BNP 2022-11-20 02:14:00 Al Tate [facility] XR CHEST 1 VW 2022-11-20 02:08:59 Al [facility] EXTRA TUBE LT. GREEN 2022-11-20 02:05:[address] [facility] INSURANCE CORRESPONDENCE 2022-11-02 05:01:00 Doc tor Unassigned, [facility] US TESTICULAR TORSION 2022-09-28 15:35:[address] [facility] URINALYSIS 2022-09-28 14:52:00 Ivonne Shultz [facility] CONSENT/REFUSAL FOR DIAGNOSIS AND TREATMENT 2022-09-28 14:27:23 Doctor Unassigned, [place] [facility] LIPASE 2022-09-25 12:43:00 [facility] COMP. METABOLIC PANEL ([id number]) 2022-09-25 12:43:[address] [facility] CBC WITH DIFF 2022-09-25 12:43:00 Maral Gamble U [facility] CONSENT/REFUSAL FOR DIAGNOSIS AND TREATMENT 2022-09-25 12:03:13 Doctor Unassigned, [place] [facility] URINALYSIS 2022-08-04 01:52:00 Kain Rajput [facility] NOTICE OF PRIVACY PRACTICES 2022-08-04 01:24:37 Doctor Unassigned, [place] [facility] CONSENT/REFUSAL FOR DIAGNOSIS AND TREATMENT 2022-08-04 01:24:12 Doctor Unassigned, [place] [facility] CONSENT/REFUSAL FOR DIAGNOSIS AND TREATMENT 2022-02-28 20:35:39 Doctor Unassigned, [place] [facility] RAPID STREP SCREEN FOR GROUP A 2022-02-13 18:03:[address] [facility] RAPID INFLUENZA A/B 2022-02-13 18:03:[address] [facility] [facility] COVID-19 (ID NOW RAPID TESTING) 2022-02-13 18:03:[address] [facility] CONSENT/REFUSAL FOR DIAGNOSIS AND TREATMENT 2022-02-13 17:16:02 Doctor [place]assigned[place] [facility] CT ABDOMEN PELVIS W CONTRAST 2021-04-18 18:02:[address] [facility] LIPASE 2021-04-18 17:19:00 Kayla Livingston [facility] MAGNESIUM 2021-04-18 17:19:00 Kayla Livingston [facility] COMP. METABOLIC PANEL (60576) 2021-04-18 17:19:[address] [facility] CBC WITH DIFF 2021-04-18 17:19:00 Kayla Livingston [facility] URINALYSIS 2021-04-18 17:19:00 Kayla Livingston [facility] NOTICE OF PRIVACY PRACTICES 2021-04-18 16:02:42 Doctor Unassigned, [place] [facility] Encounters Start Date/Time End Date/Time Encounter Type Admission Type Attending [facility] Care Department Encounter ID Source 2024-09-29 14:00:00 2024-09-29 14:00:00 Outpatient THU DOBBS [id number] [facility] 2024-09-16 00:00:00 2024-09-16 00:00:00 Outpatient JOSELINE GOLDBERG [id number] [facility] 2024-09-01 15:00:00 2024-09-01 15:00:00 Outpatient THU DOBBS [id number] [facility] 2024-08-10 00:00:00 2024-08-10 00:00:00 Outpatient GISELLA LIND [id number] [facility] 2024-08-06 11:00:00 2024-08-06 11:00:00 Outpatient THU DOBBS [id number] [facility] 2024-08-05 00:00:00 2024-08-05 00:00:00 Outpatient MD JOSELINE MATHIAS [id number] [facility] 2024-08-02 08:00:00 2024-08-02 08:00:00 Outpatient THU DOBBS [id number] [facility] 2024-07-23 00:00:00 2024-07-23 00:00:00 Outpatient JOSELINE GOLDBERG [id number] [facility] 2024-07-19 14:15:00 2024-07-19 14:15:00 Outpatient ZLL317 JOSELINE GOLDBERG [id number] [facility] 2024-07-19 13:45:00 2024-07-19 13:45:00 Outpatient GISELLA LIND JOSELINE GOLDBERG [id number] [facility] 2024-05-19 10:17:00 2024-05-19 11:45:00 Emergency X CORBY KAHN [facility] ERT [id number] [facility] 2024-05-19 10:17:00 2024-05-19 11:45:00 Emergency AdeCorby goodwin [facility] AT [facility] 1.2.840.114 350.1.13.10 4.2.7.2.686 [id number] [facility] 2024-02-29 00:00:00 2024-02-29 00:00:00 Outpatient PIPPA REYNOSO [id number] [facility] 2024-02-20 00:00:00 2024-02-20 00:00:00 Outpatient ROSY GOLDBERG [id number] [facility] 2024-02-19 00:00:00 2024-02-19 00:00:00 Outpatient ROSY GOLDBERG [id number] [facility] 2024-01-28 00:00:00 2024-01-28 00:00:00 Outpatient PIPPA REYNOSO [id number] [facility] 2024-01-19 00:00:00 2024-01-19 00:00:00 Outpatient PIPPA REYNOSO [id number] [facility] 2023-12-19 00:00:00 2023-12-19 00:00:00 Outpatient JOSELINE GOLDBERG [id number] [facility] 2023-12-10 09:00:00 2023-12-10 09:00:00 Outpatient MELIZA BENNETT [id number] [facility] 2023-11-30 00:00:00 2023-11-30 00:00:00 Outpatient PIPPA REYNOSO [id number] [facility] 2023-10-24 00:00:00 2023-10-24 00:00:00 Outpatient JOSELINE GOLDBERG [id number] [facility] 2023-10-23 13:50:00 2023-10-23 13:50:00 Outpatient LAB90 JOSELINE GOLDBERG [id number] [facility] 2023-10-23 00:00:00 2023-10-23 00:00:00 Outpatient PIPPA REYNOSO [id number] [facility] cami 2023-10-17 00:00:00 2023-10-17 00:00:00 Outpatient MD JOSELINE MATHIAS [id number] [facility] anoop 2023-10-17 00:00:00 2023-10-17 00:00:00 Outpatient MD JOSELINE MATHIAS [id number] [facility] cami 2023-10-15 00:00:00 2023-10-15 00:00:00 Outpatient JOHN YIN [id number] [facility] 2023-10-06 00:00:00 2023-10-06 00:00:00 Outpatient JOSELINE GOLDBERG [id number] [facility] 2023-10-03 00:00:00 2023-10-03 00:00:00 Outpatient JOSELINE GOLDBERG [id number] [facility] 2023-10-02 00:00:00 2023-10-02 00:00:00 Outpatient EDGARDO PIPPA JOSELINE GOLDBERG [id number] [facility] 2023-10-01 15:59:00 2023-10-01 17:11:00 Emergency X JULIANA BAIRD TIMOTHY [facility] [id number] [facility] 2023-10-01 15:59:00 2023-10-01 17:11:00 Emergency Juliana Baird AT [facility] 1.2.840.114 350.1.13.10 4.2.7.2.686 [id number] [facility] 2023-10-01 14:45:00 2023-10-01 14:45:00 Outpatient LAB90 JOSELINE GOLDBERG [id number] [facility] 2023-10-01 14:00:00 2023-10-01 14:00:00 Outpatient PIPPA REYNOSO JOSELINE [id number] [facility] 2023-10-01 00:00:00 2023-10-01 00:00:00 Outpatient RADHA HERNANDES JOSELINE [id number] [facility] 2023-10-01 00:00:00 2023-10-01 00:00:00 Outpatient JOSELINE TYSEY [id number] [facility] 2023-09-02 00:00:00 2023-09-02 00:00:00 Outpatient PIPPA REYNOSO JOSELINE [id number] [facility] 2023-08-12 11:39:00 2023-08-12 12:41:00 Emergency X WILLIAN PEREZ JULIO [facility] [id number] [facility] 2023-08-12 11:39:00 2023-08-12 12:41:00 Emergency Willian Perez [facility] 1..840.114 350.1.13.10 4.2.7.2.686 [id number] [facility] 2023-07-12 11:15:00 2023-07-12 11:40:51 Outpatient LEEANN MCCORMICK [facility] [id number] [facility] 2023-07-12 11:15:00 2023-07-12 11:35:00 [facility] 1..840.114 350.1.13.10 4.2.7.2.686 [id number] [facility] 2023-07-05 12:00:00 2023-07-05 12:57:22 Outpatient LEEANN MCCORMICK [facility] [id number] [facility] 2023-07-05 12:00:00 2023-07-05 12:20:00 Nurse [facility] Unknown, Attending [facility] 1.2.840.114 350.1.13.10 4.2.7.2.686 [id number] [facility] 2023-07-01 18:00:00 2023-07-01 18:54:27 Outpatient Kenji NO NUR [facility] [id number] [facility] 2023-07-01 18:00:00 2023-07-01 18:20:00 Urgent Care No Nur Unknown, Attending [facility] 1.2.840.114 350.1.13.10 4.2.7.2.686 [id number] [facility] 2023-06-28 16:49:00 2023-06-28 20:22:00 Emergency Kayla RAMOS [facility] ERT [id number] [facility] 2023-06-28 16:49:00 2023-06-28 20:22:00 Emergency Darryl Owens K Paige [facility] 1.2.840.114 350.1.13.10 4.2.7.2.686 [id number] [facility] 2023-06-23 00:00:00 2023-06-23 00:00:00 Outpatient JOSELINE GOLDBERG [id number] [facility] 2023-06-23 00:00:00 2023-06-23 00:00:00 Outpatient JOSELINE GOLDBERG [id number] [facility] anoop 2023-06-16 00:00:00 2023-06-16 00:00:00 Outpatient PIPPA REYNOSO [id number] [facility] 2023-06-15 00:00:00 2023-06-15 00:00:00 Outpatient PIPPA REYNOSO [id number] [facility] 2023-06-13 13:45:00 2023-06-13 13:45:00 Outpatient JENY HAIDER [id number] [facility] 2023-06-05 00:00:00 2023-06-05 00:00:00 Outpatient JENY HAIDER JOSELINE JOSELINE [id number] [facility] 2023-06-02 00:00:00 2023-06-02 00:00:00 Outpatient PIPPA REYNOSO JOSELINE GOLDBERG [id number] [facility] 2023-06-02 00:00:00 2023-06-02 00:00:00 Outpatient JOSELINE GOLDBERG [id number] [facility] 2023-06-02 00:00:00 2023-06-02 00:00:00 Outpatient EDGARDO PIPPA GOLDBERG [id number] [facility] 2023-05-31 17:06:00 2023-05-31 18:29:00 Emergency X IDNIA DICKEY [facility] ERT [id number] [facility] 2023-05-31 17:06:00 2023-05-31 18:29:00 Emergency India Dickey [facility] 1.2.840.114 350.1.13.10 4.2.7.2.686 [id number] [facility] 2023-05-28 00:00:00 2023-05-28 00:00:00 Outpatient EDGARDO PIPPA GOLDBERG [id number] [facility] 2023-05-28 00:00:00 2023-05-28 00:00:00 Outpatient EDGARDO PIPPA GOLDBERG [id number] [facility] 2023-05-28 00:00:00 2023-05-28 00:00:00 Outpatient SAVANAHDarling PIPPA GOLDBERG [id number] [facility] 2023-05-23 09:30:00 2023-05-23 09:30:00 Outpatient SAVANAHDarling PIPPA GOLDBERG [id number] [facility] 2023-05-23 00:00:00 2023-05-23 00:00:00 Outpatient SAVANAHDarling PIPPA GOLDBERG [id number] [facility] 2023-03-25 00:00:00 2023-03-25 00:00:00 Outpatient GISELLA LIND JOSELINE JOSELINE [id number] [facility] 2023-03-25 00:00:00 2023-03-25 00:00:00 Outpatient GISELLA LIND JOSELINE [id number] [facility] 2023-03-25 00:00:00 2023-03-25 00:00:00 Outpatient JOSELINE GOLDBERG [id number] [facility] 2023-03-19 00:00:00 2023-03-19 00:00:00 Outpatient GISELLA LIND JOSELINE JOSELINE [id number] [facility] 2023-03-18 12:37:00 2023-03-18 13:38:00 Emergency X BANDAR RICHARDSON [facility] ERT [id number] [facility] 2023-03-18 12:37:00 2023-03-18 13:38:00 Emergency RichardsonBandar [facility] 1.2.840.114 350.1.13.10 4.2.7.2.686 [id number] [facility] 2023-02-28 19:47:00 2023-02-28 21:02:00 Emergency X LINDA SAFNORD [facility] ERT [id number] [facility] 2023-02-28 19:47:00 2023-02-28 21:02:00 Emergency Linda Sanford [facility] 1.2.840.114 350.1.13.10 4.2.7.2.686 [id number] [facility] 2023-02-13 00:00:00 2023-02-13 00:00:00 Outpatient JOSELINE GOLDBERG [id number] [facility] 2023-01-25 04:35:00 2023-01-25 06:05:00 Emergency X HUBERRAQUELLORNA SHAE [facility] ERT [id number] [facility] 2023-01-25 04:35:00 2023-01-25 06:05:00 Emergency Shae Gillespie [facility] 1.2.840.114 350.1.13.10 4.2.7.2.686 [id number] [facility] 2023-01-10 21:21:00 2023-01-11 01:38:00 Emergency X IVONNE SHULTZ [facility] ERT [id number] [facility] 2023-01-10 21:21:00 2023-01-11 01:38:00 Emergency Ivonne Shultz [facility] 1.2.840.114 350.1.13.10 4.2.7.2.686 [id number] [facility] 2022-12-25 09:15:00 2022-12-25 09:15:00 Outpatient KACIE QUIROZ [id number] [facility] 2022-12-10 00:00:00 2022-12-10 00:00:00 Orders Only Doctor Unassigned, [place] [facility] 1.2.840.114 350.1.13.10 4.2.7.2.686 [id number] [facility] 2022-12-09 00:00:00 2022-12-09 00:00:00 Orders Only Doctor Unassigned, [place] [facility] 1.2.840.114 350.1.13.10 4.2.7.2.686 [id number] [facility] 2022-12-04 00:00:00 2022-12-04 00:00:00 Outpatient JOSELINE GOLDBERG [id number] [facility] 2022-12-03 00:00:00 2022-12-03 00:00:00 Outpatient GISELLA LIND [id number] [facility] 2022-12-02 08:34:00 2022-12-02 10:08:00 Emergency X Kayla LIVINGSTON [facility] ERT [id number] [facility] 2022-12-02 08:34:00 2022-12-02 10:08:00 Emergency Kayla Livingston [facility] 1..840.114 350.1.13.10 4.2.7.2.686 [id number] [facility] 2022-11-23 00:00:00 2022-11-23 00:00:00 Outpatient PIPPA REYNOSO [id number] [facility] 2022-11-21 00:00:00 2022-11-21 00:00:00 Outpatient JOSELINE GOLDBERG [id number] [facility] 2022-11-19 19:34:00 2022-11-20 16:45:00 Outpatient HAYDEN DUKE [facility] [id number] [facility] 2022-11-19 19:34:00 2022-11-20 16:45:00 Hospital Encounter Jose Guadalupe Meraz [facility] 1..840.114 350.1.13.10 4.2.7.2.686 [id number] [facility] 2022-11-20 13:00:00 2022-11-20 13:00:00 Outpatient KACIE QUIROZ [id number] [facility] 2022-11-19 11:30:00 2022-11-19 11:30:00 Outpatient CECIL CHATMAN [id number] [facility] 2022-11-19 00:00:00 2022-11-19 00:00:00 Outpatient PIPPA REYNOSO [id number] [facility] 2022-11-02 00:00:00 2022-11-02 00:00:00 Outpatient JOSELINE GOLDBERG [id number] [facility] 2022-11-02 00:00:00 2022-11-02 00:00:00 Orders Only Doctor Unassigned, [place] [facility] 1..840.114 350.1.13.10 4.2.7.2.686 [id number] [facility] 2022-11-01 00:00:00 2022-11-01 00:00:00 Outpatient JOSELINE GOLDBERG [id number] [facility] 2022-10-22 00:00:00 2022-10-22 00:00:00 Outpatient EDGARDO PIPPA JOSELINE GOLDBERG [id number] [facility] Seybold 2022-10-22 00:00:00 2022-10-22 00:00:00 Outpatient JOSELINE GOLDBERG [id number] [facility] Sey[facility] 2022-10-18 00:00:00 2022-10-18 00:00:00 Outpatient JOSELINE GOLDBERG [id number] [facility] 2022-10-16 00:00:00 2022-10-16 00:00:00 Outpatient EDGARDO PIPPA JOSELINE GOLDBERG [id number] [facility] 2022-10-15 00:00:00 2022-10-15 00:00:00 Outpatient JOHN YIN JOSELINE GOLDBERG [id number] [facility] 2022-10-15 00:00:00 2022-10-15 00:00:00 Outpatient JOHN YIN JOSELINE GOLDBERG [id number] [facility] 2022-10-11 08:00:00 2022-10-11 08:00:00 Outpatient LABChris JOSELINE GOLDBERG [id number] [facility] Seybold 2022-10-11 00:00:00 2022-10-11 00:00:00 Outpatient PIPPA REYNOSO JOSELINE GOLDBERG [id number] [facility] Seybold 2022-10-08 00:00:00 2022-10-08 00:00:00 Outpatient EDGARDO PIPPA GOLDBERG [id number] [facility] Seybold 2022-10-07 00:00:00 2022-10-07 00:00:00 Outpatient JOSELINE GOLDBERG [id number] [facility] Seybold 2022-10-07 00:00:00 2022-10-07 00:00:00 Outpatient JOSELINE GOLDBERG [id number] [facility] Sey[facility]ami 2022-10-02 00:00:00 2022-10-02 00:00:00 Outpatient EDGARDO PIPPA GOLDBERG [id number] [facility] Kohlicami 2022-09-28 09:34:00 2022-09-28 11:04:00 Emergency X IVONNE SHULTZ [facility] ERT [id number] [facility] 2022-09-28 09:34:00 2022-09-28 11:04:00 Emergency Ivonne Shultz [facility] 1.2.840.114 350.1.13.10 4.2.7.2.686 [id number] [facility] 2022-09-28 00:00:00 2022-09-28 00:00:00 Outpatient EDGARDO PIPPA GOLDBERG [id number] [facility] 2022-09-25 07:15:00 2022-09-25 09:59:00 Emergency X MARAL GAMBLE [facility] ERT [id number] [facility] 2022-09-25 07:15:00 2022-09-25 09:59:00 Emergency Tye [facility] 1.2.840.114 350.1.13.10 4.2.7.2.686 [id number] [facility] 2022-09-11 00:00:00 2022-09-11 00:00:00 Outpatient EDGARDO PIPPA GOLDBERG [id number] [facility] 2022-09-06 14:45:00 2022-09-06 14:45:00 Outpatient LAB90 JOSELINE GOLDBERG [id number] [facility] Bean 2022-09-06 14:00:00 2022-09-06 14:00:00 Outpatient PIPPA REYNOSO [id number] [facility] 2022-09-06 00:00:00 2022-09-06 00:00:00 Outpatient JOSELINE GOLDBERG [id number] [facility] 2022-08-12 00:00:00 2022-08-12 00:00:00 Outpatient JOHN YINSEY [id number] [facility] 2022-08-12 00:00:00 2022-08-12 00:00:00 Outpatient JOSELINE GOLDBERG [id number] [facility] 2022-08-03 20:31:00 2022-08-03 21:56:00 Emergency X KAIN RAJPUT [facility] ERT [id number] [facility] 2022-08-03 20:31:00 2022-08-03 21:56:00 Emergency Kain Rajput [facility] 1.2.840.114 350.1.13.10 4.2.7.2.686 [id number] [facility] 2022-07-19 11:30:00 2022-07-19 11:30:00 Outpatient OSMANIKWASIJOHN JOSELINE G[facility]DBERG [id number] [facility] 2022-07-12 14:00:00 2022-07-12 14:00:00 Outpatient GISELLA LIND [id number] [facility] 2022-07-12 14:00:00 2022-07-12 14:00:00 Outpatient GISELLA LIND [id number] [facility] 2022-07-10 00:00:00 2022-07-10 00:00:00 Outpatient ANNAMARIA JOHN GOLDBERG [id number] [facility] 2022-06-28 00:00:00 2022-06-28 00:00:00 Outpatient GISELLA LIND [id number] [facility] 2022-06-28 00:00:00 2022-06-28 00:00:00 Outpatient GISELLA LIND [id number] [facility] 2022-03-04 15:30:00 2022-03-04 15:30:00 Outpatient GISELLA LIND [id number] [facility] 2022-02-28 14:49:00 2022-02-28 15:41:00 Emergency X IGGY WELLER [facility] ERT [id number] [facility] 2022-02-28 14:49:00 2022-02-28 15:41:00 Emergency Iggy Weller [facility] 1.2.840.114 350.1.13.10 4.2.7.2.686 [id number] [facility] 2022-02-28 00:00:00 2022-02-28 00:00:00 Outpatient OSMANICORAJOHN Davis JOSELINE GOLDBERG [id number] [facility] 2022-02-28 00:00:00 2022-02-28 00:00:00 Outpatient JOSELINE GOLDBERG [id number] [facility] 2022-02-22 15:15:00 2022-02-22 15:15:00 Outpatient MIHAI HAHN JOSELINE GOLDBERG [id number] [facility] 2022-02-13 11:20:00 2022-02-13 12:52:00 Emergency X NASHMANGO HARDY [facility] ERT [id number] [facility] 2022-02-13 11:20:00 2022-02-13 12:52:00 Emergency Hardy Zavala A [facility] 1..840.114 350.1.13.10 4.2.7.2.686 [id number] [facility] 2022-02-13 00:00:00 2022-02-13 00:00:00 Outpatient GISELLA LIND [id number] [facility] 2022-02-13 00:00:00 2022-02-13 00:00:00 Orders Only Doctor Unassigned, [place] [facility] 1.2.840.114 350.1.13.10 4.2.7.2.686 [id number] [facility] 2021-11-05 00:00:00 2021-11-05 00:00:00 Outpatient GISELLA LIND [id number] [facility] 2021-06-25 00:00:00 2021-06-25 00:00:00 Outpatient GISELLA LIND JOSELINE GOLDBERG [id number] [facility] 2021-06-15 00:00:00 2021-06-15 00:00:00 Outpatient GISELLA LIND JOSELINE GOLDBERG [id number] [facility] 2021-04-18 10:30:00 2021-04-18 14:28:00 Emergency X YARA Kayla [facility] ERT [id number] [facility] 2021-04-18 10:30:00 2021-04-18 14:28:00 Emergency Yara Kayla Asiya [facility] 1.2.840.114 350.1.13.10 4.2.7.2.686 [id number] [facility] 2021-04-18 00:00:00 2021-04-18 00:00:00 Outpatient GISELLA LIND JOSELINE GOLDBERG [id number] [facility] 2021-03-28 00:00:00 2021-03-28 00:00:00 Outpatient JOSELINE GOLDBERG [id number] [facility] 2021-03-28 00:00:00 2021-03-28 00:00:00 Outpatient JOSELINE GOLDBERG [id number] [facility] 2021-03-28 00:00:00 2021-03-28 00:00:00 Outpatient GISELLA LIND JOSELINE GOLDBERG [id number] [facility] 2021-03-16 10:20:00 2021-03-16 10:20:00 Outpatient LAB90 JOSELINE GOLDBERG [id number] [facility] 2021-03-16 09:35:00 2021-03-16 09:35:00 Outpatient LAB90 JOSELINE GOLDBERG [id number] [facility] 2021-03-15 15:15:00 2021-03-15 15:45:00 Office Visit Gisella Lind [facility] 1.2.840.114 350.1.13.13 1.2.7.2.686 [id number] [facility] 2021-03-15 00:00:00 2021-03-15 00:00:00 Outpatient GISELLA LIND JOSELINE JOSELINE [id number] [facility] 2021-03-15 00:00:00 2021-03-15 00:00:00 Outpatient GISELLA LIND JOSELINE [id number] [facility] anoop Results Test Description Test Time Test Comments Results Resul t Comments Source XR CHEST 2 VW 2 15:59:50 PROCEDURE: XR CHEST 2 VW 05/19/2024 10:46 AM CLINICAL INDICATION: COUGH COMPARISON: Radiograph of 03/18/2023 TECHNIQUE: PA and lateral views of the chest FINDINGS: The lungs are clear. There is no pleural effusion. ?No pneumothorax. The cardiac size is within normal limits. No aggressive osseous lesion. [facility] XR KNEE 3 VW RIGHT 2023-05-19 3 22:42:42 XR KNEE 3 VW RIGHT HISTORY: ?right knee pain COMPARISON: ?none available. Findings:The osseous structures are intact. Tricompartmental mild osteoarthrosis.Small knee joint effusion.Mild soft tissue edema. ?No abnormal soft tissue calcification. [facility]20 10:43:53* Test Item Value Reference Range Interpretation Comme nts HGB A1C (test code = 4548-4) 5.7 % 4.0-5.7 JAY (test code = JAY) Reference RangesNormal: <5.7%Prediabetes: 5.7 - 6.4%Diabetes: > 6.5% Lab Interpretation (test code = 39876-9) Normal [facility] [id number] 06:15:25* Test Item Value Reference Range Interpretation Comme nts FERRITIN (test code = 0392901263) 36.6 ng/mL 18.0-464.0 JAY (test code = JAY) Biotin has been reported to cause a negative bias, interpret results relative to patient's use of biotin. Lab Interpretation (test code = 38910-2) Normal [facility] CenterIRON [id number] 05:48:00* Test Item Value Reference Range Interpretation Comme nts IRON (test code = 5824495793) 109 ug/dL 50-160 TIBC (test code = 9031963703) 387 ug/dL 250-410 % FE SAT (test code = 7466381255) 28 % 20-50 Lab Interpretation (test cod e = 74803-6) Normal [facility]FR [id number] 05:10:55* Test Item Value Reference Range Interpretation Comme nts FREE T4 (test code = 6882043958) 1.12 See_Comment [Automated [employer] [address] The system which generated this result transmitted reference range: 0.78 - 2.20 ng/dL:. The reference range was not used to interpret this result as normal/abnormal. Lab Interpretation (test code = 13203-7) Normal [facility] CenterSEDIMENTATION [id number] 04:03:25* Test Item Value Reference Range Interpretation Comme nts ESR (test code = 86206-3) 2 See_Comment [Automated message] The system which generated this result transmitted reference range: 2 - 30 mm/HR. The reference range was not used to interpret this result as normal/abnormal. Lab Interpretation (test code = 52065-5) Normal [facility] CenterN-TERMINAL [id number] 03:50:48* Test Item Value Reference Range Interpretation Comme nts NT-proBNP (test code = 32787-1) <=125 Lab Interpretation (test cod e = 32394-8) Normal [facility] CenterTHYROID STIMULATING [id number] 03:15:04 * Test Item Value Reference Range Interpretation Comme nts TSH (test code = 7126240814) 8.65 See_Comment H [Automated [employer] The system which generated this result transmitted reference range: 0.45 - 4.70 mIU/L. The reference range was not used to interpret this result as normal/abnormal. Lab Interpretation (test code = 64572-2) Abnormal [facility] CenterTROPONIN [id number] 02:56:39* Test Item Value Reference Range Interpretation Comme nts TROPONIN I (test code = 4630158449) 0.002 ng/mL <=0.034 JAY (test code = [...] of biotin. Lab Interpretation (test code = 59429-5) Normal [facility] METABOLIC PANEL (NA, K, CL, CO2, GLUCOSE, BUN, CREATININE, CA)2022-11-20 02:40:39* Test Item Value Reference Range Interpretation Comme nts NA (test code = 1519840410) 135 mmol/L 135-145 K (test code = 2048834394) 4.1 mmol/L 3.5-5.0 CL (test code = 1977629463) 104 mmol/L 98-108 CO2 TOTAL (test code = 5344402018) 23 mmol/L 23-31 AGAP (test code = 5782891161) 8 2-16 BUN (test code = 0903395974) 14 mg/dL 7-23 GLUCOSE (test code = 0795297735) 100 mg/dL 70-110 CREATININE (test code = 1753501494) 0.67 mg/dL 0.60-1.25 CALCIUM (test code = 2598804705) 9.0 mg/dL 8.6-10.6 eGFR (test code = 1257448160) 139.3 mL/min/1.73m2 JAY (test code = JAY) [...] or urine or abnormalities in imaging tests). [facility] (89432) (ALB,T.PRO,BILI T,BU/BC,ALT,AST,ALK PHOS)2022-11-20 02:40:39* Test Item Value Reference Range Interpretation Comme nts TOTAL BILI (test code = 2575678070) 0.4 mg/dL 0.1-1.1 BILI UNCON (test code = 9872319481) 0.4 mg/dL 0.1-1.1 BILI CONJ (test code = 0426487500) 0.0 mg/dL 0.0-0.3 T PROTEIN (test code = 0701291334) 7.3 g/dL 6.3-8.2 ALBUMIN (test code = 4569902012) 4.6 g/dL 3.5-5.0 ALK PHOS (test code = 3965519752) 42 U/L 34-122 ALTv (test code = 1742-6) 86 U/L 5-50 H AST(SGOT) (test code = 9517008222) 41 U/L 13-40 H Lab Interpretation (test cod e = 64927-4) Abnormal [facility] WITH [id number] 02:33:58* Test Item Value Reference Range Interpretation Comme nts WBC (test code = 6690-2) 9.15 See_Comment [Automated [employer] The system which generated this result transmitted [...] g/dL 31.2-35.0 H RDW-SD (test code = 03887-2) 39.2 fL 38.5-51.6 RDW-CV (test code = 788-0) 12.5 % 12.1-15.4 PLT (test code = 777-3) 220 See_Comment [Automated messa ge] The system which generated this result transmitted reference range: 150 - 328 10*3/?L. The reference range was not used to interpret this result as normal/abnormal. MPV (test code = 61125-6) 11.8 fL 9.8-13.0 NRBC/100 WBC (test code = 6985422232) 0.0 See_Comment [Automated [employer] ssage] The system which generated this result transmitted reference range: 0.0 - 10.0 /100 WBCs. The reference range was not used to interpret this result as normal/abnormal. NRBC x10^3 (test code = 0871375242) See_Comment [Automated messa ge] The system which generated this result transmitted reference range: 10*3/?L. The reference range was not used to interpret this result as normal/abnormal. GRAN MAT (NEUT) % (test code = 770-8) 68.5 % IMM GRAN % (test code = 1203755111) 0.30 % LYMPH % (test code = 736-9) 20.9 % MONO % (test code = 5905-5) 7.5 % EOS % (test code = 713-8) 2.3 % BASO % (test code = 706-2) 0.5 % GRAN MAT x10^3(ANC) (test code = 9432910218) 6.26 10*3/uL 1.99-6.95 IMM GRAN x10^3 (test code = 8700579877) 0.03 10*3/uL 0.00-0.06 LYMPH x10^3 (test code = 731-0) 1.91 10*3/uL 1.09-3.23 MONO x10^3 (test code = 742-7) 0.69 10*3/uL 0.36-1.02 EOS x10^3 (test code = 711-2) 0.21 10*3/uL 0.06-0.53 BASO x10^3 (test code = 704-7) 0.05 10*3/uL 0.01-0.09 Lab Interpretation (test code = 83038-6) Abnormal [facility]OL[facility] PAN[facility] (79990)2022-09-25 13:24:42* Test Item Value Reference Range Interpretation Comme nts NA (test code = 7916871797) 138 mmol/L 135-145 K (test code = 3502579286) 3.7 mmol/L 3.5-5.0 CL (test code = 9553562316) 102 mmol/L 98-108 CO2 TOTAL (test code = 5055101875) 25 mmol/L 23-31 AGAP (test code = 6311581534) 11 2-16 BUN (test code = 8382960138) 15 mg/dL 7-23 GLUCOSE (test code = 3521677482) 119 mg/dL 70-110 H CREATININE (test code = 0850537877) 0.80 mg/dL 0.60-1.25 TOTAL BILI (test code = 1208108918) 0.5 mg/dL 0.1-1.1 CALCIUM (test code = 4930392348) 8.7 mg/dL 8.6-10.6 T PROTEIN (test code = 8119699838) 7.8 g/dL 6.3-8.2 ALBUMIN (test code = 3197499753) 4.5 g/dL 3.5-5.0 ALK PHOS (test code = 9197289821) 45 U/L 34-122 ALTv (test code = 1742-6) 82 U/L 5-50 H AST(SGOT) (test code = 6676841031) 44 U/L 13-40 H eGFR (test code = 8423460160) 113.5 mL/min/1.73m2 JAY (test code = JAY) [...] imaging tests). Lab Interpretation (test code = 68322-1) Abnormal [facility]2023-[facility] 13:24:02* Test Item Value Reference Range Interpretation Comme nts LIPASE (test code = 1602072707) 290 U/L 0-220 H Lab Interpretation (test cod e = 49624-0) Abnormal [facility] WITH [id number] 13:10:59* Test Item Value Reference Range Interpretation Comme nts WBC (test code = 6690-2) 8.31 See_Comment [Automated [employer] The system which generated this result transmitted reference range: 4.20 - 10.70 10*3/?L. The reference range was not used to interpret this result as normal/abnormal. RBC (test code = 789-8) 5.34 See_Comment [Automated messa ge] The system which [...] g/dL 31.2-35.0 H RDW-SD (test code = 59519-1) 38.1 fL 38.5-51.6 L RDW-CV (test code = 788-0) 12.4 % 12.1-15.4 PLT (test code = 777-3) 202 See_Comment [Automated [employer]] The system which generated this result transmitted reference range: 150 - 328 10*3/?L. The reference range was not used to interpret this result as normal/abnormal. MPV (test code = 46849-3) 11.9 fL 9.8-13.0 NRBC/100 WBC (test code = 9732618243) 0.0 See_Comment [Automated [employer] ssage] The system which generated this result transmitted reference range: 0.0 - 10.0 /100 WBCs. The reference range was not used to interpret this result as normal/abnormal. NRBC x10^3 (test code = 3567388914) See_Comment [Automated [employer]] The system which generated this result transmitted reference range: 10*3/?L. The reference range was not used to interpret this result as normal/abnormal. GRAN MAT (NEUT) % (test code = 770-8) 70.7 % IMM GRAN % (test code = 2772205324) 0.80 % LYMPH % (test code = 736-9) 18.4 % MONO % (test code = 5905-5) 7.0 % EOS % (test code = 713-8) 2.6 % BASO % (test code = 706-2) 0.5 % GRAN MAT x10^3(ANC) (test code = 9619599269) 5.87 10*3/uL 1.99-6.95 IMM GRAN x10^3 (test code = 1602310817) 0.07 10*3/uL 0.00-0.06 H LYMPH x10^3 (test code = 731-0) 1.53 10*3/uL 1.09-3.23 MONO x10^3 (test code = 742-7) 0.58 10*3/uL 0.36-1.02 EOS x10^3 (test code = 711-2) 0.22 10*3/uL 0.06-0.53 BASO x10^3 (test code = 704-7) 0.04 10*3/uL 0.01-0.09 Lab Interpretation (test code = 57432-8) Abnormal [facility]2022-03-02 18:18:55* Test Item Value Reference Range Interpretation Comme nts MAGNESIUM (test code = 3553483021) 1.6 mg/dL 1.7-2.4 L Lab Interpretation (test cod e = 73211-1) Abnormal [facility] MET[facility]OLIC PANEL (87070)2021-04-18 18:18:35* Test Item Value Reference Range Interpretation Comme nts NA (test code = 6782915380) 136 mmol/L 135-145 K (test code = 5959187691) 4.6 mmol/L 3.5-5.0 CL (test code = 9182609905) 102 mmol/L 98-108 CO2 TOTAL (test code = 3584459623) 24 mmol/L 23-31 AGAP (test code = 4524749833) 2-16 BUN (test code = 6921652476) 12 mg/dL 7-23 GLUCOSE (test code = 8810944276) 95 mg/dL 70-110 CREATININE (test code = 9651030397) 0.78 mg/dL 0.60-1.25 TOTAL BILI (test code = 6877029696) 0.6 mg/dL 0.1-1.1 CALCIUM (test code = 9542475310) 9.3 mg/dL 8.6-10.6 T PROTEIN (test code = 8011356699) 7.1 g/dL 6.3-8.2 ALBUMIN (test code = 5254985634) 4.6 g/dL 3.5-5.0 ALK PHOS (test code = 6915885541) 54 U/L 34-122 ALTv (test code = 1742-6) 53 U/L 5-50 H AST(SGOT) (test code = 3659999470) 37 U/L 13-40 eGFR (test code = 2624444720) mL/min/1.73m2 JAY (test code = JAY) Association [...] imaging tests). Lab Interpretation (test code = 50126-2) Abnormal [facility]2022-03-02 18:18:35* Test Item Value Reference Range Interpretation Comme nts LIPASE (test code = 4910420220) 49 U/L 0-220 Lab Interpretation (test cod e = 81131-5) Normal [facility] WITH [id number] 18:05:30* Test Item Value Reference Range Interpretation Comme nts WBC (test code = 6690-2) See_Comment H [Automated messa ge] The system [...] 35.0 g/dL 31.2-35.0 RDW-SD (test code = 07167-4) 37.9 fL 38.5-51.6 L RDW-CV (test code = 788-0) 12.5 % 12.1-15.4 PLT (test code = 777-3) See_Comment [Automated messa ge] The system which generated this result transmitted reference range: 150 - 328 10*3/?L. The reference range was not used to interpret this result as normal/abnormal. MPV (test code = 63828-5) 12.1 fL 9.8-13.0 NRBC/100 WBC (test code = 9772292892) See_Comment [Automated me ssage] The system which generated this result transmitted reference range: 0.0 - 10.0 /100 WBCs. The reference range was not used to interpret this result as normal/abnormal. NRBC x10^3 (test code = 7857565433) <0.01 See_Comment [Automated messa ge] The system which generated this result transmitted reference range: 10*3/?L. The reference range was not used to interpret this result as normal/abnormal. GRAN MAT (NEUT) % (test code = 770-8) 72.0 % IMM GRAN % (test code = 2928071946) 0.60 % LYMPH % (test code = 736-9) 19.4 % MONO % (test code = 5905-5) 6.7 % EOS % (test code = 713-8) 1.0 % BASO % (test code = 706-2) 0.3 % GRAN MAT x10^3(ANC) (test code = 4842879789) 8.94 10*3/uL 1.99-6.95 H IMM GRAN x10^3 (test code = 4625348243) 0.08 10*3/uL 0.00-0.06 H LYMPH x10^3 (test code = 731-0) 2.41 10*3/uL 1.09-3.23 MONO x10^3 (test code = 742-7) 0.83 10*3/uL 0.36-1.02 EOS x10^3 (test code = 711-2) 0.13 10*3/uL 0.06-0.53 BASO x10^3 (test code = 704-7) 0.04 10*3/uL 0.01-0.09 Lab Interpretation (test code = 36873-5) Abnormal [facility] Notes Date/Time Note Provider Source 2024-09-01 15:01:06 Chief Complaint Patient presents with Follow-up Needs refill on antibiotic ointment Dora Acevedo LVN [facility] 2024-05-19 11:43:47 Pt given printed and verbal discharge instructions regarding cough, acute bronchitis, and viral syndrome, encouraged hydration. Prescriptions provided. Pt verbalized understanding of instructions, pt awake alert oriented, resp reg unlabored, skin w/d, color appropriate for race, moves all ext well, pt encouraged to follow up with pcp. Advised to seek medical attention for new/prolonged/worsening of symptoms. Symptoms addressed. No adverse reaction to meds given in ER noted upon discharge. Pt leaving amb with steady gait, in no apparent distress. Linh Rosa RN [facility] 2024-05-19 10:07:33 Pt presents to ED from home with c/o "for 1 week now off and on I have had fever, sore all over, headache, coughing, rib pain and vomiting. My ribs hurt from coughing the last 6 days" Pt states yesterday he thought he felt better and went to work and now today feels worse. Bernadine Ji RN [facility] 2023-10-01 16:55:00 Pt given printed and verbal [...] other. Nicolette Olvera RN [facility] 2023-10-01 15:56:56 Pt states, "I just came from my PCP. They wanted me to come here to get more evaluated for my hemmorids. I spoke to a national account representative on the phone who said I could come here to go to the ER and have them possibly surgically removed. The pain is a 15 on the 10 scale." Pt appears in no acute distress and appears to be sitting comfortably. Domi Cazares RN [facility] 2023-10-01 15:51:00 [facility] Emergency Department Note Patient Name: Angel Chaney Date of : 1990 33 year old male Treatment Room: [facility] ED RTA [facility] Primary Care Physician: Gisella Lind Patient Escorted [...] for follow-up Gisella Lind MD Specialty: -FAMILY [place] [address] [facility] [id number] Instructions: As needed Electronically signed by: Juliana Baird DO 10/01/23 1636 [facility] 2023-10-01 13:39:27 Chief Complaint Patient presents with Hemorrhoids Hemorrhoid issues. Bright red and dark blood in stool. Increased pain. Mitzi Paniagua MA II [facility] 2023-08-12 12:41:08 Pt given printed and [...] with steady gait, in no apparent distress, [facility] 2023-08-12 11:36:45 Patient arrived ambulatory c/o of lower back pain that started Friday. Denies any injury. States pain is shooting down his right leg. Attempted heating pad and ibuprofen at home with no relief. 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 Promptly contact for obvious discrepancies. Willian Perez MD, FACEP, FAAEM Can Filling Machine Operator of Emergency and Internal Medicine [facility] #[id number] Willian Perez MD 08/12/23 0489 [facility] 2023-06-28 20:21:17 Pt discharged with diagnosis of raccoon bite. Printed and verbal instructions reviewed with and given to patient. Prescriptions given x 1. Pt verbalized understanding of teaching, medications, and recommended follow-up. Denies questions or concerns at this time. Pt ambulatory at discharge. Appears in no apparent distress. No ataxia noted. Accompanied by family member. Referral sent to for follow-up rabies vaccinations. [facility] 2023-06-28 19:48:06 Applied nonstick drsg and secured w/ kerlix. Educated on s/sx infection. Patient and able to teach back. Medicated per EMAR. Awaiting DC orders. T [facility] 2023-06-28 19:33:06 Order rec'd for 800 mg ibuprofen per provider. T [facility] 2023-06-28 18:50:00 Pt alert, color improved, A&OX4. remains in room. Medicated per EMAR. [facility] 2023-06-28 18:42:00 During infiltration of medication to left thumb by provider pt noted to hyperventilate, vagal down, and syncope. in room. Reclined chair for safety, applied cool compresses to neck and forehead. VSS, HR new but rising. RR even, unlabored. Pallor and diaphoresis noted during episode. T [facility] 2023-06-28 17:45:00 Placed pt's left hand in sterile water and hibaclens soak. [facility] 2023-06-28 16:45:34 Patient states: "About 4 hours ago I was attacked by a raccoon." Reports bite to left thumb. Hazel Cote RN [facility] 2023-05-31 18:29:09 Pt given printed and [...] distress, Viktoriya Frias RN [facility] 2023-05-31 17:03:57 Patient states: "About 3 weeks ago I fell on my right knee and it's been killing me ever since" Hazel Cote RN [facility] - Health 2023-05-31 17:00:00 [facility] Emergency Department Note Patient Name: Angel Chaney Date of : 1990 33 year old male Treatment Room: [facility] ED RTA [facility] Primary Care Physician: Gisella Lind Patient Escorted by: Family [5] Mode of Arrival: Personal means [1] EMS 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 HE FELL LAST FRIDAY AND THE PAIN HAS FLARED UP. HE HAS NEVER HAD ANY TREATMENT FOR THE PAIN. NO XRAYS. Mitzi Paniagua MA II Mitzi Paniagua MA, II [facility] 2023-03-18 13:37:42 Patient discharged with diagnosis of bronchitis. Follow up with pcp. Take rx as prescribed. Verbalized understanding. B AID [facility] 2023-03-18 12:36:21 Cough and sore throat x 1 week. 2 weeks ago he was diagnosed with covid. Coughing up dark green sputum. E Malone RN [facility] 2023-02-28 20:53:41 Pt given printed and [...] with steady gait, in no apparent distress B AID Carmen Peña RN [facility] 2023-02-28 19:44:18 Pt presents with cold symptoms since last night, bodyaches, cough, sore throat and loss of taste and smell. B AID Bernadine Ji RN [facility] 2022-09-28 11:03:07 Formatting of this n [...] distress, James Malone RN [facility] 2022-09-28 09:29:34 Formatting of this n [...] patient has no pain. Viktoriya Frias RN [facility] 2022-09-25 09:52:48 Formatting of this n [...] the ER.Escorted by RN. Dionne Artis RN [facility] 2022-09-25 07:38:45 Formatting of this n [...] of plan of care. Dionne Artis RN [facility] 2022-09-25 07:08:48 Formatting of this n ote might be different from the original. Abd pain ~ 1 week with occasional nausea/vomiting - last emesis episode this morning prior to ER arrival. Points to R/L lower abdominal pain when describing pain. Denies shortness of breath , chest pain, fever, chills, and diarrhea. Hx - Ulcers Dionne Artis RN [facility] 2022-09-06 13:52:37 Formatting of this n [...] having at this time. VSS, medications reconciled. [facility]
[2024-09-22 10:31] LABS: Absolute Lymphocytes (CBC) 1.3 K/uL (0.7-4.9); Hematocrit 42.2 % (39.6-49.0); Hemoglobin 14.4 g/dL (13.6-17.9); MCH 27.7 pg (27.0-35.0); MCHC 34.1 g/dL (32.0-36.0); MCV 81.3 fL (80-100); MPV 9.7 fL (7.6-11.3); Nucleated RBC Absolute Count 0.0 (0-0); Nucleated Red Blood Cells % 0.1 % (0-0); RBC Red Blood Cell Count 5.19 M/uL (4.33-5.43); White Blood Count 7.90 thou/uL (4.3-10.9)
[2024-09-22 10:38] LABS: PT Prothrombin Time 12.8 SECONDS (10-13.0); Protime INR 1.14
[2024-09-22 10:53] LABS: ALT/SGPT 62 U/L (16-61); Albumin 2.7 g/dL (3.4-5.0); Albumin/Globulin Ratio 0.6 (1.1-1.8); Alkaline Phosphatase 54 U/L (45-117); Anion Gap 7.4 mEq/L (5.0-15.0); BUN Blood Urea Nitrogen 10 mg/dL (7-18); Globulin 4.2 g/dL (2.3-3.5); Glucose Level 89 mg/dL (74-106)
[2024-09-22 10:55] LABS: AST/SGOT 39 U/L (15-37); Bilirubin Indirect, Calculated 0.2 mg/dL (0.2-0.8); Potassium 4.4 mEq/L (3.5-5.1); Troponin High Sensitivity < 3.0 pg/mL (<58.9)
--- NOTE | 2024-09-22 11:07 | EDPHYS ---
Physician Documentation [facility] Name: Angel Osborne Age: 34 yrs Sex: Male : 1990 Arrival Date: 09/22/2024 Time: 09:44 Bed 4 Private MD: ED Physician Carlos Jamil HPI: 09/22 10:27 This 34 yrs old Male presents to ER via Ambulatory with complaints of Fall Injury, sp3 Dizziness, Vomiting, Chest Pain. 10:27 34-year-old male with history of hemorrhoids, episodic rectal bleeding status post sp3 multiple colonoscopies with Dr. Grijalva, who also sees Dr. Partida for his hemorrhoids, presents to the ED with chief complaint generalized weakness and concerns of anemia. He states that Dr. Spencer at [facility] has told him that he has been anemic. He is never had a blood transfusion. He denies any headache, fever, neck pain, trauma, chest pain, shortness of breath, back pain, abdominal pain, other bleeding, syncope, near syncope, rash, or any other signs or symptoms on ROS at this time.. Historical: - Allergies: 09:56 NKA; ap3 - PMHx: 09:56 acid reflux; Depression; hemorrhoids; ap3 - PSHx: 09:56 Hemorrhoidectomy; ap3 - Immunization history:: Adult Immunizations up to date. - Infectious Disease History:: Denies. - Social history:: Smoking status: Reported history of juuling and/or vaping. ROS: 10:28 Eyes: Negative for injury, pain, redness, and discharge, Neck: Negative for injury, sp3 pain, and swelling, Cardiovascular: Negative for chest pain, palpitations, and edema, Respiratory: Negative for shortness of breath, cough, wheezing, and pleuritic chest pain, Back: Negative for injury and pain, MS/Extremity: Negative for injury and deformity, Skin: Negative for injury, rash, and discoloration, Neuro: Negative for headache, weakness, numbness, tingling, and seizure, Psych: Negative for depression, anxiety, suicide ideation, homicidal ideation, and hallucinations, Allergy/Immunology: Negative for hives, rash, and allergies, Endocrine: Negative for neck swelling, polydipsia, polyuria, polyphagia, and marked weight changes, 10:28 All other systems are negative, Exam: 10:28 Constitutional: This is a well developed, well nourished patient who is awake, alert, sp3 and in no acute distress. Head/Face: Normocephalic, atraumatic. Eyes: Pupils equal round and reactive to light, extra-ocular motions intact. Lids and lashes normal. Conjunctiva and sclera are non-icteric and not injected. Cornea within normal limits. Periorbital areas with no swelling, redness, or edema. ENT: Nares patent. No nasal discharge, no septal abnormalities noted. External auditory canals are clear. Oropharynx with no redness, swelling, or masses, exudates, or evidence of obstruction, uvula midline. Mucous membranes moist. Neck: Trachea midline, no thyromegaly or masses palpated, and no cervical lymphadenopathy. Supple, full range of motion without nuchal rigidity, or vertebral point tenderness. No Meningismus. Chest/axilla: Normal chest wall appearance and motion. Nontender with no deformity. No lesions are appreciated. Cardiovascular: Regular rate and rhythm with a normal S1 and S2. No gallops, murmurs, or rubs. Normal PMI, no JVD. No pulse deficits. Respiratory: Lungs have equal breath sounds bilaterally, clear to auscultation and percussion. No rales, rhonchi or wheezes noted. No increased work of breathing, no retractions or nasal flaring. Abdomen/GI: Soft, non-tender, with normal bowel sounds. No distension or tympany. No guarding or rebound. No evidence of tenderness throughout. Back: No spinal tenderness. No costovertebral tenderness. Full range of motion. Skin: Warm, dry with normal turgor. Normal color with no rashes, no lesions, and no evidence of cellulitis. MS/ Extremity: Pulses equal, no cyanosis. Neurovascular intact. Full, normal range of motion. Neuro: Awake and alert, GCS 15, oriented to person, place, time, and situation. Cranial nerves II-XII grossly intact. Motor strength 5/5 in all extremities. Sensory grossly intact. Cerebellar exam normal. Normal gait. Psych: Awake, alert, with orientation to person, place and time. Behavior, mood, and affect are within normal limits. 10:39 ECG was reviewed by the Attending Physician. EKG demonstrates normal sinus rhythm at 65 sp3 bpm with normal intervals, normal QRS, normal axis, normal ST/T-segment's without evidence of acute ischemia. Vital Signs: 09:53 BP 122 / 90; Pulse 78; Resp 18; Temp 98.1(O); Pulse Ox 99% on R/A; Weight 120.2 kg; ap3 Height 6 ft. 0 in. ; Pain 10/10; 09:53 Body Mass Index 35.94 (120.20 kg, 182.88 cm) ap3 09:53 Pain Scale: Adult ap3 MDM: 10:03 Medical Screening Exam initiated sp3 10:29 Data reviewed: vital signs, nurses notes, lab test result(s), EKG. ED course: sp3 34-year-old male with generalized weakness. Vital signs are normal. Differential diagnosis includes viral illness, anemia, electrolyte deficiency, among others. I am not highly suspicious of sepsis, shock, acute coronary syndrome, acute GI blood loss, or any other critical process at this time. If workup negative we will safely discharge patient home as he is extensive care team already in place with good follow-up.. 11:06 ED course: Full workup negative. We will safely discharge patient home.. sp3 09/22 10:04 Order name: Basic Metabolic Panel; Complete Time: 11: sp3 09/22 10:04 Order name: CBC with Diff; Complete Time: 11: sp3 09/22 10:04 Order name: LFT's; Complete Time: 11: sp3 09/22 10:04 Order name: PT-INR; Complete Time: 11: sp3 09/22 10:04 Order name: Troponin HS; Complete Time: 11: sp3 09/22 10:04 Order name: Type And Screen; Complete Time: 11: sp3 09/22 10:04 Order name: EKG; Complete Time: 10: sp3 09/22 10:04 Order name: EKG - Nurse/Tech; Complete Time: 10:25 sp3 09/22 10:04 Order name: IV Saline Lock; Complete Time: 10: sp3 09/22 10:04 Order name: Labs collected and sent; Complete Time: 10:25 sp3 Administered Medications: No medications were administered Disposition Summary: 09/22/24 11:07 Discharge Ordered Notes: Location: Home sp3 Condition: Stable sp3 Diagnosis - Generalized weakness sp3 Followup: sp3 - With: Private Physician - When: Upon discharge from the Emergency Department - Reason: Continuance of care Discharge Instructions: - Discharge Summary Sheet sp3 - Viral Illness, Adult sp3 Forms: - Work release form ap3 - Medication Reconciliation Form sp3 - Antibiotic Education sp3 - Prescription Opioid Use sp3 - Patient Portal Instructions sp3 - Leadership Thank You Letter sp3 Signatures: Dispatcher [employer] EDMS Greta Back Amanda, RN RN ap3 Carlos Jamil MD MD sp3 Corrections: (The following items were deleted from the chart) 10:04 10:04 BASIC METABOLIC PANEL+C.LAB.BRZ ordered. EDMS EDMS 10:04 10:04 CBC+H.LAB.BRZ ordered. EDMS EDMS 10:04 10:04 HEPATIC FUNCTION+C.LAB.BRZ ordered. EDMS EDMS 10:04 10:04 PROTIME (+INR)+COAG.LAB.BRZ ordered. EDMS EDMS 10:04 10:04 Troponin High Sensitivity+C.LAB.BRZ ordered. EDMS EDMS 10:04 10:04 TYPE AND SCREEN+BB.LAB.BRZ ordered. EDMS EDMS
--- NOTE | 2024-09-22 11:07 | ER ---
Nurse's Notes [facility] Name: Angel Osborne Age: 34 yrs Sex: Male : 1990 Arrival Date: 09/22/2024 Time: 09:44 Bed 4 Private MD: Diagnosis: Generalized weakness Presentation: 09/22 09:53 Chief complaint: Patient states: he has a "chronic issue of losing blood through his ap3 rectum, and I am anemic". Patient reports he started feeling weak on Friday09/18/24, patient reports vomiting started this morning. Patient reports falling when the vomited the last time. Patient also reports leg cramping that started 09/19/24. Patient also reports chest pain that "feels like it is on fire.". Coronavirus screen: At this time, the client does not indicate any symptoms associated with coronavirus-19. Ebola Screen: No symptoms or risks identified at this time. Initial Sepsis Screen: Does the patient meet any 2 criteria? No. Patient's initial sepsis screen is negative. Does the patient have a suspected source of infection? No. Patient's initial sepsis screen is negative. Risk Assessment: Do you want to hurt yourself or someone else? Patient reports no desire to harm self or others. Onset of symptoms was September 18, 2024. 09:53 Method Of Arrival: Ambulatory ap3 09:53 Acuity: MIKE 2 ap3 Triage Assessment: 09:57 General: Appears uncomfortable, Behavior is calm, cooperative, appropriate for age. ap3 Pain: Complains of pain in chest, abdomen, right arm, right leg and left leg. Neuro: Level of Consciousness is awake, alert, obeys commands, Oriented to person, place, time, situation, Appropriate for age. Cardiovascular: Reports chest pain, Patient's skin is warm and dry. Respiratory: Airway is patent Respiratory effort is even, unlabored, Respiratory pattern is regular, symmetrical. GI: Reports rectal bleeding, hemorrhoids, nausea, vomiting. Historical: - Allergies: 09:56 NKA; ap3 - PMHx: 09:56 acid reflux; Depression; hemorrhoids; ap3 - PSHx: 09:56 Hemorrhoidectomy; ap3 - Immunization history:: Adult Immunizations up to date. - Infectious Disease History:: Denies. - Social history:: Smoking status: Reported history of juuling and/or vaping. Screenin:57 Abuse screen: Denies threats or abuse. Nutritional screening: No deficits noted. ap3 Tuberculosis screening: No symptoms or risk factors identified. 10:24 [facility] ED Fall Risk Assessment (Adult) History of falling in the last 3 months, ph including since admission Yes- single mechanical fall (1 pt) Confusion or Disorientation No (0 pts) Intoxicated or Sedated No (0 pts) Impaired Gait No (0 pts) Mobility Assist Device Used No (0 pt) Altered Elimination Score/Fall Risk Level 0 - 2 = Low Risk Oriented to surroundings, Maintained a safe environment, Hourly rounding (assess needs \\T\\ fall precautionary measures) done, Used ambulatory aids as needed (educated on \\T\\ assisted with). Assessment: 10:23 General: Appears in no apparent distress. comfortable, Behavior is calm, cooperative. ph Pain: Complains of pain in "all over". Neuro: Level of Consciousness is awake, alert, obeys commands, Oriented to person, place, time, situation. Cardiovascular: Reports chest pain, fatigue, lightheadedness, nausea, vomiting, Capillary refill < 3 seconds in bilateral fingers Patient's skin is warm and dry. Rhythm is sinus rhythm. Respiratory: Airway is patent Respiratory effort is even, unlabored, Respiratory pattern is regular, symmetrical. GI: Reports rectal bleeding, nausea, vomiting. Derm: Skin is pink, warm \\T\\ dry. Vital Signs: 09:53 BP 122 / 90; Pulse 78; Resp 18; Temp 98.1(O); Pulse Ox 99% on R/A; Weight 120.2 kg; ap3 Height 6 ft. 0 in. ; Pain 10; 09:53 Body Mass Index 35.94 (120.20 kg, 182.88 cm) ap3 09:53 Pain Scale: Adult ap3 ED Course: 09:48 Patient arrived in ED. al6 09:49 Carlos Jamil MD is Attending Physician. sp3 09:56 Triage completed. ap3 09:57 Arm band placed on right wrist. ap3 10:23 Nini Pittman, RN is Primary Nurse. ph 10:24 Patient has correct armband on for positive identification. Bed in low position. Call ph light in reach. Side rails up X 1. potline monitor on. Pulse ox on. NIBP on. Door closed. Noise minimized. 10:24 Initial lab(s) drawn, by ED staff, sent to lab. EKG done, by ED staff, reviewed by ph Carlos Jamil MD. Inserted saline lock: 18 gauge in right antecubital area, using aseptic technique. Blood collected. Flushed with 10 mL NS. 10:25 Type And Screen Sent. ph 10:25 Basic Metabolic Panel Sent. ph 10:25 LFT's Sent. ph 10:25 CBC with Diff Sent. ph 10:25 PT-INR Sent. ph 10:25 Troponin HS Sent. ph 11:49 No provider procedures requiring assistance completed. IV discontinued, intact, ap3 bleeding controlled, No redness/swelling at site. Pressure dressing applied. 11:50 Provided Education on: discharge instructions. ap3 Administered Medications: No medications were administered Medication: 10:24 VIS not applicable for this client. ph Outcome: 11:07 Discharge ordered by MD. sp3 11:49 Discharged to home ambulatory, ap3 11:49 Condition: good 11:49 Discharge instructions given to patient, Instructed on discharge instructions, follow up and referral plans. Demonstrated understanding of instructions, follow-up care, 11:50 Patient left the ED. ap3 Signatures: Nini Pittman RN RN No reed RN RN ap3 Carlos Jamil MD MD sp3 Abigail Carroll Corrections: (The following items were deleted from the chart) 10:26 10:24 Initial lab(s) drawn, by ED staff, sent to lab. EKG done, by ED staff, reviewed ph by Carlos Jamil MD ph 10:26 10:24 Inserted saline lock: 20 gauge in right antecubital area, using aseptic ph technique. Blood collected. Flushed with 10 mL NS ph
[2024-09-22 12:04] VITALS: BP 122/90; TEMP 98.1; O2SAT 99
== END 2024-09-22 11:50 | disposition home or self-care (01) ==
LOC: ER 09:44
DX: R53.1 Weakness (principal); R42 Dizziness and giddiness; R07.9 Chest pain, unspecified; R11.10 Vomiting, unspecified
CPT/HCPCS: 36415; 80048; 80076; 84484; 85025; 85610; 86850; 86900; 86901; 93005; 99284